=== PATIENT | male | born 1960 | race Caucasian/White ===

== ENCOUNTER 2023-12-03 10:02 | Outpatient (OUT) | payer OTHER, SELFPAY ==
[2023-12-03 11:04] LABS: Basophils Absolute Auto 0.1 10^3/uL (0.0-0.1); Basophils Percent Auto 0.6 % (0.2-2.0); Eosinophils Absolute Auto 0.3 10^3/uL (0.0-0.7); Eosinophils Percent Auto 2.8 % (0.9-7.0); Hematocrit 40.2 % (42.0-54.0); Hemoglobin 13.3 g/dL (14.0-18.0); Immature Granulocytes Abs Auto 0.01 10^3/uL (0.00-0.03); Immature Granulocytes Pct Auto 0.1 % (0.0-0.5); Lymphocytes Absolute Auto 1.6 10^3/uL (1.2-3.8); Lymphocytes Percent Auto 17.2 % (20.5-60.0); Mean Corpuscular HGB Conc 33.1 g/dL (29.9-35.2); Mean Corpuscular Hemoglobin 29.9 pg (25.9-34.0); Mean Corpuscular Volume 90.3 fL (80.0-94.0); Monocytes Absolute Auto 0.7 10^3/uL (0.3-0.8); Monocytes Percent Auto 7.7 % (1.7-12.0); Neutrophils Absolute Auto 6.6 10^3/uL (1.4-6.5); Neutrophils Percent Auto 71.6 % (43.0-75.0); Platelet Count 232 10^3/uL (150-450); Red Blood Count 4.45 10^6/uL (4.70-6.10); Red Cell Distribution Width 12.9 % (11.0-15.0); White Blood Count 9.2 10^3/uL (4.0-11.0)
[2023-12-03 11:44] LABS: Chol HDL Ratio 2.3; Cholesterol 105 mg/dL (<=200); HDL Cholesterol 45 mg/dL (40-60); Triglycerides 50 mg/dL (<=150)
[2023-12-03 12:46] LABS: Prostate Specific Antigen Scrn 0.99 ng/mL (<=4.00)
== END 2023-12-03 10:03 | disposition home or self-care (01) ==
PROVIDERS: PCP Internal Medicine; Visit Provider Internal Medicine
DX: Z00.00 Encounter for general adult medical examination without abnormal findings (principal)
CPT/HCPCS: 36415; 80061; 85025; G0103

== ENCOUNTER 2023-12-23 11:31 | Outpatient (OUT) | payer OTHER, SELFPAY ==
--- NOTE | 2023-12-23 11:37 | XR_ITS ---
[address] [address] Patient Name: CATY DOTY MRN: [id number] date: 1960 Sex: M Assigned Patient Location: LAB Current Patient Location: LAB Accession/Order Number: [id number] Exam Date: 12/23/2023 11:38 Report Date: 12/23/2023 15:18 At the request of: MYRTLE MARTINEZ Procedure: XR shoulder LT min 2V PROCEDURE: XR shoulder LT min 2V COMPARISON: None. HISTORY: Left Shoulder Pain M25.512 FINDINGS: BONES:No acute fracture or dislocation. Mild glenohumeral and acromioclavicular joint osteoarthropathy SOFT TISSUES:Negative. No visible soft tissue swelling. EFFUSION:None visible. OTHER: Negative. XR/XR shoulder LT min 2V IMPRESSION: Mild osteoarthritis Electronically authenticated by: CATY TORRES Date: 12/23/2023 15:18
--- OUTSIDE RECORDS SUMMARY | 2023-12-23 11:54 | XMS_ITS | CCD ---
Author Organization [facility] Care Team Providers Care Insurance Operations Rep Name Role Phone Tae Martinez DO Primary Care Provider JUAN, DR IRAHETA Primary Care Unavailable JUAN, DR IRAHETA Admitting Unavailable JUAN, DR IRAHETA Attending Unavailable JUAN, DR IRAHETA Consulting Unavailable JUAN, DR IRAHETA Admitting Unavailable JUAN, DR IRAHETA Attending Unavailable JUAN, DR IRAHETA Consulting Unavailable JUAN, DR IRAHETA Primary Care Unavailable Tae Martinez DO Primary Care Provider Tae Martinez DO Primary Care Provider Tae Martinez Unavailable LAYLA ROGER Referring Unavailable TAE MARTINEZ Primary Care Unavailable Tae Martinez DO Primary Care Provider JESSE LONGO Attending Unavaila TAE Durbin Primary Care Unavailable KYUNGAPCARLOS Petersen Referring Unavailable TAE MARTINEZ Primary Care Unavailable CARLOS GARCIA Attending Unavailable TAE MARTINEZ Primary Care Unavailable JESSE LONGO Attending Unavaila TAE Durbin Primary Care Unavailable TAE MARTINEZ Primary Care Unavailable TAE MARTINEZ Primary Care Unavailable LAYLA ROGER Referring Unavailable TAE MARTINEZ Primary Care Unavailable LAYLA ROGER Attending Unavailable TAE MARTINEZ Primary Care Unavailable LAYLA ROGER Attending Unavailable JESSE LONGO Admitting Unavaila JESSE Blair Attending Unavaila TAE Durbin Primary Care Unavailable ARCHANA HARKINS Admitting Unavailable ARCHANA HARKINS Attending Unavailable TAE MARTINEZ Primary Care Unavailable Allergies Allergy Classification Reported Allergen(s) Allergy Type Date of Onset Reaction(s) Facility (13 sources) Penicillins; Translations: [PENICILLINS] Drug Allergy 03-20-20 19 Rash [facility] (20 sources) Sulfonamides (Antibiotic); Translations: [SULFA (SULFONAMIDE ANTIBIOTICS)] Drug Allergy 03-20-20 19 Swelling [facility] (20 sources) Penicillins Drug Allergy 03-20-20 19 Rash [facility] (1 source) Penicillins Drug allergy (disorder) [facility] (1 source) Sulfonamides (Antibiotic) Drug allergy (disorder) [facility] (1 source) Sulf-10 Drug allergy Unknown Room n House Other (1 source) patient allergy list reviewed by nurse or physicia Propensity to adverse reactions 02-16-20 14 Comment:Done Room n House Other (2 sources) penicillAMINE Drug Allergy Unknown Room n House Other Medications Current Medications Medication Drug Class(es) Dates Sig (Normalized) Sig (Original) apixaban 5 mg oral tablet (20 sources) Factor Xa Inhibitor Start: 01-19-2021 End: 05-17-2023 take 1 tablet by mouth twice daily apixaban (ELIQUIS) 5 mg tab(s) Take 1 tablet by mouth two times a day. 180 tablet 3 05/17/2023 Active Comment on above: Take 5 mg by mouth t wice daily. Take 1 tablet by hansel th twice daily. Take 1 tablet by hansel th two times a day. benazepril hydrochloride 20 mg oral tablet (20 sources) Angiotensin Converting Enzyme Inhibitor Start: 02-10-2019 take 1 tablet by mouth once daily benazepril (LOTENSIN) 20 mg tablet Take 20 mg by mouth once daily. 0 02/10/2019 Active Comment on above: Take 20 mg by mouth once daily. cholecalciferol 0.05 mg oral capsule (20 sources) Vitamin D Start: 10-14-2019 take 1 capsule by mouth once daily Cholecalciferol, Vitamin D3, 50 mcg (2,000 unit) cap Take 2,000 Units by mouth once daily. 0 10/14/2019 Active Comment on above: Take 2,000 Units by mouth once daily. escitalopram 10 mg oral tablet (3 sources) Serotonin Reuptake Inhibitor take 1 tablet by mouth every twenty-four hours Escitalopram Oxalate 10 MG 1 tablet Orally Once a day Active ezetimibe 10 mg oral tablet (10 sources) Dietary Cholesterol Absorption Inhibitor Start: 05-21-2023 take 1 tablet by mouth once daily ezetimibe (ZETIA) 10 mg tablet Take 1 tablet by mouth once daily. 90 tablet 3 05/21/2023 Active Comment on above: Take 1 tablet by hansel once daily. flecainide acetate 100 mg oral tablet (4 sources) Antiarrhythmic Start: 11-08-2023 take 1 tablet by mouth twice daily flecainide (TAMBOCOR) 100 mg tablet Take 1 tablet by mouth two times a day. 60 tablet 2 11/08/2023 Active glucosamine/chondr prieto A sod (OSTEO BI-FLEX ORAL) (20 sources) take 2 tablets by mouth once glucosamine/chond r prieto A sod (OSTEO BI-FLEX ORAL) Take 2 tablets by mouth one time only. 0 Active glucosamine/zuri dr prieto A sod (OSTEO BI-FLEX ORAL) Take by mouth twice daily. 0 Active Comment on above: Take by mouth twice daily. Take 2 tablets by mo [facility] one time only. iv contrast (will be provided with radiology test) (2 sources) Start: End: inject 1 dose intravenously once iv contrast (will be provided with radiology test) CTA Coronary. No IV access, insert saline lock prior to the sedation, infusion, injection for imaging exam. Discontinue saline lock post exam. If Pt. has a central line or IVAD, may access for administration according to line specific nursing protocol. Once exam is complete flush line and de-access according to line specific nursing protocol in the CT contrast administration guidelines link. 1 Each 0 11/09/2021 11/10/2021 Active Comment on above: CTA Coronary. No IV access, insert saline lock prior to the sedation, infusion, injection for imaging exam. Discontinue saline lock post exam. If Pt. has a central line or IVAD, may access for administration according to line specific nursing protocol. Once exam is complete flush line and de-access according to line specific nursing protocol in the CT contrast administration guidelines link. MEN'S MULTI-VITAMIN ORAL (20 sources) MEN'S MULTI-LEVI MIN ORAL Take by mouth once daily. 0 Active Comment on above: Take by mouth once d aily. 24 hr metoprolol succinate 25 mg extended release oral tablet (20 sources) beta-Adrenergic Leia Start: End: take 1 tablet by mouth once daily at bedtime metoprolol succinate ER (TOPROL XL) 25 mg 24 hr tablet Take 1 tablet by mouth daily at bedtime. 90 tablet 3 12/20/2023 12/19/2024 Active Start: 11-27-2023 End: 12-20-2023 take 0.5 tablet by mouth once daily at bedtime metoprolol succinate ER (TOPROL XL) 50 mg 24 hr tablet Indications: Persistent atrial fibrillation (HCC) Take 1/2 tablet by mouth daily at bedtime. 30 tablet 1 11/27/2023 12/20/2023 Discontinued Start: 10-11-2023 take 1 tablet by hansel th once daily at bedtime metoprolol succinate ER (TOPROL XL) 50 mg 24 hr tablet Indications: Persistent atrial fibrillation (HCC) Take 1 tablet by mouth daily at bedtime. 30 tablet 1 10/11/2023 Active Start: 11-27-2021 End: 12-20-2021 metoprolol tartrate, short a cting, (LOPRESSOR) 50 mg tablet Take one 50 mg tablet the evening prior to the CTA examination, take another 50 mg tablet the morning of the CTA examination. 2 tablet 0 11/27/2021 12/20/2021 Discontinued Start: 11-09-2021 End: 11-09-2021 metoprolol tartrate, short a cting, (LOPRESSOR) 50 mg tablet Take one 50 mg tablet the evening prior to the CTA examination, take another 50 mg tablet the morning of the CTA examination. 2 tablet 0 11/09/2021 11/09/2021 Discontinued (Course of therapy completed) Comment on above: Take one 50 mg table t the evening prior to the CTA examination, take another 50 mg tablet the morning of the CTA examination. Take 50mg (1 tablet) at night at 9PM prior to coronary CTA if HR > 60 bpm, and in AM 1 tablet (if HR > 60 bpm). Take 50mg (1 tablet) at night at 9PM prior to coronary CTA if HR is more than 60 bpm, and 1 tablet in the morning if HR is more than 60 bpm). Take 1 tablet by hansel th daily at bedtime. nitroglycerin 0.4 mg sublingual tablet (20 sources) Nitrate Vasodilator Start: 11-10-19 End: 05-11-20 take 1 tablet under the tongue once nitroglycerin sublingual (NITROQUICK) 0.3 mg SL tablet Dissolve 1 tablet under the tongue one time only for 1 dose. To be administered in Radiology for CTA exam 1 tablet 0 11/27/2021 05/11/2022 Discontinued Start: 03-03-2021 End: 05-17-2023 nitroglycerin sublingual (NI TROQUICK) 0.4 mg SL tablet Dissolve 1 tablet under the tongue every 5 minutes as needed for chest pain. If no pain relief call 911. 25 tablet 3 05/17/2023 Active Comment on above: Dissolve 1 tablet un faustino the tongue one time only for 1 dose. To be administered in Radiology for CTA exam Dissolve 1 tablet un faustino the tongue every 5 minutes as needed for chest pain. If no pain relief call 911. perflutren lipid microspheres 1.3 mL in NaCl (PF) 0.9% 10 mL injection (DEFINITY) (7 sources) Start: 11-10-19 22 End: 02-09-20 23 perflutren lipid microspheres 1.3 mL in NaCl (PF) 0.9% 10 mL injection (DEFINITY) rosuvastatin calcium 40 mg oral tablet (20 sources) HMG-CoA Reductase Inhibitor Start: 05-13-20 End: 04-25-20 23 rosuvastatin (CRESTOR) 40 mg tablet take 1 tablet at bedtime 90 tablet 3 04/25/2023 Active Comment on above: Take 1 tablet by hansel th daily at bedtime. TAKE 1 TABLET AT BED TIME s-adenosylmethionine 400 mg oral tablet (20 sources) take 1 tablet by mouth once daily S-Adenosylmethionin e 400 mg tab Take 400 mg by mouth once daily. 0 Active Comment on above: Take 400 mg by mouth once daily. 125 ml sodium chloride 9 mg/ml prefilled syringe (20 sources) Start: 03-03-20 21 End: 02-09-20 23 sodium chloride 0.9 % (flush) 10 mL (BD POSIFLUSH) Comment on above: Inject 2-10 mL intra venously as directed. For Echo procedure sucralfate 1000 mg oral tablet (3 sources) Aluminum Complex Start: 07-18-19 End: 08-17-19 take 1 tablet by mouth four times daily sucralfate (CARAFATE) 1 gram tablet Take 1 tablet by mouth four times daily. 120 tablet 0 07/18/2022 08/17/2022 Active Comment on above: Take 1 tablet by hansel th four times daily. ubidecarenone 200 mg oral capsule (20 sources) take 10 capsules by mouth once daily Coenzyme Q10 200 mg cap Take 200 mg by mouth once daily. 0 Active Comment on above: Take 200 mg by mouth once daily. Zinc (20 sources) Start: 10-14-19 20 take 1 tablet by mouth once daily Zinc 50 mg tab Take 1 tablet by mouth once daily. 0 10/14/2019 Active Comment on above: Take 1 tablet by hansel th once daily. Completed/Discontinued Medications Medication Drug Class(es) Dates Sig (Normalized) Sig (Original) amiodarone hydrochloride 200 mg oral tablet (5 sources) Antiarrhythmic Start: 11-01-2022 End: 01-17-2023 take 1 tablet by mouth once daily amiodarone (PACERONE) 200 mg tablet Take 1 tablet by mouth once daily. 30 tablet 3 11/01/2022 01/17/2023 Discontinued (Course of therapy completed) Comment on above: Take 1 tablet by hansel once daily. aspirin 81 mg delayed release oral tablet (16 sources) Platelet Aggregation Inhibitor, Nonsteroidal Anti-inflammatory Drug Start: 03-03-2021 take 1 tablet by mouth once daily aspirin, enteric coated (ADULT LOW DOSE ASPIRIN) 81 mg EC tablet Take 1 tablet by mouth once daily. 90 tablet 0 03/03/2021 Active Comment on above: Take 1 tablet by hansel once daily. 10 ml lidocaine hydrochloride 10 mg/ml injection (2 sources) Antiarrhythmic, Amide Local Anesthetic Start: 03-06-2022 End: 03-06-2022 lidocaine (PF) 10 mg/mL (1 %) 4 mL injection (XYLOCAINE) Start: 03-06-2022 End: 03-06-2022 lidocaine (PF) 10 mg/mL (1 % ) 4 mL injection (XYLOCAINE) 1 ml methylPREDNISolone acetate 40 mg/ml injection (2 sources) Corticosteroid Start: 03-06-2022 End: 03-06-2022 methylPREDNISolone acetate 40 mg injection (DEPO-Medrol) Start: 03-06-2022 End: 03-06-2022 methylPREDNISolone acetate 4 0 mg injection (DEPO-Medrol) pantoprazole 40 mg delayed release oral tablet (6 sources) Proton Pump Inhibitor Start: 07-18-2022 End: 08-17-2022 take 1 tablet by mouth twice daily pantoprazole DR (PROTONIX) 40 mg tablet Take 1 tablet by mouth twice daily. 60 tablet 0 07/18/2022 Active Comment on above: Take 1 tablet by hansel th twice daily. sotalol hydrochloride 80 mg oral tablet (20 sources) Antiarrhythmic Start: 08-03-2022 End: 11-01-2022 take 1 tablet by mouth once daily sotalol (BETAPACE) 80 mg tablet Take 1 tablet by mouth once daily. 90 tablet 2 08/03/2022 11/01/2022 Discontinued (Course of therapy completed) Start: 11-09-2021 End: 07-04-2022 take 1 tablet by mouth once daily sotalol (BETAPACE) 80 mg tablet Take 1 tablet by mouth once daily. 30 tablet 4 06/04/2022 Active Start: 09-09-2021 End: 11-09-2021 take 1 tablet by mouth twice daily sotalol (BETAPACE) 80 mg tablet Take 1 tablet by mouth twice daily. 60 tablet 3 09/09/2021 11/09/2021 Discontinued Comment on above: Take 1 tablet by hansel th twice daily. Take 1 tablet by hansel th once daily. TAKE 1 TABLET BY HANSEL TH EVERY DAY Problems Active Problems Problem Classification Problem Date Documented Da te Episodic/Chronic Administrative/social admission (1 source) Repeated prescription; Translations: [Encounter for issue of repeat prescription] Episodic Anxiety disorders (4 sources) Generalized anxiety disorder; Translations: [Generalized anxiety disorder] Chronic Cardiac dysrhythmias (20 sources) Persistent atrial fibrillation; Translations: [Other persistent atrial fibrillation] Resolved: 04-21-2021 Chronic Coronary atherosclerosis and other heart disease (5 sources) Coronary atherosclerosis; Translations: [Atherosclerotic heart disease of [place] coronary artery without angina pectoris] Onset: 05-20-2023 Chronic Deficiency and other anemia (4 sources) Anemia, unspecified; Translations: [ANEMIA UNSPECIFIED] Onset: 03-16-2022 Episodic Deficiency and other anemia (1 source) Anemia; Translations: [Anemia, unspecified] Episodic Disorders of lipid metabolism (20 sources) Hyperlipidemia; Translations: [Other hyperlipidemia] Onset: 02-15-2014 Chronic Essential hypertension (20 sources) Essential hypertension; Translations: [Essential (primary) hypertension] Onset: 02-15-2014 Chronic Hyperplasia of prostate (5 sources) Benign prostatic hypertrophy without outflow obstruction; Translations: [Hypertrophy (benign) of prostate without urinary obstruction and other lower urinary tract symptoms [LUTS]] Onset: 02-15-2014 Chronic Immunizations and screening for infectious disease (2 sources) Anti-nuclear factor positive; Translations: [Other specified abnormal immunological findings in serum] Episodic Mycoses (2 sources) Onychomycosis due to dermatophyte ; Translations: [Tinea unguium] Episodic Osteoarthritis (5 sources) Primary gonarthrosis, bilateral; Translations: [Bilateral primary osteoarthritis of knee] Onset: 04-27-2015 Chronic Other aftercare (1 source) Long-term current use of drug therapy; Translations: [Other terminologist (current) drug therapy] Episodic Other aftercare (1 source) 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; 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] 11-08-2023 Episodic Other nutritional; endocrine; and metabolic disorders (1 source) Body mass index 30+ - obesity; Translations: [Body mass index 31.0-31.9, adult] Onset: 02-15-2014 Chronic Other nutritional; endocrine; and metabolic disorders (1 source) Obese class I; Translations: [Body mass index 32.0-32.9, adult] Onset: 02-15-2014 Chronic Other nutritional; endocrine; and metabolic disorders (1 source) Obesity; Translations: [Obesity, unspecified] Onset: 02-15-2014 Chronic Other nutritional; endocrine; and metabolic disorders (1 source) Simple obesity ; Translations: [Other obesity due to excess calories] Onset: 02-15-2014 Chronic Other screening for suspected conditions (not mental disorders or infectious disease) (20 sources) Suspected heart disease; Translations: [Encounter for observation for other suspected diseases and conditions ruled out] Onset: 12-05-2021 Resolved: 04-21-2021 Episodic Pulmonary heart disease (2 sources) Pulmonary hypertension; Translations: [Pulmonary hypertension, unspecified] Chronic Residual codes; unclassified (4 sources) Obstructive sleep apnea syndrome; Translations: [Obstructive sleep apnea (adult) (pediatric)] Chronic Residual codes; unclassified (1 source) Obstructive sleep apnea (adult) (pediatric) Chronic Residual codes; unclassified (5 sources) Sleep apnea; Translations: [Sleep apnea, unspecified] Onset: 10-15-2023 10-15-2023 Chronic Residual codes; unclassified (1 source) H/O: atrial fibrillation; Translations: [Other specified postprocedural states] 11-08-2023 Episodic Thyroid disorders (5 sources) Hypothyroidism; Translations: [Other specified hypothyroidism] Onset: 04-14-2018 Chronic Unclassified (1 source) Aneurysm of the ascending aorta, without rupture; Translations: [Aneurysm of the ascending aorta, without rupture] Unclassified (4 sources) Other persistent atrial fibrillation; Translations: [Persistent atrial fibrillation (HCC)] Onset: 07-18-2022 Past or Other Problems Problem Classification Problem Date Documented Da te Episodic/Chronic Joint disorders and dislocations; trauma-related (2 sources) Current tear of medial cartilage AND/OR meniscus of knee; Translations: [Other tear of medial meniscus, current injury, right knee, initial encounter] Onset: 02-25-2019 Episodic Open wounds of extremities (1 source) Laceration with foreign body, left lower leg, subsequent encounter; Translations: [Laceration with foreign body, left lower leg, subsequent encounter] Onset: 04-14-2018 Episodic Other endocrine disorders (1 source) Disorder of endocrine system; Translations: [Unspecified endocrine disorder] Onset: 02-15-2018 Episodic Other non-traumatic joint disorders (20 sources) Pain in left knee; Translations: [Pain in joint, lower leg] Onset: 07-17-2021 07-17-2021 Episodic Other nutritional; endocrine; and metabolic disorders (1 source) Overweight; Translations: [Overweight] Resolved: 12-14-2021 Episodic Other nutritional; endocrine; and metabolic disorders (1 source) Body mass index 25-29 - overweight; Translations: [Body mass index 28.0-28.9, adult] Onset: 02-25-2019 Episodic Other skin disorders (1 source) Actinic keratosis; Translations: [Actinic keratosis] Onset: 09-12-2016 Episodic Sprains and strains (2 sources) Sprain of left rotator cuff capsule; Translations: [Sprain of left rotator cuff capsule, initial encounter] Onset: 06-24-2018 Episodic Results Test Name Value Interpretation Reference Range Facility ANES POSTPROC EVALon 024 ANES POSTPROC EVAL HNO ID: [id number] Author: ANTOINETTE COSBY MD Service: Critical Care Author Type: Anesthesiologist Type: Anesthesia Postprocedure Evaluation Filed: 11/27/2023 10:50 Note Text: POST ANESTHESIA EVALUATION NOTE : 1960 Procedure Summary Date: 11/27/23 Room / Location: CATH07 / [facility] CATH Anesthesia Start: 934 Anesthesia Stop: 941 Procedure: CARDIOVERSION EXTERNAL ELECTIVE Diagnosis: Atrial fibrillation, unspecified type (HCC) (Atrial fibrillation, unspecified type (HCC) [I48.91]) Surgeons: Archana Harkins MD Responsible Provider: Antoinette Cosby MD Anesthesia Type: general ASA Status: 3 Anesthesia Type: general Airway Type: supplemental O2 Last Vitals Vitals Value Taken Time BP 106/73 11/27/23 1045 Temp 36.2 ?C (97.2 ?F) 11/27/23 1015 HR SpO2 50 11/27/23 1048 Resp 23 11/27/23 1048 SpO2 96 % 11/27/23 1048 Vitals shown include unfiled device data. Post Anesthesia Patient Status Patient Evaluation: PACU. PACU/ICU Patient Condition: stable. Anticipated Disposition: phase 2 then home. Neurological Status: aware and responsive. Pulmonary Status: breathing comfortably on room air Airway Control: returned to baseline unsupported. Cardiovascular Status: stable. Pain Management: clinically adequate Postoperative Hydration: acceptable. Intraoperative Events: no significant anesthesia events Recommendation: continue current plan of care. Anesthesia Observations No Documentation SIGNATURE: Antoinette Cosby MD PATIENT NAME: Caty Kohli DATE: November 27, 2023 TIME: 10:49 AM CSN: [id number] [facility] ANES PRE-OPon 11-27-2023 ANES PRE-OP HNO ID: [id number] Author: ANTOINETTE COSBY MD Service: Critical Care Author Type: Anesthesiologist Type: Anesthesia Preprocedure Evaluation Filed: 11/27/2023 08:37 Note Text: ANESTHESIOLOGY DAY OF SURGERY NOTE : 1960 Procedure Information Date/Time: 11/27/23929 Procedure: CARDIOVERSION EXTERNAL ELECTIVE Location: CATH07 / CATH Surgeons: Archana Harkins MD Estimated body mass index is 27.8 kg/m? as calculated from the following: Height as of this encounter: 188 cm (6' 2 ). Weight as of this encounter: 98.2 kg (216 lb 8 oz). Most recent hematocrit and potassium results: Hematocrit 44.2 11/25/2023 Potassium 4.7 11/25/2023 Relevant Problems ANESTHESIA (+) Sleep apnea CARDIO (+) Atrial fibrillation (HCC) (+) Essential hypertension PULMONARY (+) Sleep apnea I - PHYSICAL EVALUATION AIRWAY Patient intubated: No. Tracheostomy tube not present Mallampati: III. TM distance: >3 FB. Neck ROM: full ROM without neurological symptoms. Mouth opening: adequate. Short neck: no. Thick neck: no DENTAL Dental findings: teeth intact. Additional exam findings: yes. CARDIOVASCULAR Normal cardiovascular observations. Rhythm: irregular Rate: normal PULMONARY Normal pulmonary observations. Breath sounds clear to auscultation. II - ANESTHESIA PLAN ASA Score: 3 Anesthetic Plan: general Airway type: supplemental O2 NPO Status: adequate Beta Leia Monitoring Plan Monitoring plan: standard ASA. Post Procedure Analgesic Plan Postoperative analgesic plan: parenteral or oral opioids. Informed Consent Anesthetic risks, benefits, alternatives, personnel and consent discussed: yes. Patient / Responsible Democrat agrees to proceed: yes Patient / Surrogate agrees to blood products: blood products not planned Significant changes in the patient condition since the History and Physical, not otherwise documented in primary service progress note: no. Potential Anesthesia issues that may suggest increased risk of complications or contraindication to planned procedure: none. Vitals Value Taken Time BP 113/87 11/27/23 0820 Pulse 108 11/27/23 0820 Resp 18 11/27/23 0820 Temp 36.1 ?C (96.9 ?F) 11/27/23 0820 SpO2 95 % 11/27/23 0820 No current facility-administered medications on file as of 11/27/2023. Outpatient Medications as of 11/27/2023 Medication Sig flecainide (TAMBOCOR) 100 mg tablet Take 1 tablet by mouth two times a day. metoprolol succinate ER (TOPROL XL) 50 mg 24 hr tablet Take 1 tablet by mouth daily at bedtime. ezetimibe (ZETIA) 10 mg tablet Take 1 tablet by mouth once daily. apixaban (ELIQUIS) 5 mg tab(s) Take 1 tablet by mouth two times a day. nitroglycerin sublingual (NITROQUICK) 0.4 mg SL tablet Dissolve 1 tablet under the tongue every 5 minutes as needed for chest pain. If no pain relief call 911. rosuvastatin (CRESTOR) 40 mg tablet take 1 tablet at bedtime Cholecalciferol, Vitamin D3, 50 mcg (2,000 unit) cap Take 2,000 Units by mouth once daily. Zinc 50 mg tab Take 1 tablet by mouth once daily. benazepril (LOTENSIN) 20 mg tablet Take 20 mg by mouth once daily. MEN'S MULTI-VITAMIN ORAL Take by mouth once daily. Coenzyme Q10 200 mg cap Take 200 mg by mouth once daily. glucosamine/chondr prieto A sod (OSTEO BI-FLEX ORAL) Take 2 tablets by mouth one time only. S-Adenosylmethionine 400 mg tab Take 400 mg by mouth once daily. I have interviewed and examined the patient. I have reviewed the medical record and/or the pre-anesthesia evaluation, pertinent labs, and test results. This contains updated information obtained within 48 hours of Surgery/Procedure. SIGNATURE: Antoinette Cosby MD PATIENT NAME: Caty Kohli DATE: November 27, 2023 TIME: 8:36 AM CSN: [id number] [facility] BRIEF OP NOTon 11-27-2023 BRIEF OP NOT HNO ID: [id number] Author: ARCHANA HARKINS MD Service: Electrophysiology Author Type: Physician Type: Brief Op Note Filed: 11/27/2023 09:52 Note Text: Uneventful cardioversion of AF to sinus bradycardia under MAC. [facility] ECG COMPLETEon 11-27-2023 ECG COMPLETE Ventricular Rate : 4 4 BPM Atrial Rate : 44 BPM P-R Interval : 203 ms QRS Duration : 110 ms Q-T Interval : 486 ms QTC Calculation(Bazett) : 416 ms Calculated P [place] : 12 degrees Calculated R [place] : -47 degrees Calculated T [place] : -10 degrees Sinus bradycardia Abnormal R-wave progression, late transition Inferior infarct, old Abnormal ECG Confirmed by ARCHANA HARKINS M.D. ([id number]) on 12/01/2023 9:51:31 PM NAME : CATY KOHLI PID : [id number] : 1960 Gender : Male Race : ORD : [id number] Procedure Date : Nov 27 2023 09:40:31 Edit Date : Dec 01 2023 21:51:33 Diagnosis: Sinus bradycardia Abnormal R-wave progression, late transition Inferior infarct, old Abnormal ECG Confirmed by ARCHANA HARKINS M.D. ([id number]) on 12/01/2023 9:51:31 PM Test Reason : Arrhythmia Location : 400 : FVEKG 24 Overread By : ARCHANA HARKINS M.D. Edited By : ARCHANA HARKINS M.D. Referred By : , Acquired by : 400, [facility] ECG COMPLETE Ventricular Rate : 8 4 BPM Atrial Rate : 0 BPM P-R Interval : 191 ms QRS Duration : 113 ms Q-T Interval : 412 ms QTC Calculation(Bazett) : 488 ms Calculated R [place] : -54 degrees Calculated T [place] : 11 degrees Atrial fibrillation Incomplete left bundle branch block Inferior infarct, old Baseline wander in lead(s) V1 Abnormal ECG Confirmed by ARCHANA HARKINS M.D. ([id number]) on 12/01/2023 9:47:55 PM NAME : CATY KOHLI PID : [id number] : 1960 Gender : Male Race : ORD : [id number] Procedure Date : Nov 27 2023 08:25:30 Edit Date : Dec 01 2023 21:47:56 Diagnosis: Atrial fibrillation Incomplete left bundle branch block Inferior infarct, old Baseline wander in lead(s) V1 Abnormal ECG Confirmed by ARCHANA HARKINS M.D. ([id number]) on 12/01/2023 9:47:55 PM Test Reason : Arrhythmia Location : [facility] Overread By : ARCHANA HARKINS M.D. Edited By : ARCHANA HARKINS M.D. Referred By : , Acquired by : 400, [facility] NURSING PROGon 11-27-2023 NURSING PROG HNO ID: [id number] Author: TWLIA PIERRE RN Service: Nursing Author Type: Registered Nurse Type: Nursing Progress Note Filed: 11/27/2023 11:06 Note Text: Nursing Progress Note Topic of Note: post procedure PATIENT NAME: Caty Kohli Patient Location: C D [facility]/ C [facility] Room: C D [facility] ( INVASIVE CARDIOLOGY) Pt in ICRR s/p DCCV. Shocked x1 @275J. Converted from a fib into SB. Neuro intact. Patient tolerating diet. 1044 D/C instructions reviewed with pt AND , verbalized understanding. All questions answered. 1055 Pt ambulated with standby staff assistance, steady gait. 1105 Patient d/c home via w/c in stable condition. All belongings returned. driving. This note was completed by: Twila Pierre Normal [facility] Basic metabolic 2000 panelon 11-25-2023 Anion gap [Moles/Vol] 8 mmol/L Low 9-18 [facility] Comment on above: Order Comment: Speci men Type: BLOOD SPECIMENOrdering Facility: [facility] Address: [address] [place] [address] Performed By: #### 2 4320-2, ####[facility] LABCLIA [id number] [place] [address] Calcium [Mass/Vol] 10.0 mg/dL Normal 8.5-10.2 [facility] Comment on above: Order Comment: Speci men Type: BLOOD SPECIMENOrdering Facility: [facility] Address: [address] [place] [address] Performed By: #### 2 4320-08, ####[facility] LABIA [id number] [place] [address] Chloride [Moles/Vol] 106 mmol/L High 97-105 [facility] Comment on above: Order Comment: Speci men Type: BLOOD SPECIMENOrdering Facility: [facility] Address: [address] [place] [address] Performed By: #### 2 2, ####[facility] LABCLIA [id number] [place] [address] CO2 [Moles/Vol] 27 mmol/L Normal 22-30 [facility] Comment on above: Order Comment: Speci men Type: BLOOD SPECIMENOrdering Facility: [facility] Address: [address] [place] [address] Performed By: #### 2 4322, ####[facility] LABCLIA [id number] [place] [address] Creatinine [Mass/Vol] 0.82 mg/dL Normal 0.73-1.22 [facility] Comment on above: Order Comment: [place] Type: BLOOD SPECIMENOrdering Facility: [facility] Address: [address] [place] [address] Performed By: #### 2 4321-2, ####[facility] LABCLIA [id number] [place] [address] Creatinine and Glomerular filtration rate.predicted panel (S/P/Bld) 97 mL/min/1.73m??? Normal >=60 [facility] Comment on above: Order Comment: [place] Type: BLOOD SPECIMENOrdering Facility: [facility] Address: [address] [place], [place] [address] Result Comment: June mated Glomerular Filtration Rate (eGFR) is calculated using the 2020 CKD-EPI creatinine equation. This equation utilizes serum creatinine, sex, and age as parameters. The creatinine assay has traceable calibration to isotope dilution-mass spectrometry. Refer to KDIGO guidelines for clinical interpretation. In patients with unstable renal function, e.g. those with acute kidney injury, the eGFR may not accurately reflect actual GFR. Performed By: #### 2 4321-2, ####[facility] LABCLIA [id number] [place] [address] Glucose [Mass/Vol] 101 mg/dL High 74-99 [facility] Comment on above: Order Comment: [place] Type: BLOOD SPECIMENOrdering Facility: [facility] Address: [address] [place] [address] Result Comment: The [place] Diabetes Association (ADA) provides guidance for cutoff values for fasting glucose and random glucose. The ADA defines fasting as no caloric intake for at least 8 hours. Fasting plasma glucose results between 100 to 125 mg/dL indicate increased risk for diabetes (prediabetes). Fasting plasma glucose results greater than or equal to 126 mg/dL meet the criteria for diagnosis of diabetes. In the absence of unequivocal hyperglycemia, results should be confirmed by repeat testing. In a patient with classic symptoms of hyperglycemia or hyperglycemic crisis, random plasma glucose results greater than or equal to 200 mg/dL meet the criteria for diagnosis of diabetes. Reference: Standards of Medical Care in Diabetes 2016, [place] Diabetes Association. Diabetes Care. 2016.39(Suppl 1). Performed By: #### 2 4321-2, ####[facility] LABCLIA [id number] [place] [address] Potassium [Moles/Vol] 4.7 mmol/L Normal 3.7-5.1 [facility] Comment on above: Order Comment: Speci men Type: BLOOD SPECIMENOrdering Facility: [facility] Address: [address] [place], [place] [address] Performed By: #### 2 432-2, ####[facility] LABIA [id number] [place] [address] Sodium [Moles/Vol] 141 mmol/L Normal 136-144 [facility] Comment on above: Order Comment: Speci men Type: BLOOD SPECIMENOrdering Facility: [facility] Address: [address] [place] [address] Performed By: #### 2 432-2, ####[facility] LABIA [id number] [place] [address] Urea nitrogen [Mass/Vol] 16 mg/dL Normal 9-24 [facility] Comment on above: Order Comment: Speci men Type: BLOOD SPECIMENOrdering Facility: [facility] Address: [address] [place] [address] Performed By: #### 2 432-2, ####[facility] LABIA [id number] [place] [address] CBC panel Auto (Bld)on 11-24 Erythrocyte distribution width (RBC) [Ratio] 13.2 % Normal 11.5-15.0 [facility] Comment on above: Order Comment: Speci men Type: BLOOD SPECIMENOrdering Facility: [facility] Address: [address] [place] [address] Performed By: #### 5 8410-2 ####[facility] LABCLIA [id number] [place] [address] Hematocrit (Bld) [Volume fraction] 44.2 % Normal 39.0-51.0 [facility] Comment on above: Order Comment: Speci men Type: BLOOD SPECIMENOrdering Facility: [facility] Address: [address] [place] [address] Performed By: #### 5 8410-2 ####[facility] LABCLIA [id number] [place] [address] Hemoglobin (Bld) [Mass/Vol] 14.7 g/dL Normal 13.0-17.0 [facility] Comment on above: Order Comment: Speci men Type: BLOOD SPECIMENOrdering Facility: [facility] Address: [address] [place] [address] Performed By: #### 5 8410-2 ####[facility] LABCLIA [id number] [place] [address] MCH (RBC) [Entitic mass] 30.1 pg Normal 26.0-34.0 [facility] Comment on above: Order Comment: Speci men Type: BLOOD SPECIMENOrdering Facility: [facility] Address: [address] [place] [address] Performed By: #### 5 8410-2 ####[facility] LABCLIA [id number] [place] [address] MCHC (RBC) [Mass/Vol] 33.3 g/dL Normal 30.5-36.0 [facility] Comment on above: Order Comment: Speci men Type: BLOOD SPECIMENOrdering Facility: [facility] Address: [address] [place] [address] Performed By: #### 5 8410-2 ####[facility] LABCLIA [id number] [place] [address] MCV (RBC) [Entitic vol] 90.4 fL Normal 80.0-100.0 [facility] Comment on above: Order Comment: Speci men Type: BLOOD SPECIMENOrdering Facility: [facility] Address: [address] [place] [address] Performed By: #### 5 8410-2 ####[facility] LABCLIA [id number] [place] [address] Nucleated RBC (Bld) [#/Vol] 10*3/uL Normal <0.01 [facility] Comment on above: Order Comment: Speci men Type: BLOOD SPECIMENOrdering Facility: [facility] Address: [address] [place] [address] Performed By: #### 5 8410-2 ####[facility] LABCLIA [id number] [place] [address] Platelet mean volume (Bld) [Entitic vol] 9.8 fL Normal 9.0-12.7 [facility] Comment on above: Order Comment: Speci men Type: BLOOD SPECIMENOrdering Facility: [facility] Address: [address] [place] [address] Performed By: #### 5 8410-2 ####[facility] LABCLIA [id number] [place] [address] Platelets (Bld) [#/Vol] 223 10*3/uL Normal 150-400 [facility] Comment on above: Order Comment: Speci men Type: BLOOD SPECIMENOrdering Facility: [facility] Address: [address] [place] [address] Performed By: #### 5 8410-2 ####[facility] LABCLIA [id number] [place] [address] RBC (Bld) [#/Vol] 4.89 10*6/uL Normal 4.20-6.00 [facility] Comment on above: Order Comment: Speci men Type: BLOOD SPECIMENOrdering Facility: [facility] Address: [address] [place] [address] Performed By: #### 5 8410-2 ####[facility] LABCLIA [id number] [place] [address] WBC (Bld) [#/Vol] 8.76 10*3/uL Normal 3.70-11.00 [facility] Comment on above: Order Comment: Speci men Type: BLOOD SPECIMENOrdering Facility: [facility] Address: [address] [place] [address] Performed By: #### 5 8410-2 ####[facility] LABCLIA [id number] [place] [address] Magnesium SerPl-ncon 11-24 Magnesium [Mass/Vol] 2.2 mg/dL Normal 1.7-2.3 [facility] Comment on above: Order Comment: Speci men Type: BLOOD SPECIMENOrdering Facility: [facility] Address: [address] [place] [address] Performed By: #### 2 4321-2, 49507-9 ####[facility] LABIA [id number] [place] [address] CNPNon 11-21-2023 CNPN Telephone (CAEPAV) CATY KOHLI ([id number]) 1960 [facility] [employer]* Date Time Provider Department 11/21/23 LAYLA ROGER During your visit today, we recorded the following information about you: Layla Roger PA-C 11/21/2023 8:13 AM Signed EKG from 11/14 shows persistent AF Please offer him a cardioversion (we discussed this at last office visit) He will need updated labs (ordered) Dr Donta hall in December needs to stay and he may be set up for redo ablation JANY Luis Ole Gutierrez 11/21/2023 9:14 AM Signed Called and left message for patient to call me back to schedule his cardioversion and to get labs done. Allergies As of Date: 11/21/2023 Noted Allergy Reaction PENICILLINS 03/20/2019 2 - Rash SULFA (SULFONAMIDE ANTIBIOTICS) 03/20/2019 7 - Swelling Date Reviewed: 11/08/2023 Reviewed by: Mary Santo LPN - Fully Assessed Reason for Visit: Patient Update [1234] Primary Visit Diagnosis:Persistent atrial fibrillation (HCC) [I48.19] Order(s):CARDIOVERSIO N, ELECTIVE, ELECTRICAL [[id number]] Order #: [id number]: 1 COMPLETE BLOOD COUNT [SQCBC] Order #: [id number] FUTURE BASIC METABOLIC PANEL [SQBMP] Order #: [id number] FUTURE MAGNESIUM [SQMG1] Order #: [id number] FUTURE Prescriptions as of 11/21/2023 - flecainide (TAMBOCOR) 100 mg tablet Take 1 tablet by mouth two times a day. - metoprolol succinate ER (TOPROL XL) 50 mg 24 hr tablet Take 1 tablet by mouth daily at bedtime. - ezetimibe (ZETIA) 10 mg tablet Take 1 tablet by mouth once daily. - apixaban (ELIQUIS) 5 mg tab(s) Take 1 tablet by mouth two times a day. - nitroglycerin sublingual (NITROQUICK) 0.4 mg SL tablet Dissolve 1 tablet under the tongue every 5 minutes as needed for chest pain. If no pain relief call 911. - rosuvastatin (CRESTOR) 40 mg tablet take 1 tablet at bedtime - Cholecalciferol, Vitamin D3, 50 mcg (2,000 unit) cap Take 2,000 Units by mouth once daily. - Zinc 50 mg tab Take 1 tablet by mouth once daily. - benazepril (LOTENSIN) 20 mg tablet Take 20 mg by mouth once daily. - MEN'S MULTI-VITAMIN ORAL Take by mouth once daily. - Coenzyme Q10 200 mg cap Take 200 mg by mouth once daily. - glucosamine/chondr prieto A sod (OSTEO BI-FLEX ORAL) Take 2 tablets by mouth one time only. - S-Adenosylmethionine 400 mg tab Take 400 mg by mouth once daily. Problem List As Of Date 11/21/2023 Noted Resolved Essential hypertension [I10] 04/08/2018 Under observation for suspected coronary artery* Atrial fibrillation (HCC) [I48.91] Other hyperlipidemia [E78.49] Elevated TSH [R79.89] Pain in left knee [M25.562] 07/17/2021 Abnormal cardiovascular stress test [R94.39] 12/19/2021 Sleep apnea [G47.30] 10/15/2023 Encounter Status:Closed by LAYLA ROGER on 11/21/23 [facility] CNOVon 11-15-2023 CNOV Office Visit (CARDAV ) CATY KOHLI ([id number]) 1960 [facility]* Date Time Provider Department 11/15/23 8:30 AM NURSE CARD [facility] JOVANY HICKMAN During your visit today, we recorded the following information about you: Katlyn Orellana RN 11/15/2023 8:43 AM Signed Pt here for EKG . Pt was started on new medication last week and here for follow up EKG. Pt with no symptoms . Provider notified of completion Referring Provider: LAYLA ROGER [[id number]] Allergies As of Date: 11/15/2023 Noted Allergy Reaction PENICILLINS 03/20/2019 2 - Rash SULFA (SULFONAMIDE ANTIBIOTICS) 03/20/2019 7 - Swelling Date Reviewed: 11/08/2023 Reviewed by: Mary Santo LPN - Fully Assessed Reason for Visit: Nurse Visit [792] Visit Diagnosis:Persistent atrial fibrillation (HCC) [I48.19] Order(s):ECG COMPLETE [ECG01] Order #: [id number] Prescriptions as of 11/15/2023 - flecainide (TAMBOCOR) 100 mg tablet Take 1 tablet by mouth two times a day. - metoprolol succinate ER (TOPROL XL) 50 mg 24 hr tablet Take 1 tablet by mouth daily at bedtime. - ezetimibe (ZETIA) 10 mg tablet Take 1 tablet by mouth once daily. - apixaban (ELIQUIS) 5 mg tab(s) Take 1 tablet by mouth two times a day. - nitroglycerin sublingual (NITROQUICK) 0.4 mg SL tablet Dissolve 1 tablet under the tongue every 5 minutes as needed for chest pain. If no pain relief call 911. - rosuvastatin (CRESTOR) 40 mg tablet take 1 tablet at bedtime - Cholecalciferol, Vitamin D3, 50 mcg (2,000 unit) cap Take 2,000 Units by mouth once daily. - Zinc 50 mg tab Take 1 tablet by mouth once daily. - benazepril (LOTENSIN) 20 mg tablet Take 20 mg by mouth once daily. - MEN'S MULTI-VITAMIN ORAL Take by mouth once daily. - Coenzyme Q10 200 mg cap Take 200 mg by mouth once daily. - glucosamine/chondr prieto A sod (OSTEO BI-FLEX ORAL) Take 2 tablets by mouth one time only. - S-Adenosylmethionine 400 mg tab Take 400 mg by mouth once daily. Problem List As Of Date 11/15/2023 Noted Resolved Essential hypertension [I10] 04/08/2018 Under observation for suspected coronary artery* Atrial fibrillation (HCC) [I48.91] Other hyperlipidemia [E78.49] Elevated TSH [R79.89] Pain in left knee [M25.562] 07/17/2021 Abnormal cardiovascular stress test [R94.39] 12/19/2021 Sleep apnea [G47.30] 10/15/2023 Encounter Status:Closed by KATLYN ORELLANA on 11/15/23 Normal [facility] [id number] 11-15-2023 ECG01 Ventricular Rate : 8 4 BPM QRS Duration : 106 ms Q-T Interval : 398 ms QTC Calculation(Bazett) : 470 ms Calculated R [place] : -62 degrees Calculated T [place] : 40 degrees ATRIAL FIBRILLATION LEFT ANTERIOR FASCICULAR BLOCK CANNOT EXCLUDE INFERIOR MYOCARDIAL INFARCTION (MASKED BY FASCICULAR BLOCK?) , AGE UNDETERMINED ABNORMAL ECG Confirmed by BRETT CHRISTIAN MD ([id number]) on 11/21/2023 8:01:38 PM NAME : CATY KOHLI PID : [id number] : 1960 Gender : Male Race : ORD : Procedure Date : Nov 15 2023 08:38:39 Edit Date : Nov 21 2023 20:05:18 Diagnosis: ATRIAL FIBRILLATION LEFT ANTERIOR FASCICULAR BLOCK CANNOT EXCLUDE INFERIOR MYOCARDIAL INFARCTION (MASKED BY FASCICULAR BLOCK?) , AGE UNDETERMINED ABNORMAL ECG Confirmed by BRETT CHRISTIAN MD ([id number]) on 11/21/2023 8:01:38 PM Test Reason : Location : 192 : AVCRD Overread By : BRETT CHRISTIAN MD Edited By : BRETT CHRISTIAN MD Referred By : LAYLA ROGER Acquired by : , Normal [facility] CNOVon 11-08-2023 CNOV Office Visit (CAEPAV ) CATY KOHLI ([id number]) 1960 [facility]* Date Time Provider Department 11/08/23 4:00 PM LAYLA ROGER CAEPAV During your visit today, we recorded the following information about you: Pulse Blood pressure Weight Height 84/minute 132/80 99.3 kg 1.88 m Layla Roger PA-C 11/08/2023 4:34 PM [facility] Hipolito Mathis Department of Cardiovascular Medicine SECTION OF CARDIAC PACING and ELECTROPHYSIOLOGY OUTPATIENT VISIT DATE November 08, 2023 OUTPATIENT VISIT TYPE ESTABLISHED PRIMARY CARE PHYSICIAN: Tae Martinez ([place]osha) [facility] [place] [address] CHIEF COMPLAINT: Cardiology follow up HISTORY OF PRESENT ILLNESS: Mr. Kohli is a 63 year old male who presents today for follow-up visit. He is a patient of Dr Longo and Dr Garcia with history of persistent atrial fibrillation s/p PVI 07/2022, hypertension, dyslipidemia, RA, BPH, DICK (-CPAP). Seen on 10/10 by myself for recurrent atrial fibrillation complaints. Was given Toprol to help with heart rate control and set up for cardioversion that was completed on 10/14. More recently on 10/31 he called the office reporting recurrent atrial fibrillation again, and is here for follow-up Certainly notices a difference between sinus rhythm and atrial fibrillation. Much more fatigued and tired. Not able to do as much is normal. He is not having any swelling problems. Heart rates are overall controlled; 84 on today's EKG atrial fibrillation He denies chest pain, shortness of breath, orthopnea, cough, edema, palpitations, PND, lightheadedness or syncope. PAST CARDIAC HISTORY: See above PAST MEDICAL HISTORY Diagnosis Date Atrial fibrillation (HCC) BPH (benign prostatic hyperplasia) Elevated TSH Essential hypertension Meningitis spinal 1964 Osteoarthritis of both knees Other hyperlipidemia Rheumatoid arthritis (HCC) Sleep apnea 10/15/2023 Under observation for suspected coronary artery disease PAST SURGICAL HISTORY Procedure Laterality Date ARTHROSCOPY KNEE DIAGNOSTIC W/WO SYNOVIAL BX SPX Right 2012 SHX CARDIAC RADIOFREQUENCY ABLATION 07/18/2022 PVI/PWI (Afib) TONSILLECTOMY HX SOCIAL HISTORY Social History Tobacco Use Smoking status: Never Smokeless tobacco: Never Vaping Use Vaping Use: Never used Substance Use Topics Alcohol use: Yes Comment: rare Drug use: Never FAMILY HISTORY Problem Relation Age of Onset Coronary Artery Disease Father 57 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 ezetimibe (ZETIA) 10 mg tablet Take 1 tablet by mouth once daily. apixaban (ELIQUIS) 5 mg tab(s) Take 1 tablet by mouth two times a day. nitroglycerin sublingual (NITROQUICK) 0.4 mg SL tablet Dissolve 1 tablet under the tongue every 5 minutes as needed for chest pain. If no pain relief call 911. rosuvastatin (CRESTOR) 40 mg tablet take 1 tablet at bedtime Cholecalciferol, Vitamin D3, 50 mcg (2,000 unit) cap Take 2,000 Units by mouth once daily. Zinc 50 mg tab Take 1 tablet by mouth once daily. benazepril (LOTENSIN) 20 mg tablet Take 20 mg by mouth once daily. MEN'S MULTI-VITAMIN ORAL Take by mouth once daily. Coenzyme Q10 200 mg cap Take 200 mg by mouth once daily. glucosamine/chondr prieto A sod (OSTEO BI-FLEX ORAL) Take 2 tablets by mouth one time only. S-Adenosylmethionine 400 mg tab Take 400 mg by mouth once daily. REVIEW OF SYSTEMS: + Findings in bold GENERAL: Negative for: Weight loss or gain, Fever or Chills, Weakness and Sleep difficulties. HEENT: Negative for: Headache, Impaired Vision, Glasses, Hearing Impairment, Ringing in Ears, Nosebleeds, Poor Dental Care, Bleeding Gums and Dentures. NECK: Negative for: Swelling, Pain, Stiffness RESPIRATORY: Negative for: Cough, Blood in Sputum, Shortness of breath, Wheezing, Apnea GASTROINTESTINAL: Negative for: Trouble swallowing, Heartburn, Change in bowel habits, Blood in stool, Dark black stools MUSCULOSKELETAL: Negtive for: Muscle or joint pain, stiffness, Joint swelling NEUROLOGIC/PSYCHIATRI C: Negative for: Weakness, Paralysis, Numbness, Tingling, Tremor, Nervousness or anxiety, Depressed mood, Memory loss SKIN: Negative for: Rash, Itching HEMATOLOGICAL/LYMPHAT IC: Negative for: Easy bruising, Easy bleeding ENDOCRINE: Negative for: Heat or Cold Intolerance, Excessive Sweating, Frequent Urination, Frequent Thirst PHYSICAL EXAMINATION: BP 132/80 (BP Site: Left Arm, BP Position: Sitting, BP Cuff Size: Large Adult) Pulse 84 Ht 188 cm (6' 2.02 ) Wt 99.3 kg (218 lb 14.7 oz) BMI 28.10 kg/m? General: Well appearing, in no acu (more content not included)... Normal [facility] [id number] 11-08-2023 ECG01 Ventricular Rate : 8 4 BPM QRS Duration : 102 ms Q-T Interval : 382 ms QTC Calculation(Bazett) : 451 ms Calculated R [place] : -71 degrees Calculated T [place] : 49 degrees ATRIAL FIBRILLATION LEFT AXIS DEVIATION INFERIOR MYOCARDIAL INFARCTION , AGE UNDETERMINED ABNORMAL ECG Confirmed by BRETT CHRISTIAN MD ([id number]), editor managing newspaper KATLYN ORELLANA ([id number]) on 11/11/2023 2:50:56 PM NAME : CATY KOHIL PID : [id number] : 1960 Gender : Male Race : ORD : Procedure Date : Nov 08 2023 16:12:40 Edit Date : Nov 11 2023 14:51:17 Diagnosis: ATRIAL FIBRILLATION LEFT AXIS DEVIATION INFERIOR MYOCARDIAL INFARCTION , AGE UNDETERMINED ABNORMAL ECG Confirmed by BRETT CHRISTIAN MD ([id number]), editor managing newspaper KATLYN ORELLANA ([id number]) on 11/11/2023 2:50:56 PM Test Reason : Location : 192 : AVCRD Overread By : BRETT CHRISTIAN MD Edited By : KATLYN ORELLANA Referred By : , Acquired by : , Normal [facility] CNPNon 11-01-2023 CNPN Telephone (CAEPAV) CATY KOHLI ([id number]) 1960 [facility]* Date Time Provider Department 11/01/23 JESSE LOGNO CAEPAV During your visit today, we recorded the following information about you: Ciera Segundo, RN 11/01/2023 9:47 AM Signed Patient calling. Cardioversion on 10/15/23. He is back in A-fib since yesterday at 4 pm. He was sitting at his desk, nothing really going on. Rate is currently 87, has been as high as 132. Bp this morning 128/88 Denies dizziness or lightheadedness. No shortness of breath. No chest discomfort. The only unusual thing is that he woke up with slight swelling in his fingers. No swelling in legs/feet/ankles. He feels like he can do his normal routine this morning. Taking eliquis and metoprolol as ordered. His cardioversion follow up appt scheduled for Tuesday 11/07 with Layla Roger. At this time he declines a sooner appt doesn't feel he needs ER, would like to see what provider recommends He asks if we want to see him sooner? Any other recommendations? Cell, detailed message please GO TO THE EMERGENCY ROOM OR CALL 911 IF: * You develop any new symptoms * Your condition worsens * You are concerned or anxious about your condition for any other reason. If you have any questions, call back. Sravani Jimenez RN 11/05/2023 10:10 AM Signed Spoke with patient. Explained Dr. Longo said no additional recommendations at this time and we would see him on Saturday. Patient agreeable. Sravani Jimenez RN Allergies As of Date: 11/01/2023 Noted Allergy Reaction PENICILLINS 03/20/2019 2 - Rash SULFA (SULFONAMIDE ANTIBIOTICS) 03/20/2019 7 - Swelling Date Reviewed: 10/15/2023 Reviewed by: Todd Ledbetter RN - Fully Assessed Reason for Visit: Patient is Back in Afib [Other] Prescriptions as of 11/18/2023 - flecainide (TAMBOCOR) 100 mg tablet Take 1 tablet by mouth two times a day. - metoprolol succinate ER (TOPROL XL) 50 mg 24 hr tablet Take 1 tablet by mouth daily at bedtime. - ezetimibe (ZETIA) 10 mg tablet Take 1 tablet by mouth once daily. - apixaban (ELIQUIS) 5 mg tab(s) Take 1 tablet by mouth two times a day. - nitroglycerin sublingual (NITROQUICK) 0.4 mg SL tablet Dissolve 1 tablet under the tongue every 5 minutes as needed for chest pain. If no pain relief call 911. - rosuvastatin (CRESTOR) 40 mg tablet take 1 tablet at bedtime - Cholecalciferol, Vitamin D3, 50 mcg (2,000 unit) cap Take 2,000 Units by mouth once daily. - Zinc 50 mg tab Take 1 tablet by mouth once daily. - benazepril (LOTENSIN) 20 mg tablet Take 20 mg by mouth once daily. - MEN'S MULTI-VITAMIN ORAL Take by mouth once daily. - Coenzyme Q10 200 mg cap Take 200 mg by mouth once daily. - glucosamine/chondr prieto A sod (OSTEO BI-FLEX ORAL) Take 2 tablets by mouth one time only. - S-Adenosylmethionine 400 mg tab Take 400 mg by mouth once daily. Problem List As Of Date 11/01/2023 Noted Resolved Essential hypertension [I10] 04/08/2018 Under observation for suspected coronary artery* Atrial fibrillation (HCC) [I48.91] Other hyperlipidemia [E78.49] Elevated TSH [R79.89] Pain in left knee [M25.562] 07/17/2021 Abnormal cardiovascular stress test [R94.39] 12/19/2021 Sleep apnea [G47.30] 10/15/2023 Encounter Status:Closed by CIERA SEGUNDO on 11/18/23 [facility] ANES POSTPROC EVALon 024 ANES POSTPROC EVAL HNO ID: [id number] Author: JEMMA DUKE APRN.CRNA Service: Anesthesiology Author Type: Nurse Emt Type: Anesthesia Postprocedure Evaluation Filed: 10/15/2023 11:03 Note Text: POST ANESTHESIA EVALUATION NOTE : 1960 Procedure Summary Date: 10/15/23 Room / Location: CATH07 / CATH Anesthesia Start: 1055 Anesthesia Stop: 1101 Procedure: CARDIOVERSION EXTERNAL ELECTIVE Diagnosis: Atrial fibrillation, persistent (HCC) (Atrial fibrillation, persistent (HCC) [I48.19]) Surgeons: Jesse Longo MD Responsible Provider: Barby Martinez MD Anesthesia Type: general ASA Status: 3 Anesthesia Type: general Airway Type: supplemental O2 Last Vitals Vitals Value Taken Time BP 133/95 10/15/23 1058 Temp 36.1 ?C (97 ?F) 10/15/23 1022 Pulse 71 10/15/23 1100 Resp 26 10/15/23 1100 SpO2 95 % 10/15/23 1100 Post Anesthesia Patient Status Patient Evaluation: bedside. Anticipated Disposition: phase 2 then home. Neurological Status: aware and responsive. Pulmonary Status: breathing comfortably on supplemental oxygen Airway Control: returned to baseline unsupported. Cardiovascular Status: stable. Pain Management: clinically adequate Postoperative Hydration: acceptable. Intraoperative Events: no significant anesthesia events Post Operative Nausea/Vomiting Status: no significant post operative nausea or vomiting Recommendation: continue current plan of care. Anesthesia Observations No Documentation SIGNATURE: Jemma Duke APRN.TOWER CRANE OPERATOR PATIENT NAME: Caty Kohli DATE: October 15, 2023 TIME: 11:03 AM CSN: [id number] [facility] ANES PRE-OPon 10-15-2023 ANES PRE-OP HNO ID: [id number] Author: BARBY MARTINEZ MD Service: Anesthesiology Author Type: Anesthesiologist Type: Anesthesia Preprocedure Evaluation Filed: 10/15/2023 10:30 Note Text: ANESTHESIOLOGY DAY OF SURGERY NOTE : 1960 Procedure Information Date/Time: 10/15/23 1130 Procedure: CARDIOVERSION EXTERNAL ELECTIVE Location: [facility] CATH07 / [facility] CATH Surgeons: Jesse Longo MD Estimated body mass index is 28.35 kg/m? as calculated from the following: Height as of 10/11/23: 188 cm (6' 2.02 ). Weight as of 10/11/23: 100.2 kg (220 lb 14.4 oz). Most recent hematocrit and potassium results: Hematocrit 44.1 10/11/2023 Potassium 5.1 10/11/2023 history of persistent atrial fibrillation s/p PVI 07/2022, hypertension, dyslipidemia, RA, BPH, DICK (no CPAP) Relevant Problems CARDIO (+) Atrial fibrillation (HCC) (+) Essential hypertension I - PHYSICAL EVALUATION AIRWAY Patient intubated: No. Tracheostomy tube not present Mallampati: III. TM distance: >3 FB. Neck ROM: full ROM without neurological symptoms. Mouth opening: adequate. Short neck: no. Thick neck: no DENTAL Dental findings: teeth intact. Additional exam findings: no II - ANESTHESIA PLAN ASA Score: 3 Anesthetic Plan: general Airway type: supplemental O2 The patient is not a current smoker. NPO Status: adequate Beta Leia Monitoring Plan Monitoring plan: standard ASA. Post Procedure Analgesic Plan Informed Consent Anesthetic risks, benefits, alternatives, personnel and consent discussed: yes. Patient / Responsible Democrat agrees to proceed: yes Patient / Surrogate agrees to blood products: Yes No vitals data found for the desired time range. No current facility-administered medications on file as of . Outpatient Medications as of Medication Sig - metoprolol succinate ER (TOPROL XL) 50 mg 24 hr tablet Take 1 tablet by mouth daily at bedtime. - ezetimibe (ZETIA) 10 mg tablet Take 1 tablet by mouth once daily. - apixaban (ELIQUIS) 5 mg tab(s) Take 1 tablet by mouth two times a day. - nitroglycerin sublingual (NITROQUICK) 0.4 mg SL tablet Dissolve 1 tablet under the tongue every 5 minutes as needed for chest pain. If no pain relief call 911. - rosuvastatin (CRESTOR) 40 mg tablet take 1 tablet at bedtime - Cholecalciferol, Vitamin D3, 50 mcg (2,000 unit) cap Take 2,000 Units by mouth once daily. - Zinc 50 mg tab Take 1 tablet by mouth once daily. - benazepril (LOTENSIN) 20 mg tablet Take 20 mg by mouth once daily. - MEN'S MULTI-VITAMIN ORAL Take by mouth once daily. - Coenzyme Q10 200 mg cap Take 200 mg by mouth once daily. - glucosamine/chondr prieto A sod (OSTEO BI-FLEX ORAL) Take 2 tablets by mouth one time only. - S-Adenosylmethionine 400 mg tab Take 400 mg by mouth once daily. I have interviewed and examined the patient. I have reviewed the medical record and/or the pre-anesthesia evaluation, pertinent labs, and test results. This contains updated information obtained within 48 hours of Surgery/Procedure. SIGNATURE: Barby Martinez MD PATIENT NAME: Caty Kohli DATE: October 15, 2023 TIME: 9:22 AM CSN: [id number] Normal [facility] ECG COMPLETEon 10-15-2023 ECG COMPLETE Ventricular Rate : 9 0 BPM Atrial Rate : 100 BPM P-R Interval : 145 ms QRS Duration : 96 ms Q-T Interval : 376 ms QTC Calculation(Bazett) : 460 ms Calculated R [place] : -46 degrees Calculated T [place] : 13 degrees Atrial fibrillation Left anterior fascicular block Abnormal R-wave progression, late transition Baseline wander in lead(s) V1 Abnormal ECG Confirmed by LYNDA TELLEZ MD ([id number]) on 10/28/2023 11:43:15 PM NAME : CATY KOHLI PID : [id number] : 1960 Gender : Male Race : ORD : [id number] Procedure Date : Oct 15 2023 09:49:49 Edit Date : Oct 28 2023 23:43:17 Diagnosis: Atrial fibrillation Left anterior fascicular block Abnormal R-wave progression, late transition Baseline wander in lead(s) V1 Abnormal ECG Confirmed by LYNDA TELLEZ MD ([id number]) on 10/28/2023 11:43:15 PM Test Reason : Pre-OP Location : 400 : FVEKG 19 Overread By : LYNDA TELLEZ MD Edited By : LYNDA TELLEZ MD Referred By : , Acquired by : , Normal [facility] EKGon 10-15-2023 Electrocardiogram Ventricular Rate : 6 1 BPM Atrial Rate : 61 BPM P-R Interval : 163 ms QRS Duration : 102 ms Q-T Interval : 434 ms QTC Calculation(Bazett) : 438 ms Calculated P [place] : -1 degrees Calculated R [place] : -45 degrees Calculated T [place] : 7 degrees Sinus rhythm Abnormal R-wave progression, late transition Inferior infarct, old Abnormal ECG Confirmed by LYNDA TELLEZ MD ([id number]) on 10/28/2023 11:46:31 PM NAME : CATY KOHLI PID : [id number] : 1960 Gender : Male Race : ORD : Procedure Date : Oct 15 2023 11:01:54 Edit Date : Oct 28 2023 23:46:35 Diagnosis: Sinus rhythm Abnormal R-wave progression, late transition Inferior infarct, old Abnormal ECG Confirmed by LYNDA TELLEZ MD ([id number]) on 10/28/2023 11:46:31 PM Test Reason : Location : 400 : [facility] 19 Overread By : LYNDA TELLEZ MD Edited By : LYNDA TELLEZ MD Referred By : , Acquired by : Clemencia CHU [facility] HISTORY PHYSICALon HISTORY PHYSICAL HNO ID: [id number] Author: NAIF ROY APRN.TECHNICAL SALES SUPPORT SPECIALIST, DNP Service: Cardiovascular Disease Author Type: Nurse Practitioner Type: H&P Filed: 10/15/2023 10:18 Note Text: UPDATED PROCEDURAL SEDATION HISTORY AND PHYSICAL EXAMINATION SERVICE DATE: 10/15/2023 SERVICE TIME: 10:10 AM PROCEDUREALIST: Surgeon(s) and Role: * Jesse Longo MD - Primary PHYSICAL EXAM MUST BE COMPLETED ON ADMISSION The History and Physical (completed in the past 30 days) has been reviewed and the patient has been examined. The contents accurately reflect the patient's condition with the following additions or revisions since the HANDP was completed. This HANDP can be found in the Electronic Medical Record. Examination indicates that the patient presents for: CARDIOVERSION EXTERNAL ELECTIVE ASA Class: ASA Class:: Patient with mild systemic disease No data found. AIRWAY: Airway Visualization of Uvula: Yes Mouth opening greater than 2 fingerbreadths: Yes Neck Full Range of Motion: Yes LUNGS: Lungs clear to auscultation, Good diaphragmatic excursion CARDIAC: irregular CAROTIDS: Without bruits LE PULSES: Right Leg- Palpable. Left Leg- Palpable History of TIA: No History of MO: No Diabetes: No History of Bleeding Issues: No SEDATION GOAL: Moderate DATA: Diagnostic tests reviewed for today's visit: Most recent EKG Most recent labs POC INR: CBC: Recent Labs 10/11/23 1457 WBC 10.29 RBC 4.93 HB 14.6 HCT 44.1 PLT 262 MCV 89.5 MCH 29.6 MPV 10.6 Coags: No results for input(s): PT , INR , APTT in the last 720 hours. BMP: Recent Labs 10/11/23 1457 NA 138 K 5.1 CHLOR 103 CO2 26 BUN 18 CREAT 0.71* GLUC 87 Provisional Diagnosis/Treatment Plan: CARDIOVERSION EXTERNAL ELECTIVE Assessment: Mr. Caty Kohli is a 63 year old male with h/o HTN, dyslipidemia, RA, BPH, DICK on CPAP, h/o paroxysmal atrial fibrillation with PVI 07/2022, now with persistent afib. Plan: Ordered Pre-op LABS and EKG reviewed and results evaluated. The medical history was reviewed and updated. Proceed with procedure - EKG today: atrial fibrillation, HR 90 bpm - labs 10/11/23: creatinine 0.17, K 5.1, mag 2.2, CBC normal I spent a total of 20 minutes on the date of the service which included preparing to see the patient, [id number] patient care, completing clinical documentation, obtaining and/or reviewing separately obtained history, performing a medically appropriate examination, counseling and educating the patient/family/caregi artemio, and ordering medications, tests, or procedures. SIGNATURE: Naif Roy APRN.TECHNICAL SALES SUPPORT SPECIALIST, DNP PATIENT NAME: Caty Kohli DATE: October 15, 2023 TIME: 10:10 AM PAGER: Normal [facility] NURSING PROGon 10-15-2023 NURSING PROG HNO ID: [id number] Author: TODD LEDBETTER RN Service: ? Author Type: Registered Nurse Type: Nursing Progress Note Filed: 10/15/2023 12:32 Note Text: 1102 Patient S/P cardioversion. Shocked x 2. Once at 200J then 360J. Converted to SR. Arousalable upon calling. Following commands. VSS. ECG complete. 1110 to bedside. PO started. 1130 Tolerating po well. 1155 Silvadene applied to front and back pad sites. DC instructions reviewed. Patient denies need to void. 1205 IV dc'd. Patient dressing without difficulty. Denies feeling dizzy or lightheaded. [address] [facility] via in stable condition. [facility] OPERATIVE NOon 10-15-2023 OPERATIVE NO HNO ID: [id number] Author: JESSE LONGO MD Service: Cardiovascular Medicine Author Type: Physician Type: Operative Report Filed: 10/15/2023 11:59 Note Text: PROCEDURE NOTE: CARDIOVERSION The risks, benefits, alternatives, and personnel discussed with patient or office machines sales representative who consents to the procedure. UNIVERSAL PROTOCOL / SAFETY CHECKLIST: Procedure to be performed: DC cardioversion. Sign in Communication: Completed. Time Out: Team Confirms the Correct Patient, Correct Procedure, Correct Site and Site Marking, Correct Position (if applicable). Time: 10:50am. Affirmation of Time Out: YES. Sign Out Discussion: Completed. Pre-operative diagnosis: persistent afib Post-operative diagnosis: successful Cardioversion for afib Procedure type: DC cardioversion Staff: Jesse Longo MD Brief History: 63M with persistent afib and prior ablation . Noted with recurrent afib and now presents for DC cardioversion. The patient was placed on a monitor and supplemental oxygen. Adjunct airway equipment, suction and other necessary items were prepared. The patient was sedated with Brevital. Following sedation patient was cardioverted at 360 with conversion to normal sinus rhythm. A post conversion EKG was completed. The patient tolerated the procedure well. Assessment: successful DC cardioversion for afib Plan/Recommendations: continue current meds Medication changes: none Appointment: as scheduled Jesse Longo MD October 15, 2023 11:57 AM [facility] CNPMable 10-14-2023 TIFFANIEN Telephone (VICK) CATY KOHLI ([id number]) 1960 M Anatoly Ut* Date Time Provider Department 10/14/23 LAYLA ROGER During your visit today, we recorded the following information about you: Shelley Ireland 10/14/2023 12:53 PM Signed ----- Message ----- From: Layla Roger PA-C Sent: 10/11/2023 3:12 PM EDT CVN next week --> either location but if at then request Dr Longo. See me post CVN 2'valente weeks afterwards Layla Roger PA-C [facility] [place] 10/14/2023 1:26 PM Signed Called and spoke to patient and scheduled his cardioversion with Dr Longo for tomorrow. 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 Follow up scheduled. Allergies As of Date: 10/14/2023 Noted Allergy Reaction PENICILLINS 03/20/2019 2 - Rash SULFA (SULFONAMIDE ANTIBIOTICS) 03/20/2019 7 - Swelling Date Reviewed: 10/11/2023 Reviewed by: Mary Santo LPN - Fully Assessed Reason for Visit: Procedure [88] Cmt: Cardioversion Prescriptions as of 10/14/2023 - metoprolol succinate ER (TOPROL XL) 50 mg 24 hr tablet Take 1 tablet by mouth daily at bedtime. - ezetimibe (ZETIA) 10 mg tablet Take 1 tablet by mouth once daily. - apixaban (ELIQUIS) 5 mg tab(s) Take 1 tablet by mouth two times a day. - nitroglycerin sublingual (NITROQUICK) 0.4 mg SL tablet Dissolve 1 tablet under the tongue every 5 minutes as needed for chest pain. If no pain relief call 911. - rosuvastatin (CRESTOR) 40 mg tablet take 1 tablet at bedtime - Cholecalciferol, Vitamin D3, 50 mcg (2,000 unit) cap Take 2,000 Units by mouth once daily. - Zinc 50 mg tab Take 1 tablet by mouth once daily. - benazepril (LOTENSIN) 20 mg tablet Take 20 mg by mouth once daily. - MEN'S MULTI-VITAMIN ORAL Take by mouth once daily. - Coenzyme Q10 200 mg cap Take 200 mg by mouth once daily. - glucosamine/chondr prieto A sod (OSTEO BI-FLEX ORAL) Take 2 tablets by mouth one time only. - S-Adenosylmethionine 400 mg tab Take 400 mg by mouth once daily. Problem List As Of Date 10/14/2023 Noted Resolved Essential hypertension [I10] 04/08/2018 Under observation for suspected coronary artery* Atrial fibrillation (HCC) [I48.91] Other hyperlipidemia [E78.49] Elevated TSH [R79.89] Pain in left knee [M25.562] 07/17/2021 Abnormal cardiovascular stress test [R94.39] 12/19/2021 Encounter Status:Closed by OLE BOCANEGRA on 10/14/23 Normal [facility] Basic metabolic 2000 panelon 10-11-2023 Anion gap [Moles/Vol] 9 mmol/L Normal 9-18 [facility] Comment on above: Order Comment: Speci men Type: BLOOD SPECIMEN Ordering Facility: [facility] Address: [address] [place] [address] Performed By: #### 1 9123-9, 46150-6 #### [facility] [place] [id number] [address] [place] [address] [place] Calcium [Mass/Vol] 9.2 mg/dL Normal 8.5-10.2 [facility] Comment on above: Order Comment: Maryi men Type: BLOOD SPECIMEN Ordering Facility: [facility] Address: [address] [place] [address] Performed By: #### 1 9123-9, 76647-8 #### [facility] CLIA [id number] [place] [address] [place] Chloride [Moles/Vol] 103 mmol/L Normal 97-105 [facility] Comment on above: Order Comment: Speci men Type: BLOOD SPECIMEN Ordering Facility: [facility] Address: [address] [place] [address] Performed By: #### 1 9123-9, 45234-4 #### [facility] CLIA [id number] [place] [address] [place] CO2 [Moles/Vol] 26 mmol/L Normal 22-30 [facility] Comment on above: Order Comment: Speci men Type: BLOOD SPECIMEN Ordering Facility: [facility] Address: [address] [place] [address] Performed By: #### 1 9123-9, 53706-5 #### [facility] CLIA [id number] [facility] [place] [address] [place] Creatinine [Mass/Vol] 0.71 mg/dL Low 0.73-1.22 [facility] Comment on above: Order Comment: [place] Type: BLOOD SPECIMEN Ordering Facility: [facility] Address: [address] [place] [address] Performed By: #### 1 9123-9, 17772-9 #### [facility] CLIA [id number] [address] [place] [address] [place] Creatinine and Glomerular filtration rate.predicted panel (S/P/Bld) 102 mL/min/1.73m??? Normal >=60 [facility] Comment on above: Order Comment: [facility] Type: BLOOD SPECIMEN Ordering Facility: [facility] Address: [address] [place] [address] Result Comment: June mated Glomerular Filtration Rate (eGFR) is calculated using the 2020 CKD-EPI creatinine equation. This equation utilizes serum creatinine, sex, and age as parameters. The creatinine assay has traceable calibration to isotope dilution-mass spectrometry. Refer to KDIGO guidelines for clinical interpretation. In patients with unstable renal function, e.g. those with acute kidney injury, the eGFR may not accurately reflect actual GFR. Performed By: #### 1 9123-9, 40357-6 #### [facility] CLIA [id number] [address] [place] [address] [place] Glucose [Mass/Vol] 87 mg/dL Normal 74-99 [facility] Comment on above: Order Comment: [facility] Type: BLOOD SPECIMEN Ordering Facility: [facility] Address: [address] [place] [address] Result Comment: The [place] Diabetes Association (ADA) provides guidance for cutoff values for fasting glucose and random glucose. The ADA defines fasting as no caloric intake for at least 8 hours. Fasting plasma glucose results between 100 to 125 mg/dL indicate increased risk for diabetes (prediabetes). Fasting plasma glucose results greater than or equal to 126 mg/dL meet the criteria for diagnosis of diabetes. In the absence of unequivocal hyperglycemia, results should be confirmed by repeat testing. In a patient with classic symptoms of hyperglycemia or hyperglycemic crisis, random plasma glucose results greater than or equal to 200 mg/dL meet the criteria for diagnosis of diabetes. Reference: Standards of Medical Care in Diabetes 2016, [place] Diabetes Association. Diabetes Care. 2016.39(Suppl 1). Performed By: #### 1 9123-9, 43107-7 #### [facility] CLIA [id number] [address] [place] [address] [place] Potassium [Moles/Vol] 5.1 mmol/L Normal 3.7-5.1 [facility] Comment on above: Order Comment: [place] Type: BLOOD SPECIMEN Ordering Facility: [facility] Address: [address] [place] [address] Performed By: #### 1 9123, 22166-6 #### [facility] CLIA [id number] [address] [place] [address] [place] Sodium [Moles/Vol] 138 mmol/L Normal 136-144 [facility] Comment on above: Order Comment: [place] Type: BLOOD SPECIMEN Ordering Facility: [facility] Address: [address] [place] [address] Performed By: #### 1 9123, 74437-6 #### [facility] CLIA [id number] [address] [place] [address] [place] Urea nitrogen [Mass/Vol] 18 mg/dL Normal 9-24 [facility] Comment on above: Order Comment: [place] Type: BLOOD SPECIMEN Ordering Facility: [facility] Address: [address] [place] [address] Performed By: #### 1 91239, 99856-9 #### [facility] CLIA [id number] [address] [place] [address] [place] CBC panel Auto (Bld)on 10-10 Erythrocyte distribution width (RBC) [Ratio] 12.9 % Normal 11.5-15.0 [facility] Comment on above: Order Comment: Speci men Type: BLOOD SPECIMEN Ordering Facility: [facility] Address: [address] [place] [address] Performed By: #### 5 8410-2 #### [facility] CLIA [id number] [address] [place] [address] [facility] Hematocrit (Bld) [Volume fraction] 44.1 % Normal 39.0-51.0 [facility] Comment on above: Order Comment: Speci men Type: BLOOD SPECIMEN Ordering Facility: [facility] Address: [address] [place] [address] Performed By: #### 5 8410-2 #### [facility] IA [id number] [address] [place] [address] [place] Hemoglobin (Bld) [Mass/Vol] 14.6 g/dL Normal 13.0-17.0 [facility] Comment on above: Order Comment: Speci men Type: BLOOD SPECIMEN Ordering Facility: [facility] Address: [address] [place] [address] Performed By: #### 5 8410-2 #### [facility] IA [id number] [address] [place] [address] [place] MCH (RBC) [Entitic mass] 29.6 pg Normal 26.0-34.0 [facility] Comment on above: Order Comment: Speci men Type: BLOOD SPECIMEN Ordering Facility: [facility] Address: [address] [place] [address] Performed By: #### 5 8410-2 #### [facility] IA [id number] [address] [place] [address] [place] MCHC (RBC) [Mass/Vol] 33.1 g/dL Normal 30.5-36.0 [facility] Comment on above: Order Comment: Speci men Type: BLOOD SPECIMEN Ordering Facility: [facility] Address: [address] [place] [address] Performed By: #### 5 8410-2 #### [facility] CLIA [id number] [facility] [place] [address] [place] MCV (RBC) [Entitic vol] 89.5 fL Normal 80.0-100.0 [facility] Comment on above: Order Comment: Speci men Type: BLOOD SPECIMEN Ordering Facility: [facility] Address: [address] [place] [address] Performed By: #### 5 8410-2 #### [facility] IA [id number] [address] [place] [address] [place] Nucleated RBC (Bld) [#/Vol] 10*3/uL Normal <0.01 [facility] Comment on above: Order Comment: Speci men Type: BLOOD SPECIMEN Ordering Facility: [facility] Address: [address] [place] [address] Performed By: #### 5 8410-2 #### [facility] [place] [id number] [place] [address] [place] Platelet mean volume (Bld) [Entitic vol] 10.6 fL Normal 9.0-12.7 [facility] l Comment on above: Order Comment: Speci men Type: BLOOD SPECIMEN Ordering Facility: [facility] Address: [address] [place] [address] Performed By: #### 5 8410-2 #### [facility] [place] [id number] [address] [facility] [place] [address] [place] Platelets (Bld) [#/Vol] 262 10*3/uL Normal 150-400 [facility] Comment on above: Order Comment: Speci men Type: BLOOD SPECIMEN Ordering Facility: [facility] Address: [address] [place] [address] Performed By: #### 5 8410-2 #### [facility] IA [id number] [address] [facility] [place] [address] [place] RBC (Bld) [#/Vol] 4.93 10*6/uL Normal 4.20-6.00 [facility] Comment on above: Order Comment: [place] Type: BLOOD SPECIMEN Ordering Facility: [facility] Address: [address] [place] [address] Performed By: #### 5 8410-2 #### [facility] CLIA [id number] [address] [place] [address] [place] WBC (Bld) [#/Vol] 10.29 10*3/uL Normal 3.70-11.00 [facility] Comment on above: Order Comment: Luh vivian Type: BLOOD SPECIMEN Ordering Facility: [facility] Address: [address] [place] [address] Performed By: #### 5 8410-2 #### [facility] CLIA [id number] [place] [address] [facility] CNOVon 10-11-2023 CNOV Office Visit (CAEPAV ) CATY KOHLI ([id number]) 1960 [place]* Date Time Provider Department 10/11/23 2:30 PM LAYLA ROGER CAEPDES During your visit today, we recorded the following information about you: Pulse Blood pressure Weight Height 109/minute 116/70 100.2 kg 1.88 m Layla Roger PA-C 10/11/2023 3:12 PM [facility] Mathis Department of Cardiovascular Medicine SECTION OF CARDIAC PACING and ELECTROPHYSIOLOGY OUTPATIENT VISIT DATE October 11, 2023 OUTPATIENT VISIT TYPE ESTABLISHED PRIMARY CARE PHYSICIAN: Tae Martinez (Tosha) [address] [place] [address] CHIEF COMPLAINT: Cardiology follow up HISTORY OF PRESENT ILLNESS: Mr. Kohli is a 63 year old male who presents today for follow-up visit. He is a patient of Dr Longo and Dr Garcia with history of persistent atrial fibrillation s/p PVI 07/2022, hypertension, dyslipidemia, RA, BPH, DICK (-CPAP). Was seen in July and was doing well. More recently he messaged the office regarding recurrence of atrial fibrillation. He is here for follow-up Here with his , reports AF started Saturday. HR's ranging 100-130 BPM Noticing increased fatigue Reports no missed doses of Eliquis. He is not managed on beta-leia; review shows he was previously on sotalol but that did not maintain sinus rhythm and he had some bradycardia with that over as well He denies chest pain, shortness of breath, orthopnea, cough, edema, palpitations, PND, lightheadedness or syncope. PAST CARDIAC HISTORY: See above PAST MEDICAL HISTORY Diagnosis Date Atrial fibrillation (HCC) BPH (benign prostatic hyperplasia) Elevated TSH Essential hypertension Meningitis spinal 1964 Osteoarthritis of both knees Other hyperlipidemia Rheumatoid arthritis (HCC) Under observation for suspected coronary artery disease PAST SURGICAL HISTORY Procedure Laterality Date ARTHROSCOPY KNEE DIAGNOSTIC W/WO SYNOVIAL BX SPX Right 2012 SHX CARDIAC RADIOFREQUENCY ABLATION 07/18/2022 PVI/PWI (Afib) TONSILLECTOMY HX SOCIAL HISTORY Social History Tobacco Use Smoking status: Never Smokeless tobacco: Never Vaping Use Vaping Use: Never used Substance Use Topics Alcohol use: Yes Comment: rare Drug use: Never FAMILY HISTORY Problem Relation Age of Onset Coronary Artery Disease Father 57 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 apixaban (ELIQUIS) 5 mg tab(s) Take 1 tablet by mouth two times a day. nitroglycerin sublingual (NITROQUICK) 0.4 mg SL tablet Dissolve 1 tablet under the tongue every 5 minutes as needed for chest pain. If no pain relief call 911. rosuvastatin (CRESTOR) 40 mg tablet take 1 tablet at bedtime Cholecalciferol, Vitamin D3, 50 mcg (2,000 unit) cap Take 2,000 Units by mouth once daily. Zinc 50 mg tab Take 1 tablet by mouth once daily. benazepril (LOTENSIN) 20 mg tablet Take 20 mg by mouth once daily. MEN'S MULTI-VITAMIN ORAL Take by mouth once daily. Coenzyme Q10 200 mg cap Take 200 mg by mouth once daily. glucosamine/chondr prieto A sod (OSTEO BI-FLEX ORAL) Take 2 tablets by mouth one time only. S-Adenosylmethionine 400 mg tab Take 400 mg by mouth once daily. REVIEW OF SYSTEMS: + Findings in bold GENERAL: Negative for: Weight loss or gain, Fever or Chills, Weakness and Sleep difficulties. HEENT: Negative for: Headache, Impaired Vision, Glasses, Hearing Impairment, Ringing in Ears, Nosebleeds, Poor Dental Care, Bleeding Gums and Dentures. NECK: Negative for: Swelling, Pain, Stiffness RESPIRATORY: Negative for: Cough, Blood in Sputum, Shortness of breath, Wheezing, Apnea GASTROINTESTINAL: Negative for: Trouble swallowing, Heartburn, Change in bowel habits, Blood in stool, Dark black stools MUSCULOSKELETAL: Negtive for: Muscle or joint pain, stiffness, Joint swelling NEUROLOGIC/PSYCHIATRI C: Negative for: Weakness, Paralysis, Numbness, Tingling, Tremor, Nervousness or anxiety, Depressed mood, Memory loss SKIN: Negative for: Rash, Itching HEMATOLOGICAL/LYMPHAT IC: Negative for: Easy bruising, Easy bleeding ENDOCRINE: Negative for: Heat or Cold Intolerance, Excessive Sweating, Frequent Urination, Frequent Thirst PHYSICAL EXAMINATION: BP 116/70 (BP Site: Left Arm, BP Position: Sitting, BP Cuff Size: Regular Adult) Pulse 109 Ht 188 cm (6' 2.02 ) Wt 100.2 kg (220 lb 14.4 oz) BMI 28.35 kg/m? General: Well appearing, in no acute distress, speaking in complete sentences. Neck: No jugular venous distention, no carotid bruits, carotids have a normal upstroke, no palpable thyromegaly. Lungs: Clear to auscultation bilaterally, no wheezi (more content not included)... Normal [facility] [id number] 10-11-2023 ECG01 Ventricular Rate : 109 BPM QRS Duration : 104 ms Q-T Interval : 344 ms QTC Calculation(Bazett) : 463 ms Calculated R [place] : -72 degrees Calculated T [place] : 52 degrees ATRIAL FIBRILLATION WITH RAPID VENTRICULAR RESPONSE LEFT ANTERIOR FASCICULAR BLOCK CANNOT EXCLUDE INFERIOR MYOCARDIAL INFARCTION (MASKED BY FASCICULAR BLOCK?) , AGE UNDETERMINED ABNORMAL ECG Confirmed by LELO VENCES MD ([id number]) on 10/14/2023 12:43:26 PM NAME : CATY KOHLI PID : [id number] : 1960 Gender : Male Race : ORD : Procedure Date : Oct 11 2023 14:17:35 Edit Date : Oct 14 2023 12:43:27 Diagnosis: ATRIAL FIBRILLATION WITH RAPID VENTRICULAR RESPONSE LEFT ANTERIOR FASCICULAR BLOCK CANNOT EXCLUDE INFERIOR MYOCARDIAL INFARCTION (MASKED BY FASCICULAR BLOCK?) , AGE UNDETERMINED ABNORMAL ECG Confirmed by LELO VENCES MD ([id number]) on 10/14/2023 12:43:26 PM Test Reason : Location : 192 : AVCRD Overread By : LELO VENCES MD Edited By : LELO VENCES MD Referred By : , Acquired by : , Normal [facility] Magnesium SerPl-mCncon 10-10 Magnesium [Mass/Vol] 2.2 mg/dL Normal 1.7-2.3 [facility] Comment on above: Order Comment: Speci men Type: BLOOD SPECIMEN Ordering Facility: [facility] Address: [address] [place] [address] Performed By: #### 1 9123-9, 81295-5 #### [facility] CLIA [id number] [place], [place] [id number] [place] [address] [facility] CNPMable 10-07-2023 CNPN Telephone (CAEPAV) CATY KOHLI ([id number]) 1960 [place]* Date Time Provider Department 10/07/23 JESSE LONGO CAEPAV During your visit today, we recorded the following information about you: Laura Leon, RN 10/07/2023 2:03 PM Signed Pt calling Dr Longo and stated that last evening pt started feeling that he is in Afib. Pt stated that he has his apple watch and it is telling him that he is in Afib with HR of 105 during this call (1:58pm). Pt denied CP, SOB, light headedness/ dizziness and blurry vision. Pt stated that he is just calling to give Dr Longo an update. Pt stated that he has been taking his medication. Last dose was this morning: apixaban (ELIQUIS) 5 mg tab(s) 180 tablet 3 05/17/2023 -- Sig: Take 1 tablet by mouth two times a day. Pt advised to please call 911/seek emergent treatment.for any emergent symptoms - such as chest pain, shortness of breath, distress, severe abdominal pain, severe lightheadedness/dizzi ness, other concerning symptoms.Pt verbalized understanding. Please call pt for further questions/ recommendations. Last OV: 08/08/23 Next OV: 02/13/24 Please do not send messages back to this triage nurse. Please route to your assigned pool for best patient care. Sravani Jimenez, RN 10/07/2023 2:24 PM Signed Spoke with patient. States he has been in Afib since last evening around 9pm. No symptoms at all, rate average 100. Has not checked his BP since. States he hasn't been in Afib for approx. 1 year. Aware of symptoms to go to emergency room. Will notify Dr. Longo of current epidose and condition. Follow up not scheduled until February with Dr. Longo. Johnna Victoria APRN.TIFFANIE 10/07/2023 3:11 PM Signed I reviewed the message since patient heart rate is 100 or less Recommendation: Schedule him for EP ROSE MARIE visit or rose marie visit, if none available then ECG to confirm the arrhythmia if out of rhythm then we can schedule for a cardioversion, if he has been compliant with apixaban in the past three weeks with no missed doses, if missed two or more doses in a row then needs a TANVI. thank you Johnna Victoria APRN.TECHNICAL SALES SUPPORT SPECIALIST Neftali Medinaa 10/10/2023 11:25 AM Signed Scheduled with Layla tomorrow in [place], pt aware. Allergies As of Date: 10/07/2023 Noted Allergy Reaction PENICILLINS 03/20/2019 2 - Rash SULFA (SULFONAMIDE ANTIBIOTICS) 03/20/2019 7 - Swelling Date Reviewed: 08/08/2023 Reviewed by: Soumya Hernandez MA - Fully Assessed Reason for Visit: A-fib [167] Primary Visit Diagnosis:Persistent atrial fibrillation (HCC) [I48.19] [I48.19] Prescriptions as of 10/10/2023 - ezetimibe (ZETIA) 10 mg tablet Take 1 tablet by mouth once daily. - apixaban (ELIQUIS) 5 mg tab(s) Take 1 tablet by mouth two times a day. - nitroglycerin sublingual (NITROQUICK) 0.4 mg SL tablet Dissolve 1 tablet under the tongue every 5 minutes as needed for chest pain. If no pain relief call 911. - rosuvastatin (CRESTOR) 40 mg tablet take 1 tablet at bedtime - Cholecalciferol, Vitamin D3, 50 mcg (2,000 unit) cap Take 2,000 Units by mouth once daily. - Zinc 50 mg tab Take 1 tablet by mouth once daily. - benazepril (LOTENSIN) 20 mg tablet Take 20 mg by mouth once daily. - MEN'S MULTI-VITAMIN ORAL Take by mouth once daily. - Coenzyme Q10 200 mg cap Take 200 mg by mouth once daily. - glucosamine/chondr prieto A sod (OSTEO BI-FLEX ORAL) Take 2 tablets by mouth one time only. - S-Adenosylmethionine 400 mg tab Take 400 mg by mouth once daily. Problem List As Of Date 10/07/2023 Noted Resolved Essential hypertension [I10] 04/08/2018 Under observation for suspected coronary artery* Atrial fibrillation (HCC) [I48.91] Other hyperlipidemia [E78.49] Elevated TSH [R79.89] Pain in left knee [M25.562] 07/17/2021 Abnormal cardiovascular stress test [R94.39] 12/19/2021 Encounter Status:Closed by LAURA LEON on 10/07/23 Normal [facility] CNOVon 08-08-2023 CNOV Office Visit (CAEPLN ) CATY KOHLI ([id number]) 1960 [place] Co* Date Time Provider Department 08/08/23 10:00 AM JESSE LONGO During your visit today, we recorded the following information about you: Pulse Blood pressure Weight 57/minute 122/70 99.5 kg Jsese Longo MD 08/08/2023 10:10 AM Signed [facility] SECTION OF REGIONAL CARDIOLOGY OUTPATIENT VISIT DATE August 08, 2023 OUTPATIENT VISIT TYPE ESTABLISHED PRIMARY CARE PHYSICIAN: Tae Martinez (Tosha) [address] [place] [address] CHIEF COMPLAINT: afib HISTORY OF PRESENT ILLNESS: Mr. Kohli is a 62 year old male patient of Dr Garcia with history of persistent atrial fibrillation (s/p PVI 07/2022, recurrence of AF in October, sotalol DC'ed AND amiodarone initiated, s/p DCCV, .Other past medical history includes hypertension, hyperlipidemia, RA, BPH, DICK (no CPAP). Was last seen in November 2022 in and had remained in sinus rhythm. IMPRESSION: Persistent afib: S/p PVI and DCCV during late blanking period. Remained in sinus rhythm. Off amiodarone. He is interested in discussing watchman procedure for alternative stroke prevention. He would like to discuss this in 6 months. F/u in 6 months. CAD: Stable. No new angina. PLAN AND RECOMMENDATIONS: Persistent afib: S/p PVI and DCCV during late blanking period. Remained in sinus rhythm. Off amiodarone. He is interested in discussing watchman procedure for alternative stroke prevention. He would like to discuss this in 6 months. F/u in 6 months. CAD: Stable. No new angina. PHYSICAL EXAMINATION: There were no vitals taken for this visit. HEENT: normocephalic, EOMI Heart: regular rhythm Lungs: clear to auscultation Abdomen: bowel sounds present Extremities: no edema Musculoskeletal: chest wall nontender Neurological: alert and oriented Psychiatric: appropriate and cooperative Skin: no rash, cellulitis or lesions appreciated CARDIOVASCULAR MEDICINE TESTING: I have personally reviewed ECG Last EKG Result Conclusion ECG COMPLETE Collected: 01/17/2023 8:35 AM (Final result) Impression: SINUS BRADYCARDIA LEFT AXIS DEVIATION ABNORMAL ECG Confirmed by NUSRAT LANDEROS, AJ W ([id number]) on 01/27/2023 1:04:28 PM PAST CARDIAC HISTORY: See below PAST MEDICAL HISTORY Diagnosis Date Atrial fibrillation (HCC) BPH (benign prostatic hyperplasia) Elevated TSH Essential hypertension Meningitis spinal 1964 Osteoarthritis of both knees Other hyperlipidemia Rheumatoid arthritis (HCC) Under observation for suspected coronary artery disease PAST SURGICAL HISTORY Procedure Laterality Date ARTHROSCOPY KNEE DIAGNOSTIC W/WO SYNOVIAL BX SPX Right 2013 SHX CARDIAC RADIOFREQUENCY ABLATION 07/18/2022 PVI/PWI (Afib) TONSILLECTOMY HX Social History Tobacco Use Smoking status: Never Smokeless tobacco: Never Vaping Use Vaping Use: Never used Substance Use Topics Alcohol use: Yes Comment: rare Drug use: Never FAMILY HISTORY Problem Relation Age of Onset Coronary Artery Disease Father 57 smoker; 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 Emphysema Paternal Grandfather ALLERGIES Allergen Reactions Penicillins Rash Sulfa (Sulfonamide * Swelling CURRENT MEDICATIONS: ezetimibe (ZETIA) 10 mg tablet Take 1 tablet by mouth once daily. apixaban (ELIQUIS) 5 mg tab(s) Take 1 tablet by mouth two times a day. nitroglycerin sublingual (NITROQUICK) 0.4 mg SL tablet Dissolve 1 tablet under the tongue every 5 minutes as needed for chest pain. If no pain relief call 911. rosuvastatin (CRESTOR) 40 mg tablet take 1 tablet at bedtime Cholecalciferol, Vitamin D3, 50 mcg (2,000 unit) cap Take 2,000 Units by mouth once daily. Zinc 50 mg tab Take 1 tablet by mouth once daily. benazepril (LOTENSIN) 20 mg tablet Take 20 mg by mouth once daily. MEN'S MULTI-VITAMIN ORAL Take by mouth once daily. Coenzyme Q10 200 mg cap Take 200 mg by mouth once daily. glucosamine/chondr prieto A sod (OSTEO BI-FLEX ORAL) Take 2 tablets by mouth one time only. S-Adenosylmethionine 400 mg tab Take 400 mg by mouth once daily. Allergies As of Date: 08/08/2023 Noted Allergy Reaction PENICILLINS 03/20/2019 2 - Rash SULFA (SULFONAMIDE ANTIBIOTICS) 03/20/2019 7 - Swelling Date Reviewed: 08/08/2023 Reviewed by: Soumya Hernandez MA - Fully Assessed Reason for Visit: Atrial Fibrillation [513] Primary Visit Diagnosis:Persistent atrial fibrillation (HCC) [I48.19] Order(s):ECG COMPLETE [ECG01] Order #: [id number] ECG COMPLETE [ECG01] Order #: [id number]. #:[id number]--QIEEm kg Prescriptions as of 08/08/2023 - ezetimibe (ZETIA) 10 mg tablet Take 1 tablet by mouth once daily. - apixaban (ELIQUIS) 5 mg tab(s) Take 1 tablet by mouth two times a day. - nitroglycerin sublingual (NITROQUICK) 0.4 mg SL tablet Dis (more content not included)... Normal [facility] ECG COMPLETEon 08-08-2023 ECG COMPLETE Ventricular Rate : 5 7 BPM Atrial Rate : 57 BPM P-R Interval : 176 ms QRS Duration : 108 ms Q-T Interval : 422 ms QTC Calculation(Bazett) : 410 ms Calculated P [place] : 62 degrees Calculated R [place] : -34 degrees Calculated T [place] : 26 degrees SINUS BRADYCARDIA LEFT AXIS DEVIATION ABNORMAL ECG Confirmed by MARJ ARIAS MD ([id number]) on 08/08/2023 1:08:59 PM NAME : CATY KOHLI PID : [id number] : 1960 Gender : Male Race : ORD : [id number] Procedure Date : Aug 08 2023 09:57:57 Edit Date : Aug 08 2023 13:08:59 Diagnosis: SINUS BRADYCARDIA LEFT AXIS DEVIATION ABNORMAL ECG Confirmed by MARJ ARIAS MD ([id number]) on 08/08/2023 1:08:59 PM Test Reason : I48.19 Persistent atrial fibrillation (HCC) Location : 145 : LOCARD Overread By : MARJ ARIAS MD Edited By : MARJ ARIAS MD Referred By : Donta Acquired by : wero, Clemencia [facility] Lipid 1996 panelon 3 Cholesterol [Mass/Vol] 126 mg/dL Normal <200 Cl [facility] Comment on above: Order Comment: Speci men Type: BLOOD SPECIMENOrdering Facility: [facility] Address: [address] [place] [address] Result Comment: <200 mg/dL, Desirable 200-239 mg/dL, Borderline high >239 mg/dL, High Performed By: #### 2 4331-1 ####[facility] [id number] [address] LABCLIA [id number] [place] [address] Cholesterol in HDL [Mass/Vol] 43 mg/dL Normal >39 [facility] Comment on above: Order Comment: Speci men Type: BLOOD SPECIMENOrdering Facility: [facility] Address: [address] [place] [address] Result Comment: 40-5 9 mg/dL, Acceptable >59 mg/dL, High: Negative risk factor for coronary heart disease <40 mg/dL, Low: Positive risk factor for coronary heart disease Performed By: #### 2 4331-1 ####[facility] [id number] [address] LABCLIA [id number] [place] [address] Cholesterol in LDL [Mass/Vol] 72 mg/dL Normal <100 [facility] Comment on above: Order Comment: Speci men Type: BLOOD SPECIMENOrdering Facility: [facility] Address: [address] [place] [address] Result Comment: <100 mg/dL, Optimal 100-129 mg/dL, Near optimal/above optimal 130-159 mg/dL, Borderline high 160-189 mg/dL, High >189 mg/dL, Very high Secondary prevention optimal LDL Cholesterol levels are recommended to be < 70 mg/dL Performed By: #### 2 4331-1 ####[facility] [id number] [address] LABCLIA [id number] [place] [address] Cholesterol in LDL/Cholesterol in HDL [Mass ratio] 1.67 {ratio} Normal <2.54 [facility] Comment on above: Order Comment: Speci men Type: BLOOD SPECIMENOrdering Facility: [facility] Address: [address] [place] [address] Result Comment: Justyn green: 1. National Cholesterol Education Program ATP III Guideline At-A-Glance Quick Desk Reference: National Heart, Lung, and Blood [facility]. National Institutes of Health. 2001: NIH Publication No. 01-3305. 2. An International Atherosclerosis Society position paper: global recommendations for the management of dyslipidemia: executive summary, Atherosclerosis. 2014: 232(2):410-413. Performed By: #### 2 4331-1 ####[facility] [id number] [address] [address] [facility]CLIA [id number] [place] [address] Cholesterol in VLDL [Mass/Vol] 11 mg/dL Normal <30 [facility] Comment on above: Order Comment: Speci men Type: BLOOD SPECIMENOrdering Facility: [facility] Address: [address] [place] [address] Performed By: #### 2 4331-1 ####[facility] [id number] [place] [id number] [facility]CLIA [id number] [place] [address] Cholesterol non HDL [Mass/Vol] 83 mg/dL Normal <130 [facility] Comment on above: Order Comment: Speci men Type: BLOOD SPECIMENOrdering Facility: [facility] Address: [address] [place] [address] Result Comment: <130 mg/dL, Optimal 130-159 mg/dL, Near optimal/above optimal 160-189 mg/dL, Borderline high 190-219 mg/dL, High >219 mg/dL, Very high Secondary prevention optimal non HDL Cholesterol levels are recommended to be <100 mg/dL Performed By: #### 2 4331-1 ####[facility] [id number] [address] [address] [facility]CLIA [id number] [place] [id number] Cholesterol.total/Chol esterol in HDL [Mass ratio] 2.93 {ratio} Normal <5.10 [facility] Comment on above: Order Comment: Speci men Type: BLOOD SPECIMENOrdering Facility: [facility] Address: [address] [place] [address] Performed By: #### 2 4331-1 ####[facility] [id number] [address] LABCLIA [id number] [place] [id number] FASTING TIME 12 hrs Normal [facility] Comment on above: Order Comment: Speci men Type: BLOOD SPECIMENOrdering Facility: [facility] Address: [address] [place] [address] Performed By: #### 2 4331-1 ####[facility] [id number] [address] LABCLIA [id number] [place] [id number] Triglyceride [Mass/Vol] 55 mg/dL Normal <150 [facility] Comment on above: Order Comment: Speci men Type: BLOOD SPECIMENOrdering Facility: [facility] Address: [address] [place] [address] Result Comment: <150 mg/dL, Normal 150-199 mg/dL, Borderline high 200-499 mg/dL, High >499 mg/dL, Very high Performed By: #### 2 4331-1 ####[facility] [id number] [address] LABCLIA [id number] [place] [address] OLVINon 05-17-2023 CNOV Office Visit (CARDAV ) CATY KOHLI ([id number]) 1960 Frances[place] Date Time Provider Department 05/17/23 9:00 AM CARLOS GARCIA During your visit today, we recorded the following information about you: Pulse Blood pressure Weight 57/minute 124/78 97.5 kg Carlos Garcia MD 05/17/2023 9:17 AM Addendum [facility] Mathis Department of Cardiovascular Medicine SECTION OF CARDIOLOGY OUTPATIENT VISIT DATE May 17 2023 OUTPATIENT VISIT TYPE ESTABLISHED CHIEF COMPLAINT: Cardiovascular follow-up HISTORY OF PRESENT ILLNESS: Mr. Kohli is a pleasant 62 year old male here for cardiovascular follow-up. In interim, No CP/sob/major bleeding/leg swelling. The following portions of the patient's history were reviewed and updated as appropriate, allergies, current medications, past medical, social, surgical, and family history and problem list. I have personally interviewed, confirmed and edited the above information if obtained by others. CURRENT MEDICATIONS: rosuvastatin (CRESTOR) 40 mg tablet take 1 tablet at bedtime Cholecalciferol, Vitamin D3, 50 mcg (2,000 unit) cap Take 2,000 Units by mouth once daily. Zinc 50 mg tab Take 1 tablet by mouth once daily. benazepril (LOTENSIN) 20 mg tablet Take 20 mg by mouth once daily. MEN'S MULTI-VITAMIN ORAL Take by mouth once daily. Coenzyme Q10 200 mg cap Take 200 mg by mouth once daily. glucosamine/chondr prieto A sod (OSTEO BI-FLEX ORAL) Take 2 tablets by mouth one time only. S-Adenosylmethionine 400 mg tab Take 400 mg by mouth once daily. apixaban (ELIQUIS) 5 mg tab(s) Take 1 tablet by mouth two times a day. nitroglycerin sublingual (NITROQUICK) 0.4 mg SL tablet Dissolve 1 tablet under the tongue every 5 minutes as needed for chest pain. If no pain relief call 911. Physical Exam BP 124/78 (BP Site: Left Arm, BP Position: Sitting, BP Cuff Size: Large Adult) Pulse (!) 57 Wt 97.5 kg (215 lb) SpO2 95% BMI 27.60 kg/m? Gen: alert, no acute distress, with HEENT: normocephalic, atraumatic, no rinorrhea, no congestion, normal hearing, EOMI, no eye discharge Heart: no murmurs, S1/S2+, regular rate and rhythm Lungs: no wheezing, rales, symmetric expansion, nonlabored Abdomen: soft, nontender, nondistended Musculoskeletal: no edema, nontender Neurological: no focal deficits, alert, oriented Psychatric: cooperative, appropriate Pertinent Diagnostics/Labs/Data reviewed (ECG and echo listed personally reviewed) and include: 12/19/21 Coronary angiogram: LVEDP 22, LM normal; LAD/Cx/RCA ectatic; mid-distal LAD 30-40% 11/28/21 CCTA: short LM no disesease, mLAD 70-90%, mCx 50-70%, dRCA <25%; ascending aorta 3.8cm 12/13/21 TTE: LVEF69%, normal RVSF/size, normal LA/RA size, 1+ TR, 1+ IA, mid ascending 3.9cm 01/19/2021 TTE: LVEF 55-60%, RVSP 35-45mmHg, severe biatrial enlargement, mod TR, RV moderately dilated, mild-mod MR, mild LVH, Pharmacologic MPI 01/19/2021: partial reversibility in inferior wall, fixed defect in apex, LVEF 49%, 05/18/22: LDL 75, TG 77, HDL 40, TCC 130 05/12/2021: LDL 107, HDL 44, TC 164, TG 65 12/2020: HDL 40, TG 42, LDL 86 Hgb 14.6 ECG 08/22/2021: Afib, left axis deviation ECG 05/10/2021: sinus bradycardia, left axis deviation, inferior and septal infarct pattern ECG 03/03/21 Afib, HR 92bpm, left axis deviation 03/17/2021: TANVI: LVEF 60% Assessment AND Plan Coronary Artery Disease Coronary angiogram performed after abnormal CCTA and NM Pharm stress MPI (asymptomatic prior) Chronic Atrial Fibrillation TANVI/DCCV 03/17/2021 (200J to 60bpm) then recurrence Sotalol and repeat DCCV 08/22/2021 PVI/PWI ablation 07/18/2022 DCCV for Afib 11/05/22 Other: HTN, HLD, sleep apnea (not on PAP therapy), OA, RA, BPH, hx of abnl TSH Impression: Initial visit on 03/03/2021: AF discussion, OAC discussion, CAD discussion. 10/2021: Extremely active otherwise. CCTA then subsequent coronary angiogram. 05/11/22: Doing well. Risk factor modification 05/18/23: Doing well. Repeat lipids Plan: Rosuvastatin 40, apixaban 5mg bid, benazepril 20mg every day Repeat Lipids Monitor Sx RTC 2 years, can repeat echocardiogram after that Thank you, CONTACT INFORMATION: Carlos Garcia M.D. Cardiovascular Medicine Staff [facility] Code [id number] [facility] [place] [address] Allergies As of Date: 05/17/2023 Noted Allergy Reaction PENICILLINS 03/20/2019 2 - Rash SULFA (SULFONAMIDE ANTIBIOTICS) 03/20/2019 7 - Swelling Date Reviewed: 05/17/2023 Reviewed by: Sravani Rouse RN - Fully Assessed Reason for Visit: Established Patient [175] Primary Visit Diagnosis:Coronary artery disease involving [place] heart without angina pectoris, unspecified vessel or lesion type [I25.10] Order(s):apixaban (ELIQUIS) 5 mg t (more content not included)... Normal [facility] CNOVon 01-17-2023 CNOV Office Visit (CAEPLN ) CATY KOHLI ([id number]) 1960 Frances[facility] Ledbetter Co* Date Time Provider Department 01/17/23 8:30 AM JESSE LONGO CAEPLN During your visit today, we recorded the following information about you: Pulse Blood pressure Weight 50/minute 126/82 97.1 kg Jesse Longo MD 01/17/2023 8:50 AM Signed [facility] SE[facility] OF REGIONAL CARDIOLOGY OUTPATIENT VISIT DATE January 17, 2023 OUTPATIENT VISIT TYPE ESTABLISHED PRIMARY CARE PHYSICIAN: Tae Martinez (Meek) [address] [place] [address] CHIEF COMPLAINT: Post PVI HISTORY OF PRESENT ILLNESS: Mr. Kohli is a 62 year old male patient of Dr Garcia with persistent afib , HTN and underwent PVI + PWI in 07/2022. Was on adjunct amiodarone following some early afib in the blanking period that required DCCV. Now remained in sinus rhythm and doing well. IMPRESSION: Persistent AF: S/pPVI + PWI. In SR. Will d/c amiodarone today. F/u in 6 months. PLAN AND RECOMMENDATIONS: Persistent AF: S/pPVI + PWI. In SR. Will d/c amiodarone today. F/u in 6 months. PHYSICAL EXAMINATION: BP 126/82 Pulse (!) 50 Wt 97.1 kg (214 lb) BMI 27.48 kg/m? HEENT: normocephalic, EOMI Heart: regular rhythm Lungs: clear to auscultation Abdomen: bowel sounds present Extremities: no edema Musculoskeletal: chest wall nontender Neurological: alert and oriented Psychiatric: appropriate and cooperative Skin: no rash, cellulitis or lesions appreciated CARDIOVASCULAR MEDICINE TESTING: I have personally reviewed ECG Last EKG Result Conclusion ECG COMPLETE Collected: 01/17/2023 8:35 AM (Preliminary result) Impression: SINUS BRADYCARDIA LEFT AXIS DEVIATION ABNORMAL ECG PAST CARDIAC HISTORY: See below PAST MEDICAL HISTORY Diagnosis Date Atrial fibrillation (HCC) BPH (benign prostatic hyperplasia) Elevated TSH Essential hypertension Meningitis spinal 1964 Osteoarthritis of both knees Other hyperlipidemia Rheumatoid arthritis (HCC) Under observation for suspected coronary artery disease PAST SURGICAL HISTORY Procedure Laterality Date ARTHROSCOPY KNEE DIAGNOSTIC W/WO SYNOVIAL BX SPX Right 2013 [facility] CARDIAC RADIOFREQUENCY ABLATION 07/18/2022 PVI/PWI (Afib) TONSILLECTOMY HX Social History Tobacco Use Smoking status: Never Smokeless tobacco: Never Vaping Use Vaping Use: Never used Substance Use Topics Alcohol use: Yes Comment: rare Drug use: Never FAMILY HISTORY Problem Relation Age of Onset Coronary Artery Disease Father 57 smoker; 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 Emphysema Paternal Grandfather ALLERGIES Allergen Reactions Penicillins Rash Sulfa (Sulfonamide * Swelling CURRENT MEDICATIONS: rosuvastatin (CRESTOR) 40 mg tabletTAKE 1 TABLET AT BEDTIMEDisp: 90 tabletRfl: 3 apixaban (ELIQUIS) 5 mg tab(s)Take 1 tablet by mouth twice daily.Disp: 60 tabletRfl: 5 Cholecalciferol, Vitamin D3, 50 mcg (2,000 unit) capTake 2,000 Units by mouth once daily.Disp: Rfl: Zinc 50 mg tabTake 1 tablet by mouth once daily.Disp: Rfl: nitroglycerin sublingual (NITROQUICK) 0.4 mg SL tabletDissolve 1 tablet under the tongue every 5 minutes as needed for chest pain. If no pain relief call 911.Disp: 25 tabletRfl: 3 benazepril (LOTENSIN) 20 mg tabletTake 20 mg by mouth once daily.Disp: Rfl: MEN'S MULTI-VITAMIN ORALTake by mouth once daily.Disp: Rfl: Coenzyme Q10 200 mg capTake 200 mg by mouth once daily.Disp: Rfl: glucosamine/chondr prieto A sod (OSTEO BI-FLEX ORAL)Take 2 tablets by mouth one time only.Disp: Rfl: S-Adenosylmethionine 400 mg tabTake 400 mg by mouth once daily.Disp: Rfl: Allergies As of Date: 01/17/2023 Noted Allergy Reaction PENICILLINS 03/20/2019 2 - Rash SULFA (SULFONAMIDE ANTIBIOTICS) 03/20/2019 7 - Swelling Date Reviewed: 01/17/2023 Reviewed by: Soumya Hernandez MA - Fully Assessed Reason for Visit: Follow Up [171] Primary Visit Diagnosis:Persistent atrial fibrillation (HCC) [I48.19] Order(s):ECG COMPLETE [ECG01] Order #: [id number] FUTURE ECG COMPLETE [ECG01] Order #: [id number]. #:[id number] kg Prescriptions as of 01/17/2023 - rosuvastatin (CRESTOR) 40 mg tablet TAKE 1 TABLET AT BEDTIME - apixaban (ELIQUIS) 5 mg tab(s) Take 1 tablet by mouth twice daily. - Cholecalciferol, Vitamin D3, 50 mcg (2,000 unit) cap Take 2,000 Units by mouth once daily. - Zinc 50 mg tab Take 1 tablet by mouth once daily. - nitroglycerin sublingual (NITROQUICK) 0.4 mg SL tablet Dissolve 1 tablet under the tongue every 5 minutes as needed for chest pain. If no pain relief call 911. - benazepril (LOTENSIN) 20 mg tablet Take 20 mg by mouth once daily. - MEN'S MULTI-VITAMIN ORAL Take by mouth once daily. - Coenzyme Q10 200 mg cap Take 200 mg by mouth once daily. - glucosamine/chondr prieto A sod (OSTEO BI-FLEX ORAL) (more content not included)... Normal [facility] ECG COMPLETEon 01-17-2023 ECG COMPLETE Ventricular Rate : 5 1 BPM Atrial Rate : 51 BPM P-R Interval : 176 ms QRS Duration : 110 ms Q-T Interval : 488 ms QTC Calculation(Bazett) : 449 ms Calculated P [place] : 35 degrees Calculated R [place] : -35 degrees Calculated T [place] : 23 degrees SINUS BRADYCARDIA LEFT AXIS DEVIATION ABNORMAL ECG Confirmed by AJ BROOKS MD ([id number]) on 01/27/2023 1:04:28 PM NAME : CATY KOHLI PID : [id number] : 1960 Gender : Male Race : ORD : [id number] Procedure Date : Jan 17 2023 08:35:40 Edit Date : Jan 27 2023 13:07:14 Diagnosis: SINUS BRADYCARDIA LEFT AXIS DEVIATION ABNORMAL ECG Confirmed by AJ BROOKS MD ([id number]) on 01/27/2023 1:04:28 PM Test Reason : Location : 145 : [facility] Overread By : AJ BROOKS MD Edited By : AJ BROOKS MD Referred By : JESSE LONGO Acquired by : Clemencia conteh [facility] ECG COMPLETEon 11-14-2022 Atrial Rate 65 BPM [facility] Calculated P [place] 5 degrees [facility] Calculated R [place] -54 degrees [facility] Calculated T [place] 4 degrees [facility] P-R Interval 166 ms [facility] QRS Duration 100 ms [facility] QT Interval 432 ms [facility] QTC Calculation (Bazett) 449 ms [facility] Ventricular Rate 65 BPM [facility] METHYLMALONIC ACID (MMA)on 0 03-22-2022 Methylmalonic Acid, Serum 138 nmol/L Normal 0-378 [facility] Comment on above: Performed By: #### M JINNY2 #### [facility] [address] [address] [address] Sunil Claudio CBC AUTO DIFFon 03-16-2022 BASO # 0.1 103/ul Normal 0.0-0.1 [facility] Comment on above: Performed By: #### C BC #### [facility] [address] [address] [address] Sunil Claudio Basophils/100 WBC (Bld) 0.7 % Normal 0.2-2.0 [facility] Comment on above: Performed By: #### C BC #### [facility] [address] [address] [address] Sunil Claudio EO # 0.4 103/ul Normal 0.0-0.7 [facility] Comment on above: Performed By: #### C BC #### [facility] [address] [place] [address] Dr. Sunil Claudio Eosinophils/100 WBC (Bld) 4.3 % Normal 0.9-7.0 [facility] Comment on above: Performed By: #### C BC #### [facility] [address] [address] [address] Sunil Claudio Erythrocyte distribution width (RBC) [Ratio] 13.2 % Normal 11.0-15.0 [facility] Comment on above: Performed By: #### C BC #### [facility] [address] [place] [address] Dr. Sunil Claudio Hematocrit (Bld) [Volume fraction] 40.8 % Critically low 42.0-54.0 [facility] Comment on above: Performed By: #### C BC #### [facility] [address] [address] [address] Sunil Claudio Hemoglobin (Bld) [Mass/Vol] 13.4 g/dL Critically low 14.0-18.0 [facility] Comment on above: Performed By: #### C BC #### [facility] [address] [address] [address] Sunil Claudio IG # 0.03 10e3/ul Normal 0.00-0.03 [facility] Comment on above: Performed By: #### C BC #### [facility] [address] [place] [address] Dr. Sunil Claudio IG % 0.3 % Normal 0.0-0.5 [facility] Comment on above: Performed By: #### C BC #### [facility] [address] [place] [address] Dr. Sunil Claudio LYMPH # 1.7 103/ul Normal 1.2-3.8 [facility] Comment on above: Performed By: #### C BC #### [facility] [address] [place] [address] Dr. Sunil Claudio Lymphocytes/100 WBC (Bld) 17.8 % Critically low 20.5-60.0 [facility] Comment on above: Performed By: #### C BC #### [facility] [address] [place] [address] Dr. Sunil Claudio MANUAL DIFF REQ NO Normal [facility] Comment on above: Performed By: #### C BC #### [facility] [address] [place] [address] Dr. Sunil Claudio MCH (RBC) [Entitic mass] 29.6 pg Normal 25.9-34.0 [facility] Comment on above: Performed By: #### C BC #### [facility] [address] [place] [address] Dr. Sunil Claudio MCHC (RBC) [Mass/Vol] 32.8 g/dL Normal 29.9-35.2 [facility] Comment on above: Performed By: #### C BC #### [facility] [address] [place] [address] Dr. Sunil Claudio MCV (RBC) [Entitic vol] 90.3 fL Normal 80.0-94.0 [facility] Comment on above: Performed By: #### C BC #### [facility] [address] [place] [address] Dr. Sunil Claudio MONO # 0.8 103/ul Normal 0.3-0.8 [facility] Comment on above: Performed By: #### C BC #### [facility] [address] [address] [address] Sunil Claudio Monocytes/100 WBC (Bld) 8.6 % Normal 1.7-12.0 [facility] Comment on above: Performed By: #### C BC #### [facility] [address] [address] [address] Sunil Claudio NEUT # 6.7 103/ul Critically high 1.4-6.5 [facility] Comment on above: Performed By: #### C BC #### [facility] [address] [place] [address] Dr. Sunil Claudio Neutrophils/100 WBC (Bld) 68.3 % Normal 43.0-75.0 [facility] Comment on above: Performed By: #### C BC #### [facility] [address] [place] [address] Dr. Sunil Claudio Platelet mean volume (Bld) [Entitic vol] 10.1 fL Normal 9.5-13.5 [facility] Comment on above: Performed By: #### C BC #### [facility] [address] [place] [address] Dr. Sunil Claudio PLT 240 103/ul Normal 150-450 [facility] Comment on above: Performed By: #### C BC #### [facility] [address] [place] [address] Dr. Sunil Claudio RBC 4.52 106/ul Critically low 4.70-6.10 [facility] Comment on above: Performed By: #### C BC #### [facility] [address] [place] [address] Dr. Sunil Claudio WBC 9.8 103/ul Normal 4.0-11.0 [facility] Comment on above: Performed By: #### C BC #### [facility] [address] [place] [address] Dr. Sunil Claudio FERRITINon 03-16-2022 Ferritin [Mass/Vol] 103.0 ng/mL Normal 26.0-388.0 [facility] Comment on above: Performed By: #### F ETIBC, B12FOL, FERR #### [facility] [address] [place] [address] Dr. Sunil Claudio IRON AND TIBCon 03-16-2022 % SATURATION 27.3 % Normal [facility] Comment on above: Performed By: #### F ETIBC, B12FOL, FERR #### [facility] [address] [place] [address] Dr. Sunil Claudio Iron [Mass/Vol] 89.0 ug/dL Normal 65.0-175.0 [facility] Comment on above: Performed By: #### F ETIBC, B12FOL, FERR #### [facility] [address] [place] [address] Dr. Sunil Claudio TIBC DIRECT 326.0 ug/dL Normal 250.0-450.0 [facility] Comment on above: Performed By: #### F ETIBC, B12FOL, FERR #### [facility] [address] [place] [address] Dr. Sunil Claudio VIT B12 AND FOLATEon 022 Cobalamin (Vitamin B12) [Mass/Vol] 592.0 pg/mL Normal 193.0-986.0 [facility] Comment on above: Performed By: #### F ETIBC, B12FOL, FERR #### [facility] [address] [place] [address] Dr. Sunil Claudio FOLATE 20.40 ng/mL Normal 8.60-58.90 [facility] Comment on above: Performed By: #### F ETIBC, B12FOL, FERR #### [facility] [address] [place] [address] Dr. Sunil Claudio US KNEE-INJECTION LT (POC) O RI USE ONLYon 03-06-2022 [facility] US KNEE-INJECTION RT (POC) O RI USE ONLYon 03-06-2022 [facility] ECHOon 12-13-2021 [facility] CBC AUTO DIFFon 11-29-2021 BASO # 0.1 103/ul Normal 0.0-0.1 [facility] Comment on above: Performed By: #### C BC #### [facility] [address] [place] [address] Dr. Sunil Claudio Basophils/100 WBC (Bld) 0.7 % Normal 0.2-2.0 [facility] Comment on above: Performed By: #### C BC #### [facility] [address] [place] [address] Dr. Sunil Claudio EO # 0.4 103/ul Normal 0.0-0.7 [facility] Comment on above: Performed By: #### C BC #### [facility] [address] [place] [address] Dr. Sunil Claudio Eosinophils/100 WBC (Bld) 4.4 % Normal 0.9-7.0 [facility] Comment on above: Performed By: #### C BC #### [facility] [address] [place] [address] Dr. Sunil Claudio Erythrocyte distribution width (RBC) [Ratio] 12.9 % Normal 11.0-15.0 [facility] Comment on above: Performed By: #### C BC #### [facility] [address] [place] [address] Dr. Sunil Claudio Hematocrit (Bld) [Volume fraction] 41.6 % Critically low 42.0-54.0 [facility] Comment on above: Performed By: #### C BC #### [facility] [address] [place] [address] Dr. Sunil Claudio Hemoglobin (Bld) [Mass/Vol] 13.7 g/dL Critically low 14.0-18.0 [facility] Comment on above: Performed By: #### C BC #### [facility] [address] [place] [address] Dr. Sunil Claudio IG # 0.03 10e3/ul Normal 0.00-0.03 [facility] Comment on above: Performed By: #### C BC #### [facility] [address] [place] [address] Dr. Sunil Claudio IG % 0.4 % Normal 0.0-0.5 [facility] Comment on above: Performed By: #### C BC #### [facility] [address] [place] [address] Dr. Sunil Claudio LYMPH # 2.2 103/ul Normal 1.2-3.8 [facility] Comment on above: Performed By: #### C BC #### [facility] [address] [place] [address] Dr. Sunil Claudio Lymphocytes/100 WBC (Bld) 25.7 % Normal 20.5-60.0 [facility] Comment on above: Performed By: #### C BC #### [facility] [address] [place] [address] Dr. Sunil lCaudio MANUAL DIFF REQ NO Normal [facility] Comment on above: Performed By: #### C BC #### [facility] [address] [place] [address] Dr. Sunil Claudio MCH (RBC) [Entitic mass] 29.7 pg Normal 25.9-34.0 [facility] Comment on above: Performed By: #### C BC #### [facility] [address] [place] [address] Dr. Sunil Claudio MCHC (RBC) [Mass/Vol] 32.9 g/dL Normal 29.9-35.2 [facility] Comment on above: Performed By: #### C BC #### [facility] [address] [place] [address] Dr. Sunil Claudio MCV (RBC) [Entitic vol] 90.2 fL Normal 80.0-94.0 [facility] Comment on above: Performed By: #### C BC #### [facility] [address] [place] [address] Dr. Sunil Claudio MONO # 0.8 103/ul Normal 0.3-0.8 [facility] Comment on above: Performed By: #### C BC #### [facility] [address] [place] [address] Dr. Sunil Claudio Monocytes/100 WBC (Bld) 9.1 % Normal 1.7-12.0 [facility] Comment on above: Performed By: #### C BC #### [facility] [address] [place] [address] Dr. Sunil Claudio NEUT # 5.0 103/ul Normal 1.4-6.5 [facility] Comment on above: Performed By: #### C BC #### [facility] [address] [address] [address] Sunil Claudio Neutrophils/100 WBC (Bld) 59.7 % Normal 43.0-75.0 [facility] Comment on above: Performed By: #### C BC #### [facility] [address] [address] [address] Sunil Claudio Platelet mean volume (Bld) [Entitic vol] 9.9 fL Normal 9.5-13.5 [facility] Comment on above: Performed By: #### C BC #### [facility] [address] [place] [address] Dr. Sunil Claudio PLT 258 103/ul Normal 150-450 [facility] Comment on above: Performed By: #### C BC #### [facility] [address] [address] [address] Sunil Claudio RBC 4.61 106/ul Critically low 4.70-6.10 [facility] Comment on above: Performed By: #### C BC #### [facility] [address] [place] [address] Dr. Sunil Claudio WBC 8.4 103/ul Normal 4.0-11.0 [facility] Comment on above: Performed By: #### C BC #### [facility] [address] [place] [address] Dr. Sunil Claudio CREATININE, BLOOD (POC)on Creatinine [Mass/Vol] 0.70 mg/dL 0.7 - 1.4 mg/dL [facility] GFR/1.73 sq M.predicted among non-blacks MDRD (S/P/Bld) [Vol rate/Area] mL/min/{1.73_m2} [facility] CTA CORONARY W IVCONon 11-28 [facility] CBC Without Differentialon 0 12-24-2020 Erythrocyte distribution width (RBC) [Ratio] 13.1 % Normal 12.0-14.8 [facility] Comment on above: Performed By: #### O UTREACH CMP, OUTREACH VITD, PSA OUTREACH, OUTREACH LIPID, CBCNOOUTREACH #### [address] Hematocrit (Bld) [Volume fraction] 42.3 % Normal 38.8-50.0 [facility] Comment on above: Performed By: #### O UTREACH CMP, OUTREACH VITD, PSA OUTREACH, OUTREACH LIPID, CBCNOOUTREACH #### [address] Hemoglobin (Bld) [Mass/Vol] 14.6 g/dL Normal 13.0-17.0 [facility] Comment on above: Performed By: #### O UTREACH CMP, OUTREACH VITD, PSA OUTREACH, OUTREACH LIPID, CBCNOOUTREACH #### [address] MCH (RBC) [Entitic mass] 31.2 pg Normal 27.5-35.2 [facility] Comment on above: Performed By: #### O UTREACH CMP, OUTREACH VITD, PSA OUTREACH, OUTREACH LIPID, CBCNOOUTREACH #### [address] MCV (RBC) [Entitic vol] 90.4 fL Normal 83.5-101 [facility] Comment on above: Performed By: #### O UTREACH CMP, OUTREACH VITD, PSA OUTREACH, OUTREACH LIPID, CBCNOOUTREACH #### [address] Mean Corpuscular HGB Conc 34.6 g/dL Normal 32.5-35.6 [facility] Comment on above: Performed By: #### O UTREACH CMP, OUTREACH VITD, PSA OUTREACH, OUTREACH LIPID, CBCNOOUTREACH #### [address] Platelet mean volume (Bld) [Entitic vol] 9.9 fL Normal 6.6-10.1 [facility] Comment on above: Result Comment: PERF ORMED BY: [place] [address] PATHOLOGIST [employer] REPRESENTATIVE BEAU STAHL M.D. Performed By: #### O UTREACH CMP, OUTREACH VITD, PSA OUTREACH, OUTREACH LIPID, CBCNOOUTREACH #### [facility] [address] Platelets (Bld) [#/Vol] 239 10*3/uL Normal 150-450 [facility] Comment on above: Performed By: #### O UTREACH CMP, OUTREACH VITD, PSA OUTREACH, OUTREACH LIPID, CBCNOOUTREACH #### [facility] [address] RBC (Bld) [#/Vol] 4.67 10*6/uL Normal 3.90-5.60 [facility] Comment on above: Performed By: #### O UTREACH CMP, OUTREACH VITD, PSA OUTREACH, OUTREACH LIPID, CBCNOOUTREACH #### [facility] [address] [place] [address] WBC (Bld) [#/Vol] 8.6 10*3/uL Normal 4.1-10.5 [facility] Comment on above: Performed By: #### O UTREACH CMP, OUTREACH VITD, PSA OUTREACH, OUTREACH LIPID, CBCNOOUTREACH #### [facility] [address] [place] [address] CMP Outreachon 12-24-2020 Albumin [Mass/Vol] 3.6 g/dL Normal 3.2-5.5 [facility] Comment on above: Performed By: #### O UTREACH CMP, OUTREACH VITD, PSA OUTREACH, OUTREACH LIPID, CBCNOOUTREACH #### [facility] [address] ALP [Catalytic activity/Vol] 65 U/L Normal 32-92 [facility] Comment on above: Performed By: #### O UTREACH CMP, OUTREACH VITD, PSA OUTREACH, OUTREACH LIPID, CBCNOOUTREACH #### [address] ALT [Catalytic activity/Vol] 21 U/L Normal 10-60 [facility] Comment on above: Performed By: #### O UTREACH CMP, OUTREACH VITD, PSA OUTREACH, OUTREACH LIPID, CBCNOOUTREACH #### [facility] [address] [place] [address] [place] AST [Catalytic activity/Vol] 23 U/L Normal 10-42 [facility] Comment on above: Performed By: #### O UTREACH CMP, OUTREACH VITD, PSA OUTREACH, OUTREACH LIPID, CBCNOOUTREACH #### [facility] [address] [place] [address] Bilirubin [Mass/Vol] 0.7 mg/dL Normal 0.3-1.2 [facility] Comment on above: Performed By: #### O UTREACH CMP, OUTREACH VITD, PSA OUTREACH, OUTREACH LIPID, CBCNOOUTREACH #### [facility] [address] [place] [address] [place] Calcium [Mass/Vol] 8.7 mg/dL Normal 8.2-10.2 [facility] Comment on above: Performed By: #### O UTREACH CMP, OUTREACH VITD, PSA OUTREACH, OUTREACH LIPID, CBCNOOUTREACH #### [facility] [address] [place] [address] [place] Chloride [Moles/Vol] 106 mmol/L Normal 95-114 [facility] Comment on above: Performed By: #### O UTREACH CMP, OUTREACH VITD, PSA OUTREACH, OUTREACH LIPID, CBCNOOUTREACH #### [facility] [address] [place] [address] [place] CO2 [Moles/Vol] 21.4 mmol/L Low 22.0-30.0 [facility] Comment on above: Performed By: #### O UTREACH CMP, OUTREACH VITD, PSA OUTREACH, OUTREACH LIPID, CBCNOOUTREACH #### [facility] [address] [place] [address] [place] Creatinine [Mass/Vol] 0.64 mg/dL Normal 0.64-1.27 [facility] Comment on above: Performed By: #### O UTREACH CMP, OUTREACH VITD, PSA OUTREACH, OUTREACH LIPID, CBCNOOUTREACH #### [facility] [address] [place] [address] [place] Estimated GFR ( Mansi > 60 Normal [facility] Comment on above: Result Comment: GFR estimated reference range: According to KDOQI guidelines, <60 ml/min/1.73m2 is sufficient to diagnose a patient with chronic kidney disease. Performed By: #### O UTREACH CMP, OUTREACH VITD, PSA OUTREACH, OUTREACH LIPID, CBCNOOUTREACH #### [facility] [address] [place] [address] [place] Estimated GFR (Non- Am > 60 Normal [facility] Comment on above: Performed By: #### O UTREACH CMP, OUTREACH VITD, PSA OUTREACH, OUTREACH LIPID, CBCNOOUTREACH #### [facility] [address] [place] [address] [place] Glucose [Mass/Vol] 90 mg/dL Normal 70-100 [facility] Comment on above: Result Comment: [facility] Glucose Reference Range is dependent on time and content of last meal. Glucose of more than 200 mg/dL in a nonstressed, ambulatory subject supports the diagnosis of Diabetes Mellitus. ADA recommended reference range Performed By: #### O UTREACH CMP, OUTREACH VITD, PSA OUTREACH, OUTREACH LIPID, CBCNOOUTREACH #### [facility] [address] [place] [address] [place] Potassium [Moles/Vol] 4.4 mmol/L Normal 3.5-5.1 [facility] Comment on above: Performed By: #### O UTREACH CMP, OUTREACH VITD, PSA OUTREACH, OUTREACH LIPID, CBCNOOUTREACH #### [facility] [address] [place] [address] [place] Protein [Mass/Vol] 6.8 g/dL Normal 6.1-7.9 [facility] Comment on above: Performed By: #### O UTREACH CMP, OUTREACH VITD, PSA OUTREACH, OUTREACH LIPID, CBCNOOUTREACH #### [facility] [address] [place], [place] [id number] [place] Sodium [Moles/Vol] 137 mmol/L Normal 136-146 [facility] Comment on above: Performed By: #### O UTREACH CMP, OUTREACH VITD, PSA OUTREACH, OUTREACH LIPID, CBCNOOUTREACH #### [facility] [address] [place] [address] [place] Urea nitrogen [Mass/Vol] 14 mg/dL Normal 9-23 [facility] Comment on above: Performed By: #### O UTREACH CMP, OUTREACH VITD, PSA OUTREACH, OUTREACH LIPID, CBCNOOUTREACH #### [facility] [address] [place] [id number] [place] Lipid Profile Outreachon Cholesterol [Mass/Vol] 134 mg/dL Low 140-200 [facility] Comment on above: Result Comment: Chol less than 200 mg/dl low risk Chol 201-239 mg/dl borderline risk Chol 240 mg/dl and greater high risk Performed By: #### O UTREACH CMP, OUTREACH VITD, PSA OUTREACH, OUTREACH LIPID, CBCNOOUTREACH #### [facility] [address] [place] [address] [place] Cholesterol in HDL [Mass/Vol] 40 mg/dL Normal 29-71 [facility] Comment on above: Result Comment: HDL CHOL ATP-III CLASSIFICATION Cardiovascular Risk HDL > or equal to 60 mg/dL LOW HDL < 40 mg/dL HIGH Performed By: #### O UTREACH CMP, OUTREACH VITD, PSA OUTREACH, OUTREACH LIPID, CBCNOOUTREACH #### [facility] [address] [place] [id number] [facility] Cholesterol.total/Chol esterol in HDL [Mass ratio] 3.4 {ratio} Normal <5.0 [facility] Comment on above: Performed By: #### O UTREACH CMP, OUTREACH VITD, PSA OUTREACH, OUTREACH LIPID, CBCNOOUTREACH #### [facility] [address] [place] [id number] [place] LDL Cholesterol,Calculated 86 mg/dL Normal 0-100 [facility] Comment on above: Result Comment: LDL ATP III CLASSIFICATION LDL less than 100 mg/dL Optimal LDL 100-129 mg/dL Near or above optimal LDL 130-159 mg/dL Borderline high LDL 160-189 mg/dL High LDL greater than 189 mg/dL Very high Performed By: #### O UTREACH CMP, OUTREACH VITD, PSA OUTREACH, OUTREACH LIPID, CBCNOOUTREACH #### [facility] [address] Triglyceride w/Reflex 42 mg/dL Normal 35-149 [facility] Comment on above: Result Comment: TRIG ATP III CLASSIFICATION TRIG less than 150 mg/dL Normal TRIG 150-199 mg/dL Borderline high TRIG 200-500 mg/dL High TRIG greater than 500 mg/dL Very high Standard traceable to the Center for Disease Conrtrol and Prevention (CDC) test method. Performed By: #### O UTREACH CMP, OUTREACH VITD, PSA OUTREACH, OUTREACH LIPID, CBCNOOUTREACH #### [facility] [address] VLDL CHOLESTEROL 8 mg/dL Normal [facility] Comment on above: Performed By: #### O UTREACH CMP, OUTREACH VITD, PSA OUTREACH, OUTREACH LIPID, CBCNOOUTREACH #### [address] PSA Total Community Outreach on 12-24-2020 PSA Total Community Outreach 0.580 ng/mL Normal 0.000-4.000 [facility] Comment on above: Result Comment: PERF ORMED BY: [address] [place] [address] PATHOLOGIST OCEAN IMPORT REPRESENTATIVE BEAU STAHL M.D. Performed By: #### O UTREACH CMP, OUTREACH VITD, PSA OUTREACH, OUTREACH LIPID, CBCNOOUTREACH #### [address] Vitamin D 25 Hydroxy Totalon 12-24-2020 Vitamin D 25 Hydroxy Total 37.8 ng/mL Normal 30-100 [facility] Comment on above: Result Comment: LEVI MIN D STATUS 25(OH)VITAMIN D RANGE (ng/mL) Deficient <20 Insufficient 20 to <30 Sufficient 30 to 100 Reference: Gerardo CRUZ,Dontrell GREY, Itzel OBRIEN, et al. Evaluation,treatment, and prevention of vitamin D deficiency; an Endocrine Society clinical practice guideline. JCEM. 2010; 96(7):1911-30. PERFORMED BY: [address] [place] [address] PATHOLOGIST OCEAN IMPORT REPRESENTATIVE BEAU STAHL M.D. Performed By: #### O UTRMIKA CMP, OUTREACH VITD, PSA OUTREACH, OUTREACH LIPID, CBCNOOUTREACH #### [facility] [address] [place] [id number] [facility] Coding Summary.on 01-21-2020 Coding Summary. CODING DATE: 01/21/2020 FINAL [facility] STATUS: Home (Routine DC) PAYOR: [facility] [place] ADMIT DX: REASON FOR VISIT DX: Z11.59 Encounter for screening for other viral diseases FINAL DX: PRINCIPAL: Z01.84 Encounter for antibody response examination SECONDARY: Z11.59 Encounter for screening for other viral diseases PYMT PROC APC STAT DESCRIPTION DOCTOR NAME DATE NOTE: The code number assigned matches the documented diagnosis and / or procedure in the patient's chart. However, the narrative phrase printed from the coding software may appear abbreviated, or result in slightly different terminology. Coded By: Rasheeda Machado Date Saved: 01/21/2020 03:18 am Normal [facility] Physician Orderon 01-08-2020 Physician Order [id number]. 00CD:127 Normal [facility] Large Joint Arthro/Inj: bila teral knee joints [facility] Vital Signs Date Time Vital Sign Value Performing Clinician Facility 11-08-2023 16:10-0400 Body height 188 cm Layla CALIXPriviaMeek Work Phone: [facility] 11-08-2023 16:10-0400 Body mass index (BMI) [Ratio] 28.1 kg/m2 Layla Roger PA-C Work Phone: [facility] 11-08-2023 16:10-0400 Body weight 99.3 kg Layla Roger PA-C Work Phone: [facility] 11-08-2023 16:10-0400 Diastolic blood pressure 80 mm[Hg] Layla Roger PA-C Work Phone: [facility] 11-08-2023 16:10-0400 Heart rate 84 /min Layla Roger PA-C Work Phone: [facility] 11-08-2023 16:10-0400 Systolic blood pressure 132 mm[Hg] Layla Roger PA-C Work Phone: [facility] 06-05-2023 09:30-0500 Body height 187.96 cm Tae Ball Other [facility] Other 06-05-2023 09:30-0500 Body mass index (BMI) [Ratio] 27.45 kg/m2 Tae Ball Other [facility] Other 06-05-2023 09:30-0500 Body weight 96.98 kg Tae Ball Other [facility] Other 06-05-2023 09:30-0500 Diastolic blood pressure 82 mm[Hg] Tae Ball Other [facility] Other 06-05-2023 09:30-0500 Systolic blood pressure 151 mm[Hg] Tae Ball Other [facility] Other 05-17-2023 09:01-0400 Body weight 97.52 kg Carlos Garcia MD Work Phone: [facility] 05-17-2023 09:01-0400 Diastolic blood pressure 78 mm[Hg] Carlos Garcia MD Work Phone: [facility] 05-17-2023 09:01-0400 Heart rate 57 /min Carlos Garcia MD Work Phone: [facility] 05-17-2023 09:01-0400 SaO2% (BldA) [Mass fraction] 95 % Carlos Garcia MD Work Phone: [facility] 05-17-2023 09:01-0400 Systolic blood pressure 124 mm[Hg] Carlos Garcia MD Work Phone: [facility] 01-17-2023 08:36-0400 Body weight 97.07 kg Jesse Longo MD Work Phone: [facility] 01-17-2023 08:36-0400 Diastolic blood pressure 82 mm[Hg] Jesse Longo MD Work Phone: [facility] 01-17-2023 08:36-0400 Heart rate 50 /min Jesse Longo MD Work Phone: [facility] 01-17-2023 08:36-0400 Systolic blood pressure 126 mm[Hg] Jesse oLngo MD Work Phone: [facility] 11-14-2022 11:20-0400 Body weight 99.34 kg Kareen Franc MANAGER PRESENTATION.TECHNICAL SALES SUPPORT SPECIALIST Work Phone: [facility] 11-14-2022 11:20-0400 Diastolic blood pressure 80 mm[Hg] Kareen Franc MANAGER PRESENTATION.TECHNICAL SALES SUPPORT SPECIALIST Work Phone: [facility] 11-14-2022 11:20-0400 Heart rate 64 /min Kareen Franc MANAGER PRESENTATION.TECHNICAL SALES SUPPORT SPECIALIST Work Phone: [facility] 11-14-2022 11:20-0400 SaO2% (BldA) [Mass fraction] 96 % Kareen Franc MANAGER PRESENTATION.TECHNICAL SALES SUPPORT SPECIALIST Work Phone: [facility] 11-14-2022 11:20-0400 Systolic blood pressure 119 mm[Hg] Kareen Franc MANAGER PRESENTATION.TECHNICAL SALES SUPPORT SPECIALIST Work Phone: [facility] 11-01-2022 09:03-0400 Body weight 99.79 kg Jesse Longo MD Work Phone: [facility] 11-01-2022 09:03-0400 Diastolic blood pressure 78 mm[Hg] Jesse Longo MD Work Phone: [facility] 11-01-2022 09:03-0400 Heart rate 85 /min Jesse Longo MD Work Phone: [facility] 11-01-2022 09:03-0400 Systolic blood pressure 132 mm[Hg] Jesse Longo MD Work Phone: [facility] 05-11-2022 09:02-0400 Body weight 105.96 kg Carlos Garcia MD Work Phone: [facility] 05-11-2022 09:02-0400 Diastolic blood pressure 82 mm[Hg] Carlos Garcia MD Work Phone: [facility] 05-11-2022 09:02-0400 Heart rate 56 /min Carlos Garcia MD Work Phone: [facility] 05-11-2022 09:02-0400 SaO2% (BldA) [Mass fraction] 98 % Carlos Garcia MD Work Phone: [facility] 05-11-2022 09:02-0400 Systolic blood pressure 125 mm[Hg] Carlos Garcia MD Work Phone: [facility] 05-10-2022 08:56-0400 Body weight 105.23 kg Jesse Longo MD Work Phone: [facility] 05-10-2022 08:56-0400 Diastolic blood pressure 78 mm[Hg] Jesse Longo MD Work Phone: [facility] 05-10-2022 08:56-0400 Heart rate 56 /min Jesse Longo MD Work Phone: [facility] 05-10-2022 08:56-0400 Systolic blood pressure 141 mm[Hg] Jesse Longo MD Work Phone: [facility] 03-06-2022 09:52-0400 Body height 185.4 cm Ahmed Elghawy DO Work Phone: [facility] 03-06-2022 09:52-0400 Body temperature 97.3 [degF] Ahmed Elghawy DO Work Phone: [facility] 03-06-2022 09:52-0400 Body weight 104.01 kg Ahmed Elghawy DO Work Phone: [facility] 03-06-2022 09:52-0400 Diastolic blood pressure 77 mm[Hg] Javier Pop DO Work Phone: [facility] 03-06-2022 09:52-0400 Heart rate 54 /min Javier Godinezy DO Work Phone: [facility] 03-06-2022 09:52-0400 Systolic blood pressure 141 mm[Hg] Javier Godinezy DO Work Phone: [facility] 11-28-2021 09:56-0400 Diastolic blood pressure 72 mm[Hg] [facility] 11-28-2021 09:56-0400 Heart rate 48 /min [facility] 11-28-2021 09:56-0400 SaO2% (BldA) [Mass fraction] 95 % [facility] 11-28-2021 09:56-0400 Systolic blood pressure 125 mm[Hg] [facility] 11-28-2021 08:34-0400 Body temperature 97.3 [degF] [facility] 11-09-2021 09:45-0400 Body weight 101.61 kg Jesse Longo MD Work Phone: [facility] 11-09-2021 09:45-0400 Diastolic blood pressure 71 mm[Hg] Jesse Longo MD Work Phone: [facility] 11-09-2021 09:45-0400 Heart rate 46 /min Jesse Longo MD Work Phone: [facility] 11-09-2021 09:45-0400 Systolic blood pressure 134 mm[Hg] Jesse Longo MD Work Phone: [facility] 11-09-2021 08:05-0400 Body height 188 cm Carlos Garcia MD Work Phone: [facility] 11-09-2021 08:05-0400 Body weight 101.88 kg Carlos Garcia MD Work Phone: [facility] 11-09-2021 08:05-0400 Diastolic blood pressure 86 mm[Hg] Carlos Garcia MD Work Phone: [facility] 11-09-2021 08:05-0400 Heart rate 54 /min Carlos Garcia MD Work Phone: [facility] 11-09-2021 08:05-0400 Systolic blood pressure 112 mm[Hg] Carlos Garcia MD Work Phone: [facility] Encounters Encounter Date Encounter Type Care Provider Facility Start: 12-20-2023 Get Medical Advice Layla correa PA-C Work Phone: Cardiology Comment on above: METOPROLOL Refill an d dosage Start: 11-27-2023 End: 11-27-2023 ambulatory ARCHANA HARKINS Facility:[facility] Start: 11-25-2023 End: 11-25-2023 ambulatory TAE MARTINEZ Facility:[facility] Start: 11-21-2023 Telephone encounter Layla mcdowell PA-C Work Phone: Cardiology Comment on above: Patient Update Start: 11-15-2023 End: 11-15-2023 ambulatory TAE MARTINEZ Facility:[facility] Start: 11-15-2023 End: 11-15-2023 Patient encounter procedure Nurse Card [facility] Rej Work Phone: Cardiology Comment on above: Persistent atrial fi brillation (HCC) Start: 11-08-2023 End: 11-08-2023 ambulatory TAE MARTINEZ Facility:[facility] Start: 11-08-2023 End: 11-08-2023 Patient encounter procedure Layla Roger PA-C Work Phone: Cardiology Comment on above: Persistent atrial fi brillation (HCC) (Primary Dx); S/P ablation of atrial fibrillation; On continuous oral anticoagulation Start: 11-01-2023 Telephone encounter Jesse Longo MD Work Phone: Cardiology Comment on above: Patient is Back in A fib Start: 10-15-2023 End: 10-15-2023 ambulatory JESSE LONGO Facility:[facility] Start: 10-14-2023 Telephone encounter Layla mcdowell PA-C Work Phone: Cardiology Comment on above: Procedure (Cardiover kyle) Start: 10-11-2023 End: 10-12-2023 ambulatory LAYLA ROGER Facility[facility] Start: 10-07-2023 Telephone encounter Jesse Longo MD Work Phone: Cardiology Comment on above: A-fib Start: 08-08-2023 End: 08-08-2023 ambulatory JESSE LONGO Facility:[facility] Start: 07-24-2023 End: 07-24-2023 ambulatory Tae Martinez Other [employer] [facility] [employer] Other Start: 07-24-2023 Telephone encounter Tae Martinez [facility] Start: 06-05-2023 End: 06-05-2023 ambulatory Tae Martinez Other [facility] Other Start: 06-05-2023 Office outpatient vi sit 25 minutes Tae Martinez [facility] Start: 05-21-2023 ambulatory Carlos ansari MD Work Phone: Cardiology Comment on above: LDL Start: 05-21-2023 E-mail encounter fro m caregiver Carlos Garcia MD Work Phone: KEVIN HARKINS [facility] Start: 05-20-2023 Telephone encounter Tae Martinez [facility] Start: 05-20-2023 End: 05-20-2023 ambulatory CARLOS GARCIA [facility] [employer] Other Start: 05-17-2023 End: 05-17-2023 ambulatory CARLOS GARCIA Facility:[facility] Start: 05-17-2023 End: 05-17-2023 Patient encounter procedure Carlos Garcia MD Work Phone: Cardiology Comment on above: Coronary artery dise ase involving [place] heart without angina pectoris, unspecified vessel or lesion type (Primary Dx) Start: 04-25-2023 Refill Carlos ansari MD Work Phone: Cardiology Comment on above: Refill Request Start: 01-17-2023 End: 01-17-2023 ambulatory JESSE LONGO Facility:[facility] Start: 01-17-2023 End: 01-17-2023 Patient encounter procedure Jesse Longo MD Work Phone: Cardiology Comment on above: Persistent atrial fi brillation (HCC) (Primary Dx) Start: 11-24-2022 Refill Jesse Longo MD Work Phone: Cardiology Comment on above: Refill Request Start: 11-14-2022 End: 11-14-2022 Patient encounter procedure Kareen Bruner APRN.TECHNICAL SALES SUPPORT SPECIALIST Work Phone: Cardiology Comment on above: Persistent atrial fi brillation (HCC) (Primary Dx); Atrial fibrillation status post cardioversion (HCC) Start: 11-01-2022 End: 11-01-2022 Patient encounter procedure Jesse Longo MD Work Phone: Cardiology Comment on above: Persistent atrial fi brillation (HCC) (Primary Dx) Paroxysmal atrial fi brillation (HCC) (Primary Dx) Start: 10-22-2022 Telephone encounter Jesse Longo MD Work Phone: Cardiology Comment on above: Atrial Fibrillation Start: 09-12-2022 Telephone encounter Carlos joseph MD Work Phone: Cardiology Comment on above: Patient Update Start: 08-10-2022 Refill Jesse Longo MD Work Phone: Cardiology Comment on above: Refill Request Start: 08-09-2022 Refill Jesse Longo MD Work Phone: Cardiology Comment on above: Refill Request Start: 07-21-2022 ambulatory Carmen Johnson RN NURSE JAVA GROOVY DEVELOPER Comment on above: Post Op Bleeding (Br uising/) Start: 06-04-2022 Orders Only Jesse Longo MD Work Phone: Cardiology Comment on above: Persistent atrial fi brillation (HCC) (Primary Dx) Start: 05-31-2022 Refill Carlos ansari MD Work Phone: Cardiology Comment on above: Refill Request Start: 05-11-2022 End: 05-11-2022 Patient encounter procedure Carlos Garcia MD Work Phone: Cardiology Comment on above: Coronary artery dise ase involving [place] coronary artery of [place] heart, unspecified whether angina present (Primary Dx) Start: 05-10-2022 End: 05-10-2022 Patient encounter procedure Jesse Longo MD Work Phone: Cardiology Comment on above: Persistent atrial fi brillation (HCC) (Primary Dx) Start: 03-21-2022 Refill Carlos ansari MD Work Phone: Cardiology Comment on above: Refill Request Start: 03-16-2022 End: 03-17-[address] TAE MARTINEZ Facility:[facility] Start: 03-06-2022 End: 03-06-2022 Patient encounter procedure Jose Guadalupetiny Kimble Kiesha QUEZADA Work Phone: [facility] Comment on above: Primary osteoarthrit is of both knees (Primary Dx); Positive KISHA (antinuclear antibody) Start: 12-19-2021 Refill Jesse Longo MD Work Phone: Cardiology Comment on above: Refill Request Start: 12-13-2021 End: 12-13-2021 Patient encounter procedure Stress Echo [facility] Rej Work Phone: Cardiology Comment on above: Under observation fo r suspected coronary artery disease; Essential hypertension; Persistent atrial fibrillation (HCC); Pulmonary hypertension, unspecified (HCC) Start: 12-05-2021 Encounter for genera l adult medical examination without abnormal findings DR TAE MARTINEZ [facility] Start: 11-29-2021 End: 11-30-[address] TAE MARTINEZ Facility:[facility] Start: 11-29-2021 End: 11-30-2021 Encounter for general adult medical examination without abnormal findings DR TAE MARTINEZ Facility:[facility] Start: 11-28-2021 Telephone encounter Carlos joseph MD Work Phone: Cardiology Comment on above: Results; Orders Start: 11-28-2021 End: 11-28-2021 Subsequent hospital visit by physician [facility] Comment on above: Under observation fo r suspected coronary artery disease [Z03.89] Start: 11-27-2021 ambulatory Carlos ansari MD Work Phone: Cardiology Comment on above: Medications Start: 11-27-2021 Telephone encounter Carlos joseph MD Work Phone: Cardiology Comment on above: Orders Start: 11-23-2021 Adult health examination Ricardo Martinez Other [facility] Other Start: 11-09-2021 End: 11-09-2021 Patient encounter procedure Carlos Garcia MD Work Phone: Cardiology Comment on above: Under observation fo r suspected coronary artery disease (Primary Dx); Other hyperlipidemia; Essential hypertension; Persistent atrial fibrillation (HCC); Pulmonary hypertension, unspecified (HCC); Abnormal nuclear stress test Persistent atrial fi brillation (HCC) (Primary Dx) Procedures Date Procedure Procedure Detail Performing Clinician Start: 11-08-2023 Ecg routine ecg w/le ast 12 lds i&r only [facility] Provider Start: 05-20-2023 Lipid 1996 panel - S too or Plasma Carlos Garcia MD Work Phone: Start: 01-17-2023 Ecg routine ecg w/le ast 12 lds i&r only [facility] Provider Start: 11-14-2022 Ecg routine ecg w/le ast 12 lds i&r only [facility] Provider Start: 11-01-2022 Ecg routine ecg w/le ast 12 lds i&r only [facility] Provider Start: 05-18-2022 Lipid 1996 panel - S too or Plasma Carlos Garcia MD Work Phone: Start: 03-06-2022 End: 03-06-2022 Arthrocentesis aspir&/inj major jt/bursa w/us Ahmed A Elghawy DO Work Phone: Start: 03-06-2022 Arthrocentesis aspir &/inj major jt/bursa w/us Ahmed A Elghawy DO Work Phone: Start: 12-13-2021 Echo tthrc r-t 2d w/wom-mode compl spec&colr d Carlos Garcia MD Work Phone: Start: 11-29-[address] LANIE GARDNER JUAN Comment on above: Performed By: #### [facility] #### [facility] [facility] [address] [place] [address] Dr. Sunil Claudio Start: 11-28-2021 Cta hrt cornry art/b ypass grfts contrst 3d post Carlos Garcia MD Work Phone: Start: 11-28-2021 Creatinine [Mass/vol ume] in Serum or Plasma [facility] Provider Start: 09-03-2021 Adult depression scr eening assessment Carlos Garcia MD Work Phone: Start: 09-12-2016 Screening for malign ant neoplasm of colon Tae Martinez Other Start: 04-27-2015 General examination of patient Tae Martinez Other Start: 02-15-2014 Screening for malign ant neoplasm of prostate Tae Martinez Other Depression screening Alexey Martinez Other Plan of Treatment Date Care Activity Detail Author Start: 05-20-2028 Lipid 1996 panel - S too or Plasma Lipid Screening [facility] Start: 05-20-2028 Lipid panel Lipid Screening [facility] Start: 04-04-2028 Urine microalbumin profile DTa P,Tdap,Td Vaccine (2 - Tdap) [facility] Start: 05-18-2027 Lipid 1996 panel - S too or Plasma Lipid Screening [facility] Start: 05-18-2027 LIPID SCREEN LIPID SCREEN [facility] Start: 11-29-2026 PROSTATE CANCER SCRE ENING DISCUSSION PROSTATE CANCER SCREENING DISCUSSION [facility] Start: 11-29-2026 Prostate specific an tigen measurement Prostate Cancer Screening Discussion [facility] Start: 11-28-2026 LIPID SCREEN LIPID SCREEN [facility] Start: 11-24-2026 Diabetes Screening Diabetes Screenin g [facility] Start: 10-10-2026 Diabetes Screening Diabetes Screenin g [facility] Start: 05-12-2026 LIPID SCREEN LIPID SCREEN [facility] Start: 11-05-2025 DIABETES SCREEN DIABETES SCREEN [facility] Start: 11-05-2025 Diabetes Screening Diabetes Screenin g [facility] Start: 07-13-2025 DIABETES SCREEN DIABETES SCREEN [facility] Start: 12-18-2024 DIABETES SCREEN DIABETES SCREEN [facility] Start: 11-28-2024 DIABETES SCREEN DIABETES SCREEN [facility] Start: 10-10-2024 BP Controlled (<130/80) BP Controlle d (<130/80) [facility] Start: 08-08-2024 BP Controlled (<130/80) BP Controlle d (<130/80) [facility] Start: 07-11-2024 DIABETES SCREEN DIABETES SCREEN [facility] Start: 05-20-2024 Hepatitis B surface antibody level LDL Cholesterol [facility] Start: 05-17-2024 BP Controlled (<130/80) BP Controlle d (<130/80) [facility] Start: 01-09-2024 End: 01-09-2024 Patient encounter procedure 01/09/2024 11:00 AM EDT Office Visit Cardiology [address] [place], [place] [id number] [place] [address] [place] [address] 6 month follow up Cardiology Comment on above: 6 month follow up Start: 11-28-2023 End: 02-27-2024 Basic metabolic 2000 panel - Serum or Plasma BASIC METABOLIC PANEL Lab Routine Persistent atrial fibrillation (HCC) Expected: 11/28/2023 (Approximate), Expires: 02/27/2024 [facility] Comment on above: Expected: 11/28/2023 (Approximate), Expires: 02/27/2024 Start: 11-28-2023 End: 02-27-2024 CBC panel - Blood by Automated count COMPLETE BLOOD COUNT Lab Routine Persistent atrial fibrillation (HCC) Expected: 11/28/2023 (Approximate), Expires: 02/27/2024 [facility] Comment on above: Expected: 11/28/2023 (Approximate), Expires: 02/27/2024 Start: 11-28-2023 End: 02-27-2024 Magnesium [Mass/volume] in Serum or Plasma MAGNESIUM Lab Routine Persistent atrial fibrillation (HCC) Expected: 11/28/2023 (Approximate), Expires: 02/27/2024 [facility] Comment on above: Expected: 11/28/2023 (Approximate), Expires: 02/27/2024 Start: 11-28-2023 End: 11-28-2023 ambulatory 11/28/2023 8:30 AM EDT Results Only [facility] [address] [place] [address] [facility] Start: 11-15-2023 End: 11-15-2023 Patient encounter procedure 11/15/2023 8:30 AM EDT Office Visit Cardiology [address] [place] [address] ekg Cardiology Comment on above: ekg Start: 10-04-2023 Advance Directive Discussion Advance Directive Discussion [facility] Start: 10-04-2023 Pneumococcal Vaccine : 65+ (1 of 1 - PCV) Pneumococcal Vaccine: 65+ (1 of 1 - PCV) [facility] Start: 08-03-2023 BP CONTROLLED (<130/80) BP CONTROLLE D (<130/80) [facility] Start: 07-15-2023 Behavioral Health Screening Behavioral Health Screening [facility] Start: 07-15-2023 Depression Assessment Depression Ass essment [facility] Start: 05-18-2023 Hepatitis B surface antibody level LDL CHOLESTEROL [facility] Start: 05-17-2023 End: 08-16-2023 Lipid 1996 panel - Serum or Plasma LIPID PANEL BASIC Lab Routine Coronary artery disease involving [place] heart without angina pectoris, unspecified vessel or lesion type Expected: 05/17/2023, Expires: 08/16/2023 [facility] Work Phone: Comment on above: Expected: 05/17/2023 , Expires: 08/16/2023 Start: 03-15-2023 Covid-19 Vaccine () Covid-19 Vaccine () [facility] Start: 03-15-2023 Influenza vaccination [facility] Start: 11-28-2022 Hepatitis B surface antibody level LDL CHOLESTEROL [facility] Start: 11-01-2022 End: 01-01-2023 Basic metabolic 2000 panel - Serum or Plasma BASIC METABOLIC PNL Lab Routine Paroxysmal atrial fibrillation (HCC) Expected: 11/01/2022, Expires: 01/01/2023 [facility] Work Phone: Comment on above: Expected: 11/01/2022 , Expires: 01/01/2023 Start: 11-01-2022 End: 01-01-2023 CBC W Auto Differential panel - Blood CBC + DIFF Lab Routine Paroxysmal atrial fibrillation (HCC) Expected: 11/01/2022, Expires: 01/01/2023 [facility] Work Phone: Comment on above: Expected: 11/01/2022 , Expires: 01/01/2023 Start: 09-03-2022 Adult depression scr eening assessment DEPRESSION SCREENING [facility] Start: 07-15-2022 DEPRESSION ASSESSMENT DEPRESSION ASS ESSMENT [facility] Start: 05-12-2022 Hepatitis B surface antibody level LDL CHOLESTEROL [facility] Start: 05-11-2022 End: 07-11-2022 Lipid 1996 panel - Serum or Plasma LIPID PANEL BASIC Lab Routine Coronary artery disease involving [place] coronary artery of [place] heart, unspecified whether angina present Expected: 05/11/2022, Expires: 07/11/2022 [facility] Work Phone: Comment on above: Expected: 05/11/2022 , Expires: 07/11/2022 Start: 03-15-2022 Influenza vaccination [facility] Start: 11-28-2021 End: 01-28-2022 Basic metabolic 2000 panel - Serum or Plasma BASIC METABOLIC PNL Lab Routine Coronary artery disease involving [place] coronary artery of [place] heart, unspecified whether angina present Expected: 11/28/2021, Expires: 01/28/2022 [facility] Work Phone: Comment on above: Expected: 11/28/2021 , Expires: 01/28/2022 Start: 11-28-2021 End: 01-28-2022 CBC panel - Blood by Automated count CBC Lab Routine Coronary artery disease involving [place] coronary artery of [place] heart, unspecified whether angina present Expected: 11/28/2021, Expires: 01/28/2022 [facility] Work Phone: Comment on above: Expected: 11/28/2021 , Expires: 01/28/2022 Start: 11-09-2021 End: 01-09-2022 Basic metabolic 2000 panel - Serum or Plasma BASIC METABOLIC PNL Lab Routine Under observation for suspected coronary artery disease Expected: 11/09/2021, Expires: 01/09/2022 [facility] Work Phone: Comment on above: Expected: 11/09/2021 , Expires: 01/09/2022 Start: 11-09-2021 End: 01-09-2022 LIPID PANEL BASIC LIPID PANEL BASIC Lab Routine Under observation for suspected coronary artery disease Expected: 11/09/2021, Expires: 01/09/2022 [facility] Work Phone: Comment on above: Expected: 11/09/2021 , Expires: 01/09/2022 Start: 07-15-2021 DEPRESSION ASSESSMENT DEPRESSION ASS ESSMENT [facility] Start: 07-14-2021 COVID-19 VACCINE (4 - Booster for Moderna series) COVID-19 VACCINE (4 - Booster for Moderna series) [facility] Start: 2018 RSV Vaccine (1 - 1-d ose 60+ series) RSV Vaccine (1 - 1-dose 60+ series) [facility] Start: 2013 PROSTATE CANCER SCRE ENING DISCUSSION PROSTATE CANCER SCREENING DISCUSSION [facility] Start: 2008 SHINGRIX VACCINE (1 of 2) HANSON GRIX VACCINE (1 of 2) [facility] Start: 10-04-2003 COLOGUARD (FIT-DNA) COLOGUARD (FIT-D NA) [facility] Start: 10-04-2003 Colonoscopy COLONOSCOPY [facility] Start: 10-04-2003 COLORECTAL CANCER SCREENING COLORECTAL CANCER SCREENING [facility] Start: 10-04-[address] COLONOGRAPHY [facility] Start: 10-04-2003 FECAL OCCULT BLOOD FECAL OCCULT BLOO D [facility] Start: 10-04-2003 Screening for malign ant neoplasm of colon [facility] Start: 10-04-2003 SIGMOIDOSCOPY SIGMOIDOSCOPY [facility] Start: 1977 Urine microalbumin profile [facility] Start: 1976 ANNUAL PCP TEAM MICROBIOLOGY LAB MANAGER HARMAN DISEASE VISIT ANNUAL PCP TEAM CHRONIC DISEASE VISIT [facility] Start: 1976 BP CONTROLLED (<130/80) BP CONTROLLE D (<130/80) [facility] Start: 1976 HEPATITIS C SCREENING HEPATITIS C [facility] Start: 1976 Hepatitis C screening Hepatitis C [facility] Start: 1976 HIV SCREENING HIV SCREENING [facility] Start: 1976 HIV screening HIV Screening [facility] Start: 10-04-1963 COVID-19 VACCINE (#1) COVID-19 VACCI NE (#1) [facility] Start: 10-04-1963 COVID-19 VACCINE (1) COVID-19 VACCIN E (1) [facility] Start: 04-05-1959 COVID-19 VACCINE (#1) COVID-19 VACCI NE (#1) [facility] Cardioversion electi ve arrhythmia internal spx CARDIOVERSION, ELECTIVE, ELECTRICAL Cardiology Routine Persistent atrial fibrillation (HCC) Ordered: 11/21/2023 [facility] Work Phone: Comment on above: Ordered: 11/21/2023 End: 12-09-2022 Cta hrt cornry art/bypass grfts contrst 3d post CTA CORONARY W IVCON Radiology Routine Under observation for suspected coronary artery disease Abnormal nuclear stress test 1 Occurrences starting 11/09/2021 until 12/09/2022 [facility] Work Phone: Comment on above: 1 Occurrences starti ng 11/09/2021 until 12/09/2022 End: 11-09-2022 ECG COMPLETE ECG COMPLETE ECG Routine Persistent atrial fibrillation (HCC) 1 Occurrences starting 11/09/2021 until 11/09/2022 [facility] Work Phone: Comment on above: 1 Occurrences starti ng 11/09/2021 until 11/09/2022 End: 05-10-2023 ECG COMPLETE ECG COMPLETE ECG Routine Persistent atrial fibrillation (HCC) 1 Occurrences starting 05/10/2022 until 05/10/2023 [facility] Work Phone: Comment on above: 1 Occurrences starti ng 05/10/2022 until 05/10/2023 End: 11-02-2023 ECG COMPLETE ECG COMPLETE ECG Routine Persistent atrial fibrillation (HCC) 1 Occurrences starting 11/01/2022 until 11/02/2023 [facility] Work Phone: Comment on above: 1 Occurrences starti ng 11/01/2022 until 11/02/2023 ECG COMPLETE ECG COMPLETE ECG 11/01/2022 9:02 AM EDT [facility] End: 01-18-2024 ECG COMPLETE ECG COMPLETE ECG Routine Persistent atrial fibrillation (HCC) 1 Occurrences starting 01/17/2023 until 01/18/2024 [facility] Work Phone: Comment on above: 1 Occurrences starti ng 01/17/2023 until 01/18/2024 ECG COMPLETE ECG COMPLETE ECG 01/17/2023 8:35 AM EDT [facility] ECG COMPLETE [facility] Work Phone: Comment on above: Ordered: 11/08/2023 End: 11-07-2024 ECG COMPLETE ECG COMPLETE ECG Routine Persistent atrial fibrillation (HCC) 1 Occurrences starting 11/08/2023 until 11/07/2024 [facility] Comment on above: 1 Occurrences starti ng 11/08/2023 until 11/07/2024 End: 11-09-2022 Echocardiography ECHO Cardiology Routine Under observation for suspected coronary artery disease Essential hypertension Persistent atrial fibrillation (HCC) Pulmonary hypertension, unspecified (HCC) 1 Occurrences starting 11/09/2021 until 11/09/2022 [facility] Work Phone: Comment on above: 1 Occurrences starti ng 11/09/2021 until 11/09/2022 [facility] Immunizations Immunization Date Immunization Notes Care Provider Shana andrade 11-01-2022 COVID-19 Pfizer (bivalent) Tae Martinez Other [facility] Other 05-02-2022 influenza, injectabl e, quadrivalent, contains preservative Carlos Garcia MD Work Phone: [facility] 05-02-2022 Seasonal, quadrivalent, recombinant, injectable influenza vaccine, preservative free Tae Martinez Other [facility] Other 05-02-2022 influenza virus vaccine, unspecified formulation Carlos Garcia MD Work Phone: [facility] 07-12-2021 zoster vaccine recombinant Tae Martinez Other [facility] Other 05-19-2021 COVID-19 original vaccine, booster dose, monovalent (MODERNA) Carlos Garcia MD Work Phone: [facility] 05-15-2021 zoster vaccine recombinant Tae Martinez Other [facility] Other 04-21-2021 influenza virus vaccine, split virus (incl. purified surface antigen) Tae Martinez Other [facility] Other 10-15-2020 COVID-19 original vaccine, full dose, monovalent (MODERNA) Carlos Garcia MD Work Phone: [facility] 09-17-2020 COVID-19 original vaccine, full dose, monovalent (MODERNA) Carlos Garcia MD Work Phone: [facility] 06-19-2018 influenza virus vaccine, split virus (incl. purified surface antigen) Tae Martinez Other [facility] Other 06-19-2018 Influenza, injectabl e, Madin Maryan Canine Kidney, preservative free, quadrivalent Carlos Garcia MD Work Phone: [facility] 04-04-2018 diphtheria, tetanus toxoids and acellular pertussis vaccine, unspecified formulation Tae Martinez Other [facility] Other 06-25-2017 influenza, injectabl e, quadrivalent, preservative free Carlos Garcia MD Work Phone: [facility] 06-25-2017 tetanus and diphther ia toxoids, adsorbed, preservative free, for adult use (5 Lf of tetanus toxoid and 2 Lf of diphtheria toxoid) Tae Martinez Other [facility] Other 06-22-2016 influenza virus vaccine, split virus (incl. purified surface antigen) Tae Martinez Other [facility] Other 03-20-2015 influenza virus vaccine, split virus (incl. purified surface antigen) Tae Juan Other [facility] Other Payers Date Payer Category Payer Unknown MMO MMO [employer] [id number] 2015-Present [phone] [address] [address] [place] [address] O [id number] 2015 Unknown [id number] 1959 Unknown [id number] 1958 Unknown [id number] 1958 Unknown [id number] Social History Date Type Detail Facility Start: 03-03-2021 End: 03-06-2022 Tobacco smoking status NHIS Never smoked tobacco [facility] Start: 03-03-2021 End: 03-06-2022 Tobacco use and exposure Smokeless tobacco non-user [facility] Start: 11-09-2021 End: 11-08-2023 Alcohol intake Current drinker of alcohol (finding) [facility] Start: 03-03-2021 History SDOH Alcohol Frequency 1 [facility] Start: 03-03-2021 History SDOH Alcohol Comment rare [facility] Start: 1960 Sex Assigned At Male [facility] Start: 10-30-2021 End: 05-10-2022 Exposure to SARS-CoV-2 (event) Not sure [facility] Start: 11-14-2022 End: 01-17-2023 History of Social function [facility] Start: 11-14-2022 End: 01-17-2023 Tobacco use panel [facility] Adult Depression Screening Assessment 0 [facility] Start: 07-14-2021 Gender identity Identifies as male gender (finding) [facility] Start: 07-14-2021 Sexual orientation Heterosexual (fin valerio) [facility] Start: 11-27-2023 Alcohol intake Ex-drinker (finding) [facility] Goals Date Patient Goal Desired Activity /State Personal health goal Clinical Notes 11-09-2021 to 12-20-2023 Telephone Encounter - Mary Santo LPN - 12/20/2023 2:48 PM EDTTelephone Encounter - Mary Santo LPN - 12/20/2023 2:48 PM Katlyn Stein RN - 11/15/2023 8:34 AM EDTPatient Instructions Note Date & Type Note Facility 12-20-2023 Telephone encounter Note Pt wants metoprolol 25mg tablets instead of cutting the 50mg tablets in half. Received request for refill of the following medications: Requested Prescriptions Pending Prescriptions Disp Refills metoprolol succinate ER (TOPROL XL) 25 mg 24 hr tablet 90 tablet 3 Sig: Take 1 tablet by mouth daily at bedtime. Patient requested a 90 day refill. Pharmacy verified and updated accordingly. Patient was last seen in cardiology office: 11/08/23. Upcoming appointment scheduled: 01/09/24. Labs: Hemoglobin (g/dL) Date Value 11/25/2023 14.7 08/14/2021 14.1 Hematocrit (%) Date Value 11/25/2023 44.2 08/14/2021 41.9 WBC (k/uL) Date Value 11/25/2023 8.76 08/14/2021 9.89 Platelet Count (k/uL) Date Value 11/25/2023 223 08/14/2021 258 Creatinine Date Value Ref Range Status 11/25/2023 0.82 0.73 - 1.22 mg/dL Final 10/11/2023 0.71 (L) 0.73 - 1.22 mg/dL Final [facility] 12-20-2023 Miscellaneous Notes Pt wants metoprolol 25mg tablets instead of cutting the 50mg tablets in half. Received request for refill of the following medications: Requested Prescriptions Pending Prescriptions Disp Refills metoprolol succinate ER (TOPROL XL) 25 mg 24 hr tablet 90 tablet 3 Sig: Take 1 tablet by mouth daily at bedtime. Patient requested a 90 day refill. Pharmacy verified and updated accordingly. Patient was last seen in cardiology office: 11/08/23. Upcoming appointment scheduled: 01/09/24. Labs: Hemoglobin (g/dL) Date Value 11/25/2023 14.7 08/14/2021 14.1 Hematocrit (%) Date Value 11/25/2023 44.2 08/14/2021 41.9 WBC (k/uL) Date Value 11/25/2023 8.76 08/14/2021 9.89 Platelet Count (k/uL) Date Value 11/25/2023 223 08/14/2021 258 Creatinine Date Value Ref Range Status 11/25/2023 0.82 0.73 - 1.22 mg/dL Final 10/11/2023 0.71 (L) 0.73 - 1.22 mg/dL Final documented in this encounter [facility] 11-21-2023 Telephone encounter Note Called and left message for patient to call me back to schedule his cardioversion and to get labs done. [facility] 11-21-2023 Miscellaneous Notes Called and left message for patient to call me back to schedule his cardioversion and to get labs done. EKG from 11/14 shows persistent AF Please offer him a cardioversion (we discussed this at last office visit) He will need updated labs (ordered) Dr Longo appt in December needs to stay and he may be set up for redo ablation Layla Roger PA-C documented in this encounter [facility] 11-21-2023 Telephone encounter Note EKG from 11/14 shows persistent AF Please offer him a cardioversion (we discussed this at last office visit) He will need updated labs (ordered) Dr Longo appt in December needs to stay and he may be set up for redo ablation Layla Roger PA-C [facility] 11-15-2023 Note HNO ID: [id number] Author: KATLYN ORELLANA RN Service: ? Author Type: Registered Nurse Type: Progress Notes Filed: 11/15/2023 08:43 Note Text: Pt here for EKG . Pt was started on new medication last week and here for follow up EKG. Pt with no symptoms . Provider notified of completion [facility] 11-15-2023 History of Presen t illness Narrative Pt here for EKG . Pt was started on new medication last week and here for follow up EKG. Pt with no symptoms . Provider notified of completion documented in this encounter [facility] 11-08-2023 Note HNO ID: [id number] Author: LAYLA ROGER PA-C Service: ? Author Type: Physician Television Announcer Type: Progress Notes Filed: 11/08/2023 16:34 Note Text: [facility] Department of Cardiovascular Medicine SECTION OF CARDIAC PACING and ELECTROPHYSIOLOGY OUTPATIENT VISIT DATE November 08, 2023 OUTPATIENT VISIT TYPE ESTABLISHED PRIMARY CARE PHYSICIAN: Tae Martinez ([facility]) [address] [id number] CHIEF COMPLAINT: Cardiology follow up HISTORY OF PRESENT ILLNESS: Mr. Kohli is a 63 year old male who presents today for follow-up visit. He is a patient of Dr Longo and Dr Garcia with history of persistent atrial fibrillation s/p PVI 07/2022, hypertension, dyslipidemia, RA, BPH, DICK (-CPAP). Seen on 10/10 by myself for recurrent atrial fibrillation complaints. Was given Toprol to help with heart rate control and set up for cardioversion that was completed on 10/14. More recently on 10/31 he called the office reporting recurrent atrial fibrillation again, and is here for follow-up Certainly notices a difference between sinus rhythm and atrial fibrillation. Much more fatigued and tired. Not able to do as much is normal. He is not having any swelling problems. Heart rates are overall controlled; 84 on today's EKG atrial fibrillation He denies chest pain, shortness of breath, orthopnea, cough, edema, palpitations, PND, lightheadedness or syncope. PAST CARDIAC HISTORY: See above PAST MEDICAL HISTORY Diagnosis Date Atrial fibrillation (HCC) BPH (benign prostatic hyperplasia) Elevated TSH Essential hypertension Meningitis spinal 1964 Osteoarthritis of both knees Other hyperlipidemia Rheumatoid arthritis (HCC) Sleep apnea 10/15/2023 Under observation for suspected coronary artery disease PAST SURGICAL HISTORY Procedure Laterality Date ARTHROSCOPY KNEE DIAGNOSTIC W/WO SYNOVIAL BX SPX Right 2013 SHX CARDIAC RADIOFREQUENCY ABLATION 07/18/2022 PVI/PWI (Afib) TONSILLECTOMY HX SOCIAL HISTORY Social History Tobacco Use Smoking status: Never Smokeless tobacco: Never Vaping Use Vaping Use: Never used Substance Use Topics Alcohol use: Yes Comment: rare Drug use: Never FAMILY HISTORY Problem Relation Age of Onset Coronary Artery Disease Father 57 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 ezetimibe (ZETIA) 10 mg tablet Take 1 tablet by mouth once daily. apixaban (ELIQUIS) 5 mg tab(s) Take 1 tablet by mouth two times a day. nitroglycerin sublingual (NITROQUICK) 0.4 mg SL tablet Dissolve 1 tablet under the tongue every 5 minutes as needed for chest pain. If no pain relief call 911. rosuvastatin (CRESTOR) 40 mg tablet take 1 tablet at bedtime Cholecalciferol, Vitamin D3, 50 mcg (2,000 unit) cap Take 2,000 Units by mouth once daily. Zinc 50 mg tab Take 1 tablet by mouth once daily. benazepril (LOTENSIN) 20 mg tablet Take 20 mg by mouth once daily. MEN'S MULTI-VITAMIN ORAL Take by mouth once daily. Coenzyme Q10 200 mg cap Take 200 mg by mouth once daily. glucosamine/chondr prieto A sod (OSTEO BI-FLEX ORAL) Take 2 tablets by mouth one time only. S-Adenosylmethionine 400 mg tab Take 400 mg by mouth once daily. REVIEW OF SYSTEMS: + Findings in bold GENERAL: Negative for: Weight loss or gain, Fever or Chills, Weakness and Sleep difficulties. HEENT: Negative for: Headache, Impaired Vision, Glasses, Hearing Impairment, Ringing in Ears, Nosebleeds, Poor Dental Care, Bleeding Gums and Dentures. NECK: Negative for: Swelling, Pain, Stiffness RESPIRATORY: Negative for: Cough, Blood in Sputum, Shortness of breath, Wheezing, Apnea GASTROINTESTINAL: Negative for: Trouble swallowing, Heartburn, Change in bowel habits, Blood in stool, Dark black stools MUSCULOSKELETAL: Negtive for: Muscle or joint pain, stiffness, Joint swelling NEUROLOGIC/PSYCHIATRIC: Negative for: Weakness, Paralysis, Numbness, Tingling, Tremor, Nervousness or anxiety, Depressed mood, Memory loss SKIN: Negative for: Rash, Itching HEMATOLOGICAL/LYMPHATIC: Negative for: Easy bruising, Easy bleeding ENDOCRINE: Negative for: Heat or Cold Intolerance, Excessive Sweating, Frequent Urination, Frequent Thirst PHYSICAL EXAMINATION: BP 132/80 (BP Site: Left Arm, BP Position: Sitting, BP Cuff Size: Large Adult) Pulse 84 Ht 188 cm (6' 2.02 ) Wt 99.3 kg (218 lb 14.7 oz) BMI 28.10 kg/m? General: Well appearing, in no acute distress, speaking in complete sentences. Neck: No jugular venous distention, no carotid bruits, carotids have a normal upstroke, no palpable thyromegaly. Lungs: Clear to auscultation bilaterally, no wheezing or rhonchi. Heart: Irregular rhythm, PMI no (more content not included)... [facility] 11-08-2023 Instructions Layla Roger PA-C - 11/08/2023 4:24 PM EDT - Try flecainide 100 mg Twice daily - For now keep Toprol at 50 mg but if you convert to regular rhythm then reduce that to 25 mg - Continue blood thinner - EKG in 1 week with nursing -- if still in AFib then we do another cardioversion. If in regular rhythm then will see Dr Arias - Move up appt with Dr Longo over the summer at either location Layla Roger PA-C documented in this encounter [facility] 11-08-2023 History of Presen t illness Narrative Images from the original note were not included. [facility] Department of Cardiovascular Medicine SECTION OF CARDIAC PACING and ELECTROPHYSIOLOGY OUTPATIENT VISIT DATE November 08, 2023 OUTPATIENT VISIT TYPE ESTABLISHED PRIMARY CARE PHYSICIAN: Tae Martinez ([place]) [address] [place] [address] CHIEF COMPLAINT: Cardiology follow up HISTORY OF PRESENT ILLNESS: Mr. Kohli is a 63 year old male who presents today for follow-up visit. He is a patient of Dr Longo and Dr Garcia with history of persistent atrial fibrillation s/p PVI 07/2022, hypertension, dyslipidemia, RA, BPH, DICK (-CPAP). Seen on 10/10 by myself for recurrent atrial fibrillation complaints. Was given Toprol to help with heart rate control and set up for cardioversion that was completed on 10/14. More recently on 10/31 he called the office reporting recurrent atrial fibrillation again, and is here for follow-up Certainly notices a difference between sinus rhythm and atrial fibrillation. Much more fatigued and tired. Not able to do as much is normal. He is not having any swelling problems. Heart rates are overall controlled; 84 on today's EKG atrial fibrillation He denies chest pain, shortness of breath, orthopnea, cough, edema, palpitations, PND, lightheadedness or syncope. PAST CARDIAC HISTORY: See above PAST MEDICAL HISTORY Diagnosis Date Atrial fibrillation (HCC) BPH (benign prostatic hyperplasia) Elevated TSH Essential hypertension Meningitis spinal 1964 Osteoarthritis of both knees Other hyperlipidemia Rheumatoid arthritis (HCC) Sleep apnea 10/15/2023 Under observation for suspected coronary artery disease PAST SURGICAL HISTORY Procedure Laterality Date ARTHROSCOPY KNEE DIAGNOSTIC W/WO SYNOVIAL BX SPX Right 2013 SHX CARDIAC RADIOFREQUENCY ABLATION 07/18/2022 PVI/PWI (Afib) TONSILLECTOMY HX SOCIAL HISTORY Social History Tobacco Use Smoking status: Never Smokeless tobacco: Never Vaping Use Vaping Use: Never used Substance Use Topics Alcohol use: Yes Comment: rare Drug use: Never FAMILY HISTORY Problem Relation Age of Onset Coronary Artery Disease Father 57 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 ezetimibe (ZETIA) 10 mg tablet Take 1 tablet by mouth once daily. apixaban (ELIQUIS) 5 mg tab(s) Take 1 tablet by mouth two times a day. nitroglycerin sublingual (NITROQUICK) 0.4 mg SL tablet Dissolve 1 tablet under the tongue every 5 minutes as needed for chest pain. If no pain relief call 911. rosuvastatin (CRESTOR) 40 mg tablet take 1 tablet at bedtime Cholecalciferol, Vitamin D3, 50 mcg (2,000 unit) cap Take 2,000 Units by mouth once daily. Zinc 50 mg tab Take 1 tablet by mouth once daily. benazepril (LOTENSIN) 20 mg tablet Take 20 mg by mouth once daily. MEN'S MULTI-VITAMIN ORAL Take by mouth once daily. Coenzyme Q10 200 mg cap Take 200 mg by mouth once daily. glucosamine/chondr prieto A sod (OSTEO BI-FLEX ORAL) Take 2 tablets by mouth one time only. S-Adenosylmethionine 400 mg tab Take 400 mg by mouth once daily. REVIEW OF SYSTEMS: + Findings in bold GENERAL: Negative for: Weight loss or gain, Fever or Chills, Weakness and Sleep difficulties. HEENT: Negative for: Headache, Impaired Vision, Glasses, Hearing Impairment, Ringing in Ears, Nosebleeds, Poor Dental Care, Bleeding Gums and Dentures. NECK: Negative for: Swelling, Pain, Stiffness RESPIRATORY: Negative for: Cough, Blood in Sputum, Shortness of breath, Wheezing, Apnea GASTROINTESTINAL: Negative for: Trouble swallowing, Heartburn, Change in bowel habits, Blood in stool, Dark black stools MUSCULOSKELETAL: Negtive for: Muscle or joint pain, stiffness, Joint swelling NEUROLOGIC/PSYCHIATRIC: Negative for: Weakness, Paralysis, Numbness, Tingling, Tremor, Nervousness or anxiety, Depressed mood, Memory loss SKIN: Negative for: Rash, Itching HEMATOLOGICAL/LYMPHATIC: Negative for: Easy bruising, Easy bleeding ENDOCRINE: Negative for: Heat or Cold Intolerance, Excessive Sweating, Frequent Urination, Frequent Thirst PHYSICAL EXAMINATION: BP 132/80 (BP Site: Left Arm, BP Position: Sitting, BP Cuff Size: Large Adult) Pulse 84 Ht 188 cm (6' 2.02 ) Wt 99.3 kg (218 lb 14.7 oz) BMI 28.10 kg/m General: Well appearing, in no acute distress, speaking in complete sentences. Neck: No jugular venous distention, no carotid bruits, carotids have a normal upstroke, no palpable thyromegaly. Lungs: Clear to auscultation bilaterally, no wheezing or rhonchi. Heart: Irregular rhythm, PMI not displaced, S1, S2 normal, no S3, no S4, no heaves, no rub and no murmur. Abdomen: Soft, nontender, bowel sounds normal, no palpable organomegaly, no bruits. Extremities: No peripheral edema . Grade 2/4 distal pulses bilaterally. Neuro: Oriented to person, place and time, alert, cooperative, gait coordinated. CARDIOVASCULAR MEDICINE TESTING: Electrocardiogram: November 08, 2023 Atrial fibrillation, rate of 84 BPM Cardioversion: 10/15/2023 The patient was placed on a monitor and supplemental oxygen. Adjunct airway equipment, suction and other necessary items were prepared. The patient was sedated with Brevital. Following sedation patient was cardioverted at 360 with conversion to normal sinus rhythm. A post conversion EKG was completed. The patient tolerated the procedure well. Echo: 12/2021 - The left ventricle is normal in size. Left ventricular systolic function is normal. EF = 69 5% (2D biplane) Definity contrast used for endocardial border detection. - The right ventricle is normal in size. Right ventricular systolic function is normal. - The visualized aorta is borderline dilated with a maximal dimension of 3.9 cm. - Exam was compared with the prior echocardiographic exam performed on 03/17/21 ([facility]). Visualized aorta is borderline dilated. Latest Ref Rng 05/20/2023 10/11/2023 WBC 3.70 - 11.00 k/uL 10.29 RBC 4.20 - 6.00 m/uL 4.93 Hemoglobin 13.0 - 17.0 g/dL 14.6 Hematocrit 39.0 - 51.0 % 44.1 MCV 80.0 - 100.0 fL 89.5 MCH 26.0 - 34.0 pg 29.6 MCHC 30.5 - 36.0 g/dL 33.1 RDW-CV 11.5 - 15.0 % 12.9 Platelet Count 150 - 400 k/uL 262 MPV 9.0 - 12.7 fL 10.6 Absolute nRBC <0.01 k/uL <0.01 Glucose 74 - 99 mg/dL 87 BUN 9 - 24 mg/dL 18 Creatinine 0.73 - 1.22 mg/dL 0.71 (L) Sodium 136 - 144 mmol/L 138 Potassium 3.7 - 5.1 mmol/L 5.1 Chloride 97 - 105 mmol/L 103 CO2 22 - 30 mmol/L 26 Anion Gap 9 - 18 mmol/L 9 Calcium 8.5 - 10.2 mg/dL 9.2 eGFR >=60 mL/min/1.73m 102 Cholesterol, Total <200 mg/dL 126 Triglyceride <150 mg/dL 55 HDL Cholesterol >39 mg/dL 43 Non HDL Cholesterol <130 mg/dL 83 Fasting Time hrs 12 VLDL Cholesterol <30 mg/dL 11 TC:HDL Ratio <5.10 2.93 LDL Cholesterol <100 mg/dL 72 LDL:HDL Ratio <2.54 1.67 Magnesium 1.7 - 2.3 mg/dL 2.2 I have personally reviewed the Electrocardiogram. IMPRESSION: Mr. Kohli is a 63 year old male with persistent atrial fibrillation s/p PVI 07/2022, hypertension, dyslipidemia, RA, BPH, DICK (-CPAP). Seen on 10/10 by myself for recurrent atrial fibrillation complaints. Was given Toprol to help with heart rate control and set up for cardioversion that was completed on 10/14. More recently on 10/31 he called the office reporting recurrent atrial fibrillation again. He is symptomatic with this. We discussed rhythm control options. He had a cath in 2021 showing a 30% lesion to the RCA (cath was done after an abnormal coronary CTA). Will do a trial of flecainide to try to achieve rhythm control in the short-term with a goal of potential redo ablation in the near future PLAN AND RECOMMENDATIONS: - Start flecainide 100 mg twice daily -Continue Toprol 50 mg daily for now. If he converts to sinus rhythm he is instructed to go down to 25 mg daily -Continue oral anticoagulation -EKG in 1 week with nurses to assess QRS duration (102 ms). If still in A-fib then we will do a repeat cardioversion. If in sinus rhythm we will continue medication until next appointment -Will try to move up appointment with Dr. Longo to discuss rhythm control I personally interviewed, confirmed and edited the above information as obtained by others. CONTACT INFORMATION: Layla Roger PA-C I spent 35 minutes in the visit, with more than 50% of the total [id number] time of the visit in counseling / coordination of care. documented in this encounter [facility] 11-05-2023 Telephone encounter Note Spoke with patient. Explained Dr. Longo said no additional recommendations at this time and we would see him on Saturday. Patient agreeable. Sravani Jimenez RN [facility] 11-05-2023 Miscellaneous Notes Spoke with patient. Explained Dr. Longo said no additional recommendations at this time and we would see him on Saturday. Patient agreeable. Sravani Jimenez RN Patient calling. Cardioversion on 10/15/23. He is back in A-fib since yesterday at 4 pm. He was sitting at his desk, nothing really going on. Rate is currently 87, has been as high as 132. Bp this morning 128/88 Denies dizziness or lightheadedness. No shortness of breath. No chest discomfort. The only unusual thing is that he woke up with slight swelling in his fingers. No swelling in legs/feet/ankles. He feels like he can do his normal routine this morning. Taking eliquis and metoprolol as ordered. His cardioversion follow up appt scheduled for Tuesday 11/07 with Layla Roger. At this time he declines a sooner appt doesn't feel he needs ER, would like to see what provider recommends He asks if we want to see him sooner? Any other recommendations? Cell, detailed message please GO TO THE EMERGENCY ROOM OR CALL 911 IF: * You develop any new symptoms * Your condition worsens * You are concerned or anxious about your condition for any other reason. If you have any questions, call back. documented in this encounter [facility] 11-01-2023 Telephone encounter Note Patient calling. Cardioversion on 10/15/23. He is back in A-fib since yesterday at 4 pm. He was sitting at his desk, nothing really going on. Rate is currently 87, has been as high as 132. Bp this morning 128/88 Denies dizziness or lightheadedness. No shortness of breath. No chest discomfort. The only unusual thing is that he woke up with slight swelling in his fingers. No swelling in legs/feet/ankles. He feels like he can do his normal routine this morning. Taking eliquis and metoprolol as ordered. His cardioversion follow up appt scheduled for Tuesday 11/07 with Layla Roger. At this time he declines a sooner appt doesn't feel he needs ER, would like to see what provider recommends He asks if we want to see him sooner? Any other recommendations? Cell, detailed message please GO TO THE EMERGENCY ROOM OR CALL 911 IF: * You develop any new symptoms * Your condition worsens * You are concerned or anxious about your condition for any other reason. If you have any questions, call back. [facility] 10-14-2023 Miscellaneous Notes Called and spoke to patient and scheduled his cardioversion with Dr Longo for tomorrow. 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 Follow up scheduled. ----- Message ----- From: Layla Roger PA-C Sent: 10/11/2023 3:12 PM EDT CVN next week --> either location but if at then request Dr Longo. See me post CVN 2'valente weeks afterwards Layla Roger PA-C documented in this encounter [facility] 10-11-2023 Note HNO ID: [id number] Author: LAYLA ROGER PA-C Service: ? Author Type: Physician Television Announcer Type: Progress Notes Filed: 10/11/2023 15:12 Note Text: [facility] Department of Cardiovascular Medicine SECTION OF CARDIAC PACING and ELECTROPHYSIOLOGY OUTPATIENT VISIT DATE October 11, 2023 OUTPATIENT VISIT TYPE ESTABLISHED PRIMARY CARE PHYSICIAN: Tae Martinez ([place]) [address] [place] [address] CHIEF COMPLAINT: Cardiology follow up HISTORY OF PRESENT ILLNESS: Mr. Kohli is a 63 year old male who presents today for follow-up visit. He is a patient of Dr Longo and Dr Garcia with history of persistent atrial fibrillation s/p PVI 07/2022, hypertension, dyslipidemia, RA, BPH, DICK (-CPAP). Was seen in July and was doing well. More recently he messaged the office regarding recurrence of atrial fibrillation. He is here for follow-up Here with his , reports AF started Saturday. HR's ranging 100-130 BPM Noticing increased fatigue Reports no missed doses of Eliquis. He is not managed on beta-leia; review shows he was previously on sotalol but that did not maintain sinus rhythm and he had some bradycardia with that over as well He denies chest pain, shortness of breath, orthopnea, cough, edema, palpitations, PND, lightheadedness or syncope. PAST CARDIAC HISTORY: See above PAST MEDICAL HISTORY Diagnosis Date Atrial fibrillation (HCC) BPH (benign prostatic hyperplasia) Elevated TSH Essential hypertension Meningitis spinal 1964 Osteoarthritis of both knees Other hyperlipidemia Rheumatoid arthritis (HCC) Under observation for suspected coronary artery disease PAST SURGICAL HISTORY Procedure Laterality Date ARTHROSCOPY KNEE DIAGNOSTIC W/WO SYNOVIAL BX SPX Right 2012 SHX CARDIAC RADIOFREQUENCY ABLATION 07/18/2022 PVI/PWI (Afib) TONSILLECTOMY HX SOCIAL HISTORY Social History Tobacco Use Smoking status: Never Smokeless tobacco: Never Vaping Use Vaping Use: Never used Substance Use Topics Alcohol use: Yes Comment: rare Drug use: Never FAMILY HISTORY Problem Relation Age of Onset Coronary Artery Disease Father 57 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 apixaban (ELIQUIS) 5 mg tab(s) Take 1 tablet by mouth two times a day. nitroglycerin sublingual (NITROQUICK) 0.4 mg SL tablet Dissolve 1 tablet under the tongue every 5 minutes as needed for chest pain. If no pain relief call 911. rosuvastatin (CRESTOR) 40 mg tablet take 1 tablet at bedtime Cholecalciferol, Vitamin D3, 50 mcg (2,000 unit) cap Take 2,000 Units by mouth once daily. Zinc 50 mg tab Take 1 tablet by mouth once daily. benazepril (LOTENSIN) 20 mg tablet Take 20 mg by mouth once daily. MEN'S MULTI-VITAMIN ORAL Take by mouth once daily. Coenzyme Q10 200 mg cap Take 200 mg by mouth once daily. glucosamine/chondr prieto A sod (OSTEO BI-FLEX ORAL) Take 2 tablets by mouth one time only. S-Adenosylmethionine 400 mg tab Take 400 mg by mouth once daily. REVIEW OF SYSTEMS: + Findings in bold GENERAL: Negative for: Weight loss or gain, Fever or Chills, Weakness and Sleep difficulties. HEENT: Negative for: Headache, Impaired Vision, Glasses, Hearing Impairment, Ringing in Ears, Nosebleeds, Poor Dental Care, Bleeding Gums and Dentures. NECK: Negative for: Swelling, Pain, Stiffness RESPIRATORY: Negative for: Cough, Blood in Sputum, Shortness of breath, Wheezing, Apnea GASTROINTESTINAL: Negative for: Trouble swallowing, Heartburn, Change in bowel habits, Blood in stool, Dark black stools MUSCULOSKELETAL: Negtive for: Muscle or joint pain, stiffness, Joint swelling NEUROLOGIC/PSYCHIATRIC: Negative for: Weakness, Paralysis, Numbness, Tingling, Tremor, Nervousness or anxiety, Depressed mood, Memory loss SKIN: Negative for: Rash, Itching HEMATOLOGICAL/LYMPHATIC: Negative for: Easy bruising, Easy bleeding ENDOCRINE: Negative for: Heat or Cold Intolerance, Excessive Sweating, Frequent Urination, Frequent Thirst PHYSICAL EXAMINATION: BP 116/70 (BP Site: Left Arm, BP Position: Sitting, BP Cuff Size: Regular Adult) Pulse 109 Ht 188 cm (6' 2.02 ) Wt 100.2 kg (220 lb 14.4 oz) BMI 28.35 kg/m? General: Well appearing, in no acute distress, speaking in complete sentences. Neck: No jugular venous distention, no carotid bruits, carotids have a normal upstroke, no palpable thyromegaly. Lungs: Clear to auscultation bilaterally, no wheezing or rhonchi. Heart: Irregular rhythm, tachycardia, PMI not displaced, S1, S2 normal, no S3, no S4, no heaves, no rub and no murmur. Abdomen: Soft, nontender, bowel sounds normal, no palpable organomegaly, no bruits. Extremities: No peripheral edema . Gr (more content not included)... [facility] 10-07-2023 Miscellaneous Notes I reviewed the message since patient heart rate is 100 or less Recommendation: Schedule him for EP ROSE MARIE visit or rose marie visit, if none available then ECG to confirm the arrhythmia if out of rhythm then we can schedule for a cardioversion, if he has been compliant with apixaban in the past three weeks with no missed doses, if missed two or more doses in a row then needs a TANVI. thank you Johnna Victoria APRN.TECHNICAL SALES SUPPORT SPECIALIST Spoke with patient. States he has been in Afib since last evening around 9pm. No symptoms at all, rate average 100. Has not checked his BP since. States he hasn't been in Afib for approx. 1 year. Aware of symptoms to go to emergency room. Will notify Dr. Longo of current epidose and condition. Follow up not scheduled until February with Dr. Longo. Pt calling Dr Longo and stated that last evening pt started feeling that he is in Afib. Pt stated that he has his apple watch and it is telling him that he is in Afib with HR of 105 during this call (1:58pm). Pt denied CP, SOB, light headedness/ dizziness and blurry vision. Pt stated that he is just calling to give Dr Longo an update. Pt stated that he has been taking his medication. Last dose was this morning: apixaban (ELIQUIS) 5 mg tab(s) 180 tablet 3 05/17/2023 -- Sig: Take 1 tablet by mouth two times a day. Pt advised to please call 911/seek emergent treatment.for any emergent symptoms - such as chest pain, shortness of breath, distress, severe abdominal pain, severe lightheadedness/dizziness, other concerning symptoms.Pt verbalized understanding. Please call pt for further questions/ recommendations. Last OV: 08/08/23 Next OV: 02/13/24 Please do not send messages back to this triage nurse. Please route to your assigned pool for best patient care. documented in this encounter [facility] 08-08-2023 Note HNO ID: [id number] Author: JESSE LONGO MD Service: ? Author Type: Physician Type: Progress Notes Filed: 08/08/2023 10:10 Note Text: [facility] SECTION OF REGIONAL CARDIOLOGY OUTPATIENT VISIT DATE August 08, 2023 OUTPATIENT VISIT TYPE ESTABLISHED PRIMARY CARE PHYSICIAN: Tae Martinez ([facility]) [address] [place] [address] CHIEF COMPLAINT: afib HISTORY OF PRESENT ILLNESS: Mr. Kohli is a 62 year old male patient of Dr Garcia with history of persistent atrial fibrillation (s/p PVI 07/2022, recurrence of AF in October, sotalol DC'ed AND amiodarone initiated, s/p DCCV, .Other past medical history includes hypertension, hyperlipidemia, RA, BPH, DICK (no CPAP). Was last seen in November 2022 in and had remained in sinus rhythm. IMPRESSION: Persistent afib: S/p PVI and DCCV during late blanking period. Remained in sinus rhythm. Off amiodarone. He is interested in discussing watchman procedure for alternative stroke prevention. He would like to discuss this in 6 months. F/u in 6 months. CAD: Stable. No new angina. PLAN AND RECOMMENDATIONS: Persistent afib: S/p PVI and DCCV during late blanking period. Remained in sinus rhythm. Off amiodarone. He is interested in discussing watchman procedure for alternative stroke prevention. He would like to discuss this in 6 months. F/u in 6 months. CAD: Stable. No new angina. PHYSICAL EXAMINATION: There were no vitals taken for this visit. HEENT: normocephalic, EOMI Heart: regular rhythm Lungs: clear to auscultation Abdomen: bowel sounds present Extremities: no edema Musculoskeletal: chest wall nontender Neurological: alert and oriented Psychiatric: appropriate and cooperative Skin: no rash, cellulitis or lesions appreciated CARDIOVASCULAR MEDICINE TESTING: I have personally reviewed ECG Last EKG Result Conclusion ECG COMPLETE Collected: 01/17/2023 8:35 AM (Final result) Impression: SINUS BRADYCARDIA LEFT AXIS DEVIATION ABNORMAL ECG Confirmed by NUSRAT LANDEROS, AJ W ([id number]) on 01/27/2023 1:04:28 PM PAST CARDIAC HISTORY: See below PAST MEDICAL HISTORY Diagnosis Date Atrial fibrillation (HCC) BPH (benign prostatic hyperplasia) Elevated TSH Essential hypertension Meningitis spinal 1964 Osteoarthritis of both knees Other hyperlipidemia Rheumatoid arthritis (HCC) Under observation for suspected coronary artery disease PAST SURGICAL HISTORY Procedure Laterality Date ARTHROSCOPY KNEE DIAGNOSTIC W/WO SYNOVIAL BX SPX Right 2013 SHX CARDIAC RADIOFREQUENCY ABLATION 07/18/2022 PVI/PWI (Afib) TONSILLECTOMY HX Social History Tobacco Use Smoking status: Never Smokeless tobacco: Never Vaping Use Vaping Use: Never used Substance Use Topics Alcohol use: Yes Comment: rare Drug use: Never FAMILY HISTORY Problem Relation Age of Onset Coronary Artery Disease Father 57 smoker; 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 Emphysema Paternal Grandfather ALLERGIES Allergen Reactions Penicillins Rash Sulfa (Sulfonamide * Swelling CURRENT MEDICATIONS: ezetimibe (ZETIA) 10 mg tablet Take 1 tablet by mouth once daily. apixaban (ELIQUIS) 5 mg tab(s) Take 1 tablet by mouth two times a day. nitroglycerin sublingual (NITROQUICK) 0.4 mg SL tablet Dissolve 1 tablet under the tongue every 5 minutes as needed for chest pain. If no pain relief call 911. rosuvastatin (CRESTOR) 40 mg tablet take 1 tablet at bedtime Cholecalciferol, Vitamin D3, 50 mcg (2,000 unit) cap Take 2,000 Units by mouth once daily. Zinc 50 mg tab Take 1 tablet by mouth once daily. benazepril (LOTENSIN) 20 mg tablet Take 20 mg by mouth once daily. MEN'S MULTI-VITAMIN ORAL Take by mouth once daily. Coenzyme Q10 200 mg cap Take 200 mg by mouth once daily. glucosamine/chondr prieto A sod (OSTEO BI-FLEX ORAL) Take 2 tablets by mouth one time only. S-Adenosylmethionine 400 mg tab Take 400 mg by mouth once daily. [facility] 07-24-2023 Evaluation note Encounter Date Diagnosis Assessment Notes Jul, Primary hypertension (ICD-10 - I10) Room n House Other 11-22-2023 Evaluation note* Encounter Date Diagnosis Assessment Notes Treatment Notes Treatment Clinical Notes May, Primary hypertension (ICD-10 - I10) This patient is instructed to consume a healthy, low-fat, low-salt diet. They are also encouraged to continue exercise to achieve/maintain a normal BMI. Patient is instructed on home BP measurements: - rest for 5 minutes w/o talking- positioned w/ feet on floor and arm supported- average best 2/3 readings w/ goal < 135/85 May, Paroxysmal atrial fibrillation (ICD-10 - I48.0) This patient is in NSR or rate controlled. This patient is anticoagulated to prevent thromboembolic events. They are maintaining regular scheduled appts with their full stack php developer. No bleeding complications May, DICK (obstructive sleep apnea) (ICD-10 - G47.33) This patient is aware of the benefits associated with DICK: With continued use, the patient reduces the risk for MO, CVA, HTN, cardiac dysrhythmias and sudden cardiac deaths.The patient is also aware of the association between DICK and morning headaches, daytime somnolence, fatigue and obesity Noncompliant Aware that maintenance of NSR is very dependent on treatment of DICK May, Elevated cholesterol (ICD-10 - E78.00) Instructed on diet and exercise with continued statin therapy.Discussed the beneficial effects of lowering cholesterol in reducing the risk for cerebrovascular and cardiovascular disease. May, FRANKLIN (generalized anxiety disorder) (ICD-10 - F41.1) Stable COntinue healthy diet and exercise May, Subclinical hypothyroidism (ICD-10 - E03.8) Monitor yearly NO treatment unless TSH > 8 or symptomatic Room n House Other 11-03-2023 NoteHNO ID: [id number] Author: Carlos Garcia MD Service: ? Author Type: Physician Type: Progress Notes Filed: 05/17/2023 9:17 AM Note Text: [facility] Department of Cardiovascular Medicine SECTION OF CARDIOLOGY OUTPATIENT VISIT DATE May 17 2023 OUTPATIENT VISIT TYPE ESTABLISHED CHIEF COMPLAINT: Cardiovascular follow-up HISTORY OF PRESENT ILLNESS: Mr. Kohli is a pleasant 62 year old male here for cardiovascular follow-up. In interim, No CP/sob/major bleeding/leg swelling. The following portions of the patient's history were reviewed and updated as appropriate, allergies, current medications, past medical, social, surgical, and family history and problem list. I have personally interviewed, confirmed and edited the above information if obtained by others. CURRENT MEDICATIONS: rosuvastatin (CRESTOR) 40 mg tablet take 1 tablet at bedtime Cholecalciferol, Vitamin D3, 50 mcg (2,000 unit) cap Take 2,000 Units by mouth once daily. Zinc 50 mg tab Take 1 tablet by mouth once daily. benazepril (LOTENSIN) 20 mg tablet Take 20 mg by mouth once daily. MEN'S MULTI-VITAMIN ORAL Take by mouth once daily. Coenzyme Q10 200 mg cap Take 200 mg by mouth once daily. glucosamine/chondr prieto A sod (OSTEO BI-FLEX ORAL) Take 2 tablets by mouth one time only. S-Adenosylmethionine 400 mg tab Take 400 mg by mouth once daily. apixaban (ELIQUIS) 5 mg tab(s) Take 1 tablet by mouth two times a day. nitroglycerin sublingual (NITROQUICK) 0.4 mg SL tablet Dissolve 1 tablet under the tongue every 5 minutes as needed for chest pain. If no pain relief call 911. Physical Exam BP 124/78 (BP Site: Left Arm, BP Position: Sitting, BP Cuff Size: Large Adult) Pulse (!) 57 Wt 97.5 kg (215 lb) SpO2 95% BMI 27.60 kg/m? Gen: alert, no acute distress, with HEENT: normocephalic, atraumatic, no rinorrhea, no congestion, normal hearing, EOMI, no eye discharge Heart: no murmurs, S1/S2+, regular rate and rhythm Lungs: no wheezing, rales, symmetric expansion, nonlabored Abdomen: soft, nontender, nondistended Musculoskeletal: no edema, nontender Neurological: no focal deficits, alert, oriented Psychatric: cooperative, appropriate Pertinent Diagnostics/Labs/Data reviewed (ECG and echo listed personally reviewed) and include: 12/19/21 Coronary angiogram: LVEDP 22, LM normal; LAD/Cx/RCA ectatic; mid-distal LAD 30-40% 11/28/21 CCTA: short LM no disesease, mLAD 70-90%, mCx 50-70%, dRCA <25%; ascending aorta 3.8cm 12/13/21 TTE: LVEF69%, normal RVSF/size, normal LA/RA size, 1+ TR, 1+ IA, mid ascending 3.9cm 01/19/2021 TTE: LVEF 55-60%, RVSP 35-45mmHg, severe biatrial enlargement, mod TR, RV moderately dilated, mild-mod MR, mild LVH, Pharmacologic MPI 01/19/2021: partial reversibility in inferior wall, fixed defect in apex, LVEF 49%, 05/18/22: LDL 75, TG 77, HDL 40, TCC 130 05/12/2021: LDL 107, HDL 44, TC 164, TG 65 12/2020: HDL 40, TG 42, LDL 86 Hgb 14.6 ECG 08/22/2021: Afib, left axis deviation ECG 05/10/2021: sinus bradycardia, left axis deviation, inferior and septal infarct pattern ECG 03/03/21 Afib, HR 92bpm, left axis deviation 03/17/2021: TANVI: LVEF 60% Assessment AND Plan Coronary Artery Disease Coronary angiogram performed after abnormal CCTA and NM Pharm stress MPI (asymptomatic prior) Chronic Atrial Fibrillation TANVI/DCCV 03/17/2021 (200J to 60bpm) then recurrence Sotalol and repeat DCCV 08/22/2021 PVI/PWI ablation 07/18/2022 DCCV for Afib 11/05/22 Other: HTN, HLD, sleep apnea (not on PAP therapy), OA, RA, BPH, hx of abnl TSH Impression: Initial visit on 03/03/2021: AF discussion, OAC discussion, CAD discussion. 10/2021: Extremely active otherwise. CCTA then subsequent coronary angiogram. 05/11/22: Doing well. Risk factor modification 05/18/23: Doing well. Repeat lipids Plan: Rosuvastatin 40, apixaban 5mg bid, benazepril 20mg every day Repeat Lipids Monitor Sx RTC 2 years, can repeat echocardiogram after that Thank you, CONTACT INFORMATION: Carlos Garcia M.D. Cardiovascular Medicine Staff [facility] Mail Code [id number] [facility] [place] [address] [facility] History of Present illness Narrative* Carlos Garcia MD - 05/17/2023 9:00 AM EDT Images from the original note were not included. [facility] Department of Cardiovascular Medicine SECTION OF CARDIOLOGY OUTPATIENT VISIT DATE May 17 2023 OUTPATIENT VISIT TYPE ESTABLISHED CHIEF COMPLAINT: Cardiovascular follow-up HISTORY OF PRESENT ILLNESS: Mr. Kohli is a pleasant 62 year old male here for cardiovascular follow-up. In interim, No CP/sob/major bleeding/leg swelling. The following portions of the patient's history were reviewed and updated as appropriate, allergies, current medications, past medical, social, surgical, and family history and problem list. I have personally interviewed, confirmed and edited the above information if obtained by others. CURRENT MEDICATIONS: rosuvastatin (CRESTOR) 40 mg tablet take 1 tablet at bedtime Cholecalciferol, Vitamin D3, 50 mcg (2,000 unit) cap Take 2,000 Units by mouth once daily. Zinc 50 mg tab Take 1 tablet by mouth once daily. benazepril (LOTENSIN) 20 mg tablet Take 20 mg by mouth once daily. MEN'S MULTI-VITAMIN ORAL Take by mouth once daily. Coenzyme Q10 200 mg cap Take 200 mg by mouth once daily. glucosamine/chondr prieto A sod (OSTEO BI-FLEX ORAL) Take 2 tablets by mouth one time only. S-Adenosylmethionine 400 mg tab Take 400 mg by mouth once daily. apixaban (ELIQUIS) 5 mg tab(s) Take 1 tablet by mouth two times a day. nitroglycerin sublingual (NITROQUICK) 0.4 mg SL tablet Dissolve 1 tablet under the tongue every 5 minutes as needed for chest pain. If no pain relief call 911. Physical Exam BP 124/78 (BP Site: Left Arm, BP Position: Sitting, BP Cuff Size: Large Adult) Pulse (!) 57 Wt 97.5 kg (215 lb) SpO2 95% BMI 27.60 kg/m Gen: alert, no acute distress, with HEENT: normocephalic, atraumatic, no rinorrhea, no congestion, normal hearing, EOMI, no eye discharge Heart: no murmurs, S1/S2+, regular rate and rhythm Lungs: no wheezing, rales, symmetric expansion, nonlabored Abdomen: soft, nontender, nondistended Musculoskeletal: no edema, nontender Neurological: no focal deficits, alert, oriented Psychatric: cooperative, appropriate Pertinent Diagnostics/Labs/Data reviewed (ECG and echo listed personally reviewed) and include: 12/19/21 Coronary angiogram: LVEDP 22, LM normal; LAD/Cx/RCA ectatic; mid-distal LAD 30-40% 11/28/21 CCTA: short LM no disesease, mLAD 70-90%, mCx 50-70%, dRCA <25%; ascending aorta 3.8cm 12/13/21 TTE: LVEF69%, normal RVSF/size, normal LA/RA size, 1+ TR, 1+ IA, mid ascending 3.9cm 01/19/2021 TTE: LVEF 55-60%, RVSP 35-45mmHg, severe biatrial enlargement, mod TR, RV moderately dilated, mild-mod MR, mild LVH, Pharmacologic MPI 01/19/2021: partial reversibility in inferior wall, fixed defect in apex, LVEF 49%, 05/18/22: LDL 75, TG 77, HDL 40, TCC 130 05/12/2021: LDL 107, HDL 44, TC 164, TG 65 12/2020: HDL 40, TG 42, LDL 86 Hgb 14.6 ECG 08/22/2021: Afib, left axis deviation ECG 05/10/2021: sinus bradycardia, left axis deviation, inferior and septal infarct pattern ECG 03/03/21 Afib, HR 92bpm, left axis deviation 03/17/2021: TANVI: LVEF 60% Assessment & Plan Coronary Artery Disease Coronary angiogram performed after abnormal CCTA and NM Pharm stress MPI (asymptomatic prior) Chronic Atrial Fibrillation TANVI/DCCV 03/17/2021 (200J to 60bpm) then recurrence Sotalol and repeat DCCV 08/22/2021 PVI/PWI ablation 07/18/2022 DCCV for Afib 11/05/22 Other: HTN, HLD, sleep apnea (not on PAP therapy), OA, RA, BPH, hx of abnl TSH Impression: Initial visit on 03/03/2021: AF discussion, OAC discussion, CAD discussion. 10/2021: Extremely activeotherwise. CCTA then subsequent coronary angiogram. 05/11/22: Doing well. Risk factor modification 05/18/23: Doing well. Repeat lipids Plan: Rosuvastatin 40, apixaban 5mg bid, benazepril 20mg every day Repeat Lipids Monitor Sx RTC 2 years, can repeat echocardiogram after that Thank you, CONTACT INFORMATION: Carlos Garcia M.D. Cardiovascular Medicine Staff [facility] Mail Code [id number] [facility] [place] [address] documented in this encounterOhiohealth [facility]10-12-2023 Miscellaneous Notes* Telephone Encounter - Gisell Anglin MA - 04/25/2023 10:49 AM EDT Received request for refill of the following medications: Requested Prescriptions Pending Prescriptions Disp Refills rosuvastatin (CRESTOR) 40 mg tablet [Pharmacy Med Name: ROSUVASTATIN TAB 40MG] 90 tablet 3 Sig: take 1 tablet at bedtime Patient requested a 90 day refill. Pharmacy verified and updated accordingly. Patient was last seen in cardiology office: 01/17/2023 Dr. Longo. Upcoming appointment scheduled: 05/17/2023. Labs: Hemoglobin (g/dL) Date Value 11/05/2022 13.4 08/14/2021 14.1 Hematocrit (%) Date Value 11/05/2022 40.4 08/14/2021 41.9 WBC (k/uL) Date Value 11/05/2022 6.26 08/14/2021 9.89 Platelet Count (k/uL) Date Value 11/05/2022 233 08/14/2021 258 Creatinine Date Value Ref Range Status 11/05/2022 0.61 (L) 0.73 - 1.22 mg/dL Final 07/13/2022 0.73 0.73 - 1.22 mg/dL Final documented in this encounterOhiohealth [facility]07-06-2023 NoteHNO ID: [id number] Author: Jesse Longo MD Service: ? Author Type: Physician Type: Progress Notes Filed: 01/17/2023 8:50 AM Note Text: [facility] SECTION OF REGIONAL CARDIOLOGY OUTPATIENT VISIT DATE January 17, 2023 OUTPATIENT VISIT TYPE ESTABLISHED PRIMARY CARE PHYSICIAN: Tae Martinez ([place]) [address] [place] [address] CHIEF COMPLAINT: Post PVI HISTORY OF PRESENT ILLNESS: Mr. Kohli is a 62 year old male patient of Dr Garcia with persistent afib , HTN and underwent PVI + PWI in 07/2022. Was on adjunct amiodarone following some early afib in the blanking period that required DCCV. Now remained in sinus rhythm and doing well. IMPRESSION: Persistent AF: S/pPVI + PWI. In SR. Will d/c amiodarone today. F/u in 6 months. PLAN AND RECOMMENDATIONS: Persistent AF: S/pPVI + PWI. In SR. Will d/c amiodarone today. F/u in 6 months. PHYSICAL EXAMINATION: BP 126/82 Pulse (!) 50 Wt 97.1 kg (214 lb) BMI 27.48 kg/m? HEENT: normocephalic, EOMI Heart: regular rhythm Lungs: clear to auscultation Abdomen: bowel sounds present Extremities: no edema Musculoskeletal: chest wall nontender Neurological: alert and oriented Psychiatric: appropriate and cooperative Skin: no rash, cellulitis or lesions appreciated CARDIOVASCULAR MEDICINE TESTING: I have personally reviewed ECG Last EKG Result Conclusion ECG COMPLETE Collected: 01/17/2023 8:35 AM (Preliminary result) Impression: SINUS BRADYCARDIA LEFT AXIS DEVIATION ABNORMAL ECG PAST CARDIAC HISTORY: See below PAST MEDICAL HISTORY Diagnosis Date Atrial fibrillation (HCC) BPH (benign prostatic hyperplasia) Elevated TSH Essential hypertension Meningitis spinal 1964 Osteoarthritis of both knees Other hyperlipidemia Rheumatoid arthritis (HCC) Under observation for suspected coronary artery disease PAST SURGICAL HISTORY Procedure Laterality Date ARTHROSCOPY KNEE DIAGNOSTIC W/WO SYNOVIAL BX SPX Right 2013 [facility] CARDIAC RADIOFREQUENCY ABLATION 07/18/2022 PVI/PWI (Afib) TONSILLECTOMY HX Social History Tobacco Use Smoking status: Never Smokeless tobacco: Never Vaping Use Vaping Use: Never used Substance Use Topics Alcohol use: Yes Comment: rare Drug use: Never FAMILY HISTORY Problem Relation Age of Onset Coronary Artery Disease Father 57 smoker; 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 Emphysema Paternal Grandfather ALLERGIES Allergen Reactions Penicillins Rash Sulfa (Sulfonamide * Swelling CURRENT MEDICATIONS: rosuvastatin (CRESTOR) 40 mg tabletTAKE 1 TABLET AT BEDTIMEDisp: 90 tabletRfl: 3 apixaban (ELIQUIS) 5 mg tab(s)Take 1 tablet by mouth twice daily.Disp: 60 tabletRfl: 5 Cholecalciferol, Vitamin D3, 50 mcg (2,000 unit) capTake 2,000 Units by mouth once daily.Disp: Rfl: Zinc 50 mg tabTake 1 tablet by mouth once daily.Disp: Rfl: nitroglycerin sublingual (NITROQUICK) 0.4 mg SL tabletDissolve 1 tablet under the tongue every 5 minutes as needed for chest pain. If no pain relief call 911.Disp: 25 tabletRfl: 3 benazepril (LOTENSIN) 20 mg tabletTake 20 mg by mouth once daily.Disp: Rfl: MEN'S MULTI-VITAMIN ORALTake by mouth once daily.Disp: Rfl: Coenzyme Q10 200 mg capTake 200 mg by mouth once daily.Disp: Rfl: glucosamine/chondr prieto A sod (OSTEO BI-FLEX ORAL)Take 2 tablets by mouth one time only.Disp: Rfl: S-Adenosylmethionine 400 mg tabTake 400 mg by mouth once daily.Disp: Rfl:[facility] History of Present illness Narrative* Jesse Longo MD - 01/17/2023 8:45 AM EDT Images from the original note were not included. [facility] SECTION OF REGIONAL CARDIOLOGY OUTPATIENT VISIT DATE January 17, 2023 OUTPATIENT VISIT TYPE ESTABLISHED PRIMARY CARE PHYSICIAN: Tae Martinez (Tosha) [address] [place], [place] [id number] CHIEF COMPLAINT: Post PVI HISTORY OF PRESENT ILLNESS: Mr. Kohli is a 62 year old male patient of Dr Garcia with persistent afib , HTN and underwent PVI + PWI in 07/2022. Was on adjunct amiodarone following some early afib in the blanking period that required DCCV. Now remained in sinus rhythm and doing well. IMPRESSION: Persistent AF: S/pPVI + PWI. In SR. Will d/c amiodarone today. F/u in 6 months. PLAN AND RECOMMENDATIONS: Persistent AF: S/pPVI + PWI. In SR. Will d/c amiodarone today. F/u in 6 months. PHYSICAL EXAMINATION: BP 126/82 Pulse (!) 50 Wt 97.1 kg (214 lb) BMI 27.48 kg/m HEENT: normocephalic, EOMI Heart: regular rhythm Lungs: clear to auscultation Abdomen: bowel sounds present Extremities: no edema Musculoskeletal: chest wall nontender Neurological: alert and oriented Psychiatric: appropriate and cooperative Skin: no rash, cellulitis or lesions appreciated CARDIOVASCULAR MEDICINE TESTING: I have personally reviewed ECG Last EKG Result Conclusion ECG COMPLETE Collected: 01/17/2023 8:35 AM (Preliminary result) Impression: SINUS BRADYCARDIA LEFT AXIS DEVIATION ABNORMAL ECG PAST CARDIAC HISTORY: See below PAST MEDICAL HISTORY Diagnosis Date Atrial fibrillation (HCC) BPH (benign prostatic hyperplasia) Elevated TSH Essential hypertension Meningitis spinal 1964 Osteoarthritis of both knees Other hyperlipidemia Rheumatoid arthritis (HCC) Under observation for suspected coronary artery disease PAST SURGICAL HISTORY Procedure Laterality Date ARTHROSCOPY KNEE DIAGNOSTIC W/WO SYNOVIAL BX SPX Right 2013 [facility] CARDIAC RADIOFREQUENCY ABLATION 07/18/2022 PVI/PWI (Afib) TONSILLECTOMY HX Social History Tobacco Use Smoking status: Never Smokeless tobacco: Never Vaping Use Vaping Use: Never used Substance Use Topics Alcohol use: Yes Comment: rare Drug use: Never FAMILY HISTORY Problem Relation Age of Onset Coronary Artery Disease Father 57 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; 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 If no pain relief call 911.^Disp: 25 tablet^Rfl: 3 benazepril (LOTENSIN) 20 mg tablet^Take 20 mg by mouth once daily.^Disp: ^Rfl: MEN'S MULTI-VITAMIN ORAL^Take by mouth once daily.^Disp: ^Rfl: Coenzyme Q10 200 mg cap^Take 200 mg by mouth once daily.^Disp: ^Rfl: glucosamine/chondr prieto A sod (OSTEO BI-FLEX ORAL)^Take 2 tablets by mouth one time only.^Disp: ^Rfl: S-Adenosylmethionine 400 mg tab^Take 400 mg by mouth once daily.^Disp: ^Rfl: documented in this encounterOhiohealth [facility]05-16-2023 Miscellaneous Notes* Telephone Encounter - Liseth Christensen APRN.CNP - 11/27/2022 7:49 AM EDT This was filled 3 months ago for 3 months. Patient just needs to call pharmacy for refill. Liseth Christensen APRN.TIFFANIE * Telephone Encounter - Radha Arceo MA - 11/26/2022 8:26 AM EDT Usha 11/01/22 Nov 01/17/23 documented in this encounterOhiohealth [facility]05-03-2023 History of Present illness Narrative* Kareen Bruner APRN.CNP - 11/14/2022 11:35 AM EDT Images from the original note were not included. [facility] Department of Cardiovascular Medicine SECTION OF CARDIAC PACING and ELECTROPHYSIOLOGY OUTPATIENT VISIT DATE November 14, 2022 OUTPATIENT VISIT TYPE ESTABLISHED PRIMARY CARE PHYSICIAN: Tae Martinez (T[place]) [address] [place] [address] REFERRING PHYSICIAN: No referring provider defined for this encounter. CHIEF COMPLAINT: follow up s/p [facility] HISTORY OF PRESENT ILLNESS: Mr. Kohli is a 62 year old male who presents today for a cardiovascular medicine follow up s/p cardioversion on 11/05/[address] Brooks. He is an established patient of Dr. Garcia and Dr. Longo for history of persistent atrial fibrillation (s/p PVI 07/2022, recurrence of AF in October, sotalol DC'ed & amiodarone initiated, s/p DCCV, [id number] 1: hypertension), preserved LV systolic function (Echo 12/13/21: 69%). Other past medical history includes hypertension, hyperlipidemia, RA, BPH,DICK (no CPAP). Doing well today, in NSR w/o any recurrence of AF. 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 He denies chest pain, shortness of breath, orthopnea, cough, edema, palpitations, PND, lightheadedness or syncope. PAST CARDIAC HISTORY: See Below PAST MEDICAL HISTORY Diagnosis Date Atrial fibrillation (HCC) BPH (benign prostatic hyperplasia) Elevated TSH Essential hypertension Meningitis spinal 1964 Osteoarthritis of both knees Other hyperlipidemia Rheumatoid arthritis (HCC) Under observation for suspected coronary artery disease PAST SURGICAL HISTORY Procedure Laterality Date ARTHROSCOPY KNEE DIAGNOSTIC W/WO SYNOVIAL BX SPX Right 2012 [facility]X CARDIAC RADIOFREQUENCY ABLATION 07/18/2022 PVI/PWI (Afib) TONSILLECTOMY HX SOCIAL HISTORY Social History Tobacco Use Smoking status: Never Smokeless tobacco: Never Vaping Use Vaping Use: Never used Substance Use Topics Alcohol use: Yes Comment: rare Drug use: Never FAMILY HISTORY Problem Relation Age of Onset Coronary Artery Disease Father 57 smoker; 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 Emphysema Paternal Grandfather ALLERGIES: ALLERGIES Allergen Reactions Penicillins Rash Sulfa (Sulfonamide * Swelling MEDICATIONS: amiodarone (PACERONE) 200 mg tablet^Take 1 tablet by mouth once daily.^Disp: 30 tablet^Rfl: 3 rosuvastatin (CRESTOR) 40 mg tablet^TAKE 1 TABLET AT BEDTIME^Disp: 90 tablet^Rfl: 3 apixaban (ELIQUIS) 5 mg tab(s)^Take 1 tablet by mouth twice daily.^Disp: 60 tablet^Rfl: 5 Cholecalciferol, Vitamin D3, 50 mcg (2,000 unit) cap^Take 2,000 Units by mouth once daily.^Disp: ^Rfl: Zinc 50 mg tab^Take 1 tablet by mouth once daily.^Disp: ^Rfl: nitroglycerin sublingual (NITROQUICK) 0.4 mg SL tablet^Dissolve 1 tablet under the tongue every 5 minutes as needed for chest pain. If no pain relief call 911.^Disp: 25 tablet^Rfl: 3 benazepril (LOTENSIN) 20 mg tablet^Take 20 mg by mouth once daily.^Disp: ^Rfl: MEN'S MULTI-VITAMIN ORAL^Take by mouth once daily.^Disp: ^Rfl: Coenzyme Q10 200 mg cap^Take 200 mg by mouth once daily.^Disp: ^Rfl: glucosamine/chondr prieto A sod (OSTEO BI-FLEX ORAL)^Take 2 tablets by mouth one time only.^Disp: ^Rfl: S-Adenosylmethionine 400 mg tab^Take 400 mg by mouth once daily.^Disp: ^Rfl: REVIEW OF SYSTEMS: GENERAL: Negative for: Weight loss or gain, Fever or Chills, Weakness and Sleep difficulties. HEENT: Negative for: Headache, Impaired Vision, Glasses, Hearing Impairment, Ringing in Ears, Nosebleeds, Poor dental care, Bleeding Gums, Dentures NECK: Negative for: Swelling, Pain, Stiffness RESPIRATORY: Negative for: Cough, Blood in Sputum, Shortness of breath, Wheezing, Apnea GASTROINTESTINAL: Negative for: Trouble swallowing, Heartburn, Change in bowel habits, Blood in stool, Dark black stools MUSCULOSKELETAL: Negative for: Muscle or joint pain, Stiffness , Joint swelling NEUROLOGIC/PSYCHIATRIC: Negative for: Weakness, Paralysis, Numbness, Tingling, Tremor, Nervousness,Depressed mood, Memory loss SKIN: Negative for: Rashes, Itching HEMATOLOGICAL/LYMPHATIC: Negative for: Easy bruising , Easy bleeding ENDOCRINE: Negative for: Heat or cold intolerance, Excessive sweating, Frequent urination, Frequentthirst PHYSICAL EXAMINATION: BP 119/80 Pulse 64 Wt 99.3 kg (219 lb) SpO2 96% BMI 28.12 kg/m General: Well appearing, in no acute distress. Skin: No clubbing, no cyanosis. Eyes: Extra ocular movements intact Oropharynx: Teeth in good repair. Neck: No jugular venous distention, no carotid bruits, carotids have a normal upstroke, no palpablethyromegaly. Lungs: Clear to auscultation bilaterally, no wheezing or rhonchi. Heart: Regular rhythm, PMI not displaced, S1, S2 normal, no S3, no S4, no heaves, no rub and no murmur. Abdomen: Soft, nontender, bowel sounds normal, no palpable organomegaly, no bruits. Extremities: No peripheral edema . Grade 2/4 distal pulses bilaterally. Neuro: Oriented to person, place and time, alert, cooperative, gait coordinated. CARDIOVASCULAR MEDICINE TESTING: Labs: Component Latest Ref Rng & Units 11/05/2022 Glucose 74 - 99 mg/dL 96 BUN 9 - 24 mg/dL 16 Creatinine 0.73 - 1.22 mg/dL 0.61 (L) Sodium 136 - 144 mmol/L 137 Potassium 3.7 - 5.1 mmol/L 4.1 Chloride 97 - 105 mmol/L 105 CO2 22 - 30 mmol/L 23 Anion Gap 9 - 18 mmol/L 9 Calcium 8.5 - 10.2 mg/dL 9.1 eGFR >=60 mL/min/1.73m 107 Component Latest Ref Rng & Units 11/05/2022 WBC 3.70 - 11.00 k/uL 6.26 RBC 4.20 - 6.00 m/uL 4.58 Hemoglobin 13.0 - 17.0 g/dL 13.4 Hematocrit 39.0 - 51.0 % 40.4 MCV 80.0 - 100.0 fL 88.2 MCH 26.0 - 34.0 pg 29.3 MCHC 30.5 - 36.0 g/dL 33.2 RDW-CV 11.5 - 15.0 % 13.4 Platelet Count 150 - 400 k/uL 233 MPV 9.0 - 12.7 fL 10.3 Absolute nRBC <0.01 k/uL <0.01 Component Latest Ref Rng & Units 03/03/2021 TSH 0.270 - 4.200 uU/mL 3.720 EC11/14/22 Echocardiogram: 12/21/22 CONCLUSIONS: - Technically difficult exam due to body habitus. - Exam indication: Sustained atrial fibrillation - The left ventricle is normal in size. Left ventricular systolic function is normal. EF = 69 5% (2D biplane) Definity contrast used for endocardial border detection. - The right ventricle is normal in size. Right ventricular systolic function is normal. - The visualized aorta is borderline dilated with a maximal dimension of 3.9 cm. - Exam was compared with the prior echocardiographic exam performed on 03/17/21 ([facility]). Visualized aorta is borderline dilated. Cardiac Cath: 6/7/22 THE CORONARY ARTERIES: 1. THE LEFT MAIN: This is a large caliber, medium length vessel demonstrating minimal luminal irregularity. 2. THE LEFT ANTERIOR DESCENDING: This is a large caliber vessel advancing to the apex, demonstrating mid to distal luminal ectasia/irregularity with areas of as much as 30-40% narrowing. 3. THE CIRCUMFLEX: This is a large caliber vessel with evidence of mild midvessel luminal ectasia. 4. THE RIGHT CORONARY ARTERY: This is a large caliber, dominant vessel demonstrating mild luminal ectasia. SUMMARY: Mild left main, left anterior descending, circumflex and right coronary artery disease. IMPRESSION: Mr. Kohli is a 62 year old male who presents today for a cardiovascular medicine follow up s/p cardioversion on 11/05/[address] Brooks. He is an established patient of Dr. Garcia and Dr. Longo for history of persistent atrial fibrillation (s/p PVI 07/2022, recurrence of AF in October, sotalol DC'ed & amiodarone initiated, s/p DCCV, [id number] 1: hypertension), preserved LV systolic function (Echo 12/13/21: 69%). Other past medical history includes hypertension, hyperlipidemia, RA, BPH,DICK (no CPAP). ECG reviewed, demonstrates NSR, normotensive. Well appearing & without evidence of decompensated heart failure on exam. Discussed the following with the patient: - atrial fibrillation diagnosis, management, and triggers. - annual survillence of LFTS, PFTs, and eye exam's while on amiodarone. PLAN AND RECOMMENDATIONS: - no medication changes made today. - rhythm control: amiodarone 200 mg daily. - rate control: none - anticoagulation: apixaban 5 mg BID. - Follow up with Dr. Longo 01/17/23 to discuss continuation of amiodarone vs other AAD. CONTACT INFORMATION: Kareen Bruner APRN, TECHNICAL SALES SUPPORT SPECIALIST, November 14, 2022 [facility] Second Floor [address] [address] [place] [address] documented in this encounterOhiohealth Dublin Methodist Hospital04-25-2023 Miscellaneous Notes* Telephone Encounter - Sidra Iyer RN - 11/06/2022 10:12 AM EDT See 11/[address] Brooks titled 'schedule surgery' * Telephone Encounter - Sidra Iyer RN - 10/22/2022 10:41 AM EDT Patient calling because of 2 issues: Over the weekend, he went back into a-fib (as confirmed by his Apple watch and his own awareness ofsymptoms) Has a conflict with f/u appointment for 11/01 (will be out of town) and would really like to have that rescheduled, maybe earlier especially considering the a-fib? Please call back to (OK to leave message on voicemail) documented in this encounterOhiohealth Dublin [facility] Hospital04-20-2023 History of Present illness Narrative* Ole Marroquin Pss - 11/01/2022 12:52 PM EDT Pre OP labs documented in this encounterOhiohealth Dublin [facility] Hospital04-20-2023 History of Present illness Narrative* Jesse Longo MD - 11/01/2022 8:57 AM EDT Images from the original note were not included. [facility]IONAL CARDIOLOGY OUTPATIENT VISIT DATE November 01, 2022 OUTPATIENT VISIT TYPE ESTABLISHED PRIMARY CARE PHYSICIAN: Tae Martinez ([place]) [address] [place] [address] CHIEF COMPLAINT: Persistent afib , post ablation follow up HISTORY OF PRESENT ILLNESS: Mr. Kohli is a 62 year old male Mr. Kohli is a 61 year old male patient with early persistent afib refractory to DCCV x2 since 2021 and has associated lifestyle limiting symptoms. His LVEF is normal. Bradycardia limited escalation of his sotalol and he only takes it 80mg once daily. He underwent PVI + PWI in 07/2022. Since ablation , he is doing well but reported that he noted an episode of AF on his apple watch last week. Denied any palpitation chest pain or increased dyspnea/. IMPRESSION: Persistent afib: S/p PVI and posterior wall isolation. Back in AF last week.. High risk medication use: On sotalol once daily due to bradycardia. Will d/c sotalol today. Sotalol once daily dose is sub-optimal dosing. Trial of amiodarone 200mg once daily for 3 months. He will start amiodarone 2-3 days after stoppingsotalol today. Will schedule for DC cardioversion next week. PLAN AND RECOMMENDATIONS: Persistent afib: S/p PVI and posterior wall isolation. Back in AF last week.. High risk medication use: On sotalol once daily due to bradycardia. Will d/c sotalol today. Sotalol once daily dose is sub-optimal dosing. Trial of amiodarone 200mg once daily for 3 months. Will schedule for DC cardioversion . PHYSICAL EXAMINATION: There were no vitals taken for this visit. HEENT: normocephalic, EOMI Heart: regular rhythm Lungs: clear to auscultation Abdomen: bowel sounds present Extremities: no edema Musculoskeletal: chest wall nontender Neurological: alert and oriented Psychiatric: appropriate and cooperative Skin: no rash, cellulitis or lesions appreciated CARDIOVASCULAR MEDICINE TESTING: I have personally reviewed ECG Last ECHO Result Conclusion ECHO Collected: 12/13/2021 10:45 AM (Final result) Impression: CONCLUSIONS: - Technically difficult exam due to body habitus. - Exam indication: Sustained atrial fibrillation - The left ventricle is normal in size. Left ventricular systolic function is normal. EF = 69 5% (2D biplane) Definity contrast used for endocardial border detection. - The right ventricle is normal in size. Right ventricular systolic function is normal. - The visualized aorta is borderline dilated with a maximal dimension of 3.9 cm. - Exam was compared with the prior echocardiographic exam performed on 03/17/21 ([facility]). Visualized aorta is borderline dilated. * * * Final * * * Last EKG Result Conclusion ECG COMPLETE Collected: 08/03/2022 9:31 AM (Final result) Impression: SINUS BRADYCARDIA LEFT AXIS DEVIATION LOW VOLTAGE QRS, CONSIDER PULMONARY DISEASE, PERICARDIAL EFFUSION, OR NORMAL VARIANT CANNOT EXCLUDE ANTERIOR MYOCARDIAL INFARCTION , AGE UNDETERMINED ABNORMAL ECG Confirmed by LUCIANO QUISPE M.D. ([id number]) on 08/05/2022 1:35:[address] Result Conclusion CTA CORONARY W IVCON Exam End: 11/28/2021 9:50 AM (Final result) Impression: IMPRESSION: 1. Short left main with no significant atherosclerotic change or stenotic disease. 2. Calcified plaque in mid LAD, at the level of origin of D1, causing up to 70-90% stenosis. Calcified plaque in mid LCx causing 50-70% stenosis. Tiny calcific plaque in the distal RCA causing less than 25% stenosis. 3. Mildly dilated ascending aorta at 3.8 cm Calcified coronary plaques are associated with significant calcium blooming artifact. Calcium blooming artifact limits luminal stenosis assessment and may overestimate severity of stenosis. However, significant stenosis in these segments cannot be excluded. If precise assessment of luminal stenosis is clinically indicated, cardiac catheterization is recommended. Mend Worker: PSCB Transcribe Date/Time: Nov 28 2021 10:09A Dictated by : SALINAS GRAY MD This examination was interpreted and the report reviewed and electronically signed by: NEHA CRAMER MD on Nov 28 2021 2:13PM EST PAST CARDIAC HISTORY: See below PAST MEDICAL HISTORY Diagnosis Date Atrial fibrillation (HCC) BPH (benign prostatic hyperplasia) Elevated TSH Essential hypertension Meningitis spinal 1964 Osteoarthritis of both knees Other hyperlipidemia Rheumatoid arthritis (HCC) Under observation for suspected coronary artery disease PAST SURGICAL HISTORY Procedure Laterality Date ARTHROSCOPY KNEE DIAGNOSTIC W/WO SYNOVIAL BX SPX Right 2013 [facility] CARDIAC RADIOFREQUENCY ABLATION 07/18/2022 PVI/PWI (Afib) TONSILLECTOMY HX Social History Tobacco Use Smoking status: Never Smokeless tobacco: Never Vaping Use Vaping Use: Never used Substance Use Topics Alcohol use: Yes Comment: rare Drug use: Never FAMILY HISTORY Problem Relation Age of Onset Coronary Artery Disease Father 57 smoker; 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 Emphysema Paternal Grandfather ALLERGIES Allergen Reactions Penicillins Rash Sulfa (Sulfonamide * Swelling CURRENT MEDICATIONS: sotalol (BETAPACE) 80 mg tablet^Take 1 tablet by mouth once daily.^Disp: 90 tablet^Rfl: [address] (PROTONIX) 40 mg tablet^Take 1 tablet by mouth twice daily.^Disp: 60 tablet^Rfl: 0 rosuvastatin (CRESTOR) 40 mg tablet^TAKE 1 TABLET AT BEDTIME^Disp: 90 tablet^Rfl: 3 apixaban (ELIQUIS) 5 mg tab(s)^Take 1 tablet by mouth twice daily.^Disp: 60 tablet^Rfl: 5 Cholecalciferol, Vitamin D3, 50 mcg (2,000 unit) cap^Take 2,000 Units by mouth once daily.^Disp: ^Rfl: Zinc 50 mg tab^Take 1 tablet by mouth once daily.^Disp: ^Rfl: nitroglycerin sublingual (NITROQUICK) 0.4 mg SL tablet^Dissolve 1 tablet under the tongue every 5 minutes as needed for chest pain. If no pain relief call 911.^Disp: 25 tablet^Rfl: 3 benazepril (LOTENSIN) 20 mg tablet^Take 20 mg by mouth once daily.^Disp: ^Rfl: MEN'S MULTI-VITAMIN ORAL^Take by mouth once daily.^Disp: ^Rfl: Coenzyme Q10 200 mg cap^Take 200 mg by mouth once daily.^Disp: ^Rfl: glucosamine/chondr prieto A sod (OSTEO BI-FLEX ORAL)^Take by mouth twice daily.^Disp: ^Rfl: S-Adenosylmethionine 400 mg tab^Take 400 mg by mouth once daily.^Disp: ^Rfl: documented in this encounterOhiohealth Dublin [facility] Hospital03-01-2023 Miscellaneous Notes* Telephone Encounter - Sravani Rouse RN - 09/12/2022 9:29 AM EST Received fax from Dr. Yury Brown DDS requesting hold on patients Eliquis for 2 days. Anticoagulation Interruption recommendations: Prescribed anticoagulant: Apixaban (Eliquis) Procedure being performed: Removal of along rooted lower molar Date procedure will be performed: Not provided Recent cardioversion or PVI? Yes: PVI ablation on 07/18/2022 DCCV on 08/22/2021 Hypertension (1) Vascular disease (prior [place], PAD, or aortic plaque) (1) Total Score: 2 Please provide recommendations for appropriate anticoagulation interruption. Patient may hold Eliquis for 2 days prior to his procedure per Dr. Kenny Garcia Faxing to Dr. Brown fax # [phone] with confirmation. documented in this encounterOhiohealth Dublin [facility] Hospital01-07-2023 Miscellaneous Notes* Telephone Encounter - Carmen Johnson RN - 07/21/2022 7:06 AM EST Reason for call: Bruising at post op site Outcome: Patient was conferenced to Dr. Longo's Answering service to speak to cardiology compensation consulting manager. Reason for Disposition [1] Scant bleeding (e.g., few drops) from incision AND [2] blood vessel surgery (e.g., carotid endarterectomy, femoral bypass graft, kidney dialysis fistula Nurse discretion: worsening post op bruising and patient is on Eliquis. Surgical incision symptoms and questions Answer Assessment - Initial Assessment Questions 1. SYMPTOM: bruising at left groin catheterization site, bruise has been getting a little bigger since discharge, but is significantly larger today, size of his hand and flat 2. ONSET: 0400 3. SURGERY: cardiac ablation 07/18/22 4. DATE of SURGERY: see above 5. INCISION SITE: see above 6. REDNESS: none 7. PAIN: none 8. BLEEDING: not external 9. DRAINAGE: no 10. FEVER: no 11. OTHER SYMPTOMS: no; blood pressure during call was 139/97 Protocols used: Post-Op Symptoms and [id number], Post-Op Incision Symptoms and [id number] documented in this encounterOhiohealth Dublin [facility] Hospital11-22-2022 Miscellaneous Notes* Telephone Encounter - Liseth Christensen APRN.CNP - 06/05/2022 4:53 PM EST Was refilled by Dr. Longo yesterday. Liseth Christensen APRN.CNP * Telephone Encounter - Gisell Anglin MA - 06/01/2022 11:27 AM EST Received request for refill of the following medications: Requested Prescriptions Pending Prescriptions Disp Refills sotalol (BETAPACE) 80 mg tablet [Pharmacy Med Name: SOTALOL 80 MG TABLET] 90 tablet 3 Sig: TAKE 1 TABLET BY MOUTH EVERY DAY Patient requested a 90 day refill. Pharmacy verified and updated accordingly. Patient was last seen in cardiology office: 05/11/2022 Dr. Garcia. Upcoming appointment scheduled: 11/01/2022. Labs: Hemoglobin (g/dL) Date Value 12/18/2021 13.0 08/14/2021 14.1 Hematocrit (%) Date Value 12/18/2021 39.9 08/14/2021 41.9 WBC (k/uL) Date Value 12/18/2021 7.55 08/14/2021 9.89 Platelet Count (k/uL) Date Value 12/18/2021 249 08/14/2021 258 Creatinine Date Value Ref Range Status 12/18/2021 0.64 (L) 0.73 - 1.22 mg/dL Final Creatinine (POCT) Date Value Ref Range Status 11/28/2021 0.70 0.7 - 1.4 mg/dL Final documented in this encounterOhiohealth Dublin [facility] Hospital10-28-2022 History of Present illness Narrative* Carlos Garcia MD - 05/11/2022 9:00 AM EDT Images from the original note were not included. [facility] Department of Cardiovascular Medicine SECTION OF REGIONAL CARDIOLOGY OUTPATIENT VISIT DATE May 11, 2022 OUTPATIENT VISIT TYPE ESTABLISHED PRIMARY CARE PHYSICIAN: Tae Martinez ([place]) [address] [place] [address] CHIEF COMPLAINT: Cardiovascular follow-up HISTORY OF PRESENT ILLNESS: Mr. Kohli is a pleasant 61 year old male here for cardiovascular follow-up. He has history of abnormal nuclear stress test medically treating (asymptomatic prior) as well as atrial fibrillation, HLD, HTN, other (RA, BPH, elevated TSH history, OA, sleep apnea seeing sleep medicine not on PAP therapy) initially evaluated 03/03/2021. He had TANVI/DCCV 03/17/2021 (200J to 60bpm) then recurrence, following with Dr. Longo, on sotalol and had repeat DCCV 08/22/2021. In interim, Denies chest pain, dyspnea, lower extremity edema, lightheaded, dizzy, syncope, hematochezia, melena, hematuria, or other issues. Minor bleeding only with cutting. The following portions of the patient's history were reviewed and updated as appropriate, allergies, current medications, past medical, social, surgical, and family history and problem list. I have personally interviewed, confirmed and edited the above information if obtained by others. CURRENT MEDICATIONS: rosuvastatin (CRESTOR) 40 mg tablet^TAKE 1 TABLET AT BEDTIME^Disp: 90 tablet^Rfl: 3 sotalol (BETAPACE) 80 mg tablet^TAKE 1 TABLET BY MOUTH EVERY DAY^Disp: 30 tablet^Rfl: 5 apixaban (ELIQUIS) 5 mg tab(s)^Take 1 tablet by mouth twice daily.^Disp: 60 tablet^Rfl: 5 Cholecalciferol, Vitamin D3, 50 mcg (2,000 unit) cap^Take 2,000 Units by mouth once daily.^Disp: ^Rfl: Zinc 50 mg tab^Take 1 tablet by mouth once daily.^Disp: ^Rfl: aspirin, enteric coated (ADULT LOW DOSE ASPIRIN) 81 mg EC tablet^Take 1 tablet by mouth once daily.^Disp: 90 tablet^Rfl: 0 nitroglycerin sublingual (NITROQUICK) 0.4 mg SL tablet^Dissolve 1 tablet under the tongue every 5 minutes as needed for chest pain. If no pain relief call 911.^Disp: 25 tablet^Rfl: 3 benazepril (LOTENSIN) 20 mg tablet^Take 20 mg by mouth once daily.^Disp: ^Rfl: MEN'S MULTI-VITAMIN ORAL^Take by mouth once daily.^Disp: ^Rfl: Coenzyme Q10 200 mg cap^Take 200 mg by mouth once daily.^Disp: ^Rfl: glucosamine/chondr prieto A sod (OSTEO BI-FLEX ORAL)^Take by mouth twice daily.^Disp: ^Rfl: S-Adenosylmethionine 400 mg tab^Take 400 mg by mouth once daily.^Disp: ^Rfl: Physical Exam BP 125/82 Pulse (!) 56 Wt 106 kg (233 lb 9.6 oz) SpO2 98% BMI 30.82 kg/m Gen: alert, no acute distress HEENT: normocephalic, atraumatic, no rinorrhea, no congestion, normal hearing, EOMI, no eye discharge Heart: no murmurs, S1/S2+, regular rate and rhythm Lungs: no wheezing, rales, symmetric expansion, nonlabored Abdomen: soft, nontender, nondistended Musculoskeletal: no edema, nontender Neurological: no focal deficits, alert, oriented Psychatric: cooperative, appropriate Pertinent Diagnostics/Labs/Data reviewed (ECG and echo listed personally reviewed) and include: 12/19/21 Coronary angiogram: LVEDP 22, LM normal; LAD/Cx/RCA ectatic; mid-distal LAD 30-40% 11/28/21 CCTA: short LM no disesease, mLAD 70-90%, mCx 50-70%, dRCA <25%; ascending aorta 3.8cm 12/13/21: LVEF69%, normal RVSF/size, normal LA/RA size, 1+ TR, 1+ IA, mid ascending 3.9cm Echocardiogram 01/19/2021: LVEF 55-60%, RVSP 35-45mmHg, severe biatrial enlargement, mod TR, RV moderately dilated, mild-mod MR, mild LVH, Pharmacologic MPI 01/19/2021: partial reversibility in inferior wall, fixed defect in apex, LVEF 49%, 05/12/2021: LDL 107, HDL 44, TC 164, TG 65 12/2020: HDL 40, TG 42, LDL 86 Hgb 14.6 ECG 08/22/2021: Afib, left axis deviation ECG 05/10/2021: sinus bradycardia, left axis deviation, inferior and septal infarct pattern ECG 03/03/21 Afib, HR 92bpm, left axis deviation 03/17/2021: TANVI: LVEF 60% Assessment & Plan Coronary Artery Disease Coronary angiogram performed after abnormal CCTA and NM Pharm stress MPI 2. Persistent Atrial Fibrillation s/p TANVI/DCCV 03/17/2021 3. HTN, HLD, sleep apnea Other: RA, hx of abnl TSH Impression: Initial visit on 03/03/2021: AF discussion, OAC discussion, CAD discussion. 10/2021: Extremely activeotherwise. CCTA then subsequent coronary angiogram. 05/11/22: Doing well. Risk factor modification Plan: -sotalol 80mg bid -Rosuvastatin 40mg every day -Apixaban 5mg bid -Benazepril 20mg every day -CoQ 10 -stop aspirin for now to prevent bleeding risk -ok to get covid booster -lipids RTC 1 year Thank you, CONTACT INFORMATION: Carlos Garcia M.D. Cardiovascular Medicine Staff Kevin [facility] Mail Code [id number] [place] [address] documented in this encounterOhiohealth Dublin [facility] Hospital10-27-2022 History of Present illness Narrative* Jesse Longo MD - 05/10/2022 8:57 AM EDT Images from the original note were not included. [facility] SE[facility] OF [facility]IONAL CARDIOLOGY OUTPATIENT VISIT DATE May 10, 2022 OUTPATIENT VISIT TYPE ESTABLISHED PRIMARY CARE PHYSICIAN: Tae Martinez ([facility]) [address] [place] [id number] CHIEF COMPLAINT: afib HISTORY OF PRESENT ILLNESS: Mr. Kohli is a 61 year old male patient of Dr Garcia following today for early persistent afib, first diagnosed in 02/2021 and s/p DCCV x 1 in 08/2021. He underwent successful DCCV into sinus rhythm ad maintained on 80mg once daily ( instead of BID ) of sotalol Due to bradycardia. He presents for routine follow up today. Since last encounter, he denied any palpitation or new onset of AF. IMPRESSION: Early persistent AF: Remained in sinus rhythm post DCCV 08/2021. Continue current AAD. Follow up in 6 months. He understands we would consider afib ablation should he develop recurrence prior to next follow up. PLAN AND RECOMMENDATIONS: Early persistent AF: Remained in sinus rhythm post DCCV 08/2021. Continue current AAD. Follow up in 6 months. He understands we would consider afib ablation should he develop recurrence prior to next follow up. PHYSICAL EXAMINATION: Wt 105.2 kg (232 lb) BMI 30.61 kg/m HEENT: normocephalic, EOMI Heart: regular rhythm Lungs: clear to auscultation Abdomen: bowel sounds present Extremities: no edema Musculoskeletal: chest wall nontender Neurological: alert and oriented Psychiatric: appropriate and cooperative Skin: no rash, cellulitis or lesions appreciated CARDIOVASCULAR MEDICINE TESTING: I have personally reviewed ECG Last ECHO Result Conclusion ECHO Collected: 12/13/2021 10:45 AM (Final result) Impression: CONCLUSIONS: - Technically difficult exam due to body habitus. - Exam indication: Sustained atrial fibrillation - The left ventricle is normal in size. Left ventricular systolic function is normal. EF = 69 5% (2D biplane) Definity contrast used for endocardial border detection. - The right ventricle is normal in size. Right ventricular systolic function is normal. - The visualized aorta is borderline dilated with a maximal dimension of 3.9 cm. - Exam was compared with the prior CC echocardiographic exam performed on 03/17/21 ([facility]). Visualized aorta is borderline dilated. * * * Final * * * Last EKG Result Conclusion ECG COMPLETE Collected: 12/19/2021 8:56 AM (Final result) Impression: Sinus bradycardia Nonspecific intraventricular conduction delay Borderline T abnormalities, inferior leads Abnormal ECG Confirmed by [facility] ([id number]) on 12/23/2021 2:44:[address] Result Conclusion CTA CORONARY W IVCON Exam End: 11/28/2021 9:50 AM (Final result) Impression: IMPRESSION: 1. Short left main with no significant atherosclerotic change or stenotic disease. 2. Calcified plaque in mid LAD, at the level of origin of D1, causing up to 70-90% stenosis. Calcified plaque in mid LCx causing 50-70% stenosis. Tiny calcific plaque in the distal RCA causing less than 25% stenosis. 3. Mildly dilated ascending aorta at 3.8 cm Calcified coronary plaques are associated with significant calcium blooming artifact. Calcium blooming artifact limits luminal stenosis assessment and may overestimate severity of stenosis. However, significant stenosis in these segments cannot be excluded. If precise assessment of luminal stenosis is clinically indicated, cardiac catheterization is recommended. Mend Worker: PSCB Transcribe Date/Time: Nov 28 2021 10:09A Dictated by : SALINAS GRAY MD This examination was interpreted and the report reviewed and electronically signed by: NEHA CRAMER MD on Nov 28 2021 2:13PM EST PAST CARDIAC HISTORY: See below PAST MEDICAL HISTORY Diagnosis Date Atrial fibrillation (HCC) BPH (benign prostatic hyperplasia) Elevated TSH Essential hypertension Meningitis spinal 1964 Osteoarthritis of both knees Other hyperlipidemia Rheumatoid arthritis (HCC) Under observation for suspected coronary artery disease PAST SURGICAL HISTORY Procedure Laterality Date ARTHROSCOPY KNEE DIAGNOSTIC W/WO SYNOVIAL BX SPX Right 2013 TONSILLECTOMY HX Social History Tobacco Use Smoking status: Never Smokeless tobacco: Never Vaping Use Vaping Use: Never used Substance Use Topics Alcohol use: Yes Comment: rare Drug use: Never FAMILY HISTORY Problem Relation Age of Onset Coronary Artery Disease Father 57 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 To be administered in Radiology for CTA exam^Disp: 1 tablet^Rfl: 0 nitroglycerin sublingual (NITROQUICK) 0.3 mg SL tablet^Dissolve 1 tablet under the tongue one time only for 1 dose. To be administered in Radiology for CTA exam^Disp: 1 tablet^Rfl: 0 apixaban (ELIQUIS) 5 mg tab(s)^Take 1 tablet by mouth twice daily.^Disp: 60 tablet^Rfl: 5 Cholecalciferol, Vitamin D3, 50 mcg (2,000 unit) cap^Take 2,000 Units by mouth once daily.^Disp: ^Rfl: Zinc 50 mg tab^Take 1 tablet by mouth once daily.^Disp: ^Rfl: aspirin, enteric coated (ADULT LOW DOSE ASPIRIN) 81 mg EC tablet^Take 1 tablet by mouth once daily.^Disp: 90 tablet^Rfl: 0 nitroglycerin sublingual (NITROQUICK) 0.4 mg SL tablet^Dissolve 1 tablet under the tongue every 5 minutes as needed for chest pain. If no pain relief call 911.^Disp: 25 tablet^Rfl: 3 (Patient not taking: Reported on 03/06/2022) benazepril (LOTENSIN) 20 mg tablet^Take 20 mg by mouth once daily.^Disp: ^Rfl: MEN'S MULTI-VITAMIN ORAL^Take by mouth once daily.^Disp: ^Rfl: Coenzyme Q10 200 mg cap^Take 200 mg by mouth once daily.^Disp: ^Rfl: glucosamine/chondr prieto A sod (OSTEO BI-FLEX ORAL)^Take by mouth twice daily.^Disp: ^Rfl: S-Adenosylmethionine 400 mg tab^Take 400 mg by mouth once daily.^Disp: ^Rfl: documented in this encounterOhiohealth Dublin [facility] Hospital09-12-2022 Miscellaneous Notes* Telephone Encounter - Johnna Victoria APRN.CNP - 03/26/2022 5:13 PM EDT I reviewed last opv continue with medication regimen LFTs normal The following approved medication requests have been transmitted electronically. Requested Prescriptions Signed Prescriptions Disp Refills rosuvastatin (CRESTOR) 40 mg tablet 90 tablet 3 Sig: TAKE 1 TABLET AT BEDTIME Authorizing Provider: CARLOS GARCIA Ordering User: JOHNNA VICTORIA APRN.CNP * Telephone Encounter - Nabila Mata RN - 03/22/2022 5:13 PM EDT Last visit 11/09/2021 Follow up 05/11/2022 Lipid panel done 11/28/2021 Patient's request for medication is as follows: Requested Prescriptions Pending Prescriptions Disp Refills rosuvastatin (CRESTOR) 40 mg tablet [Pharmacy Med Name: ROSUVASTATIN TAB 40MG] 90 tablet 3 Sig: TAKE 1 TABLET AT BEDTIME Prescription(s) as above. Please process accordingly. Nabila Mata RN documented in this encounterOhio[facility]08-23-2022 Instructions* Patient Instructions* Javier Pop DO - 03/06/2022 10:11 AM EDT Continue Voltaren gel up to 3x/day for areas of pain Continue PT for knee arthritis Get prior auth for gel injections Follow up for viscosupplemenation injections for bilateral knees documented in this encounterOhio[facility]08-23-2022 History of Present illness Narrative* Javier Pop DO - 03/06/2022 9:58 AM EDTAssociated Order(s): Large Joint Arthro/Inj: bilateral knee joints Post-Procedure Diagnose(s): Primary osteoarthritis of both knees Images from the original note were not included. Rheumatology Outpatient Clinic Date of Service: 03/06/2022 Patient: Caty Kohli Medical Record: [id number] Primary Care Physician: Tae Martinez DO Last Rheumatology visit: 08/21/2021 (with Javier Pop) History of Present Illness Caty Kohli is a 61 year old male who presents on 03/06/2022 for an in-person visit for evaluationof Osteoarthritis. Caty is both RF - 9 (07/11/2021) and CCP - 13.5 (07/11/2021) negative. His most recent KISHA was positive (07/11/2021). HISTORY OF PRESENT ILLNESS Caty Kohli is a 61 year old male, accompanied by his , referred by his PCP Dr. Martinez, for diffuse joint pain, mostly in the knees and shoulders. The patient has a known history of severe knee arthritis that was previously seen by Ortho here in 2019. The patient was placed on naproxen during that time and has been taking it chronically several times a week for pain relief. In December 2020, patient developed atrial fibrillation and was placed on Eliquis for anticoagulation. Since that time, per the recommendation of his full stack php developer, the patient has cut back on naproxen use and has noticed considerable pain as result. Patient has difficulty ambulating or getting up out of a seated position. Also occasionally has pain in his hands and wrists with morning stiffness lasting several hours, though none today. Also complains of shoulder pain when reaching overhead, has a pinching sensation . He was told by his primary care physician that he may have rheumatoid thrice based on the symmetry of his symptoms though no blood work was taken. Patient does not have any additional joint pain, no rash, no dry eyes, no dry mouth, no Raynaud's, no oral or genital ulcers, no inflammatory eye disease, no inflammatory bowel disease, no urinary symptoms. INTERVAL HISTORY 08/21/2021 - Here today for bilateral knee corticosteroid injections. No change since last visit. Hadknee injections more than 7 or 8 years ago, unsure how long it helped for, just knows that it did help. Has been doing therapy, no change in symptoms. 03/06/22 - Follow up -last injections only lasted several weeks. Has tried Tylenol with minimal relief. Occasionally takes Aleve with some relief though it is very temporary. Has also tried weight loss without any relief. Discussed that we could try another corticosteroid injection today but that the neck step would be to get prior authorization for viscosupplementation. Patient agreeable to both. Rheum/Ortho Arthrocentesis Injections (last 5) Some values may be hidden. Unless noted otherwise, only the newest values recorded on each date aredisplayed. Injection History 08/21/21 Medication - Right 40 mg methylPREDNISolone acetate 40 mg/mL Medication - Left 40 mg methylPREDNISolone acetate 40 mg/mL Location knee Knee Site bilateral knee joints Patient-Entered Data PAIN EVALUATION No data found in the last 1 encounters. PROMIS Assessments PROMIS Assessments 07/08/2021 08/15/2021 02/27/2022 Physical Health Percentile - 66 % 53 % Mental Health Percentile - 63 % 89 % Pain Score - 4 3 Pain Interference Percentile 4 % - 10 % Fatigue Percentile 54 % 58 % 86 % Physical Function Percentile 12 % 42 % 24 % RAPID 3 [place] Activities of Daily Living 02/27/2022 9:54 AM 07/08/2021 10:41 PM Dress self? Without ANY difficulty Get in and out of bed? Without ANY difficulty Walk outdoors? With SOME difficulty Wash and dry body? Without ANY difficulty Get in and out of car? With SOME difficulty RAPID 3 Disease Activity Weighed Score Levels: 0 - 1: Near Remission 1.3 - 2.0: Low Severity 2.3 - 4.0: Moderate Severity 4.3 - 10.0: High Severity RAPID-3 Weighed Score 07/08/2021 02/27/2022 RAPID 3 Weighed Score 6.22 (High Severity (HS)) Incomplete Review of Systems Review of Systems CONSTITUTION: Negative for: Fever and Recent weight change HEENT: Negative for: Nosebleeds, Mouth sores, Trouble swallowing and Dry mouth RESPIRATORY: Negative for: Cough, Shortness of breath and Pain with breathing GASTROINTESTINAL: Negative for: Melena, Diarrhea, Heartburn and Abdominal pain MUSCULOSKELETAL: Positive for: Arthralgias, Joint swelling and Morning Joint Stiffness Negative for: Myalgias and Muscle weakness NEUROLOGICAL: Negative for: Headaches, Numbness and Memory loss SKIN: Negative for: Rash, Skin changes, Hair loss and Nail changes EYES: Negative for: Eye pain, Eye redness, Eye dryness and visual disturbance CARDIOVASCULAR: Negative for: Chest pain and Leg swelling GENITOURINARY: Negative for: Dysuria and Hematuria HEMATOLOGIC/LYMPHATIC: Negative for: Swollen glandsAll other reviewed and negative other than HPI. Past Medical History PAST MEDICAL HISTORY Diagnosis Date Atrial fibrillation (HCC) BPH (benign prostatic hyperplasia) Elevated TSH Essential hypertension Meningitis spinal 1966 Osteoarthritis of both knees Other hyperlipidemia Rheumatoid arthritis (HCC) Under observation for suspected coronary artery disease Past Surgical History PAST SURGICAL HISTORY Procedure Laterality Date ARTHROSCOPY KNEE DIAGNOSTIC W/WO SYNOVIAL BX SPX Right 2013 TONSILLECTOMY HX Family History FAMILY HISTORY Problem Relation Age of Onset Coronary Artery Disease Father 57 smoker; 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 Emphysema Paternal Grandfather Social History Social History Tobacco Use Smoking status: Never Smokeless tobacco: Never Vaping Use Vaping Use: Never used Substance Use Topics Alcohol use: Yes Comment: rare Drug use: Never Current Medications Current Outpatient Medications on File Prior to Visit Medication Sig sotalol (BETAPACE) 80 mg tablet TAKE 1 TABLET BY MOUTH EVERY DAY apixaban (ELIQUIS) 5 mg tab(s) Take 1 tablet by mouth twice daily. rosuvastatin (CRESTOR) 40 mg tablet Take 1 tablet by mouth daily at bedtime. Cholecalciferol, Vitamin D3, 50 mcg (2,000 unit) cap Take 2,000 Units by mouth once daily. Zinc 50 mg tab Take 1 tablet by mouth once daily. aspirin, enteric coated (ADULT LOW DOSE ASPIRIN) 81 mg EC tablet Take 1 tablet by mouth once daily. benazepril (LOTENSIN) 20 mg tablet Take 20 mg by mouth once daily. MEN'S MULTI-VITAMIN ORAL Take by mouth once daily. Coenzyme Q10 200 mg cap Take 200 mg by mouth once daily. glucosamine/chondr prieto A sod (OSTEO BI-FLEX ORAL) Take by mouth twice daily. S-Adenosylmethionine 400 mg tab Take 400 mg by mouth once daily. nitroglycerin sublingual (NITROQUICK) 0.3 mg SL tablet Dissolve 1 tablet under the tongue one time only for 1 dose. To be administered in Radiology for CTA exam nitroglycerin sublingual (NITROQUICK) 0.3 mg SL tablet Dissolve 1 tablet under the tongue one time only for 1 dose. To be administered in Radiology for CTA exam nitroglycerin sublingual (NITROQUICK) 0.4 mg SL tablet Dissolve 1 tablet under the tongue every 5 minutes as needed for chest pain. If no pain relief call 911. (Patient not taking: Reported on 03/06/2022) Current Facility-Administered Medications on File Prior to Visit Medication sodium chloride 0.9 % (flush) 10 mL (BD POSIFLUSH) Labs CBC Latest Ref Rng & Units 03/03/2021 07/11/2021 08/14/2021 12/18/2021 WBC 3.70 - 11.00 k/uL 9.11 7.75 9.89 7.55 HEMOGLOBIN 13.0 - 17.0 g/dL 14.0 13.9 14.1 13.0 HEMATOCRIT 39.0 - 51.0 % 42.7 42.7 41.9 39.9 PLATELETS 150 - 400 k/uL 270 265 258 249 ABS NEUT (ANC) 1.45 - 7.50 k/uL - 4.89 6.71 - ABS LYMPH 1.00 - 4.00 k/uL - 1.60 2.02 - CMP Latest Ref Rng & Units 07/11/2021 08/14/2021 11/28/2021 12/18/2021 SODIUM 136 - 144 mmol/L 138 135(L) 141 138 POTASSIUM 3.7 - 5.1 mmol/L 4.3 4.6 5.0 4.0 CHLORIDE 97 - 105 mmol/L 103 102 104 104 CO2 22 - 30 mmol/L 26 23 24 26 GLUCOSE 74 - 99 mg/dL 92 97 94 145(H) BUN 9 - 24 mg/dL 11 14 16 23 CREATININE 0.73 - 1.22 mg/dL 0.62(L) 0.70(L) 0.72(L) 0.64(L) CREATININE (POCT) 0.7 - 1.4 mg/dL - - 0.70 - CALCIUM, TOTAL 8.5 - 10.2 mg/dL 9.3 9.5 9.3 9.2 AST 14 - 40 U/L 27 - - - ALT 10 - 54 U/L 26 - - - ALKALINE PHOSPHATASE 38 - 113 U/L 78 - - - ESR, WSR Latest Ref Rng & Units 07/11/2021 WSR 0 - 15 mm/hr 37(H) CRP Latest Ref Rng & Units 07/11/2021 CRP <0.9 mg/dL 0.7 RF and CCP Latest Ref Rng & Units 07/11/2021 RHEUMATOID FACTOR <16 IU/mL <10 CCP ANTIBODY, IGG <20 Units <15 Antibodies Latest Ref Rng & Units 07/11/2021 KISHA Negative Positive(A) KISHA TITER Negative >1:1,280(A) KISHA PATTERN - Atypical speckled DNA ANTIBODY W/CONFIRMATION <30 IU/mL <12 ACTING SECTION CHIEF ANTIBODY <1.0 AI 0.3 SSA ANTIBODY <1.0 AI <0.2 SSB ANTIBODY <1.0 AI <0.2 STORM 1 ANTIBODY <1.0 AI <0.2 RIBOSOMAL ACTING SECTION CHIEF <1.0 AI <0.2 SM ANTIBODY <1.0 AI <0.2 SCLERODERMA AB, IGG <1.0 AI <0.2 CENTROMERE AB <1.0 AI <0.2 CHROMATIN ANTIBODY <1.0 AI <0.2 Imaging Last XR Hand/Finger - Impression Only XR HAND/WRIST SURVEY ARTHRITIS 1V PA BILATERAL Exam End: 07/11/2021 11:53 AM (Final result) Impression: IMPRESSION: No radiographic evidence for inflammatory arthritis. Mild osteoarthritis of the hands as described. ... Last MRI Hand - Impression Only No resulted procedures found. Last XR Chest - Impression Only No resulted procedures found. Last XR Cervical Spine - Impression Only No resulted procedures found. Last XR Knee - Impression Only XR KNEE GENERAL 4V AP BOTH/PA BOTH/LAT/MERC BILATERAL Exam End: 07/11/2021 11:53 AM (Final result) Impression: IMPRESSION: Advanced osteoarthritis. Mend Worker: ADRY Transcribe Date/Time: Jul 11 2021 12:05P ... Health Maintenance Current Immunizations Reviewed on 03/06/2022 Name Date Flucelvax Quadrivalent, preservative free 06/19/2018 INFLUENZA 06/25/2017 Physical Exam GENERAL APPEARANCE: Well groomed. Alert and oriented x 3. In no distress. VITAL SIGNS: BP 141/77 Pulse 54 Temp (Src) 97.3 (Temporal) Ht 6' 1 (1.85m) Wt 229 lb 4.8 oz (104.0kg) BMI 30.26 kg/(m^2). SKIN: No rash, thickening, nodules, discoloration. EYES: PERRL, EOMI. No inflammation seen. HENT: External examination and palpation of the ears and nose normal. Lips, teeth, and gums normal.Oropharynx and tongue normal. No lesions or exudate. RESPIRATORY: Normal respiratory effort. Clear to auscultation and percussion. CARDIOVASCULAR: Heart RRR without gallop, murmur, or rub. No bruits across chest or neck. MUSCULOSKELETAL EXAMINATION: Soft tissue tender points: None Motor exam: Normal 5+/5+ muscle strength. Normal bulk and tone. Cervical spine: No visible abnormalities. Full ROM. No tenderness to palpation. Thoracic spine: No visible abnormalities. No tenderness to palpation. Lumbar spine: No visible abnormalities. Full ROM. No tenderness to palpation. Upper extremities: Normal inspection of joints. Shoulder, elbows, wrists, and hand joints without synovitis, swelling, tenderness, deformity, or lack of ROM. Lower extremities: Normal inspection of joints. Hips, ankles, and feet without synovitis, swelling,tenderness, deformity, or lack of ROM. The knees are without obvious signs of acute bony deformity, swelling, erythema, ecchymosis or joint effusion. There is evidence of bony hypertrophy bilaterally. The patella is without tenderness. Apprehension is negative with medial and lateral glide. Patella crepitus is positive. Patella grind isnegative. The medial joint line is tender but without bony crepitus or step-off. The lateral joint line is tender but without bony crepitus or step-off. Flexion is limited to 90 degrees & extension is full and symmetrical. Varus & valgus stress test at 0 and 30 of flexion, Tali's, Azam's are all negative. Gait is antalgic. Large Joint Arthro/Inj: bilateral knee joints Informed Consent Consent Obtained: Verbal [place] Protocol A moment to CARE was completed. SIGN IN Personnel directly involved with the procedure wore the appropriate PPE. Special Equipment: N/A Patient/Surrogate Stated/Verified: Patient name, Date of , Relevant allergies and Intended procedure TIME OUT Intended patient and procedure match the source document(s). Consent documented and matches the intended procedure. Relevant labs, photos, and/or imaging studies have been reviewed. Correct side/site marked and visible. Medications required for procedure verified. 03/06/2022 10:37 AM The procedure site was prepped in the usual sterile fashion. Site: bilateral knee joints Details:Musculoskeletal ultrasound was utilized to successfully localize placement of the injectionneedle at the appropriate site. Ultrasound images demonstrating local vasculature and demonstratinginjection of solution were saved. Medications (Right): 40 mg methylPREDNISolone acetate 40 mg/mL Medications (Left): 40 mg methylPREDNISolone acetate 40 mg/mL Anesthetics (Right): 4 mL lidocaine (PF) 10 mg/mL (1 %) Anesthetics (Left): 4 mL lidocaine (PF) 10 mg/mL (1 %) Outcome: Tolerated well, no immediate complications Post-injection instructions were reviewed with the patient and the patient voiced understanding of these instructions. SIGN OUT Post-procedure follow-up management communicated and Plan of Care Visit completed when applicable Impression Diagnoses: (M17.0) Primary osteoarthritis of both knees (primary encounter diagnosis) (R76.8) Positive KISHA (antinuclear antibody) Caty Kohli is a 61 year old male, accompanied by his , referred by his PCP Dr. Martinez, for diffuse joint pain, mostly in the knees and shoulders. He has clear evidence of severe osteoarthritis in his knees from 2019 that has not improved unless using naproxen on a near regular basis. The issuewith this is his recent diagnosis of atrial fibrillation, now on anticoagulation with Eliquis. I advised him to discontinue this medication and instead use Voltaren gel as I feel this would be a safer alternative for him. He has evidence of rotator cuff tendinopathy and shoulder impingement which Ibelieve will improve with a course of physical therapy. Discussed at length the possibility of a knee replacement in the future, he has had knee injections in the past but cannot remember how long hebenefited from them. Bilateral knee intra-articular corticosteroid injections, tolerated well, postprocedure instructions given. Last visit, his injections to both knees with corticosteroids only lasted several weeks. Repeat injections today but at this point, I would consider him a candidate for viscosupplementation. He has not improved with other conservative measures including NSAIDs, steroidinjections, physical therapy and weight loss. Underwent bilateral knee corticosteroid injections today, tolerated well, post procedure instructions discussed. We will get prior authorization for visco supplementation. Follow-up when approved. Plan Orders this visit: Office Visit on 03/06/22 Large Joint Arthro/Inj US KNEE-INJECTION RT (POC) XIAO USE ONLY US KNEE-INJECTION LT (POC) XIAO USE ONLY Recommendations: Continue Voltaren gel up to 3x/day for areas of pain Tylenol 1000 mg up to 3 times a day as needed for pain Continue PT for knee arthritis Get prior auth for gel injections Follow up for viscosupplemenation injections for bilateral knees Return if symptoms worsen or fail to improve, for Gel Injections. I spent a total of 30 minutes on the date of the service which included preparing to see the patient, [id number] patient care, completing clinical documentation, obtaining and/or reviewing separately obtained history, performing a medically appropriate examination, counseling and educating the pat ient/family/caregiver, ordering medications, tests, or procedures, and communicating results to thepatient/family/caregiver. Medical Decision Making: Problems: Moderate: 1+ chronic illnesses with change Data: Unique source(s) for external note(s) reviewed: 1 Unique test result(s) reviewed: 3+ Unique test(s) ordered: 2 Risk: Moderate: Moderate risk from testing/treatment Medical Decision Making Level: 4 - Moderate Javier Pop DO Rheumatology Date: March 06, 2022 Time: 9:58 AM documented in this encounterOhio[facility]06-07-2022 Miscellaneous Notes* Telephone Encounter - Erendira Osborne MA - 12/19/2021 1:09 PM EDT Last office visit 11/09/21 Future appt scheduled 05/10/22 documented in this encounterOhio[facility]05-17-2022 Miscellaneous Notes* Telephone Encounter - Carlos Garcia MD - 11/28/2021 8:51 PM EDT CCTA with significant mLAD disease and moderate Cx disease unclear of physiologic hemodynamic significance. Outside Nuclear with mildly reduced EF, partially reversible inferior wall and fixed apical defect;although outside echocardiogram mentions 55-60% Young age, EF abnormality, and symptoms, would be worthwhile for cine coronary angiogram possible intervention and will try to repeat echocardiogram prior documented in this encounterOhio[facility]05-17-2022 History of Present illness Narrative* RADHA Lester - 11/28/2021 8:30 AM EDT Radiology Service Progress Note PATIENT NAME: Caty Kohli DATE OF SERVICE: November 28, 2021 TIME: 9:38 AM PATIENT IDENTITY VERIFICATION COMPLETED USING TWO (2) IDENTIFIERS: Name and Date of confirmedby patient verbally and Name and Date of confirmed by identification band. FALL SCREENING: Has the patient had 2 falls in the last year or 1 fall with injury or currently using an Ambulatory Assistive Device (Walker, Cane, Wheelchair, Crutches, etc.)? No PATIENT GENDER DATA: Male PATIENT RELEVANT IMPLANT DATA REVIEWED: Not Applicable RADIOLOGY DEPARTMENT: CT; Exam(s) Completed: Cardiac PERIPHERAL IV DATA: Site assessment: Clean,Dry and Intact, Site disposition Discontinued SIGNED BY: RADHA Lester November 28, 2021 9:38 AM documented in this encounterOhiohealth [facility]05-17-2022 Nurse Note* Jaron Tomas RN - 11/28/2021 8:30 AM EDT Radiology Service Progress Note DATE OF SERVICE: November 28, 2021 TIME: 8:34 AM PATIENT WEIGHT: 224 LBS PATIENT IDENTITY VERIFICATION COMPLETED USING TWO (2) STANDARD IDENTIFIERS: Name and Date of confirmed by patient verbally. FALL SCREENING: Has the patient had 2 falls in the last year or 1 fall with injury or currently using an Ambulatory Assistive Device (Walker, Cane, Wheelchair, Crutches, etc.)? No PATIENT GENDER DATA: Male ALLERGIES: Reviewed and unchanged CONTRAST ALLERGY: No EXAM: CT -CONTRAST INDUCED NEPHROPATHY RISK FACTORS: Patient age > 60 years CREATININE: Creatinine Date Value Ref Range Status 08/14/2021 0.70 (L) 0.73 - 1.22 mg/dL Final 07/11/2021 0.62 (L) 0.73 - 1.22 mg/dL Final 03/03/2021 0.74 0.73 - 1.22 mg/dL Final eGFR-All Other Races Date Value Ref Range Status 08/14/2021 >60 . Final Comment: eGFR (Estimated GFR) Units of measure: mL/min/1.73 meters squared eGFR is derived from the reexpressed MDRD Study equation using the following parameters: serum creatinine, age, gender and race. The creatinine assay has been calibrated to be traceable to IDMS. An eGFR <60 mL/min/1.73m2 for >3 months is consistent with chronic kidney disease. Refer to KDOQI guidelines for clinical interpretation. In patients with unstable renal function, e.g. those with acute kidney injury, the eGFR may not accurately reflect actual GFR. Note: On 09/09/2021, the eGFR calculation will be updated to the NKF-ASN Task Force recommended 2020 CKD-EPI creatinine equation which does not include a race variable. For more information or to access a 2020 CKD-EPI calculator, visit the National Kidney [employer] website at kidney.org/professionals/kdoqi/gfr_calculator. eGFR- Date Value Ref Range Status 08/14/2021 >60 Final P.O.C.T. RESULTS: N/A November 28, 2021 TREATMENT: N/A IV SITE: Ambulatory: A peripheral IV was started in the Right antecubital site with a Diffusics 20ga. IV SITE APPEARANCE: Clean,Dry and Intact SIGNATURE: Jaron Tomas RN PATIENT NAME: Caty Kohli DATE: November 28, 2021 TIME: 8:34 AM documented in this encounterOhio[facility]05-16-2022 Miscellaneous Notes* Telephone Encounter - Sravani Rouse RN - 11/27/2021 2:45 PM EDT Called patient. Dr. Garcia reordering Nitroglycerin SL to take with him to CTA exam tommorow, Metoprolol tartrate 50 mg X 2 tablets to take one this evening and one the morning of CTA exam. Instructed to hold the Metoprolol if his heart rate is below 60. Patient verbalized understanding and stated his heart rate has been in the 50's. documented in this encounterOhiohealth [facility]05-16-2022 Miscellaneous Notes* Telephone Encounter - Camron Morris - 11/27/2021 11:25 AM EDT Pharmacy states they dont have these medications for the patient. Patient has imaging scheduled fortomorrow. Needs urgently Patient has been identified by name and date of : Yes Pending Prescriptions Disp Refills NITROGLYCERIN 0.3 MG SUBLINGUAL TABLET 1 tablet 0 Sig: Dissolve 1 tablet under the tongue one time only for 1 dose. To be administered in Radiology for CTA exam EVA: No METOPROLOL TARTRATE 50 MG TABLET 2 tablet 0 Sig: Take one 50 mg tablet the evening prior to the CTA examination, take another 50 mg tablet the morning of the CTA examination. EVA: No RX INSTRUCTIONS: Patient aware RX will be sent to pharmacy. No need to notify patient. Camron Morris * Telephone Encounter - Odin Coreas - 11/27/2021 10:00 AM EDT Patient went to the pharmacy this morning to greens picker medication. Pharmacy states they never received anything. Orders were sent on 11/09. Please have them resent to the pharmacy. Patient can be reached at [phone] documented in this encounterOhiohealth [facility]04-28-2022 Miscellaneous Notes* Addendum Note - Carlos Garcia MD - 11/09/2021 11:19 AM EDT Addended by: CARLOS GARCIA on: 11/09/2021 11:19 AM Modules accepted: Orders documented in this encounterOhiohealth Dublin [facility]04-28-2022 History of Present illness Narrative* Jesse Longo MD - 11/09/2021 9:48 AM EDT Images from the original note were not included. [facility] [place] [facility] OF [facility]IONAL CARDIOLOGY OUTPATIENT VISIT DATE November 09, 2021 OUTPATIENT VISIT TYPE ESTABLISHED PRIMARY CARE PHYSICIAN: Tae Martinez ([facility]) [address] [place] [address] CHIEF COMPLAINT: AFib HISTORY OF PRESENT ILLNESS: Mr. Kohli is a 60 year old male with history persistent atrial fibrillation. He also has past history of HTN, elevated TSH, bilateral OA of knees, Rheumatoid Arthritis, HLD, and BPH. He is on eliquis for stroke prevention and metoprolol for rate control. He underwent TANVI-DCCV in 03/2021 and his AF was first noted in 02/2021. However, he wnet back in AF and more aware of it, despite increase in dose of beta leia.His LVEFis normal on recent echo. Metoprolol was switched to sotall and he underwent DCCV in 08/22/2021 backinto sinus rhythm. He presents for routine folow up today. Since his last DCCV , he is doing well and tolerating sotalol. No new palpitation or chest pain. IMPRESSION: Early Persistent afib: S/p DCCV into sinus rhythm. Still in sinus And maintained on sotalol 80mg BID. Hoever, his ECG today showed sinus bradycardia. I will consider changing his sotalol to 80mg once daily. Continue OAC. Folow up in 6 months, or sooner if any new afib episodes. Will consider/recommend afib ablation Should that happen. PLAN AND RECOMMENDATIONS: Early Persistent afib: S/p DCCV into sinus rhythm. Still in sinus And maintained on sotalol 80mg BID. Hoever, his ECG today showed sinus bradycardia. I will consider changing his sotalol to 80mg once daily. Continue OAC. Folow up in 6 months, or sooner if any new afib episodes. Will consider/recommend afib ablation Should that happen. PHYSICAL EXAMINATION: Wt 101.6 kg (224 lb) BMI 28.76 kg/m HEENT: normocephalic, EOMI Heart: regular rhythm Lungs: clear to auscultation Abdomen: bowel sounds present Extremities: no edema Musculoskeletal: chest wall nontender Neurological: alert and oriented Psychiatric: appropriate and cooperative Skin: no rash, cellulitis or lesions appreciated CARDIOVASCULAR MEDICINE TESTING: I have personally reviewed ECG - sinus bradycardia PAST CARDIAC HISTORY: See below PAST MEDICAL HISTORY Diagnosis Date Atrial fibrillation (HCC) BPH (benign prostatic hyperplasia) Elevated TSH Essential hypertension Meningitis spinal 1964 Osteoarthritis of both knees Other hyperlipidemia Rheumatoid arthritis (HCC) Under observation for suspected coronary artery disease PAST SURGICAL HISTORY Procedure Laterality Date ARTHROSCOPY KNEE DIAGNOSTIC W/WO SYNOVIAL BX SPX Right 2013 TONSILLECTOMY HX Social History Tobacco Use Smoking status: Never Smoker Smokeless tobacco: Never Used Vaping Use Vaping Use: Never used Substance Use Topics Alcohol use: Yes Comment: rare Drug use: Never FAMILY HISTORY Problem Relation Age of Onset Coronary Artery Disease Father 57 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 No IV access, insert saline lock prior to the sedation, infusion, injection for imaging exam. Discontinue saline lock post exam. If Pt. has a central line or IVAD, may access for administration according to line specific nursing protocol. Once exam is complete flush line and de-access according to line specific nursing protocol in the CT contrast administration guidelines link. metoprolol tartrate, short acting, (LOPRESSOR) 50 mg tablet Take one 50 mg tablet the evening priorto the CTA examination, take another 50 mg tablet the morning of the CTA examination. nitroglycerin sublingual (NITROQUICK) 0.3 mg SL tablet Dissolve 1 tablet under the tongue one time only for 1 dose. To be administered in Radiology for CTA exam sotalol (BETAPACE) 80 mg tablet Take 1 tablet by mouth twice daily. rosuvastatin (CRESTOR) 40 mg tablet Take 1 tablet by mouth daily at bedtime. Cholecalciferol, Vitamin D3, (VITAMIN D-3) 50 mcg (2,000 unit) cap Take 2,000 Units by mouth once daily. apixaban (ELIQUIS) 5 mg tab(s) Take 5 mg by mouth twice daily. Zinc 50 mg tab Take 1 tablet by mouth once daily. sodium chloride 0.9 %, flush, (BD POSIFLUSH) syringe Inject 2-10 mL intravenously as directed. For Echo procedure aspirin, enteric coated (ADULT LOW DOSE ASPIRIN) 81 mg EC tablet Take 1 tablet by mouth once daily. nitroglycerin sublingual (NITROQUICK) 0.4 mg SL tablet Dissolve 1 tablet under the tongue every 5 minutes as needed for chest pain. If no pain relief call 911. benazepril (LOTENSIN) 20 mg tablet Take 20 mg by mouth once daily. MEN'S MULTI-VITAMIN ORAL Take by mouth once daily. Coenzyme Q10 (CO Q-10) 200 mg cap Take 200 mg by mouth once daily. glucosamine/chondr prieto A sod (OSTEO BI-FLEX ORAL) Take by mouth twice daily. S-Adenosylmethionine (CARLO-E) 400 mg tab Take 400 mg by mouth once daily. [facility] History of Present illness Narrative* Carlos Garcia MD - 11/09/2021 8:00 AM EDT Images from the original note were not included. [facility] Department of Cardiovascular Medicine SECTION OF REGIONAL CARDIOLOGY OUTPATIENT VISIT DATE November 09, 2021 OUTPATIENT VISIT TYPE ESTABLISHED PRIMARY CARE PHYSICIAN: Tae Martinez ([place]) [address] [place] [address] CHIEF COMPLAINT: Cardiovascular follow-up HISTORY OF PRESENT ILLNESS: Mr. Kohli is a pleasant 61 year old male here for cardiovascular follow-up. He has history of abnormal nuclear stress test medically treating (asymptomatic prior) as well as atrial fibrillation, HLD, HTN, other (RA, BPH, elevated TSH history, OA, sleep apnea seeing sleep medicine not on PAP therapy) initially evaluated 03/03/2021. He had TANVI/DCCV 03/17/2021 (200J to 60bpm) then recurrence, following with Dr. Longo, on sotalol and had repeat DCCV 08/22/2021. In interim, Stays active working but not necessarily exercising. denies major symptoms of chest pain, dyspnea, lower extremity edema, lightheaded, dizzy, syncope, hematochezia, melena, hematuria, or other issues. The following portions of the patient's history were reviewed and updated as appropriate, allergies, current medications, past medical, social, surgical, and family history and problem list. I have personally interviewed, confirmed and edited the above information if obtained by others. CURRENT MEDICATIONS: sotalol (BETAPACE) 80 mg tablet Take 1 tablet by mouth twice daily. rosuvastatin (CRESTOR) 40 mg tablet Take 1 tablet by mouth daily at bedtime. Cholecalciferol, Vitamin D3, (VITAMIN D-3) 50 mcg (2,000 unit) cap Take 2,000 Units by mouth once daily. apixaban (ELIQUIS) 5 mg tab(s) Take 5 mg by mouth twice daily. Zinc 50 mg tab Take 1 tablet by mouth once daily. aspirin, enteric coated (ADULT LOW DOSE ASPIRIN) 81 mg EC tablet Take 1 tablet by mouth once daily. benazepril (LOTENSIN) 20 mg tablet Take 20 mg by mouth once daily. MEN'S MULTI-VITAMIN ORAL Take by mouth once daily. Coenzyme Q10 (CO Q-10) 200 mg cap Take 200 mg by mouth once daily. glucosamine/chondr prieto A sod (OSTEO BI-FLEX ORAL) Take by mouth twice daily. S-Adenosylmethionine (CARLO-E) 400 mg tab Take 400 mg by mouth once daily. iv contrast (will be provided with radiology test) CTA Coronary. No IV access, insert saline lock prior to the sedation, infusion, injection for imaging exam. Discontinue saline lock post exam. If Pt. has a central line or IVAD, may access for administration according to line specific nursing protocol. Once exam is complete flush line and de-access according to line specific nursing protocol in the CT contrast administration guidelines link. metoprolol tartrate, short acting, (LOPRESSOR) 50 mg tablet Take one 50 mg tablet the evening priorto the CTA examination, take another 50 mg tablet the morning of the CTA examination. nitroglycerin sublingual (NITROQUICK) 0.3 mg SL tablet Dissolve 1 tablet under the tongue one time only for 1 dose. To be administered in Radiology for CTA exam sodium chloride 0.9 %, flush, (BD POSIFLUSH) syringe Inject 2-10 mL intravenously as directed. For Echo procedure nitroglycerin sublingual (NITROQUICK) 0.4 mg SL tablet Dissolve 1 tablet under the tongue every 5 minutes as needed for chest pain. If no pain relief call 911. Physical Exam BP 112/86 Pulse (!) 54 Ht 188 cm (6' 2 ) Wt 101.9 kg (224 lb 9.6 oz) BMI 28.84 kg/m Gen: alert, no acute distress HEENT: normocephalic, atraumatic, no rinorrhea, no congestion, normal hearing, EOMI, no eye discharge Heart: no murmurs, S1/S2+, regular rate and rhythm Lungs: no wheezing, rales, symmetric expansion, nonlabored Abdomen: soft, nontender, nondistended Musculoskeletal: no edema, nontender Neurological: no focal deficits, alert, oriented Psychatric: cooperative, appropriate Pertinent Diagnostics/Labs/Data reviewed (ECG and echo listed personally reviewed) and include: Pharmacologic MPI 01/19/2021: partial reversibility in inferior wall, fixed defect in apex, LVEF 49%, Echocardiogram 01/19/2021: LVEF 55-60%, RVSP 35-45mmHg, severe biatrial enlargement, mod TR, RV moderately dilated, mild-mod MR, mild LVH, 05/12/2021: LDL 107, HDL 44, TC 164, TG 65 12/2020: HDL 40, TG 42, LDL 86 Hgb 14.6 ECG 08/22/2021: Afib, left axis deviation ECG 05/10/2021: sinus bradycardia, left axis deviation, inferior and septal infarct pattern ECG 03/03/21 Afib, HR 92bpm, left axis deviation 03/17/2021: TANVI: LVEF 60% Assessment & Plan 1. Abnormal Pharmacologic Stress - under observation for suspected Coronary Artery Disease -fixed defect apex, partial reversibility inferior wall 2. Persistent Atrial Fibrillation s/p TANVI/DCCV 03/17/2021 today in sinus bradycardia 3. HTN, HLD, sleep apnea Other: RA, hx of abnl TSH Impression: Initial visit on 03/03/2021 discussed risk factors/adverse effects of atrial fibrillation as well asanticoagulation counseling as well as discussed pathophysiology of ischemic heart disease/plaque formation. He was asymptomatic at initial visit except due to RA. Again asymptomatic CV strick[place]. I did discuss his presumed CAD diagnosis and likely true given his ECG also prior has inferior/septal infarct pattern. Goal for guideline directed therapy for ischemic heart disease (see data: pharm stress and ECG). Today, I am unclear if symptoms occurs if he is exertionally active but states active. He is at younger age, getting an anatomical assessment would benefit given also the apex fixed defect and nuclear LVEF 49% at this time in addition to prior abnormal echocardiogram results that will need repeating. We discussed this for a while. Plan: -sotalol 80mg bid -Rosuvastatin 40mg every day -Apixaban 5mg bid -aspirin 81mg every day -Benazepril 20mg every day -CoQ 10 -nitroglycerin prn -Coronary CTA ordered -repeat labs and lipids goal LDL < 70 -Repeat echocardiogram at next visit in 6 months with me Thank you, CONTACT INFORMATION: Carlos Garcia M.D. Cardiovascular Medicine Staff Kevin HaleyHaroon [facility] Mail Code [id number] [address] [facility] [place] [address] [facility]* Diagnosis Under observation for suspected coronary artery disease- Primary Observation for suspected cardiovascular disease Other hyperlipidemia Essential hypertension Unspecified essential hypertension Persistent atrial fibrillation (HCC) Atrial fibrillation Pulmonary hypertension, unspecified (HCC) Abnormal nuclear stress test Other nonspecific abnormal cardiovascular system function study [facility]* Diagnosis Persistent atrial fibrillation (HCC)- Primary Atrial fibrillation [facility]* Diagnosis Coronary artery disease involving [place] coronary artery of [place] heart, unspecified whether angina present- Primary documented in this encounter [facility] note* Diagnosis Under observation for suspected coronary artery disease Observation for suspected cardiovascular disease Abnormal nuclear stress test Other nonspecific abnormal cardiovascular system function study documented in this encounter [facility] note* Diagnosis Under observation for suspected coronary artery disease Observation for suspected cardiovascular disease Essential hypertension Unspecified essential hypertension Persistent atrial fibrillation (HCC) Atrial fibrillation Pulmonary hypertension, unspecified (HCC) Abnormal cardiovascular stress test Other nonspecific abnormal cardiovascular system function study documented in this encounter [facility] note* Diagnosis Primary osteoarthritis of both knees- Primary Primary localized osteoarthrosis, lower leg Positive KISHA (antinuclear antibody) Other and unspecified nonspecific immunological findings documented in this encounter [facility] note* Diagnosis Medication refill [Z76.0 (ICD-10-CM)]- Primary Issue of repeat prescriptions documented in this encounter [facility] note* Diagnosis Persistent atrial fibrillation (HCC)- Primary Atrial fibrillation documented in this encounter [facility] note* Diagnosis Coronary artery disease involving [place] coronary artery of [place] heart, unspecified whether angina present- Primary documented in this encounter [facility] note* Diagnosis Persistent atrial fibrillation (HCC)- Primary Atrial fibrillation documented in this encounter [facility] note* Diagnosis Persistent atrial fibrillation (HCC)- Primary Atrial fibrillation Atrial fibrillation, persistent (HCC) Atrial fibrillation documented in this encounter [facility] note* Diagnosis Paroxysmal atrial fibrillation (HCC)- Primary Atrial fibrillation Atrial fibrillation, persistent (HCC) Atrial fibrillation documented in this encounter [facility] note* Diagnosis Persistent atrial fibrillation (HCC)- Primary Atrial fibrillation Atrial fibrillation status post cardioversion (HCC) Atrial fibrillation documented in this encounter [facility] note* Diagnosis Persistent atrial fibrillation (HCC)- Primary Atrial fibrillation documented in this encounter [facility] note* Diagnosis Coronary artery disease involving [place] heart without angina pectoris, unspecified vessel or lesion type- Primary documented in this encounter [facility] noteNo [facility] Other Evaluation note* Diagnosis Persistent atrial fibrillation (HCC) [I48.19]- Primary Atrial fibrillation documented in this encounter [facility] note* Diagnosis Persistent atrial fibrillation (HCC)- Primary Atrial fibrillation S/P ablation of atrial fibrillation Other postprocedural status On continuous oral anticoagulation Long-term (current) use of anticoagulants [facility]* Diagnosis Persistent atrial fibrillation (HCC) Atrial fibrillation [facility]* Diagnosis Persistent atrial fibrillation (HCC)- Primary Atrial fibrillation documented in this encounter [facility] general Narrative - Reported* Type Description Date Medical History Primary hypertension Medical History Persistent atrial fibrillation Medical History Benign prostatic hyp erplasia with lower urinary tract symptoms Medical History Obstructive sleep apnea Medical History Subclinical hypothyroidism Medical History Elevated cholesterol Surgical History COLONOSCOPY 2017 Hospitalization History SEE SURGICAL HX Room n House Other Reason for referral (narrative)* Outpatient Procedure (Routine) - Authorized Specialty Diagnoses / Procedures Referred By Kit acharya [facility] Diagnoses Under observation for suspected coronary artery disease Essential hypertension Persistent atrial fibrillation (HCC) Pulmonary hypertension, unspecified (HCC) Procedures ECHO ECHO TTHRC R-T 2D W/WOM-MODE COMPL SPEC&[place] [address] [place] [address] [facility] [address] [place] [address] Referral ID Status Reason Start Date Expiration Date Visits Requested Visits Authorized [id number] Authorized Auto-Generat ed Referral 11/09/2021 11/09/2022 1 1 * MRI/CT (Routine) - Open Specialty Diagnoses / Procedures Referred By Kit acharya Referred To Contact CT IMAGING Diagnoses Under observation for suspected coronary artery disease Abnormal nuclear stress test Procedures CTA CORONARY W IVCON CTA HRT CORNRY ART/BYPASS GRFTS CONTRST 3[place] [address] [place] [address] Ct Imaging Referral ID Status Reason Start Date Expiration Date V isits Requested Visits Authorized [id number] Open Auto-Generate d Referral 11/09/2021 12/09/2022 1 1 [facility] for referral (narrative)* Outpatient Procedure (Routine) - Authorized Specialty Diagnoses / Procedures Referred By Kit acharya Referred To [facility] Diagnoses Persistent atrial fibrillation (HCC) Procedures ECG COMPLETE ECG ROUTINE ECG W/LEAST 12 LDS W/I&R Jesse Longo MD [address] [place] [address] [facility] [address] [place] [address] Referral ID Status Reason Start Date Expiration Date Visits Requested Visits Authorized [id number] Authorized Auto-Generat ed Referral 11/09/2021 11/09/2022 1 1 [facility] for referral (narrative)* Outpatient Procedure (Routine) - Pending Review Specialty Diagnoses / Procedures Referred By Contac t Referred To [facility] Diagnoses Persistent atrial fibrillation (HCC) Procedures ECG COMPLETE ECG ROUTINE ECG W/LEAST 12 LDS W/I&R Jesse Longo MD [address] [place] [address] [facility] [address] [place] [id number] Referral ID Status Reason Start Date Expiration Date Visits Requested Visits Authorized [id number] Pending Review Auto-Generat ed Referral 05/10/2023 1 1 [facility] for referral (narrative)* Outpatient Procedure (Routine) - Authorized Specialty Diagnoses / Procedures Referred By Contac t Referred To [facility] Diagnoses Persistent atrial fibrillation (HCC) Procedures ECG COMPLETE ECG ROUTINE ECG W/LEAST 12 LDS W/I&R Jesse Longo MD [address] [place] [address] [facility] [address] [place] [id number] Referral ID Status Reason Start Date Expiration Date Visits Requested Visits Authorized [id number] Authorized Auto-Generat ed Referral 11/01/2022 11/01/2023 1 1 [facility] for referral (narrative)* Outpatient Procedure (Routine) - Authorized Specialty Diagnoses / Procedures Referred By Contac t Referred To Contact [facility] Diagnoses Persistent atrial fibrillation (HCC) Procedures ECG COMPLETE ECG ROUTINE ECG W/LEAST 12 LDS W/I&R Jesse Longo MD [address] [place] [address] [facility] [address] [address] Referral ID Status Reason Start Date Expiration Date Visits Requested Visits Authorized [id number] Authorized Auto-Generat ed Referral 01/17/2023 01/17/2024 1 1 [facility] for referral (narrative)* Outpatient Procedure (Routine) - Authorized Specialty Diagnoses / Procedures Referred By Contac t Referred To Contact [facility] Diagnoses Persistent atrial fibrillation (HCC) Procedures ECG COMPLETE ECG ROUTINE ECG W/LEAST 12 LDS W/I&R Layla Roger PA-C [address] [place] [address] [facility] [address] [address] Referral ID Status Reason Start Date Expiration Date Visits Requested Visits Authorized [id number] Authorized Auto-Generat ed Referral 11/08/2023 11/07/2024 1 1 * Outpatient Procedure (Routine) - Pending Review Specialty Diagnoses / Procedures Referred By Contac t Referred To Contact [facility] Diagnoses Persistent atrial fibrillation (HCC) Procedures ECG COMPLETE ECG ROUTINE ECG W/LEAST 12 LDS W/I&R Layla Roger PA-C [address] [place] [address] [facility] [address] [place] [address] Referral ID Status Reason Start Date Expiration Date Visits Requested Visits Authorized [id number] Pending Review Auto-Generat ed Referral 11/08/2023 11/07/2024 1 1 [facility] N[facility]* Outpatient Procedure (Routine) - Closed Specialty Diagnoses / Procedures Referred By Kit t [facility] Diagnoses Under observation for suspected coronary artery disease Essential hypertension Persistent atrial fibrillation (HCC) Pulmonary hypertension, unspecified (HCC) Procedures ECHO ECHO TTHRC R-T 2D W/WOM-MODE COMPL SPEC&[place] [address] [place] [address] [facility] [address] [place] [address] Referral ID Status Reason Start Date Expiration Date V isits Requested Visits Authorized [id number] Closed Auto-Generate d Referral 11/09/2021 11/09/2022 1 1 [facility] Summary Purpose Family History No Family History Records FoundNo Family History Records FoundNo Family History Records FoundNo Family History Records FoundNo Family History Records FoundNo Family History Records Found Advance Directives Documents on File Type Date Recorded Patient Records And Tape Recordings Engineer Expl anation Advance Directive(s) 08/15/2021 12:02 PM Advance Directive(s) 03/17/2021 12:00 PM Advance Directive(s) 03/08/2021 2:26 PM Documents on File Type Date Recorded Patient Records And Tape Recordings Engineer Expl anation Advance Directive(s) 08/15/2021 12:02 PM Advance Directive(s) 03/17/2021 12:00 PM Advance Directive(s) 03/08/2021 2:26 PM Documents on File Type Date Recorded Patient Records And Tape Recordings Engineer Expl anation Advance Directive(s) 12/05/2021 10:50 AM Advance Directive(s) 08/15/2021 12:02 PM Advance Directive(s) 03/17/2021 12:00 PM Advance Directive(s) 03/08/2021 2:26 PM Documents on File Type Date Recorded Patient Records And Tape Recordings Engineer Expl anation Advance Directive(s) 12/05/2021 10:50 AM Advance Directive(s) 08/15/2021 12:02 PM Advance Directive(s) 03/17/2021 12:00 PM Advance Directive(s) 03/08/2021 2:26 PM Reason for Referral Specialty Diagnoses / Procedures Referred By Contac t Referred To Contact CT IMAGING Diagnoses Under observation for suspected coronary artery disease Abnormal nuclear stress test Procedures CTA CORONARY W IVCON CTA HRT CORNRY ART/BYPASS GRFTS CONTRST 3[place] [address] [place] [address] Ct Imaging Referral ID Status Reason Start Date Expiration Date V isits Requested Visits Authorized [id number] Closed Auto-Generate d Referral 11/28/2021 12/29/2021 1 1 Medications Administered Section Inactive Administered Medications - up to 3 most recent administrations Medication Order MAR Action Action Date Dose Rate Site perflutren lipid microspheres 1.3 mL in NaCl (PF) 0.9% 10 mL injection (DEFINITY) INTRAVENOUS, DIRECTED NEEDED, 1 dose, Starting on Katia 11/09/21 at 0821, Until 12/13/21 at 1130, Per Protocol - for use during ECHO procedure only, If no IV access, insert saline lock prior to administering contrast. Discontinue saline lock post exam. If patient has central line or IVAD, may access for administration according to line specific nursing protocol. Once exam is complete, flush line and de-access per line specific nursing protocol.Dilute 1.3 ml of Definity with 8.7 ml of preservative-free saline. Given 12/13/2021 11:30 AM EDT 1 mL Hand, Right Inactive Administered Medications - up to 3 most recent administrations Medication Order MAR Action Action Date Dose Rate Site lidocaine (PF) 10 mg/mL (1 %) 4 mL injection (XYLOCAINE) 4 mL, Injection - FOR ORTHO USE ONLY, ONE TIME INJECTION, 1 dose, Starting on Sat03/06/22 at 1037, Until Sat03/06/22 at 1037 Given 03/06/2022 10:37 AM EDT 4 mL Knee, Left lidocaine (PF) 10 mg/mL (1 %) 4 mL injection (XYLOCAINE) 4 mL, Injection - FOR ORTHO USE ONLY, ONE TIME INJECTION, 1 dose, Starting on Sat03/06/22 at 1037, Until Sat03/06/22 at 1037 Given 03/06/2022 10:37 AM EDT 4 mL Knee, Right methylPREDNISolone acetate 40 mg injection (DEPO-Medrol) 40 mg, Injection - FOR ORTHO USE ONLY, ONE TIME INJECTION, 1 dose, Starting on Sat03/06/22 at 1037, Until Sat03/06/22 at 1037 Given 03/06/2022 10:37 AM EDT 40 mg Knee, Left methylPREDNISolone acetate 40 mg injection (DEPO-Medrol) 40 mg, Injection - FOR ORTHO USE ONLY, ONE TIME INJECTION, 1 dose, Starting on Sat03/06/22 at 1037, Until Sat03/06/22 at 1037 Given 03/06/2022 10:37 AM EDT 40 mg Knee, Right Additional Source Comments (unrecognized sect ion and content) No Status Records FoundNo Status Records FoundNo Status Records FoundNo Status Records FoundNo Status Records FoundNo Status Records Found INFORMATION SOURCE (unrecogn ized section and content) DATE CREATED AUTHOR 02/02/2020 [facility] DATE CREATED AUTHOR AUTHOR'S ORGANIZ ATION 08/04/2021 [facility] DATE CREATED AUTHOR AUTHOR'S ORGANIZ ATION 03/23/2022 [facility] DATE CREATED AUTHOR AUTHOR'S ORGANIZ ATION 10/12/2023 [facility] DATE CREATED AUTHOR AUTHOR'S ORGANIZ ATION 11/26/2023 [facility] DATE CREATED AUTHOR AUTHOR'S ORGANIZ ATION 12/03/2023 [facility] l Source Comments (unrecognize d section and content) In the event this informatio n is protected by the Federal Confidentiality of Alcohol and Drug Abuse Patient Records regulations: The Federal rules restrict any use of the information to criminally investigate or prosecute any alcohol or drug abuse patient.[facility] the event this information is protected by the Federal Confidentiality of Alcohol and Drug Abuse Patient Records regulations: The Federal rules restrict any use of the information to criminally investigate or prosecute any alcohol or drug abuse patient.[facility] HospitalIn the event this information is protected by the Federal Confidentiality of Alcohol and Drug Abuse Patient Records regulations: The Federal rules restrict any use of the information to criminally investigate or prosecute any alcohol or drug abuse patient.[facility] HospitalIn the event this information is protected by the Federal Confidentiality of Alcohol and Drug Abuse Patient Records regulations: The Federal rules restrict any use of the information to criminally investigate or prosecute any alcohol or drug abuse patient.[facility] HospitalIn the event this information is protected by the Federal Confidentiality of Alcohol and Drug Abuse Patient Records regulations: The Federal rules restrict any use of the information to criminally investigate or prosecute any alcohol or drug abuse patient.[facility] HospitalIn the event this information is protected by the Federal Confidentiality of Alcohol and Drug Abuse Patient Records regulations: The Federal rules restrict any use of the information to criminally investigate or prosecute any alcohol or drug abuse patient.[facility] HospitalIn the event this information is protected by the Federal Confidentiality of Alcohol and Drug Abuse Patient Records regulations: The Federal rules restrict any use of the information to criminally investigate or prosecute any alcohol or drug abuse patient.[facility] HospitalIn the event this information is protected by the Federal Confidentiality of Alcohol and Drug Abuse Patient Records regulations: The Federal rules restrict any use of the information to criminally investigate or prosecute any alcohol or drug abuse patient.[facility] HospitalIn the event this information is protected by the Federal Confidentiality of Alcohol and Drug Abuse Patient Records regulations: The Federal rules restrict any use of the information to criminally investigate or prosecute any alcohol or drug abuse patient.[facility] HospitalIn the event this information is protected by the Federal Confidentiality of Alcohol and Drug Abuse Patient Records regulations: The Federal rules restrict any use of the information to criminally investigate or prosecute any alcohol or drug abuse patient.[facility] HospitalIn the event this information is protected by the Federal Confidentiality of Alcohol and Drug Abuse Patient Records regulations: The Federal rules restrict any use of the information to criminally investigate or prosecute any alcohol or drug abuse patient.[facility] HospitalIn the event this information is protected by the Federal Confidentiality of Alcohol and Drug Abuse Patient Records regulations: The Federal rules restrict any use of the information to criminally investigate or prosecute any alcohol or drug abuse patient.[facility] HospitalIn the event this information is protected by the Federal Confidentiality of Alcohol and Drug Abuse Patient Records regulations: The Federal rules restrict any use of the information to criminally investigate or prosecute any alcohol or drug abuse patient.[facility] HospitalIn the event this information is protected by the Federal Confidentiality of Alcohol and Drug Abuse Patient Records regulations: The Federal rules restrict any use of the information to criminally investigate or prosecute any alcohol or drug abuse patient.[facility] HospitalIn the event this information is protected by the Federal Confidentiality of Alcohol and Drug Abuse Patient Records regulations: The Federal rules restrict any use of the information to criminally investigate or prosecute any alcohol or drug abuse patient.[facility] HospitalIn the event this information is protected by the Federal Confidentiality of Alcohol and Drug Abuse Patient Records regulations: The Federal rules restrict any use of the information to criminally investigate or prosecute any alcohol or drug abuse patient.[facility] HospitalIn the event this information is protected by the Federal Confidentiality of Alcohol and Drug Abuse Patient Records regulations: The Federal rules restrict any use of the information to criminally investigate or prosecute any alcohol or drug abuse patient.[facility] HospitalIn the event this information is protected by the Federal Confidentiality of Alcohol and Drug Abuse Patient Records regulations: The Federal rules restrict any use of the information to criminally investigate or prosecute any alcohol or drug abuse patient.[facility] HospitalIn the event this information is protected by the Federal Confidentiality of Alcohol and Drug Abuse Patient Records regulations: The Federal rules restrict any use of the information to criminally investigate or prosecute any alcohol or drug abuse patient.[facility] HospitalIn the event this information is protected by the Federal Confidentiality of Alcohol and Drug Abuse Patient Records regulations: The Federal rules restrict any use of the information to criminally investigate or prosecute any alcohol or drug abuse patient.[facility] HospitalIn the event this information is protected by the Federal Confidentiality of Alcohol and Drug Abuse Patient Records regulations: The Federal rules restrict any use of the information to criminally investigate or prosecute any alcohol or drug abuse patient.[facility] HospitalIn the event this information is protected by the Federal Confidentiality of Alcohol and Drug Abuse Patient Records regulations: The Federal rules restrict any use of the information to criminally investigate or prosecute any alcohol or drug abuse patient.[facility] HospitalIn the event this information is protected by the Federal Confidentiality of Alcohol and Drug Abuse Patient Records regulations: The Federal rules restrict any use of the information to criminally investigate or prosecute any alcohol or drug abuse patient.[facility] HospitalIn the event this information is protected by the Federal Confidentiality of Alcohol and Drug Abuse Patient Records regulations: The Federal rules restrict any use of the information to criminally investigate or prosecute any alcohol or drug abuse patient.[facility] HospitalIn the event this information is protected by the Federal Confidentiality of Alcohol and Drug Abuse Patient Records regulations: The Federal rules restrict any use of the information to criminally investigate or prosecute any alcohol or drug abuse patient.[facility] HospitalIn the event this information is protected by the Federal Confidentiality of Alcohol and Drug Abuse Patient Records regulations: The Federal rules restrict any use of the information to criminally investigate or prosecute any alcohol or drug abuse patient.[facility] HospitalIn the event this information is protected by the Federal Confidentiality of Alcohol and Drug Abuse Patient Records regulations: The Federal rules restrict any use of the information to criminally investigate or prosecute any alcohol or drug abuse patient.[facility] HospitalIn the event this information is protected by the Federal Confidentiality of Alcohol and Drug Abuse Patient Records regulations: The Federal rules restrict any use of the information to criminally investigate or prosecute any alcohol or drug abuse patient.[facility] HospitalIn the event this information is protected by the Federal Confidentiality of Alcohol and Drug Abuse Patient Records regulations: The Federal rules restrict any use of the information to criminally investigate or prosecute any alcohol or drug abuse patient.[facility] HospitalIn the event this information is protected by the Federal Confidentiality of Alcohol and Drug Abuse Patient Records regulations: The Federal rules restrict any use of the information to criminally investigate or prosecute any alcohol or drug abuse patient.[facility] HospitalIn the event this information is protected by the Federal Confidentiality of Alcohol and Drug Abuse Patient Records regulations: The Federal rules restrict any use of the information to criminally investigate or prosecute any alcohol or drug abuse patient.[facility] HospitalIn the event this information is protected by the Federal Confidentiality of Alcohol and Drug Abuse Patient Records regulations: The Federal rules restrict any use of the information to criminally investigate or prosecute any alcohol or drug abuse patient.[facility] HospitalIn the event this information is protected by the Federal Confidentiality of Alcohol and Drug Abuse Patient Records regulations: The Federal rules restrict any use of the information to criminally investigate or prosecute any alcohol or drug abuse patient.[facility] HospitalIn the event this information is protected by the Federal Confidentiality of Alcohol and Drug Abuse Patient Records regulations: The Federal rules restrict any use of the information to criminally investigate or prosecute any alcohol or drug abuse patient.[facility] HospitalIn the event this information is protected by the Federal Confidentiality of Alcohol and Drug Abuse Patient Records regulations: The Federal rules restrict any use of the information to criminally investigate or prosecute any alcohol or drug abuse patient.[facility] Reason for Visit (unrecogniz ed section and content) Reason Comments Follow Up Reason Comments Follow Up Reason Comments Orders Reason Comments Results Orders Specialty Diagnoses / Procedures Referred By Contac t Referred To Contact CT IMAGING Diagnoses Under observation for suspected coronary artery disease Abnormal nuclear stress test Procedures CTA CORONARY W IVCON CTA HRT CORNRY ART/BYPASS GRFTS [place] [address] [address] [place] [address] Ct Imaging Referral ID Status Reason Start Date Expiration Date V isits Requested Visits Authorized [id number] Closed Auto-Generate d Referral 11/28/2021 12/29/2021 1 1 Reason Comments Refill Request Reason Comments Osteoarthritis Reason Comments Atrial Fibrillation Reason Comments Follow Up Reason Comments Post Op Bleeding Bruising Reason Comments Patient Update Reason Comments Atrial Fibrillation Reason Comments Follow Up Follow up s/p dcc Reason Comments Established Patient Reason Comments A-fib Reason Comments Procedure Cardioversion Reason Comments Nurse Visit Specialty Diagnoses / Procedures Referred By Contac t [facility]erred To [facility] Diagnoses Persistent atrial fibrillation (HCC) Procedures ECG COMPLETE ECG ROUTINE ECG W/LEAST 12 LDS W/I&R Layla Roger PA-C [address] [place] [address] [facility] [address] [place] [address] Referral ID Status Reason Start Date Expiration Date V isits Requested Visits Authorized [id number] Closed Auto-Generate d Referral 11/08/2023 11/07/2024 1 1 Reason Comments Patient is Back in Afib Care Teams (unrecognized sec tion and content) Insurance Operations Rep Relationship Specialty Start Date End Date Tae Martinez, DO [address] [place] [address] PCP - General Internal Medicine 03/08/21 Insurance Operations Rep Relationship Specialty Start Date End Date Tae Martinez, DO [address] [place] [address] PCP - General Internal Medicine 03/08/21 Insurance Operations Rep Relationship Specialty Start Date End Date Tae Martinez, DO [address] [place] [address] PCP - General Internal Medicine 03/08/21 Insurance Operations Rep Relationship Specialty Start Date End Date Tae Martinez, DO [address] [place] [address] PCP - General Internal Medicine 03/08/21 Insurance Operations Rep Relationship Specialty Start Date End Date Tae Martinez, DO [address] [place] [address] PCP - General Internal Medicine 03/08/21 Insurance Operations Rep Relationship Specialty Start Date End Date Tae Martinez, DO [address] [place] [address] PCP - General Internal Medicine 03/08/21 Insurance Operations Rep Relationship Specialty Start Date End Date Tae Martinez, DO [address] [place] [address] PCP - General Internal Medicine 03/08/21 Insurance Operations Rep Relationship Specialty Start Date End Date Tae Martinez, DO [address] [place] [address] PCP - General Internal Medicine 03/08/21 Insurance Operations Rep Relationship Specialty Start Date End Date Tae Martinez, DO [address] [place] [address] PCP - General Internal Medicine 03/08/21 Insurance Operations Rep Relationship Specialty Start Date End Date Tae Martinez, DO [address] [place] [address] PCP - General Internal Medicine 03/08/21 Insurance Operations Rep Relationship Specialty Start Date End Date Tae Martinez, DO [address] [place] [address] PCP - General Internal Medicine 03/08/21 Insurance Operations Rep Relationship Specialty Start Date End Date Tae Martinez, DO [address] [place] [address] PCP - General Internal Medicine 03/08/21 Insurance Operations Rep Relationship Specialty Start Date End Date Tae Martinez, DO [address] [place] [address] PCP - General Internal Medicine 03/08/21 Insurance Operations Rep Relationship Specialty Start Date End Date Tae Martinez, DO [address] [place] [address] PCP - General Internal Medicine 03/08/21 Insurance Operations Rep Relationship Specialty Start Date End Date Tae Martinez, DO [address] [facility] [place] [address] PCP - General Internal Medicine 03/08/21 Insurance Operations Rep Relationship Specialty Start Date End Date Tae Martinez, DO [address] [facility] [place] [address] PCP - General Internal Medicine 03/08/21 Insurance Operations Rep Relationship Specialty Start Date End Date Tae Martinez DO [address] [facility] [place] [address] PCP - General Internal Medicine 03/08/21 Insurance Operations Rep Relationship Specialty Start Date End Date Tae Martinez DO [address] [facility] [place] [address] PCP - General Internal Medicine 03/08/21 Insurance Operations Rep Relationship Specialty Start Date End Date Tae Martinez DO [address] [facility] [place] [address] PCP - General Internal Medicine 03/08/21 Insurance Operations Rep Relationship Specialty Start Date End Date Tae Martinez DO [address] [facility] [place] [address] PCP - General Internal Medicine 03/08/21 Insurance Operations Rep Relationship Specialty Start Date End Date Tae Martinez DO [address] [facility] [place] [address] PCP - General Internal Medicine 03/08/21 Insurance Operations Rep Relationship Specialty Start Date End Date Tae Martinez DO [address] [place] [address] PCP - General Internal Medicine 03/08/21 Insurance Operations Rep Relationship Specialty Start Date End Date JuanTaeDO [address] [place] [address] PCP - General Internal Medicine 03/08/21 FOR RECORDS PERTAINING TO PATIENTS WHO ARE OR HAVE BEEN ENROLLED IN A CHEMICAL DEPENDENCY/SUBSTANCEABUSE PROGRAM, SOME INFORMATION MAY BE OMITTED. This clinical summary was aggregated from multiple sources. Caution should be exercised in using it in the provision of clinical care. This summary normalizes information from multiple sources, and as a consequence, information in this document may materially change the coding, format and clinical context of patient data. In addition, data may be omitted in some cases. CLINICAL DECISIONS SHOULD BE BASED ON THE PRIMARY CLINICAL RECORDS. [facility]. provides no warranty or guarantee of the accuracy or completeness of information in this document.
== END 2023-12-23 11:32 | disposition home or self-care (01) ==
LOC: LAB 11:32
PROVIDERS: PCP Internal Medicine; Visit Provider Internal Medicine
DX: M25.512 Pain in left shoulder (principal)
CPT/HCPCS: 73030

== ENCOUNTER 2024-02-29 09:09 | Outpatient (OUT) | payer OTHER, SELFPAY ==
--- OUTSIDE RECORDS SUMMARY | 2024-02-29 09:13 | XMS_ITS | CCD ---
Author Organization [facility] Care Team Providers Care Milk Of Lime Slaker Name Role Phone Tae Martinez DO Primary Care Provider JUAN, DR IRAHETA Primary Care Unavailable BALL, DR IRAHETA Admitting Unavailable BALL, DR IRAHETA Attending Unavailable BALL, DR IRAHETA Consulting Unavailable BALL, DR IRAHETA Admitting Unavailable BALL, DR IRAHETA Attending Unavailable JUAN, DR IRAHETA Consulting Unavailable JUAN, DR IRAHETA Primary Care Unavailable Tae Martinez DO Primary Care Provider Tae Martinez DO Primary Care Provider Tae Martinez Unavailable LAYLA ROGER Referring Unavailable TAE MARTINEZ Primary Care Unavailable Tae Martinez DO Primary Care Provider JESSE LONGO Admitting Unavaila JESSE Blair Attending Unavaila ble TAE MARTINEZ Primary Care Unavailable ARCHANA HARKINS Admitting Unavailable ARCHANA HARKINS Attending Unavailable TAE MARTINEZ Primary Care Unavailable TAE MARTINEZ Primary Care Unavailable JESSE LONGO Attending Unavaila CARLOS Díaz Referring Unavailable TAE MARTINEZ Primary Care Unavailable CARLOS GARCIA Attending Unavailable TAE MARTINEZ Primary Care Unavailable JESSE LONGO Attending Unavaila ble TAE MARTINEZ Primary Care Unavailable JESSE LONGO Attending Unavaila ble TAE MARTINEZ Primary Care Unavailable TAE MARTINEZ Primary Care Unavailable TAE MARTINEZ Primary Care Unavailable LAYLA ROGER Referring Unavailable TAE MARTINEZ Primary Care Unavailable LAYLA ROGER Attending Unavailable TAE MARTINEZ Primary Care Unavailable LAYLA ROGER Attending Unavailable Allergies Allergy Classification Reported Allergen(s) Allergy Type Date of Onset Reaction(s) Facility (13 sources) Penicillins; Translations: [PENICILLINS] Drug Allergy 03-20-20 19 [facility] (20 sources) Sulfonamides (Antibiotic); Translations: [SULFA (SULFONAMIDE ANTIBIOTICS)] Drug Allergy 03-20-20 19 [facility] (20 sources) Penicillins Drug Allergy 03-20-20 [facility] (1 source) Penicillins Drug allergy (disorder) [facility] (1 source) Sulfonamides (Antibiotic) Drug allergy (disorder) [facility] (1 source) Sulf-10 Drug allergy Unknown [employer] Other (1 source) patient allergy list reviewed by nurse or physicia Propensity to adverse reactions 02-16-20 14 Comment:Done [employer] Other (2 sources) penicillAMINE Drug Allergy Unknown [employer] Other Medications Current Medications Medication Drug Class(es) [...] day Active ezetimibe 10 mg oral tablet (12 sources) Dietary Cholesterol Absorption Inhibitor Start: 05-21-2023 take 1 tablet by mouth once daily ezetimibe (ZETIA) 10 mg tablet Take 1 tablet by mouth once daily. 90 tablet 3 05/21/2023 Active Comment on above: [facility] flecainide acetate 100 mg oral tablet (7 sources) Antiarrhythmic Start: 11-08-2023 End: 02-03-2024 take 1 tablet by mouth twice daily flecainide (TAMBOCOR) 100 mg tablet take 1 tablet by mouth two times a day. 180 tablet 3 02/03/2024 Active glucosamine/chondr prieto A sod (OSTEO BI-FLEX ORAL) (20 sources) take 2 tablets by mouth once glucosamine/chond r prieto A sod (OSTEO BI-FLEX ORAL) Take 2 tablets by mouth one time only. 0 Active glucosamine/zuri dr prieto A sod (OSTEO BI-FLEX ORAL) Take by mouth twice daily. 0 Active Comment on above: Take by mouth twice daily. Take 2 tablets by mo [facility] one time only. iv contrast (will be [...] oral tablet (20 sources) beta-Adrenergic Leia Start: 024 End: 025 take 0.5 tablet by mouth once daily at bedtime metoprolol succinate ER (TOPROL XL) 25 mg 24 hr tablet Take 0.5 tablets by mouth daily at bedtime. 45 tablet 3 01/09/2024 Active Start: 11-27-2023 End: 12-20-2023 take 0.5 [...] mL injection (DEFINITY) (7 sources) Start: 11-10-19 End: 02-09-20 23 perflutren lipid microspheres 1.3 mL in NaCl (PF) 0.9% 10 mL injection (DEFINITY) rosuvastatin calcium 40 mg oral tablet (20 sources) HMG-CoA Reductase Inhibitor Start: 05-13-20 End: 04-25-20 rosuvastatin (CRESTOR) 40 mg tablet take 1 [...] mg/ml prefilled syringe (20 sources) Start: 03-03-20 End: 02-09-20 sodium chloride 0.9 % (flush) 10 mL [...] on above: Take 1 tablet by hansel four times daily. ubidecarenone 200 mg oral [...] Take 1 tablet by hansel once daily. Completed/Discontinued Medications Medication Drug Class(es) [...] Coronary atherosclerosis; Translations: [Atherosclerotic heart disease of [place] coronary artery without angina pectoris] Onset: 05-20-2023 [...] current use of drug therapy; Translations: [Other penitentiary (current) drug therapy] Episodic Other aftercare (1 source) 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; Translations: [manager terminal (current) use of anticoagulants] 11-08-2023 Episodic Other [...] apnea (adult) (pediatric) Chronic Residual codes; unclassified (7 sources) Sleep apnea; Translations: [Sleep apnea, unspecified] [...] Test Name Value Interpretation Reference Range Facility [facility] 01-09-2024 CNOV Office Visit (CAEPLN ) CATY KOHLI ([id number]) 1960 [place]* Date Time Provider Department 01/09/24 11:00 AM JESSE LONGO CAEPLN During your visit today, we recorded the following information about you: Pulse Blood pressure Weight 52/minute 134/78 98.4 kg Jesse Longo MD 01/09/2024 11:13 AM Signed [facility] [place] SECTION OF REGIONAL CARDIOLOGY OUTPATIENT VISIT DATE January 09, 2024 OUTPATIENT VISIT TYPE ESTABLISHED PRIMARY CARE PHYSICIAN: Tae Martinez ([facility]) [facility] [place] [address] CHIEF COMPLAINT: Persistent Afib. HISTORY OF PRESENT ILLNESS: Mr. Kohli is a 63 year old male with persistent AF s/p ablation but has recurrence recurring repeat DCCV x 2. IMPRESSION: Persistent AF: S/p PVI + PWI but with early recurrence requiring DCCV x2. Feels better in sin us rhythm. On flecainide. ECG today showed sinus bradycardia. We discussed the management options. Continue medical therapy as is for now. Reduce dose of metoprolol to 12.5 mg daily. Follow up in 6 months. If any further recurrence before then, we consider for re-do ablation. Stroke prevention: On Eliquis. Had a fall twice with significant bleeding. CHADsVasc is 2. Willing to consider watchman should it be indicated if any other future falls or bleeding. PLAN AND RECOMMENDATIONS: Persistent AF: S/p PVI + PWI but with early recurrence requiring DCCV x2. Feels better in sin us rhythm. On flecainide. ECG today showed sinus bradycardia. We discussed the management options. Continue medical therapy as is for now. Reduce dose of metoprolol to 12.5 mg daily. Follow up in 6 months. If any further recurrence before then, we consider for re-do ablation. Stroke prevention: On Eliquis. Had a fall twice with significant bleeding. CHADsVasc is 2. Willing to consider watchman should it be indicated if any other future falls or bleeding. PHYSICAL EXAMINATION: There were no vitals taken for this visit. HEENT: normocephalic, EOMI Heart: regular rhythm Lungs: clear to auscultation Abdomen: bowel sounds present Extremities: no edema Musculoskeletal: chest wall nontender Neurological: alert and oriented Psychiatric: appropriate and cooperative Skin: no rash, cellulitis or lesions appreciated CARDIOVASCULAR MEDICINE TESTING: I have personally reviewed ECG Last EKG Result Conclusion ECG COMPLETE Collected: 11/27/2023 9:40 AM (Edited Result - FINAL) Impression: Sinus bradycardia Abnormal R-wave progression, late transition Inferior infarct, old Abnormal ECG Confirmed by ARCHANA HARKINS M.D. ([id number]) on 12/01/2023 9:51:31 PM PAST CARDIAC HISTORY: See below PAST [...] Never used Substance Use Topics Alcohol use: Not Currently Comment: rare Drug use: Never FAMILY HISTORY Problem Relation Age of Onset Coronary Artery Disease Father 57 smoker; shortage worker Emphysema Paternal Grandfather ALLERGIES Allergen Reactions Penicillins Rash Sulfa (Sulfonamide * Swelling CURRENT MEDICATIONS: metoprolol succinate ER (TOPROL XL) 25 mg 24 hr tablet Take 1 tablet by mouth daily at bedtime. flecainide (TAMBOCOR) 100 mg tablet Take 1 tablet by mouth two times a day. ezetimibe (ZETIA) 10 mg tablet Take 1 [...] mouth once daily. Allergies As of Date: 01/09/2024 Noted Allergy Reaction PENICILLINS 03/20/2019 2 - Rash SULFA (SULFONAMIDE ANTIBIOTICS) (more content not included)... Normal [facility] ECG COMPLETEon 01-09-2024 ECG COMPLETE Ventricular Rate : 5 2 BPM Atrial Rate : 52 BPM P-R Interval : 198 ms QRS Duration : 116 ms Q-T Interval : 462 ms QTC Calculation(Bazett) : 429 ms Calculated P [place] : 51 degrees Calculated R [place] : -50 degrees Calculated T [place] : 28 degrees SINUS BRADYCARDIA LEFT AXIS DEVIATION NONSPECIFIC INTRAVENTRICULAR CONDUCTION DELAY Confirmed by LINDA URIBNA MD ([id number]) on 01/15/2024 10:35:57 AM NAME : CATY KOHLI PID : [id number] : 1960 Gender : Male Race : ORD : [id number] Procedure Date : Jan 09 2024 11:02:15 Edit Date : Jan 15 2024 10:36:01 Diagnosis: SINUS BRADYCARDIA LEFT AXIS DEVIATION NONSPECIFIC INTRAVENTRICULAR CONDUCTION DELAY Confirmed by LINDA URBINA MD ([id number]) on 01/15/2024 10:35:57 AM Test Reason : I48.19 Persistent atrial fibrillation (HCC) Location : 145 : LOCARD Overread By : LINDA URBINA MD Edited By : LINDA URBINA MD Referred By : Donta Acquired by : Clemencia conteh [facility] ANES POSTPROC EVALon 024 ANES POSTPROC EVAL HNO ID: [id number] Author: ANTOINETTE COSBY MD Service: Critical Care [...] November 27, 2023 TIME: 10:49 AM CSN: [id number] [facility] ANES PRE-OPon 11-27-2023 ANES PRE-OP HNO ID: [id number] Author: ANTOINETTE COSBY MD Service: Critical Care [...] and consent discussed: yes. Patient / Responsible Constitution Party agrees to proceed: yes Patient / Surrogate [...] November 27, 2023 TIME: 8:36 AM CSN: [id number] Normal [facility] BRIEF OP NOTon 11-27-2023 BRIEF OP NOT HNO ID: [id number] Author: ARCHANA HARIKNS MD Service: Electrophysiology Author Type: Physician Type: Brief Op Note Filed: 11/27/2023 09:52 Note Text: Uneventful cardioversion of AF to sinus bradycardia under MAC. Normal [facility] ECG COMPLETEon 11-27-2023 ECG COMPLETE Ventricular Rate : 4 4 BPM Atrial Rate : 44 BPM P-R Interval : 203 ms QRS Duration : 110 ms Q-T Interval : 486 ms QTC Calculation(Bazett) : 416 ms Calculated P [place] : 12 degrees Calculated R [place] : -47 degrees Calculated T [place] : -10 degrees Sinus bradycardia Abnormal R-wave progression, late transition Inferior infarct, old Abnormal ECG Confirmed by ARCHANA HARKINS M.D. ([id number]) on 12/01/2023 9:51:31 PM NAME : CATY KOHLI PID : [id number] : 1960 Gender : Male Race : ORD : [id number] Procedure Date : Nov 27 2023 09:40:31 [...] Referred By : , Acquired by : [facility], [facility] ECG COMPLETE Ventricular Rate : 8 4 BPM Atrial Rate : 0 BPM P-R Interval : 191 ms QRS Duration : 113 ms Q-T Interval : 412 ms QTC Calculation(Bazett) : 488 ms Calculated R [place] : -54 degrees Calculated T [place] : 11 degrees Atrial fibrillation Incomplete left bundle branch block Inferior infarct, old Baseline wander in lead(s) V1 Abnormal ECG Confirmed by ARCHANA HARKINS M.D. ([id number]) on 12/01/2023 9:47:55 PM NAME : CATY KOHLI PID : [id number] : 1960 Gender : Male Race : ORD : [id number] Procedure Date : Nov 27 2023 08:25:30 [...] Referred By : , Acquired by : [facility], [facility] NURSING PROGon 11-27-2023 NURSING PROG HNO ID: [id number] Author: TWILA PIERRE RN Service: Nursing Author Type: Registered Nurse Type: Nursing Progress Note Filed: 11/27/2023 11:06 Note Text: Nursing Progress Note Topic of Note: post procedure PATIENT NAME: Caty Kohli Patient Location: TECHNICAL HEALTHCARE CONSULTANT POOL/ TECHNICAL HEALTHCARE CONSULTANT POOL Room: TECHNICAL HEALTHCARE CONSULTANT POOL ( INVASIVE CARDIOLOGY) Pt in ICRR [...] note was completed by: Twila Pierre Normal [facility] Basic metabolic 2000 panelon 11-25-2023 Anion gap [Moles/Vol] 8 mmol/L Low 9-18 [facility] Comment on above: Order Comment: Speci men Type: BLOOD SPECIMENOrdering Facility: [facility] Address: [address] [place] [address] Performed By: #### 2 4321-2, ####[facility] LABCLIA [id number] [place] [address] Calcium [Mass/Vol] 10.0 mg/dL Normal 8.5-10.2 [facility] Comment on above: Order Comment: Speci men Type: BLOOD SPECIMENOrdering Facility: [facility] Address: [address] [place] [address] Performed By: #### 2 4321-2, ####[facility] LABIA [id number] [place] [address] Chloride [Moles/Vol] 106 mmol/L High 97-105 [facility] Comment on above: Order Comment: Speci men Type: BLOOD SPECIMENOrdering Facility: [facility] Address: [address] [place] [address] Performed By: #### 2 4321-2, ####[facility] LABCLIA [id number] [place] [address] CO2 [Moles/Vol] 27 mmol/L Normal 22-30 [facility] Comment on above: Order Comment: Speci men Type: BLOOD SPECIMENOrdering Facility: [facility] Address: [address] [place] [address] Performed By: #### 2 432-2, ####[facility] LABCLIA [id number] [place] [address] Creatinine [Mass/Vol] 0.82 mg/dL Normal 0.73-1.22 [facility] Comment on above: Order Comment: Speci men Type: BLOOD SPECIMENOrdering Facility: [facility] Address: [address] [place] [address] Performed By: #### 2 4321-2, ####[facility] LABCLIA [id number] [place] [address] Creatinine and Glomerular filtration rate.predicted panel (S/P/Bld) 97 mL/min/1.73m??? Normal >=60 [facility] Comment on above: Order Comment: Luh vivian Type: BLOOD SPECIMENOrdering Facility: [facility] Address: [address] [place] [address] Result Comment: June mated Glomerular Filtration Rate [...] actual GFR. Performed By: #### 2 4321-2, ####[facility] LABCLIA [id number] [place] [address] Glucose [Mass/Vol] 101 mg/dL High 74-99 [facility] Comment on above: Order Comment: [place] Type: BLOOD SPECIMENOrdering Facility: [facility] Address: [address] [place] [address] Result Comment: The [place] [employer] (ADA) provides guidance for cutoff [...] Standards of Medical Care in Diabetes 2016, [place] [employer]. Diabetes Care. 2016.39(Suppl 1). Performed By: #### 2 4321-2, ####[facility] LABCLIA [id number] [place] [address] Potassium [Moles/Vol] 4.7 mmol/L Normal 3.7-5.1 [facility] Comment on above: Order Comment: Speci men Type: BLOOD SPECIMENOrdering Facility: [facility] Address: [address] [place] [address] Performed By: #### 2 432-2, ####[facility] LABCLIA [id number] [place] [address] Sodium [Moles/Vol] 141 mmol/L Normal 136-144 [facility] Comment on above: Order Comment: Speci men Type: BLOOD SPECIMENOrdering Facility: [facility] Address: [address] [place] [address] Performed By: #### 2 432-2, ####[facility] LABCLIA [id number] [place] [address] Urea nitrogen [Mass/Vol] 16 mg/dL Normal 9-24 [facility] Comment on above: Order Comment: Speci men Type: BLOOD SPECIMENOrdering Facility: [facility] Address: [address] [place] [address] Performed By: #### 2 432-2, ####[facility] LABCLIA [id number] [place] [address] CBC panel Auto (Bld)on 11-24 Erythrocyte distribution width (RBC) [Ratio] 13.2 % Normal 11.5-15.0 [facility] Comment on above: Order Comment: Speci men Type: BLOOD SPECIMENOrdering Facility: [facility] Address: [address] [place] [address] Performed By: #### 5 8410-2 ####[facility] LABCLIA [id number] [place] [address] Hematocrit (Bld) [Volume fraction] 44.2 % Normal 39.0-51.0 [facility] Comment on above: Order Comment: Speci men Type: BLOOD SPECIMENOrdering Facility: [facility] Address: [address] [place] [address] Performed By: #### 5 8410-2 ####[facility] LABCLIA [id number] [place] [address] Hemoglobin (Bld) [Mass/Vol] 14.7 g/dL Normal 13.0-17.0 [facility] Comment on above: Order Comment: Speci men Type: BLOOD SPECIMENOrdering Facility: [facility] Address: [address] [place] [address] Performed By: #### 5 8410-2 ####[facility] LABCLIA [id number] [place] [address] MCH (RBC) [Entitic mass] 30.1 pg Normal 26.0-34.0 [facility] Comment on above: Order Comment: Speci men Type: BLOOD SPECIMENOrdering Facility: [facility] Address: [address] [place] [address] Performed By: #### 5 8410-2 ####[facility] LABCLIA [id number] [place] [address] MCHC (RBC) [Mass/Vol] 33.3 g/dL Normal 30.5-36.0 [facility] Comment on above: Order Comment: Speci men Type: BLOOD SPECIMENOrdering Facility: [facility] Address: [address] [place] [address] Performed By: #### 5 8410-2 ####[facility] LABCLIA [id number] [place] [address] MCV (RBC) [Entitic vol] 90.4 fL Normal 80.0-100.0 [facility] Comment on above: Order Comment: Speci men Type: BLOOD SPECIMENOrdering Facility: [facility] Address: [address] [place] [address] Performed By: #### 5 8410-2 ####[facility] LABCLIA [id number] [place] [address] Nucleated RBC (Bld) [#/Vol] 10*3/uL Normal <0.01 [facility] Comment on above: Order Comment: Speci men Type: BLOOD SPECIMENOrdering Facility: [facility] Address: [address] [place] [address] Performed By: #### 5 8410-2 ####[facility] LABCLIA [id number] [place] [address] Platelet mean volume (Bld) [Entitic vol] 9.8 fL Normal 9.0-12.7 [facility] Comment on above: Order Comment: Speci men Type: BLOOD SPECIMENOrdering Facility: [facility] Address: [address] [place] [address] Performed By: #### 5 8410-2 ####[facility] LABCLIA [id number] [place] [address] Platelets (Bld) [#/Vol] 223 10*3/uL Normal 150-400 [facility] Comment on above: Order Comment: Speci men Type: BLOOD SPECIMENOrdering Facility: [facility] Address: [address] [place] [address] Performed By: #### 5 8410-2 ####[facility] LABCLIA [id number] [place] [address] RBC (Bld) [#/Vol] 4.89 10*6/uL Normal 4.20-6.00 [facility] Comment on above: Order Comment: Speci men Type: BLOOD SPECIMENOrdering Facility: [facility] Address: [address] [place] [address] Performed By: #### 5 8410-2 ####[facility] LABCLIA [id number] [place] [address] WBC (Bld) [#/Vol] 8.76 10*3/uL Normal 3.70-11.00 [facility] Comment on above: Order Comment: Speci men Type: BLOOD SPECIMENOrdering Facility: [facility] Address: [address] [place], [place] [address] Performed By: #### 5 8410-2 ####[facility] LABCLIA [id number] [place] [address] Magnesium SerPl-mCncon 11-24 Magnesium [Mass/Vol] 2.2 mg/dL Normal 1.7-2.3 [facility] Comment on above: Order Comment: Speci men Type: BLOOD SPECIMENOrdering Facility: [facility] Address: [address] [place], [place] [address] Performed By: #### 2 4321-2, 22691-1 ####[facility] LABCLIA [id number] [place] [address] [facility] CATY KOHLI ([id number]) 1960 [place]* Date Time Provider Department 11/21/23 LAYLA ROGER CAEPDES During your visit today, [...] [facility] 9[facility]14 AM Signed Called and left [...] fibrillation (HCC) [I48.19] Order(s):CARDIOVERSIO N, ELECTIVE, ELECTRICAL [15624FSV] Order #: [id number]: 1 COMPLETE BLOOD COUNT [SQCBC] Order #: [id number] FUTURE BASIC METABOLIC PANEL [SQBMP] Order #: [id number] FUTURE MAGNESIUM [SQMG1] Order #: [id number] FUTURE Prescriptions as of 11/21/2023 - flecainide [...] Encounter Status:Closed by LAYLA ROGER on 11/21/[address] [facility] CNOVon 11-15-2023 CNOV Office Visit (CARDAV ) CATY KOHLI ([id number]) 1960 [facility]* Date Time Provider Department 11/15/23 8:30 AM NURSE CARD [facility] REJ CARDDES During your visit today, we recorded the following information about you: Katlyn Orellana RN 11/15/2023 8:43 AM Signed Pt here for EKG . Pt was started on new medication last week and here for follow up EKG. Pt with no symptoms . Provider notified of completion Referring Provider: LAYLA ROGER [[id number]] Allergies As of Date: 11/15/2023 Noted Allergy Reaction PENICILLINS 03/20/2019 2 - Rash SULFA (SULFONAMIDE ANTIBIOTICS) 03/20/2019 7 - Swelling Date Reviewed: 11/08/2023 Reviewed by: Mary Santo LPN - Fully Assessed Reason for Visit: Nurse Visit [792] Visit Diagnosis:Persistent atrial fibrillation (HCC) [I48.19] Order(s):ECG COMPLETE [ECG01] Order #: [id number] Prescriptions as of 11/15/2023 - flecainide (TAMBOCOR) [...] Status:Closed by KATLYN ORELLANA on 11/15/[address] [facility] [id number] 11-15-2023 ECG01 Ventricular Rate : 8 4 BPM QRS Duration : 106 ms Q-T Interval : 398 ms QTC Calculation(Bazett) : 470 ms Calculated R [place] : -62 degrees Calculated T [place] : 40 degrees ATRIAL FIBRILLATION LEFT ANTERIOR FASCICULAR BLOCK CANNOT EXCLUDE INFERIOR MYOCARDIAL INFARCTION (MASKED BY FASCICULAR BLOCK?) , AGE UNDETERMINED ABNORMAL ECG Confirmed by BRETT CHRISTIAN MD ([id number]) on 11/21/2023 8:01:38 PM NAME : CATY KOHLI PID : [id number] : 1960 Gender : Male Race : ORD : Procedure Date : Nov 15 2023 08:38:39 Edit Date : Nov 21 2023 20:05:18 Diagnosis: ATRIAL FIBRILLATION LEFT ANTERIOR FASCICULAR BLOCK CANNOT EXCLUDE INFERIOR MYOCARDIAL INFARCTION (MASKED BY FASCICULAR BLOCK?) , AGE UNDETERMINED ABNORMAL ECG Confirmed by BRETT CHRISTIAN MD ([id number]) on 11/21/2023 8:01:38 PM Test Reason : Location : 192 : AVCRD Overread By : BRETT CHRISTIAN MD Edited By : BRETT CHRISTIAN MD Referred By : LAYLA ROGER Acquired by : , Clemencia [facility] CNOVon 11-08-2023 CNOV Office Visit (CAEPAV ) CATY KOHLI ([id number]) 1960 [place]* Date Time Provider Department 11/08/23 4:00 PM LAYLA ROGER CAEPAV During your visit today, we recorded the following information about you: Pulse Blood pressure Weight Height 84/minute 132/80 99.3 kg 1.88 m Layla Roger PA-C 11/08/2023 4:34 PM Signed [facility] [place] Hipolito Mathis Department of Cardiovascular Medicine SECTION OF CARDIAC PACING and ELECTROPHYSIOLOGY OUTPATIENT VISIT DATE November 08, 2023 OUTPATIENT VISIT TYPE ESTABLISHED PRIMARY CARE PHYSICIAN: Tae Martinez ([place]) [address] [place] [address] CHIEF COMPLAINT: Cardiology follow up HISTORY OF [...] Onset Coronary Artery Disease Father 57 smoker; shortage worker Emphysema Paternal Grandfather ALLERGIES: ALLERGIES Allergen Reactions [...] no acu (more content not included)... Normal [facility] [id number] 11-08-2023 ECG01 Ventricular Rate : 8 4 BPM QRS Duration : 102 ms Q-T Interval : 382 ms QTC Calculation(Bazett) : 451 ms Calculated R [place] : -71 degrees Calculated T [place] : 49 degrees ATRIAL FIBRILLATION LEFT AXIS DEVIATION INFERIOR MYOCARDIAL INFARCTION , AGE UNDETERMINED ABNORMAL ECG Confirmed by BRETT CHRISTIAN MD ([id number]), supervising film or videotape editor KATLYN ORELLANA ([id number]) on 11/11/2023 2:50:56 PM NAME : CATY KOHLI PID : [id number] : 1960 Gender : Male Race : ORD : Procedure Date : Nov 08 2023 16:12:40 Edit Date : Nov 11 2023 14:51:17 Diagnosis: ATRIAL FIBRILLATION LEFT AXIS DEVIATION INFERIOR MYOCARDIAL INFARCTION , AGE UNDETERMINED ABNORMAL ECG Confirmed by BRETT CHRISTIAN MD ([id number]), supervising film or videotape editor KATLYN ORELLANA ([id number]) on 11/11/2023 2:50:56 PM Test Reason : Location : 192 : AVCRD Overread By : [facility] Edited By : KATLYN ORELLANA Referred By : , Acquired by : , Clemencia [facility] CNPMable 11-01-2023 CNPN Telephone (CAEPAV) CATY KOHLI ([id number]) 1960 [facility]* Date Time Provider Department 11/01/23 JESSE LONGO CAEPAV During your visit today, we recorded the following information about you: Ciera Parisi RN 11/01/2023 9:47 AM Signed Patient calling. [...] Sleep apnea [G47.30] 10/15/2023 Encounter Status:Closed by SANYA CIERA Nneka on 11/18/23 [facility] ANES POSTPROC EVALon 024 ANES POSTPROC EVAL HNO ID: [id number] Author: JEMMA DUKE APRN.CRNA Service: Anesthesiology Author Type: Nurse Burn Table Operator Type: Anesthesia Postprocedure Evaluation Filed: 10/15/2023 11:03 [...] Anesthesia Observations No Documentation SIGNATURE: Jemma Duke APRN.FRUIT PEELER PATIENT NAME: Caty Kohli DATE: October 15, 2023 TIME: 11:03 AM CSN: [id number] [facility] ANES PRE-OPon 10-15-2023 ANES PRE-OP HNO ID: [id number] Author: BARBY MARTINEZ MD Service: Anesthesiology Author [...] and consent discussed: yes. Patient / Responsible Constitution Party agrees to proceed: yes Patient / Surrogate [...] October 15, 2023 TIME: 9:22 AM CSN: [id number] [facility] ECG COMPLETEon 10-15-2023 ECG COMPLETE Ventricular Rate : 9 0 BPM Atrial Rate : 100 BPM P-R Interval : 145 ms QRS Duration : 96 ms Q-T Interval : 376 ms QTC Calculation(Bazett) : 460 ms Calculated R [place] : -46 degrees Calculated T [place] : 13 degrees Atrial fibrillation Left anterior fascicular block Abnormal R-wave progression, late transition Baseline wander in lead(s) V1 Abnormal ECG Confirmed by LYNDA TELLEZ MD ([id number]) on 10/28/2023 11:43:15 PM NAME : CATY KOHLI PID : [id number] : 1960 Gender : Male Race : ORD : [id number] Procedure Date : Oct 15 2023 09:49:49 Edit Date : Oct 28 2023 23:43:17 Diagnosis: Atrial fibrillation Left anterior fascicular block Abnormal R-wave progression, late transition Baseline wander in lead(s) V1 Abnormal ECG Confirmed by LYNDA TELLEZ MD ([id number]) on 10/28/2023 11:43:15 PM Test Reason : Pre-OP Location : 400 : EK 19 Overread By : LYNDA TELLEZ MD Edited By : LYNDA TELLEZ MD Referred By : , Acquired by : Clemencia SANDRA [facility] EKGon 10-15-2023 Electrocardiogram Ventricular Rate : 6 1 BPM Atrial Rate : 61 BPM P-R Interval : 163 ms QRS Duration : 102 ms Q-T Interval : 434 ms QTC Calculation(Bazett) : 438 ms Calculated P [place] : -1 degrees Calculated R [place] : -45 degrees Calculated T [place] : 7 degrees Sinus rhythm Abnormal R-wave progression, late transition Inferior infarct, old Abnormal ECG Confirmed by LYNDA TELLEZ MD ([id number]) on 10/28/2023 11:46:31 PM NAME : CATY KOHLI PID : [id number] : 1960 Gender : Male Race : ORD : Procedure Date : Oct 15 2023 11:01:54 Edit Date : Oct 28 2023 23:46:35 Diagnosis: Sinus rhythm Abnormal R-wave progression, late transition Inferior infarct, old Abnormal ECG Confirmed by LYNDA TELLEZ MD ([id number]) on 10/28/2023 11:46:31 PM Test Reason : Location : 400 : FVEKG 19 Overread By : LYNDA TELLEZ MD Edited By : LYNDA TELLEZ MD Referred By : , Acquired by : Clemencia CHU [facility] HISTORY PHYSICALon HISTORY PHYSICAL HNO ID: [id number] Author: NAIF ROY APRN.[employer]', DNP Service: Cardiovascular Disease Author Type: Nurse [...] Palpable History of TIA: No History of AL: No Diabetes: No History of Bleeding Issues: [...] which included preparing to see the patient, uged-cm-gqux patient care, completing clinical documentation, obtaining and/or reviewing separately obtained history, performing a medically appropriate examination, counseling and educating the patient/family/caregi artemio, and ordering medications, tests, or procedures. SIGNATURE: Naif Roy APRN.TIFFANIE, JIMY PATIENT NAME: Caty Kohli DATE: October 15, 2023 TIME: 10:10 AM PAGER: [facility] NURSING PROGon 10-15-2023 NURSING PROG HNO ID: [id number] Author: TODD LEDBETTER RN Service: ? Author [...] or lightheaded. [address] [facility] via in stable condition. Normal [facility] OPERATIVE NOon 10-15-2023 OPERATIVE NO HNO ID: [id number] Author: JESSE LONGO MD Service: Cardiovascular Medicine Author Type: Physician Type: Operative Report Filed: 10/15/2023 11:59 Note Text: PROCEDURE NOTE: CARDIOVERSION The risks, benefits, alternatives, and personnel discussed with patient or risk control representative who consents to the procedure. UNIVERSAL [...] for afib Procedure type: DC cardioversion Staff: eJsse Longo MD Brief History: 63M with persistent [...] Longo MD October 15, 2023 11:57 AM [facility] 10-14-2023 [facility] Telephone (VICK) CATY KOHLI ([id number]) 1960 [place]* Date Time Provider Department 10/14/23 LAYLA ROGER During your visit today, we recorded the following information about you: Shelley Ireland 10/14/2023 12:53 PM Signed ----- Message ----- From: Layla Roger PA-C Sent: 10/11/2023 3:12 PM EDT CVN next week --> either location but if at [facility] then request Dr Longo. See me post CVN 2'valente weeks afterwards Layla Roger PA-C Dallasert Pss, Ole 10/14/2023 1:26 PM Signed Called and spoke to patient and scheduled his cardioversion with Dr Longo for tomorrow. 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 Basic metabolic 2000 panelon 10-11-2023 Anion gap [Moles/Vol] 9 mmol/L Normal 9-18 [facility] Comment on above: Order Comment: Speci men Type: BLOOD SPECIMEN Ordering Facility: [facility] Address: [address] [place] [address] Performed By: #### 1 9123-9, 07209-3 #### [facility] CLIA [id number] [address] [place] [address] [place] Calcium [Mass/Vol] 9.2 mg/dL Normal 8.5-10.2 [facility] Comment on above: Order Comment: Speci men Type: BLOOD SPECIMEN Ordering Facility: [facility] Address: [address] [place] [address] Performed By: #### 1 9123-9, 00557-7 #### [facility] CLIA [id number] [address] [place] [address] [place] Chloride [Moles/Vol] 103 mmol/L Normal 97-105 [facility] Comment on above: Order Comment: Speci men Type: BLOOD SPECIMEN Ordering Facility: [facility] Address: [address] [place] [address] Performed By: #### 1 9123-9, 23299-6 #### [facility] CLIA [id number] [address] [place] [address] [place] CO2 [Moles/Vol] 26 mmol/L Normal 22-30 [facility] Comment on above: Order Comment: Speci men Type: BLOOD SPECIMEN Ordering Facility: [facility] Address: [address] [place] [address] [place] [address] Performed By: #### 1 9123-9, 75852-1 #### [facility] CLIA [id number] [address] [place] [address] [place] Creatinine [Mass/Vol] 0.71 mg/dL Low 0.73-1.22 [facility] Comment on above: Order Comment: [place] Type: BLOOD SPECIMEN Ordering Facility: [facility] Address: [address] [place] [address] Performed By: #### 1 9123-9, 82434-1 #### [facility] CLIA [id number] [address] [place] [address] [place] Creatinine and Glomerular filtration rate.predicted panel (S/P/Bld) 102 mL/min/1.73m??? Normal >=60 [facility] Comment on above: Order Comment: [place] Type: BLOOD SPECIMEN Ordering Facility: [facility] Address: [address] [place] [address] Result Comment: June mated Glomerular Filtration Rate [...] actual GFR. Performed By: #### 1 9123-9, 56034-1 #### [facility] CLIA [id number] [address] [place] [address] [place] Glucose [Mass/Vol] 87 mg/dL Normal 74-99 [facility] Comment on above: Order Comment: [place] Type: BLOOD SPECIMEN Ordering Facility: [facility] Address: [address] [place] [address] Result Comment: The [place] [employer] Association (ADA) provides guidance for cutoff [...] Standards of Medical Care in Diabetes 2016, [place] [employer]. Diabetes Care. 2016.39(Suppl 1). Performed By: #### 1 9123-9, 91374-5 #### [facility] CLIA [id number] [address] [place] [address] [place] Potassium [Moles/Vol] 5.1 mmol/L Normal 3.7-5.1 [facility] Comment on above: Order Comment: [place] Type: BLOOD SPECIMEN Ordering Facility: [facility] Address: [address] [place] [address] Performed By: #### 1 91239, 66125-2 #### [facility] [place] [id number] [address] [place] [address] [place] Sodium [Moles/Vol] 138 mmol/L Normal 136-[address] [facility] Comment on above: Order Comment: [place] Type: BLOOD SPECIMEN Ordering Facility: [facility] Address: [address] [place] [address] Performed By: #### 1 91239, 62845-0 #### [facility] CLIA [id number] [address] [place] [address] [place] Urea nitrogen [Mass/Vol] 18 mg/dL Normal 9-24 [facility] Comment on above: Order Comment: [place] Type: BLOOD SPECIMEN Ordering Facility: [facility] Address: [address] [place] [address] Performed By: #### 1 9123-9, 27476-5 #### [facility] CLIA [id number] [address] [place] [address] [place] CBC panel Auto (Bld)on 10-10 Erythrocyte distribution width (RBC) [Ratio] 12.9 % Normal 11.5-15.0 [facility] Comment on above: Order Comment: Speci men Type: BLOOD SPECIMEN Ordering Facility: [facility] Address: [address] [place] [address] Performed By: #### 5 8410-2 #### [facility] CLIA [id number] [address] [place], [place] [id number] [place] [address] OF [facility] Hematocrit (Bld) [Volume fraction] 44.1 % Normal 39.0-51.0 [facility] Comment on above: Order Comment: Speci men Type: BLOOD SPECIMEN Ordering Facility: [facility] Address: [address] [place] [address] Performed By: #### 5 8410-2 #### [facility] [place] [id number] [address] [place] [id number] [place] [address] [place] Hemoglobin (Bld) [Mass/Vol] 14.6 g/dL Normal 13.0-17.0 [facility] Comment on above: Order Comment: Speci men Type: BLOOD SPECIMEN Ordering Facility: [facility] Address: [address] [place] [address] Performed By: #### 5 8410-2 #### [facility] [place] [id number] [address] [place] [address] [place] MCH (RBC) [Entitic mass] 29.6 pg Normal 26.0-34.0 [facility] Comment on above: Order Comment: Speci men Type: BLOOD SPECIMEN Ordering Facility: [facility] Address: [address] [place] [address] Performed By: #### 5 8410-2 #### [facility] CLIA [id number] [address] [place] [address] [place] MCHC (RBC) [Mass/Vol] 33.1 g/dL Normal 30.5-36.0 [facility] Comment on above: Order Comment: Speci men Type: BLOOD SPECIMEN Ordering Facility: [facility] Address: [address] [place] [address] Performed By: #### 5 8410-2 #### [facility] CLIA [id number] [address] [place] [address] [place] MCV (RBC) [Entitic vol] 89.5 fL Normal 80.0-100.0 [facility] Comment on above: Order Comment: Speci men Type: BLOOD SPECIMEN Ordering Facility: [facility] Address: [address] [place] [address] Performed By: #### 5 8410-2 #### [facility] CLIA [id number] [address] [place] [address] [place] Nucleated RBC (Bld) [#/Vol] 10*3/uL Normal <0.01 [facility] Comment on above: Order Comment: Speci men Type: BLOOD SPECIMEN Ordering Facility: [facility] Address: [address] [place] [address] Performed By: #### 5 8410-2 #### [facility] CLIA [id number] [place] [address] [place] Platelet mean volume (Bld) [Entitic vol] 10.6 fL Normal 9.0-12.7 [facility] Comment on above: Order Comment: Speci men Type: BLOOD SPECIMEN Ordering Facility: [facility] Address: [address] [place] [address] Performed By: #### 5 8410-2 #### [facility] CLIA [id number] [address] [place] [address] [place] [facility] [place] Platelets (Bld) [#/Vol] 262 10*3/uL Normal 150-400 [facility] Comment on above: Order Comment: Speci men Type: BLOOD SPECIMEN Ordering Facility: [facility] Address: [address] [place] [address] Performed By: #### 5 8410-2 #### [facility] CLIA [id number] [address] [place] [address] [place] RBC (Bld) [#/Vol] 4.93 10*6/uL Normal 4.20-6.00 [facility] Comment on above: Order Comment: Speci men Type: BLOOD SPECIMEN Ordering Facility: [facility] Address: [address] [place] [address], [place] [address] Performed By: #### 5 8410-2 #### [facility] CLIA [id number] [address] [place] [address] [place] WBC (Bld) [#/Vol] 10.29 10*3/uL Normal 3.70-11.00 [facility] Comment on above: Order Comment: Speci men Type: BLOOD SPECIMEN Ordering Facility: [facility] Address: [address] [place] [address] Performed By: #### 5 8410-2 #### [facility] CLIA [id number] [address] [facility] [place] [address] [facility] CNOVon 10-11-2023 CNOV Office Visit (CAEPAV ) CATY KOHLI ([id number]) 1960 [place]* Date Time Provider Department 10/11/23 2:30 PM LAYLA ROGER During your visit today, we recorded the following information about you: Pulse Blood pressure Weight Height 109/minute 116/70 100.2 kg 1.88 m Layla Roger PA-C 10/11/2023 3:12 PM Formerly [facility], 1928–1983 [facility] [place] Hipolito Mathis Department of Cardiovascular Medicine SECTION OF CARDIAC PACING and ELECTROPHYSIOLOGY OUTPATIENT VISIT DATE October 11, 2023 OUTPATIENT VISIT TYPE ESTABLISHED PRIMARY CARE PHYSICIAN: Tae Martinez ([place]) [address] [place] [address] CHIEF COMPLAINT: Cardiology follow up HISTORY OF [...] Onset Coronary Artery Disease Father 57 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 Normal [facility] [id number] 10-11-2023 ECG01 Ventricular Rate : 109 BPM QRS Duration : 104 ms Q-T Interval : 344 ms QTC Calculation(Bazett) : 463 ms Calculated R [place] : -72 degrees Calculated T [place] : 52 degrees ATRIAL FIBRILLATION WITH RAPID VENTRICULAR RESPONSE LEFT ANTERIOR FASCICULAR BLOCK CANNOT EXCLUDE INFERIOR MYOCARDIAL INFARCTION (MASKED BY FASCICULAR BLOCK?) , AGE UNDETERMINED ABNORMAL ECG Confirmed by LELO VENCES MD ([id number]) on 10/14/2023 12:43:26 PM NAME : CATY KOHLI PID : [id number] : 1960 Gender : Male Race : [...] : , Acquired by : , Normal [facility] Magnesium SerPl-mCncon 10-10 Magnesium [Mass/Vol] 2.2 mg/dL Normal 1.7-2.3 [facility] Comment on above: Order Comment: Speci men Type: BLOOD SPECIMEN Ordering Facility: [facility] Address: [address] [place] [address] Performed By: #### 1 9123-9, 99127-0 #### [facility] CLIA [id number] [address] [address] [address] OF [facility] CNPNon 10-07-2023 CNPN Telephone (CAEPAV) CATY KOHLI ([id number]) 1960 [place] [employer] [employer]* Date Time Provider Department 10/07/23 JESSE [...] needs a TANVI. thank you Johnna Victoria APRN.[employer]' Madelyn Medina 10/10/2023 11:25 AM Signed Scheduled with Layla [...] Status:Closed by LAURA LEON on 10/07/[address] [facility] CNOVon 08-08-2023 CNOV Office Visit (CAEPLN ) CATY KOHLI ([id number]) 1960 [place]* Date Time Provider Department 08/08/23 10:00 AM JESSE LONGO During your visit today, we recorded the following information about you: Pulse Blood pressure Weight 57/minute 122/70 99.5 kg Jesse Longo MD 08/08/2023 10:10 AM Signed [facility] [place] SECTION OF REGIONAL CARDIOLOGY OUTPATIENT VISIT DATE August 08, 2023 OUTPATIENT VISIT TYPE ESTABLISHED PRIMARY CARE PHYSICIAN: Tae Martinez ([facility]) [address] [place] [address] CHIEF COMPLAINT: afib HISTORY OF PRESENT ILLNESS: [...] Onset Coronary Artery Disease Father 57 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 #:[id number]--GSDGw kg Prescriptions as of 08/08/2023 - ezetimibe (ZETIA) 10 mg tablet Take 1 tablet by mouth once daily. - apixaban (ELIQUIS) 5 mg tab(s) Take 1 tablet by mouth two times a day. - nitroglycerin sublingual (NITROQUICK) 0.4 mg SL tablet Dis (more content not included)... Normal [facility] ECG COMPLETEon 08-08-2023 ECG COMPLETE Ventricular Rate : 5 7 BPM Atrial Rate : 57 BPM P-R Interval : 176 ms QRS Duration : 108 ms Q-T Interval : 422 ms QTC Calculation(Bazett) : 410 ms Calculated P [place] : 62 degrees Calculated R [place] : -34 degrees Calculated T [place] : 26 degrees SINUS BRADYCARDIA LEFT AXIS DEVIATION ABNORMAL ECG Confirmed by MARJ ARIAS MD ([id number]) on 08/08/2023 1:08:59 PM NAME : CATY KOHLI PID : [id number] : 1960 Gender : Male Race : ORD : [id number] Procedure Date : Aug 08 2023 09:57:57 [...] Referred By : Donta Acquired by : Clemencia conteh [facility] Lipid 1996 panelon 3 Cholesterol [Mass/Vol] 126 mg/dL Normal <200 Cl [facility] Comment on above: Order Comment: Speci men Type: BLOOD SPECIMENOrdering Facility: [facility] Address: [address] [place] [address] Result Comment: <200 mg/dL, Desirable 200-239 mg/dL, Borderline high >239 mg/dL, High Performed By: #### 2 4331-1 ####[facility] [id number] [address] LABCLIA [id number] [place] [address] Cholesterol in HDL [Mass/Vol] 43 mg/dL Normal >39 [facility] Comment on above: Order Comment: Speci men Type: BLOOD SPECIMENOrdering Facility: [facility] Address: [address] [place] [address] Result Comment: 40-5 9 mg/dL, Acceptable >59 mg/dL, High: Negative risk factor for coronary heart disease <40 mg/dL, Low: Positive risk factor for coronary heart disease Performed By: #### 2 4331-1 ####[facility] [id number] [address] LAB[facility]IA [id number] [place] [address] Cholesterol in LDL [Mass/Vol] 72 mg/dL Normal <100 [facility] Comment on above: Order Comment: Speci men Type: BLOOD SPECIMENOrdering Facility: [facility] Address: [address] [place] [address] Result Comment: <100 mg/dL, Optimal 100-129 mg/dL, Near optimal/above optimal 130-159 mg/dL, Borderline high 160-189 mg/dL, High >189 mg/dL, Very high Secondary prevention optimal LDL Cholesterol levels are recommended to be < 70 mg/dL Performed By: #### 2 4331-1 ####[facility] [id number] [address] LABCLIA [id number] [place] [address] Cholesterol in LDL/Cholesterol in HDL [Mass ratio] 1.67 {ratio} Normal <2.54 [facility] Comment on above: Order Comment: Speci men Type: BLOOD SPECIMENOrdering Facility: [facility] Address: [address] [place] [address] Result Comment: Refhaley mckeece: 1. National Cholesterol Education Program ATP III Guideline At-A-Glance Quick Desk Reference: National Heart, Lung, and Blood [place]. National Institutes of Health. 2001: NIH Publication No. 01-3305. 2. An International Atherosclerosis Society position paper: global recommendations for the management of dyslipidemia: executive summary, Atherosclerosis. 2014: 232(2):410-413. Performed By: #### 2 4331-1 ####[facility] [id number] [address] LABCLIA [id number] [place] [address] Cholesterol in VLDL [Mass/Vol] 11 mg/dL Normal <30 [facility] Comment on above: Order Comment: Speci men Type: BLOOD SPECIMENOrdering Facility: [facility] Address: [address] [place] [address] Performed By: #### 2 4331-1 ####[facility] [id number] [address] LABCLIA [id number] [place] [address] Cholesterol non HDL [Mass/Vol] 83 mg/dL Normal <130 [facility] Comment on above: Order Comment: Speci men Type: BLOOD SPECIMENOrdering Facility: [facility] Address: [address] [place] [address] Result Comment: <130 mg/dL, Optimal 130-159 mg/dL, Near optimal/above optimal 160-189 mg/dL, Borderline high 190-219 mg/dL, High >219 mg/dL, Very high Secondary prevention optimal non HDL Cholesterol levels are recommended to be <100 mg/dL Performed By: #### 2 4331-1 ####[facility] [id number] [address] LABCLIA [id number] [place] [address] Cholesterol.total/Chol esterol in HDL [Mass ratio] 2.93 {ratio} Normal <5.10 [facility] Comment on above: Order Comment: Speci men Type: BLOOD SPECIMENOrdering Facility: [facility] Address: [address] [place] [address] Performed By: #### 2 4331-1 ####[facility] [id number] [address] LABCLIA [id number] [place] [id number] FASTING TIME [address] [facility] Comment on above: Order Comment: Speci men Type: BLOOD SPECIMENOrdering Facility: [facility] Address: [address] [place] [address] Performed By: #### 2 4331-1 ####[facility] [id number] [address] LABCLIA [id number] [place] [id number] Triglyceride [Mass/Vol] 55 mg/dL Normal <150 [facility] Comment on above: Order Comment: Speci men Type: BLOOD SPECIMENOrdering Facility: [facility] Address: [address] [place] [address] Result Comment: <150 mg/dL, Normal 150-199 mg/dL, Borderline high 200-499 mg/dL, High >499 mg/dL, Very high Performed By: #### 2 4331-1 ####[facility] [id number] [address] LABCLIA [id number] [place] [address] Caro 05-17-2023 KARLAOV Office Visit (VICK ) CATY KOHLI ([id number]) 1960 [place] [employer]* Date Time Provider Department 05/17/23 9:00 AM CARLOS GARCIA During your visit today, we recorded the following information about you: Pulse Blood pressure Weight 57/minute 124/78 97.5 kg Carlos Garcia MD 05/17/2023 9:17 AM Addendum [facility] [place] Hipolito Mathis Department of Cardiovascular Medicine SECTION [...] RVSF/size, normal LA/RA size, 1+ TR, 1+ LA, mid ascending 3.9cm 01/19/2021 TTE: LVEF 55-60%, [...] INFORMATION: Carlos Garcia M.D. Cardiovascular Medicine Staff [facility] Mail Code [id number] [facility] [place] [address] Allergies As of Date: 05/17/2023 Noted Allergy Reaction PENICILLINS 03/20/2019 2 - Rash SULFA (SULFONAMIDE ANTIBIOTICS) 03/20/2019 7 - Swelling Date Reviewed: 05/17/2023 Reviewed by: Sravani Rouse RN - Fully Assessed Reason for Visit: Established Patient [175] Primary Visit Diagnosis:Coronary artery disease involving otoe-[place] heart without angina pectoris, unspecified vessel or lesion type [I25.10] Order(s):apixaban (ELIQUIS) 5 mg t (more content not included)... Normal [facility] CNOVon 01-17-2023 CNOV Office Visit (CAEPLN ) CAYT KOHLI ([id number]) 1960 Francesco Ledbetter Co* Date Time Provider Department 01/17/23 8:30 AM JESSE LONGO CAEPLN During your visit today, we recorded the following information about you: Pulse Blood pressure Weight 50/minute 126/82 97.1 kg Jesse Longo MD 01/17/2023 8:50 AM Signed [facility] [place] SECTION OF REGIONAL CARDIOLOGY OUTPATIENT VISIT DATE January 17, 2023 OUTPATIENT VISIT TYPE ESTABLISHED PRIMARY CARE PHYSICIAN: Tae Martinez (Meek) [address] [place] [address] CHIEF COMPLAINT: Post PVI HISTORY OF PRESENT [...] Onset Coronary Artery Disease Father 57 smoker; shortage worker Emphysema Paternal Grandfather ALLERGIES Allergen Reactions Penicillins [...] (HCC) [I48.19] Order(s):ECG COMPLETE [ECG01] Order #: [id number] FUTURE ECG COMPLETE [ECG01] Order #: [id number]. #:[id number] kg Prescriptions as of 01/17/2023 - rosuvastatin [...] BI-FLEX ORAL) (more content not included)... Normal [facility] ECG COMPLETEon 01-17-2023 ECG COMPLETE Ventricular Rate : 5 1 BPM Atrial Rate : 51 BPM P-R Interval : 176 ms QRS Duration : 110 ms Q-T Interval : 488 ms QTC Calculation(Bazett) : 449 ms Calculated P [place] : 35 degrees Calculated R [place] : -35 degrees Calculated T [place] : 23 degrees SINUS BRADYCARDIA LEFT AXIS DEVIATION ABNORMAL ECG Confirmed by AJ BROOKS MD ([id number]) on 01/27/2023 1:04:28 PM NAME : CATY KOHLI PID : [id number] : 1960 Gender : Male Race : ORD : [id number] Procedure Date : Jan 17 2023 08:35:40 Edit Date : Jan 27 2023 13:07:14 Diagnosis: SINUS BRADYCARDIA LEFT AXIS DEVIATION ABNORMAL ECG Confirmed by AJ BROOKS MD ([id number]) on 01/27/2023 1:04:28 PM Test Reason : [facility] : [facility] Overread By : AJ BROOKS MD Edited By : AJ BROOKS MD Referred By : JESSE LONGO Acquired by : wero, Clemencia [facility] ECG COMPLETEon 11-14-2022 Atrial Rate 65 BPM [facility] Calculated P [place] 5 degrees [facility] Calculated R [place] -54 degrees [facility] Calculated T [place] 4 degrees [facility] P-R Interval 166 ms [facility] QRS Duration 100 ms [facility] QT Interval 432 ms [facility] QTC Calculation (Bazett) 449 ms [facility] Ventricular Rate 65 BPM [facility] METHYLMALONIC ACID (MMA)on 0 03-22-2022 Methylmalonic Acid, Serum 138 nmol/L Normal 0-378 [facility] Comment on above: Performed By: #### M MA2 #### [facility] [address] [place] [address] Dr. Sunil Claudio CBC AUTO DIFFon 03-16-2022 BASO # 0.1 103/ul Normal 0.0-0.1 [facility] Comment on above: Performed By: #### C BC #### [facility] [address] [place] [address] Dr. Sunil Claudio Basophils/100 WBC (Bld) 0.7 % Normal 0.2-2.0 [facility] Comment on above: Performed By: #### C BC #### [facility] [address] [place] [address] Dr. Sunil Claudio EO # 0.4 103/ul Normal 0.0-0.7 [facility] Comment on above: Performed By: #### C BC #### [facility] [address] [place] [address] Dr. Sunil Claudio Eosinophils/100 WBC (Bld) 4.3 % Normal 0.9-7.0 [facility] Comment on above: Performed By: #### C BC #### [facility] [address] [place] [address] Dr. Sunil Claudio Erythrocyte distribution width (RBC) [Ratio] 13.2 % Normal 11.0-15.0 [facility] Comment on above: Performed By: #### C BC #### [facility] [address] [place] [address] Dr. Sunil Claudio Hematocrit (Bld) [Volume fraction] 40.8 % Critically low 42.0-54.0 [facility] Comment on above: Performed By: #### C BC #### [facility] [address] [place] [address] Dr. Sunil Claudio Hemoglobin (Bld) [Mass/Vol] 13.4 g/dL Critically low 14.0-18.0 [facility] Comment on above: Performed By: #### C BC #### [facility] [address] [place] [address] Dr. Sunil Claudio IG # 0.03 10e3/ul Normal 0.00-0.03 [facility] Comment on above: Performed By: #### C BC #### [facility] [address] [place] [address] Dr. Sunil Claudio IG % 0.3 % Normal 0.0-0.5 [facility] Comment on above: Performed By: #### C BC #### [facility] [address] [place] [address] Dr. Sunil Claudio LYMPH # 1.7 103/ul Normal 1.2-3.8 [facility] Comment on above: Performed By: #### C BC #### [facility] [address] [place] [address] Dr. Sunil Claudio Lymphocytes/100 WBC (Bld) 17.8 % Critically low 20.5-60.0 [facility] Comment on above: Performed By: #### C BC #### [facility] [address] [place] [address] Dr. Sunil Claudio MANUAL DIFF REQ NO Normal [facility] Comment on above: Performed By: #### C BC #### [facility] [address] [place] [address] Dr. Sunil Claudio MCH (RBC) [Entitic mass] 29.6 pg Normal 25.9-34.0 [facility] Comment on above: Performed By: #### C BC #### [facility] [address] [place] [address] Dr. Sunil Claudio MCHC (RBC) [Mass/Vol] 32.8 g/dL Normal 29.9-35.2 [facility] Comment on above: Performed By: #### C BC #### [facility] [address] [place] [address] Dr. Sunil Claudio MCV (RBC) [Entitic vol] 90.3 fL Normal 80.0-94.0 [facility] Comment on above: Performed By: #### C BC #### [facility] [address] [place] [address] Dr. Sunil Claudio MONO # 0.8 103/ul Normal 0.3-0.8 [facility] Comment on above: Performed By: #### C BC #### [facility] [address] [place] [address] Dr. Sunil Claudio Monocytes/100 WBC (Bld) 8.6 % Normal 1.7-12.0 [facility] Comment on above: Performed By: #### C BC #### [facility] [address] [place] [address] Dr. Sunil Claudio NEUT # 6.7 103/ul Critically high 1.4-6.5 [facility] Comment on above: Performed By: #### C BC #### [facility] [address] [place] [address] Dr. Sunil Claudio Neutrophils/100 WBC (Bld) 68.3 % Normal 43.0-75.0 [facility] Comment on above: Performed By: #### C BC #### [facility] [address] [place] [address] Dr. Sunil Claudio Platelet mean volume (Bld) [Entitic vol] 10.1 fL Normal 9.5-13.5 [facility] Comment on above: Performed By: #### C BC #### [facility] [address] [place] [address] Dr. Sunil Claudio PLT 240 103/ul Normal 150-450 [facility] Comment on above: Performed By: #### C BC #### [facility] [address] [place] [address] Dr. Sunil Claudio RBC 4.52 106/ul Critically low 4.70-6.10 [facility] Comment on above: Performed By: #### C BC #### [facility] [address] [place] [address] Dr. Sunil Claudio WBC 9.8 103/ul Normal 4.0-11.0 [facility] Comment on above: Performed By: #### C BC #### [facility] [address] [place] [address] Dr. Sunil Claudio FERRITINon 03-16-2022 Ferritin [Mass/Vol] 103.0 ng/mL Normal 26.0-388.0 [facility] Comment on above: Performed By: #### F ETIBC, B12FOL, FERR #### [facility] [address] [place] [address] Dr. Sunil Claudio IRON AND TIBCon 03-16-2022 % SATURATION 27.3 % Normal [facility] Comment on above: Performed By: #### F ETIBC, B12FOL, FERR #### [facility] [address] [place] [address] Dr. Sunil Claudio Iron [Mass/Vol] 89.0 ug/dL Normal 65.0-175.0 [facility] Comment on above: Performed By: #### F ETIBC, B12FOL, FERR #### [facility] [address] [place] [address] Dr. Sunil Claudio TIBC DIRECT 326.0 ug/dL Normal 250.0-450.0 [facility] Comment on above: Performed By: #### F ETIBC, B12FOL, FERR #### [facility] [address] [place] [address] Dr. Sunil Claudio VIT B12 AND FOLATEon 022 Cobalamin (Vitamin B12) [Mass/Vol] 592.0 pg/mL Normal 193.0-986.0 [facility] Comment on above: Performed By: #### F ETIBC, B12FOL, FERR #### [facility] [address] [place] [address] Dr. Sunil Claudio FOLATE 20.40 ng/mL Normal 8.60-58.90 [facility] Comment on above: Performed By: #### F ETIBC, B12FOL, FERR #### [facility] [address] [place] [address] Dr. Sunil Claudio US KNEE-INJECTION LT (POC) O RI USE ONLYon 03-06-2022 [facility] US KNEE-INJECTION RT (POC) O RI USE ONLYon 03-06-2022 [facility] ECHOon 12-13-2021 [facility] CBC AUTO DIFFon 11-29-2021 BASO # 0.1 103/ul Normal 0.0-0.1 [facility] Comment on above: Performed By: #### C BC #### [facility] [address] [place] [address] Dr. Sunil Claudio Basophils/100 WBC (Bld) 0.7 % Normal 0.2-2.0 [facility] Comment on above: Performed By: #### C BC #### [facility] [address] [place] [address] Dr. Sunil Claudio EO # 0.4 103/ul Normal 0.0-0.7 [facility] Comment on above: Performed By: #### C BC #### [facility] [address] [place] [address] Dr. Sunil Claudio Eosinophils/100 WBC (Bld) 4.4 % Normal 0.9-7.0 [facility] Comment on above: Performed By: #### C BC #### [facility] [address] [place] [address] Dr. Sunil Claudio Erythrocyte distribution width (RBC) [Ratio] 12.9 % Normal 11.0-15.0 [facility] Comment on above: Performed By: #### C BC #### [facility] [address] [place] [address] Dr. Sunil Claudio Hematocrit (Bld) [Volume fraction] 41.6 % Critically low 42.0-54.0 [facility] Comment on above: Performed By: #### C BC #### [facility] [address] [place] [address] Dr. Sunil Claudio Hemoglobin (Bld) [Mass/Vol] 13.7 g/dL Critically low 14.0-18.0 [facility] Comment on above: Performed By: #### C BC #### [facility] [address] [place] [address] Dr. Sunil Claudio IG # 0.03 10e3/ul Normal 0.00-0.03 [facility] Comment on above: Performed By: #### C BC #### [facility] [address] [place] [address] Dr. Sunil Claudio IG % 0.4 % Normal 0.0-0.5 [facility] Comment on above: Performed By: #### C BC #### [facility] [address] [place] [address] Dr. Sunil Claudio LYMPH # 2.2 103/ul Normal 1.2-3.8 [facility] Comment on above: Performed By: #### C BC #### [facility] [address] [place] [address] Dr. Sunil Claudio Lymphocytes/100 WBC (Bld) 25.7 % Normal 20.5-60.0 [facility] Comment on above: Performed By: #### C BC #### [facility] [address] [place] [address] Dr. Sunil Claudio MANUAL DIFF REQ NO Normal [facility] Comment on above: Performed By: #### C BC #### [facility] [address] [place] [address] Dr. Sunil Claudio MCH (RBC) [Entitic mass] 29.7 pg Normal 25.9-34.0 [facility] Comment on above: Performed By: #### C BC #### [facility] [address] [place] [address] Dr. Sunil Claudio MCHC (RBC) [Mass/Vol] 32.9 g/dL Normal 29.9-35.2 [facility] Comment on above: Performed By: #### C BC #### [facility] [address] [place] [address] Dr. Sunil Claudio MCV (RBC) [Entitic vol] 90.2 fL Normal 80.0-94.0 [facility] Comment on above: Performed By: #### C BC #### [facility] [address] [place] [address] Dr. Sunil Claudio MONO # 0.8 103/ul Normal 0.3-0.8 [facility] Comment on above: Performed By: #### C BC #### [facility] [address] [place] [address] Dr. Sunil Claudio Monocytes/100 WBC (Bld) 9.1 % Normal 1.7-12.0 [facility] Comment on above: Performed By: #### C BC #### [facility] [address] [place] [address] Dr. Sunil Claudio NEUT # 5.0 103/ul Normal 1.4-6.5 [facility] Comment on above: Performed By: #### C BC #### [facility] [address] [address] [address] Sunil Claudio Neutrophils/100 WBC (Bld) 59.7 % Normal 43.0-75.0 [facility] Comment on above: Performed By: #### C BC #### [facility] [address] [address] [address] Sunil Claudio Platelet mean volume (Bld) [Entitic vol] 9.9 fL Normal 9.5-13.5 [facility] Comment on above: Performed By: #### C BC #### [facility] [address] [address] [address] Sunil Claudio PLT 258 103/ul Normal 150-450 [facility] Comment on above: Performed By: #### C BC #### [facility] [address] [address] [address] Sunil Claudio RBC 4.61 106/ul Critically low 4.70-6.10 [facility] Comment on above: Performed By: #### C BC #### [facility] [address] [address] [address] Sunil Claudio WBC 8.4 103/ul Normal 4.0-11.0 [facility] Comment on above: Performed By: #### C BC #### [facility] [address] [address] [address] Sunil Claudio CREATININE, BLOOD (POC)on Creatinine [Mass/Vol] 0.70 mg/dL 0.7 - 1.4 mg/dL [facility] GFR/1.73 sq M.predicted among non-blacks MDRD (S/P/Bld) [Vol rate/Area] mL/min/{1.73_m2} [facility] CTA CORONARY W IVCONon 11-28 [facility] CBC Without Differentialon 0 12-24-2020 Erythrocyte distribution width (RBC) [Ratio] 13.1 % Normal 12.0-14.8 [facility] Comment on above: Performed By: #### O UTRDOROTHY CMP, OUTREACH VITD, PSA OUTREACH, OUTREACH LIPID, CBCNOOUTREACH #### [address] Hematocrit (Bld) [Volume fraction] 42.3 % Normal 38.8-50.0 [facility] Comment on above: Performed By: #### O UTREACH CMP, OUTREACH VITD, PSA OUTREACH, OUTREACH LIPID, CBCNOOUTREACH #### [address] Hemoglobin (Bld) [Mass/Vol] 14.6 g/dL Normal 13.0-17.0 [facility] Comment on above: Performed By: #### O UTREACH CMP, OUTREACH VITD, PSA OUTREACH, OUTREACH LIPID, CBCNOOUTREACH #### [address] MCH (RBC) [Entitic mass] 31.2 pg Normal 27.5-35.2 [facility] Comment on above: Performed By: #### O UTREACH CMP, OUTREACH VITD, PSA OUTREACH, OUTREACH LIPID, CBCNOOUTREACH #### [address] MCV (RBC) [Entitic vol] 90.4 fL Normal 83.5-101 [facility] Comment on above: Performed By: #### O UTREACH CMP, OUTREACH VITD, PSA OUTREACH, OUTREACH LIPID, CBCNOOUTREACH #### [address] Mean Corpuscular HGB Conc 34.6 g/dL Normal 32.5-35.6 [facility] Comment on above: Performed By: #### O UTREACH CMP, OUTREACH VITD, PSA OUTREACH, OUTREACH LIPID, CBCNOOUTREACH #### [address] Platelet mean volume (Bld) [Entitic vol] 9.9 fL Normal 6.6-10.1 [facility] Comment on above: Result Comment: PERF ORMED BY: [place] [address] PATHOLOGIST CALL OUT OPERATOR BEAU STAHL M.D. Performed By: #### O UTREACH CMP, OUTREACH VITD, PSA OUTREACH, OUTREACH LIPID, CBCNOOUTREACH #### [facility] [address] [place] [address] Platelets (Bld) [#/Vol] 239 10*3/uL Normal 150-450 [facility] Comment on above: Performed By: #### O UTREACH CMP, OUTREACH VITD, PSA OUTREACH, OUTREACH LIPID, CBCNOOUTREACH #### [facility] [address] [place] [address] RBC (Bld) [#/Vol] 4.67 10*6/uL Normal 3.90-5.60 [facility] Comment on above: Performed By: #### O UTREACH CMP, OUTREACH VITD, PSA OUTREACH, OUTREACH LIPID, CBCNOOUTREACH #### [address] WBC (Bld) [#/Vol] 8.6 10*3/uL Normal 4.1-10.5 [facility] Comment on above: Performed By: #### O UTREACH CMP, OUTREACH VITD, PSA OUTREACH, OUTREACH LIPID, CBCNOOUTREACH #### [facility] [address] [place] [address] CMP Outreachon 12-24-2020 Albumin [Mass/Vol] 3.6 g/dL Normal 3.2-5.5 [facility] Comment on above: Performed By: #### O UTREACH CMP, OUTREACH VITD, PSA OUTREACH, OUTREACH LIPID, CBCNOOUTREACH #### [facility] [address] [place] [address] ALP [Catalytic activity/Vol] 65 U/L Normal 32-92 [facility] Comment on above: Performed By: #### O UTREACH CMP, OUTREACH VITD, PSA OUTREACH, OUTREACH LIPID, CBCNOOUTREACH #### [facility] [address] [place] [address] ALT [Catalytic activity/Vol] 21 U/L Normal 10-60 [facility] Comment on above: Performed By: #### O UTREACH CMP, OUTREACH VITD, PSA OUTREACH, OUTREACH LIPID, CBCNOOUTREACH #### [facility] [address] [id number] [place] AST [Catalytic activity/Vol] 23 U/L Normal 10-42 [facility] Comment on above: Performed By: #### O UTREACH CMP, OUTREACH VITD, PSA OUTREACH, OUTREACH LIPID, CBCNOOUTREACH #### [facility] [address] [id number] [place] Bilirubin [Mass/Vol] 0.7 mg/dL Normal 0.3-1.2 [facility] Comment on above: Performed By: #### O UTREACH CMP, OUTREACH VITD, PSA OUTREACH, OUTREACH LIPID, CBCNOOUTREACH #### [facility] [address] Calcium [Mass/Vol] 8.7 mg/dL Normal 8.2-10.2 [facility] Comment on above: Performed By: #### O UTREACH CMP, OUTREACH VITD, PSA OUTREACH, OUTREACH LIPID, CBCNOOUTREACH #### [facility] [address] [place] [address] [place] Chloride [Moles/Vol] 106 mmol/L Normal 95-114 [facility] Comment on above: Performed By: #### O UTREACH CMP, OUTREACH VITD, PSA OUTREACH, OUTREACH LIPID, CBCNOOUTREACH #### [facility] [address] [id number] [place] CO2 [Moles/Vol] 21.4 mmol/L Low 22.0-30.0 [facility] Comment on above: Performed By: #### O UTREACH CMP, OUTREACH VITD, PSA OUTREACH, OUTREACH LIPID, CBCNOOUTREACH #### [facility] [address] [phone] [place] Creatinine [Mass/Vol] 0.64 mg/dL Normal 0.64-1.27 [facility] Comment on above: Performed By: #### O UTREACH CMP, OUTREACH VITD, PSA OUTREACH, OUTREACH LIPID, CBCNOOUTREACH #### [facility] [address] [place] [address] [place] Estimated GFR ( Mansi > 60 Normal [facility] Comment on above: Result Comment: GFR estimated reference range: According to KDOQI guidelines, <60 ml/min/1.73m2 is sufficient to diagnose a patient with chronic kidney disease. Performed By: #### O UTREACH CMP, OUTREACH VITD, PSA OUTREACH, OUTREACH LIPID, CBCNOOUTREACH #### [facility] [address] [phone] [place] Estimated GFR (Non- Am > 60 Normal [facility] Comment on above: Performed By: #### O UTREACH CMP, OUTREACH VITD, PSA OUTREACH, OUTREACH LIPID, CBCNOOUTREACH #### [facility] [address] [id number] [place] Glucose [Mass/Vol] 90 mg/dL Normal 70-100 [facility] Comment on above: Result Comment: [place] Glucose Reference Range is dependent on time and content of last meal. Glucose of more than 200 mg/dL in a nonstressed, ambulatory subject supports the diagnosis of Diabetes Mellitus. ADA recommended reference range Performed By: #### O UTREACH CMP, OUTREACH VITD, PSA OUTREACH, OUTREACH LIPID, CBCNOOUTREACH #### [facility] [address] [phone] [place] Potassium [Moles/Vol] 4.4 mmol/L Normal 3.5-5.1 [facility] Comment on above: Performed By: #### O UTREACH CMP, OUTREACH VITD, PSA OUTREACH, OUTREACH LIPID, CBCNOOUTREACH #### [facility] [address] [phone] [place] Protein [Mass/Vol] 6.8 g/dL Normal 6.1-7.9 [facility] Comment on above: Performed By: #### O UTREACH CMP, OUTREACH VITD, PSA OUTREACH, OUTREACH LIPID, CBCNOOUTREACH #### [facility] [address] [phone] [place] Sodium [Moles/Vol] 137 mmol/L Normal 136-146 [facility] Comment on above: Performed By: #### O UTREACH CMP, OUTREACH VITD, PSA OUTREACH, OUTREACH LIPID, CBCNOOUTREACH #### [facility] [address] [phone] [place] Urea nitrogen [Mass/Vol] 14 mg/dL Normal 9-23 [facility] Comment on above: Performed By: #### O UTREACH CMP, OUTREACH VITD, PSA OUTREACH, OUTREACH LIPID, CBCNOOUTREACH #### [facility] [address] [place] [address] [place] Lipid Profile Outreachon Cholesterol [Mass/Vol] 134 mg/dL Low 140-200 [facility] Comment on above: Result Comment: Chol less than 200 mg/dl low risk Chol 201-239 mg/dl borderline risk Chol 240 mg/dl and greater high risk Performed By: #### O UTREACH CMP, OUTREACH VITD, PSA OUTREACH, OUTREACH LIPID, CBCNOOUTREACH #### [facility] [address] [phone] [place] Cholesterol in HDL [Mass/Vol] 40 mg/dL Normal 29-71 [facility] Comment on above: Result Comment: HDL CHOL ATP-III CLASSIFICATION Cardiovascular Risk HDL > or equal to 60 mg/dL LOW HDL < 40 mg/dL HIGH Performed By: #### O UTREACH CMP, OUTREACH VITD, PSA OUTREACH, OUTREACH LIPID, CBCNOOUTREACH #### [facility] [address] Cholesterol.total/Chol esterol in HDL [Mass ratio] 3.4 {ratio} Normal <5.0 [facility] Comment on above: Performed By: #### O UTREACH CMP, OUTREACH VITD, PSA OUTREACH, OUTREACH LIPID, CBCNOOUTREACH #### [facility] [address] [place] [id number] [place] LDL Cholesterol,Calculated 86 mg/dL Normal 0-100 [facility] Comment on above: Result Comment: LDL ATP III CLASSIFICATION LDL less than 100 mg/dL Optimal LDL 100-129 mg/dL Near or above optimal LDL 130-159 mg/dL Borderline high LDL 160-189 mg/dL High LDL greater than 189 mg/dL Very high Performed By: #### O UTREACH CMP, OUTREACH VITD, PSA OUTREACH, OUTREACH LIPID, CBCNOOUTREACH #### [facility] [address] [place] [address] Triglyceride w/Reflex 42 mg/dL Normal 35-149 [facility] Comment on above: Result Comment: TRIG ATP III CLASSIFICATION TRIG less than 150 mg/dL Normal TRIG 150-199 mg/dL Borderline high TRIG 200-500 mg/dL High TRIG greater than 500 mg/dL Very high Standard traceable to the Center for Disease Conrtrol and Prevention (CDC) test method. Performed By: #### O UTREACH CMP, OUTREACH VITD, PSA OUTREACH, OUTREACH LIPID, CBCNOOUTREACH #### [facility] [address] [place] [address] VLDL CHOLESTEROL 8 mg/dL Normal [facility] Comment on above: Performed By: #### O UTREACH CMP, OUTREACH VITD, PSA OUTREACH, OUTREACH LIPID, CBCNOOUTREACH #### [address] PSA Total Community Outreach on 12-24-2020 PSA Total Community Outreach 0.580 ng/mL Normal 0.000-4.000 [facility] Comment on above: Result Comment: PERF ORMED BY: [place] [address] PATHOLOGIST CALL OUT OPERATOR BEAU STAHL M.D. Performed By: #### O UTREACH CMP, OUTREACH VITD, PSA OUTREACH, OUTREACH LIPID, CBCNOOUTREACH #### [facility] [address] [place], [place] [id number] [facility] Vitamin D 25 Hydroxy Totalon 12-24-2020 Vitamin D 25 Hydroxy Total 37.8 ng/mL Normal 30-100 [facility] Comment on above: Result Comment: LEVI MIN D STATUS 25(OH)VITAMIN D RANGE (ng/mL) Deficient <20 Insufficient 20 to <30 Sufficient 30 to 100 Reference: Gerardo MF,Dontrell NC, Itzel OBRIEN, et al. Evaluation,treatment, and prevention of vitamin D deficiency; an Endocrine Society clinical practice guideline. JCEM. 2010; 96(7):1911-30. PERFORMED BY: [place] [id number] PATHOLOGIST CALL OUT OPERATOR BEAU STAHL M.D. Performed By: #### O [facility] CMP, OUTREACH VITD, PSA OUTREACH, OUTREACH LIPID, CBCNOOUTREACH #### [facility] [address] Coding Summary.on 01-21-2020 Coding Summary. CODING DATE: 01/21/2020 FINAL [facility] STATUS: Home (Routine DC) PAYOR: [facility] [place] ADMIT DX: REASON FOR VISIT DX: Z11.59 [...] [place]ado Date Saved: 01/21/2020 03:18 am Normal [facility] Physician Orderon 01-08-2020 Physician Order [id number]. 00CD:127 Normal [facility] Large Joint Arthro/Inj: bila teral knee joints [facility] Vital Signs Date Time Vital Sign Value Performing Clinician Facility 01-09-2024 11:00-0400 Body mass index (BMI) [Ratio] 27.85 kg/m2 Jesse Longo MD Work Phone: [facility] 01-09-2024 11:00-0400 Body weight 98.4 kg Jesse Longo MD Work Phone: [facility] 01-09-2024 11:00-0400 Diastolic blood pressure 78 mm[Hg] Jesse Longo MD Work Phone: [facility] 01-09-2024 11:00-0400 Heart rate 52 /min Jesse Longo MD Work Phone: [facility] 01-09-2024 11:00-0400 Systolic blood pressure 134 mm[Hg] Jesse Longo MD Work Phone: [facility] 11-08-2023 16:10-0400 Body height 188 cm Layla Roger PA-C Work Phone: [facility] 11-08-2023 16:10-0400 Body mass index (BMI) [Ratio] 28.1 kg/m2 Layla Roger PA-C Work Phone: [facility] 11-08-2023 16:10-0400 Body weight 99.3 kg Layla Roger PA-C Work Phone: [facility] 11-08-2023 16:10-0400 Diastolic blood pressure 80 mm[Hg] Layla Roger PA-C Work Phone: [facility] 11-08-2023 16:10-0400 Heart rate 84 /min Layla Roger PA-C Work Phone: [facility] 11-08-2023 16:10-0400 Systolic blood pressure 132 mm[Hg] Layla Roger PA-C Work Phone: [facility] 06-05-2023 09:30-0500 Body height 187.96 cm Tae Ball Other [employer] Other 06-05-2023 09:30-0500 Body mass index (BMI) [Ratio] 27.45 kg/m2 Tae Ball Other [employer] Other 06-05-2023 09:30-0500 Body weight 96.98 kg Tae Ball Other [employer] Other 06-05-2023 09:30-0500 Diastolic blood pressure 82 mm[Hg] Tae Ball Other [employer] Other 06-05-2023 09:30-0500 Systolic blood pressure 151 mm[Hg] Tae Ball Other [employer] Other 05-17-2023 09:01-0400 Body weight 97.52 kg Carlos Garcia MD Work Phone: [facility] 05-17-2023 09:01-0400 Diastolic blood pressure 78 mm[Hg] Carlos Garcia MD Work Phone: [facility] 05-17-2023 09:01-0400 Heart rate 57 /min Carlos Garcia MD Work Phone: [facility] 05-17-2023 09:01-0400 SaO2% (BldA) [Mass fraction] 95 % Carlos Garcia MD Work Phone: [facility] 05-17-2023 09:01-0400 Systolic blood pressure 124 mm[Hg] Carlos Garcia MD Work Phone: [facility] 01-17-2023 08:36-0400 Body weight 97.07 kg Jesse Longo MD Work Phone: [facility] 01-17-2023 08:36-0400 Diastolic blood pressure 82 mm[Hg] Jesse Longo MD Work Phone: [facility] 01-17-2023 08:36-0400 Heart rate 50 /min Jesse Longo MD Work Phone: [facility] 01-17-2023 08:36-0400 Systolic blood pressure 126 mm[Hg] Jesse Longo MD Work Phone: [facility] 11-14-2022 11:20-0400 Body weight 99.34 kg Kareen Franc [employer]ICE PS[employer]CHIATRIC NURSE[employer] Work Phone: [facility] 11-14-2022 11:20-0400 Diastolic blood pressure 80 mm[Hg] Kareen Franc [employer] PRACTICE PSYCHIATRIC NURSE.[employer] Work Phone: [facility] 11-14-2022 11:20-0400 Heart rate 64 /min Kareen Franc [employer] PRACTICE PSYCHIATRIC NURSE.[employer] Work Phone: [facility] 11-14-2022 11:20-0400 SaO2% (BldA) [Mass fraction] 96 % Kareen Franc [employer] PRACTICE PSYCHIATRIC NURSE.[employer] Work Phone: [facility] 11-14-2022 11:20-0400 Systolic blood pressure 119 mm[Hg] Kareen Billmarilin GALLEGOS Work Phone: [facility] 11-01-2022 09:03-0400 Body weight 99.79 kg Jesse Longo MD Work Phone: [facility] 11-01-2022 09:03-0400 Diastolic blood pressure 78 mm[Hg] Jesse Longo MD Work Phone: [facility] 11-01-2022 09:03-0400 Heart rate 85 /min Jesse Longo MD Work Phone: [facility] 11-01-2022 09:03-0400 Systolic blood pressure 132 mm[Hg] Jesse Longo MD Work Phone: [facility] 05-11-2022 09:02-0400 Body weight 105.96 kg Carlos Garcia MD Work Phone: [facility] 05-11-2022 09:02-0400 Diastolic blood pressure 82 mm[Hg] Carlos Garcia MD Work Phone: [facility] 05-11-2022 09:02-0400 Heart rate 56 /min Carlos Garcia MD Work Phone: [facility] 05-11-2022 09:02-0400 SaO2% (BldA) [Mass fraction] 98 % Carlos Garcia MD Work Phone: [facility] 05-11-2022 09:02-0400 Systolic blood pressure 125 mm[Hg] Carlos Garcia MD Work Phone: [facility] 05-10-2022 08:56-0400 Body weight 105.23 kg Jesse Longo MD Work Phone: [facility] 05-10-2022 08:56-0400 Diastolic blood pressure 78 mm[Hg] Jesse Longo MD Work Phone: [facility] 05-10-2022 08:56-0400 Heart rate 56 /min Jesse Longo MD Work Phone: [facility] 05-10-2022 08:56-0400 Systolic blood pressure 141 mm[Hg] Jesse Longo MD Work Phone: [facility] 03-06-2022 09:52-0400 Body height 185.4 cm Ahtiny Elghawy DO Work Phone: [facility] 03-06-2022 09:52-0400 Body temperature 97.3 [degF] Ahmed Elghawy DO Work Phone: [facility] 03-06-2022 09:52-0400 Body weight 104.01 kg Ahmed Elghawy DO Work Phone: [facility] 03-06-2022 09:52-0400 Diastolic blood pressure 77 mm[Hg] Ahmed Elghawy DO Work Phone: [facility] 03-06-2022 09:52-0400 Heart rate 54 /min Ahtiny Elmoodyawy DO Work Phone: [facility] 03-06-2022 09:52-0400 Systolic blood pressure 141 mm[Hg] Ahmed Elghawy DO Work Phone: [facility] 11-28-2021 09:56-0400 Diastolic blood pressure 72 mm[Hg] [facility] 11-28-2021 09:56-0400 Heart rate 48 /min [facility] 11-28-2021 09:56-0400 SaO2% (BldA) [Mass fraction] 95 % [facility] 11-28-2021 09:56-0400 Systolic blood pressure 125 mm[Hg] [facility] 11-28-2021 08:34-0400 Body temperature 97.3 [degF] [facility] 11-09-2021 09:45-0400 Body weight 101.61 kg Jesse Longo MD Work Phone: [facility] 11-09-2021 09:45-0400 Diastolic blood pressure 71 mm[Hg] Jesse Longo MD Work Phone: [facility] 11-09-2021 09:45-0400 Heart rate 46 /min Jesse Longo MD Work Phone: [facility] 11-09-2021 09:45-0400 Systolic blood pressure 134 mm[Hg] Jesse Longo MD Work Phone: [facility] 11-09-2021 08:05-0400 Body height 188 cm Carlos Garcia MD Work Phone: [facility] 11-09-2021 08:05-0400 Body weight 101.88 kg Carlos Garcia MD Work Phone: [facility] 11-09-2021 08:05-0400 Diastolic blood pressure 86 mm[Hg] Carlos Garcia MD Work Phone: [facility] 11-09-2021 08:05-0400 Heart rate 54 /min Carlos Garcia MD Work Phone: [facility] 11-09-2021 08:05-0400 Systolic blood pressure 112 mm[Hg] Carlos Garcia MD Work Phone: [facility] Encounters Encounter Date Encounter Type Care Provider Facility Start: 02-03-2024 Refill Layla Roger PA-C Work Phone: Cardiology Comment on above: Refill Request Start: 01-09-2024 End: 01-09-2024 ambulatory JESSE LONGO Facility:[facility] Start: 01-09-2024 End: 01-09-2024 Patient encounter procedure Jesse Longo MD Work Phone: Cardiology Comment on above: Persistent atrial fi brillation (HCC) (Primary Dx) Start: 12-20-2023 Get Medical Advice Layla correa PA-C Work Phone: Cardiology Comment on above: METOPROLOL Refill an d dosage Start: 11-27-2023 End: 11-27-2023 ambulatory ARCHANA HARKINS Facility:[facility] Start: 11-25-2023 End: 11-25-2023 ambulatory TAE MARTINEZ Facility:[facility] Start: 11-21-2023 Telephone encounter Layla mcdowell PA-C Work Phone: Cardiology Comment on above: Patient Update Start: 11-15-2023 End: 11-15-2023 ambulatory TAE MARTINEZ Facility:[facility] Start: 11-15-2023 End: 11-15-2023 Patient encounter procedure Nurse Card [facility] Rej Work Phone: Cardiology Comment on above: Persistent atrial fi brillation (HCC) Start: 11-08-2023 End: 11-08-2023 ambulatory TAE MARTINEZ Facility:[facility] Start: 11-08-2023 End: 11-08-2023 Patient encounter procedure Layla Roger PA-C Work Phone: Cardiology Comment on above: Persistent atrial fi brillation (HCC) (Primary Dx); S/P ablation of atrial fibrillation; On continuous oral anticoagulation Start: 11-01-2023 Telephone encounter Jesse Longo MD Work Phone: Cardiology Comment on above: Patient is Back in A fib Start: 10-15-2023 End: 10-15-2023 ambulatory JESSE LONGO Facility:[facility] Start: 10-14-2023 Telephone encounter Layla mcdowell PA-C Work Phone: Cardiology Comment on above: Procedure (Cardiover kyle) Start: 10-11-2023 End: 10-12-2023 ambulatory LAYLA ROGER Facility:[facility] Start: 10-11-2023 End: 10-11-2023 ambulatory TAE MARTINEZ Facility:[facility] Start: 10-07-2023 Telephone encounter Jesse Longo MD Work Phone: Cardiology Comment on above: A-fib Start: 08-08-2023 End: 08-08-2023 ambulatory TAE MARTINEZ Facility:[facility] Start: 07-24-2023 End: 07-24-2023 ambulatory Tae Martinez Other [employer] Other Start: 07-24-2023 Telephone encounter Tae Martinez [facility] Start: 06-05-2023 End: 06-05-2023 ambulatory Tae Martinez Other [employer] Other Start: 06-05-2023 Office outpatient vi sit 25 minutes Tae Martinez [facility] Start: 05-21-2023 ambulatory Carlos ansari MD Work Phone: Cardiology Comment on above: LDL Start: 05-21-2023 E-mail encounter fro m caregiver Carlos Garcia MD Work Phone: [facility] Start: 05-20-2023 Telephone encounter Tae Martinez [facility] Start: 05-20-2023 End: 05-20-2023 ambulatory CARLOS GARCIA [employer] Other Start: 05-17-2023 End: 05-17-2023 ambulatory CARLOS GARCIA Facility:[facility] Start: 05-17-2023 End: 05-17-2023 Patient encounter procedure Carlos Garcia MD Work Phone: Cardiology Comment on above: Coronary artery dise ase involving otoe-[place]ouria heart without angina pectoris, unspecified vessel or lesion type (Primary Dx) Start: 04-25-2023 Refill Carlos ansari MD Work Phone: Cardiology Comment on above: Refill Request Start: 01-17-2023 End: 01-17-2023 ambulatory JESSE LONGO Facility:[facility] Start: 01-17-2023 End: 01-17-2023 Patient encounter procedure Jesse Longo MD Work Phone: Cardiology Comment on above: Persistent atrial fi brillation (HCC) (Primary Dx) Start: 11-24-2022 Refill Jesse Longo MD Work Phone: Cardiology Comment on above: Refill Request Start: 11-14-2022 End: 11-14-2022 Patient encounter procedure Kareen Bruner APRN.CNP Work Phone: Cardiology Comment on above: Persistent [...] Start: 07-21-2022 ambulatory Carmen Johnson RN NURSE [employer] Comment on above: Post Op Bleeding (Br uising/) Start: 06-04-2022 Orders Only Jesse Longo MD Work Phone: Cardiology Comment on above: Persistent atrial fi brillation (HCC) (Primary Dx) Start: 05-31-2022 Refill Carlos ansari MD Work Phone: Cardiology Comment on above: Refill Request Start: 05-11-2022 End: 05-11-2022 Patient encounter procedure Carlos Garcia MD Work Phone: Cardiology Comment on above: Coronary artery dise ase involving otoe-[place] coronary artery of otoe-[place]ouria heart, unspecified whether angina present (Primary Dx) Start: 05-10-2022 End: 05-10-2022 Patient encounter procedure Jesse Longo MD Work Phone: Cardiology Comment on above: Persistent atrial fi brillation (HCC) (Primary Dx) Start: 03-21-2022 Refill Carlos ansari MD Work Phone: Cardiology Comment on above: Refill Request Start: 03-16-2022 End: 03-17-[address] TAE MARTINEZ Facility:[facility] Start: 03-06-2022 End: 03-06-2022 Patient encounter procedure Javier Pop DO Work Phone: [facility] Comment on above: Primary osteoarthrit is of both knees (Primary Dx); Positive KISHA (antinuclear antibody) Start: 12-19-2021 Refill Jesse Longo MD Work Phone: Cardiology Comment on above: Refill Request Start: 12-13-2021 End: 12-13-2021 Patient encounter procedure Stress Echo [facility] Rej Work Phone: Cardiology Comment on above: Under observation fo r suspected coronary artery disease; Essential hypertension; Persistent atrial fibrillation (HCC); Pulmonary hypertension, unspecified (HCC) Start: 12-05-2021 Encounter for genera l adult medical examination without abnormal findings DR TAE MARTINEZ [facility] Start: 11-29-2021 End: 11-30-[address] TAE MARTINEZ Facility:[facility] Start: 11-29-2021 End: 11-30-2021 Encounter for general adult medical examination without abnormal findings DR TAE MARTINEZ Facility:[facility] Start: 11-28-2021 Telephone encounter Carlos joseph MD Work Phone: Cardiology Comment on above: Results; Orders Start: 11-28-2021 End: 11-28-2021 Subsequent hospital visit by physician [facility] Radiology Comment on above: Under observation fo r suspected coronary artery disease [Z03.89] Start: 11-27-2021 ambulatory Carlos ansari MD Work Phone: Cardiology Comment on above: Medications Start: 11-27-2021 Telephone encounter Carlos joseph MD Work Phone: Cardiology Comment on above: Orders Start: 11-23-2021 Adult health examination Ricardo Martinez Other [employer] Other Start: 11-09-2021 End: 11-09-2021 Patient encounter procedure Carlos Garcia MD Work Phone: Cardiology Comment on above: Under observation fo r suspected coronary artery disease (Primary Dx); Other hyperlipidemia; Essential hypertension; Persistent atrial fibrillation (HCC); Pulmonary hypertension, unspecified (HCC); Abnormal nuclear stress test Persistent atrial fi brillation (HCC) (Primary Dx) Procedures Date Procedure Procedure Detail Performing Clinician Start: 01-09-2024 Ecg routine ecg w/le ast 12 lds i&r only [facility] Provider Start: 11-08-2023 Ecg routine ecg w/le ast [...] Phone: Start: 11-29-[address] LANIE MARTINEZ Comment on above: Performed By: #### P [facility] #### [facility] [address] [place] [address] Dr. Sunil Claudio Start: 11-28-2021 Cta hrt [...] - S too or Plasma Lipid Screening [facility] Start: 05-20-2028 Lipid panel Lipid Screening [facility] Start: 04-04-2028 Urine microalbumin profile DTa P,Tdap,Td Vaccine (2 - Tdap) [facility] Start: 05-18-2027 Lipid 1996 panel - S too or Plasma Lipid Screening [facility] Start: 05-18-2027 LIPID SCREEN LIPID SCREEN [facility] Start: 11-29-2026 PROSTATE CANCER SCRE ENING DISCUSSION PROSTATE CANCER SCREENING DISCUSSION [facility] Start: 11-29-2026 Prostate specific an tigen measurement Prostate Cancer Screening Discussion [facility] Start: 11-28-2026 LIPID SCREEN LIPID SCREEN [facility] Start: 11-24-2026 Diabetes Screening [facility] Start: 10-10-2026 Diabetes Screening [facility] Start: 05-12-2026 LIPID SCREEN LIPID SCREEN [facility] Start: 11-05-2025 DIABETES SCREEN DIABETES SCREEN [facility] Start: 11-05-2025 Diabetes Screening Diabetes Screenin g [facility] Start: 07-13-2025 DIABETES SCREEN DIABETES SCREEN [facility] Start: 12-18-2024 DIABETES SCREEN DIABETES SCREEN [facility] Start: 11-28-2024 DIABETES SCREEN DIABETES SCREEN [facility] Start: 10-10-2024 BP Controlled (<130/80) BP Controlle d (<130/80) [facility] Start: 08-08-2024 BP Controlled (<130/80) BP Controlle d (<130/80) [facility] Start: 07-23-2024 End: 07-23-2024 Patient encounter procedure 07/23/2024 8:30 AM EST Office Visit Cardiology [address] [place] [address] [place] [address] [place] [address] follow up 6 months Cardiology Comment on above: follow up 6 months Start: 07-11-2024 DIABETES SCREEN DIABETES SCREEN [facility] Start: 05-20-2024 Hepatitis B surface antibody level LDL Cholesterol [facility] Start: 05-17-2024 BP Controlled (<130/80) BP Controlle d (<130/80) [facility] Start: 03-15-2024 Influenza vaccination Influenza Vacc ine (#1) [facility] Start: 01-09-2024 End: 01-09-2024 Patient encounter procedure 01/09/2024 11:00 AM EDT Office Visit Cardiology [address] [place] [id number] [place] [address] [place] [address] 6 month follow up Cardiology Comment on above: 6 month follow up Start: 11-28-2023 End: 02-27-2024 Basic metabolic 2000 panel - Serum or Plasma BASIC METABOLIC PANEL Lab Routine Persistent atrial fibrillation (HCC) Expected: 11/28/2023 (Approximate), Expires: 02/27/2024 [facility] Comment on above: Expected: 11/28/2023 (Approximate), Expires: 02/27/2024 Start: 11-28-2023 End: 02-27-2024 CBC panel - Blood by Automated count COMPLETE BLOOD COUNT Lab Routine Persistent atrial fibrillation (HCC) Expected: 11/28/2023 (Approximate), Expires: 02/27/2024 [facility] Comment on above: Expected: 11/28/2023 (Approximate), Expires: 02/27/2024 Start: 11-28-2023 End: 02-27-2024 Magnesium [Mass/volume] in Serum or Plasma MAGNESIUM Lab Routine Persistent atrial fibrillation (HCC) Expected: 11/28/2023 (Approximate), Expires: 02/27/2024 [facility] Comment on above: Expected: 11/28/2023 (Approximate), Expires: 02/27/2024 Start: 11-28-2023 End: 11-28-2023 ambulatory 11/28/2023 8:30 AM EDT Results Only [facility] [address] [place] [address] [place] [address] [facility] Start: 11-15-2023 End: 11-15-2023 Patient encounter procedure 11/15/2023 8:30 AM EDT Office Visit [facility] [address] [facility] [place] [address] ekg Cardiology Comment on above: ekg Start: 10-04-2023 Advance Directive Discussion Advance Directive Discussion [facility] Start: 10-04-2023 Pneumococcal Vaccine : 65+ (1 of 1 - PCV) Pneumococcal Vaccine: 65+ (1 of 1 - PCV) [facility] Start: 08-03-2023 BP CONTROLLED (<130/80) BP CONTROLLE D (<130/80) [facility] Start: 07-15-2023 Behavioral Health Screening Behavioral Health Screening [facility] Start: 07-15-2023 Depression Assessment Depression Ass essment [facility] Start: 05-18-2023 Hepatitis B surface antibody level LDL CHOLESTEROL [facility] Start: 05-17-2023 End: 08-16-2023 Lipid 1996 panel - Serum or Plasma LIPID PANEL BASIC Lab Routine Coronary artery disease involving otoe-[place]ouria heart without angina pectoris, unspecified vessel or lesion type Expected: 05/17/2023, Expires: 08/16/2023 [facility] Work Phone: Comment on above: Expected: 05/17/2023 , Expires: 08/16/2023 Start: 03-15-2023 Covid-19 Vaccine () Covid-19 Vaccine () [facility] Start: 03-15-2023 Influenza vaccination C [facility] Start: 11-28-2022 Hepatitis B surface antibody level LDL CHOLESTEROL [facility] Start: 11-01-2022 End: 01-01-2023 Basic metabolic 2000 panel - Serum or Plasma BASIC METABOLIC PNL Lab Routine Paroxysmal atrial fibrillation (HCC) Expected: 11/01/2022, Expires: 01/01/2023 [facility] Work Phone: Comment on above: Expected: 11/01/2022 , Expires: 01/01/2023 Start: 11-01-2022 End: 01-01-2023 CBC W Auto Differential panel - Blood CBC + DIFF Lab Routine Paroxysmal atrial fibrillation (HCC) Expected: 11/01/2022, Expires: 01/01/2023 [facility] Work Phone: Comment on above: Expected: 11/01/2022 , Expires: 01/01/2023 Start: 09-03-2022 Adult depression scr eening assessment DEPRESSION SCREENING [facility] Start: 07-15-2022 DEPRESSION ASSESSMENT DEPRESSION ASS ESSMENT [facility] Start: 05-12-2022 Hepatitis B surface antibody level LDL CHOLESTEROL [facility] Start: 05-11-2022 End: 07-11-2022 Lipid 1996 panel - Serum or Plasma LIPID PANEL BASIC Lab Routine Coronary artery disease involving otoe-[place]ouria coronary artery of o[place] heart, unspecified whether angina present Expected: 05/11/2022, Expires: 07/11/2022 [facility] Work Phone: Comment on above: Expected: 05/11/2022 , Expires: 07/11/2022 Start: 03-15-2022 Influenza vaccination [facility] Start: 11-28-2021 End: 01-28-2022 Basic metabolic 2000 panel - Serum or Plasma BASIC METABOLIC PNL Lab Routine Coronary artery disease involving o[place]e-[place]ouria coronary artery of [place] heart, unspecified whether angina present Expected: 11/28/2021, Expires: 01/28/2022 [facility] Work Phone: Comment on above: Expected: 11/28/2021 , Expires: 01/28/2022 Start: 11-28-2021 End: 01-28-2022 CBC panel - Blood by Automated count CBC Lab Routine Coronary artery disease involving otoe-[place]ouria coronary artery of [place] heart, unspecified whether angina present Expected: 11/28/2021, Expires: 01/28/2022 [facility] Work Phone: Comment on above: Expected: 11/28/2021 , Expires: 01/28/2022 Start: 11-09-2021 End: 01-09-2022 Basic metabolic 2000 panel - Serum or Plasma BASIC METABOLIC PNL Lab Routine Under observation for suspected coronary artery disease Expected: 11/09/2021, Expires: 01/09/2022 [facility] Work Phone: Comment on above: Expected: 11/09/2021 , Expires: 01/09/2022 Start: 11-09-2021 End: 01-09-2022 LIPID PANEL BASIC LIPID PANEL BASIC Lab Routine Under observation for suspected coronary artery disease Expected: 11/09/2021, Expires: 01/09/2022 [facility] Work Phone: Comment on above: Expected: 11/09/2021 , Expires: 01/09/2022 Start: 07-15-2021 DEPRESSION ASSESSMENT DEPRESSION ASS ESSMENT [facility] Start: 07-14-2021 COVID-19 VACCINE (4 - Booster for Moderna series) COVID-19 VACCINE (4 - Booster for Moderna series) [facility] Start: 2018 RSV Vaccine (1 - 1-d ose 60+ series) RSV Vaccine (1 - 1-dose 60+ series) [facility] Start: 2013 PROSTATE CANCER SCRE ENING DISCUSSION PROSTATE CANCER SCREENING DISCUSSION [facility] Start: 2008 SHINGRIX VACCINE (1 of 2) HANSON GRIX VACCINE (1 of 2) [facility] Start: 10-04-2003 COLOGUARD (FIT-DNA) COLOGUARD (FIT-D NA) [facility] Start: 10-04-2003 Colonoscopy COLONOSCOPY [facility] Start: 10-04-2003 COLORECTAL CANCER SCREENING COLORECTAL CANCER SCREENING [facility] Start: 10-04-[address] [facility] Start: 10-04-2003 FECAL OCCULT BLOOD FECAL OCCULT BLOO D [facility] Start: 10-04-2003 Screening for malign ant neoplasm of colon [facility] Start: 10-04-2003 SIGMOIDOSCOPY SIGMOIDOSCOPY [facility] Start: 1977 Urine microalbumin profile [facility] Start: 1976 ANNUAL PCP TEAM COGNOS BI ADMINISTRATOR HARMAN DISEASE VISIT ANNUAL PCP TEAM CHRONIC DISEASE VISIT [facility] Start: 1976 BP CONTROLLED (<130/80) BP CONTROLLE D (<130/80) [facility] Start: 1976 HEPATITIS C SCREENING HEPATITIS C [facility] Start: 1976 Hepatitis C screening Hepatitis C [facility] Start: 1976 HIV SCREENING HIV SCREENING [facility] Start: 1976 HIV screening HIV Screening [facility] Start: 10-04-1963 COVID-19 VACCINE (#1) COVID-19 VACCI NE (#1) [facility] Start: 10-04-1963 COVID-19 VACCINE (1) COVID-19 VACCIN E (1) [facility] Start: 04-05-1959 COVID-19 VACCINE (#1) COVID-19 VACCI NE (#1) [facility] Cardioversion electi ve arrhythmia internal spx CARDIOVERSION, ELECTIVE, ELECTRICAL Cardiology Routine Persistent atrial fibrillation (HCC) Ordered: 11/21/2023 [facility] Work Phone: Comment on above: Ordered: 11/21/2023 End: 12-09-2022 Cta hrt cornry art/bypass grfts contrst 3d post CTA CORONARY W IVCON Radiology Routine Under observation for suspected coronary artery disease Abnormal nuclear stress test 1 Occurrences starting 11/09/2021 until 12/09/2022 [facility] Work Phone: Comment on above: 1 Occurrences starti ng 11/09/2021 until 12/09/2022 End: 11-09-2022 ECG COMPLETE ECG COMPLETE ECG Routine Persistent atrial fibrillation (HCC) 1 Occurrences starting 11/09/2021 until 11/09/2022 [facility] Work Phone: Comment on above: 1 Occurrences starti ng 11/09/2021 until 11/09/2022 End: 05-10-2023 ECG COMPLETE ECG COMPLETE ECG Routine Persistent atrial fibrillation (HCC) 1 Occurrences starting 05/10/2022 until 05/10/2023 [facility] Work Phone: Comment on above: 1 Occurrences starti ng 05/10/2022 until 05/10/2023 End: 11-02-2023 ECG COMPLETE ECG COMPLETE ECG Routine Persistent atrial fibrillation (HCC) 1 Occurrences starting 11/01/2022 until 11/02/2023 [facility] Work Phone: Comment on above: 1 Occurrences starti ng 11/01/2022 until 11/02/2023 ECG COMPLETE ECG COMPLETE ECG 11/01/2022 9:02 AM EDT [facility] End: 01-18-2024 ECG COMPLETE ECG COMPLETE ECG Routine Persistent atrial fibrillation (HCC) 1 Occurrences starting 01/17/2023 until 01/18/2024 [facility] Work Phone: Comment on above: 1 Occurrences starti ng 01/17/2023 until 01/18/2024 ECG COMPLETE ECG COMPLETE ECG 01/17/2023 8:35 AM EDT [facility] ECG COMPLETE [facility] Work Phone: Comment on above: Ordered: 11/08/2023 End: 11-07-2024 ECG COMPLETE ECG COMPLETE ECG Routine Persistent atrial fibrillation (HCC) 1 Occurrences starting 11/08/2023 until 11/07/2024 [facility] Comment on above: 1 Occurrences starti ng 11/08/2023 until 11/07/2024 ECG COMPLETE [facility] Work Phone: Comment on above: Ordered: 01/09/2024 End: 11-09-2022 Echocardiography ECHO Cardiology Routine Under observation for suspected coronary artery disease Essential hypertension Persistent atrial fibrillation (HCC) Pulmonary hypertension, unspecified (HCC) 1 Occurrences starting 11/09/2021 until 11/09/2022 [facility] Work Phone: Comment on above: 1 Occurrences starti ng 11/09/2021 until 11/09/2022 [facility] Immunizations Immunization Date Immunization Notes Care Provider Fa cili 04-30-2023 influenza virus vaccine, unspecified formulation Layla Roger PA-C Work Phone: [facility] 05-15-2022 COVID-19 Pfizer (bivalent) Tae Martinez Other [employer] Other 05-02-2022 influenza, injectabl e, quadrivalent, contains preservative Carlos Garcia MD Work Phone: [facility] 05-02-2022 Seasonal, quadrivalent, recombinant, injectable influenza vaccine, preservative free Tae Martinez Other [employer] Other 05-02-2022 influenza virus vaccine, unspecified formulation Carlos Garcia MD Work Phone: [facility] 07-12-2021 zoster vaccine recombinant Tae Martinez Other [employer] Other 05-19-2021 COVID-19 original vaccine, booster dose, monovalent (MODERNA) Carlos Garcia MD Work Phone: [facility] 05-15-2021 zoster vaccine recombinant Tae Martinez Other [employer] Other 04-21-2021 influenza virus vaccine, split virus (incl. purified surface antigen) Tae Martinez Other [employer] Other 10-15-2020 COVID-19 original vaccine, full dose, monovalent (MODERNA) Carlos Garcia MD Work Phone: [facility] 09-17-2020 COVID-19 original vaccine, full dose, monovalent (MODERNA) Carlos Garcia MD Work Phone: [facility] 06-19-2018 influenza virus vaccine, split virus (incl. purified surface antigen) Tae Martinez Other [employer] Other 06-19-2018 Influenza, injectabl e, [place] Canine Kidney, preservative free, quadrivalent Carlos Garcia MD Work Phone: [facility] 04-04-2018 diphtheria, tetanus toxoids and acellular pertussis vaccine, unspecified formulation Tae Martinez Other [facility] Other 06-25-2017 influenza, injectabl e, quadrivalent, preservative free Carlos Garcia MD Work Phone: [facility] 06-25-2017 tetanus and diphther ia toxoids, adsorbed, preservative free, for adult use (5 Lf of tetanus toxoid and 2 Lf of diphtheria toxoid) Tae Juan Other [employer] Other 06-22-2016 influenza virus vaccine, split virus (incl. purified surface antigen) Tae Juan Other [employer] [facility] Other 03-20-2015 influenza virus vaccine, split virus (incl. purified surface antigen) Tae Martinez Other [employer] Other Payers Date Payer Category Payer Unknown MMO MMO DANIA [id number] 2015-Present [phone] [address] [address] [place] [address] O [id number] 2015 Unknown [id number] 1959 Unknown [id number] 1958 Unknown [id number] 1958 Unknown [id number] Social History Date Type Detail Facility Start: 03-03-2021 End: 03-06-2022 Tobacco smoking status NHIS Never smoked tobacco [facility] Start: 03-03-2021 End: 03-06-2022 Tobacco use and exposure Smokeless tobacco non-user [facility] Start: 11-09-2021 End: 11-08-2023 Alcohol intake Current drinker of alcohol (finding) [facility] Start: 03-03-2021 History SDOH Alcohol Frequency 1 [facility] Start: 03-03-2021 History SDOH Alcohol Comment rare [facility] Start: 1960 Sex Assigned At Male C [facility] Start: 10-30-2021 End: 05-10-2022 Exposure to SARS-CoV-2 (event) Not sure [facility] Start: 11-14-2022 End: 01-17-2023 History of Social function [facility] Start: 11-14-2022 End: 01-17-2023 Tobacco use panel [facility] Adult Depression Screening Assessment 0 [facility] Start: 07-14-2021 Gender identity Identifies as male gender (finding) [facility] Start: 07-14-2021 Sexual orientation Heterosexual (fin ding) [facility] Start: 11-27-2023 End: 01-09-2024 Alcohol intake Ex-drinker (finding) [facility] Goals Date Patient Goal Desired Activity /State Personal health goal Clinical Notes 11-09-2021 to 02-03-2024 Telephone Encounter - Radha Christensen APRN.CNP - 02/03/2024 2:11 PM EDTTelephone Encounter - Radha Christensen APRN.CNP - 02/03/2024 2:11 PM Jesse Ruiz MD - 01/09/2024 10:58 AM EDT Note Date & Type Note Facility 02-03-2024 Telephone encounter Note The following approved medication requests have been transmitted electronically. Requested Prescriptions Signed Prescriptions Disp Refills flecainide (TAMBOCOR) 100 mg tablet 180 tablet 3 Sig: take 1 tablet by mouth two times a day. Authorizing Provider: JESSE LONGO Ordering User: RADHA CHRISTENSEN APRN.CNP [facility] Work Phone: 02-03-2024 Miscellaneous Notes The following approved medication requests have been transmitted electronically. Requested Prescriptions Signed Prescriptions Disp Refills flecainide (TAMBOCOR) 100 mg tablet 180 tablet 3 Sig: take 1 tablet by mouth two times a day. Authorizing Provider: JESSE LONGO Ordering User: RADHA CHRISTENSEN APRN.[employer] Received request for refill of the following medications: Requested Prescriptions Pending Prescriptions Disp Refills flecainide (TAMBOCOR) 100 mg tablet [Pharmacy Med Name: FLECAINIDE ACETATE 100MG TABLET] 60 tablet 2 Sig: take 1 tablet by mouth two times a day. Patient requested a 90 day refill. Pharmacy verified and updated accordingly. Patient was last seen in cardiology office: 01-09-2024. Upcoming appointment scheduled: 07-23-2024. Labs: Hemoglobin (g/dL) Date Value 11/25/2023 14.7 08/14/2021 14.1 Hematocrit (%) Date Value 11/25/2023 44.2 08/14/2021 41.9 WBC (k/uL) Date Value 11/25/2023 8.76 08/14/2021 9.89 Platelet Count (k/uL) Date Value 11/25/2023 223 08/14/2021 258 Creatinine Date Value Ref Range Status 11/25/2023 0.82 0.73 - 1.22 mg/dL Final 10/11/2023 0.71 (L) 0.73 - 1.22 mg/dL Final documented in this encounter [facility] 02-03-2024 Telephone encounter Note Received request for refill of the following medications: Requested Prescriptions Pending Prescriptions Disp Refills flecainide (TAMBOCOR) 100 mg tablet [Pharmacy Med Name: FLECAINIDE ACETATE 100MG TABLET] 60 tablet 2 Sig: take 1 tablet by mouth two times a day. Patient requested a 90 day refill. Pharmacy verified and updated accordingly. Patient was last seen in cardiology office: 01-09-2024. Upcoming appointment scheduled: 07-23-2024. Labs: Hemoglobin (g/dL) Date Value 11/25/2023 14.7 08/14/2021 14.1 Hematocrit (%) Date Value 11/25/2023 44.2 08/14/2021 41.9 WBC (k/uL) Date Value 11/25/2023 8.76 08/14/2021 9.89 Platelet Count (k/uL) Date Value 11/25/2023 223 08/14/2021 258 Creatinine Date Value Ref Range Status 11/25/2023 0.82 0.73 - 1.22 mg/dL Final 10/11/2023 0.71 (L) 0.73 - 1.22 mg/dL Final [facility] 01-09-2024 Note HNO ID: [id number] Author: JESSE LONGO MD Service: ? Author Type: Physician Type: Progress Notes Filed: 01/09/2024 11:13 Note Text: [facility] [place] SECTION OF REGIONAL CARDIOLOGY OUTPATIENT VISIT DATE January 09, 2024 OUTPATIENT VISIT TYPE ESTABLISHED PRIMARY CARE PHYSICIAN: Tae Martinez ([facility]) [address] [place] [address] CHIEF COMPLAINT: Persistent Afib. HISTORY OF PRESENT ILLNESS: Mr. Kohli is a 63 year old male with persistent AF s/p ablation but has recurrence recurring repeat DCCV x 2. IMPRESSION: Persistent AF: S/p PVI + PWI but with early recurrence requiring DCCV x2. Feels better in sin us rhythm. On flecainide. ECG today showed sinus bradycardia. We discussed the management options. Continue medical therapy as is for now. Reduce dose of metoprolol to 12.5 mg daily. Follow up in 6 months. If any further recurrence before then, we consider for re-do ablation. Stroke prevention: On Eliquis. Had a fall twice with significant bleeding. CHADsVasc is 2. Willing to consider watchman should it be indicated if any other future falls or bleeding. PLAN AND RECOMMENDATIONS: Persistent AF: S/p PVI + PWI but with early recurrence requiring DCCV x2. Feels better in sin us rhythm. On flecainide. ECG today showed sinus bradycardia. We discussed the management options. Continue medical therapy as is for now. Reduce dose of metoprolol to 12.5 mg daily. Follow up in 6 months. If any further recurrence before then, we consider for re-do ablation. Stroke prevention: On Eliquis. Had a fall twice with significant bleeding. CHADsVasc is 2. Willing to consider watchman should it be indicated if any other future falls or bleeding. PHYSICAL EXAMINATION: There were no vitals taken for this visit. HEENT: normocephalic, EOMI Heart: regular rhythm Lungs: clear to auscultation Abdomen: bowel sounds present Extremities: no edema Musculoskeletal: chest wall nontender Neurological: alert and oriented Psychiatric: appropriate and cooperative Skin: no rash, cellulitis or lesions appreciated CARDIOVASCULAR MEDICINE TESTING: I have personally reviewed ECG Last EKG Result Conclusion ECG COMPLETE Collected: 11/27/2023 9:40 AM (Edited Result - FINAL) Impression: Sinus bradycardia Abnormal R-wave progression, late transition Inferior infarct, old Abnormal ECG Confirmed by ARCHANA HARKINS M.D. ([id number]) on 12/01/2023 9:51:31 PM PAST CARDIAC HISTORY: See below PAST [...] Never used Substance Use Topics Alcohol use: Not Currently Comment: rare Drug use: Never FAMILY HISTORY Problem Relation Age of Onset Coronary Artery Disease Father 57 smoker; shortage worker Emphysema Paternal Grandfather ALLERGIES Allergen Reactions Penicillins Rash Sulfa (Sulfonamide * Swelling CURRENT MEDICATIONS: metoprolol succinate ER (TOPROL XL) 25 mg 24 hr tablet Take 1 tablet by mouth daily at bedtime. flecainide (TAMBOCOR) 100 mg tablet Take 1 tablet by mouth two times a day. ezetimibe (ZETIA) 10 mg tablet Take 1 [...] Take 400 mg by mouth once daily. [facility] 01-09-2024 History of Presen t illness Narrative Images from the original note were not included. [facility] [place] SECTION OF REGIONAL CARDIOLOGY OUTPATIENT VISIT DATE January 09, 2024 OUTPATIENT VISIT TYPE ESTABLISHED PRIMARY CARE PHYSICIAN: Tae Martinez ([facility]) [facility] [place] [address] CHIEF COMPLAINT: Persistent Afib. HISTORY OF PRESENT ILLNESS: Mr. Kohli is a 63 year old male with persistent AF s/p ablation but has recurrence recurring repeat DCCV x 2. IMPRESSION: Persistent AF: S/p PVI + PWI but with early recurrence requiring DCCV x2. Feels better in sin us rhythm. On flecainide. ECG today showed sinus bradycardia. We discussed the management options. Continue medical therapy as is for now. Reduce dose of metoprolol to 12.5 mg daily. Follow up in 6 months. If any further recurrence before then, we consider for re-do ablation. Stroke prevention: On Eliquis. Had a fall twice with significant bleeding. CHADsVasc is 2. Willing to consider watchman should it be indicated if any other future falls or bleeding. PLAN AND RECOMMENDATIONS: Persistent AF: S/p PVI + PWI but with early recurrence requiring DCCV x2. Feels better in sin us rhythm. On flecainide. ECG today showed sinus bradycardia. We discussed the management options. Continue medical therapy as is for now. Reduce dose of metoprolol to 12.5 mg daily. Follow up in 6 months. If any further recurrence before then, we consider for re-do ablation. Stroke prevention: On Eliquis. Had a fall twice with significant bleeding. CHADsVasc is 2. Willing to consider watchman should it be indicated if any other future falls or bleeding. PHYSICAL EXAMINATION: There were no vitals taken for this visit. HEENT: normocephalic, EOMI Heart: regular rhythm Lungs: clear to auscultation Abdomen: bowel sounds present Extremities: no edema Musculoskeletal: chest wall nontender Neurological: alert and oriented Psychiatric: appropriate and cooperative Skin: no rash, cellulitis or lesions appreciated CARDIOVASCULAR MEDICINE TESTING: I have personally reviewed ECG Last EKG Result Conclusion ECG COMPLETE Collected: 11/27/2023 9:40 AM (Edited Result - FINAL) Impression: Sinus bradycardia Abnormal R-wave progression, late transition Inferior infarct, old Abnormal ECG Confirmed by ARCHANA HARKINS M.D. ([id number]) on 12/01/2023 9:51:31 PM PAST CARDIAC HISTORY: See below PAST [...] Never used Substance Use Topics Alcohol use: Not Currently Comment: rare Drug use: Never FAMILY HISTORY Problem Relation Age of Onset Coronary Artery Disease Father 57 smoker; shortage worker Emphysema Paternal Grandfather ALLERGIES Allergen Reactions Penicillins Rash Sulfa (Sulfonamide * Swelling CURRENT MEDICATIONS: metoprolol succinate ER (TOPROL XL) 25 mg 24 hr tablet Take 1 tablet by mouth daily at bedtime. flecainide (TAMBOCOR) 100 mg tablet Take 1 tablet by mouth two times a day. ezetimibe (ZETIA) 10 mg tablet Take 1 [...] by mouth once daily. documented in this encounter [facility] 12-20-2023 Telephone encounter Note Pt wants metoprolol [...] 0.71 (L) 0.73 - 1.22 mg/dL Final [facility] 12-20-2023 Miscellaneous Notes Pt wants metoprolol 25mg [...] 1.22 mg/dL Final documented in this encounter [facility] 11-21-2023 Telephone encounter Note Called and left message for patient to call me back to schedule his cardioversion and to get labs done. [facility] 11-21-2023 Miscellaneous Notes Called and left message [...] Layla Roger PA-C documented in this encounter [facility] 11-21-2023 Telephone encounter Note EKG from 11/14 shows persistent AF Please offer him a cardioversion (we discussed this at last office visit) He will need updated labs (ordered) Dr Donta hall in December needs to stay and he may be set up for redo ablation Layla Roger PA-C [facility] 11-15-2023 Note HNO ID: [id number] Author: KATLYN ORELLANA RN Service: ? Author Type: Registered Nurse Type: Progress Notes Filed: 11/15/2023 08:43 Note Text: Pt here for EKG . Pt was started on new medication last week and here for follow up EKG. Pt with no symptoms . Provider notified of completion [facility] 11-15-2023 History of Presen t illness Narrative Pt here for EKG . Pt was started on new medication last week and here for follow up EKG. Pt with no symptoms . Provider notified of completion documented in this encounter [facility] 11-08-2023 Instructions Layla Roger PA-C - 11/08/2023 [...] in regular rhythm then will see Dr O - Move up appt with Dr Longo over the summer at either location Layla Roger PA-C documented in this encounter [facility] 11-08-2023 History of Presen t illness Narrative Images from the original note were not included. [facility] [place] Hipolito Mathis Department of Cardiovascular Medicine SECTION OF CARDIAC PACING and ELECTROPHYSIOLOGY OUTPATIENT VISIT DATE November 08, 2023 OUTPATIENT VISIT TYPE ESTABLISHED PRIMARY CARE PHYSICIAN: Tae Martinez ([facility]) [address] [id number] CHIEF COMPLAINT: Cardiology follow up HISTORY OF [...] Onset Coronary Artery Disease Father 57 smoker; shortage worker Emphysema Paternal Grandfather ALLERGIES: ALLERGIES Allergen Reactions [...] the prior echocardiographic exam performed on 03/17/21 ([facility]). Visualized aorta is borderline dilated. Latest Ref [...] with more than 50% of the total [id number] time of the visit in counseling / coordination of care. documented in this encounter [facility] 11-08-2023 Note HNO ID: [id number] Author: LAYLA ROGER PA-C Service: ? Author Type: Physician Senior Windows Systems Engineer Type: Progress Notes Filed: 11/08/2023 16:34 Note Text: [facility] [place] Hipolito Mathis Department of Cardiovascular Medicine SECTION OF CARDIAC PACING and ELECTROPHYSIOLOGY OUTPATIENT VISIT DATE November 08, 2023 OUTPATIENT VISIT TYPE ESTABLISHED PRIMARY CARE PHYSICIAN: Tae Martinez (Meek) [address] [place] [address] CHIEF COMPLAINT: Cardiology follow up HISTORY OF [...] Onset Coronary Artery Disease Father 57 smoker; shortage worker Emphysema Paternal Grandfather ALLERGIES: ALLERGIES Allergen Reactions [...] rhythm, PMI no (more content not included)... [facility] 11-05-2023 Telephone encounter Note Spoke with patient. Explained Dr. Longo said no additional recommendations at this time and we would see him on Saturday. Patient agreeable. Sravani Jimenez RN [facility] 11-05-2023 Miscellaneous Notes Spoke with patient. Explained [...] questions, call back. documented in this encounter [facility] 11-01-2023 Telephone encounter Note Patient calling. Cardioversion [...] If you have any questions, call back. [facility] 10-14-2023 Miscellaneous Notes Called and spoke to patient and scheduled his cardioversion with Dr Longo for tomorrow. Patient notified to have a trash truck driver and to be npo after midnight the night prior, He will take his morning medications with a sip of water. Follow up scheduled. ----- Message ----- From: Layla Roger PA-C Sent: 10/11/2023 3:12 PM EDT CVN next week --> either location but if at then request Dr Longo. See me post CVN 2'valente weeks afterwards Layla Roger PA-C documented in this encounter [facility] 10-11-2023 Note HNO ID: [id number] Author: LAYLA ROGER PA-C Service: ? Author Type: Physician Senior Windows Systems Engineer Type: Progress Notes Filed: 10/11/2023 15:12 Note Text: [facility] [place] [facility] Department of Cardiovascular Medicine SECTION OF CARDIAC PACING and ELECTROPHYSIOLOGY OUTPATIENT VISIT DATE October 11, 2023 OUTPATIENT VISIT TYPE ESTABLISHED PRIMARY CARE PHYSICIAN: Tae Martinez ([place]) [address] [place] [address] CHIEF COMPLAINT: Cardiology follow up HISTORY OF [...] Onset Coronary Artery Disease Father 57 smoker; shortage worker Emphysema Paternal Grandfather ALLERGIES: ALLERGIES Allergen Reactions [...] edema . Gr (more content not included)... [facility] 10-07-2023 Miscellaneous Notes I reviewed the [...] needs a TANVI. thank you Johnna Victoria APRN.TIFFANIE Spoke with patient. States he has been [...] best patient care. documented in this encounter [facility] 08-08-2023 Note HNO ID: [id number] Author: JESSE LONGO MD Service: ? Author Type: Physician Type: Progress Notes Filed: 08/08/2023 10:10 Note Text: [facility] [place] SECTION OF REGIONAL CARDIOLOGY OUTPATIENT VISIT DATE August 08, 2023 OUTPATIENT VISIT TYPE ESTABLISHED PRIMARY CARE PHYSICIAN: Tae Martinez ([place]) [address] [id number] CHIEF COMPLAINT: afib HISTORY OF PRESENT ILLNESS: [...] Onset Coronary Artery Disease Father 57 smoker; shortage worker Emphysema Paternal Grandfather ALLERGIES Allergen Reactions Penicillins [...] Take 400 mg by mouth once daily. [facility] 07-24-2023 Evaluation note Encounter Date Diagnosis Assessment Notes Jul, Primary hypertension (ICD-10 - I10) [employer] Other 11-22-2023 Evaluation note* Encounter Date Diagnosis [...] are maintaining regular scheduled appts with their photographer lithographic. No bleeding complications May, DICK (obstructive sleep apnea) (ICD-10 - G47.33) This patient is aware of the benefits associated with DICK: With continued use, the patient reduces the risk for AL, CVA, HTN, cardiac dysrhythmias and sudden cardiac [...] treatment unless TSH > 8 or symptomatic [employer] Other 11-03-2023 History of Present illness Narrative* Carlos Garcia MD - 05/17/2023 9:00 AM EDT Images from the original note were not included. [facility] [place] [facility] Department of Cardiovascular Medicine SECTION [...] RVSF/size, normal LA/RA size, 1+ TR, 1+ LA, mid ascending 3.9cm 01/19/2021 TTE: LVEF 55-60%, [...] Carlos Garcia M.D. Cardiovascular Medicine Staff [facility] Mail Code [id number] [address] [place] [address] documented in this encounterK[facility]11-[facility]-2023 NoteHNO ID: [id number] Author: Carlos Garcia MD Service: ? Author Type: Physician Type: Progress Notes Filed: 05/17/2023 9:17 AM Note Text: [facility] [place] [facility] Department of Cardiovascular Medicine SECTION [...] RVSF/size, normal LA/RA size, 1+ TR, 1+ LA, mid ascending 3.9cm 01/19/2021 TTE: LVEF 55-60%, [...] Garcia M.D. Cardiovascular Medicine Staff [facility] Mail Code [id number] [address] [facility] [place] [address] [facility] Miscellaneous Notes* Telephone Encounter - Gisell [...] - 1.22 mg/dL Final documented in this encounterKettering [facility]07-06-2023 NoteHNO ID: [id number] Author: Jesse Longo MD Service: ? Author Type: Physician Type: Progress Notes Filed: 01/17/2023 8:50 AM Note Text: [facility] [place] SECTION OF REGIONAL CARDIOLOGY OUTPATIENT VISIT DATE January 17, 2023 OUTPATIENT VISIT TYPE ESTABLISHED PRIMARY CARE PHYSICIAN: Tae Martinez ([place]) [address] [place] [address] CHIEF COMPLAINT: Post PVI HISTORY OF PRESENT [...] Onset Coronary Artery Disease Father 57 smoker; shortage worker Emphysema Paternal Grandfather ALLERGIES Allergen Reactions Penicillins [...] tabTake 400 mg by mouth once daily.Disp: Rfl:[facility]07-06-2023 History of Present illness Narrative* Jesse Longo MD - 01/17/2023 8:45 AM EDT Images from the original note were not included. [facility] [place] SECTION OF REGIONAL CARDIOLOGY OUTPATIENT VISIT DATE January 17, 2023 OUTPATIENT VISIT TYPE ESTABLISHED PRIMARY CARE PHYSICIAN: Tae Martinez (Meek) [address] [place] [address] CHIEF COMPLAINT: Post PVI HISTORY OF PRESENT [...] Onset Coronary Artery Disease Father 57 smoker; shortage worker Emphysema Paternal Grandfather ALLERGIES Allergen Reactions Penicillins [...] mouth once daily.^Disp: ^Rfl: documented in this encounterKettering [facility]05-16-2023 Miscellaneous Notes* Telephone Encounter - Radha Christensen APRN.CNP - 11/27/2022 7:49 AM EDT This was filled 3 months ago for 3 months. Patient just needs to call pharmacy for refill. Radha Christensen APRN.TIFFANIE * Telephone Encounter - Radha Arceo MA - 11/26/2022 8:26 AM EDT Usha 11/01/22 Nov 01/17/23 documented in this encounterKettering [facility]05-03-2023 History of Present illness Narrative* Kareen Bruner APRN.CNP - 11/14/2022 11:35 AM EDT Images from the original note were not included. [facility] [place] [facility] Department of Cardiovascular Medicine SECTION OF CARDIAC PACING and ELECTROPHYSIOLOGY OUTPATIENT VISIT DATE November 14, 2022 OUTPATIENT VISIT TYPE ESTABLISHED PRIMARY CARE PHYSICIAN: Tae Martinez ([place]) [address] [place] [address] REFERRING PHYSICIAN: No referring provider defined for this encounter. CHIEF COMPLAINT: follow up s/p dcc HISTORY OF PRESENT ILLNESS: Mr. Kohli is a 62 year old male who presents today for a cardiovascular medicine follow up s/p cardioversion on 11/05/[address] Brooks. He is an established patient of Dr. Garcia and Dr. Longo for history of persistent atrial fibrillation (s/p PVI 07/2022, recurrence of AF in October, sotalol DC'ed & amiodarone initiated, s/p DCCV, [id number] 1: hypertension), preserved LV systolic function (Echo 12/13/21: 69%). Other past medical history includes hypertension, hyperlipidemia, RA, BPH,DICK (no CPAP). Doing well today, in NSR w/o any recurrence of AF. 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 He denies chest pain, shortness of breath, [...] Onset Coronary Artery Disease Father 57 smoker; shortage worker Emphysema Paternal Grandfather ALLERGIES: ALLERGIES Allergen Reactions [...] the prior echocardiographic exam performed on 03/17/21 ([facility]). Visualized aorta is borderline dilated. Cardiac Cath: 12/19/21 THE CORONARY ARTERIES: 1. THE LEFT MAIN: [...] sotalol DC'ed & amiodarone initiated, s/p DCCV, [id number] 1: hypertension), preserved LV systolic function (Echo [...] other AAD. CONTACT INFORMATION: Kareen Bruner APRN, [employer]', November 14, 2022 [facility] Cardiology Second Floor [address] [address] [place] [address] documented in this encounterKettering Health [facility] Center04-25-2023 Miscellaneous Notes* Telephone Encounter - Sidra Iyer [...] leave message on voicemail) documented in this encounterKettering Health [facility] Center04-20-2023 History of Present illness Narrative* Ole Marroquin Pss - 11/01/2022 12:52 PM EDT Pre OP labs documented in this encounterKettering Health Behavior[facility] Center04-20-2023 History of Present illness Narrative* Jesse Longo MD - 11/01/2022 8:57 AM EDT Images from the original note were not included. [facility] [place] SECTION OF REGIONAL CARDIOLOGY OUTPATIENT VISIT DATE November 01, 2022 OUTPATIENT VISIT TYPE ESTABLISHED PRIMARY CARE PHYSICIAN: Tae Martinez ([place]) [address] [place] [address] CHIEF COMPLAINT: Persistent afib , post ablation follow up HISTORY OF PRESENT ILLNESS: Mr. Kohli is a 62 year old male Mr. Kohli is a 61 year old male patient with early persistent afib refractory to DCCV x2 since 2020 and has associated lifestyle limiting symptoms. His [...] the prior echocardiographic exam performed on 03/17/21 ([facility]). Visualized aorta is borderline dilated. * * [...] is clinically indicated, cardiac catheterization is recommended. Paperback Machine Operator: ADRY Transcribe Date/Time: Nov 28 2021 10:09A Dictated [...] Onset Coronary Artery Disease Father 57 smoker; shortage worker Emphysema Paternal Grandfather ALLERGIES Allergen Reactions Penicillins [...] mouth once daily.^Disp: ^Rfl: documented in this encounterKettering Health [facility] Center03-01-2023 Miscellaneous Notes* Telephone Encounter - Sravani Rouse [...] on 08/22/2021 Hypertension (1) Vascular disease (prior AL, PAD, or aortic plaque) (1) Total Score: 2 Please provide recommendations for appropriate anticoagulation interruption. Patient may hold Eliquis for 2 days prior to his procedure per Dr. Kenny Garcia Faxing to Dr. Brown fax # [phone] with confirmation. documented in this encounterKettering Health [facility] Center01-07-2023 Miscellaneous Notes* Telephone Encounter - Carmen Johnson RN - 07/21/2022 7:06 AM EST Reason for call: Bruising at post op site Outcome: Patient was conferenced to Dr. Longo's Answering service to speak to cardiology grounds restoration specialist. Reason for Disposition [1] Scant bleeding (e.g., [...] of his hand and flat 2. ONSET: 399 3. SURGERY: cardiac ablation 07/18/22 4. DATE of SURGERY: see above 5. INCISION SITE: see above 6. REDNESS: none 7. PAIN: none 8. BLEEDING: not external 9. DRAINAGE: no 10. FEVER: no 11. OTHER SYMPTOMS: no; blood pressure during call was 139/97 Protocols used: Post-Op Symptoms and [id number], Post-Op Incision Symptoms and [id number] documented in this encounterKettering Health [facility] Center11-22-2022 Miscellaneous Notes* Telephone Encounter - Radha Christensen APRN.CNP - 06/05/2022 4:53 PM EST Was refilled by Dr. Longo yesterday. Radha Christensen APRN.CNP * Telephone Encounter - Gisell [...] - 1.4 mg/dL Final documented in this encounterKettering Health [facility] Center10-28-2022 History of Present illness Narrative* Carlos Garcia MD - 05/11/2022 9:00 AM EDT Images from the original note were not included. [facility] [place] [facility] Department of Cardiovascular Medicine SECTION OF REGIONAL CARDIOLOGY OUTPATIENT VISIT DATE May 11, 2022 OUTPATIENT VISIT TYPE ESTABLISHED PRIMARY CARE PHYSICIAN: Tae aMrtinez ([place]) [address] [place] [address] CHIEF COMPLAINT: Cardiovascular follow-up HISTORY OF PRESENT [...] RVSF/size, normal LA/RA size, 1+ TR, 1+ LA, mid ascending 3.9cm Echocardiogram 01/19/2021: LVEF 55-60%, [...] Carlos Garcia M.D. Cardiovascular Medicine Staff [facility] Mail Code [id number] [address] [place] [place] [address] documented in this encounterKettering [facility] Center10-27-2022 History of Present illness Narrative* Jesse Longo MD - 05/10/2022 8:57 AM EDT Images from the original note were not included. [facility] [place] SECTION OF REGIONAL CARDIOLOGY OUTPATIENT VISIT DATE May 10, 2022 OUTPATIENT VISIT TYPE ESTABLISHED PRIMARY CARE PHYSICIAN: Tae Martinez ([facility]) [address] [place] [id number] CHIEF COMPLAINT: afib HISTORY OF PRESENT ILLNESS: Mr. Kohil is a 61 year old male patient [...] the prior echocardiographic exam performed on 03/17/21 ([facility]). Visualized aorta is borderline dilated. * * * Final * * * Last EKG Result Conclusion ECG COMPLETE Collected: 12/19/2021 8:56 AM (Final result) Impression: Sinus bradycardia Nonspecific intraventricular conduction delay Borderline T abnormalities, inferior leads Abnormal ECG Confirmed by LIZ LANDEROS, [facility] ([id number]) on 12/23/2021 2:44:31 PM Last [...] is clinically indicated, cardiac catheterization is recommended. Paperback Machine Operator: ADRY Transcribe Date/Time: Nov 28 2021 10:09A Dictated [...] Onset Coronary Artery Disease Father 57 smoker; shortage worker Emphysema Paternal Grandfather ALLERGIES Allergen Reactions Penicillins [...] mouth once daily.^Disp: ^Rfl: documented in this encounterKettering [facility] Center09-12-2022 Miscellaneous Notes* Telephone Encounter - Johnna Victoria [...] accordingly. Nabila Mata RN documented in this encounterKettering Health Behavioral Medical Center08-23-2022 Instructions* Patient Instructions* Ahtiny Pop DO - 03/06/2022 10:11 AM EDT Continue Voltaren gel up to 3x/day for areas of pain Continue PT for knee arthritis Get prior auth for gel injections Follow up for viscosupplemenation injections for bilateral knees documented in this encounterKettering Health [facility] Center08-23-2022 History of Present illness Narrative* Javier Pop DO - 03/06/2022 9:58 AM EDTAssociated Order(s): Large Joint Arthro/Inj: bilateral knee joints Post-Procedure Diagnose(s): Primary osteoarthritis of both knees Images from the original note were not included. [facility] Date of Service: 03/06/2022 Patient: Caty Kohli Medical Record: [id number] Primary Care Physician: Tae Martinez DO Last [...] that time, per the recommendation of his photographer lithographic, the patient has cut back on naproxen [...] Onset Coronary Artery Disease Father 57 smoker; shortage worker Emphysema Paternal Grandfather Social History Social History [...] speckled DNA ANTIBODY W/CONFIRMATION <30 IU/mL <12 GINNING OPERATOR ANTIBODY <1.0 AI 0.3 SSA ANTIBODY <1.0 AI <0.2 SSB ANTIBODY <1.0 AI <0.2 STORM 1 ANTIBODY <1.0 AI <0.2 RIBOSOMAL GINNING OPERATOR <1.0 AI <0.2 SM ANTIBODY <1.0 AI [...] AM (Final result) Impression: IMPRESSION: Advanced osteoarthritis. Paperback Machine Operator: ADRY Transcribe Date/Time: Jul 11 2021 12:05P [...] knee joints Informed Consent Consent Obtained: Verbal [place] Protocol A moment to CARE was completed. [...] which included preparing to see the patient, [id number] patient care, completing clinical documentation, obtaining and/or [...] 2022 Time: 9:58 AM documented in this encounterKettering [facility] Center06-07-2022 Miscellaneous Notes* Telephone Encounter - Erendira Osborne MA - 12/19/2021 1:09 PM EDT Last office visit 11/09/21 Future appt scheduled 05/10/22 documented in this encounterKettering [facility] Center05-17-2022 Miscellaneous Notes* Telephone Encounter - Carlos Garcia [...] to repeat echocardiogram prior documented in this encounterKettering Health [facility] Center05-17-2022 History of Present illness Narrative* RADHA Lester [...] 28, 2021 9:38 AM documented in this encounterKettering Health Behavior[facility] Center05-17-2022 Nurse Note* Jaron Tomas RN - 11/28/2021 [...] 2021 TIME: 8:34 AM documented in this encounterKettering Health [facility] Center05-16-2022 Miscellaneous Notes* Telephone Encounter - Sravani Rouse [...] been in the 50's. documented in this encounterKettering Health Behavioral [facility] Center05-16-2022 Miscellaneous Notes* Telephone Encounter - Camron Morris [...] went to the pharmacy this morning to picker/puller medication. Pharmacy states they never received anything. Orders were sent on 11/09. Please have them resent to the pharmacy. Patient can be reached at [phone] documented in this encounterKettering Health [facility] Center04-28-2022 Miscellaneous Notes* Addendum Note - Carlos Garcia MD - 11/09/2021 11:19 AM EDT Addended by: CARLOS GARCIA on: 11/09/2021 11:19 AM Modules accepted: Orders documented in this encounterKettering Health Behavioral [facility] Center04-28-2022 History of Present illness Narrative* Jesse Longo MD - 11/09/2021 9:48 AM EDT Images from the original note were not included. [facility] [place] SECTION OF REGIONAL CARDIOLOGY OUTPATIENT VISIT DATE November 09, 2021 OUTPATIENT VISIT TYPE ESTABLISHED PRIMARY CARE PHYSICIAN: Tae Martinez ([facility]) [address] [place] [address] CHIEF COMPLAINT: AFib HISTORY OF PRESENT ILLNESS: [...] Onset Coronary Artery Disease Father 57 smoker; shortage worker Emphysema Paternal Grandfather ALLERGIES Allergen Reactions Penicillins [...] by mouth once daily. documented in this encounterKettering Health [facility] Center04-28-2022 History of Present illness Narrative* Carlos Garcia MD - 11/09/2021 8:00 AM EDT Images from the original note were not included. [facility] [place] [facility] Department of Cardiovascular Medicine SECTION OF REGIONAL CARDIOLOGY OUTPATIENT VISIT DATE November 09, 2021 OUTPATIENT VISIT TYPE ESTABLISHED PRIMARY CARE PHYSICIAN: Tae Martinez ([place]) [address] [place] [address] CHIEF COMPLAINT: Cardiovascular follow-up HISTORY OF PRESENT [...] INFORMATION: Carlos Garcia M.D. Cardiovascular Medicine Staff [facility] Mail Code AVW2-1 [address] [facility] [place] [address] documented in this encounterOhio [facility]* Diagnosis Under observation for suspected coronary artery disease- Primary Observation for suspected cardiovascular disease Other hyperlipidemia Essential hypertension Unspecified essential hypertension Persistent atrial fibrillation (HCC) Atrial fibrillation Pulmonary hypertension, unspecified (HCC) Abnormal nuclear stress test Other nonspecific abnormal cardiovascular system function study documented in this encounter [facility]* Diagnosis Persistent atrial fibrillation (HCC)- Primary Atrial fibrillation documented in this encounter [facility]* Diagnosis Coronary artery disease involving otoe-[place]ouria coronary artery of otoe-[place]ou[place] heart, unspecified whether angina present- Primary documented in this encounter [facility]* Diagnosis Under observation for suspected coronary artery disease Observation for suspected cardiovascular disease Abnormal nuclear stress test Other nonspecific abnormal cardiovascular system function study documented in this encounter [facility] note* Diagnosis Under observation for suspected coronary artery disease Observation for suspected cardiovascular disease Essential hypertension Unspecified essential hypertension Persistent atrial fibrillation (HCC) Atrial fibrillation Pulmonary hypertension, unspecified (HCC) Abnormal cardiovascular stress test Other nonspecific abnormal cardiovascular system function study documented in this encounter [facility] note* Diagnosis Primary osteoarthritis of both knees- Primary Primary localized osteoarthrosis, lower leg Positive KISHA (antinuclear antibody) Other and unspecified nonspecific immunological findings documented in this encounter [facility] note* Diagnosis Medication refill [Z76.0 (ICD-10-CM)]- Primary Issue of repeat prescriptions documented in this encounter [facility] note* Diagnosis Persistent atrial fibrillation (HCC)- Primary Atrial fibrillation documented in this encounter [facility] note* Diagnosis Coronary artery disease involving otoe-[place]ou[place] coronary artery of otoe-[place]ou[place] heart, unspecified whether angina present- Primary documented in this encounter [facility] note* Diagnosis Persistent atrial fibrillation (HCC)- Primary Atrial fibrillation documented in this encounter [facility] note* Diagnosis Persistent atrial fibrillation (HCC)- Primary Atrial fibrillation Atrial fibrillation, persistent (HCC) Atrial fibrillation documented in this encounter [facility] note* Diagnosis Paroxysmal atrial fibrillation (HCC)- Primary Atrial fibrillation Atrial fibrillation, persistent (HCC) Atrial fibrillation documented in this encounter [facility] note* Diagnosis Persistent atrial fibrillation (HCC)- Primary Atrial fibrillation Atrial fibrillation status post cardioversion (HCC) Atrial fibrillation documented in this encounter [facility] note* Diagnosis Persistent atrial fibrillation (HCC)- Primary Atrial fibrillation documented in this encounter [facility] note* Diagnosis Coronary artery disease involving otoe-missouria heart without angina pectoris, unspecified vessel or lesion type- Primary documented in this encounter [facility] noteNo [facility] [employer] Other Evaluation note* Diagnosis Persistent atrial fibrillation (HCC) [I48.19]- Primary Atrial fibrillation documented in this encounter [facility] note* Diagnosis Persistent atrial fibrillation (HCC)- Primary Atrial fibrillation S/P ablation of atrial fibrillation Other postprocedural status On continuous oral anticoagulation Long-term (current) use of anticoagulants documented in this encounter [facility] note* Diagnosis Persistent atrial fibrillation (HCC) Atrial fibrillation documented in this encounter [facility] note* Diagnosis Persistent atrial fibrillation (HCC)- Primary Atrial fibrillation [facility] Diagnosis Persistent atrial fibrillation (HCC)- Primary Atrial fibrillation documented in this encounter [facility] general Narrative - Reported* Type Description Date Medical History Primary hypertension Medical History Persistent atrial fibrillation Medical History Benign prostatic hyp erplasia with lower urinary tract symptoms Medical History Obstructive sleep apnea Medical History Subclinical hypothyroidism Medical History Elevated cholesterol Surgical History COLONOSCOPY 2017 Hospitalization History SEE SURGICAL HX [employer] Other Reason for referral (narrative)* Outpatient Procedure (Routine) - Authorized Specialty Diagnoses / Procedures [facility] [place] Diagnoses Under observation for suspected coronary artery disease Essential hypertension Persistent atrial fibrillation (HCC) Pulmonary hypertension, unspecified (HCC) Procedures ECHO ECHO TTHRC R-T 2D W/WOM-MODE COMPL SPEC&[place] [address] [place] [address] [facility] [place] [address] [place] [id number] Referral ID Status Reason Start Date Expiration Date Visits Requested Visits Authorized [id number] Authorized Auto-Generat ed Referral 11/09/2021 11/09/2022 1 1 * MRI/CT (Routine) - Open Specialty Diagnoses / Procedures [facility] To Contact CT IM[facility]ING Diagnoses Under observation for suspected coronary artery disease Abnormal nuclear stress test Procedures CTA CORONARY W IVCON CTA HRT CORNRY ART/BYPASS GRFTS CONTRST 3[place] [address] [place] [address] Ct Imaging Referral ID Status Reason Start Date Expiration Date V isits Requested Visits Authorized [id number] Open Auto-Generate d Referral 11/09/2021 12/09/2022 1 1 [facility] for referral (narrative)* Outpatient Procedure (Routine) - Authorized Specialty Diagnoses / Procedures [facility]erred To Contact [facility] [place] Diagnoses Persistent atrial fibrillation (HCC) Procedures ECG COMPLETE ECG ROUTINE ECG W/LEAST 12 LDS W/I&R Jesse Longo MD [address] [place] [address] [facility] [address] [address] Referral ID Status Reason Start Date Expiration Date Visits Requested Visits Authorized [id number] Authorized Auto-Generat ed Referral 11/09/2021 11/09/2022 1 1 T [facility] for referral (narrative)* Outpatient Procedure (Routine) - Pending Review Specialty Diagnoses / Procedures Referred By Contac t Referred To Contact [facility] [place] Diagnoses Persistent atrial fibrillation (HCC) Procedures ECG COMPLETE ECG ROUTINE ECG W/LEAST 12 ELISABETH W/I&R Jesse Longo MD [address] [place] [address] [facility] [address] [address] Referral ID Status Reason Start Date Expiration Date Visits Requested Visits Authorized [id number] Pending Review Auto-Generat ed Referral 05/10/2023 1 1 [facility] for referral (narrative)* Outpatient Procedure (Routine) - Authorized Specialty Diagnoses / Procedures Referred By Contac t Referred To Contact [facility] Diagnoses Persistent atrial fibrillation (HCC) Procedures ECG COMPLETE ECG ROUTINE ECG W/LEAST 12 ELISABETH W/I&R Jesse Longo MD [address] [place] [address] [facility] [address] [place] [id number] Referral ID Status Reason Start Date Expiration Date Visits Requested Visits Authorized [id number] Authorized Auto-Generat ed Referral 11/01/2022 11/01/2023 1 1 T [facility] for referral (narrative)* Outpatient Procedure (Routine) - Authorized Specialty Diagnoses / Procedures Referred By Contac t Referred To Contact [facility] [place] Diagnoses Persistent atrial fibrillation (HCC) Procedures ECG COMPLETE ECG ROUTINE ECG W/LEAST 12 LDS W/I&R Jesse Longo MD [address] [place] [address] [facility] [place] [address] [place] [address] Referral ID Status Reason Start Date Expiration Date Visits Requested Visits Authorized [id number] Authorized Auto-Generat ed Referral 01/17/2023 01/17/2024 1 1 [facility] for referral (narrative)* Outpatient Procedure (Routine) - Authorized Specialty Diagnoses / Procedures Referred By Contac t Referred To Contact [facility] Diagnoses Persistent atrial fibrillation (HCC) Procedures ECG COMPLETE ECG ROUTINE ECG W/LEAST 12 LDS W/I&R Layla Roger PA-C [address] [place] [address] [facility] [address] [place] [address] Referral ID Status Reason Start Date Expiration Date Visits Requested Visits Authorized [id number] Authorized Auto-Generat ed Referral 11/08/2023 11/07/2024 1 1 * Outpatient Procedure (Routine) - Pending Review Specialty Diagnoses / Procedures Referred By Contac t Referred To Contact [facility] Diagnoses Persistent atrial fibrillation (HCC) Procedures ECG COMPLETE ECG ROUTINE ECG W/LEAST 12 LDS W/I&R Layla Roger PA-C [address] [place] [address] [facility] [place] [address] [place] [id number] Referral ID Status Reason Start Date Expiration Date Visits Requested Visits Authorized [id number] Pending Review Auto-Generat ed Referral 11/08/2023 11/07/2024 1 1 [facility] for referral (narrative)* Outpatient Procedure (Routine) - Pending Review Specialty Diagnoses / Procedures Referred By Contac t Referred To Contact [facility] [place] Diagnoses Persistent atrial fibrillation (HCC) Procedures ECG COMPLETE ECG ROUTINE ECG W/LEAST 12 LDS W/[place] [address] [place] [address] [address] Referral ID Status Reason Start Date Expiration Date Visits Requested Visits Authorized [id number] Pending Review Auto-Generat ed Referral 01/09/2024 01/08/2025 1 1 [facility] for visit Narrative* Outpatient Procedure (Routine) - Closed Specialty Diagnoses / Procedures Referred By Contrashad acharya Referred To Contact [facility] Diagnoses Under observation for suspected coronary artery disease Essential hypertension Persistent atrial fibrillation (HCC) Pulmonary hypertension, unspecified (HCC) Procedures ECHO ECHO TTHRC R-T 2D W/WOM-MODE COMPL SPEC&[place] [address] [place] [address] [address] Referral ID Status Reason Start Date Expiration Date V isits Requested Visits Authorized [id number] Closed Auto-Generate d Referral 11/09/2021 11/09/2022 1 1 [facility] Summary Purpose Family History No Family History Records FoundNo Family History Records FoundNo Family History Records FoundNo Family History Records FoundNo Family History Records FoundNo Family History Records Found Advance Directives Documents on File Type Date Recorded Patient Stull Hewer Expl anation Advance Directive(s) 08/15/2021 12:02 PM Advance Directive(s) 03/17/2021 12:00 PM Advance Directive(s) 03/08/2021 2:26 PM Documents on File Type Date Recorded Patient Stull Hewer Expl anation Advance Directive(s) 08/15/2021 12:02 PM Advance Directive(s) 03/17/2021 12:00 PM Advance Directive(s) 03/08/2021 2:26 PM Documents on File Type Date Recorded Patient Stull Hewer Expl anation Advance Directive(s) 12/05/2021 10:50 AM Advance Directive(s) 08/15/2021 12:02 PM Advance Directive(s) 03/17/2021 12:00 PM Advance Directive(s) 03/08/2021 2:26 PM Documents on File Type Date Recorded Patient Stull Hewer Expl anation Advance Directive(s) 12/05/2021 10:50 AM Advance Directive(s) 08/15/2021 12:02 PM Advance Directive(s) 03/17/2021 12:00 PM Advance Directive(s) 03/08/2021 2:26 PM Reason for Referral Specialty Diagnoses / Procedures Referred By Kit t Referred To Contact CT IMAGING Diagnoses Under observation for suspected coronary artery disease Abnormal nuclear stress test Procedures CTA CORONARY W IVCON CTA HRT CORNRY ART/BYPASS GRFTS CONTRST 3[place] [address] [place] [address] Ct Imaging Referral ID Status Reason Start Date Expiration Date V isits Requested Visits Authorized [id number] Closed Auto-Generate d Referral 11/28/2021 12/29/2021 1 [...] section and content) DATE CREATED AUTHOR 02/02/2020 [facility] DATE CREATED AUTHOR AUTHOR'S ORGANIZ ATION 08/04/2021 [facility] DATE CREATED AUTHOR AUTHOR'S ORGANIZ ATION 03/23/2022 [facility] DATE CREATED AUTHOR AUTHOR'S ORGANIZ ATION 10/12/2023 [facility] DATE CREATED AUTHOR AUTHOR'S ORGANIZ ATION 12/03/2023 [facility] DATE CREATED AUTHOR AUTHOR'S ORGANIZ ATION 01/16/2024 [facility] Source Comments (unrecognize d section and content) In the event this informatio n is protected by the Federal Confidentiality of Alcohol and Drug Abuse Patient Records regulations: The Federal rules restrict any use of the information to criminally investigate or prosecute any alcohol or drug abuse patient.[facility] the event this information is protected by the Federal Confidentiality of Alcohol and Drug Abuse Patient Records regulations: The Federal rules restrict any use of the information to criminally investigate or prosecute any alcohol or drug abuse patient.[facility] CenterIn the event this information is protected by the Federal Confidentiality of Alcohol and Drug Abuse Patient Records regulations: The Federal rules restrict any use of the information to criminally investigate or prosecute any alcohol or drug abuse patient.[facility] CenterIn the event this information is protected by the Federal Confidentiality of Alcohol and Drug Abuse Patient Records regulations: The Federal rules restrict any use of the information to criminally investigate or prosecute any alcohol or drug abuse patient.[facility] CenterIn the event this information is protected by the Federal Confidentiality of Alcohol and Drug Abuse Patient Records regulations: The Federal rules restrict any use of the information to criminally investigate or prosecute any alcohol or drug abuse patient.[facility] CenterIn the event this information is protected by the Federal Confidentiality of Alcohol and Drug Abuse Patient Records regulations: The Federal rules restrict any use of the information to criminally investigate or prosecute any alcohol or drug abuse patient.[facility] CenterIn the event this information is protected by the Federal Confidentiality of Alcohol and Drug Abuse Patient Records regulations: The Federal rules restrict any use of the information to criminally investigate or prosecute any alcohol or drug abuse patient.[facility] CenterIn the event this information is protected by the Federal Confidentiality of Alcohol and Drug Abuse Patient Records regulations: The Federal rules restrict any use of the information to criminally investigate or prosecute any alcohol or drug abuse patient.[facility] CenterIn the event this information is protected by the Federal Confidentiality of Alcohol and Drug Abuse Patient Records regulations: The Federal rules restrict any use of the information to criminally investigate or prosecute any alcohol or drug abuse patient.[facility] CenterIn the event this information is protected by the Federal Confidentiality of Alcohol and Drug Abuse Patient Records regulations: The Federal rules restrict any use of the information to criminally investigate or prosecute any alcohol or drug abuse patient.[facility] CenterIn the event this information is protected by the Federal Confidentiality of Alcohol and Drug Abuse Patient Records regulations: The Federal rules restrict any use of the information to criminally investigate or prosecute any alcohol or drug abuse patient.[facility] CenterIn the event this information is protected by the Federal Confidentiality of Alcohol and Drug Abuse Patient Records regulations: The Federal rules restrict any use of the information to criminally investigate or prosecute any alcohol or drug abuse patient.[facility] CenterIn the event this information is protected by the Federal Confidentiality of Alcohol and Drug Abuse Patient Records regulations: The Federal rules restrict any use of the information to criminally investigate or prosecute any alcohol or drug abuse patient.[facility] CenterIn the event this information is protected by the Federal Confidentiality of Alcohol and Drug Abuse Patient Records regulations: The Federal rules restrict any use of the information to criminally investigate or prosecute any alcohol or drug abuse patient.[facility] CenterIn the event this information is protected by the Federal Confidentiality of Alcohol and Drug Abuse Patient Records regulations: The Federal rules restrict any use of the information to criminally investigate or prosecute any alcohol or drug abuse patient.[facility] CenterIn the event this information is protected by the Federal Confidentiality of Alcohol and Drug Abuse Patient Records regulations: The Federal rules restrict any use of the information to criminally investigate or prosecute any alcohol or drug abuse patient.[facility] CenterIn the event this information is protected by the Federal Confidentiality of Alcohol and Drug Abuse Patient Records regulations: The Federal rules restrict any use of the information to criminally investigate or prosecute any alcohol or drug abuse patient.[facility] CenterIn the event this information is protected by the Federal Confidentiality of Alcohol and Drug Abuse Patient Records regulations: The Federal rules restrict any use of the information to criminally investigate or prosecute any alcohol or drug abuse patient.[facility] CenterIn the event this information is protected by the Federal Confidentiality of Alcohol and Drug Abuse Patient Records regulations: The Federal rules restrict any use of the information to criminally investigate or prosecute any alcohol or drug abuse patient.[facility] CenterIn the event this information is protected by the Federal Confidentiality of Alcohol and Drug Abuse Patient Records regulations: The Federal rules restrict any use of the information to criminally investigate or prosecute any alcohol or drug abuse patient.[facility] CenterIn the event this information is protected by the Federal Confidentiality of Alcohol and Drug Abuse Patient Records regulations: The Federal rules restrict any use of the information to criminally investigate or prosecute any alcohol or drug abuse patient.[facility] CenterIn the event this information is protected by the Federal Confidentiality of Alcohol and Drug Abuse Patient Records regulations: The Federal rules restrict any use of the information to criminally investigate or prosecute any alcohol or drug abuse patient.[facility] CenterIn the event this information is protected by the Federal Confidentiality of Alcohol and Drug Abuse Patient Records regulations: The Federal rules restrict any use of the information to criminally investigate or prosecute any alcohol or drug abuse patient.[facility] CenterIn the event this information is protected by the Federal Confidentiality of Alcohol and Drug Abuse Patient Records regulations: The Federal rules restrict any use of the information to criminally investigate or prosecute any alcohol or drug abuse patient.[facility] the event this information is protected by the Federal Confidentiality of Alcohol and Drug Abuse Patient Records regulations: The Federal rules restrict any use of the information to criminally investigate or prosecute any alcohol or drug abuse patient.[facility] CenterIn the event this information is protected by the Federal Confidentiality of Alcohol and Drug Abuse Patient Records regulations: The Federal rules restrict any use of the information to criminally investigate or prosecute any alcohol or drug abuse patient.[facility] CenterIn the event this information is protected by the Federal Confidentiality of Alcohol and Drug Abuse Patient Records regulations: The Federal rules restrict any use of the information to criminally investigate or prosecute any alcohol or drug abuse patient.[facility] CenterIn the event this information is protected by the Federal Confidentiality of Alcohol and Drug Abuse Patient Records regulations: The Federal rules restrict any use of the information to criminally investigate or prosecute any alcohol or drug abuse patient.[facility] CenterIn the event this information is protected by the Federal Confidentiality of Alcohol and Drug Abuse Patient Records regulations: The Federal rules restrict any use of the information to criminally investigate or prosecute any alcohol or drug abuse patient.[facility] CenterIn the event this information is protected by the Federal Confidentiality of Alcohol and Drug Abuse Patient Records regulations: The Federal rules restrict any use of the information to criminally investigate or prosecute any alcohol or drug abuse patient.[facility] CenterIn the event this information is protected by the Federal Confidentiality of Alcohol and Drug Abuse Patient Records regulations: The Federal rules restrict any use of the information to criminally investigate or prosecute any alcohol or drug abuse patient.[facility] CenterIn the event this information is protected by the Federal Confidentiality of Alcohol and Drug Abuse Patient Records regulations: The Federal rules restrict any use of the information to criminally investigate or prosecute any alcohol or drug abuse patient.[facility] CenterIn the event this information is protected by the Federal Confidentiality of Alcohol and Drug Abuse Patient Records regulations: The Federal rules restrict any use of the information to criminally investigate or prosecute any alcohol or drug abuse patient.[facility] CenterIn the event this information is protected by the Federal Confidentiality of Alcohol and Drug Abuse Patient Records regulations: The Federal rules restrict any use of the information to criminally investigate or prosecute any alcohol or drug abuse patient.[facility] CenterIn the event this information is protected by the Federal Confidentiality of Alcohol and Drug Abuse Patient Records regulations: The Federal rules restrict any use of the information to criminally investigate or prosecute any alcohol or drug abuse patient.[facility] CenterIn the event this information is protected by the Federal Confidentiality of Alcohol and Drug Abuse Patient Records regulations: The Federal rules restrict any use of the information to criminally investigate or prosecute any alcohol or drug abuse patient.[facility] CenterIn the event this information is protected by the Federal Confidentiality of Alcohol and Drug Abuse Patient Records regulations: The Federal rules restrict any use of the information to criminally investigate or prosecute any alcohol or drug abuse patient.[facility] Reason for Visit (unrecogniz ed section and content) Reason Comments Follow Up Reason Comments Follow Up Reason Comments Orders Reason Comments Results Orders Specialty Diagnoses / Procedures Referred By Kit acharya Referred To Contact CT IMAGING Diagnoses Under observation for suspected coronary artery disease Abnormal nuclear stress test Procedures CTA CORONARY W IVCON CTA HRT CORNRY ART/BYPASS GRFTS CONTR[place] 3[place] [address] [place] [address] Ct Imaging Referral ID Status Reason Start Date Expiration Date V isits Requested Visits Authorized [id number] Closed Auto-Generate d Referral 11/28/2021 12/29/2021 1 [...] Visit Specialty Diagnoses / Procedures Referred By Kit acharya Ref[facility] Diagnoses Persistent atrial fibrillation (HCC) Procedures ECG COMPLETE ECG ROUTINE ECG W/LEAST 12 LDS W/I&R Layla Roger PA-C [address] [place] [address] [facility] [place] [address] [place] [address] Referral ID Status Reason Start Date Expiration Date V isits Requested Visits Authorized [id number] Closed Auto-Generate d Referral 11/08/2023 11/07/2024 1 1 Reason Comments Patient is Back in Af[facility] Care Teams (unrecognized sec tion and content) [employer] Slaker Relationship Specialty Start Date End Date Juan Tae De Leon, DO [address] [place] [address] PCP - General Internal Medicine 03/08/21 [employer]ime Slaker Relationship Specialty Start Date End Date Tae Martinez, DO [address] [place] [address] PCP - General Internal Medicine 03/08/21 [employer]ime Slaker Relationship Specialty Start Date End Date Tae Martinez Haley, DO [address] [place] [address] PCP - General Internal Medicine 03/08/21 Milk Of Lime Slaker Relationship Specialty Start Date End Date Juan Tae De Leon, DO [address] [place] [address] PCP - General Internal Medicine 03/08/21 Milk Of Lime Slaker Relationship Specialty Start Date End Date Tae Martinez, DO [address] [place] [address] PCP - General Internal Medicine 03/08/21 Milk Of Lime Slaker Relationship Specialty Start Date End Date Tae Martinez, DO [address] [place] [address] PCP - General Internal Medicine 03/08/21 Milk Of Lime Slaker Relationship Specialty Start Date End Date Tae Martinez, DO [address] [facility] [place] [address] PCP - General Internal Medicine 03/08/21 Milk Of Lime Slaker Relationship Specialty Start Date End Date Tae Martinez, DO [address] [facility] [place] [address] PCP - General Internal Medicine 03/08/21 Milk Of Lime Slaker Relationship Specialty Start Date End Date Tae Martinez, DO [address] [facility] [place] [address] PCP - General Internal Medicine 03/08/21 Milk Of Lime Slaker Relationship Specialty Start Date End Date Tae Martinez, DO [address] [facility] [place] [address] PCP - General Internal Medicine 03/08/21 Milk Of Lime Slaker Relationship Specialty Start Date End Date Tae Martinez, DO [address] [facility] [place] [address] PCP - General Internal Medicine 03/08/21 Milk Of Lime Slaker Relationship Specialty Start Date End Date Tae Martinez, DO [address] [facility] [place] [address] PCP - General Internal Medicine 03/08/21 Milk Of Lime Slaker Relationship Specialty Start Date End Date Tae Martinez, DO [address] [facility] [place] [address] PCP - General Internal Medicine 03/08/21 Milk Of Lime Slaker Relationship Specialty Start Date End Date Tae Martinez, DO [address] [facility] [place] [address] PCP - General Internal Medicine 03/08/21 Milk Of Lime Slaker Relationship Specialty Start Date End Date Tae Martinez Haley, DO [address] [facility] [place] [address] PCP - General Internal Medicine 03/08/21 Milk Of Lime Slaker Relationship Specialty Start Date End Date Tae Martinez DO [address] [facility] [place] [address] PCP - General Internal Medicine 03/08/21 Milk Of Lime Slaker Relationship Specialty Start Date End Date Tae Martinez DO [address] [facility] [place] [address] PCP - General Internal Medicine 03/08/21 Milk Of Lime Slaker Relationship Specialty Start Date End Date Tae Martinez DO [address] [facility] [place] [address] PCP - General Internal Medicine 03/08/21 Milk Of Lime Slaker Relationship Specialty Start Date End Date Tae Martinez DO [address] [facility] [place] [address] PCP - General Internal Medicine 03/08/21 Milk Of Lime Slaker Relationship Specialty Start Date End Date Tae Martinez DO [address] [facility] [place] [address] PCP - General Internal Medicine 03/08/21 Milk Of Lime Slaker Relationship Specialty Start Date End Date Tae Martinez DO [address] [facility] [place] [address] PCP - General Internal Medicine 03/08/21 Milk Of Lime Slaker Relationship Specialty Start Date End Date Tae Martinez DO [address] [facility] [place] [address] PCP - General Internal Medicine 03/08/21 Milk Of Lime Slaker Relationship Specialty Start Date End Date Tae Martinez DO [address] [facility] [place] [address] PCP - General Internal Medicine 03/08/21 Milk Of Lime Slaker Relationship Specialty Start Date End Date Tae Martinez [address] [place] [id number] PCP - General Internal Medicine 03/08/21 Milk Of Lime Slaker Relationship Specialty Start Date End Date Tae MartinezDO [facility] [place] [address] PCP - General Internal Medicine 03/08/21 FOR [...] BE BASED ON THE PRIMARY CLINICAL RECORDS. [facility]. provides no warranty or guarantee of the accuracy or completeness of information in this document.
[2024-02-29 09:36] LABS: Basophils Absolute Auto 0.1 10^3/uL (0.0-0.1); Basophils Percent Auto 0.7 % (0.2-2.0); Eosinophils Absolute Auto 0.3 10^3/uL (0.0-0.7); Eosinophils Percent Auto 4.3 % (0.9-7.0); Hematocrit 43.7 % (42.0-54.0); Hemoglobin 14.5 g/dL (14.0-18.0); Immature Granulocytes Abs Auto 0.01 10^3/uL (0.00-0.03); Immature Granulocytes Pct Auto 0.1 % (0.0-0.5); Lymphocytes Absolute Auto 2.2 10^3/uL (1.2-3.8); Lymphocytes Percent Auto 30.7 % (20.5-60.0); Mean Corpuscular HGB Conc 33.2 g/dL (29.9-35.2); Mean Corpuscular Hemoglobin 30.1 pg (25.9-34.0); Mean Corpuscular Volume 90.7 fL (80.0-94.0); Mean Platelet Volume 10.2 fL (9.5-13.5); Monocytes Absolute Auto 0.5 10^3/uL (0.3-0.8); Monocytes Percent Auto 7.7 % (1.7-12.0); Neutrophils Percent Auto 56.5 % (43.0-75.0); Platelet Count 236 10^3/uL (150-450); Red Blood Count 4.82 10^6/uL (4.70-6.10); Red Cell Distribution Width 12.9 % (11.0-15.0)
[2024-02-29 10:16] LABS: Percent Iron Saturation 23.9 %
== END 2024-02-29 09:10 | disposition home or self-care (01) ==
LOC: LAB 09:11
PROVIDERS: PCP Internal Medicine; Visit Provider Internal Medicine
DX: D64.9 Anemia, unspecified (principal)
CPT/HCPCS: 36415; 82607; 82728; 82746; 83540; 83550; 85025

== ENCOUNTER 2024-12-03 09:34 | Outpatient (OUT) | payer OTHER, SELFPAY ==
--- OUTSIDE RECORDS SUMMARY | 2024-12-03 09:40 | XMS_ITS | Encounter Summary ---
Author Organization [facility] Address [address] [place] [address] Care Team Providers Care Chair Spring Assembler Name Role Phone Tae Talamantes Primary Care Provider [phone] Source Comments In the event this information is protected by the Federal Confidentiality of Alcohol and Drug AbusePatient Records regulations: The Federal rules restrict any use of the information to criminally investigate or prosecute any alcohol or drug abuse patient.[facility] Encounter Details Date Type Department Care Team (Late st Contact Info) Description 11/29/2021 Patient Msg Cardiology [address] [place] [address] Provider, Ccf Cardiology procedure scheduling Social History Tobacco Use Types Packs/Day Years Used Date Smoking Tobacco: Never Smokeless Tobacco: Never Alcohol Use Standard Drinks/Week Comments Yes 0 (1 standard drink = 0.6 oz pur e alcohol) rare PHQ-2 Answer Date Recorded PHQ-2 score 0 09/03/2021 Area Deprivation Index Answer Date Scott rded National Score (1-100), lower number is lower ri sk Not on file 06/21/2020 State Score (1-10), lower number is lower risk N ot on file 06/21/2020 Data from: https://www.neighborhoodatlas.medicine.[facility]/. Last address used for calculation Not on file 06/21/2020 Sex and Gender Information Value Date Recorded Sex Assigned at Male 07/14/2021 9:09 PM EST Legal Sex Male 3:16 PM EDT Gender Identity Male 07/14/2021 9:09 PM EST Sexual Orientation Straight 07/14/2021 9: 09 PM EST COVID-19 Exposure Response Date Recorded In the last 10 days, have yo u been in contact with someone who was confirmed or suspected to have Coronavirus/COVID-19? No / Unsure 11/28/2021 7:58 AM EDT documented as of this encounter Plan of Treatment Upcoming Encounters Date Type Department Care Team (Late st Contact Info) Description 04/05/2025 9:30 AM EDT Office Visit Cardiology [address] [place] [address] [place] [address] [place], [place] [id number] Follow Up Per Pt documented as of this encounter Visit Diagnoses Not on filedocumented in this encounter Care Teams Chair Spring Assembler Relationship Specialty Start Date End Date Tae Talamantes DO [address] [place] [address] PCP - General Internal Medicine 03/08/21 documented as of this encounter
--- OUTSIDE RECORDS SUMMARY | 2024-12-03 09:40 | XMS_ITS | Encounter Summary ---
Author Organization [facility] Address [address] [place] [address] Care Team Providers Care Career Services Manager Name Role Phone Tae Talamantes DO Primary Care Provider [phone] Source Comments In the event this information is protected by the Federal Confidentiality of Alcohol and Drug AbusePatient Records regulations: The Federal rules restrict any use of the information to criminally investigate or prosecute any alcohol or drug abuse patient.[facility] Encounter Details Date Type Department Care Team (Late st Contact Info) Description 08/01/2021 Get Medical Advice Cardiology [address] [place] [address] [place] [address] [place] [address] EKG Social History Tobacco Use Types Packs/Day Years Used Date Smoking Tobacco: Never Smokeless Tobacco: Never Alcohol Use Standard Drinks/Week Comments Yes 0 (1 standard drink = 0.6 oz pur e alcohol) rare PHQ-2 Answer Date Recorded PHQ-2 score 1 07/08/2021 Area Deprivation Index Answer Date Scott rded National Score (1-100), lower number is lower ri sk Not on file 06/21/2020 State Score (1-10), lower number is lower risk N ot on file 06/21/2020 Data from: https://www.neighborhoodatlas.medicine.[facility].edu/. Last address used for calculation Not on file 06/21/2020 Sex and Gender Information Value Date Recorded Sex Assigned at Male 07/14/2021 9:09 PM EST Legal Sex Male 3:16 PM EDT Gender Identity Male 07/14/2021 9:09 PM EST Sexual Orientation Straight 07/14/2021 9: 09 PM EST COVID-19 Exposure Response Date Recorded In the last month, have you been in contact with someone who was confirmed or suspected to have Coronavirus / COVID-19? No / Unsure 07/28/2021 2:45 PM EST documented as of this encounter Plan of Treatment Upcoming Encounters Date Type Department Care Team (Late st Contact Info) Description 04/05/2025 9:30 AM EDT Office Visit Cardiology [address] [place] [address] [place] [address] [place] [address] Follow Up Per Pt documented as of this encounter Visit Diagnoses Not on filedocumented in this encounter Additional Health Concerns Infection Onset Date Last Indicated Resolved Time COVID-19 Rule-Out 08/15/2021 08/14/2021 09/04/2021 8:51 PM EST documented as of this encounter Care Teams Career Services Manager Relationship Specialty Start Date End Date Tae Talamantes DO [address] [place] [address] PCP - General Internal Medicine 03/08/21 documented as of this encounter
--- OUTSIDE RECORDS SUMMARY | 2024-12-03 09:40 | XMS_ITS | Encounter Summary ---
Author Organization [facility] Address [address] [place] [address] Care Team Providers Care Information Developer Name Role Phone Tae Talamantes DO Primary Care Provider [phone] Source Comments In the event this information is protected by the Federal Confidentiality of Alcohol and Drug AbusePatient Records regulations: The Federal rules restrict any use of the information to criminally investigate or prosecute any alcohol or drug abuse patient.[facility] Encounter Details Date Type Department Care Team (Latest Contact Info) Description 12/01/2021 Patient Msg Cardiology [address] [place] [address] Provider, Eleazar 12/19/2021 Heart catheterization instructions Social History Tobacco Use Types Packs/Day Years [...] N ot on file 06/21/2020 Data from: https://www.neighborhoodatlas.[facility]/. Last address used for calculation Not [...] 04/05/2025 9:30 AM EDT Office Visit Cardiology [address] [place] [address] [place] [address] [place], [place] [phone] Follow Up Per Pt documented as of this encounter Visit Diagnoses Not on filedocumented in this encounter Care Teams Information Developer Relationship Specialty Start Date End Date Tae Talamantes DO [address] [place] [address] PCP - General Internal Medicine 03/08/21 documented as of this encounter
--- OUTSIDE RECORDS SUMMARY | 2024-12-03 09:40 | XMS_ITS | Clinical Summary ---
Author Organization [facility] Address [address] [place] [address] Care Team Providers Care Community Chest Officer Name Role Phone Unavailable Primary Care Provider Unavailabl e Social History Tobacco Use Types Packs/Day Years Used Date Smoking Tobacco: Never Assessed [place] Safety & Environment Answer Date Rec orded Fear of Current or Ex-Partner Not on file Emotionally Abused Not on file 09/05/2023 Physically Abused Not on file 09/05/2023 Sexually Abused Not on file 09/05/2023 Physically or Sexually Abused Not on file Sex and Gender Information Value Date Recorded Sex Assigned at Not on file Gender Identity Not on file Sexual Orientation Not on file Plan of Treatment Not on file
--- OUTSIDE RECORDS SUMMARY | 2024-12-03 09:40 | XMS_ITS | Referral Summary ---
Author Organization [facility] Address [address] [place] [address] Care Team Providers Care Photo Finish Photographer Name Role Phone Unavailable Primary Care Provider [...]
--- OUTSIDE RECORDS SUMMARY | 2024-12-03 09:40 | XMS_ITS | Encounter Summary ---
Author Organization [facility] Address [address] [place] [address] Care Team Providers Care Earth Science Technical Officer Name Role Phone Tae Talamantes DO Primary Care Provider [phone] Source Comments In the event this information is protected by the Federal Confidentiality of Alcohol and Drug AbusePatient Records regulations: The Federal rules restrict any use of the information to criminally investigate or prosecute any alcohol or drug abuse patient.[facility] Encounter Details Date Type Department Care Team (Late st Contact Info) Description 10/15/2024 Patient Msg Cardiology [address] [place] [address] Provider, Ccf Appointment Scheduling Social History Tobacco Use Types Packs/Day Years Used Date Smoking Tobacco: Never Smokeless Tobacco: Never Alcohol Use Standard Drinks/Week Comments Not Currently 0 (1 standard drink = 0.6 oz pur e alcohol) rare PHQ-2 Answer Date Recorded PHQ-2 score 0 09/03/2021 Area Deprivation Index Answer Date Scott rded National Score (1-100), lower number is lower ri sk 61 11/14/2022 State Score (1-10), lower number is lower risk 4 11/14/2022 Data from: https://www.neighborhoodatlas.medicine.[facility].edu/. Last address used for calculation [address] 11/14/2022 Sex and Gender Information Value Date Recorded Sex Assigned at Male 07/14/2021 9:09 PM EST Legal Sex Male 3:16 PM EDT Gender Identity Male 07/14/2021 9:09 PM EST Sexual Orientation Straight 07/14/2021 9: 09 PM EST documented as of this encounter Plan of Treatment Upcoming Encounters Date Type Department Care Team (Late st Contact Info) Description 04/05/2025 9:30 AM EDT Office Visit Cardiology [address] [place] [address] [place] [address] [place], [place] [id number] Follow Up Per Pt documented as of this encounter Goals Goal Patient Goal Type Associated Problems Recent Progress Patient-Stated? Author Blood Pressure < 130/80 Blood Pressure 112/69( 025 8:25 AM EDT) No Layla Roger PA-C documented as of this encounter Visit Diagnoses Not on filedocumented in this encounter Care Teams Earth Science Technical Officer Relationship Specialty Start Date End Date Tae Talamantes DO [address] [place] [address] PCP - General Internal Medicine 03/08/21 documented as of this encounter
--- OUTSIDE RECORDS SUMMARY | 2024-12-03 09:40 | XMS_ITS | Encounter Summary ---
Author Organization [facility] Address [address] [place] [address] Care Team Providers Care Consumer Relations Specialist Name Role Phone Tae Talamantes DO Primary Care Provider [phone] Source Comments In the event this information is protected by the Federal Confidentiality of Alcohol and Drug AbusePatient Records regulations: The Federal rules restrict any use of the information to criminally investigate or prosecute any alcohol or drug abuse patient.[facility] Reason for Visit * Reason Comments Refill Request Encounter Details Date Type Department Care Team (Late st Contact Info) Description 11/27/2024 Refill Cardiology [address] [facility] [place] [address] [place] [address] [place], [place] [phone] Refill Request Social History Tobacco Use Types Packs/Day Years [...] is lower risk 4 11/14/2022 Data from: https://www.neighborhoodatlas.medicine.[facility]/. Last address used for calculation [address] 11/14/2022 Sex and Gender Information Value Date Recorded Sex Assigned at Male 07/14/2021 9:09 PM EST Legal Sex Male 3:16 PM EDT Gender Identity Male 07/14/2021 9:09 PM EST Sexual Orientation Straight 07/14/2021 9: 09 PM EST documented as of this encounter Miscellaneous Notes * Telephone Encounter - Shane Evangelista APRN.CNP - 11/27/2024 8:38 AM EDT The following approved medication requests have been transmitted electronically. Requested Prescriptions Signed Prescriptions Disp Refills metoprolol succinate ER (TOPROL XL) 25 mg 24 hr tablet 45 tablet 1 Sig: Take 1/2 tablet by mouth daily at bedtime. Authorizing Provider: JESSE HEMPHILL Ordering User: SHANE EVANGELISTA APRN.TRANSPORT ENGINEER * Telephone Encounter - Scotty Vallejo RN - 11/27/2024 6:50 AM EDT Received request for refill of the following medications: Requested Prescriptions Pending Prescriptions Disp Refills metoprolol succinate ER (TOPROL XL) 25 mg 24 hr tablet [Pharmacy Med Name: Metoprolol Succinate 25mg Extended-Release Tablet] 45 tablet 2 Sig: Take 1/2 tablet by mouth daily at bedtime. Patient requested a 90 day refill. Pharmacy verified and updated accordingly. Patient was last seen in cardiology office: 10/15/24. Upcoming appointment scheduled: 04/05/25. Labs: Hemoglobin (g/dL) Date Value 11/25/2023 14.7 08/14/2021 14.1 Hematocrit (%) Date Value 11/25/2023 44.2 08/14/2021 41.9 WBC (k/uL) Date Value 11/25/2023 8.76 08/14/2021 9.89 Platelet Count (k/uL) Date Value 11/25/2023 223 08/14/2021 258 Creatinine Date Value Ref Range Status 11/25/2023 0.82 0.73 - 1.22 mg/dL Final 10/11/2023 0.71 (L) 0.73 - 1.22 mg/dL Final documented in this encounter Plan of Treatment Upcoming Encounters Date Type Department Care Team (Late st Contact Info) Description 04/05/2025 9:30 AM EDT Office Visit Cardiology [address] [place] [address] [place] [address] [place] [address] Follow Up Per Pt documented as of this encounter Goals Goal Patient Goal Type Associated Problems Recent Progress Patient-Stated? Author Blood Pressure < 130/80 Blood Pressure 112/69( 025 8:25 AM EDT) No Layla Roger PA-C documented as of this encounter Visit Diagnoses Not on filedocumented in this encounter Care Teams Consumer Relations Specialist Relationship Specialty Start Date End Date Tae Talamantes DO [address] [place] [address] PCP - General Internal Medicine 03/08/21 documented as of this encounter
--- OUTSIDE RECORDS SUMMARY | 2024-12-03 09:40 | XMS_ITS | Encounter Summary ---
Author Organization [facility] Address [address] [place] [address] Care Team Providers Care Supervisor Phosphatic Fertilizer Name Role Phone Tae Talamantes DO Primary Care Provider [phone] Source Comments In the event this information is protected by the Federal Confidentiality of Alcohol and Drug AbusePatient Records regulations: The Federal rules restrict any use of the information to criminally investigate or prosecute any alcohol or drug abuse patient.[facility] Encounter Details Date Type Department Care Team (Late st Contact Info) Description 10/04/2023 [place] [address] Provider, f Medicare Coverage of Physical Exams Social History Tobacco Use Types Packs/Day Years [...] is lower risk 4 11/14/2022 Data from: https://www.neighborhoodatlas.medicine.[facility].edu/. Last address used for calculation [place] 11/14/2022 Sex and Gender Information Value Date [...] 04/05/2025 9:30 AM EDT Office Visit Cardiology [address] [place] [address] [place] [address] [place], [place] [address] Follow Up Per Pt documented as of this encounter Visit Diagnoses Not on filedocumented in this encounter Care Teams Supervisor Phosphatic Fertilizer Relationship Specialty Start Date End Date Tae Talamantes DO [address] [place] [address] PCP - General Internal Medicine 03/08/21 documented as of this encounter
--- OUTSIDE RECORDS SUMMARY | 2024-12-03 09:40 | XMS_ITS | Encounter Summary ---
Author Organization [facility] Address [address] [place] [address] Care Team Providers Care Hotel Maintenance Engineer Name Role Phone Tae Talamantes Primary Care Provider [phone] Source Comments In the event this information is protected by the Federal Confidentiality of Alcohol and Drug AbusePatient Records regulations: The Federal rules restrict any use of the information to criminally investigate or prosecute any alcohol or drug abuse patient.[facility] Encounter Details Date Type Department Care Team (Late st Contact Info) Description 11/22/2023 Patient Msg Cardiology [address] [facility] [place] [place] [address] Provider, Ccf CARDIOVERSION Social History Tobacco Use Types Packs/Day Years [...] is lower risk 4 11/14/2022 Data from: https://www.neighborhoodatlas.medicine.[facility].edu/. Last address used for calculation [address] 11/14/2022 Sex and Gender Information Value Date [...] 04/05/2025 9:30 AM EDT Office Visit Cardiology [address] [place] [address] [place] [address] [place], [place] [address] Follow Up Per Pt documented as of this encounter Goals Goal Patient Goal Type Associated Problems Recent Progress Patient-Stated? Author Blood Pressure < 130/80 Blood Pressure 112/69( 025 8:25 AM EDT) No Layla Roger PA-C documented as of this encounter Visit Diagnoses Not on filedocumented in this encounter Care Teams Hotel Maintenance Engineer Relationship Specialty Start Date End Date Tae Talamantes DO [address] [place] [address] PCP - General Internal Medicine 03/08/21 documented as of this encounter
--- OUTSIDE RECORDS SUMMARY | 2024-12-03 09:40 | XMS_ITS | Encounter Summary ---
Author Organization [facility] Address [facility] [place] [address] Care Team Providers Care Horticultural Specialty Grower Inside Name Role Phone Tae Talamantes DO Primary Care Provider [phone] Source Comments In the event this information is protected by the Federal Confidentiality of Alcohol and Drug AbusePatient Records regulations: The Federal rules restrict any use of the information to criminally investigate or prosecute any alcohol or drug abuse patient.[facility] Encounter Details Date Type Department Care Team (Late st Contact Info) Description 05/04/2022 Get Medical Advice [facility] [address] [id number] Javier Pop DO [address] [place] [address] Gel injection on knee Social History Tobacco Use Types Packs/Day Years Used Date Smoking Tobacco: Never Smokeless Tobacco: Never Alcohol Use Standard Drinks/Week Comments Yes 0 (1 standard drink = 0.6 oz pur e alcohol) rare PHQ-2 Answer Date Recorded PHQ-2 score 0 09/03/2021 Area Deprivation Index Answer Date Scott rded National Score (1-100), lower number is lower ri 65 03/06/2022 State Score (1-10), lower number is lower risk N ot on file 03/06/2022 Data from: https://www.neighborhoodatlas.medicine.[facility].edu/. Last address used for calculation [address] 03/06/2022 Sex and Gender Information Value Date Recorded Sex Assigned at Male 07/14/2021 9:09 PM EST Legal Sex Male 3:16 PM EDT Gender Identity Male 07/14/2021 9:09 PM EST Sexual Orientation Straight 07/14/2021 9: 09 PM EST documented as of this encounter Plan of Treatment Upcoming Encounters Date Type Department Care Team (Late st Contact Info) Description 04/05/2025 9:30 AM EDT Office Visit Cardiology [address] [place] [address] [place] [address] [place] [address] Follow Up Per Pt documented as of this encounter Visit Diagnoses Not on filedocumented in this encounter Care Teams Horticultural Specialty Grower Inside Relationship Specialty Start Date End Date Tae Talamantes DO [address] [place] [address] PCP - General Internal Medicine 03/08/21 documented as of this encounter
--- OUTSIDE RECORDS SUMMARY | 2024-12-03 09:40 | XMS_ITS | Encounter Summary ---
Author Organization [facility] Address [address] [place] [address] Care Team Providers Care Administration Internship Name Role Phone Tae Talamantes DO Primary Care Provider [phone] Source Comments In the event this information is protected by the Federal Confidentiality of Alcohol and Drug AbusePatient Records regulations: The Federal rules restrict any use of the information to criminally investigate or prosecute any alcohol or drug abuse patient.[facility] Encounter Details Date Type Department Care Team (Late st Contact Info) Description 05/28/2022 Get Medical Advice Cardiology [address] [place] [address] [place] [address] [place], [place] [phone] Atrial Fibrillation return Social History Tobacco Use Types Packs/Day Years [...] N ot on file 03/06/2022 Data from: https://www.neighborhoodatlas.medicine.[facility].edu/. Last address used for calculation [address] [...] suspected to have Coronavirus/COVID-19? No / Unsure 05/10/2022 8:57 AM EDT documented as of this encounter Plan of Treatment Upcoming Encounters Date Type Department Care Team (Late st Contact Info) Description 04/05/2025 9:30 AM EDT Office Visit Cardiology [address] [place] [address] [place] [address] [place] [address] Follow Up Per Pt documented as of this encounter Visit Diagnoses Not on filedocumented in this encounter Care Teams Administration Internship Relationship Specialty Start Date End Date Tae Talamantes DO [address] [place] [address] PCP - General Internal Medicine 03/08/21 documented as of this encounter
--- OUTSIDE RECORDS SUMMARY | 2024-12-03 09:40 | XMS_ITS | Encounter Summary ---
Author Organization [facility] Address [address] [place] [address] Care Team Providers Care Entertainment Usher Name Role Phone Tae Talamantes Primary Care Provider [phone] Source Comments In the event this information is protected by the Federal Confidentiality of Alcohol and Drug AbusePatient Records regulations: The Federal rules restrict any use of the information to criminally investigate or prosecute any alcohol or drug abuse patient.[facility] Encounter Details Date Type Department Care Team (Late st Contact Info) Description 08/14/2021 Patient Msg Cardiology [address] [place] [address] Provider, Ccf PROCEDURE Social History Tobacco Use Types Packs/Day Years [...] N ot on file 06/21/2020 Data from: https://www.neighborhoodatlas.medicine.[facility].edu/. Last address used for calculation Not [...] have Coronavirus / COVID-19? No / Unsure 08/15/2021 12:03 PM EST documented as of this encounter Plan of Treatment Upcoming Encounters Date Type Department Care Team (Late st Contact Info) Description 04/05/2025 9:30 AM EDT Office Visit Cardiology [address] [place] [address] [place] [address] [place], [place] [id number] Follow Up Per Pt documented as of this encounter Visit Diagnoses Not on filedocumented in this encounter Additional Health Concerns Infection Onset Date Last Indicated Resolved Time COVID-19 Rule-Out 08/15/2021 08/14/2021 09/04/2021 8:51 PM EST documented as of this encounter Care Teams Entertainment Usher Relationship Specialty Start Date End Date Tae Talamantes DO [address] [place] [address] PCP - General Internal Medicine 03/08/21 documented as of this encounter
--- OUTSIDE RECORDS SUMMARY | 2024-12-03 09:40 | XMS_ITS | Encounter Summary ---
Author Organization [facility] Address [address] [place] [address] Care Team Providers Care Windsmith Name Role Phone Tae Talamantes Primary Care Provider [phone] Source Comments In the event this information is protected by the Federal Confidentiality of Alcohol and Drug AbusePatient Records regulations: The Federal rules restrict any use of the information to criminally investigate or prosecute any alcohol or drug abuse patient.[facility] Encounter Details Date Type Department Care Team (Late st Contact Info) Description 07/27/2021 Patient [facility] ED [facility] [place] [place] [address] Provider, Cc re: Neurological Sleep Medicine Appointment Social History Tobacco Use Types Packs/Day Years [...] N ot on file 06/21/2020 Data from: https://www.neighborhoodatlas.medicine.[facility].edu/. Last address used for calculation Not [...] 04/05/2025 9:30 AM EDT Office Visit Cardiology [address] [place] [address] [place] [address] [place], [place] [id number] Follow Up Per Pt documented as of this encounter Visit Diagnoses Not on filedocumented in this encounter Additional Health Concerns Infection Onset Date Last Indicated Resolved Time COVID-19 Rule-Out 08/15/2021 08/14/2021 09/04/2021 8:51 PM EST documented as of this encounter Care Teams Windsmith Relationship Specialty Start Date End Date Tae Talamantes DO [address] [place] [address] PCP - General Internal Medicine 03/08/21 documented as of this encounter
--- OUTSIDE RECORDS SUMMARY | 2024-12-03 09:40 | XMS_ITS | Clinical Summary ---
Author Organization [facility] Address [address] [place] [address] Care Team Providers Care Real Estate Utilization Officer Name Role Phone Tae Talamantes DO Primary Care Provider [phone] Allergies Active Allergy Reactions Criticality Noted Date Comments Penicillins Rash 03/20/2019 Sulfa (Sulfonamide Antibiotics) Swelling 12/2018 Medications benazepril (LOTENSIN) 20 mg tablet Take 20 mg by mouth once daily. 9 Active MEN'S MULTI-VITAMIN ORAL Take by mouth once daily. Active Coenzyme Q10 200 mg cap Take 200 mg by mouth once daily. Active glucosamine/ch ondr prieto A sod (OSTEO BI-FLEX ORAL) Take 2 tablets by mouth one time only. Active S-Adenosylmeth ionine 400 mg tab Take 400 mg by mouth once daily. Active Cholecalcifero l, Vitamin D3, 50 mcg (2,000 unit) cap Take 2,000 Units by mouth once daily. 0 Active Zinc 50 mg tab Take 1 tablet by mouth once daily. 0 Active nitroglycerin sublingual (NITROQUICK) 0.4 mg SL tablet Dissolve 1 tablet under the tongue every 5 minutes as needed for chest pain. If no pain relief call 911. 25 tablet 3 3 Active rosuvastatin (CRESTOR) 40 mg tablet Take 1 tablet by mouth daily at bedtime. 90 tablet 3 4 Active ezetimibe (ZETIA) 10 mg tabletIndicati ons:Medication refill Take 1 tablet by mouth daily. 90 tablet 5 Active ELIQUIS 5 mg tab(s)Indicati ons:Medication refill Take 1 tablet by mouth twice daily. 180 tablet 5 Active flecainide (TAMBOCOR) 100 mg tablet Take 1 tablet by mouth two times a day. 180 tablet 3 5 Active metoprolol succinate ER (TOPROL XL) 25 mg 24 hr tablet Take 1/2 tablet by mouth daily at bedtime. 45 tablet 1 5 Active metoprolol succinate ER (TOPROL XL) 25 mg 24 hr tablet Take 0.5 tablets by mouth daily at bedtime. 45 tablet 3 4 025 Discontinued Active Problems Problem Noted Date Diagnosed Date Sleep apnea 10/15/2023 Abnormal cardiovascular stress test 12/19/2021 Pain in left knee 07/17/2021 Essential hypertension 04/08/2018 Under observation for suspected coronary artery disease Atrial fibrillation, persistent Other hyperlipidemia Elevated TSH Encounters Date Type Department Care Team Description 11/27/2024 Refill Cardiology [address] [place] [address] Joseluis Longo MD Refill Request 10/15/2024 8:30 AM EDT Office Visit Cardiology [address] [place] [address] Joseluis Longo MD Atrial fibrillation, persistent (HCC) (Primary Dx) 10/15/2024 Patient Msg Cardiology [address] [place] [address] Provider, Ccf Appointment Scheduling 10/08/2024 Travel 09/28/2024 Refill Cardiology [address] [place] [address] Carlos Garcia MD Refill Request from Last 3 Months Immunizations Immunization Administration Dates Next Due COVID-19 original vaccine, b ooster dose, monovalent (MODERNA) 05/19/2021 COVID-19 original vaccine, f ull dose, monovalent (MODERNA) 10/15/2020,09/17/2020 influenza (IIV4) vaccine, ag e 6 mo - 64 yr, quadrivalent (AFLURIA, FLULAVAL, FLUZONE) 05/02/2022 influenza (IIV4) vaccine, ag e 6 mo - 64 yr, quadrivalent, PF (AFLURIA, FLUARIX, FLULAVAL, FLUZONE) 06/25/2017 influenza (ccIIV4) vaccine, age 6+ mo, quadrivalent, PF (FLUCELVAX) 06/19/2018 Family History Medical History Relation Comments Coronary Artery Disease Father smoker; 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 Emphysema Paternal Grandfather Relation Status Comments Father Paternal Grandfather Social History Tobacco Use Types Packs/Day Years Used Date Smoking Tobacco: Never Smokeless Tobacco: Never Tobacco Cessation:Counseling Given: Not Answered Alcohol Use Standard Drinks/Week Comments Not Currently 0 (1 standard drink = 0.6 oz pur e alcohol) rare PHQ-2 Answer Date Recorded PHQ-2 score 0 09/03/2021 Area Deprivation Index Answer Date Scott rded National Score (1-100), lower number is lower ri sk 61 11/14/2022 State Score (1-10), lower number is lower risk 4 11/14/2022 Data from: https://www.neighborhoodatlas.medicine.[facility]/. Last address used for calculation [address] 11/14/2022 Sex and Gender Information Value Date Recorded Sex Assigned at Male 07/14/2021 9:09 PM EST Legal Sex Male 3:16 PM EDT Gender Identity Male 07/14/2021 9:09 PM EST Sexual Orientation Straight 07/14/2021 9: 09 PM EST Last Filed Vital Signs Vital Sign Reading Time Taken Comments Blood Pressure 112/69 10/15/2024 8:25 AM EDT Pulse 53 10/15/2024 8:25 AM EDT Temperature 36.2 C (97.2 F) 11/27/2023 10:15 AM EDT Respiratory Rate 22 11/27/2023 11:0 0 AM EDT Oxygen Saturation 96% 11/27/2023 11: 00 AM EDT Inhaled Oxygen Concentration - - Weight 104.6 kg (230 lb 9.6 oz) 10/15/2024 8:25 AM EDT Height 188 cm (6' 2 ) 11/27/2023 8:20 AM EDT Body Mass Index 29.61 11/27/2023 8:20 AM EDT Plan of Treatment Upcoming Encounters Date Type Department Care Team (Late st Contact Info) Description 04/05/2025 9:30 AM EDT Office Visit Cardiology [address] [place] [id number] [place] [address] [place] [address] Follow Up Per Pt Health Maintenance Due Date Last Done Comments Annual PCP Team Chronic Dise ase Visit 1976 Anxiety Screening 1976 Depression Screening 1976 Hepatitis C Screening 1976 CT Colonography 10/04/2003 Cologuard (FIT-DNA) 10/04/2003 Colonoscopy 10/04/2003 Colorectal Cancer Screening 10/04/2003 Fecal Occult Blood 10/04/2003 Sigmoidoscopy 10/04/2003 Pneumococcal Vaccine: 50+ (1 of 1 - PCV) 2008 Covid-19 Vaccine (2023-2 5 season) 2024 05/15/2022, 05/19/2021, 10/15/2020, Additional history exists LDL Cholesterol 05/20/2024 05/20/2023, 110 10/2021, 11/28/2021, Additional history exists Advance Directive Discussion 07/15/2024 BP Controlled (<130/80) 10/15/2025 10/15/2024 Diabetes Screening 11/24/2026 11/25/2023, 0 10/11/2023, 11/05/2022, Additional history exists Prostate Cancer Screening Discussion 11/29/2026 11/29/2021 DTaP,Tdap,Td Vaccine (2 - Tdap) 04/04/2028 8, 06/25/2017 Lipid Screening 05/20/2028 05/20/2023, 110 10/2021, 11/28/2021, Additional history exists RSV Vaccine (1 - 1-dose 75+ series) 2033 Shingrix Vaccine Completed 07/12/2021, 05/15/2021 Influenza Vaccine Completed 05/13/2024, , 05/02/2022, Additional history exists Goals Goal Patient Goal Type Associated Problems Recent Progress Patient-Stated? Author Blood Pressure < 130/80 Blood Pressure 112/69(04/03/2 025 8:25 AM EDT) No Layla Roger PA-C Procedures Procedure Name Priority Date/Time Associated Diagnosis Comments ECG COMPLETE 10/15/2024 8:25 AM EDT ECG COMPLETE Routine 10/15/2024 8:25 AM EDT Atrial fibrillation, persistent (HCC) BASIC METABOLIC PANEL Routine 11/25/2023 8:17 AM EDT Persistent atrial fibrillation (HCC) LIPID PANEL, FASTING Routine 05/20/2023 8:24 AM EST Coronary artery disease involving ekuk heart without angina pectoris, unspecified vessel or lesion type from Last 3 Months or Most Recently Relevant to Health Maintenance Results * ECG COMPLETE (10/15/2024 8:25 AM EDT) Pathologist [facility] Ventricular Rate 54 BPM [facility] Atrial Rate 54 BPM [facility] P-R Interval 200 ms [facility] QRS Duration 116 ms [facility] QT Interval 454 ms [facility] QTC Calculation (Bazett) 430 ms [facility] Calculated P Palmer 61 degrees [facility] Calculated R Palmer -53 degrees [facility] Calculated T Palmer 23 degrees [facility] 10/15/2024 8:25 AM EDT Impressions [facility] - 10/15/2024 1:05 PM EDT SINUS BRADYCARDIA LEFT ANTERIOR FASCICULAR BLOCK CANNOT EXCLUDE INFERIOR MYOCARDIAL INFARCTION (MASKED BY FASCICULAR BLOCK?) , AGE UNDETERMINED CANNOT EXCLUDE ANTERIOR MYOCARDIAL INFARCTION , AGE UNDETERMINED ABNORMAL ECG Confirmed by MD DEXTER, [facility] ([id number]) on 10/15/2024 1:05:20 PM Narrative [facility] - 10/15/2024 1:05 PM EDT NAME : CATY DOTY PID : [id number] : [id number] Gender : Male Race : ORD : [id number] Procedure Date : Oct 15 2024 08:25:23 Edit Date : Oct 15 2024 13:05:26 Diagnosis: SINUS BRADYCARDIA LEFT ANTERIOR FASCICULAR BLOCK CANNOT EXCLUDE INFERIOR MYOCARDIAL INFARCTION (MASKED BY FASCICULAR BLOCK?) , AGE UNDETERMINED CANNOT EXCLUDE ANTERIOR MYOCARDIAL INFARCTION , AGE UNDETERMINED ABNORMAL ECG Confirmed by MD GARCIA ANISH ([id number]) on 10/15/2024 1:05:20 PM Test Reason : I48.19 Atrial fibrillation, persistent (HCC) Location : 145 : [facility] Overread By : MD GARCIA ANISH Edited By : MD GARCIA ANISH Referred By : Donta, Acquired by : wero, Joseluis Longo MD EKG Final Result [facility] [address] [place], [place] [id number] * (ABNORMAL) BASIC METABOLIC PANEL (11/25/2023 8:17 AM EDT) [facility] Glucose 101(H) 74 - 99 mg/dL 11/25/2023 8:56 AM EDT [facility] Comment: The [place] Diabetes Association (ADA) provides guidance for cutoff [...] Standards of Medical Care in Diabetes 2016, [place] Diabetes Association. Diabetes Care. 2016.39(Suppl 1). BUN 16 9 - 24 mg/dL 11/25/2023 8:56 AM EDT [facility] Creatinine 0.82 0.73 - 1.22 mg/dL 11/25/2023 8:56 AM EDT [facility] Sodium 141 136 - 144 mmol/L 11/25/2023 8:56 AM EDT [facility] Potassium 4.7 3.7 - 5.1 mmol/L 11/25/2023 8:56 AM EDT [facility] Chloride 106(H) 97 - 105 mmol/L 11/25/2023 8:56 AM EDT [facility] CO2 27 22 - 30 mmol/L 11/25/2023 8:56 AM EDT [facility] Anion Gap 8(L) 9 - 18 mmol/L 11/25/2023 8:56 AM EDT [facility] Calcium, Total 10.0 8.5 - 10.2 mg/dL 11/25/2023 8:56 AM EDT [facility] Estimated Glomerular Filtration Rate 97 >=60 mL/min/1. 73m 11/25/2023 8:56 AM EDT [facility] Comment:Estimated Glomerular Filtration Rate (eGFR) is calculated using the 2020 CKD-EPI creatinine equation. This equation utilizes serum creatinine, sex, and age as parameters. The creatinine assay has traceable calibration to isotope dilution- mass spectrometry. Refer to KDIGO guidelines for clinical interpretation. In patients with unstable renal function, e.g. those with acute kidney injury, the eGFR may not accurately reflect actual GFR. Blood BLOOD SPECIMEN / Unknown Venipuncture / Unknown 11/25/2023 8:17 AM EDT 11/25/2023 8:17 AM EDT Layla Roger PA-C LABORATORY Final Result [facility] [address] [place] [address] * LIPID PANEL BASIC (05/20/2023 8:24 AM EST) [facility] Cholesterol, Total 126 <200 mg/dL 05/20/2023 10:36 PM EST [facility] Comment: <200 mg/dL, Desirable 200-239 mg/dL, Borderline high >239 mg/dL, High Triglyceride 55 <150 mg/dL 05/20/2023 10:36 PM EST [facility] Comment: <150 mg/dL, Normal 150-199 mg/dL, Borderline high 200-499 mg/dL, High >499 mg/dL, Very high HDL Cholesterol 43 >39 mg/dL 11/06/202 3 10:36 PM EST [facility] Comment: 40-59 mg/dL, Acceptable >59 mg/dL, High: Negative risk factor for coronary heart disease <40 mg/dL, Low: Positive risk factor for coronary heart disease Non HDL Cholesterol 83 <130 mg/dL 05/20/2023 10:36 PM EST [facility] Comment: <130 mg/dL, Optimal 130-159 mg/dL, Near optimal/above optimal 160-189 mg/dL, Borderline high 190-219 mg/dL, High >219 mg/dL, Very high Secondary prevention optimal non HDL Cholesterol levels are recommended to be <100 mg/dL Fasting Time 12 hrs 05/20/2023 10:36 PM EST [facility] VLDL Cholesterol 11 <30 mg/dL 05/20/20 10:36 PM EST [facility] TC:HDL Ratio 2.93 <5.10 05/20/2023 10:36 PM EST [facility] LDL Cholesterol, Calculated 72 <100 mg/dL 05/20/2023 10:36 PM EST [facility] Comment: <100 mg/dL, Optimal 100-129 mg/dL, Near optimal/above optimal 130-159 mg/dL, Borderline high 160-189 mg/dL, High >189 mg/dL, Very high Secondary prevention optimal LDL Cholesterol levels are recommended to be < 70 mg/dL LDL:HDL Ratio 1.67 <2.54 05/20/2023 10:36 PM EST [facility] Comment: Reference: 1. National Cholesterol Education Program ATP III Guideline At-A-Glance Quick Desk Reference: National Heart, Lung, and Blood [place]. National Institutes of Health. 2001: NIH Publication No. 01-3305. 2. An International Atherosclerosis Society position paper: global recommendations for the management of dyslipidemia: executive summary, Atherosclerosis. 2014: 232(2):410-413. Blood BLOOD SPECIMEN / Unknown Venipuncture / Unknown 05/20/2023 8:24 AM EST 05/20/2023 8:24 AM EST us Carlos Garcia MD LABORATORY Final Resul t [facility] [address] [facility] [address] [place] [address], [facility] [address] [place] [address] from Last 3 Months or Most Recently Relevant to Health Maintenance Insurance O DANIA Care Teams Real Estate Utilization Officer Relationship Specialty Start Date End Date Tae Talamantes DO [address] [facility] [place] [address] PCP - General Internal Medicine 03/08/21
--- OUTSIDE RECORDS SUMMARY | 2024-12-03 09:40 | XMS_ITS | Encounter Summary ---
Author Organization [facility] Address [address] [place] [address] Care Team Providers Care Wrapping Machine Helper Name Role Phone Tae Talamantes Primary Care Provider [phone] Source Comments In the event this information is protected by the Federal Confidentiality of Alcohol and Drug AbusePatient Records regulations: The Federal rules restrict any use of the information to criminally investigate or prosecute any alcohol or drug abuse patient.[facility] Encounter Details Date Type Department Care Team (Late st Contact Info) Description 06/05/2022 Patient Msg Cardiology [address] [place] [address] Provider, Ccf PVI Ablation Social History Tobacco Use Types Packs/Day Years Used Date Smoking Tobacco: Never Smokeless Tobacco: Never Alcohol Use Standard Drinks/Week Comments Yes 0 (1 standard drink = 0.6 oz pur e alcohol) rare PHQ-2 Answer Date Recorded PHQ-2 score 0 09/03/2021 Area Deprivation Index Answer Date Scott rded National Score (1-100), lower number is lower ri sk 65 03/06/2022 State Score (1-10), lower number is lower risk N ot on file 03/06/2022 Data from: https://www.neighborhoodatlas.medicine.[facility].edu/. Last address used for calculation [address] 03/06/2022 Sex and Gender Information Value Date [...] 04/05/2025 9:30 AM EDT Office Visit Cardiology [address] [place] [address] [place] [address] [place], [place] [id number] Follow Up Per Pt documented as of this encounter Visit Diagnoses Not on filedocumented in this encounter Care Teams Wrapping Machine Helper Relationship Specialty Start Date End Date Tae Talamantes DO [address] [place] [address] PCP - General Internal Medicine 03/08/21 documented as of this encounter
[2024-12-03 09:52] LABS: Basophils Absolute Auto 0.1 10^3/uL (0.0-0.1); Basophils Percent Auto 0.9 % (0.2-2.0); Eosinophils Absolute Auto 0.3 10^3/uL (0.0-0.7); Eosinophils Percent Auto 3.6 % (0.9-7.0); Hematocrit 42.1 % (42.0-54.0); Immature Granulocytes Abs Auto 0.01 10^3/uL (0.00-0.03); Immature Granulocytes Pct Auto 0.1 % (0.0-0.5); Lymphocytes Absolute Auto 1.6 10^3/uL (1.2-3.8); Lymphocytes Percent Auto 20.8 % (20.5-60.0); Mean Corpuscular HGB Conc 33.3 g/dL (29.9-35.2); Mean Corpuscular Hemoglobin 30.4 pg (25.9-34.0); Mean Corpuscular Volume 91.5 fL (80.0-94.0); Monocytes Absolute Auto 0.5 10^3/uL (0.3-0.8); Monocytes Percent Auto 6.7 % (1.7-12.0); Neutrophils Absolute Auto 5.3 10^3/uL (1.4-6.5); Neutrophils Percent Auto 67.9 % (43.0-75.0); Platelet Count 249 10^3/uL (150-450); Red Cell Distribution Width 12.8 % (11.0-15.0); White Blood Count 7.8 10^3/uL (4.0-11.0)
[2024-12-03 10:20] LABS: Alanine Aminotransferase 36 U/L (16-63); Albumin Level 3.7 g/dL (3.4-5.0); Alkaline Phosphatase 58 U/L (46-116); Anion Gap 13.9; Aspartate Amino Transferase 27 U/L (15-37); BUN Creatinine Ratio 17.1; Bilirubin Total 0.4 mg/dL (0.2-1.0); Calcium 9.1 mg/dL (8.5-10.1); Carbon Dioxide 27.5 mmol/L (21.0-32.0); Chloride 106 mmol/L (98-107); Chol HDL Ratio 2.1; Cholesterol 106 mg/dL (<=200); Estimated GFR (African America >60 (>=60 mL/min/1.73m^2); Estimated GFR (Non-African Ame >60 (>=60 mL/min/1.73m^2); Globulin 3.6 g/dL; Glucose 98 mg/dL (74-106); HDL Cholesterol 50 mg/dL (40-60); LDL Cholesterol Calculated 43.4 mg/dL; Potassium 4.4 mmol/L (3.5-5.1); Sodium 143 mmol/L (136-145); Total Protein 7.3 g/dL (6.4-8.2); Triglycerides 63 mg/dL (<=150); VLDL CHOLESTEROL 12.6 mg/dL
[2024-12-03 11:55] LABS: Prostate Specific Antigen Scrn 1.03 ng/mL (<=4.00)
== END 2024-12-03 09:35 | disposition home or self-care (01) ==
LOC: LAB 09:37
PROVIDERS: PCP Internal Medicine; Visit Provider Internal Medicine
DX: Z00.00 Encounter for general adult medical examination without abnormal findings (principal); I10 Essential (primary) hypertension; I48.0 Paroxysmal atrial fibrillation; Z79.899 Other long term (current) drug therapy; Z12.5 Encounter for screening for malignant neoplasm of prostate; E78.00 Pure hypercholesterolemia, unspecified
CPT/HCPCS: 36415; 80053; 80061; 85025; G0103

== ENCOUNTER 2025-04-28 08:23 | Outpatient (OUT) | payer OTHER, SELFPAY ==
--- OUTSIDE RECORDS SUMMARY | 2025-04-28 08:26 | XMS_ITS | Encounter Summary ---
Author Organization [facility] Address [address] [place] [address] Care Team Providers Care Shake Sawyer Name Role Phone Tae Talamantes DO Primary Care Provider [phone] Source Comments In the event this information is protected by the Federal Confidentiality of Alcohol and Drug AbusePatient Records regulations: The Federal rules restrict any use of the information to criminally investigate or prosecute any alcohol or drug abuse patient.[facility] Encounter Details Date Type Department Care Team (Late st Contact Info) Description 10/04/2023 [place] [address] Provider, f Medicare Coverage of Physical Exams [...] is lower risk 4 11/14/2022 Data from: https://www.neighborhoodatlas.medicine.[facility].edu/. Last address used for calculation [place] [...] Care Team (Late st Contact Info) Description 06/04/2025 8:40 AM EST Office Visit Cardiology [address] [place] [address] [place] [address] [place] [address] 3m s/p dcc 09/08/2025 8:00 AM EST Office Visit Endocrinology [address] [place] [address] Antoinette Horn MD [address] [place] [address] Follow up 12/03/2025 8:00 AM EDT Office Visit Cardiology [address] [place] [address] [place] [address] [place] [address] 9 month follow up documented as of this encounter Visit Diagnoses Not on filedocumented in this encounter Care Teams Shake Sawyer Relationship Specialty Start Date End Date Tae Talamantes DO [address] [place] [address] PCP - General Internal Medicine 03/08/21 documented as of this encounter
--- OUTSIDE RECORDS SUMMARY | 2025-04-28 08:27 | XMS_ITS | Clinical Summary ---
Author Organization [facility] Address [address] [place] [address] Care Team Providers Care Motor Carrier Inspector Name Role Phone Tae Talamantes DO Primary Care Provider [phone] Allergies Active Allergy Reactions Criticality Noted Date [...] mouth daily at bedtime. 90 tablet 3 5 Active ELIQUIS 5 mg tab(s)Indicati ons:Medication refill Take 1 tablet by mouth twice daily. 180 tablet 3 5 Active ezetimibe (ZETIA) 10 mg tabletIndicati ons:Medication refill Take 1 tablet by mouth daily. 90 tablet 3 5 Active metoprolol succinate ER (TOPROL XL) 25 mg 24 hr tablet Take 1 tablet by mouth once daily. 90 tablet 2 5 Active levothyroxine (LEVOXYL) 25 mcg tablet Take 1 tablet by mouth once daily. 90 tablet 5 Active levothyroxine (SYNTHROID) 50 mcg tablet Take 1 tablet by mouth once daily. 90 tablet 5 025 Discontinued Active Problems Problem Noted Date Diagnosed Date Sleep apnea 10/15/2023 Abnormal cardiovascular stress test 12/19/2021 Pain in left knee 07/17/2021 Essential hypertension 04/08/2018 Under observation for suspected coronary artery disease Atrial fibrillation Other hyperlipidemia Elevated TSH Encounters Date Type Department Care Team Description 04/02/2025 2:00 PM EDT [facility] Endocrinology [address] [place] [address] Antoinette Horn MD Primary hypothyroidism (Primary Dx); High serum thyroid stimulating hormone (TSH) 03/31/2025 Travel 03/26/2025 Get Medical Advice Cardiology [address] [place] [address] Carlos Garcia MD AFib has returned 03/08/2025 Get Medical Advice Cardiology [address] [place] [address] Carlos Garcia MD Renewal of a previous prescription for flexcainide 03/04/2025 11:30 AM EDT Office Visit Cardiology [address] [place] [address] Carlos Garcia MD Coronary artery disease involving koyuk heart, unspecified vessel or lesion type, unspecified whether angina present (Primary Dx); Chronic atrial fibrillation (HCC); High serum thyroid stimulating hormone (TSH); Osteoarthritis, unspecified osteoarthritis type, unspecified site 02/25/2025 Travel 02/04/2025 Results Follow-Up Cardiology [address] [place] [address] Vikas Gaines APRN.REEL AND REWINDER OPERATOR from Last 3 Months Immunizations Immunization Administration [...] Relation Comments Coronary Artery Disease Father smoker; forestry worker Emphysema Paternal Grandfather Relation Status Comments Father [...] is lower risk 4 11/14/2022 Data from: https://www.neighborhoodatlas.medicine.[facility].edu/. Last address used for calculation [address] 11/14/2022 Sex and Gender Information Value Date Recorded Sex Assigned at Male 07/14/2021 9:09 PM EST Legal Sex Male 3:16 PM EDT Gender Identity Male 07/14/2021 9:09 PM EST Sexual Orientation Straight 07/14/2021 9: 09 PM EST Last Filed Vital Signs Vital Sign Reading Time Taken Comments Blood Pressure 124/66 03/04/2025 11:22 AM EDT Pulse 48 03/04/2025 11:22 AM EDT Temperature 36.1 C (97 F) 01/14/2025 8:44 AM EDT Respiratory Rate 16 01/14/2025 9:10 AM EDT Oxygen Saturation 96% 03/04/2025 11: 22 AM EDT Inhaled Oxygen Concentration - - Weight 103.2 kg (227 lb 8.2 oz) 025 11:22 AM EDT Height 188 cm (6' 2 ) 03/04/2025 11:22 AM EDT Body Mass Index 29.21 03/04/2025 11:22 AM EDT Plan of Treatment Upcoming Encounters Date Type Department Care Team (Late st Contact Info) Description 06/04/2025 8:40 AM EST Office Visit Cardiology [address] [place] [address] [place] [address] [place] [address] 3m s/p dcc 09/08/2025 8:00 AM EST Office Visit Endocrinology [id number] [place] [address] Antoinette Horn MD [address] [place] [address] Follow up 12/03/2025 8:00 AM EDT Office Visit Cardiology [id number] [place] [address] [place] [address] [place] [address] 9 month follow up Health Maintenance Due Date Last Done Comments Annual PCP Team Chronic Dise ase Visit 1976 Anxiety Screening 1976 Depression Screening 1976 Hepatitis C Screening 1976 CT Colonography 10/04/2003 Cologuard (FIT-DNA) 10/04/2003 Colonoscopy 10/04/2003 Colorectal Cancer Screening 10/04/2003 Fecal Occult Blood 10/04/2003 Sigmoidoscopy 10/04/2003 Pneumococcal Vaccine: 50+ (1 of 1 - PCV) 2008 LDL Cholesterol 05/20/2024 05/20/2023, 11/0 10/2021, 11/28/2021, Additional history exists Advance Directive Discussion 07/15/2024 Covid-19 Vaccine (2 6 season) 2025 05/15/2022, 05/19/2021, 10/15/2020, Additional history exists Influenza Vaccine (#1) 2025 4, 04/30/2023, 05/02/2022, Additional history exists Prostate Cancer Screening Discussion 11/29/2026 11/29/2021 Diabetes Screening 01/06/2028 01/05/2025, 0 11/25/2023, 10/11/2023, Additional history exists DTaP,Tdap,Td Vaccine (2 - Tdap) 04/04/2028 8, 06/25/2017 Lipid Screening 05/20/2028 05/20/2023, 10/2021, 11/28/2021, Additional history exists RSV Vaccine (1 - 1-dose 75+ series) 2033 Shingrix Vaccine Completed 07/12/2021, 05/15/2021 Goals Goal Patient Goal Type Associated Problems Recent Progress Patient-Stated? Author Blood Pressure < 130/80 Blood Pressure 124/66( 025 11:22 AM EDT) No Layla Roger PA-C Procedures Procedure Name Priority Date/Time Associated Diagnosis Comments LIPOPROTEIN (A) Routine 03/05/2025 8:40 AM EDT Coronary artery disease involving koyuk heart, unspecified vessel or lesion type, unspecified whether angina present Chronic atrial fibrillation (HCC) High serum thyroid stimulating hormone (TSH) TSH BLD Routine 03/05/2025 8:40 AM EDT Coronary artery disease involving koy[place] heart, unspecified vessel or lesion type, unspecified whether angina present Chronic atrial fibrillation (HCC) High serum thyroid stimulating hormone (TSH) LVEF TRANSTHORACIC ECHO Routine 02/02/2025 3:39 PM EDT ECHO Routine 02/02/2025 3:39 PM EDT Atrial fibrillation, persistent (HCC) History of cardiac radiofrequency ablation COMPREHENSIVE METABOLIC PANEL Routine 01/05/2025 9:22 AM EDT Atrial fibrillation, persistent (HCC) [I48.19] LIPID PANEL, FASTING Routine 05/20/2023 8:24 AM EST Coronary artery disease involving koy[place] heart without angina pectoris, unspecified vessel or lesion type from Last 3 Months or Most Recently Relevant to Health Maintenance Results * (ABNORMAL) THYROID STIMULATING HORMONE (03/05/2025 8:40 AM EDT) TSH 9.820(H) 0.270 - 4.200 mIU/L 03/05/2025 5:15 PM EDT [facility] Blood BLOOD SPECIMEN / Unknown Venipuncture / Unknown 03/05/2025 8:40 AM EDT 03/05/2025 8:41 AM EDT us Carlos Garcia MD LABORATORY Final Resul t Performing Organization Address City/[facility]/ZIP Co de Phone Number [facility] [address] [place] [address], [place] * LIPOPROTEIN (A) (03/05/2025 8:40 AM EDT) Lipoprotein (a) 20 <30 mg/dL 6:35 PM EDT [facility] Blood BLOOD SPECIMEN / Unknown Venipuncture / Unknown 03/05/2025 8:40 AM EDT 03/05/2025 8:41 AM EDT Carlos Garcia MD LABORATORY Final Resul t Performing Organization Address City/[facility]/ZIP Co de Phone Number [facility] [address] [place] [id number], [place] * ECHO (02/02/2025 3:39 PM EDT) 02/02/2025 3:39 PM EDT [facility] - 02/03/2025 9:13 AM EDT CONCLUSIONS: - Exam indication: Nonsustained atrial fibrillation - The left ventricle is normal in size. There is mild concentric left ventricular hypertrophy. Left ventricular systolic function is normal. EF = 68 5% (2D biplane) Definity contrast used for endocardial border detection. - The right ventricle is normal in size. Right ventricular systolic function is normal. - The visualized aorta is borderline dilated with a maximal dimension of 3.8 cm. - Exam was compared with the prior echocardiographic exam performed on 12/13/2021, same findings * * * Final * * * [facility] - 02/03/2025 9:13 AM EDT Echocardiography Report: Transthoracic Echo [facility] Date of service: 02/02/2025 3:39:35 PM MARKER Ordering physician: VIKAS GAINES Exam indication: Nonsustained atrial fibrillation Technologist: Dori TONG Interpreting physician: Rosie Campo MD PATIENT: Name: MR. CATY DOTY : 1960 Age: 64 years Gender: M History of arrhythmia and hypertension. Previous cardiovascular interventions: cardioversion (01/14/2025) Primary rhythm: sinus. Height: 188.00 cm BSA: 2.31 m Weight: 102.25 kg BMI: 28.9 kg/m Heart rate 53 bpm Blood pressure 134/69 mmHg Color Doppler was utilized to interrogate the cardiac valves assessed and spectral Doppler was utilized to determine the flow velocities and pressure gradients reported in this exam. MEASUREMENTS: Value Indexed Normal Max aortic dimension 3.8 cm Ao < 3.8 Left atrial volume 76 ml (Abreu's) 33 ml/m Joel <= 34 LV ID (diastole) 4.8 cm (2D) 2.06 cm/m LV ID (systole) 2.8 cm (2D) 1.22 cm/m IVS, leaflet tips 1.2 cm (2D) Posterior wall thickness 1.4 cm (2D) Left ventricular mass 250 g (2D) 108 g/m LV stroke volume 117 ml (2D biplane) LVOT stroke volume 107 ml 47 ml/m LV end diastolic volume 172 ml (2D biplane) 74.6 ml/m 34<=EDVi<75 LV end systolic volume 55 ml (2D biplane) 23.9 ml/m Ejection Fraction 68 % (2D biplane) EF > 52 FINDINGS: LEFT VENTRICLE The left ventricle is normal in size. There is mild concentric left ventricular hypertrophy. Left ventricular systolic function is normal. Grade I left ventricular diastolic dysfunction. Mitral annular lateral E/e': 6.5. Mitral annular septal E/e': 9.8. Definity contrast used for endocardial border detection. Wall Motion: All scored segments are normal. RIGHT VENTRICLE The right ventricle is normal in size. Right ventricular systolic function is normal. RV systolic tissue Doppler velocity is 13.3 cm/s. Tricuspid annular displacement is 3.1 cm. Estimated right ventricular systolic pressure is 39 mmHg consistent with mild pulmonary hypertension. Estimated right atrial pressure is 3 mmHg based on IVC assessment. LEFT ATRIUM The left atrial cavity is normal in size. Pulmonary Veins: The pulmonary venous pattern showed blunted systolic flow. RIGHT ATRIUM The right atrial cavity is normal in size. Inferior Vena Cava: The inferior vena cava appears normal measuring 2.0 cm. The vessel decreases greater than 50 percent with inspiration. MITRAL VALVE There is mild mitral annular calcification observed posterior. There is mild (1+) mitral valve regurgitation. There is mild thickening. The pressure half time is 45 msec. The peak mitral E/A ratio is 1.25. The average mitral E/e' ratio is 8.1. The mitral flow deceleration time is 156 msec. TRICUSPID VALVE There is mild (1+) tricuspid valve regurgitation. There is no thickening. The hepatic venous pattern showed normal systolic flow. AORTIC VALVE There is trace (trace - 1+) aortic valve regurgitation. Tricuspid aortic valve. There is mild thickening. The peak gradient is 6 mmHg (peak velocity = 123.0 cm/s). The mean gradient is 3 mmHg. The LVOT mean velocity is 66.4 cm/s. The LVOT diameter is 2.4 cm. The aortic VTI is 27.2 cm. The mean velocity in the aortic valve is 80.4 cm/s. The dimensionless valve index is 0.87. AV area is 3.93 cm (1.70 cm /m ) by continuity, VTI. The LVOT stroke volume index is 47 ml/m . PULMONIC VALVE There is mild (1+) pulmonic valve regurgitation. There is no thickening. AORTA The visualized aorta is borderline dilated. Measurements - Aortic valve annulus 2.2 cm. Sinus: 3.5 cm. Sinotubular junction 3.0 cm. Mid ascending aorta 3.8 cm. Mid arch 3.1 cm. Distal descending diaphragmatic level 2.2 cm. INTERATRIAL SEPTUM There is no evidence of intracardiac shunting as detected by Doppler. INTERVENTRICULAR SEPTUM There is no flow through the interventricular septum as detected by Doppler. PERICARDIUM There is no pericardial effusion. us Vikas Gaines SCIENTIFIC MANAGER.REEL AND REWINDER OPERATOR ECHO Final Res ult Performing Organization Address [facility]/ZIP Co de Phone Number [place] [phone] * LVEF TRANSTHORACIC ECHO (02/02/2025 3:39 PM EDT) [facility] LV Ejection Fraction 68 % [facility] Comment: (2D biplane) EF > 52 An LV Ejection Fraction of > 50% is normal 02/02/2025 3:39 PM EDT us Vikas Gaines SCIENTIFIC MANAGER.REEL AND REWINDER OPERATOR LVEF RESULTS Final Res ult Performing Organization Address [facility] [place] [address] * (ABNORMAL) COMPREHENSIVE METABOLIC PANEL (01/05/2025 9:22 AM EDT) [facility] Protein, Total 7.1 6.3 - 8.0 g/dL 01/05/2025 10:10 AM EDT [facility] Albumin 4.3 3.9 - 4.9 g/dL 01/05/2025 10:10 AM EDT [facility] Calcium, Total 9.3 8.5 - 10.2 mg/dL 01/05/2025 10:10 AM EDT [facility] Bilirubin, Total 0.4 0.2 - 1.3 mg/dL 01/05/2025 10:10 AM EDT [facility] Alkaline Phosphatase 58 38 - 113 U/L 01/05/2025 10:10 AM EDT [facility] AST 28 14 - 40 U/L 01/05/2025 10:10 AM [facility] ALT 28 10 - 54 U/L 01/05/2025 10:10 AM [facility] Glucose 93 74 - 99 mg/dL 01/05/2025 10:10 AM [facility] Comment: The [place] Diabetes Association (ADA) provides guidance for cutoff [...] Standards of Medical Care in Diabetes 2016, [place] Diabetes Association. Diabetes Care. 2016.39(Suppl 1). BUN 14 9 - 24 mg/dL 01/05/2025 10:10 AM [facility] Creatinine 0.69(L) 0.73 - 1.22 mg/dL 01/05/2025 10:10 AM [facility] Sodium 138 136 - 144 mmol/L 01/05/2025 10:10 AM [facility] Potassium 4.4 3.7 - 5.1 mmol/L 01/05/2025 10:10 AM [facility] Chloride 104 98 - 107 mmol/L 01/05/2025 10:10 AM [facility] CO2 25 22 - 30 mmol/L 01/05/2025 10:10 AM [facility] Anion Gap 9 8 - 15 mmol/L 01/05/2025 10:10 AM [facility] Estimated Glomerular Filtration Rate 102 >=60 mL/min/1. 73m 01/05/2025 10:10 AM [facility] Comment:Estimated Glomerular Filtration Rate (eGFR) is [...] BLOOD SPECIMEN / Unknown Venipuncture / Unknown 01/05/2025 9:22 AM EDT 01/05/2025 9:22 AM EDT us Vikas Gaines SCIENTIFIC MANAGER.REEL AND REWINDER OPERATOR LABORATORY Final Res ult [facility] [address] [place] [address] * LIPID PANEL BASIC (05/20/2023 8:24 AM EST) Cholesterol, Total 126 <200 mg/dL 05/20/2023 10:36 PM [facility] Comment: <200 mg/dL, Desirable 200-239 mg/dL, Borderline high >239 mg/dL, High Triglyceride 55 <150 mg/dL 05/20/2023 10:36 PM [facility] Comment: <150 mg/dL, Normal 150-199 mg/dL, Borderline high 200-499 mg/dL, High >499 mg/dL, Very high HDL Cholesterol 43 >39 mg/dL 10:36 PM [facility] Comment: 40-59 mg/dL, Acceptable >59 mg/dL, High: Negative risk factor for coronary heart disease <40 mg/dL, Low: Positive risk factor for coronary heart disease Non HDL Cholesterol 83 <130 mg/dL 05/20/2023 10:36 PM [facility] Comment: <130 mg/dL, Optimal 130-159 mg/dL, Near optimal/above optimal 160-189 mg/dL, Borderline high 190-219 mg/dL, High >219 mg/dL, Very high Secondary prevention optimal non HDL Cholesterol levels are recommended to be <100 mg/dL Fasting Time 12 hrs 05/20/2023 10:36 PM EST [facility] VLDL Cholesterol 11 <30 mg/dL 05/20/20 10:36 PM EST [facility] TC:HDL Ratio 2.93 <5.10 05/20/2023 10:36 PM EST [facility] LDL Cholesterol, Calculated 72 <100 mg/dL 05/20/2023 10:36 PM [facility] Comment: <100 mg/dL, Optimal 100-129 mg/dL, Near optimal/above optimal 130-159 mg/dL, Borderline high 160-189 mg/dL, High >189 mg/dL, Very high Secondary prevention optimal LDL Cholesterol levels are recommended to be < 70 mg/dL LDL:HDL Ratio 1.67 <2.54 05/20/2023 10:36 PM EST [facility] Comment: Reference: 1. National Cholesterol Education Program ATP III Guideline At-A-Glance Quick Desk Reference: National Heart, Lung, and Blood [place]. National Institutes of Health. 2001: NIH Publication No. 01-3305. 2. An International Atherosclerosis Society position paper: global recommendations for the management of dyslipidemia: executive summary, Atherosclerosis. 2014: 232(2):410-413. Blood BLOOD SPECIMEN / Unknown Venipuncture / Unknown 05/20/2023 8:24 AM EST 05/20/2023 8:24 AM EST us Carlos Garcia MD LABORATORY Final Resul t [facility] [address] [address], [facility] [address] [place] [address] from Last 3 Months or Most Recently Relevant to Health [place] [address] O DANIA Care Teams Motor Carrier Inspector Relationship Specialty Start Date End Date Tae Talamantes DO [address] [place] [address] PCP - General Internal Medicine 03/08/21
--- OUTSIDE RECORDS SUMMARY | 2025-04-28 08:27 | XMS_ITS | Encounter Summary ---
Author Organization [facility] Address [facility] [place] [address] Care Team Providers Care Shorthand Reporter Name Role Phone Tae Talamantes DO Primary Care Provider [phone] Source Comments In the event this information is protected by the Federal Confidentiality of Alcohol and Drug AbusePatient Records regulations: The Federal rules restrict any use of the information to criminally investigate or prosecute any alcohol or drug abuse patient.[facility] Encounter Details Date Type Department Care Team (Late st Contact Info) Description 05/04/2022 Get Medical Advice [facility] [address] [place] [phone] Javier Pop DO [address] [place] [address] Gel injection on knee Social History Tobacco [...] N ot on file 03/06/2022 Data from: https://www.neighborhoodatlas.medicine.[facility].edu/. Last address used for calculation [address] [...] 06/04/2025 8:40 AM EST Office Visit Cardiology [id number] [place] [address] [place] [address] [place] [address] 3m s/p dcc 09/08/2025 8:00 AM EST Office Visit Endocrinology [address] [place] [address] Antoinette Horn MD [address] [place] [address] Follow up 12/03/2025 8:00 AM EDT Office Visit Cardiology [address] [place] [address] [place] [address] [place] [address] 9 month follow up documented as of this encounter Visit Diagnoses Not on filedocumented in this encounter Care Teams Shorthand Reporter Relationship Specialty Start Date End Date Tae Talamantes DO [address] [place] [address] PCP - General Internal Medicine 03/08/21 documented as of this encounter
--- OUTSIDE RECORDS SUMMARY | 2025-04-28 08:27 | XMS_ITS | Encounter Summary ---
Author Organization [facility] Address [address] [place] [address] Care Team Providers Care Barista Name Role Phone Tae Talamantes Primary Care Provider [phone] Source Comments In the event this information is protected by the Federal Confidentiality of Alcohol and Drug AbusePatient Records regulations: The Federal rules restrict any use of the information to criminally investigate or prosecute any alcohol or drug abuse patient.[facility] Encounter Details Date Type Department Care Team (Late st Contact Info) Description 06/05/2022 Patient Msg Cardiology [address] [place] [address] Provider, [facility]cf PVI Ablation Social [...] N ot on file 03/06/2022 Data from: https://www.neighborhoodatlas.medicine.[facility].edu/. Last address used for calculation [address] [...] 06/04/2025 8:40 AM EST Office Visit Cardiology [address] [place] [address] [place] [address] [place] [address] 3m s/p dcc 09/08/2025 8:00 AM EST Office Visit Endocrinology [address] [place] [address] Antoinette Horn MD [address] [place] [address] Follow up 12/03/2025 8:00 AM EDT Office Visit Cardiology [address] [place] [address] [place] [address] [place] [address] 9 month follow up documented as of this encounter Visit Diagnoses Not on filedocumented in this encounter Care Teams Barista Relationship Specialty Start Date End Date Tae Talamantes DO [address] [place] [address] PCP - General Internal Medicine 03/08/21 documented as of this encounter
--- OUTSIDE RECORDS SUMMARY | 2025-04-28 08:27 | XMS_ITS | Encounter Summary ---
Author Organization [facility] Address [address] [place] [address] Care Team Providers Care Search Consultant Name Role Phone Tae Talamantes DO Primary Care Provider [phone] Source Comments In the event this information is protected by the Federal Confidentiality of Alcohol and Drug AbusePatient Records regulations: The Federal rules restrict any use of the information to criminally investigate or prosecute any alcohol or drug abuse patient.[facility] Encounter Details Date Type Department Care Team (Late st Contact Info) Description 05/28/2022 Get Medical Advice Cardiology [address] [place] [phone] [place] [address] [place], [place] [phone] Atrial Fibrillation return Social History Tobacco Use [...] N ot on file 03/06/2022 Data from: https://www.neighborhoodatlas.medicine.[facility].edu/. Last address used for calculation [address] 03/06/2022 Sex and Gender Information Value Date [...] 06/04/2025 8:40 AM EST Office Visit Cardiology [address] [place] [address] [place] [address] [place] [address] 3m s/p dcc 09/08/2025 8:00 AM EST Office Visit Endocrinology [address] [place] [address] Antoinette Horn MD [address] [place] [address] Follow up 12/03/2025 8:00 AM EDT Office Visit Cardiology [address] [place] [address] [place] [address] [place] [address] 9 month follow up documented as of this encounter Visit Diagnoses Not on filedocumented in this encounter Care Teams Search Consultant Relationship Specialty Start Date End Date Tae Talamantes DO [address] [place] [address] PCP - General Internal Medicine 03/08/21 documented as of this encounter
--- OUTSIDE RECORDS SUMMARY | 2025-04-28 08:27 | XMS_ITS | Encounter Summary ---
Author Organization [facility] Address [address] [place] [address] Care Team Providers Care Eclectic Doctor Name Role Phone Tae Talamantes Primary Care Provider [phone] Source Comments In the event this information is protected by the Federal Confidentiality of Alcohol and Drug AbusePatient Records regulations: The Federal rules restrict any use of the information to criminally investigate or prosecute any alcohol or drug abuse patient.[facility] Encounter Details Date Type Department Care Team (Late st Contact Info) Description 11/29/2021 Patient Msg Cardiology [address] [place] [address] Provider, Ccf Cardiology procedure scheduling [...] N ot on file 06/21/2020 Data from: https://www.neighborhoodatlas.medicine.[facility]/. Last address used for calculation Not [...] 06/04/2025 8:40 AM EST Office Visit Cardiology [id number] [place] [address] [place] [address] [place] [address] 3m s/p dcc 09/08/2025 8:00 AM EST Office Visit Endocrinology [address] [place] [address] Antoinette Horn MD [address] [place], [place] [phone] Follow up 12/03/2025 8:00 AM EDT Office Visit Cardiology [address] [place] [phone] [place] [address] [place] [address] 9 month follow up documented as of this encounter Visit Diagnoses Not on filedocumented in this encounter Care Teams Eclectic Doctor Relationship Specialty Start Date End Date Tae Talamantes DO [address] [place] [address] PCP - General Internal Medicine 03/08/21 documented as of this encounter
--- OUTSIDE RECORDS SUMMARY | 2025-04-28 08:27 | XMS_ITS | Encounter Summary ---
Author Organization [facility] Address [address] [place] [address] Care Team Providers Care Church Business Administrator Name Role Phone Tae Talamantes Primary Care Provider [phone] Source Comments In the event this information is protected by the Federal Confidentiality of Alcohol and Drug AbusePatient Records regulations: The Federal rules restrict any use of the information to criminally investigate or prosecute any alcohol or drug abuse patient.[facility] Encounter Details Date Type Department Care Team (Late st Contact Info) Description 08/14/2021 Patient Msg Cardiology [address] [place] [address] Provider, Ccf PROCEDURE Social History [...] N ot on file 06/21/2020 Data from: https://www.neighborhoodatlas.medicine.[place].edu/. Last address used for calculation Not on [...] 06/04/2025 8:40 AM EST Office Visit Cardiology [address] [place] [phone] [place] [id number] [place] [address] 3m s/p [facility] 09/08/2025 8:00 AM EST Office Visit Endocrinology [id number] [place] [address] Antoinette Horn MD [address] [place], [place] [phone] Follow up 12/03/2025 8:00 AM EDT Office Visit Cardiology [address] [place] [phone] [place] [address] [place] [address] 9 month follow up documented as of this encounter Visit Diagnoses Not on filedocumented in this encounter Additional Health Concerns Infection Onset Date Last Indicated Resolved Time COVID-19 Rule-Out 08/15/2021 08/14/2021 09/04/2021 8:51 PM EST documented as of this encounter Care Teams Church Business Administrator Relationship Specialty Start Date End Date Tae Talamantes DO [address] [place] [address] PCP - General Internal Medicine 03/08/21 documented as of this encounter
--- OUTSIDE RECORDS SUMMARY | 2025-04-28 08:27 | XMS_ITS | Encounter Summary ---
Author Organization [facility] Address [address] [place] [address] Care Team Providers Care Front Services Agent Name Role Phone Tae Talamantes DO Primary Care Provider [phone] Source Comments In the event this information is protected by the Federal Confidentiality of Alcohol and Drug AbusePatient Records regulations: The Federal rules restrict any use of the information to criminally investigate or prosecute any alcohol or drug abuse patient.[facility] Encounter Details Date Type Department Care Team (Late st Contact Info) Description 10/15/2024 Patient Msg Cardiology [address] [place] [address] Provider, Ccf Appointment Scheduling Social History Tobacco [...] is lower risk 4 11/14/2022 Data from: https://www.neighborhoodatlas.medicine.[place].edu/. Last address used for calculation [address] 11/14/2022 Sex and Gender Information Value Date [...] 06/04/2025 8:40 AM EST Office Visit Cardiology [address] [place] [address] [place] [address] [place] [address] 3m s/p dcc 09/08/2025 8:00 AM EST Office Visit Endocrinology [address] [place] [address] Antoinette Horn MD [address] [place] [address] Follow up 12/03/2025 8:00 AM EDT Office Visit Cardiology [address] [place] [address] [place] [address] [place] [address] 9 month follow up documented as of this encounter Goals Goal Patient Goal Type Associated Problems Recent Progress Patient-Stated? Author Blood Pressure < 130/80 Blood Pressure 124/66( 025 11:22 AM EDT) No Layla Roger PA-C documented as of this encounter Visit Diagnoses Not on filedocumented in this encounter Care Teams Front Services Agent Relationship Specialty Start Date End Date Tae Talamantes DO [address] [place] [address] PCP - General Internal Medicine 03/08/21 documented as of this encounter
--- OUTSIDE RECORDS SUMMARY | 2025-04-28 08:27 | XMS_ITS | Encounter Summary ---
Author Organization [facility] Address [address] [place] [address] Care Team Providers Care Outpatient Admitting Clerk Name Role Phone Tae Talamantes DO Primary Care Provider [phone] Source Comments In the event this information is protected by the Federal Confidentiality of Alcohol and Drug AbusePatient Records regulations: The Federal rules restrict any use of the information to criminally investigate or prosecute any alcohol or drug abuse patient.[facility] Encounter Details Date Type Department Care Team (Late st Contact Info) Description 08/01/2021 Get Medical Advice Cardiology [address] [place] [phone] [place] [address] [place] [address] EKG Social History Tobacco Use Types Packs/Day [...] N ot on file 06/21/2020 Data from: https://www.neighborhoodatlas.medicine.[facility].edu/. Last address used for calculation Not on [...] 06/04/2025 8:40 AM EST Office Visit Cardiology [id number] [place] [phone] [place] [address] [place] [address] 3m s/p dcc 09/08/2025 8:00 AM EST Office Visit Endocrinology [address] [place] [address] Antoinette Horn MD [address] [place] [address] Follow up 12/03/2025 8:00 AM EDT Office Visit Cardiology [address] [place] [address] [place] [address] [place] [address] 9 month follow up documented as of this encounter Visit Diagnoses Not on filedocumented in this encounter Additional Health Concerns Infection Onset Date Last Indicated Resolved Time COVID-19 Rule-Out 08/15/2021 08/14/2021 09/04/2021 8:51 PM EST documented as of this encounter Care Teams Outpatient Admitting Clerk Relationship Specialty Start Date End Date Tae Talamantes DO [address] [place] [address] PCP - General Internal Medicine 03/08/21 documented as of this encounter
--- OUTSIDE RECORDS SUMMARY | 2025-04-28 08:27 | XMS_ITS | Encounter Summary ---
Author Organization [facility] Address [address] [place] [address] Care Team Providers Care Business Process Modeler Name Role Phone Tae Talamantes Primary Care Provider [phone] Source Comments In the event this information is protected by the Federal Confidentiality of Alcohol and Drug AbusePatient Records regulations: The Federal rules restrict any use of the information to criminally investigate or prosecute any alcohol or drug abuse patient.[facility] Encounter Details Date Type Department Care Team (Late st Contact Info) Description 07/27/2021 Patient [facility] [place] [address] Provider, Cc re: Neurological Sleep Medicine Appointment [...] N ot on file 06/21/2020 Data from: https://www.neighborhoodatlas.medicine.[facility]/. Last address used for calculation Not on [...] 06/04/2025 8:40 AM EST Office Visit Cardiology [address] [place] [phone] [place] [address] [place] [address] 3m s/p dcc 09/08/2025 8:00 AM EST Office Visit Endocrinology [phone] [place] [address] Antoinette Horn MD [address] [place] [address] Follow up 12/03/2025 8:00 AM EDT Office Visit Cardiology [address] [place] [phone] [place] [address] [place] [address] 9 month follow up documented as of this encounter Visit Diagnoses Not on filedocumented in this encounter Additional Health Concerns Infection Onset Date Last Indicated Resolved Time COVID-19 Rule-Out 08/15/2021 08/14/2021 09/04/2021 8:51 PM EST documented as of this encounter Care Teams Business Process Modeler Relationship Specialty Start Date End Date Tae Talamantes DO [address] [place] [address] PCP - General Internal Medicine 03/08/21 documented as of this encounter
--- OUTSIDE RECORDS SUMMARY | 2025-04-28 08:28 | XMS_ITS | Encounter Summary ---
Author Organization [facility] Address [address] [place] [address] Care Team Providers Care Communications Department Chair Name Role Phone Tae Talamantes Primary Care Provider [phone] Source Comments In the event this information is protected by the Federal Confidentiality of Alcohol and Drug AbusePatient Records regulations: The Federal rules restrict any use of the information to criminally investigate or prosecute any alcohol or drug abuse patient.[facility] Encounter Details Date Type Department Care Team (Late st Contact Info) Description 01/05/2025 Patient Msg Cardiology [address] [place] [address] Provider, Ccf CARDIOVERSION Social History [...] is lower risk 4 11/14/2022 Data from: https://www.neighborhoodatlas.medicine.[facility].edu/. Last address used for calculation [address] [...] 06/04/2025 8:40 AM EST Office Visit Cardiology [address] [place] [address] [place] [address] [place] [address] 3m s/p dcc 09/08/2025 8:00 AM EST Office Visit Endocrinology [address] [place] [address] Antoinette Horn MD [address] [place] [address] Follow up 12/03/2025 8:00 AM EDT Office Visit Cardiology [address] [place] [address] [place] [address] [place] [address] 9 month follow up documented as of this encounter Goals Goal Patient Goal Type Associated Problems Recent Progress Patient-Stated? Author Blood Pressure < 130/80 Blood Pressure 124/66( 025 11:22 AM EDT) No Layla Roger PA-C documented as of this encounter Visit Diagnoses Not on filedocumented in this encounter Care Teams Communications Department Chair Relationship Specialty Start Date End Date Tae Talamantes DO [address] [place] [address] PCP - General Internal Medicine 03/08/21 documented as of this encounter
--- OUTSIDE RECORDS SUMMARY | 2025-04-28 08:28 | XMS_ITS | Encounter Summary ---
Author Organization [facility] Address [address] [place] [address] Care Team Providers Care Spiral Machine Operator Name Role Phone Tae Talamantes DO Primary Care Provider [phone] Source Comments In the event this information is protected by the Federal Confidentiality of Alcohol and Drug AbusePatient Records regulations: The Federal rules restrict any use of the information to criminally investigate or prosecute any alcohol or drug abuse patient.[facility] Encounter Details Date Type Department Care Team (Late st Contact Info) Description 01/04/2025 Patient Msg Cardiology [address] [place] [address] [place] [address] [place], [place] [phone] Appointment Request Social History Tobacco Use Types Packs/Day [...] Data from: https://www.neighborhoodatlas.medicine.[facility].edu/. Last address used for calculation [address] 11/14/2022 Sex and Gender Information Value [...] 06/04/2025 8:40 AM EST Office Visit Cardiology [address] [place] [address] [place] [address] [place] [address] 3m s/p dcc 09/08/2025 8:00 AM EST Office Visit Endocrinology [address] [place] [address] Antoinette Horn MD [address] [place], [place] [phone] Follow up 12/03/2025 8:00 AM EDT Office Visit Cardiology [address] [place] [address] [place] [address] [place] [address] 9 month follow up documented as of this encounter Goals Goal Patient Goal Type Associated Problems Recent Progress Patient-Stated? Author Blood Pressure < 130/80 Blood Pressure 124/66( 025 11:22 AM EDT) No Layla Roger PA-C documented as of this encounter Visit Diagnoses Not on filedocumented in this encounter Care Teams Spiral Machine Operator Relationship Specialty Start Date End Date Tae Talamantes DO [address] [place] [address] PCP - General Internal Medicine 03/08/21 documented as of this encounter
--- OUTSIDE RECORDS SUMMARY | 2025-04-28 08:28 | XMS_ITS | CCD ---
Author Organization [facility] Care Team Providers Care Research Computing Specialist Name Role Phone Tae Martinez DO Primary Care Provider JUAN, DR IRAHETA Primary Care Unavailable BALL, DR IRAHETA Admitting Unavailable BALL, DR IRAHETA Attending Unavailable BALL, DR IRAHETA Consulting Unavailable BALL, DR IRAHETA Admitting Unavailable BALL, DR IRAHETA Attending Unavailable BALL, DR IRAHETA Consulting Unavailable BALL, DR IRAHETA Primary Care Unavailable Tae Martinez DO Primary Care Provider Tae Martinez DO Primary Care Provider Tae Martinez Tae Martinez DO Primary Care Provider JESSE LONGO Admitting Unavaila ble JESSE LONGO Attending Unavaila ble TAE MARTINEZ Primary Care Unavailable ARCHANA HARKINS Admitting Unavailable ARCHANA HARKINS Attending Unavailable TAE MARTINEZ Primary Care Unavailable HAZARIKA SUROVI Admitting Unavailable HAZJOSE MANUEL HUGHESOVI Attending Unavailable TAE MARTINEZ Primary Care Unavailable TAE MARTINEZ Primary Care Unavailable VICTOIRA, JOHNNA Attending Unavailable TAE MARTINEZ Primary Care Unavailable VICTORIA, JOHNNA Referring Unavailable TAE MARTINEZ Primary Care Unavailable JESSE LONGO Attending Unavaila ble ANTOINETTE HORN Attending Unavailable KYUNGAPCARLOS Petersen K Referring Unavailable TAE MARTINEZ Primary Care Unavailable TAE MARTINEZ Primary Care Unavailable DEXTER CARLOS K Attending Unavailable TAE MARTINEZ Primary Care Unavailable TAE MARTINEZ Primary Care Unavailable VICTORIA, JOHNNA Referring Unavailable Allergies Allergy Classification Reported Allergen(s) Allergy Type Date of Onset Reaction(s) Facility (14 sources) Penicillins; Translations: [PENICILLINS] Drug Allergy 03-20-20 Rash [facility] (20 sources) Sulfonamides (Antibiotic); Translations: [SULFA (SULFONAMIDE ANTIBIOTICS)] Drug Allergy 09-06-20 19 Swelling [facility] (20 sources) Penicillins Drug Allergy 03-20-20 19 Rash [facility] (1 source) Penicillins Drug allergy (disorder) [facility] (1 source) Sulfonamides (Antibiotic) Drug allergy (disorder) [facility] (1 source) Sulf-10 Drug allergy Unknown [facility] Other (1 source) patient allergy list reviewed by nurse or physicia Propensity to adverse reactions 02-16-20 Comment:Done [facility] Other (4 sources) penicillAMINE Drug Allergy 12-23-19 24 Unknown, Unknown Reaction [facility] (12 sources) Penicillins Drug Allergy 03-20-20 19 [facility] Medications Current Medications Medication Drug Class(es) Dates Sig (Normalized) Sig (Original) acetaminophen 325 mg / HYDROcodone bitartrate 5 mg oral tablet (2 sources) Opioid Agonist Start: 12-16-2023 take 1 tablet by mouth twice daily as needed for pain Hydrocodone-Acet aminophen 5-325 mg tablet Active 1 TAB PO Twice daily as needed for pain 14 7 December 16, 2023 may cause sedation apixaban 5 mg oral tablet (20 sources) Factor Xa Inhibitor Start: 01-19-2021 End: 12-29-2024 take 1 tablet by mouth twice daily ELIQUIS 5 mg tab(s) Indications: Medication refill Take 1 tablet by mouth twice daily. 180 tablet 3 12/29/2024 Active Comment on above: Take 5 mg by mouth t wice daily. Take 1 tablet by hansel th twice daily. Take 1 tablet by hansel th two times a day. benazepril hydrochloride 20 mg oral tablet (20 sources) Angiotensin Converting Enzyme Inhibitor Start: 06-30-2024 take 1 tablet by mouth once daily Benazepril 20 mg tablet Active 0 .ROUTE .COMPLEX 90 June 30, 2024 9:34am Take 1 tablet by mouth once daily. Start: 02-10-2019 End: 06-30-2024 take 1 tablet by mouth once daily benazepril (LOTENSIN) 20 mg tablet Take 20 mg by mouth once daily. 02/10/2019 Active Comment on above: Take 20 mg by mouth once daily. cholecalciferol 0.05 mg oral capsule (20 sources) Vitamin D Start: 12-04-19 25 take 1 capsule by mouth once daily Cholecalciferol (Vitamin D3) 50 mcg (2,000 unit) capsule Active 50 MCG PO Daily December 03, 2024 12:00am Start: 10-14-2019 take 1 capsule by [facility] once daily Cholecalciferol, Vitamin D3, 50 mcg (2,000 unit) cap Take 2,000 Units by mouth once daily. 10/14/2019 Active Comment on above: Take 2,000 Units by mouth once daily. ezetimibe 10 mg oral tablet (20 sources) Dietary Cholesterol Absorption Inhibitor Start: 3 End: 5 take 1 tablet by mouth once daily ezetimibe (ZETIA) 10 mg tablet Indications: Medication refill Take 1 tablet by mouth daily. 90 tablet 3 12/29/2024 Active Comment on above: Take 1 tablet by [facility] once daily. glucosamine hydrochloride 1500 mg oral tablet (1 source) Start: 5 take 1 tablet by mouth once daily Glucosamine Hcl 1,500 mg tablet Active 1500 MG PO Daily December 03, 2024 12:00am administer with a meal glucosamine/chondr prieto A sod (OSTEO BI-FLEX ORAL) (20 sources) take 2 tablets by mouth once glucosamine/chondr prieto A sod (OSTEO BI-FLEX ORAL) Take 2 tablets by mouth one time only. Active take 2 tablets by mouth once glu cosamine/chondr prieto A sod (OSTEO BI-FLEX ORAL) Take 2 tablets by mouth one time only. 0 Active glucosamine/zuri dr prieto A sod (OSTEO BI-FLEX ORAL) Take by mouth twice daily. 0 Active Comment on above: Take by mouth twice daily. Take 2 tablets by [facility] one time only. iv contrast (will be [...] above: CTA Coronary. No IV access, insert salin e lock prior to the sedation, infusion, injection [...] MIN ORAL Take by mouth once daily. Active MEN'S MULTI-LEVI MIN ORAL Take by mouth once daily. 0 Active Comment on above: Take by mouth once d aily. 24 hr metoprolol succinate 25 mg extended release oral tablet (20 sources) beta-Adrenergic Leia Start: 11-27-2024 End: 01-19-2025 take 1 tablet by mouth once daily metoprolol succinate ER (TOPROL XL) 25 mg 24 hr tablet Take 1 tablet by mouth once daily. 90 tablet 2 01/19/2025 Active Start: 12-03-2023 End: 12-19-2024 take 1 tablet by mouth once daily Metoprolol Succinate 25 mg tablet extended release 24 hr Discontinued 25 MG PO Daily December 03, 2023 12:00am December 03, 2024 8:39am Start: 11-27-2023 End: 12-20-2023 take 0.5 tablet [...] sources) HMG-CoA Reductase Inhibitor Start: 05-13-20 End: 12-29-19 take 1 tablet by mouth once daily at bedtime rosuvastatin (CRESTOR) 40 mg tablet Take 1 tablet by mouth daily at bedtime. 90 tablet 3 12/28/2024 Active Comment on above: Take 1 tablet by hansel th daily at bedtime. TAKE 1 TABLET AT BED TIME s-adenosylmethionine 400 mg oral tablet (20 sources) Start: 12-04-19 take 1 tablet by mouth once daily S-Adenosylmethionin e 400 mg tablet Active 400 MG PO Daily December 03, 2024 12:00am administer on an empty stomach Comment on above: Take 400 mg by [...] 200 mg by mouth once daily. Active Comment on above: Take 200 mg by mouth once daily. Zinc (20 sources) Start: 10-14-19 take 1 tablet by mouth once daily Zinc 50 mg tab Take 1 tablet by mouth once daily. 10/14/2019 Active Start: 10-14-2019 take 1 tablet by hansel th once daily Zinc 50 mg tab Take 1 tablet by mouth once daily. 0 10/14/2019 Active Comment on above: Take 1 tablet by hansel th once daily. zinc acetate 25 mg oral capsule (1 source) Start: 12-03-2024 take 1 capsule by mouth once daily Zinc Acetate 25 mg (zinc) capsule Active 25 MG PO Daily December 03, 2024 12:00am Completed/Discontinued Medications Medication Drug Class(es) Dates Sig (Normalized) Sig (Original) amiodarone hydrochloride 200 mg oral tablet (5 sources) Antiarrhythmic Start: 11-01-2022 End: 01-17-2023 take 1 tablet by mouth once daily amiodarone (PACERONE) 200 mg tablet Take 1 tablet by mouth once daily. 30 tablet 3 11/01/2022 01/17/2023 Discontinued (Course of therapy completed) Comment on above: Take 1 tablet by hansel th once daily. aspirin 81 mg delayed release oral tablet (16 sources) Platelet Aggregation Inhibitor, Nonsteroidal Anti-inflammatory Drug Start: 03-03-2021 take 1 tablet by mouth once daily aspirin, enteric coated (ADULT LOW DOSE ASPIRIN) 81 mg EC tablet Take 1 tablet by mouth once daily. 90 tablet 0 03/03/2021 Active Comment on above: Take 1 tablet by hansel th once daily. escitalopram 10 mg oral tablet (5 sources) Serotonin Reuptake Inhibitor Start: 12-02-2023 End: 12-03-2024 take 1 tablet by mouth once daily Escitalopram Oxalate 10 mg tablet Discontinued 10 MG PO Daily December 02, 2023 12:00am December 03, 2024 8:38am take 1 tablet by hansel th every twenty-four hours Escitalopram Oxalate 10 MG 1 tablet Oral ly Once a day Active flecainide acetate 100 mg oral tablet (20 sources) Antiarrhythmic Start: 02-11-2025 End: 03-03-2025 take 1 tablet by mouth twice daily flecainide (TAMBOCOR) 100 mg tablet Take 1 tablet by mouth two times a day. Patient should start on February 11, 2025. 180 tablet 2 02/11/2025 03/03/2025 Discontinued Start: 02-11-2025 take 1 tablet by hansel th twice daily flecainide (TAMBOCOR) 100 mg tablet Take 1 tablet by mouth two times a day. Patient should start on February 11, 2025. 180 tablet 2 02/11/2025 Active Start: 12-29-2024 End: 03-20-2025 take 1 tablet by mouth every twelve hours flecainide (TAMBOCOR) 100 mg tablet Take 1 tablet by mouth every 12 hours. 180 tablet 12/29/2024 01/19/2025 Discontinued Start: 12-03-2023 End: 12-03-2024 take 1 tablet by mouth every twelve hours Flecainide 100 mg tablet Discontinued 100 MG PO Every 12 hours December 03, 2023 12:00am December 03, 2024 8:39am Start: 11-08-2023 End: 12-29-2024 take 1 tablet by mouth twice daily flecainide (TAMBOCOR) 100 mg tablet Take 1 tablet by mouth two times a day. 180 tablet 3 10/15/2024 12/29/2024 Discontinued (Discontinued by another Health Care Provider) 10 ml lidocaine hydrochloride 10 mg/ml injection [...] on above: Take 1 tablet by hansel twice daily. predniSONE 20 mg oral tablet (2 sources) Start: 12-16-2023 End: 12-03-2024 Prednisone 20 mg tablet Discontinued 20 MG PO As Directed December 16, 2023 12:00am December 03, 2024 8:39am 1 tab tid w/ food x 3 days, then bid w/ food x 3 days, then qd w/ food x 3 days sotalol hydrochloride 80 mg oral tablet (20 [...] Date Documented Da te Episodic/Chronic Administrative/social admission (4 sources) Repeated prescription; Translations: [Encounter for issue of repeat prescription] Episodic Anxiety disorders (4 sources) Generalized anxiety disorder; Translations: [Generalized anxiety disorder] Chronic Cardiac dysrhythmias (20 sources) Persistent atrial fibrillation; Translations: [Other persistent atrial fibrillation] Onset: 01-14-2025 Resolved: 04-21-2021 Chronic Coronary atherosclerosis and other heart disease (6 sources) Coronary atherosclerosis; Translations: [Atherosclerotic heart disease of [place] coronary artery without angina pectoris] Onset: 03-05-2025 Chronic Deficiency and other anemia (4 sources) Anemia, unspecified; Translations: [ANEMIA UNSPECIFIED] Onset: 03-16-2022 Episodic Deficiency and other anemia (3 sources) Anemia; Translations: [Anemia, unspecified] 12-03-2023 Episodic Disorders of lipid metabolism (20 sources) Hyperlipidemia; Translations: [Other hyperlipidemia] Onset: 02-15-2014 Chronic Essential hypertension (20 sources) Essential hypertension; Translations: [Essential (primary) hypertension] Onset: 02-15-2014 Chronic Hyperplasia of prostate (8 sources) Benign prostatic hypertrophy without outflow obstruction; Translations: [Hypertrophy (benign) of prostate without urinary obstruction and other lower urinary tract symptoms [LUTS]] Onset: 02-15-2014 12-01-2023 Chronic Immunizations and screening for infectious disease (2 sources) Anti-nuclear factor positive; Translations: [Other specified abnormal immunological findings in serum] Episodic Joint disorders and dislocations; trauma-related (2 sources) Derangement of left knee; Translations: [Unspecified internal derangement of left knee] 12-16-2023 Chronic Mycoses (2 sources) Onychomycosis due to dermatophyte ; Translations: [Tinea unguium] Episodic Osteoarthritis (10 sources) Primary gonarthrosis, bilateral; Translations: [Bilateral primary osteoarthritis of knee] Onset: 04-27-2015 Chronic Other aftercare (1 source) Long-term current use of drug therapy; Translations: [Other half-way (current) drug therapy] Episodic Other aftercare (1 source) 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; Translations: [correction (current) use of anticoagulants] 11-08-2023 Episodic Other non-traumatic joint disorders (2 sources) Effusion of joint of left knee; Translations: [Effusion, left knee] 12-16-2023 Episodic Other non-traumatic joint disorders (2 sources) Pain in left shoulder; Translations: [Left shoulder pain] 12-23-2023 Episodic Other nutritional; endocrine; and metabolic disorders [...] [Pulmonary hypertension, unspecified] Chronic Residual codes; unclassified (6 sources) Obstructive sleep apnea syndrome; Translations: [Obstructive sleep apnea (adult) (pediatric)] 12-01-2023 Chronic Residual codes; unclassified (3 sources) Obstructive sleep apnea (adult) (pediatric); Translations: [Obstructive sleep apnea (adult)(pediatric)] Chronic Residual codes; unclassified (20 sources) Sleep apnea; Translations: [Sleep apnea, unspecified] Onset: 10-15-2023 10-15-2023 Chronic Residual codes; unclassified (1 source) H/O: atrial fibrillation; Translations: [Other specified postprocedural states] 11-08-2023 Episodic Residual codes; unclassified (2 sources) History of radiofrequency ablation operation for arrhythmia; Translations: [Other specified postprocedural states] 01-19-2025 Episodic Residual codes; unclassified (1 source) Other specified postprocedural states; Translations: [History of cardiac radiofrequency ablation] Onset: 01-19-2025 Episodic Superficial injury; contusion (2 sources) Abrasion, shoulder area; Translations: [Abrasion of unspecified shoulder, initial encounter] 12-23-2023 Episodic Thyroid disorders (6 sources) Hypothyroidism; Translations: [Other specified hypothyroidism] Onset: 04-14-2018 Chronic Unclassified (1 source) Aneurysm of the ascending aorta, without rupture; Translations: [Aneurysm of the ascending aorta, without rupture] Unclassified (3 sources) Other persistent atrial fibrillation; Translations: [Persistent atrial fibrillation (HCC)] Onset: 10-15-2023 Unclassified (1 source) High serum thyroid stimulating hormone (TSH) 03-04-2025 Unclassified (1 source) Chronic atrial fibrillation, unspecified; Translations: [Chronic atrial fibrillation (HCC)] Onset: 01-14-2025 Past or Other Problems Problem Classification Problem [...] cuff capsule, initial encounter] Onset: 06-24-2018 Episodic Unclassified (1 source) Patient encounter status 01-19-2025 Results Test Name Value Interpretation Reference Range Facility LPa SerPl-mCncon 03-05-2025 Lipoprotein a [Mass/Vol] 20 mg/dL Normal <30 [facility] Comment on above: Order Comment: [place] Type: BLOOD SPECIMEN Ordering Facility: [facility] Address: [address] [place] [address] Performed By: #### 3 051-0, 3024-7, 3016-3 #### [facility] CLIA [id number] [address] [place] [address] [place] TSH SerPl-aCncon 03-05-2025 TSH Qn 9.820 m[IU]/L High 0.270-4.200 [facility] Comment on above: Order Comment: [place] Type: BLOOD SPECIMEN Ordering Facility: [facility] Address: [address] [place] [address] Performed By: #### 3 016-3 #### [facility] CLIA [id number] [address] [place] [address] [place] CNOVon 03-04-2025 CNOV Office Visit ([facility] ) CATY KOHLI ([id number]) 1960 M Date Time Provider Department 03/04/25 11:30 AM CARLOS GARCIA During your visit today, we recorded the following information about you: Pulse Blood pressure Weight Height 48/minute 124/66 103.2 kg 1.88 m Carlos Garcia MD 03/04/2025 11:37 AM Addendum [facility] Department of Cardiovascular Medicine SECTION OF CARDIOLOGY OUTPATIENT VISIT DATE 03/04/2025 OUTPATIENT VISIT TYPE ESTABLISHED CHIEF COMPLAINT: Cardiovascular follow-up HISTORY OF PRESENT ILLNESS: Mr. Kohli is a pleasant 64 year old male here for cardiovascular follow-up. In interim, No CP/sob/major bleeding/leg swelling. Knee issues. The following portions of the patient's history were reviewed and updated as appropriate, allergies, current medications, past medical, social, surgical, and family history and problem list. I have personally interviewed, confirmed and edited the above information if obtained by others. CURRENT MEDICATIONS: metoprolol succinate ER (TOPROL XL) 25 mg 24 hr tablet Take 1 tablet by mouth once daily. ELIQUIS 5 mg tab(s) Take 1 tablet by mouth twice daily. ezetimibe (ZETIA) 10 mg tablet Take 1 tablet by mouth daily. rosuvastatin (CRESTOR) 40 mg tablet Take 1 tablet by mouth daily at bedtime. nitroglycerin sublingual (NITROQUICK) 0.4 mg SL tablet Dissolve 1 tablet under the tongue every 5 minutes as needed for chest pain. If no pain relief call 911. Cholecalciferol, Vitamin D3, 50 mcg (2,000 unit) [...] Take 400 mg by mouth once daily. Physical Exam BP 124/66 (BP Site: Right Arm, BP Position: Sitting, BP Cuff Size: Regular Adult) Pulse (!) 48 Ht 188 cm (6' 2 ) Wt 103.2 kg (227 lb 8.2 oz) SpO2 96% BMI 29.21 kg/m? Gen: alert, no acute distress, with HEENT: normocephalic, atraumatic, no rinorrhea, no congestion, normal hearing, EOMI, no eye discharge Heart: no murmurs, S1/S2+, regular rhythm, bradycardia Lungs: no wheezing, rales, symmetric expansion, nonlabored Abdomen: soft, nontender, nondistended Musculoskeletal: no edema, nontender Neurological: no focal deficits, alert, oriented Psychatric: cooperative, appropriate Pertinent Diagnostics/Labs/Data reviewed (ECG and echo listed personally reviewed) and include: 02/02/2025 TTE: 1+ TR, trace-1+ AR, 1+ ME, LVEF 68%, mild LVH, normal RVSF/size, normal LA/RA size, RVSP 39/RAP 3 12/13/21 TTE: LVEF69%, normal RVSF/size, normal LA/RA size, 1+ TR, 1+ ME, mid ascending 3.9cm 01/19/2021 TTE: LVEF 55-60%, RVSP 35-45mmHg, severe biatrial enlargement, mod TR, RV moderately dilated, mild-mod MR, mild LVH, Pharmacologic MPI 01/19/2021: partial reversibility in inferior wall, fixed defect in apex, LVEF 49%, 12/19/21 inasive Coronary angiogram: LVEDP 22, LM normal; LAD/Cx/RCA ectatic; mid-distal LAD 30-40% 11/28/21 CCTA: short LM no disesease, mLAD 70-90%, mCx 50-70%, dRCA <25%; ascending aorta 3.8cm 05/20/2023: LDL 72 05/18/22: LDL 75, TG 77, HDL 40, TC 130 05/12/2021: LDL 107, HDL 44, TC [...] 08/22/2021 PVI/PWI ablation 07/18/2022 DCCV for Afib 11/05/22, 10/15/2023, 11/27/2023, 01/14/2025 Other: HTN, HLD, sleep apnea (not on PAP therapy), OA, ??RA (not entirely clear), BPH, hx of abnl TSH Impression: Initial visit on 03/03/2021: AF discussion, OAC discussion, CAD discussion. 10/2021: Extremely active otherwise. CCTA then subsequent coronary angiogram. 05/11/22: Doing well. Risk factor modification. 05/18/23: Doing well. Repeat lipids. 03/04/2025: Some AF in interim. Plan: Apixaban 5mg bid Metoprolol-XL 25mg every day Rosuvastatin 40mg every day, CoQ 10 Ezetimibe 10mg every day Likely has Hypothyroid, probably should start therapy - Endocrinology referral RTC ~ 9 months Thank you, CONTACT INFORMATION: Carlos Garcia M.D. Cardiovascular Medicine Staff [facility] Mail Code [id number] [facility]. Jessica, (more content not included)... Normal [facility] ECHOon 02-02-2025 Echocardiography Echocardiography Report: Transthoracic Echo [facility] Date of service: 02/02/2025 3:39:35 PM FRAMER Ordering physician: JOHNNA VICTORIA Exam indication: Nonsustained atrial fibrillation Technologist: Dori TONG Interpreting physician: Marj Campo MD PATIENT: Name: MR. CATY KOHLI : 1960 Age: 64 years Gender: M [...] Doppler. PERICARDIUM There is no pericardial effusion. CONCLUSIONS: - Exam indication: Nonsustained atrial fibrillation [...] * * * Final * * * [employer] [facility] : [id number] ISUID Normal [facility] CNOVon 01-19-2025 CNOV Office Visit ([facility] ) CATY KOHLI ([id number]) 1960 M Date Time Provider Department 01/19/25 8:00 AM JOHNNA VICTORIA [facility] During your visit today, we recorded the following information about you: Pulse Blood pressure Weight Height 51/minute 128/76 102.3 kg 1.88 m Johnna Victoria APRN.[employer] 01/19/2025 9:30 AM Signed [facility] Department of Cardiovascular Medicine SECTION OF CARDIAC PACING and ELECTROPHYSIOLOGY OUTPATIENT VISIT DATE January 19, 2025 OUTPATIENT VISIT TYPE ESTABLISHED Recording using ambient [employer] software for draft documentation of the visit was discussed with the patient/authorized merchandising representative; all questions welcomed and answered. Patient/authorized merchandising representative agreed to proceed PRIMARY CARE PHYSICIAN: Tae Martinez (Tosha) [address] [place] [address] CHIEF COMPLAINT: follow up s/p direct cardioversion HISTORY OF PRESENT ILLNESS: Mr. Kohli is a 64 year old male who presents today for previously evaluated by Dr. Longo, Dr. Garcia for persistent drug refractory atrial fibrillation (h/o multiple direct cardioversion, 07-18-2022: s/p PVI, PWI, flecainide previously discontinued, reoccurrence of the arrhythmia December 2024, restarted flecainide, s/p DCC, [id number]: 2%), preserved LV systolic heart function (echo: 2021), Other PMH of hypertension, hyperlipidemia, BPH, osteoarthritis, h/o meningitis, RA, DICK, half-way anticoagulation. He extremely high functioning with ADL, no complaints, reports feeling well following his recent cardioversion. He notes that his heart rate occasionally dips into the 45 bpm range but increases appropriately with activity, reaching the 70s depending on exertion level He denies chest pain, shortness of breath, orthopnea, cough, edema, palpitations, PND, lightheadedness or syncope. 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 Osteoarthritis of both knees Other hyperlipidemia Rheumatoid arthritis (HCC) Sleep apnea 10/15/2023 Under observation for suspected coronary artery disease PAST SURGICAL HISTORY Procedure Laterality Date ARTHROSCOPY KNEE DIAGNOSTIC W/WO SYNOVIAL BX SPX Right 2013 [facility]X CARDIAC RADIOFREQUENCY ABLATION 07/18/2022 PVI/PWI (Afib) TONSILLECTOMY HX SOCIAL HISTORY Social History Tobacco Use Smoking status: Never Smokeless tobacco: Never Vaping Use Vaping status: Never Used Substance Use Topics Alcohol use: Not Currently Comment: rare Drug use: Never FAMILY HISTORY Problem Relation Age of Onset Coronary Artery Disease Father 57 smoker; mosaic worker Emphysema Paternal Grandfather ALLERGIES: ALLERGIES Allergen Reactions Penicillins Rash Sulfa (Sulfonamide * Swelling MEDICATIONS: ELIQUIS 5 mg tab(s) Take 1 tablet by mouth twice daily. ezetimibe (ZETIA) 10 mg tablet Take 1 tablet by mouth daily. flecainide (TAMBOCOR) 100 mg tablet Take 1 tablet by mouth every 12 hours. metoprolol succinate ER (TOPROL XL) 25 mg 24 hr tablet Take 1 tablet by mouth once daily. rosuvastatin (CRESTOR) 40 mg tablet Take 1 tablet by mouth daily at bedtime. nitroglycerin sublingual (NITROQUICK) 0.4 mg SL tablet Dissolve 1 tablet under the tongue every 5 minutes as needed for chest pain. If no pain relief call 911. Cholecalciferol, Vitamin D3, 50 mcg (2,000 unit) [...] by mouth once daily. REVIEW OF SYSTEMS: GENERAL: Negative for: Weight loss or gain, Fever or Chills, Weakness and Sleep difficulties. NECK: Negative for: Swelling, Pain, Stiffness RESPIRATORY: [...] Memory loss SKIN: Negative for: Rash, Itching HEMATOLOGICAL/LYMPHATIC : Negative for: Easy bruising, Easy bleeding ENDOCRINE: Negative for: Heat or Cold Intolerance, Excessive Sweating, Frequent Urination, Frequent Thirst PHYSICAL EXAMINATION: General: Well appearing, in no acute distr (more content not included)... Normal [facility] ECG COMPLETEon 01-19-2025 Atrial Rate 52 BPM [facility] Calculated P [place] 62 degrees [facility] Calculated R [place] -46 degrees [facility] Calculated T [place] 26 degrees [facility] P-R Interval 214 ms [facility] QRS Duration 110 ms [facility] QT Interval 486 ms [facility] QTC Calculation (Bazett) 451 ms [facility] Ventricular Rate 52 BPM [facility] SINUS BRADYCARDIA WI TH 1ST DEGREE AV BLOCK LEFT ANTERIOR FASCICULAR BLOCK CANNOT EXCLUDE INFERIOR MYOCARDIAL INFARCTION (MASKED BY FASCICULAR BLOCK?) , AGE UNDETERMINED ABNORMAL ECG Confirmed by MARJ CAMPO MD ([id number]) on 01/19/2025 10:43:00 AM [facility] NAME : CATY KOHLI PID : [id number] : 1960 Gender : Male Race : ORD : [id number] Procedure Date : Jan 19 2025 07:55:51 Edit Date : Jan 19 2025 10:43:01 Diagnosis: SINUS BRADYCARDIA WITH 1ST DEGREE AV BLOCK LEFT ANTERIOR FASCICULAR BLOCK CANNOT EXCLUDE INFERIOR MYOCARDIAL INFARCTION (MASKED BY FASCICULAR BLOCK?) , AGE UNDETERMINED ABNORMAL ECG Confirmed by MARJ CAMPO MD ([id number]) on 01/19/2025 10:43:00 AM Test Reason : Z00.00 Routine adult health maintenance Location : 225 : [facility] Overread By : MARJ CAMPO MD Edited By : MARJ CAMPO MD Referred By : Johnna Victoria Acquired by : id, HEART AND VASCULAR [facility] ECG COMPLETE Ventricular Rate : 5 2 BPM Atrial Rate : 52 BPM P-R Interval : 214 ms QRS Duration : 110 ms Q-T Interval : 486 ms QTC Calculation(Bazett) : 451 ms Calculated P [place] : 62 degrees Calculated R [place] : -46 degrees Calculated T [place] : 26 degrees SINUS BRADYCARDIA WITH 1ST DEGREE AV BLOCK LEFT ANTERIOR FASCICULAR BLOCK CANNOT EXCLUDE INFERIOR MYOCARDIAL INFARCTION (MASKED BY FASCICULAR BLOCK?) , AGE UNDETERMINED ABNORMAL ECG Confirmed by MARJ CAMPO MD ([id number]) on 01/19/2025 10:43:00 AM NAME : CATY KOHLI PID : [id number] : 1960 Gender : Male Race : ORD : [id number] Procedure Date : Jan 19 2025 07:55:51 Edit Date : Jan 19 2025 10:43:01 Diagnosis: SINUS BRADYCARDIA WITH 1ST DEGREE AV BLOCK LEFT ANTERIOR FASCICULAR BLOCK CANNOT EXCLUDE INFERIOR MYOCARDIAL INFARCTION (MASKED BY FASCICULAR BLOCK?) , AGE UNDETERMINED ABNORMAL ECG Confirmed by MARJ CAMPO MD ([id number]) on 01/19/2025 10:43:00 AM Test Reason : Z00.00 Routine adult health maintenance Location : 225 : [facility] Overread By : MARJ CAMPO MD Edited By : MAJR CAMPO MD Referred By : Johnna Victoria Acquired by : Clemencia rowley [facility] [id number] 01-14-2025 [id number] HNO ID: [id number] Author: TONE MESSINA RN Service: ? Author Type: Registered Nurse Type: [id number] Filed: 01/14/2025 08:59 Note Text: Patient Education Discharge Instructions for Cardioversion Your healthcare provider performed a procedure called cardioversion. Your healthcare provider used a controlled electric shock or a medicine to briefly stop all electrical activity in your heart. This helped restore your heart?s normal rhythm. Here are some instructions to follow while you recover. Home care Because cardioversion typically requires sedation, you won't be able to drive home. You will need a ride. Wait at least 24 hours before driving a car or operating heavy machinery after receiving sedating medicines. Don?t be alarmed if the skin on your chest is irritated or feels like it is sunburned. Your healthcare provider may prescribe a soothing lotion to relieve this discomfort. These minor symptoms will go away in a few days. Ask your healthcare provider about medicines to keep your heart rhythm steady. If you were prescribed medicine, take it as instructed by your healthcare provider. Don?t skip doses or take double doses. Cardioversion requires blood thinners for at least 4 weeks to prevent a delayed risk of stroke when treating atrial fibrillation or atrial flutter. Be sure you discuss which medicine you are taking to prevent stroke. Ask when you need to have your medicine levels checked, and whether you may be able to stop taking it in the future or whether it is recommended that you take it for life. Some of these blood-thinning medicines will have the dose adjusted, and interact with other medicines or foods. Your healthcare team will give you full instructions on what to watch out for. Report bleeding or symptoms of stroke immediately to your healthcare team and seek emergency medical attention. Learn to take your own pulse. Keep a record of your results. Ask your healthcare provider when you should seek emergency medical attention. He or she will tell you which pulse rate reading is dangerous. Keep in mind this procedure may need to be repeated if the abnormal heart rhythm returns. After the procedure, your healthcare provider will tell you if the treatment worked or if you will need further treatments or medication. Follow-up care Make a follow-up appointment, or as directed by our staff. When to call your healthcare provider Call 911 right away if you have: Chest pain Shortness of breath Loss of vision, speech, or strength or coordination in any body part Otherwise, call your healthcare provider immediately if you have: Fainting, dizzy, or lightheaded Chest pain with increased activity Irregular heartbeat or fast pulse Bleeding issues from blood-thinning medicines [facility] 025 ANES POSTPROC EVAL HNO ID: [id number] Author: PRABHJOT NOVOA MD Service: Anesthesiology Author Type: Anesthesiologist Type: Anesthesia Postprocedure Evaluation Filed: 01/14/2025 10:21 Note Text: POST ANESTHESIA EVALUATION NOTE : 1960 Procedure Summary Date: 01/14/25 Room / Location: AV ECHO / AV CATH Anesthesia Start: 828 Anesthesia Stop: 845 Procedure: CARDIOVERSION EXTERNAL ELECTIVE Diagnosis: Atrial fibrillation, unspecified type (HCC) (Atrial fibrillation, unspecified type (HCC) [I48.91]) Surgeons: Kwan Marie MD Responsible Provider: Prabhjot Novoa MD Anesthesia Type: general ASA Status: 3 Anesthesia Type: general Airway Type: ETT Last Vitals Vitals Value Taken Time BP 100/70 01/14/25 0910 Temp 36.1 ?C (97 ?F) 01/14/25 0844 Pulse 49 01/14/25 0911 Resp 14 01/14/25 0911 SpO2 96 % 01/14/25 0911 Vitals shown include unfiled device data. Post [...] of care. Anesthesia Observations No Documentation SIGNATURE: Prabhjot Novoa MD PATIENT NAME: Caty Kohli DATE: January 14, 2025 TIME: 10:21 AM CSN: [id number] [facility] ANES PRE-OPon 01-14-2025 ANE PRE-OP HNO ID: [id number] Author: PRABHJOT NOVOA MD Service: Anesthesiology Author Type: Anesthesiologist Type: Anesthesia Preprocedure Evaluation Filed: 01/14/2025 08:01 Note Text: ANESTHESIOLOGY DAY OF SURGERY NOTE : 1960 Procedure Information Date/Time: 01/14/25829 Procedure: CARDIOVERSION EXTERNAL ELECTIVE Location: AV ECHO / AV CATH Surgeons: Kwan Marie MD Estimated body mass index is 29.61 kg/m? as calculated from the following: Height as of 11/27/23: 188 cm (6' 2 ). Weight as of 10/15/24: 104.6 kg (230 lb 9.6 oz). Most recent hematocrit and potassium results: Hematocrit 42.2 01/05/2025 Potassium 4.4 01/05/2025 Relevant Problems ANESTHESIA (+) Sleep apnea CARDIO (+) Atrial fibrillation, persistent (HCC) (+) Essential hypertension PULMONARY (+) Sleep apnea I - PHYSICAL EVALUATION AIRWAY Patient intubated: No. Tracheostomy tube not present Mallampati: II. TM distance: >3 FB. Neck ROM: full ROM without neurological symptoms. Mouth opening: adequate. Short neck: no. Thick neck: no DENTAL II - ANESTHESIA PLAN ASA Score: 3 Anesthetic Plan: general Airway type: ETT The patient is not a current smoker. NPO Status: adequate Beta Leia Monitoring Plan Monitoring plan: standard ASA. Post Procedure Analgesic Plan Postoperative analgesic plan: multimodal analgesia. Informed Consent Anesthetic risks, benefits, alternatives, personnel and consent discussed: yes. Patient / Responsible Constitution Party agrees to proceed: yes Patient / Surrogate agrees to blood products: blood products not planned Significant changes in the patient condition since the History and Physical, not otherwise documented in primary service progress note: no. Discussed the possibility of lip / dental damage: yes No vitals data found for the desired time range. No current facility-administered medications on file as of 01/14/2025. Outpatient Medications as of 01/14/2025 Medication Sig - ELIQUIS 5 mg tab(s) Take 1 tablet by mouth twice daily. - ezetimibe (ZETIA) 10 mg tablet Take 1 tablet by mouth daily. - flecainide (TAMBOCOR) 100 mg tablet Take 1 tablet by mouth every 12 hours. - metoprolol succinate ER (TOPROL XL) 25 mg 24 hr tablet Take 1 tablet by mouth once daily. - rosuvastatin (CRESTOR) 40 mg tablet Take 1 tablet by mouth daily at bedtime. - nitroglycerin sublingual (NITROQUICK) 0.4 mg SL tablet Dissolve 1 tablet under the tongue every 5 minutes as needed for chest pain. If no pain relief call 911. - Cholecalciferol, Vitamin D3, 50 mcg (2,000 [...] obtained within 48 hours of Surgery/Procedure. SIGNATURE: Prabhjot Novoa MD PATIENT NAME: Caty Kohli DATE: January 14, 2025 TIME: 8:00 AM CSN: [id number] [facility] ECG COMPLETEon 01-14-2025 ECG COMPLETE Ventricular Rate : 4 9 BPM Atrial Rate : 49 BPM P-R Interval : 185 ms QRS Duration : 111 ms Q-T Interval : 481 ms QTC Calculation(Bazett) : 435 ms Calculated P [place] : 24 degrees Calculated R [place] : -51 degrees Calculated T [place] : 7 degrees Sinus bradycardia Inferior infarct, old Abnormal ECG Confirmed by BRETT CHRISTIAN MD ([id number]) on 01/26/2025 3:08:01 PM NAME : CATY KOHLI PID : [id number] : 1960 Gender : Male Race : ORD : [id number] Procedure Date : Jan 14 2025 08:48:20 Edit Date : Jan 26 2025 15:08:05 Diagnosis: Sinus bradycardia Inferior infarct, old Abnormal ECG Confirmed by BRETT CHRISTIAN MD ([id number]) on 01/26/2025 3:08:01 PM Test Reason : Arrhythmia Location : 300 : EKG AVCL Overread By : BRETT CHRISTIAN MD Edited By : BRETT HCRISTIAN MD Referred By : , Acquired by : VAMSI NOWAK [facility] ECG COMPLETE Ventricular Rate : 8 3 BPM Atrial Rate : 89 BPM P-R Interval : 182 ms QRS Duration : 114 ms Q-T Interval : 417 ms QTC Calculation(Bazett) : 490 ms Calculated R [place] : -54 degrees Calculated T [place] : 9 degrees Atrial flutter Incomplete left bundle branch block Inferior infarct, old Abnormal ECG Confirmed by BRETT CHRISTIAN MD ([id number]) on 01/26/2025 3:07:12 PM NAME : CATY KOHLI PID : [id number] : 1960 Gender : Male Race : ORD : [id number] Procedure Date : Jan 14 2025 07:51:18 Edit Date : Jan 26 2025 15:07:20 Diagnosis: Atrial flutter Incomplete left bundle branch block Inferior infarct, old Abnormal ECG Confirmed by BRETT CHRISTIAN MD ([id number]) on 01/26/2025 3:07:12 PM Test Reason : Pre-OP Location : 300 : EKG AVCL Overread By : BRETT CHRISTIAN MD Edited By : BRETT CHRISTIAN MD Referred By : , Acquired by : KALYN WORTHINGTON [facility] HISTORY PHYSICALon HISTORY PHYSICAL HNO ID: [id number] Author: DIANNE REED PA-C Service: ? Author Type: Physician Selector Packer Type: H&P Filed: 01/14/2025 08:07 Note Text: Preoperative HISTORY AND PHYSICAL EXAM SERVICE DATE: 01/14/2025 SERVICE TIME: 8:03 AM Assessment/Plan Afib - s/p ablation 07/2022 Had cardioversions 03/2021, 08/2021, 10/2022, 10/2023 and 11/2023. Cardiology stopped Flecainide ~10/2024 and 07/16 metoprolol, continued Eliquis. Had A-fib on [employer] 12/30/23. Now on full dose metoprolol, on flecainide and Eliquis. Denies CP, Shortness of Breath, Palpitations. Here for cardioversion today HTN - benazepril HLD - Crestor DICK - mild on testing 2020, does not use CPAP Elevated TSH - TSH on labs 01/05/25 was 10.4, T3 and T4 normal. Outside PCP aware, monitoring at this time with recheck of labs in 6 weeks per patient. Airway: METS: Do yardwork, such as raking leaves, weeding,or pushing a power mower (4.50 METs) Climb a flight of stairs or walk up a hill (5.50 METs) Patient denies any chest pain or undue shortness of breath with the above physical activity. ANESTHESIA FINDINGS: Intubation History: No history of difficult intubation Significant Anesthesia Considerations: None Airway Exam: General: Normal appearance Mallampati Score is CLASS III Neck: Normal appearance and function, Distance from hyoid to mentum during neck extension is at least 3 finger breaths Mouth: Normal tongue size and Mouth opening greater than 2 finger breaths Dentition: Implants Airway History: No abnormal airway history STOP BANG Score: DICK does not use CPAP/BiPAP Subjective: CC: Surgery Today HPI: Patient is a 64 year old male presenting to pre-anesthesia consultation. Patient is having cardioversion today. Afib - s/p ablation 07/2022 Had cardioversions 03/2021, 08/2021, 10/2022, 10/2023 and 11/2023. Cardiology stopped Flecainide ~10/2024 and 07/16 metoprolol, continued Eliquis. Had A-fib on [employer] 12/30/23. Now on full dose metoprolol, on flecainide and Eliquis. Denies CP, Shortness of Breath, Palpitations. HTN and HLD on meds. 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 Current Outpatient Medications on File Prior to Encounter Medication Sig ELIQUIS 5 mg tab(s) Take 1 tablet by mouth twice daily. ezetimibe (ZETIA) 10 mg tablet Take 1 tablet by mouth daily. flecainide (TAMBOCOR) 100 mg tablet Take 1 tablet by mouth every 12 hours. metoprolol succinate ER (TOPROL XL) 25 mg 24 hr tablet Take 1 tablet by mouth once daily. rosuvastatin (CRESTOR) 40 mg tablet Take 1 tablet by mouth daily at bedtime. nitroglycerin sublingual (NITROQUICK) 0.4 mg SL tablet Dissolve 1 tablet under the tongue every 5 minutes as needed for chest pain. If no pain relief call 911. Cholecalciferol, Vitamin D3, 50 mcg (2,000 unit) [...] Take 400 mg by mouth once daily. ALLERGIES Allergen Reactions Penicillins Rash Sulfa (Sulfonamide * Swelling REVIEW OF SYSTEMS GENERAL: No weight loss, malaise or fevers NEURO: No history of headaches, syncope, paralysis, seizures or tremors RESPIRATORY: Negative for cough, hemoptysis, wheezing, COPD, dyspnea or shortness of breath CARDIOVASCULAR: See HPI GI: No nausea, vomiting, or diarrhea : No history of dysuria, frequency or incontinence ENDOCRINE: Negative for cold or heat intolerance, polyuria, polydipsia and goiter HEMATOLOGY/LYMPHOLOGY: Negative for prolonged bleeding, bruising easily or swollen nodes SKIN: Negative for rashes Objective HR 75 BP 120/86 RR 16 SpO2 97% PHYSICAL EXAM: The remainder of the physical exam is noncontributory. GENERAL: Alert and oriented, No acute distress, Healthy appearance (more content not included)... [facility] OPERATIVE NOon 01-14-2025 OPERATIVE NO HNO ID: [id number] Author: KWAN MARIE MD Service: Cardiovascular Medicine Author Type: Physician Type: Operative Report Filed: 01/14/2025 08:40 Note Text: PROCEDURE NOTE: CARDIOVERSION The risks, benefits, alternatives, and personnel discussed with patient or merchandising representative who consents to the procedure. UNIVERSAL PROTOCOL / SAFETY CHECKLIST: Procedure to be performed: DC cardioversion. Sign in Communication: Completed. Time Out: Team Confirms the Correct Patient, Correct Procedure, Correct Site and Site Marking, Correct Position (if applicable). Time: 8:35 am, 8:38 am. Affirmation of Time Out: YES. Sign Out Discussion: Completed. Pre-operative diagnosis: Persistent A-Fib Post-operative diagnosis: Sinus bradycardia Procedure type: DC cardioversion Staff: Kwan Marie MD Brief History: Persistent Atrial Fibrillation The patient was placed on a monitor and supplemental oxygen. Adjunct airway equipment, suction and other necessary items were prepared. The patient was sedated with propofol. Following sedation patient was cardioverted at 250 J x 1, followed by 300 J x 1 with conversion to sinus bradycardia. A post conversion EKG was completed. The patient tolerated the procedure well. Assessment: No immediate complications post-procedure Plan/Recommendations: Follow-up in [facility] as scheduled. Kwan Marie MD Cardiology staff pager [phone] January 14, 2025 8:39 AM Normal [facility] CNPNon 01-07-2025 CNPN Telephone (CARDAV) CATY KOHLI ([id number]) 1960 M Date Time Provider Department 01/07/25 JOHNNA VICTORAI During your visit today, we recorded the following information about you: Clay New 01/07/2025 12:00 PM Signed 01/07/25 7:11 AM Note I reviewed the T3, T4 normal level. Suspect primary hypothyroid for patient. I can start levothyroxine or he can call his primary care to start the medication (I am unable to do, since he not in the [facility] system). Then we can maintain appointment for cardioversion as scheduled. thank you Johnna Victoria APRN.[employer] Confirmed via [employer] with patient his availability for the now rescheduled cardioversion to 01/14/2025. Patient is agreeable to the date, will be performed by Dr. Kwan Marie at [facility]. Patient confirms compliance with Eliquis. Has an existing office [employer] appointment with Johnna Victoria on 01/20/2025. 01/14/2025 Procedure instructions submitted via [employer] for patient's review. Johnna's above notation was shared in [employer] with the patient, he is aware an office nurse will be contacting him to review. Clay New 01/07/2025 12:44 PM Signed Johnna Victoria APRN.CNP 01/07/25 12:30 PM Note I was able to discuss with patient lab results, and discussed with the primary care physician also his nursing staff. They plan to recheck the level in six weeks, and if abnormal then treat accordingly. I recommended to the patient to keep cardioversion for January 14, 2025. Verbal feedback completed. Johnna Victoria APRN.[employer] Allergies As of Date: 01/07/2025 Noted Allergy Reaction PENICILLINS 03/20/2019 2 - Rash SULFA (SULFONAMIDE ANTIBIOTICS) 03/20/2019 7 - Swelling Date Reviewed: 10/15/2024 Reviewed by: Soumya Hernandez MA - Fully Assessed Reason for Visit: Procedure [88] Cmt: Cardioversion Prescriptions as of 01/07/2025 - ELIQUIS 5 mg tab(s) Take 1 tablet by mouth twice daily. - ezetimibe (ZETIA) 10 mg tablet Take 1 tablet by mouth daily. - flecainide (TAMBOCOR) 100 mg tablet Take 1 tablet by mouth every 12 hours. - metoprolol succinate ER (TOPROL XL) 25 mg 24 hr tablet Take 1 tablet by mouth once daily. - rosuvastatin (CRESTOR) 40 mg tablet Take 1 tablet by mouth daily at bedtime. - nitroglycerin sublingual (NITROQUICK) 0.4 mg SL tablet Dissolve 1 tablet under the tongue every 5 minutes as needed for chest pain. If no pain relief call 911. - Cholecalciferol, Vitamin D3, 50 mcg (2,000 [...] once daily. Problem List As Of Date 01/07/2025 Noted Resolved Essential hypertension [I10] 04/08/2018 Under observation for suspected coronary artery* Atrial fibrillation, persistent (HCC) [I48.19] Other hyperlipidemia [E78.49] Elevated TSH [R79.89] Pain in left knee [M25.562] 07/17/2021 Abnormal cardiovascular stress test [R94.39] 12/19/2021 Sleep apnea [G47.30] 10/15/2023 Encounter Status:Closed by CLAY NEW on 01/07/25 Normal [facility] No Panel Informationon 01-06 Interpretation and review of laboratory results Normal [facility] T3, FREEon 01-06-2025 Free T3 [Mass/Vol] 3.4 pg/mL 2.3 - 4.1 pg/mL [facility] T4 FREE/FREE THYROXINEon Free T4 [Mass/Vol] 0.9 ng/dL 0.9 - 1.7 ng/dL [facility] CBC panel Auto (Bld)on 01-05 Erythrocyte distribution width (RBC) [Ratio] 12.7 % Normal 11.5-15.0 [facility] Comment on above: Order Comment: Speci men Type: BLOOD SPECIMEN Ordering Facility: [facility] Address: [address] [place] [address] Performed By: #### 3 051-0, 3024-7, 3015-3 #### [facility] CLIA [id number] [address] [place] [address] [place] Hematocrit (Bld) [Volume fraction] 42.2 % Normal 39.0-51.0 [facility] Comment on above: Order Comment: Speci men Type: BLOOD SPECIMEN Ordering Facility: [facility] Address: [address] [place] [address] Performed By: #### 3 051-0, 3024-7, 3 #### [facility] CLIA [id number] [address] [place] [address] [place] Hemoglobin (Bld) [Mass/Vol] 14.3 g/dL Normal 13.0-17.0 [facility] Comment on above: Order Comment: Speci men Type: BLOOD SPECIMEN Ordering Facility: [facility] Address: [address] [place] [address] Performed By: #### 3 051-0, 3024-7, 3015-3 #### [facility] CLIA [id number] [address] [place] [address] [place] MCH (RBC) [Entitic mass] 30.4 pg Normal 26.0-34.0 [facility] Comment on above: Order Comment: Speci men Type: BLOOD SPECIMEN Ordering Facility: [facility] Address: [address] [place] [address] Performed By: #### 3 051-0, 7, 3015-3 #### [facility] CLIA [id number] [address] [place] [address] [place] MCHC (RBC) [Mass/Vol] 33.9 g/dL Normal 30.5-36.0 [facility] Comment on above: Order Comment: Speci men Type: BLOOD SPECIMEN Ordering Facility: [facility] Address: [address] [place] [address] Performed By: #### 3 051-0, 7, 3015-3 #### [facility] CLIA [id number] [address] [place] [address] [place] MCV (RBC) [Entitic vol] 89.6 fL Normal 80.0-100.0 [facility] Comment on above: Order Comment: Speci men Type: BLOOD SPECIMEN Ordering Facility: [facility] Address: [address] [place] [address] Performed By: #### 3 051-0, 7, 3015-3 #### [facility] CLIA [id number] [address] [place] [address] [place] Nucleated RBC (Bld) [#/Vol] 10*3/uL Normal <0.01 [facility] Comment on above: Order Comment: Speci men Type: BLOOD SPECIMEN Ordering Facility: [facility] Address: [address] [place] [address] Performed By: #### 3 051-0, 3027, 3015-3 #### [facility] CLIA [id number] [address] [place] [address] [place] Platelet mean volume (Bld) [Entitic vol] 9.8 fL Normal 9.0-12.7 [facility] Comment on above: Order Comment: Speci men Type: BLOOD SPECIMEN Ordering Facility: [facility] Address: [address] [place] [address] Performed By: #### 3 051-0, 3024-7, 3016-3 #### [facility] CLIA [id number] [address] [place] [address] [place] Platelets (Bld) [#/Vol] 246 10*3/uL Normal 150-400 [facility] Comment on above: Order Comment: Speci men Type: BLOOD SPECIMEN Ordering Facility: [facility] Address: [address] [place] [address] Performed By: #### 3 051-0, 302-7, 6-3 #### [facility] CLIA [id number] [address] [place] [address] [place] RBC (Bld) [#/Vol] 4.71 10*6/uL Normal 4.20-6.00 [facility] Comment on above: Order Comment: Speci men Type: BLOOD SPECIMEN Ordering Facility: [facility] Address: [address] [place] [address] Performed By: #### 3 051-0, 302-7, 3016-3 #### [facility] CLIA [id number] [address] [place] [address] [place] WBC (Bld) [#/Vol] 8.80 10*3/uL Normal 3.70-11.00 [facility] Comment on above: Order Comment: Speci men Type: BLOOD SPECIMEN Ordering Facility: [facility] Address: [address] [place] [address] Performed By: #### 3 051-0, 3024-7, 3016-3 #### [facility] CLIA [id number] [address] [facility] [place] [address] [place] Comprehensive metabolic 2000 panelon 01-05-2025 Albumin [Mass/Vol] 4.3 g/dL Normal 3.9-4.9 [facility] Comment on above: Order Comment: Speci men Type: BLOOD SPECIMEN Ordering Facility: [facility] Address: [address] [place] [address] Performed By: #### 2 4323-8, #### [facility] CLIA [id number] [address] [place] [address] 19883 ALP [Catalytic activity/Vol] 58 U/L Normal 38-113 [facility] Comment on above: Order Comment: Speci men Type: BLOOD SPECIMEN Ordering Facility: [facility] Address: [address] [place] [address] Performed By: #### 2 4323-8, #### [facility] CLIA [id number] [address] [place] [address] 49299 ALT [Catalytic activity/Vol] 28 U/L Normal 10-54 [facility] Comment on above: Order Comment: Speci men Type: BLOOD SPECIMEN Ordering Facility: [facility] Address: [address] [place] [address] Performed By: #### 2 4323-8, #### [facility] CLIA [id number] [address] [place] [address]21 Anion gap [Moles/Vol] 9 mmol/L Normal 8-15 [facility] Comment on above: Order Comment: Speci men Type: BLOOD SPECIMEN Ordering Facility: [facility] Address: [address] [place] [address] Performed By: #### 2 4323-8, #### [facility] CLIA [id number] [address] [place] [address] 28528 AST [Catalytic activity/Vol] 28 U/L Normal 14-40 [facility] Comment on above: Order Comment: Speci men Type: BLOOD SPECIMEN Ordering Facility: [facility] Address: [address] [place] [address] Performed By: #### 2 4323-02, #### [facility] CLIA [id number] [address] [place] [address] Bilirubin [Mass/Vol] 0.4 mg/dL Normal 0.2-1.3 [facility] Comment on above: Order Comment: Speci men Type: BLOOD SPECIMEN Ordering Facility: [facility] Address: [address] [place] [address] Performed By: #### 2 8, #### [facility] CLIA [id number] [address] [place] [address]753 Calcium [Mass/Vol] 9.3 mg/dL Normal 8.5-10.2 [facility] Comment on above: Order Comment: Speci men Type: BLOOD SPECIMEN Ordering Facility: [facility] Address: [address] [place] [address] Performed By: #### 2 8, #### [facility] CLIA [id number] [address] [place] [address]1887 Chloride [Moles/Vol] 104 mmol/L Normal 98-107 [facility] Comment on above: Order Comment: Speci men Type: BLOOD SPECIMEN Ordering Facility: [facility] Address: [address] [place] [address] Performed By: #### 2 8, #### [facility] CLIA [id number] [address] [place] [address]457 CO2 [Moles/Vol] 25 mmol/L Normal 22-30 [facility] Comment on above: Order Comment: Speci men Type: BLOOD SPECIMEN Ordering Facility: [facility] Address: [address] [place] [address] Performed By: #### 2 4328, #### [facility] CLIA [id number] [facility] [place] [address] Creatinine [Mass/Vol] 0.69 mg/dL Low 0.73-1.22 [facility] Comment on above: Order Comment: [place] Type: BLOOD SPECIMEN Ordering Facility: [facility] Address: [address] [place] [place] [phone] Performed By: #### 2 4323-8, #### [facility] CLIA [id number] [address] [place] [address] Creatinine and Glomerular filtration rate.predicted panel (S/P/Bld) 102 mL/min/1.73m??? Normal >=60 [facility] Comment on above: Order Comment: [place] Type: BLOOD SPECIMEN Ordering Facility: [facility] Address: [address] [place] [address] Result Comment: June mated Glomerular Filtration Rate [...] reflect actual GFR. Performed By: #### 2 4323-8, #### [facility] CLIA [id number] [address] [place] [address] Glucose [Mass/Vol] 93 mg/dL Normal 74-99 [facility] Comment on above: Order Comment: [place] Type: BLOOD SPECIMEN Ordering Facility: [facility] Address: [address] [phone] Result Comment: The [place] [...] Care. 2016.39(Suppl 1). Performed By: #### 2 4323-02, #### [facility] CLIA [id number] [address] [place] [address] Potassium [Moles/Vol] 4.4 mmol/L Normal 3.7-5.1 [facility] Comment on above: Order Comment: Speci men Type: BLOOD SPECIMEN Ordering Facility: [facility] Address: [address] [place] [address] Performed By: #### 2 4323-02, #### [facility] CLIA [id number] [address] [place] [address]167 Protein [Mass/Vol] 7.1 g/dL Normal 6.3-8.0 [facility] Comment on above: Order Comment: Speci men Type: BLOOD SPECIMEN Ordering Facility: [facility] Address: [address] [place] [address] Performed By: #### 2 4323-02, #### [facility] CLIA [id number] [address] [place] [address]77 Sodium [Moles/Vol] 138 mmol/L Normal 136-144 [facility] Comment on above: Order Comment: Speci men Type: BLOOD SPECIMEN Ordering Facility: [facility] Address: [address] [place] [address] Performed By: #### 2 4323-02, #### [facility] CLIA [id number] [address] [place] [address]315 Urea nitrogen [Mass/Vol] 14 mg/dL Normal 9-24 [facility] Comment on above: Order Comment: Speci men Type: BLOOD SPECIMEN Ordering Facility: [facility] Address: [address] [place] [address] Performed By: #### 2 4323-02, #### [facility] CLIA [id number] [address] [place] [address] Magnesium SerPl-mCncon 01-05 Magnesium [Mass/Vol] 2.2 mg/dL Normal 1.7-2.3 [facility] Comment on above: Order Comment: Speci men Type: BLOOD SPECIMEN Ordering Facility: [facility] Address: [address] [place] [address] Performed By: #### 2 4323-8, #### [facility] CLIA [id number] [address] [place] [address] T3Free SerPl-mCncon 01-06-20 25 Free T3 [Mass/Vol] 3.4 pg/mL Normal 2.3-4.1 [facility] Comment on above: Order Comment: Speci men Type: BLOOD SPECIMEN Ordering Facility: [facility] Address: [address] [place] [address] Performed By: #### 3 051-0, 3024-7, 3016-3 #### [facility] CLIA [id number] [address] [place] [address] [place] T4 Free SerPl-mCncon 025 Free T4 [Mass/Vol] 0.9 ng/dL Normal 0.9-1.7 [facility] Comment on above: Order Comment: Speci men Type: BLOOD SPECIMEN Ordering Facility: [facility] Address: [address] [place] [address] Performed By: #### 3 051-0, 3024-7, 3016-3 #### [facility] CLIA [id number] [address] [place] [address] [place] TSH SerPl-aCncon 01-05-2025 TSH Qn 10.400 m[IU]/L High 0.270-4.200 [facility] Comment on above: Order Comment: Speci men Type: BLOOD SPECIMEN Ordering Facility: [facility] Address: [address] [place] [address] Performed By: #### 3 051-0, 3024-7, 3016-3 #### [facility] CLIA [id number] [address] [place] [address] [place] 12-29-2024 CNPN Telephone (CAEPAV) CATY KOHLI ([id number]) 1960 M Date Time Provider Department 12/29/24 JESSE LONGO CAEPAV During your visit today, we recorded the following information about you: Luz Marina RN 12/29/2024 4:04 PM Signed Pt calling [facility] Last appointment on 10/15/24, provider left as of 12/17/24 States has seen [employer] States last refill of metoprolol succinate ER did not go through to his pharmacy, told to him by [facility] Today back in Afib around 11:30am, has [employer] watch HR fluctuates from 68 to 136 bpm- Is driving now but did check HR, now it is 99 bpm Denies dizziness/sob/chest pain/palpitations Takes Elliauis 5 mg twice daily Metroprolol succinate ER, 12.5 mg at bedtime (dose was decreased on 01/08/25 from 25 mg's ) States Flecainide was discontinued a while ago- [facility] provider told him to stop taking it / but it is on his med list Will need an appointment with EP since Dr. Carcamo is not longer his provider/ left practice Please call him back to schedule an appointment He states he is willing to see anyone/ has seen Layla Pt can be reached at: [phone], ok to leave a message Johnna Victoria APRN.CNP 12/29/2024 6:05 PM Signed I reviewed the message I called the patient to discuss. He still has flecainide left from before. Recommendation: -increase the metoprolol 25mg XL daily -tonight take flecainide 150mg x1 -tomorrow morning restart flecainide 100mg BID -if this puts him back in rhythm let us know -I will have secretaries call him to arrange for a follow up appointment, I will FYI Dr. Garcia also if he wants to schedule cardioversion after 1-2 weeks if out of rhythm still -medication list updated, thankful for the call Johnna Victoria APRN.CNP Secretaries: please schedule follow up appointment Ciera Parisi RN 01/04/2025 10:48 AM Signed Patient calling. Please see below recommendations from Johnna Victoria on 12/29. He made the recommendation medication changes. He is still in A fib. He has an appt on 04/05, needs appt to be seen sooner as recommended in Johnna's note below. Mild shortness of breath with exertion. He is not feeling his best but able to do his normal routine, working BP 104-120's/70's-80's HR 80's-120 States medications never convert him. Please call regarding appt and possible cardioversion Johnna Victoria APRN.CNP 01/04/2025 9:15 PM Signed I reviewed the message and discussed with Dr. Garcia Schedule the patient for a cardioversion, and follow up appointment with EP ROSE MARIE or new process engineering technician after the cardioversion. Thank you EL Devi Marisol, APRN.CNP 01/04/2025 9:15 PM Signed Addended by: JOHNNA VICTORIA on: 01/04/2025 09:15 PM Modules accepted: Laurita Cantu 01/06/2025 10:06 AM Signed Patient has S/P DCC visit with Sha Victoria scheduled for 01/20/25 Schedulers have placed recall letter for patient to establish care with new EP MD in February once schedules are open for scheduling Allergies As of Date: 12/29/2024 Noted Allergy Reaction PENICILLINS 03/20/2019 2 - Rash SULFA (SULFONAMIDE ANTIBIOTICS) 03/20/2019 7 - Swelling Date Reviewed: 10/15/2024 Reviewed by: Soumya Hernandez MA - Fully Assessed Reason for Visit: A-fib [167] Primary Visit Diagnosis:Atrial fibrillation, persistent (HCC) [I48.19] [I48.19] Order(s):flecainide (TAMBOCOR) 100 mg tabletTake 1 tablet by mouth every 12 hours.Disp: 180 tabletRfl: metoprolol succinate ER (TOPROL XL) 25 mg 24 hr tabletTake 1 tablet by mouth once daily.Disp: Rfl: CARDIOVERSION, ELECTIVE, ELECTRICAL [85960FCB] Order #: [id number]: 1 MAGNESIUM [SQMG1] Order #: [id number] FUTURE COMPLETE BLOOD COUNT [SQCBC] Order #: [id number] FUTURE COMPREHENSIVE METABOLIC PANEL [SQCMP] Order #: [id number] FUTURE THYROID STIMULATING HORMONE [SQTSH] Order #: [id number] FUTURE Prescriptions as of 01/06/2025 - ELIQUIS 5 mg tab(s) Take 1 tablet by mouth twice daily. - ezetimibe (ZETIA) 10 mg tablet Take 1 tablet by mouth daily. - flecainide (TAMBOCOR) 100 mg tablet Take 1 tablet by mouth every 12 hours. - metoprolol succinate ER (TOPROL XL) 25 mg 24 hr tablet Take 1 tablet by mouth once daily. - rosuvastatin (CRESTOR) 40 mg tablet Take 1 tablet by mouth daily at bedtime. - nitroglycerin sublingual (NITROQUICK) 0.4 mg SL tablet Dissolve 1 tablet under the tongue every 5 minutes as needed for chest pain. If no pain relief call 911. - Cholecalciferol, Vitamin D3, 50 mcg (2,000 [...] glucosamine/chondr prieto A sod (OSTEO BI-FLEX ORAL) Ta (more content not included)... Normal [facility] CNOVon 10-15-2024 CNOV Office Visit (CAEPLN ) CATY KOHLI ([id number]) 1960 M Date Time Provider Department 10/15/24 8:30 AM JESSE LONGO During your visit today, we recorded the following information about you: Pulse Blood pressure Weight 53/minute 112/69 104.6 kg Jesse Longo MD 10/15/2024 8:38 AM Signed [facility] OUTPATIENT VISIT DATE October 15, 2024 OUTPATIENT VISIT TYPE ESTABLISHED PRIMARY CARE PHYSICIAN: Tae Martinez ([facility]) [address] [place] [address] CHIEF COMPLAINT: Persistent afib. HISTORY OF PRESENT ILLNESS: Mr. Kohli is a 64 year old male with pers-AF s/p PVI. No new palpitation or chest pain. Presents IMPRESSION: Persistent AF: S/p AF ablation. Feels better in sinus rhythm. On flecainide and low dose metoprolol. Will d/c flecainide today for LAFB and ME of 200ms. F/u in 1 year PLAN AND RECOMMENDATIONS: Persistent AF: S/p AF ablation. Feels better in sinus rhythm. On flecainide and low dose metoprolol. Will d/c flecainide today for LAFB and ME of 200ms. F/u in 1 year PHYSICAL EXAMINATION: Pulse (!) 54 Wt 104.6 kg (230 lb 9.6 oz) BMI 29.61 kg/m? HEENT: normocephalic, EOMI Heart: regular rhythm Lungs: clear to auscultation Abdomen: bowel sounds present Extremities: no edema Musculoskeletal: chest wall nontender Neurological: alert and oriented Psychiatric: appropriate and cooperative Skin: no rash, cellulitis or lesions appreciated CARDIOVASCULAR MEDICINE TESTING: I have personally reviewed ECG Last EKG Result Conclusion ECG COMPLETE Collected: 10/15/2024 8:25 AM (Preliminary result) Impression: SINUS BRADYCARDIA LEFT ANTERIOR FASCICULAR BLOCK CANNOT EXCLUDE INFERIOR MYOCARDIAL INFARCTION (MASKED BY FASCICULAR BLOCK?) , AGE UNDETERMINED CANNOT EXCLUDE ANTERIOR MYOCARDIAL INFARCTION , AGE UNDETERMINED ABNORMAL ECG PAST CARDIAC HISTORY: See below PAST MEDICAL HISTORY Diagnosis Date Atrial fibrillation (HCC) BPH (benign prostatic hyperplasia) Elevated TSH Essential hypertension Meningitis spinal (HCC) 1964 Osteoarthritis of both knees Other hyperlipidemia Rheumatoid arthritis (HCC) Sleep apnea 10/15/2023 Under observation for suspected coronary artery disease PAST SURGICAL HISTORY Procedure Laterality Date ARTHROSCOPY KNEE DIAGNOSTIC W/WO SYNOVIAL BX SPX Right 2013 SHX CARDIAC RADIOFREQUENCY ABLATION 07/18/2022 PVI/PWI (Afib) TONSILLECTOMY HX Social History Tobacco Use Smoking status: Never Smokeless tobacco: Never Vaping Use Vaping status: Never Used Substance Use Topics Alcohol use: Not Currently Comment: rare Drug use: Never FAMILY HISTORY Problem Relation Age of Onset Coronary Artery Disease Father 57 smoker; 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 ELIQUIS 5 mg tab(s) Take 1 tablet by mouth twice daily. rosuvastatin (CRESTOR) 40 mg tablet Take 1 tablet by mouth daily at bedtime. flecainide (TAMBOCOR) 100 mg tablet take 1 tablet by mouth two times a day. metoprolol succinate ER (TOPROL XL) 25 mg 24 hr tablet Take 0.5 tablets by mouth daily at bedtime. nitroglycerin sublingual (NITROQUICK) 0.4 mg SL tablet Dissolve 1 tablet under the tongue every 5 minutes as needed for chest pain. If no pain relief call 911. Cholecalciferol, Vitamin D3, 50 mcg (2,000 unit) [...] mouth once daily. Allergies As of Date: 10/15/2024 Noted Allergy Reaction PENICILLINS 03/20/2019 2 - Rash SULFA (SULFONAMIDE ANTIBIOTICS) 03/20/2019 7 - Swelling Date Reviewed: 10/15/2024 Reviewed by: Soumya Hernandez MA - Fully Assessed Reason for Visit: Atrial Fibrillation [513] Primary Visit Diagnosis:Atrial fibrillation, persistent (HCC) [I48.19] Order(s):ECG COMPLETE [ECG01] Order #: [id number] ECG COMPLETE [ECG01] Order #: [id number]. #:[id number]--HCEQmon flecainide (TAMBOCOR) 100 mg tabletTake 1 tablet by mouth two times a day.Disp: 180 tabletRfl: 3 Prescriptions as of 10/15/2024 - flecainide (TAMBOCOR) 100 mg tablet Take 1 tablet by mouth two times a day. - ezetimibe (ZETIA) 10 mg tablet Take 1 tablet by mouth daily. - ELIQUIS 5 mg tab(s) Take 1 tablet by mouth twice daily. - rosuvastatin (CRESTOR) 40 m (more content not included)... Normal [facility] ECG COMPLETEon 10-15-2024 ECG COMPLETE Ventricular Rate : 5 4 BPM Atrial Rate : 54 BPM P-R Interval : 200 ms QRS Duration : 116 ms Q-T Interval : 454 ms QTC Calculation(Bazett) : 430 ms Calculated P [place] : 61 degrees Calculated R [place] : -53 degrees Calculated T [place] : 23 degrees SINUS BRADYCARDIA LEFT ANTERIOR FASCICULAR BLOCK CANNOT EXCLUDE INFERIOR MYOCARDIAL INFARCTION (MASKED BY FASCICULAR BLOCK?) , AGE UNDETERMINED CANNOT EXCLUDE ANTERIOR MYOCARDIAL INFARCTION , AGE UNDETERMINED ABNORMAL ECG Confirmed by MD GARCIA ANISH ([id number]) on 10/15/2024 1:05:20 PM NAME : CATY KOHLI PID : [id number] : 1960 Gender : Male Race : ORD : [id number] Procedure Date : Oct 15 2024 08:25:23 Edit Date : Oct 15 2024 13:05:26 Diagnosis: SINUS BRADYCARDIA LEFT ANTERIOR FASCICULAR BLOCK CANNOT EXCLUDE INFERIOR MYOCARDIAL INFARCTION (MASKED BY FASCICULAR BLOCK?) , AGE UNDETERMINED CANNOT EXCLUDE ANTERIOR MYOCARDIAL INFARCTION , AGE UNDETERMINED ABNORMAL ECG Confirmed by MD GARCIA ANISH ([id number]) on 10/15/2024 1:05:20 PM Test Reason : I48.19 Atrial fibrillation, persistent (HCC) Location : 145 : LOCARD Overread By : MD GARCIA ANISH Edited By : MD GARCIA ANISH Referred By : Donta Acquired by : Clmeencia conteh [facility] ANES POSTPROC EVALon 024 ANES POSTPROC EVAL HNO ID: [id number] Author: ANTOINETTE COSBY MD Service: Critical Care Author Type: Anesthesiologist Type: Anesthesia Postprocedure Evaluation Filed: 11/27/2023 10:50 Note Text: POST ANESTHESIA EVALUATION NOTE : 1960 Procedure Summary Date: 11/27/23 Room / Location: CATH07 / CATH Anesthesia Start: 934 Anesthesia Stop: 941 [...] November 27, 2023 TIME: 10:49 AM CSN: [id number] [facility] ANES PRE-OPon 11-27-2023 ANES PRE-OP HNO ID: [id number] Author: ANTOINETTE COSBY MD Service: Critical Care Author Type: Anesthesiologist Type: Anesthesia Preprocedure Evaluation Filed: 11/27/2023 08:37 Note Text: ANESTHESIOLOGY DAY OF SURGERY NOTE : 1960 Procedure Information Date/Time: 11/27/23929 Procedure: CARDIOVERSION EXTERNAL ELECTIVE Location: [facility] CATH07 / [facility] CATH Surgeons: Archana Harkins MD Estimated body [...] November 27, 2023 TIME: 8:36 AM CSN: [id number] Normal [facility] BRIEF OP NOTon 11-27-2023 BRIEF OP NOT HNO ID: [id number] Author: ARCHANA HARKINS MD Service: Electrophysiology Author Type: Physician Type: Brief Op Note Filed: 11/27/2023 09:52 Note Text: Uneventful cardioversion of AF to sinus bradycardia under MAC. Normal [facility] ECG COMPLETEon 11-27-2023 ECG COMPLETE Ventricular Rate : 4 4 BPM Atrial Rate : 44 BPM P-R Interval : 203 ms QRS Duration : 110 ms Q-T Interval : 486 ms QTC Calculation(Bazett) : 416 ms Calculated P [place] : 12 degrees Calculated R [place] : -47 degrees Calculated T [place] : -10 degrees Sinus bradycardia Abnormal R-wave progression, late transition Inferior infarct, old Abnormal ECG Confirmed by ARCHANA HARKINS M.D. ([id number]) on 12/01/2023 9:51:31 PM NAME : CATY KOHLI PID : [id number] : 1960 Gender : Male Race : ORD : [id number] Procedure Date : Nov 27 2023 09:40:31 Edit Date : Dec 01 2023 21:51:33 Diagnosis: Sinus bradycardia Abnormal R-wave progression, late transition Inferior infarct, old Abnormal ECG Confirmed by ARCHANA HARKINS M.D. ([id number]) on 12/01/2023 9:51:31 PM Test Reason : Arrhythmia Location : 400 : EKG 24 Overread By : ARCHANA HARKINS M.D. Edited By : ARCHANA HARKINS M.D. Referred By : , Acquired by : [facility], [facility] ECG COMPLETE Ventricular Rate : 8 4 BPM Atrial Rate : 0 BPM P-R Interval : 191 ms QRS Duration : 113 ms Q-T Interval : 412 ms QTC Calculation(Bazett) : 488 ms Calculated R [place] : -54 degrees Calculated T [place] : 11 degrees Atrial fibrillation Incomplete left bundle branch block Inferior infarct, old Baseline wander in lead(s) V1 Abnormal ECG Confirmed by ARCHANA HARKINS M.D. ([id number]) on 12/01/2023 9:47:55 PM NAME : CATY KOHLI PID : [id number] : 1960 Gender : Male Race : ORD : [id number] Procedure Date : Nov 27 2023 08:25:30 [...] Referred By : , Acquired by : [facility], [facility] NURSING PROGon 11-27-2023 NURSING PROG HNO ID: [id number] Author: TWILA PIERRE RN Service: Nursing Author Type: Registered Nurse Type: Nursing Progress Note Filed: 11/27/2023 11:06 Note Text: Nursing Progress Note Topic of Note: post procedure PATIENT NAME: Caty GOODN: [id number] Patient Location: COLOR DIPPER POOL/ COLOR DIPPER POOL Room: COLOR DIPPER POOL ( INVASIVE CARDIOLOGY) Pt in ICRR [...] This note was completed by: Twila Pierre [facility] ANES POSTPROC EVALon 024 ANES POSTPROC EVAL HNO ID: [id number] Author: JEMMA DUKE APRN.CRNA Service: Anesthesiology Author Type: Nurse Radio Operator Type: Anesthesia Postprocedure Evaluation Filed: 10/15/2023 11:03 Note Text: POST ANESTHESIA EVALUATION NOTE : 1960 Procedure Summary Date: 10/15/23 Room / Location: CATH07 / CATH Anesthesia Start: 1055 Anesthesia Stop: 110 Procedure: CARDIOVERSION EXTERNAL ELECTIVE Diagnosis: Atrial fibrillation, [...] Anesthesia Observations No Documentation SIGNATURE: Jemma Duke APRN.PUBLICITY MANAGER PATIENT NAME: Caty Kohli DATE: October 15, 2023 TIME: 11:03 AM CSN: [id number] [facility] ANES PRE-OPon 10-15-2023 ANES PRE-OP HNO ID: [id number] Author: BARBY MARTINEZ MD Service: Anesthesiology Author [...] October 15, 2023 TIME: 9:22 AM CSN: [id number] Normal [facility] ECG COMPLETEon 10-15-2023 ECG COMPLETE Ventricular Rate : 9 0 BPM Atrial Rate : 100 BPM P-R Interval : 145 ms QRS Duration : 96 ms Q-T Interval : 376 ms QTC Calculation(Bazett) : 460 ms Calculated R [place] : -46 degrees Calculated T [place] : 13 degrees Atrial fibrillation Left anterior fascicular block Abnormal R-wave progression, late transition Baseline wander in lead(s) V1 Abnormal ECG Confirmed by LYNDA TELLEZ MD ([id number]) on 10/28/2023 11:43:15 PM NAME : CATY KOHLI PID : [id number] : 1960 Gender : Male Race : ORD : [id number] Procedure Date : Oct 15 2023 09:49:49 Edit Date : Oct 28 2023 23:43:17 Diagnosis: Atrial fibrillation Left anterior fascicular block Abnormal R-wave progression, late transition Baseline wander in lead(s) V1 Abnormal ECG Confirmed by LYNDA TELLEZ MD ([id number]) on 10/28/2023 11:43:15 PM Test Reason : Pre-OP Location : 400 : EK 19 Overread By : LYNDA TELLEZ MD Edited By : LYNDA TELLEZ MD Referred By : , Acquired by : Clemencia SANDRA [facility] EKGon 10-15-2023 Electrocardiogram Ventricular Rate : 6 1 BPM Atrial Rate : 61 BPM P-R Interval : 163 ms QRS Duration : 102 ms Q-T Interval : 434 ms QTC Calculation(Bazett) : 438 ms Calculated P [place] : -1 degrees Calculated R [place] : -45 degrees Calculated T [place] : 7 degrees Sinus rhythm Abnormal R-wave progression, late transition Inferior infarct, old Abnormal ECG Confirmed by LYNDA TELLEZ MD ([id number]) on 10/28/2023 11:46:31 PM NAME : CATY KOHLI PID : [id number] : 1960 Gender : Male Race : ORD : Procedure Date : Oct 15 2023 11:01:54 Edit Date : Oct 28 2023 23:46:35 Diagnosis: Sinus rhythm Abnormal R-wave progression, late transition Inferior infarct, old Abnormal ECG Confirmed by LYNDA TELLEZ MD ([id number]) on 10/28/2023 11:46:31 PM Test Reason : Location : 400 : [facility] 19 Overread By : LYNDA TELLEZ MD Edited By : LYNDA TELLEZ MD Referred By : , Acquired by : Clemencia [facility] HISTORY PHYSICALon HISTORY PHYSICAL HNO ID: [id number] Author: NAIF ROY APRN.[employer], DNP Service: Cardiovascular Disease Author Type: Nurse [...] Palpable History of TIA: No History of NE: No Diabetes: No History of Bleeding Issues: [...] which included preparing to see the patient, afmy-iq-frhl patient care, completing clinical documentation, obtaining and/or reviewing separately obtained history, performing a medically appropriate examination, counseling and educating the patient/family/caregive r, and ordering medications, tests, or procedures. SIGNATURE: Naif Roy APRN.TIFFANIE, JIMY PATIENT NAME: Caty Kohli DATE: October 15, 2023 TIME: 10:10 AM PAGER: Clemencia [facility] NURSING PROGon 10-15-2023 NURSING PROG HNO ID: [id number] Author: TODD ARNOLD RN Service: ? Author Type: Registered Nurse [...] feeling dizzy or lightheaded. 1215 Transported to [facility] via in stable condition. Normal [facility] OPERATIVE NOon 10-15-2023 OPERATIVE NO HNO ID: [id number] Author: JESSE LONGO MD Service: Cardiovascular Medicine Author Type: Physician Type: Operative Report Filed: 10/15/2023 11:59 Note Text: PROCEDURE NOTE: CARDIOVERSION The risks, benefits, alternatives, and personnel discussed with patient or merchandising representative who consents to the procedure. UNIVERSAL [...] Longo MD October 15, 2023 11:57 AM [facility] ECG COMPLETEon 11-14-2022 Atrial Rate 65 BPM [facility] Calculated P [place] 5 degrees [facility] Calculated R [place] -54 degrees [facility] Calculated T [place] 4 degrees [facility] P-R Interval 166 ms [facility] QRS Duration 100 ms [facility] QT Interval 432 ms [facility] QTC Calculation (Bazett) 449 ms [facility] Ventricular Rate 65 BPM [facility] METHYLMALONIC ACID (MMA)on 0 03-22-2022 Methylmalonic Acid, Serum 138 nmol/L Normal 0-378 [facility] Comment on above: Performed By: #### M MA2 #### [facility] [address] [place] [address] Dr. Sunil Claudio CBC AUTO DIFFon 03-16-2022 BASO # 0.1 103/ul Normal 0.0-0.1 [facility] Comment on above: Performed By: #### C BC #### [facility] [address] [place] [address] Dr. Sunil Claudio Basophils/100 WBC (Bld) 0.7 % Normal 0.2-2.0 [facility] Comment on above: Performed By: #### C BC #### [facility] [address] [place] [address] Dr. Sunil Claudio EO # 0.4 103/ul Normal 0.0-0.7 [facility] Comment on above: Performed By: #### C BC #### [facility] [address] [place] [address] Dr. Sunil Claudio Eosinophils/100 WBC (Bld) 4.3 % Normal 0.9-7.0 [facility] Comment on above: Performed By: #### C BC #### [facility] [address] [place] [address] Dr. Sunil Claudio Erythrocyte distribution width (RBC) [Ratio] 13.2 % Normal 11.0-15.0 [facility] Comment on above: Performed By: #### C BC #### [facility] [address] [place] [address] Dr. Sunil Claudio Hematocrit (Bld) [Volume fraction] 40.8 % Critically low 42.0-54.0 [facility] Comment on above: Performed By: #### C BC #### [facility] [address] [place] [address] Dr. Sunil Claudio Hemoglobin (Bld) [Mass/Vol] 13.4 g/dL Critically low 14.0-18.0 [facility] Comment on above: Performed By: #### C BC #### [facility] [address] [place] [address] Dr. Sunil Claudio IG # 0.03 10e3/ul Normal 0.00-0.03 [facility] Comment on above: Performed By: #### C BC #### [facility] [address] [place] [address] Dr. Sunil Claudio IG % 0.3 % Normal 0.0-0.5 [facility] Comment on above: Performed By: #### C BC #### [facility] [address] [place] [address] Dr. Sunil Claudio LYMPH # 1.7 103/ul Normal 1.2-3.8 [facility] Comment on above: Performed By: #### C BC #### [facility] [address] [place] [address] Dr. Sunil Claudio Lymphocytes/100 WBC (Bld) 17.8 % Critically low 20.5-60.0 [facility] Comment on above: Performed By: #### C BC #### [facility] [address] [place] [address] Dr. Sunil Claudio MANUAL DIFF REQ NO Normal [facility] Comment on above: Performed By: #### C BC #### [facility] [address] [place] [address] Dr. Sunil Claudio MCH (RBC) [Entitic mass] 29.6 pg Normal 25.9-34.0 [facility] Comment on above: Performed By: #### C BC #### [facility] [address] [place] [address] Dr. Sunil Claudio MCHC (RBC) [Mass/Vol] 32.8 g/dL Normal 29.9-35.2 [facility] Comment on above: Performed By: #### C BC #### [facility] [address] [place] [address] Dr. Sunil Claudio MCV (RBC) [Entitic vol] 90.3 fL Normal 80.0-94.0 [facility] Comment on above: Performed By: #### C BC #### [facility] [address] [place] [address] Dr. Sunil Claudio MONO # 0.8 103/ul Normal 0.3-0.8 [facility] Comment on above: Performed By: #### C BC #### [facility] [address] [place] [address] Dr. Sunil Claudio Monocytes/100 WBC (Bld) 8.6 % Normal 1.7-12.0 [facility] Comment on above: Performed By: #### C BC #### [facility] [address] [place] [address] Dr. Sunil Claudio NEUT # 6.7 103/ul Critically high 1.4-6.5 [facility] Comment on above: Performed By: #### C BC #### [facility] [address] [place] [address] Dr. Sunil Claudio Neutrophils/100 WBC (Bld) 68.3 % Normal 43.0-75.0 [facility] Comment on above: Performed By: #### C BC #### [facility] [address] [place] [address] Dr. Sunil Claudio Platelet mean volume (Bld) [Entitic vol] 10.1 fL Normal 9.5-13.5 [facility] Comment on above: Performed By: #### C BC #### [facility] [address] [place] [address] Dr. Sunil Claudio PLT 240 103/ul Normal 150-450 [facility] Comment on above: Performed By: #### C BC #### [facility] [address] [place] [address] Dr. Sunil Claudio RBC 4.52 106/ul Critically low 4.70-6.[address] [facility] Comment on above: Performed By: #### C BC #### [facility] [address] [place] [address] Dr. Sunil Claudio WBC 9.8 103/ul Normal 4.0-11.0 [facility] Comment on above: Performed By: #### C BC #### [facility] [address] [place] [address] Dr. Sunil Claudio FERRITINon 03-16-2022 Ferritin [Mass/Vol] 103.0 ng/mL Normal 26.0-388.0 [facility] Comment on above: Performed By: #### F ETIBC, B12FOL, FERR #### [facility] [address] [place] [address] Dr. Sunil Claudio IRON AND TIBCon 03-16-2022 % SATURATION 27.3 % Normal [facility] Comment on above: Performed By: #### F ETIBC, B12FOL, FERR #### [facility] [address] [place] [address] Dr. Sunil Claudio Iron [Mass/Vol] 89.0 ug/dL Normal 65.0-175.0 [facility] Comment on above: Performed By: #### F ETIBC, B12FOL, FERR #### [facility] [address] [place] [address] Dr. Sunil Claudio TIBC DIRECT 326.0 ug/dL Normal 250.0-450.0 [facility] Comment on above: Performed By: #### F ETIBC, B12FOL, FERR #### [facility] [address] [place] [address] Dr. Sunil Claudio VIT B12 AND FOLATEon 022 Cobalamin (Vitamin B12) [Mass/Vol] 592.0 pg/mL Normal 193.0-986.0 [facility] Comment on above: Performed By: #### F ETIBC, B12FOL, FERR #### [facility] [address] [place] [address] Dr. Sunil Claudio FOLATE 20.40 ng/mL Normal 8.60-58.90 [facility] Comment on above: Performed By: #### F ETIBC, B12FOL, FERR #### [facility] [address] [place] [address] Dr. Sunil Claudio US KNEE-INJECTION LT (POC) O RI USE ONLYon 03-06-2022 [facility] US KNEE-INJECTION RT (POC) O RI USE ONLYon 03-06-2022 [facility] ECHOon 12-13-2021 [facility] CBC AUTO DIFFon 11-29-2021 BASO # 0.1 103/ul Normal 0.0-0.1 [facility] Comment on above: Performed By: #### C BC #### [facility] [address] [place] [address] Dr. Sunil Claudio Basophils/100 WBC (Bld) 0.7 % Normal 0.2-2.0 [facility] Comment on above: Performed By: #### C BC #### [facility] [address] [place] [address] Dr. Sunil Claudio EO # 0.4 103/ul Normal 0.0-0.7 [facility] Comment on above: Performed By: #### C BC #### [facility] [address] [place] [address] Dr. Sunil Claudio Eosinophils/100 WBC (Bld) 4.4 % Normal 0.9-7.0 [facility] Comment on above: Performed By: #### C BC #### [facility] [address] [place] [address] Dr. Sunil Claudio Erythrocyte distribution width (RBC) [Ratio] 12.9 % Normal 11.0-15.0 [facility] Comment on above: Performed By: #### C BC #### [facility] [address] [place] [address] Dr. Sunil Claudio Hematocrit (Bld) [Volume fraction] 41.6 % Critically low 42.0-54.0 [facility] Comment on above: Performed By: #### C BC #### [facility] [address] [place] [address] Dr. Sunil Claudio Hemoglobin (Bld) [Mass/Vol] 13.7 g/dL Critically low 14.0-18.0 [facility] Comment on above: Performed By: #### C BC #### [facility] [address] [place] [address] Dr. Sunil Claudio IG # 0.03 10e3/ul Normal 0.00-0.03 [facility] Comment on above: Performed By: #### C BC #### [facility] [address] [address] [address] Sunil Claudio IG % 0.4 % Normal 0.0-0.5 [facility] Comment on above: Performed By: #### C BC #### [facility] [address] [place] [address] Dr. Sunil Claudio LYMPH # 2.2 103/ul Normal 1.2-3.8 [facility] Comment on above: Performed By: #### C BC #### [facility] [address] [place] [address] Dr. Sunil Claudio Lymphocytes/100 WBC (Bld) 25.7 % Normal 20.5-60.0 [facility] Comment on above: Performed By: #### C BC #### [facility] [address] [place] [address] Dr. Sunil Claudio MANUAL DIFF REQ NO Normal [facility] Comment on above: Performed By: #### C BC #### [facility] [address] [place] [address] Dr. Sunil Claudio MCH (RBC) [Entitic mass] 29.7 pg Normal 25.9-34.0 [facility] Comment on above: Performed By: #### C BC #### [facility] [address] [place] [address] Dr. Sunil Claudio MCHC (RBC) [Mass/Vol] 32.9 g/dL Normal 29.9-35.2 [facility] Comment on above: Performed By: #### C BC #### [facility] [address] [place] [address] Dr. Sunil Claudio MCV (RBC) [Entitic vol] 90.2 fL Normal 80.0-94.0 [facility] Comment on above: Performed By: #### C BC #### [facility] [address] [place] [address] Dr. Sunil Claudio MONO # 0.8 103/ul Normal 0.3-0.8 [facility] Comment on above: Performed By: #### C BC #### [facility] [address] [address] [address] Sunil Claudio Monocytes/100 WBC (Bld) 9.1 % Normal 1.7-12.0 [facility] Comment on above: Performed By: #### C BC #### [facility] [address] [address] [address] Sunil Claudio NEUT # 5.0 103/ul Normal 1.4-6.5 [facility] Comment on above: Performed By: #### C BC #### [facility] [address] [address] [address] Sunil Claudio Neutrophils/100 WBC (Bld) 59.7 % Normal 43.0-75.0 [facility] Comment on above: Performed By: #### C BC #### [facility] [address] [place] [address] Dr. Sunil Claudio Platelet mean volume (Bld) [Entitic vol] 9.9 fL Normal 9.5-13.5 [facility] Comment on above: Performed By: #### C BC #### [facility] [address] [address] [address] Sunil Claudio PLT 258 103/ul Normal 150-450 [facility] Comment on above: Performed By: #### C BC #### [facility] [address] [place] [address] Dr. Sunil Claudio RBC 4.61 106/ul Critically low 4.70-6.[address] [facility] Comment on above: Performed By: #### C BC #### [facility] [address] [place] [address] Dr. Sunil Claudio WBC 8.4 103/ul Normal 4.0-11.0 [facility] Comment on above: Performed By: #### C BC #### [facility] [address] [place] [address] Dr. Sunil Claudio CREATININE, BLOOD (POC)on Creatinine [Mass/Vol] 0.70 mg/dL 0.7 - 1.4 mg/dL [facility] GFR/1.73 sq M.predicted among non-blacks MDRD (S/P/Bld) [Vol rate/Area] mL/min/{1.73_m2} [facility] CTA CORONARY W IVCONon 11-28 [facility] CBC Without Differentialon 0 12-24-2020 Erythrocyte distribution width (RBC) [Ratio] 13.1 % Normal 12.0-14.8 [facility] Comment on above: Performed By: #### O UTREACH CMP, OUTREACH VITD, PSA OUTREACH, OUTREACH LIPID, CBCNOOUTREACH #### [facility] [address] Hematocrit (Bld) [Volume fraction] 42.3 % Normal 38.8-50.0 [facility] Comment on above: Performed By: #### O UTREACH CMP, OUTREACH VITD, PSA OUTREACH, OUTREACH LIPID, CBCNOOUTREACH #### [address] Hemoglobin (Bld) [Mass/Vol] 14.6 g/dL Normal 13.0-17.0 [facility] Comment on above: Performed By: #### O UTREACH CMP, OUTREACH VITD, PSA OUTREACH, OUTREACH LIPID, CBCNOOUTREACH #### [address] MCH (RBC) [Entitic mass] 31.2 pg Normal 27.5-35.2 [facility] Comment on above: Performed By: #### O UTREACH CMP, OUTREACH VITD, PSA OUTREACH, OUTREACH LIPID, CBCNOOUTREACH #### [address] MCV (RBC) [Entitic vol] 90.4 fL Normal 83.5-101 [facility] Comment on above: Performed By: #### O UTREACH CMP, OUTREACH VITD, PSA OUTREACH, OUTREACH LIPID, CBCNOOUTREACH #### [address] Mean Corpuscular HGB Conc 34.6 g/dL Normal 32.5-35.6 [facility] Comment on above: Performed By: #### O UTREACH CMP, OUTREACH VITD, PSA OUTREACH, OUTREACH LIPID, CBCNOOUTREACH #### [facility] [address] Platelet mean volume (Bld) [Entitic vol] 9.9 fL Normal 6.6-10.1 [facility] Comment on above: Result Comment: PERF ORMED BY: [place] [address] PATHOLOGIST RN DOCUMENTATION BEAU STAHL M.D. Performed By: #### O UTREACH CMP, OUTREACH VITD, PSA OUTREACH, OUTREACH LIPID, CBCNOOUTREACH #### [facility] [address] [place] [address] [place] Platelets (Bld) [#/Vol] 239 10*3/uL Normal 150-450 [facility] Comment on above: Performed By: #### O UTREACH CMP, OUTREACH VITD, PSA OUTREACH, OUTREACH LIPID, CBCNOOUTREACH #### [address] RBC (Bld) [#/Vol] 4.67 10*6/uL Normal 3.90-5.60 [facility] Comment on above: Performed By: #### O UTREACH CMP, OUTREACH VITD, PSA OUTREACH, OUTREACH LIPID, CBCNOOUTREACH #### [facility] [address] [place] [address] WBC (Bld) [#/Vol] 8.6 10*3/uL Normal 4.1-10.5 [facility] Comment on above: Performed By: #### O UTREACH CMP, OUTREACH VITD, PSA OUTREACH, OUTREACH LIPID, CBCNOOUTREACH #### [facility] [address] [place] [address] [place] CMP Outreachon 12-24-2020 Albumin [Mass/Vol] 3.6 g/dL Normal 3.2-5.5 [facility] Comment on above: Performed By: #### O UTREACH CMP, OUTREACH VITD, PSA OUTREACH, OUTREACH LIPID, CBCNOOUTREACH #### [facility] [address] [place] [address] ALP [Catalytic activity/Vol] 65 U/L Normal 32-92 [facility] Comment on above: Performed By: #### O UTREACH CMP, OUTREACH VITD, PSA OUTREACH, OUTREACH LIPID, CBCNOOUTREACH #### [facility] [address] [place] [address] [place] ALT [Catalytic activity/Vol] 21 U/L Normal 10-60 [facility] Comment on above: Performed By: #### O UTREACH CMP, OUTREACH VITD, PSA OUTREACH, OUTREACH LIPID, CBCNOOUTREACH #### [facility] [address] [place] [address] [place] AST [Catalytic activity/Vol] 23 U/L Normal 10-42 [facility] Comment on above: Performed By: #### O UTREACH CMP, OUTREACH VITD, PSA OUTREACH, OUTREACH LIPID, CBCNOOUTREACH #### [facility] [address] [place] [address] [place] Bilirubin [Mass/Vol] 0.7 mg/dL Normal 0.3-1.2 [facility] Comment on above: Performed By: #### O UTREACH CMP, OUTREACH VITD, PSA OUTREACH, OUTREACH LIPID, CBCNOOUTREACH #### [facility] [address] [place] [address] [place] Calcium [Mass/Vol] 8.7 mg/dL Normal 8.2-10.2 [facility] Comment on above: Performed By: #### O UTREACH CMP, OUTREACH VITD, PSA OUTREACH, OUTREACH LIPID, CBCNOOUTREACH #### [facility] [address] [place] [address] [place] Chloride [Moles/Vol] 106 mmol/L Normal 95-114 [facility] Comment on above: Performed By: #### O UTREACH CMP, OUTREACH VITD, PSA OUTREACH, OUTREACH LIPID, CBCNOOUTREACH #### [facility] [address] [place] [address] [place] CO2 [Moles/Vol] 21.4 mmol/L Low 22.0-30.0 [facility] Comment on above: Performed By: #### O UTREACH CMP, OUTREACH VITD, PSA OUTREACH, OUTREACH LIPID, CBCNOOUTREACH #### [facility] [address] [id number] [place] Creatinine [Mass/Vol] 0.64 mg/dL Normal 0.64-1.27 [facility] Comment on above: Performed By: #### O UTREACH CMP, OUTREACH VITD, PSA OUTREACH, OUTREACH LIPID, CBCNOOUTREACH #### [facility] [address] [phone] [place] Estimated GFR ( Mansi > 60 Normal [facility] Comment on above: Result Comment: GFR estimated reference range: According to KDOQI guidelines, <60 ml/min/1.73m2 is sufficient to diagnose a patient with chronic kidney disease. Performed By: #### O UTREACH CMP, OUTREACH VITD, PSA OUTREACH, OUTREACH LIPID, CBCNOOUTREACH #### [facility] [address] [place] [address] [place] Estimated GFR (Non- Am > 60 [facility] Comment on above: Performed By: #### O UTREACH CMP, OUTREACH VITD, PSA OUTREACH, OUTREACH LIPID, CBCNOOUTREACH #### [place] [address] [place] Glucose [Mass/Vol] 90 mg/dL Normal 70-100 [facility] Comment on above: Result Comment: [place] Glucose Reference Range is dependent on time and content of last meal. Glucose of more than 200 mg/dL in a nonstressed, ambulatory subject supports the diagnosis of Diabetes Mellitus. ADA recommended reference range Performed By: #### O UTREACH CMP, OUTREACH VITD, PSA OUTREACH, OUTREACH LIPID, CBCNOOUTREACH #### [facility] [address] [place] [phone] [place] Potassium [Moles/Vol] 4.4 mmol/L Normal 3.5-5.1 [facility] Comment on above: Performed By: #### O UTREACH CMP, OUTREACH VITD, PSA OUTREACH, OUTREACH LIPID, CBCNOOUTREACH #### [facility] [address] [place] [phone] [place] Protein [Mass/Vol] 6.8 g/dL Normal 6.1-7.9 [facility] Comment on above: Performed By: #### O UTREACH CMP, OUTREACH VITD, PSA OUTREACH, OUTREACH LIPID, CBCNOOUTREACH #### [facility] [address] Sodium [Moles/Vol] 137 mmol/L Normal 136-146 [facility] Comment on above: Performed By: #### O UTREACH CMP, OUTREACH VITD, PSA OUTREACH, OUTREACH LIPID, CBCNOOUTREACH #### [facility] [address] [id number] [facility] Urea nitrogen [Mass/Vol] 14 mg/dL Normal 9-23 [facility] Comment on above: Performed By: #### O UTREACH CMP, OUTREACH VITD, PSA OUTREACH, OUTREACH LIPID, CBCNOOUTREACH #### [facility] [address] Lipid Profile Outreachon Cholesterol [Mass/Vol] 134 mg/dL Low 140-200 [facility] Comment on above: Result Comment: Chol less than 200 mg/dl low risk Chol 201-239 mg/dl borderline risk Chol 240 mg/dl and greater high risk Performed By: #### O UTREACH CMP, OUTREACH VITD, PSA OUTREACH, OUTREACH LIPID, CBCNOOUTREACH #### [facility] [address] Cholesterol in HDL [Mass/Vol] 40 mg/dL Normal 29-71 [facility] Comment on above: Result Comment: HDL CHOL ATP-III CLASSIFICATION Cardiovascular Risk HDL > or equal to 60 mg/dL LOW HDL < 40 mg/dL HIGH Performed By: #### O UTREACH CMP, OUTREACH VITD, PSA OUTREACH, OUTREACH LIPID, CBCNOOUTREACH #### [facility] [address] [phone] [place] Cholesterol.total/Cho lesterol in HDL [Mass ratio] 3.4 {ratio} Normal <5.0 [facility] Comment on above: Performed By: #### O UTREACH CMP, OUTREACH VITD, PSA OUTREACH, OUTREACH LIPID, CBCNOOUTREACH #### [facility] [address] [phone] [place] LDL Cholesterol,Calculate d 86 mg/dL Normal 0-100 [facility] Comment on above: Result Comment: LDL ATP III CLASSIFICATION LDL less than 100 mg/dL Optimal LDL 100-129 mg/dL Near or above optimal LDL 130-159 mg/dL Borderline high LDL 160-189 mg/dL High LDL greater than 189 mg/dL Very high Performed By: #### O UTREACH CMP, OUTREACH VITD, PSA OUTREACH, OUTREACH LIPID, CBCNOOUTREACH #### [facility] [address] Triglyceride w/Reflex 42 mg/dL Normal 35-149 [facility] Comment on above: Result Comment: TRIG ATP III CLASSIFICATION TRIG less than 150 mg/dL Normal TRIG 150-199 mg/dL Borderline high TRIG 200-500 mg/dL High TRIG greater than 500 mg/dL Very high Standard traceable to the Center for Disease Conrtrol and Prevention (CDC) test method. Performed By: #### O UTREACH CMP, OUTREACH VITD, PSA OUTREACH, OUTREACH LIPID, CBCNOOUTREACH #### [address] VLDL CHOLESTEROL 8 mg/dL Normal [facility] Comment on above: Performed By: #### O UTREACH CMP, OUTREACH VITD, PSA OUTREACH, OUTREACH LIPID, CBCNOOUTREACH #### [address] PSA Total Community Outreach on 12-24-2020 PSA Total Community Outreach 0.580 ng/mL Normal 0.000-4.000 [facility] Comment on above: Result Comment: PERF ORMED BY: [place] [address] PATHOLOGIST RN DOCUMENTATION BEAU STAHL M.D. Performed By: #### O UTREACH CMP, OUTREACH VITD, PSA OUTREACH, OUTREACH LIPID, CBCNOOUTREACH #### [address] Vitamin D 25 Hydroxy Totalon 12-24-2020 Vitamin D 25 Hydroxy Total 37.8 ng/mL Normal 30-100 [facility] Comment on above: Result Comment: LEVI MIN D STATUS 25(OH)VITAMIN D RANGE (ng/mL) Deficient <20 Insufficient 20 to <30 Sufficient 30 to 100 Reference: Gerardo MF,Dontrell NC, Itzel OBRIEN, et al. Evaluation,treatment, and prevention of vitamin D deficiency; an Endocrine Society clinical practice guideline. JCEM. 2010; 96(7):1911-30. PERFORMED BY: [facility] [address] [place] [address] PATHOLOGIST RN DOCUMENTATION BEAU STAHL M.D. Performed By: #### O UTREACH CMP, OUTREACH VITD, PSA OUTREACH, OUTREACH LIPID, CBCNOOUTREACH #### [facility] [address] Coding Summary.on 01-21-2020 Coding Summary. CODING DATE: 020 [facility] STATUS: Home (Routine DC) PAYOR: Medical [place] ADMIT DX: REASON FOR VISIT DX: Z11.59 [...] Machado Date Saved: 01/21/2020 03:18 am Normal [facility] Physician Orderon 01-08-2020 Physician Order [id number] :[address] [facility] Large Joint Arthro/Inj: bila teral knee joints [facility] Vital Signs Date Time Vital Sign Value Performing Clinician Facility 03-04-2025 11: Body height 188 cm Carlos Garcia MD Work Phone: [facility] 03-04-2025 11: Body mass index (BMI) [Ratio] 29.21 kg/m2 Carlos Garcia MD Work Phone: [facility] 03-04-2025 11: Body weight 103.2 kg Carlos Garcia MD Work Phone: [facility] 03-04-2025 11:22-0400 Diastolic blood pressure 66 mm[Hg] Carlos Garcia MD Work Phone: [facility] 03-04-2025 11:22-0400 Heart rate 48 /min Carlos Garcia MD Work Phone: [facility] 03-04-2025 11:22-0400 SaO2% (BldA) [Mass fraction] 96 % Carlos Garcia MD Work Phone: [facility] 03-04-2025 11:22-0400 Systolic blood pressure 124 mm[Hg] Carlos Garcia MD Work Phone: [facility] 01-19-2025 07:53-0400 Body height 188 cm Johnna Victoria MEDICAL RECORDS ADMINISTRATOR.PROJECT INTERNSHIP Work Phone: [facility] 01-19-2025 07:53-0400 Body mass index (BMI) [Ratio] 28.94 kg/m2 Johnna Victoria MEDICAL RECORDS ADMINISTRATOR.PROJECT INTERNSHIP Work Phone: [facility] 01-19-2025 07:53-0400 Body weight 102.25 kg Johnna Victoria MEDICAL RECORDS ADMINISTRATOR.PROJECT INTERNSHIP Work Phone: [facility] 01-19-2025 07:53-0400 Diastolic blood pressure 76 mm[Hg] Johnna Victoria MEDICAL RECORDS ADMINISTRATOR.PROJECT INTERNSHIP Work Phone: [facility] 01-19-2025 07:53-0400 Heart rate 51 /min Johnna Victoria MEDICAL RECORDS ADMINISTRATOR.PRO[employer] INTERNSHIP Work Phone: [facility] 01-19-2025 07:53-0400 Systolic blood pressure 128 mm[Hg] Johnna Victoria MEDICAL RECORDS ADMINISTRATOR.PROJECT INTERNSHIP Work Phone: [facility] 12-03-2024 08:40-0400 Body height 187.96 cm [facility] 12-03-2024 08:40-0400 Body mass index (BMI) [Ratio] 26 kg/m2 [facility] 12-03-2024 08:40-0400 Body weight 92.13 kg [facility] 12-03-2024 08:40-0400 Diastolic blood pressure 83 mm[Hg] [facility] 12-03-2024 08:40-0400 Heart rate 55 /min [facility] 12-03-2024 08:40-0400 Respiratory rate 12 /min [facility] 12-03-2024 08:40-0400 Systolic blood pressure 135 mm[Hg] [facility] 10-15-2024 08:25-0400 Body mass index (BMI) [Ratio] 29.61 kg/m2 Jesse Longo MD Work Phone: [facility] 10-15-2024 08:25-0400 Body weight 104.6 kg Jesse Longo MD Work Phone: [facility] 10-15-2024 08:25-0400 Diastolic blood pressure 69 mm[Hg] Jesse Longo MD Work Phone: [facility] 10-15-2024 08:25-0400 Heart rate 53 /min Jesse Longo MD Work Phone: [facility] 10-15-2024 08:25-0400 Systolic blood pressure 112 mm[Hg] Jesse Longo MD Work Phone: [facility] 01-09-2024 11:00-0400 Body mass index (BMI) [Ratio] 27.85 kg/m2 Jesse Longo MD Work Phone: [facility] 01-09-2024 11:00-0400 Body weight 98.4 kg Jesse Longo MD Work Phone: [facility] 01-09-2024 11:00-0400 Diastolic blood pressure 78 mm[Hg] Jesse Longo MD Work Phone: [facility] 01-09-2024 11:00-0400 Heart rate 52 /min Jesse Longo MD Work Phone: [facility] 01-09-2024 11:00-0400 Systolic blood pressure 134 mm[Hg] Jesse Longo MD Work Phone: [facility] 11-08-2023 16:10-0400 Body height 188 cm Layla CALIX-C Work Phone: [facility] 11-08-2023 16:10-0400 Body mass index (BMI) [Ratio] 28.1 kg/m2 Layla Roger PA-C Work Phone: [facility] 11-08-2023 16:10-0400 Body weight 99.3 kg Layla Roger PA-C Work Phone: [facility] 11-08-2023 16:10-0400 Diastolic blood pressure 80 mm[Hg] Layla Roger PA-C Work Phone: [facility] 11-08-2023 16:10-0400 Heart rate 84 /min Layla Roger PA-C Work Phone: [facility] 11-08-2023 16:10-0400 Systolic blood pressure 132 mm[Hg] Layla Roger PA-C Work Phone: [facility] 06-05-2023 09:30-0500 Body height 187.96 cm Tae Ball Other [facility] Other 06-05-2023 09:30-0500 Body mass index (BMI) [Ratio] 27.45 kg/m2 Tae Ball Other [facility] Other 06-05-2023 09:30-0500 Body weight 96.98 kg Tae Ball Other [facility] Other 06-05-2023 09:30-0500 Diastolic blood pressure 82 mm[Hg] Tae Ball Other [facility] Other 06-05-2023 09:30-0500 Systolic blood pressure 151 mm[Hg] Tae Ball Other [facility] Other 05-17-2023 09:01-0400 Body weight 97.52 kg Carlos Garcia MD Work Phone: [facility] 05-17-2023 09:01-0400 Diastolic blood pressure 78 mm[Hg] Carlos Garcia MD Work Phone: [facility] 05-17-2023 09:01-0400 Heart rate 57 /min Carlos Garcia MD Work Phone: [facility] 05-17-2023 09:01-0400 SaO2% (BldA) [Mass fraction] 95 % Carlos Garcia MD Work Phone: [facility] 05-17-2023 09:01-0400 Systolic blood pressure 124 mm[Hg] Carlos Garcia MD Work Phone: [facility] 01-17-2023 08:36-0400 Body weight 97.07 kg Jesse Longo MD Work Phone: [facility] 01-17-2023 08:36-0400 Diastolic blood pressure 82 mm[Hg] Jesse Longo MD Work Phone: [facility] 01-17-2023 08:36-0400 Heart rate 50 /min Jesse Longo MD Work Phone: [facility] 01-17-2023 08:36-0400 Systolic blood pressure 126 mm[Hg] Jesse Longo MD Work Phone: [facility] 11-14-2022 11:20-0400 Body weight 99.34 kg Kareen Franc MEDICAL RECORDS ADMINISTRATOR.PRO[employer] INTERNSHIP Work Phone: [facility] 11-14-2022 11:20-0400 Diastolic blood pressure 80 mm[Hg] Kareen Franc MEDICAL RECORDS ADMINISTRATOR.PROJECT INTERNSHIP Work Phone: [facility] 11-14-2022 11:20-0400 Heart rate 64 /min Kareen Franc MEDICAL RECORDS ADMINISTRATOR.[employer]NSHIP Work Phone: [facility] 11-14-2022 11:20-0400 SaO2% (BldA) [Mass fraction] 96 % Kareen Franc MEDICAL RECORDS ADMINISTRATOR.[employer] INTERNSHIP Work Phone: [facility] 11-14-2022 11:20-0400 Systolic blood pressure 119 mm[Hg] Kareen Bruner MEDICAL RECORDS ADMINISTRATOR.[employer] INTERNSHIP Work Phone: [facility] 11-01-2022 09:03-0400 Body weight 99.79 kg Jesse Longo MD Work Phone: [facility] 11-01-2022 09:03-0400 Diastolic blood pressure 78 mm[Hg] Jesse Longo MD Work Phone: [facility] 11-01-2022 09:03-0400 Heart rate 85 /min Jesse Longo MD Work Phone: [facility] 11-01-2022 09:03-0400 Systolic blood pressure 132 mm[Hg] Jesse Longo MD Work Phone: [facility] 05-11-2022 09:02-0400 Body weight 105.96 kg Carlos Garcia MD Work Phone: [facility] 05-11-2022 09:02-0400 Diastolic blood pressure 82 mm[Hg] Carlos Garcia MD Work Phone: [facility] 05-11-2022 09:02-0400 Heart rate 56 /min Carlos Garcia MD Work Phone: [facility] 05-11-2022 09:02-0400 SaO2% (BldA) [Mass fraction] 98 % Carlos Garcia MD Work Phone: [facility] 05-11-2022 09:02-0400 Systolic blood pressure 125 mm[Hg] Carlos Garcia MD Work Phone: [facility] 05-10-2022 08:56-0400 Body weight 105.23 kg Jesse Longo MD Work Phone: [facility] 05-10-2022 08:56-0400 Diastolic blood pressure 78 mm[Hg] Jesse Longo MD Work Phone: [facility] 05-10-2022 08:56-0400 Heart rate 56 /min Jesse Longo MD Work Phone: [facility] 05-10-2022 08:56-0400 Systolic blood pressure 141 mm[Hg] Jesse Longo MD Work Phone: [facility] 03-06-2022 09:52-0400 Body height 185.4 cm Ahmed Elghawy DO Work Phone: [facility] 03-06-2022 09:52-0400 Body temperature 97.3 [degF] Ahmed Elghawy DO Work Phone: [facility] 03-06-2022 09:52-0400 Body weight 104.01 kg Ahmed Elghawy DO Work Phone: [facility] 03-06-2022 09:52-0400 Diastolic blood pressure 77 mm[Hg] Ahmed Elghawy DO Work Phone: [facility] 03-06-2022 09:52-0400 Heart rate 54 /min Ahmed Elghawy DO Work Phone: [facility] 03-06-2022 09:52-0400 Systolic blood pressure 141 mm[Hg] Ahmed Elghawy DO Work Phone: [facility] 11-28-2021 09:56-0400 Diastolic blood pressure 72 mm[Hg] [facility] 11-28-2021 09:56-0400 Heart rate 48 /min [facility] 11-28-2021 09:56-0400 SaO2% (BldA) [Mass fraction] 95 % [facility] 11-28-2021 09:56-0400 Systolic blood pressure 125 mm[Hg] [facility] 11-28-2021 08:34-0400 Body temperature 97.3 [degF] [facility] 11-09-2021 09:45-0400 Body weight 101.61 kg Jesse Longo MD Work Phone: [facility] 11-09-2021 09:45-0400 Diastolic blood pressure 71 mm[Hg] Jesse Longo MD Work Phone: [facility] 11-09-2021 09:45-0400 Heart rate 46 /min Jesse Longo MD Work Phone: [facility] 11-09-2021 09:45-0400 Systolic blood pressure 134 mm[Hg] Jesse Longo MD Work Phone: [facility] 11-09-2021 08:05-0400 Body height 188 cm Carlos Garcia MD Work Phone: [facility] 11-09-2021 08:05-0400 Body weight 101.88 kg Carlos Garcia MD Work Phone: [facility] 11-09-2021 08:05-0400 Diastolic blood pressure 86 mm[Hg] Carlos Garcia MD Work Phone: [facility] 11-09-2021 08:05-0400 Heart rate 54 /min Carlos Garcia MD Work Phone: [facility] 11-09-2021 08:05-0400 Systolic blood pressure 112 mm[Hg] Carlos Garcia MD Work Phone: [facility] Encounters Encounter Date Encounter Type Care Provider Facility Start: 04-02-2025 End: 04-02-2025 ambulatory ANTOINETTE HORN Facility:[facility] Start: 03-08-2025 End: 03-09-2025 ambulatory Carlos Garcia MD Work Phone: Cardiology Start: 03-08-2025 End: 03-09-2025 Patient encounter procedure Carlos Garcia MD Work Phone: Cardiology Comment on above: Renewal of a previou s prescription for flexcainide Start: 03-05-2025 End: 03-05-2025 ambulatory TAE MARTINEZ Facility:[facility] Start: 03-04-2025 End: 03-04-2025 Office outpatient visit 25 minutes Carlos Garcia MD Work Phone: Cardiology Comment on above: Coronary artery dise ase involving [place] heart, unspecified vessel or lesion type, unspecified whether angina present (Primary Dx); Chronic atrial fibrillation (HCC); High serum thyroid stimulating hormone (TSH); Osteoarthritis, unspecified osteoarthritis type, unspecified site Start: 03-04-2025 End: 03-04-2025 ambulatory CARLOS GARCIA Facility:[facility] Start: 02-02-2025 End: 02-02-2025 ambulatory TAE De Leon JUAN Facility:[facility] Start: 01-19-2025 End: 01-19-2025 Patient encounter procedure Johnna Victoria EL Work Phone: Cardiology Comment on above: Atrial fibrillation, persistent (HCC) (Primary Dx); Atrial fibrillation status post cardioversion (HCC); History of cardiac radiofrequency ablation Start: 01-19-2025 End: 01-19-2025 ambulatory TAE MARTINEZ Facility:[facility] Start: 01-14-2025 End: 01-15-2025 Refill Johnna Victoria EL Work Phone: Cardiology Comment on above: Refill Request Start: 01-07-2025 End: 01-07-2025 Telephone encounter Johnnawilliam Victoria APRN.CNP Work Phone: Cardiology Comment on above: Procedure (Cardiover kyle) Start: 01-06-2025 End: 01-07-2025 E-mail encounter from caregiver [facility] Provider Cardiology Start: 01-06-2025 End: 03-08-2025 Follow-up encounter Johnna Julien GALLEGOS Work Phone: Cardiology Comment on above: Procedure (Cardiover kyle rescheduling) Start: 01-06-2025 End: 01-07-2025 Patient encounter procedure [facility] Comment on above: Rescheduling tomorro w's cardioversion Start: 01-05-2025 End: 01-05-2025 ambulatory TAE MARTINEZ Facility:[facility] Start: 12-29-2024 End: 12-30-2024 Telephone encounter Jesse Longo MD Work Phone: Cardiology Comment on above: A-fib Start: 12-27-2024 End: 12-29-2024 Refill Carlos Garcia MD Work Phone: Cardiology Comment on above: Refill Request Start: 12-03-2024 End: 12-03-2024 ambulatory [facility] Work Phone: Start: 12-03-2024 End: 12-03-2024 Encounter for general adult medical examination without abnormal findings [facility] Start: 12-03-2024 End: 12-03-2024 Patient encounter procedure [facility] Work Phone: Start: 11-27-2024 End: 11-27-2024 Refill Jesse Longo MD Work Phone: Cardiology Comment on above: Refill Request Start: 10-15-2024 End: 10-15-2024 ambulatory [facility] Facility:[facility] Start: 10-15-2024 End: 10-15-2024 Patient encounter procedure Jesse Longo MD Work Phone: Cardiology Comment on above: Atrial fibrillation, persistent (HCC) (Primary Dx) Start: 09-28-2024 End: 09-28-2024 Refill Carlos Garcia MD Work Phone: Cardiology Comment on above: Refill Request Start: 04-22-2024 End: 04-22-2024 ambulatory Carlos Garcia MD Work Phone: Cardiology Start: 04-22-2024 End: 04-22-2024 Patient encounter procedure Carlos Garcia MD Work Phone: Cardiology Comment on above: Prescription Start: 04-06-2024 End: 04-07-2024 Refill Carlos Garcia MD Work Phone: Cardiology Comment on above: Refill Request Start: 02-03-2024 Refill Layla Roger PA-C Work Phone: Cardiology Comment on above: Refill Request Start: 01-09-2024 End: 01-09-2024 Patient encounter procedure Jesse Longo MD Work Phone: Cardiology Comment on above: Persistent atrial fi brillation (HCC) (Primary Dx) Start: 12-20-2023 Get Medical Advice Layla correa PA-C Work Phone: Cardiology Comment on above: METOPROLOL Refill an d dosage Start: 11-27-2023 End: 11-27-2023 ambulatory ARCHANA HARKINS Facility:[facility] Start: 11-21-2023 Telephone encounter Layla mcdowell PA-C Work Phone: Cardiology Comment on above: Patient Update Start: 11-15-2023 End: 11-15-2023 Patient encounter procedure Nurse Card [facility] Work Phone: Cardiology Comment on above: Persistent atrial fi brillation (HCC) Start: 11-08-2023 End: 11-08-2023 Patient encounter procedure Layla Roger PA-C Work Phone: Cardiology Comment on above: Persistent atrial fi brillation (HCC) (Primary Dx); S/P ablation of atrial fibrillation; On continuous oral anticoagulation Start: 11-01-2023 Telephone encounter Jesse Longo MD Work Phone: Cardiology Comment on above: Patient is Back in A fib Start: 10-15-2023 End: 10-15-2023 ambulatory JESSE LONGO Facility:[facility] Start: 10-14-2023 Telephone encounter Layla mcdowell PA-C Work Phone: Cardiology Comment on above: Procedure (Cardiover kyle) Start: 10-07-2023 Telephone encounter Jesse Longo MD Work Phone: Cardiology Comment on above: A-fib Start: 07-24-2023 End: 07-24-2023 ambulatory Tae Martinez Other [facility] Other Start: 07-24-2023 Telephone encounter Tae Martinez [facility] Start: 06-05-2023 End: 06-05-2023 ambulatory Tae Martinez Other [facility] Other Start: 06-05-2023 Office outpatient vi sit 25 minutes Tae Martinez [facility] Start: 05-21-2023 ambulatory Carlos ansari MD Work Phone: Cardiology Comment on above: LDL Start: 05-21-2023 E-mail encounter fro m caregiver Carlos Garcia MD Work Phone: KEVIN HARKINS [facility] Start: 05-20-2023 End: 05-20-2023 ambulatory Tae Martinez Other [facility] Other Start: 05-20-2023 Telephone encounter Tae Martinez [facility] Start: 05-17-2023 End: 05-17-2023 Patient encounter procedure Carlos Garcia MD Work Phone: Cardiology Comment on above: Coronary artery dise ase involving [place] heart without angina pectoris, unspecified vessel or lesion type (Primary Dx) Start: 04-25-2023 Refill Carlos ansari MD Work Phone: Cardiology Comment on above: Refill Request Start: 01-17-2023 End: 01-17-2023 Patient encounter procedure [...] Start: 07-21-2022 ambulatory Carmen Johnson RN NURSE PLASTICS SCIENTIST Comment on above: Post Op Bleeding (Br uising/) Start: 06-04-2022 Orders Only Jesse Longo MD Work Phone: Cardiology Comment on above: Persistent atrial fi brillation (HCC) (Primary Dx) Start: 05-31-2022 Refill Carlos ansari MD Work Phone: Cardiology Comment on above: Refill Request Start: 05-11-2022 End: 05-11-2022 Patient encounter procedure Carlos Garcia MD Work Phone: Cardiology Comment on above: Coronary artery dise ase involving [place] coronary artery of [place] heart, unspecified whether angina present (Primary Dx) [...] End: 12-13-2021 Patient encounter procedure Stress Echo [facility] Work Phone: Cardiology Comment on above: Under observation fo r suspected coronary artery disease; Essential hypertension; Persistent atrial fibrillation (HCC); Pulmonary hypertension, unspecified (HCC) Start: 12-05-2021 Encounter for genera l adult medical examination without abnormal findings DR TAE MARTINEZ [facility] Start: 11-29-2021 End: 11-30-[address] TAE MARTINEZ Facility:[facility] Start: 11-29-2021 End: 11-30-2021 Encounter for general adult medical examination without abnormal findings DR TAE MARTINEZ Facility:[facility] Start: 11-28-2021 Telephone encounter Carlos joseph MD Work Phone: Cardiology Comment on above: Results; Orders Start: 11-28-2021 End: 11-28-2021 Subsequent hospital visit by physician [facility] Radiology Comment on above: Under observation fo r suspected coronary artery disease [Z03.89] Start: 11-27-2021 ambulatory Carlos ansari MD Work Phone: Cardiology Comment on above: Medications Start: 11-27-2021 Telephone encounter Carlos joseph MD Work Phone: Cardiology Comment on above: Orders Start: 11-23-2021 Adult health examination Ricardo Martinez Other [facility] Other Start: 11-09-2021 End: 11-09-2021 Patient encounter procedure Carlos Garcia MD Work Phone: Cardiology Comment on above: Under observation fo r suspected coronary artery disease (Primary Dx); Other hyperlipidemia; Essential hypertension; Persistent atrial fibrillation (HCC); Pulmonary hypertension, unspecified (HCC); Abnormal nuclear stress test Persistent atrial fi brillation (HCC) (Primary Dx) Procedures Date Procedure Procedure Detail Performing Clinician Start: 01-19-2025 Ecg routine ecg w/le ast 12 lds i&r only Johnna Victoria APRHIGINIO Work Phone: Start: 10-15-2024 Ecg routine ecg w/le ast 12 lds i&r only [facility] Provider Start: 01-09-2024 Ecg routine ecg w/le ast [...] Work Phone: Start: 11-29-[address] DELA CRUZ IN [place] Comment on above: Performed By: #### [facility] #### [facility] [address] [place] [address] Dr. Sunil Claudio Start: 11-28-2021 Cta hrt cornry art/b ypass grfts contrst 3d post Carlos Garcia MD Work Phone: Start: 05-17-2022 Creatinine [Mass/vol ume] in Serum or Plasma [...] Treatment Date Care Activity Detail Author Start: 2033 RSV Vaccine (1 - 1-dose 75+ series) RSV Vaccine (1 - 1-dose 75+ series) [facility] Start: 05-20-2028 Lipid 1996 panel - Serum or Plasma Lipid Screening [facility] Start: 05-20-2028 Lipid panel Lipid Screening [facility] Start: 04-04-2028 Urine microalbumin profile DTaP,Tdap,Td Vaccine (2 - Tdap) [facility] Start: 01-06-2028 Diabetes Screening Diabetes Screening [facility] Start: 05-18-2027 Lipid 1996 panel - Serum or Plasma Lipid Screening [facility] Start: 05-18-2027 LIPID SCREEN LIPID SCREEN [facility] Start: 11-29-2026 PROSTATE CANCER SCREENING DISCUSSION PROSTATE CANCER SCREENING DISCUSSION [facility] Start: 11-29-2026 Prostate specific antigen measurement Prostate Cancer Screening Discussion [facility] Start: 11-28-2026 LIPID SCREEN LIPID SCREEN [facility] Start: 11-24-2026 Diabetes Screening Diabetes Screening [facility] Start: 10-10-2026 Diabetes Screening Diabetes Screening [facility] Start: 05-12-2026 LIPID SCREEN LIPID SCREEN [facility] Start: 12-03-2025 End: 12-03-2025 Patient encounter procedure 12/03/2025 8:00 AM EDT Office Visit Cardiology [id number] [place] [address] [place] [address] [place], [place] [id number] 9 month follow up Cardiology Comment on above: 9 month follow up Start: 11-05-2025 DIABETES SCREEN DIABETES SCREEN [facility] Start: 11-05-2025 Diabetes Screening Diabetes Screening [facility] Start: 10-15-2025 BP Controlled (<130/80) BP Controlled (<130/80) [facility] in Start: 07-13-2025 DIABETES SCREEN DIABETES SCREEN [facility] Start: 06-04-2025 End: 09-03-2025 Lipid 1996 panel - Serum or Plasma LIPID PANEL, FASTING Lab Routine Coronary artery disease involving [place] heart, unspecified vessel or lesion type, unspecified whether angina present Chronic atrial fibrillation (HCC) High serum thyroid stimulating hormone (TSH) Expected: 06/04/2025 (Approximate), Expires: 09/03/2025 [facility] Comment on above: Expected: 06/04/2025 (Approximate), Expi res: 09/03/2025 Start: 06-04-2025 End: 06-04-2025 Patient encounter procedure 06/04/2025 8:40 AM EST Office Visit Cardiology [id number] [place] [address] [place] [address] [place] [address] 3m s/p [facility] Cardiology Comment on above: 3m s/p [facility] Start: 04-05-2025 End: 04-05-2025 Patient encounter procedure 04/05/2025 9:30 AM EDT Office Visit Cardiology [id number] [place] [id number] [place] [address] [place] [address] Follow Up Per Pt Cardiology Comment on above: Follow Up Per Pt Start: 04-02-2025 End: 04-02-2025 Patient encounter procedure 04/02/2025 2:00 PM EDT [facility] Endocrinology [address] [place] [address] Antoinette Horn MD [address] [place] [address] High serum thyroid stimulating hormone (TSH) [R79.89] Endocrinology Comment on above: High serum thyroid stimulating hormone ( TSH) [R79.89] Start: 03-15-2025 Influenza vaccination Influenza Vaccine [facility]) [facility] Start: 03-04-2025 End: 06-03-2025 Lipoprotein a [Mass/volume] in Serum or Plasma LIPOPROTEIN (A) Lab Routine Coronary artery disease involving [place] heart, unspecified vessel or lesion type, unspecified whether angina present Chronic atrial fibrillation (HCC) High serum thyroid stimulating hormone (TSH) Expected: 03/04/2025, Expires: 06/03/2025 [facility] Comment on above: Expected: 03/04/2025, Expires: Start: 03-04-2025 End: 06-03-2025 Thyrotropin [Units/volume] in Serum or Plasma THYROID STIMULATING HORMONE Lab Routine Coronary artery disease involving [place] heart, unspecified vessel or lesion type, unspecified whether angina present Chronic atrial fibrillation (HCC) High serum thyroid stimulating hormone (TSH) Expected: 03/04/2025, Expires: 06/03/2025 [facility] Work Phone: Comment on above: Expected: 03/04/2025, Expires: Start: 03-04-2025 End: 03-04-2025 Patient encounter procedure 03/04/2025 11:30 AM EDT Office Visit Cardiology [address] [place] [address] [place] [address] [place] [address] Follow Up Per Pt Cardiology Comment on above: Follow Up Per Pt Start: 02-02-2025 End: 02-02-2025 Patient encounter procedure 02/02/2025 1:50 PM EDT Office Visit Cardiology [address] [facility] [address] [place], [place] [id number] [employer] [facility] [address] [facility] [place] [id number] echo Cardiology Comment on above: echo Start: 01-20-2025 End: 01-20-2025 Patient encounter procedure 01/20/2025 6:30 PM EDT Office Visit Cardiology [address] [place] [address] Johnna Victoria APRN.[employer] [address] [place] [address] S/P DCC Cardiology Comment on above: S/P DCC Start: 01-14-2025 End: 01-14-2025 Admission to same day surgery center 01/14/2025 8:30 AM EDT - 01/14/2025 9:00 AM EDT Surgery [facility] [address] [place] [address] Kwan Marie MD [address] [place] [address] CARDIOVERSION EXTERNAL ELECTIVE [facility] Comment on above: CARDIOVERSION EXTERNAL ELECTIVE Start: 01-14-2025 End: 01-14-2025 Cardioversion elective arrhythmia external CARDIOVERSION EXTERNAL ELECTIVE Atrial fibrillation, unspecified type (HCC) 01/14/2025 8:30 AM EDT AV CATH Start: 01-14-2025 Subsequent hospital visit by physician 01/14/2025 8:30 AM EDT Hospital Encounter [facility] [address] [place] [address] Kwan Marie MD [address] [place] [address] Atrial fibrillation, unspecified type (HCC) [I48.91] [facility] Comment on above: Atrial fibrillation, unspecified type (H CC) [I48.91] Start: 12-18-2024 DIABETES SCREEN DIABETES SCREEN [facility] Start: 11-28-2024 DIABETES SCREEN DIABETES SCREEN [facility] Start: 10-15-2024 End: 10-15-2024 Patient encounter procedure 10/15/2024 8:30 AM EDT Office Visit Cardiology [address] [place] [address] [place] [address] [place] [address] 6 month follow up r/s from 06/12/2024 Cardiology Comment on above: 6 month follow up r/s from 06/12/2024 Start: 10-10-2024 BP Controlled (<130/80) BP Controlled (<130/80) [facility] Start: 08-08-2024 BP Controlled (<130/80) BP Controlled (<130/80) [facility] Start: 07-23-2024 End: 07-23-2024 Patient encounter procedure 07/23/2024 8:30 AM EST Office Visit Cardiology [address] [place] [address] [place] [address] [place] [address] follow up 6 months Cardiology Comment on above: follow up 6 months Start: 07-15-2024 Advance Directive Discussion Advance Directive Discussion [facility] Start: 07-11-2024 DIABETES SCREEN DIABETES SCREEN [facility] Start: 05-20-2024 Hepatitis B surface antibody level LDL Cholesterol [facility] Start: 05-17-2024 BP Controlled (<130/80) BP Controlled (<130/80) [facility] Start: 03-15-2024 Covid-19 Vaccine ( season) Covid-19 Vaccine () [facility] Start: 03-15-2024 Influenza vaccination Influenza Vaccine (#[facility]) [facility] Start: 01-09-2024 End: 01-09-2024 Patient encounter procedure 01/09/2024 11:00 AM EDT Office Visit Cardiology [address] [facility] [place] [address] [place] [address] [place] [address] 6 month follow up Cardiology Comment on above: 6 month follow up Start: 11-28-2023 End: 02-27-2024 Basic metabolic 2000 panel - Serum or Plasma BASIC METABOLIC PANEL Lab Routine Persistent atrial fibrillation (HCC) Expected: 11/28/2023 (Approximate), Expires: 02/27/2024 [facility] Comment on above: Expected: 11/28/2023 (Approximate), Expi res: 02/27/2024 Start: 11-28-2023 End: 02-27-2024 CBC panel - Blood by Automated count COMPLETE BLOOD COUNT Lab Routine Persistent atrial fibrillation (HCC) Expected: 11/28/2023 (Approximate), Expires: 02/27/2024 [facility] Comment on above: Expected: 11/28/2023 (Approximate), Expi res: 02/27/2024 Start: 11-28-2023 End: 02-27-2024 Magnesium [Mass/volume] in Serum or Plasma MAGNESIUM Lab Routine Persistent atrial fibrillation (HCC) Expected: 11/28/2023 (Approximate), Expires: 02/27/2024 [facility] Comment on above: Expected: 11/28/2023 (Approximate), Expi res: 02/27/2024 Start: 11-28-2023 End: 11-28-2023 ambulatory 11/28/2023 8:30 AM EDT Results Only [facility] [address] [place] [address] [place] [address] [facility] Start: 11-15-2023 End: 11-15-2023 Patient encounter procedure 11/15/2023 8:30 AM EDT Office Visit Cardiology [address] [place] [address] ekg Cardiology Comment on above: ekg Start: 10-04-2023 Advance Directive Discussion Advance Directive Discussion [facility] Start: 10-04-2023 Pneumococcal Vaccine: 65+ (1 of 1 - PCV) Pneumococcal Vaccine: 65+ (1 of 1 - PCV) [facility] Start: 08-03-2023 BP CONTROLLED (<130/80) BP CONTROLLED (<130/80) [facility] Start: 07-15-2023 Behavioral Health Screening Behavioral Health Screening [facility] Start: 07-15-2023 Depression Assessment Depression Assessment [facility] Start: 05-18-2023 Hepatitis B surface antibody level LDL CHOLESTEROL [facility] Start: 05-17-2023 End: 08-16-2023 Lipid 1996 panel - Serum or Plasma LIPID PANEL BASIC Lab Routine Coronary artery disease involving [place] heart without angina pectoris, unspecified vessel or lesion type Expected: 05/17/2023, Expires: 08/16/2023 [facility] Work Phone: Comment on above: Expected: 05/17/2023, Expires: Start: 03-15-2023 Covid-19 Vaccine () Covid-19 Vaccine () [facility] Start: 03-15-2023 Influenza vaccination [facility] Start: 11-28-2022 Hepatitis B surface antibody level LDL CHOLESTEROL [facility] Start: 11-01-2022 End: 01-01-2023 Basic metabolic 2000 panel - Serum or Plasma BASIC METABOLIC PNL Lab Routine Paroxysmal atrial fibrillation (HCC) Expected: 11/01/2022, Expires: 01/01/2023 [facility] Work Phone: Comment on above: Expected: 11/01/2022, Expires: 3 Start: 11-01-2022 End: 01-01-2023 CBC W Auto Differential panel - Blood CBC + DIFF Lab Routine Paroxysmal atrial fibrillation (HCC) Expected: 11/01/2022, Expires: 01/01/2023 [facility] Work Phone: Comment on above: Expected: 11/01/2022, Expires: 3 Start: 09-03-2022 Adult depression screening assessment DEPRESSION SCREENING [facility] Start: 07-15-2022 DEPRESSION ASSESSMENT DEPRESSION ASSESSMENT [facility] Start: 05-12-2022 Hepatitis B surface antibody level LDL CHOLESTEROL [facility] Start: 05-11-2022 End: 07-11-2022 Lipid 1996 panel - Serum or Plasma LIPID PANEL BASIC Lab Routine Coronary artery disease involving [place] coronary artery of [place] heart, unspecified whether angina present Expected: 05/11/2022, Expires: 07/11/2022 [facility] Work Phone: Comment on above: Expected: 05/11/2022, Expires: 2 Start: 03-15-2022 Influenza vaccination [facility] Start: 11-28-2021 End: 01-28-2022 Basic metabolic 2000 panel - Serum or Plasma BASIC METABOLIC PNL Lab Routine Coronary artery disease involving [place] coronary artery of [place] heart, unspecified whether angina present Expected: 11/28/2021, Expires: 01/28/2022 [facility] Work Phone: Comment on above: Expected: 11/28/2021, Expires: 2 Start: 11-28-2021 End: 01-28-2022 CBC panel - Blood by Automated count CBC Lab Routine Coronary artery disease involving [place] coronary artery of [place] heart, unspecified whether angina present Expected: 11/28/2021, Expires: 01/28/2022 [facility] Work Phone: Comment on above: Expected: 11/28/2021, Expires: 2 Start: 11-09-2021 End: 01-09-2022 Basic metabolic 2000 panel - Serum or Plasma BASIC METABOLIC PNL Lab Routine Under observation for suspected coronary artery disease Expected: 11/09/2021, Expires: 01/09/2022 [facility] Work Phone: Comment on above: Expected: 11/09/2021, Expires: 2 Start: 11-09-2021 End: 01-09-2022 LIPID PANEL BASIC LIPID PANEL BASIC Lab Routine Under observation for suspected coronary artery disease Expected: 11/09/2021, Expires: 01/09/2022 [facility] Work Phone: Comment on above: Expected: 11/09/2021, Expires: 2 Start: 07-15-2021 DEPRESSION ASSESSMENT DEPRESSION ASSESSMENT [facility] Start: 07-14-2021 COVID-19 VACCINE (4 - Booster for Moderna series) COVID-19 VACCINE (4 - Booster for Moderna series) [facility] Start: 2018 RSV Vaccine (1 - 1-dose 60+ series) RSV Vaccine (1 - 1-dose 60+ series) [facility] Start: 2013 PROSTATE CANCER SCREENING DISCUSSION PROSTATE CANCER SCREENING DISCUSSION [facility] Start: 2008 Pneumococcal Vaccine: 50+ (1 of 1 - PCV) Pneumococcal Vaccine: 50+ (1 of 1 - PCV) [facility] Start: 2008 SHINGRIX VACCINE (1 of 2) SHINGRIX VACCINE (1 of 2) [facility] Start: 10-04-2003 COLOGUARD (FIT-DNA) COLOGUARD (FIT-DNA) [facility] Start: 10-04-2003 Colonoscopy COLONOSCOPY [facility] Start: 10-04-2003 COLORECTAL CANCER SCREENING COLORECTAL CANCER SCREENING [facility] Start: 10-04-[address] COLONOGRAPHY [facility] Start: 10-04-2003 FECAL OCCULT BLOOD FECAL OCCULT BLOOD [facility] Start: 10-04-2003 Screening for malignant neoplasm of colon [facility] Start: 10-04-2003 SIGMOIDOSCOPY SIGMOIDOSCOPY [facility] Start: 1977 Urine microalbumin profile [facility] Start: 1976 ANNUAL PCP TEAM CHRONIC DISEASE VISIT ANNUAL PCP TEAM CHRONIC DISEASE VISIT [facility] Start: 1976 Anxiety Screening Anxiety Screening [facility] Start: 1976 BP CONTROLLED (<130/80) BP CONTROLLED (<130/80) [facility] Start: 1976 Depression Screening Depression Screening [facility] Start: 1976 HEPATITIS C SCREENING HEPATITIS C SCREENING [facility] Start: 1976 Hepatitis C screening Hepatitis C Screening [facility] Start: 1976 HIV SCREENING HIV SCREENING [facility] Start: 1976 HIV screening HIV Screening [facility] Start: 10-04-1963 COVID-19 VACCINE (#1) COVID-19 VACCINE (#1) [facility] Start: 10-04-1963 COVID-19 VACCINE (1) COVID-19 VACCINE (1) [facility] Start: 04-05-1959 COVID-19 VACCINE (#1) COVID-19 VACCINE (#1) [facility] Cardioversion electi ve arrhythmia internal spx CARDIOVERSION, ELECTIVE, ELECTRICAL Cardiology Routine Persistent atrial fibrillation (HCC) Ordered: 11/21/2023 [facility] Work Phone: Comment on above: Ordered: 11/21/2023 Comprehensive metabo lic 2000 panel - Serum or Plasma [facility] End: 12-09-2022 Cta hrt cornry art/bypass grfts contrst 3d post CTA CORONARY W IVCON Radiology Routine Under observation for suspected coronary artery disease Abnormal nuclear stress test 1 Occurrences starting 11/09/2021 until 12/09/2022 [facility] Work Phone: Comment on above: 1 Occurrences starting 11/09/2021 until 12/09/2022 End: 11-09-2022 ECG COMPLETE ECG COMPLETE ECG Routine Persistent atrial fibrillation (HCC) 1 Occurrences starting 11/09/2021 until 11/09/2022 [facility] Work Phone: Comment on above: 1 Occurrences starting 11/09/2021 until 11/09/2022 End: 05-10-2023 ECG COMPLETE ECG COMPLETE ECG Routine Persistent atrial fibrillation (HCC) 1 Occurrences starting 05/10/2022 until 05/10/2023 [facility] Work Phone: Comment on above: 1 Occurrences starting 05/10/2022 until 05/10/2023 End: 11-02-2023 ECG COMPLETE ECG COMPLETE ECG Routine Persistent atrial fibrillation (HCC) 1 Occurrences starting 11/01/2022 until 11/02/2023 [facility] Work Phone: Comment on above: 1 Occurrences starting 11/01/2022 until 11/02/2023 ECG COMPLETE ECG COMPLETE ECG 11/01/2022 9:02 AM EDT [facility] End: 01-18-2024 ECG COMPLETE ECG COMPLETE ECG Routine Persistent atrial fibrillation (HCC) 1 Occurrences starting 01/17/2023 until 01/18/2024 [facility] Work Phone: Comment on above: 1 Occurrences starting 01/17/2023 until 01/18/2024 ECG COMPLETE ECG COMPLETE ECG 01/17/2023 8:35 AM T [facility] ECG COMPLETE [facility] Work Phone: Comment on above: Ordered: 11/08/2023 End: 11-07-2024 ECG COMPLETE ECG COMPLETE ECG Routine Persistent atrial fibrillation (HCC) 1 Occurrences starting 11/08/2023 until 11/07/2024 [facility] Comment on above: 1 Occurrences starting 11/08/2023 until 11/07/2024 ECG COMPLETE [facility] Work Phone: Comment on above: Ordered: 01/09/2024 ECG COMPLETE [facility] Work Phone: Comment on above: Ordered: 10/15/2024 ECG COMPLETE ECG COMPLETE ECG 01/19/2025 7:55 AM EDT [facility] End: 11-09-2022 Echocardiography ECHO Cardiology Routine Under observation for suspected coronary artery disease Essential hypertension Persistent atrial fibrillation (HCC) Pulmonary hypertension, unspecified (HCC) 1 Occurrences starting 11/09/2021 until 11/09/2022 [facility] Work Phone: Comment on above: 1 Occurrences starting 11/09/2021 until 11/09/2022 End: 01-19-2026 Echocardiography ECHO Cardiology Routine Atrial fibrillation, persistent (HCC) History of cardiac radiofrequency ablation 1 Occurrences starting 01/19/2025 until 01/19/2026 [facility] Work Phone: Comment on above: 1 Occurrences starting 01/19/2025 until 01/19/2026 [facility] Immunizations Immunization Date Immunization Notes Care Provider Shana andrade 05-13-2024 influenza virus vaccine, unspecified formulation Johnna Victoria APRN.CNP Work Phone: [facility] 04-30-2023 influenza virus vaccine, unspecified formulation Layla Roger PA-C Work Phone: [facility] 05-15-2022 COVID-19 Pfizer (bivalent) Tae Martinez Other [facility] 05-02-2022 influenza, injectabl e, quadrivalent, contains preservative Carlos Garcia MD Work Phone: [facility] 05-02-2022 Seasonal, quadrivalent, recombinant, injectable influenza vaccine, preservative free Tae Martinez Other [facility] 05-02-2022 influenza virus vaccine, unspecified formulation Carlos Garcia MD Work Phone: [facility] 07-12-2021 zoster vaccine recombinant Tae Martinez Other [facility] 05-19-2021 COVID-19 original vaccine, booster dose, monovalent (MODERNA) Carlos Garcia MD Work Phone: [facility] 05-15-2021 zoster vaccine recombinant Tae Martinez Other [facility] 04-21-2021 influenza virus vaccine, split virus (incl. purified surface antigen) Tae Martinez Other [facility] [employer] Other 04-21-2021 influenza virus vaccine, unspecified formulation [facility] 10-15-2020 COVID-19 original vaccine, full dose, monovalent (MODERNA) Carlos Garcia MD Work Phone: [facility] 09-17-2020 COVID-19 original vaccine, full dose, monovalent (MODERNA) Carlos Garcia MD Work Phone: [facility] 06-19-2018 influenza virus vaccine, split virus (incl. purified surface antigen) Tae Martinez Other [facility] [employer] Other 06-19-2018 influenza virus vaccine, unspecified formulation [facility] 06-19-2018 Influenza, injectabl e, Madin Maryan Canine Kidney, preservative free, quadrivalent Carlos Garcia MD Work Phone: [facility] 04-04-2018 diphtheria, tetanus toxoids and acellular pertussis vaccine, unspecified formulation Tae Martinez Other [facility] 06-25-2017 influenza, injectabl e, quadrivalent, preservative free Carlos Garcia MD Work Phone: [facility] 06-25-2017 tetanus and diphther ia toxoids, adsorbed, preservative free, for adult use (5 Lf of tetanus toxoid and 2 Lf of diphtheria toxoid) Tae Martinez Other [facility] 06-22-2016 influenza virus vaccine, split virus (incl. purified surface antigen) Tae Martinez Other [facility] Other 06-22-2016 influenza virus vaccine, unspecified formulation [facility] 03-20-2015 influenza virus vaccine, split virus (incl. purified surface antigen) Tae Martinez Other [facility] Other 03-20-2015 influenza virus vaccine, unspecified formulation [facility] Payers Date Payer Category Payer Private Health Insurance [id number] 2015 Unknown MMO MMO DAN[employer] [id number] 2015-Present [phone] [address] [address] [place] [address] O [id number] 2015 Unknown [id number] 1959 Unknown [id number] 1960 Unknown [id number] 1958 Unknown [id number] Unknown Regular Insurance [id number] Social History Date Type Detail Facility Start: 03-03-2021 End: 03-06-2022 Tobacco smoking status NHIS Never smoked tobacco [facility] Start: 03-03-2021 End: 03-06-2022 Tobacco use and exposure Smokeless tobacco non-user [facility] Start: 11-09-2021 End: 11-08-2023 Alcohol intake Current drinker of alcohol (finding) [facility] Start: 03-03-2021 History SDOH Alcohol Frequency 1 [facility] Start: 03-03-2021 History SDOH Alcohol Comment rare [facility] Start: 1960 Sex Assigned At Male C [facility] Start: 10-30-2021 End: 05-10-2022 Exposure to SARS-CoV-2 (event) Not sure [facility] Start: 11-14-2022 End: 01-17-2023 History of Social function [facility] Start: 11-14-2022 End: 01-17-2023 Tobacco use panel [facility] Start: 03-02-2019 Adult Depression Screening Assessment 0 [facility] Start: 07-14-2021 Gender identity Identifies as male gender (finding) [facility] Start: 07-14-2021 Sexual orientation Heterosexual (fin ding) [facility] Start: 11-27-2023 End: 01-19-2025 Alcohol intake Ex-drinker (finding) [facility] Start: 12-03-2024 End: 12-03-2024 Sex Male (finding) [facility] Goals Date Patient Goal Desired Activity /State Personal health goal Clinical Notes 11-09-2021 to 04-02-2025 Telephone Encounter - Katlyn Ramos RN - 03/08/2025 3:15 PM EDTTelephone Encounter - Katlyn Ramos RN - 03/08/2025 3:15 PM EDTTelephone Encounter - Katlyn Ramos RN - 03/08/2025 2:40 PM EDT Note Date & Type Note Facility 04-02-2025 Note HNO ID: [id number] Author: ANTOINETTE HORN MD Service: ? Author Type: Physician Type: Progress Notes Filed: 04/02/2025 14:26 Note Text: Distance Health/Virtual Visit Through [employer] I have communicated my name and active licensure. The patient's identity and physical location ([place]) were verified at the time of this visit. Either the patient or their legal merchandising representative has been informed of the risks and benefits of -- and alternatives to -- treatment through a remote evaluation and consents to proceed with the evaluation remotely. HISTORY OF PRESENT ILLNESS: Cayt Gibbonsg is presenting for hypothyroidism. Requesting provider: Carlos Garcia MD Patient has hypothyroidism diagnosed per labs December, done on routine labs and confirmed by labs March 05, 2025 He had A-fib and had cardioversion on January 14, 2025. Patient started levothyroxine 50 mcg daily per his PCP, started taking ~ 03/11/25. He is back on A-fib after the start of his medication. He has chronic A-fib. He is using a gel capsule of levothyroxine. Patient has associated CAD. He has no chest pain. Patient has no frequent defecation or constipation. Patient has mild weight gain, attributed to decreased activities and good appetite. Patient used to be on Amiodarone for a short period of time, October-January 2023. He had none since then Patient has no family history of thyroid condition. Review of Systems Constitutional: Negative for fatigue, night sweats and recent unintentional weight change. HENT: Negative for trouble swallowing, postnasal drip and thyroid pain (lower neck). Eyes: Negative for visual disturbance. Respiratory: Negative for difficulty breathing. Cardiovascular: Negative for chest pain and leg swelling. Gastrointestinal: Negative for heartburn, nausea, vomiting, abdominal pain, diarrhea and constipation. Genitourinary: Positive for frequent urination. Negative for urgency and slower stream. Musculoskeletal: Negative for myalgias, muscle weakness and bone pain. Skin: Negative for skin color change. Neurological: Negative for dizziness, headaches and numbness. Endo/Heme/Allergies: Positive for changes in body hair. Negative for polydipsia, cold intolerance when others are comfortable, heat intolerance when others are comfortable, hot flashes and flushing. Answers submitted by the patient for this visit: Endocrine Review of Systems (Submitted on 03/31/2025) Blood Clots?: No Joint pain or stiffness: Yes PAST MEDICAL HISTORY Diagnosis Date Atrial fibrillation (HCC) BPH (benign prostatic hyperplasia) CAD (coronary artery disease) Elevated TSH Essential hypertension Meningitis spinal (HCC) 1964 Osteoarthritis of both knees Other hyperlipidemia Rheumatoid arthritis (HCC) Sleep apnea 10/15/2023 Under observation for suspected coronary artery disease PAST SURGICAL HISTORY Procedure Laterality Date ARTHROSCOPY KNEE DIAGNOSTIC W/WO SYNOVIAL BX SPX Right 2013 SHX CARDIAC RADIOFREQUENCY ABLATION 07/18/2022 PVI/PWI (Afib) TONSILLECTOMY HX Current Medications 04/02/2025 CARDIOVASCULAR Medication Dosage Pharm Subclass benazepril (LOTENSIN) 20 mg tablet Take 20 mg by mouth once daily. RUSSELL Inhibitors ezetimibe (ZETIA) 10 mg tablet Take 1 tablet by mouth daily. Antihyperlipidemic - Selective Cholesterol Absorption Inhibitor metoprolol succinate ER (TOPROL XL) 25 mg 24 hr tablet Take 1 tablet by mouth once daily. Beta Blockers Cardiac Selective nitroglycerin sublingual (NITROQUICK) 0.4 mg SL tablet Dissolve 1 tablet under the tongue every 5 minutes as needed for chest pain. If no pain relief call 911. Antianginal - Coronary Vasodilators (Nitrates) rosuvastatin (CRESTOR) 40 mg tablet Take 1 tablet by mouth daily at bedtime. Antihyperlipidemic - HMG CoA Reductase Inhibitors (statins) ANTICOAGULANTS Medication Dosage Pharm Subclass ELIQUIS 5 mg tab(s) Take 1 tablet by mouth twice daily. Direct Factor Xa Inhibitors OTHER Medication Dosage Pharm Subclass Cholecalciferol, Vitamin D3, 50 mcg (2,000 unit) cap Take 2,000 Units by mouth once daily. Vitamins - D Derivatives Coenzyme Q10 200 mg cap Take 200 mg by mouth once daily. Alternative Therapy - Unclassified glucosamine/chondr prieto A sod (OSTEO BI-FLEX ORAL) Take 2 tablets by mouth one time only. Alternative Therapy - Antiarthritics levothyroxine (SYNTHROID) 50 mcg tablet Take 1 tablet by mouth once daily. Thyroid Hormones - Synthetic T4 (Thyroxine) MEN'S MULTI-VITAMIN ORAL Take by mouth once daily. Multivitamins S-Adenosylmethionine 400 mg tab Take 400 mg by mouth once daily. Alternative Therapy - Unclassified Zinc 50 mg tab Take 1 tablet by mouth once daily. 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 [facility] 03-08-2025 Telephone encounter Note Fleccanide not on medication list at Dr. Janes hall. flecainide 100 mg tablet Commonly known as: TAMBOCOR Take 1 tablet by mouth every 12 hours. * flecainide 100 mg tablet Commonly known as: TAMBOCOR Take 1 tablet by mouth two times a day. Patient should start on February 11, 2025. Johnna appt. In the medication note history it states D/alex by Dr. Longo . If he is still suppose to be on please reorder [facility] 03-08-2025 Miscellaneous Notes Fleccanide not on medication list at Dr. Marrero appt. flecainide 100 mg tablet Commonly known as: TAMBOCOR Take 1 tablet by mouth every 12 hours. * flecainide 100 mg tablet Commonly known as: TAMBOCOR Take 1 tablet by mouth two times a day. Patient should start on February 11, 2025. Johnna appt. In the medication note history it states D/alex by Dr. Longo . If he is still suppose to be on please reorder madelin Kohli is a 64 year old male with persistent drug refractory atrial fibrillation (h/o multiple direct cardioversion, 07-18-2022: s/p PVI, PWI, flecainide previously discontinued, reoccurrence of the arrhythmia December 2024, restarted flecainide, s/p DCC, [id number]: 2%). ECG sinus bradycardia, no reoccurrence of the arrhythmia Discussed with the patient the following: goal rhythm control strategy, modifiable and non modifiable risk factors ex. uncontrolled hypertension, alcohol, increase in BMI -Avoid stopping Metoprolol without also discontinuing Flecainide, as these medications work together to manage your heart rhythm -if he has symptoms due to bradycardia then consideration in the future of Tikosyn medication requires a hospital stay for initiation and regular follow-up testing, including blood work and EKGs, every three months. -the importance of lifestyle modifications documented in this encounter [facility] 03-08-2025 Telephone encounter Note madelin Kohli is a 64 year old male with persistent drug refractory atrial fibrillation (h/o multiple direct cardioversion, 07-18-2022: s/p PVI, PWI, flecainide previously discontinued, reoccurrence of the arrhythmia December 2024, restarted flecainide, s/p DCC, [id number]: 2%). ECG sinus bradycardia, no reoccurrence of the arrhythmia Discussed with the patient the following: goal rhythm control strategy, modifiable and non modifiable risk factors ex. uncontrolled hypertension, alcohol, increase in BMI -Avoid stopping Metoprolol without also discontinuing Flecainide, as these medications work together to manage your heart rhythm -if he has symptoms due to bradycardia then consideration in the future of Tikosyn medication requires a hospital stay for initiation and regular follow-up testing, including blood work and EKGs, every three months. -the importance of lifestyle modifications [facility] 03-04-2025 Miscellaneous Notes Addended by: CARLOS GARCIA on: 03/04/2025 11:38 AM Modules accepted: Orders documented in this encounter [facility] 03-04-2025 Note Addended by: CARLOS RAYO on: 03/04/2025 11:38 AM Modules accepted: Orders [facility] 03-04-2025 History of Present illness Narrative Images from the original note were not included. [facility] Department of Cardiovascular Medicine SECTION OF CARDIOLOGY OUTPATIENT VISIT DATE 03/04/2025 OUTPATIENT VISIT TYPE ESTABLISHED CHIEF COMPLAINT: Cardiovascular follow-up HISTORY OF PRESENT ILLNESS: Mr. Kohli is a pleasant 64 year old male here for cardiovascular follow-up. In interim, No CP/sob/major bleeding/leg swelling. Knee issues. The following portions of the patient's history were reviewed and updated as appropriate, allergies, current medications, past medical, social, surgical, and family history and problem list. I have personally interviewed, confirmed and edited the above information if obtained by others. CURRENT MEDICATIONS: metoprolol succinate ER (TOPROL XL) 25 mg 24 hr tablet Take 1 tablet by mouth once daily. ELIQUIS 5 mg tab(s) Take 1 tablet by mouth twice daily. ezetimibe (ZETIA) 10 mg tablet Take 1 tablet by mouth daily. rosuvastatin (CRESTOR) 40 mg tablet Take 1 tablet by mouth daily at bedtime. nitroglycerin sublingual (NITROQUICK) 0.4 mg SL tablet Dissolve 1 tablet under the tongue every 5 minutes as needed for chest pain. If no pain relief call 911. Cholecalciferol, Vitamin D3, 50 mcg (2,000 unit) [...] Take 400 mg by mouth once daily. Physical Exam BP 124/66 (BP Site: Right Arm, BP Position: Sitting, BP Cuff Size: Regular Adult) Pulse (!) 48 Ht 188 cm (6' 2 ) Wt 103.2 kg (227 lb 8.2 oz) SpO2 96% BMI 29.21 kg/m Gen: alert, no acute distress, with HEENT: normocephalic, atraumatic, no rinorrhea, no congestion, normal hearing, EOMI, no eye discharge Heart: no murmurs, S1/S2+, regular rhythm, bradycardia Lungs: no wheezing, rales, symmetric expansion, nonlabored Abdomen: soft, nontender, nondistended Musculoskeletal: no edema, nontender Neurological: no focal deficits, alert, oriented Psychatric: cooperative, appropriate Pertinent Diagnostics/Labs/Data reviewed (ECG and echo listed personally reviewed) and include: 02/02/2025 TTE: 1+ TR, trace-1+ AR, 1+ ME, LVEF 68%, mild LVH, normal RVSF/size, normal LA/RA size, RVSP 39/RAP 3 12/13/21 TTE: LVEF69%, normal RVSF/size, normal LA/RA size, 1+ TR, 1+ ME, mid ascending 3.9cm 01/19/2021 TTE: LVEF 55-60%, RVSP 35-45mmHg, severe biatrial enlargement, mod TR, RV moderately dilated, mild-mod MR, mild LVH, Pharmacologic MPI 01/19/2021: partial reversibility in inferior wall, fixed defect in apex, LVEF 49%, 12/19/21 inasive Coronary angiogram: LVEDP 22, LM normal; LAD/Cx/RCA ectatic; mid-distal LAD 30-40% 11/28/21 CCTA: short LM no disesease, mLAD 70-90%, mCx 50-70%, dRCA <25%; ascending aorta 3.8cm 05/20/2023: LDL 72 05/18/22: LDL 75, TG 77, HDL 40, TC 130 05/12/2021: LDL 107, HDL 44, TC [...] 08/22/2021 PVI/PWI ablation 07/18/2022 DCCV for Afib 11/05/22, 10/15/2023, 11/27/2023, 01/14/2025 Other: HTN, HLD, sleep apnea (not on PAP therapy), OA, ??RA (not entirely clear), BPH, hx of abnl TSH Impression: Initial visit on 03/03/2021: AF discussion, OAC discussion, CAD discussion. 10/2021: Extremely active otherwise. CCTA then subsequent coronary angiogram. 05/11/22: Doing well. Risk factor modification. 05/18/23: Doing well. Repeat lipids. 03/04/2025: Some AF in interim. Plan: Apixaban 5mg bid Metoprolol-XL 25mg every day Rosuvastatin 40mg every day, CoQ 10 Ezetimibe 10mg every day Likely has Hypothyroid, probably should start therapy - Endocrinology referral RTC ~ 9 months Thank you, CONTACT INFORMATION: Carlos Garcia M.D. Cardiovascular Medicine Staff Kevin Harkins [facility] Mail Code [id number] [facility] [place] [address] documented in this encounter [facility] 03-04-2025 Note HNO ID: [id number] Author: CARLOS GARCIA MD Service: ? Author Type: Physician Type: Progress Notes Filed: 03/04/2025 11:37 Note Text: [facility] Department of Cardiovascular Medicine SECTION OF CARDIOLOGY OUTPATIENT VISIT DATE 03/04/2025 OUTPATIENT VISIT TYPE ESTABLISHED CHIEF COMPLAINT: Cardiovascular follow-up HISTORY OF PRESENT ILLNESS: Mr. Kohli is a pleasant 64 year old male here for cardiovascular follow-up. In interim, No CP/sob/major bleeding/leg swelling. Knee issues. The following portions of the patient's history were reviewed and updated as appropriate, allergies, current medications, past medical, social, surgical, and family history and problem list. I have personally interviewed, confirmed and edited the above information if obtained by others. CURRENT MEDICATIONS: metoprolol succinate ER (TOPROL XL) 25 mg 24 hr tablet Take 1 tablet by mouth once daily. ELIQUIS 5 mg tab(s) Take 1 tablet by mouth twice daily. ezetimibe (ZETIA) 10 mg tablet Take 1 tablet by mouth daily. rosuvastatin (CRESTOR) 40 mg tablet Take 1 tablet by mouth daily at bedtime. nitroglycerin sublingual (NITROQUICK) 0.4 mg SL tablet Dissolve 1 tablet under the tongue every 5 minutes as needed for chest pain. If no pain relief call 911. Cholecalciferol, Vitamin D3, 50 mcg (2,000 unit) [...] Take 400 mg by mouth once daily. Physical Exam BP 124/66 (BP Site: Right Arm, BP Position: Sitting, BP Cuff Size: Regular Adult) Pulse (!) 48 Ht 188 cm (6' 2 ) Wt 103.2 kg (227 lb 8.2 oz) SpO2 96% BMI 29.21 kg/m? Gen: alert, no acute distress, with HEENT: normocephalic, atraumatic, no rinorrhea, no congestion, normal hearing, EOMI, no eye discharge Heart: no murmurs, S1/S2+, regular rhythm, bradycardia Lungs: no wheezing, rales, symmetric expansion, nonlabored Abdomen: soft, nontender, nondistended Musculoskeletal: no edema, nontender Neurological: no focal deficits, alert, oriented Psychatric: cooperative, appropriate Pertinent Diagnostics/Labs/Data reviewed (ECG and echo listed personally reviewed) and include: 02/02/2025 TTE: 1+ TR, trace-1+ AR, 1+ ME, LVEF 68%, mild LVH, normal RVSF/size, normal LA/RA size, RVSP 39/RAP 3 12/13/21 TTE: LVEF69%, normal RVSF/size, normal LA/RA size, 1+ TR, 1+ ME, mid ascending 3.9cm 01/19/2021 TTE: LVEF 55-60%, RVSP 35-45mmHg, severe biatrial enlargement, mod TR, RV moderately dilated, mild-mod MR, mild LVH, Pharmacologic MPI 01/19/2021: partial reversibility in inferior wall, fixed defect in apex, LVEF 49%, 12/19/21 inasive Coronary angiogram: LVEDP 22, LM normal; LAD/Cx/RCA ectatic; mid-distal LAD 30-40% 11/28/21 CCTA: short LM no disesease, mLAD 70-90%, mCx 50-70%, dRCA <25%; ascending aorta 3.8cm 05/20/2023: LDL 72 05/18/22: LDL 75, TG 77, HDL 40, TC 130 05/12/2021: LDL 107, HDL 44, TC [...] 08/22/2021 PVI/PWI ablation 07/18/2022 DCCV for Afib 11/05/22, 10/15/2023, 11/27/2023, 01/14/2025 Other: HTN, HLD, sleep apnea (not on PAP therapy), OA, ??RA (not entirely clear), BPH, hx of abnl TSH Impression: Initial visit on 03/03/2021: AF discussion, OAC discussion, CAD discussion. 10/2021: Extremely active otherwise. CCTA then subsequent coronary angiogram. 05/11/22: Doing well. Risk factor modification. 05/18/23: Doing well. Repeat lipids. 03/04/2025: Some AF in interim. Plan: Apixaban 5mg bid Metoprolol-XL 25mg every day Rosuvastatin 40mg every day, CoQ 10 Ezetimibe 10mg every day Likely has Hypothyroid, probably should start therapy - Endocrinology referral RTC ~ 9 months Thank you, CONTACT INFORMATION: Carlos Garcia M.D. Cardiovascular Medicine Staff Kevin Renee [facility] Mail Code [id number] [facility] [place] [address] [facility] 01-19-2025 Instructions Johnna Victoria APRN.[employer] - 01/19/2025 8:23 AM EDT please schedule echo upon availability Please schedule an appointment with new process engineering technician in three to six months documented in this encounter [facility] 01-19-2025 History of Present illness Narrative Images from the original note were not included. [facility] Department of Cardiovascular Medicine SECTION OF CARDIAC PACING and ELECTROPHYSIOLOGY OUTPATIENT VISIT DATE January 19, 2025 OUTPATIENT VISIT TYPE ESTABLISHED Recording using [employer] software for draft documentation of the visit was discussed with the patient/authorized merchandising representative; all questions welcomed and answered. Patient/authorized merchandising representative agreed to proceed PRIMARY CARE PHYSICIAN: Tae Martinez (Tosha) [address] [place] [address] CHIEF COMPLAINT: follow up s/p direct cardioversion HISTORY OF PRESENT ILLNESS: Mr. Kohli is a 64 year old male who presents today for previously evaluated by Dr. Longo, Dr. 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 He extremely high functioning with ADL, no complaints, reports feeling well following his recent cardioversion. He notes that his heart rate occasionally dips into the 45 bpm range but increases appropriately with activity, reaching the 70s depending on exertion level He denies chest pain, shortness of breath, orthopnea, cough, edema, palpitations, PND, lightheadedness or syncope. 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 Osteoarthritis of both knees Other hyperlipidemia Rheumatoid arthritis (HCC) Sleep apnea 10/15/2023 Under observation for suspected coronary artery disease PAST SURGICAL HISTORY Procedure Laterality Date ARTHROSCOPY KNEE DIAGNOSTIC W/WO SYNOVIAL BX SPX Right 2013 [facility] CARDIAC RADIOFREQUENCY ABLATION 07/18/2022 PVI/PWI (Afib) TONSILLECTOMY HX SOCIAL HISTORY Social History Tobacco Use Smoking status: Never Smokeless tobacco: Never Vaping Use Vaping status: Never Used Substance Use Topics Alcohol use: Not Currently Comment: rare Drug use: Never FAMILY HISTORY Problem Relation Age of Onset Coronary Artery Disease Father 57 smoker; mosaic worker Emphysema Paternal Grandfather ALLERGIES: ALLERGIES Allergen Reactions Penicillins Rash Sulfa (Sulfonamide * Swelling MEDICATIONS: ELIQUIS 5 mg tab(s) Take 1 tablet by mouth twice daily. ezetimibe (ZETIA) 10 mg tablet Take 1 tablet by mouth daily. flecainide (TAMBOCOR) 100 mg tablet Take 1 tablet by mouth every 12 hours. metoprolol succinate ER (TOPROL XL) 25 mg 24 hr tablet Take 1 tablet by mouth once daily. rosuvastatin (CRESTOR) 40 mg tablet Take 1 tablet by mouth daily at bedtime. nitroglycerin sublingual (NITROQUICK) 0.4 mg SL tablet Dissolve 1 tablet under the tongue every 5 minutes as needed for chest pain. If no pain relief call 911. Cholecalciferol, Vitamin D3, 50 mcg (2,000 unit) [...] by mouth once daily. REVIEW OF SYSTEMS: GENERAL: Negative for: Weight loss or gain, Fever or Chills, Weakness and Sleep difficulties. NECK: Negative for: Swelling, Pain, Stiffness RESPIRATORY: [...] Sweating, Frequent Urination, Frequent Thirst PHYSICAL EXAMINATION: General: Well appearing, in no acute distress, speaking in complete sentences. Neck: No jugular venous distention, no carotid bruits, carotids have a normal upstroke Lungs: Clear to auscultation bilaterally, no wheezing or rhonchi. Heart: Regular rhythm, slow rate, PMI not displaced, S1, S2 normal, no S3, no S4, no heaves, no rub and no murmur. Abdomen: Soft, nontender, bowel sounds normal, no palpable organomegaly, no bruits. Extremities: No peripheral edema . Grade 2/4 distal pulses bilaterally. Neuro: Oriented to person, place and time, alert, cooperative CARDIOVASCULAR MEDICINE TESTING: Reviewed VS, labs, previous cardiac testing EC01/19/25 EC01-14-25 LHC: 12-19-2021 THE CORONARY ARTERIES: 1. THE LEFT MAIN: [...] descending, circumflex and right coronary artery disease. ECHO: 12-13-2021 Technically difficult exam due to body habitus. [...] the prior echocardiographic exam performed on 03/17/21 ([facility]). Visualized aorta is borderline dilated. IMPRESSION: Mr. Kohli is a 64 year old male with persistent drug refractory atrial fibrillation (h/o multiple direct cardioversion, 07-18-2022: s/p PVI, PWI, flecainide previously discontinued, reoccurrence of the arrhythmia December 2024, restarted flecainide, s/p DCC, [id number]: 2%). ECG sinus bradycardia, no reoccurrence of the arrhythmia Discussed with the patient the following: goal rhythm control strategy, modifiable and non modifiable risk factors ex. uncontrolled hypertension, alcohol, increase in BMI -Avoid stopping Metoprolol without also discontinuing Flecainide, as these medications work together to manage your heart rhythm -if he has symptoms due to bradycardia then consideration in the future of Tikosyn medication requires a hospital stay for initiation and regular follow-up testing, including blood work and EKGs, every three months. -the importance of lifestyle modifications PLAN AND RECOMMENDATIONS: An echocardiogram (ultrasound of your heart) has been ordered to assess the structure and function of your heart. This will help determine if there are any changes, such as enlargement of the heart chambers, which could affect your treatment plan 2. Your thyroid function will need to be monitored regularly due to your history of amiodarone use, which can cause hypothyroidism. Please ensure your primary care physician continues to check your thyroid levels during routine visits. 3. Annual labs Follow up appointment: new process engineering technician in three to six months (prefers [facility] or [place] location), Dr. Garcia in February 2025 I spent 30-40 minutes in the visit, with more than 50% of the total [id number] time of the visit in counseling / coordination of care. CONTACT INFORMATION: Johnna Victoria APRN.CNP, 01/19/25 [facility] [id number] [place] [address] [address] [place] [address] documented in this encounter [facility] 01-19-2025 Note HNO ID: [id number] Author: JOHNNA VICTORIA APRN.CNP Service: ? Author Type: Nurse Practitioner Type: Progress Notes Filed: 01/19/2025 09:30 Note Text: [facility] Department of Cardiovascular Medicine SECTION OF CARDIAC PACING and ELECTROPHYSIOLOGY OUTPATIENT VISIT DATE January 19, 2025 OUTPATIENT VISIT TYPE ESTABLISHED Recording using ambient [employer] software for draft documentation of the visit was discussed with the patient/authorized merchandising representative; all questions welcomed and answered. Patient/authorized merchandising representative agreed to proceed PRIMARY CARE PHYSICIAN: Tae Martinez (Meek) [address] [place] [address] [place] [address] CHIEF COMPLAINT: follow up s/p direct cardioversion HISTORY OF PRESENT ILLNESS: Mr. Kohli is a 64 year old male who presents today for previously evaluated by Dr. Longo, Dr. Garcia for persistent drug refractory atrial fibrillation (h/o multiple direct cardioversion, 07-18-2022: s/p PVI, PWI, flecainide previously discontinued, reoccurrence of the arrhythmia December 2024, restarted flecainide, s/p DCC, [id number]: 2%), preserved LV systolic heart function (echo: 2021), Other PMH of hypertension, hyperlipidemia, BPH, osteoarthritis, h/o meningitis, RA, DICK, half-way anticoagulation. He extremely high functioning with ADL, no complaints, reports feeling well following his recent cardioversion. He notes that his heart rate occasionally dips into the 45 bpm range but increases appropriately with activity, reaching the 70s depending on exertion level He denies chest pain, shortness of breath, orthopnea, cough, edema, palpitations, PND, lightheadedness or syncope. 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 Osteoarthritis of both knees Other hyperlipidemia Rheumatoid arthritis (HCC) Sleep apnea 10/15/2023 Under observation for suspected coronary artery disease PAST SURGICAL HISTORY Procedure Laterality Date ARTHROSCOPY KNEE DIAGNOSTIC W/WO SYNOVIAL BX SPX Right 2013 SHX CARDIAC RADIOFREQUENCY ABLATION 07/18/2022 PVI/PWI (Afib) TONSILLECTOMY HX SOCIAL HISTORY Social History Tobacco Use Smoking status: Never Smokeless tobacco: Never Vaping Use Vaping status: Never Used Substance Use Topics Alcohol use: Not Currently Comment: rare Drug use: Never FAMILY HISTORY Problem Relation Age of Onset Coronary Artery Disease Father 57 smoker; mosaic worker Emphysema Paternal Grandfather ALLERGIES: ALLERGIES Allergen Reactions Penicillins Rash Sulfa (Sulfonamide * Swelling MEDICATIONS: ELIQUIS 5 mg tab(s) Take 1 tablet by mouth twice daily. ezetimibe (ZETIA) 10 mg tablet Take 1 tablet by mouth daily. flecainide (TAMBOCOR) 100 mg tablet Take 1 tablet by mouth every 12 hours. metoprolol succinate ER (TOPROL XL) 25 mg 24 hr tablet Take 1 tablet by mouth once daily. rosuvastatin (CRESTOR) 40 mg tablet Take 1 tablet by mouth daily at bedtime. nitroglycerin sublingual (NITROQUICK) 0.4 mg SL tablet Dissolve 1 tablet under the tongue every 5 minutes as needed for chest pain. If no pain relief call 911. Cholecalciferol, Vitamin D3, 50 mcg (2,000 unit) [...] by mouth once daily. REVIEW OF SYSTEMS: GENERAL: Negative for: Weight loss or gain, Fever or Chills, Weakness and Sleep difficulties. NECK: Negative for: Swelling, Pain, Stiffness RESPIRATORY: [...] Sweating, Frequent Urination, Frequent Thirst PHYSICAL EXAMINATION: General: Well appearing, in no acute distress, speaking in complete sentences. Neck: No jugular venous distention, no carotid bruits, carotids have a normal upstroke Lungs: Clear to auscultation bilaterally, no wheezing or rhonchi. Heart: Regular rhythm, slow rate, PMI not displaced, S1 (more content not included)... [facility] 01-14-2025 Telephone encounter Note Received request for refill of the following medications: Requested Prescriptions Pending Prescriptions Disp Refills flecainide (TAMBOCOR) 100 mg tablet 180 tablet Sig: Take 1 tablet by mouth every 12 hours. Patient requested a 90 day refill. Pharmacy verified and updated accordingly. Patient was last seen in cardiology office: 10-15-2024. Upcoming appointment scheduled: 01-20-2025. Labs: Hemoglobin (g/dL) Date Value 01/05/2025 14.3 08/14/2021 14.1 Hematocrit (%) Date Value 01/05/2025 42.2 08/14/2021 41.9 WBC (k/uL) Date Value 01/05/2025 8.80 08/14/2021 9.89 Platelet Count (k/uL) Date Value 01/05/2025 246 08/14/2021 258 Creatinine Date Value Ref Range Status 01/05/2025 0.69 (L) 0.73 - 1.22 mg/dL Final 11/25/2023 0.82 0.73 - 1.22 mg/dL Final [facility] 01-14-2025 Miscellaneous Notes Received request for refill of the following medications: Requested Prescriptions Pending Prescriptions Disp Refills flecainide (TAMBOCOR) 100 mg tablet 180 tablet Sig: Take 1 tablet by mouth every 12 hours. Patient requested a 90 day refill. Pharmacy verified and updated accordingly. Patient was last seen in cardiology office: 10-15-2024. Upcoming appointment scheduled: 01-20-2025. Labs: Hemoglobin (g/dL) Date Value 01/05/2025 14.3 08/14/2021 14.1 Hematocrit (%) Date Value 01/05/2025 42.2 08/14/2021 41.9 WBC (k/uL) Date Value 01/05/2025 8.80 08/14/2021 9.89 Platelet Count (k/uL) Date Value 01/05/2025 246 08/14/2021 258 Creatinine Date Value Ref Range Status 01/05/2025 0.69 (L) 0.73 - 1.22 mg/dL Final 11/25/2023 0.82 0.73 - 1.22 mg/dL Final documented in this encounter [facility] 01-07-2025 Telephone encounter Note already addressed in other encounter. Johnna Victoria APRN.CNP [facility] 01-07-2025 Miscellaneous Notes already addressed in other encounter. Johnna Victoria APRN.CNP documented in this encounter [facility] 01-07-2025 Telephone encounter Note Johnna Victoria APRN.CNP 01/07/25 12:30 PM Note I was able to discuss with patient lab results, and discussed with the primary care physician also his nursing staff. They plan to recheck the level in six weeks, and if abnormal then treat accordingly. I recommended to the patient to keep cardioversion for January 14, 2025. Verbal feedback completed. Johnna Victoria APRN.CNP [facility] Work Phone: 01-07-2025 Miscellaneous Notes Johnna Victoria APRN.CNP 01/07/25 12:30 PM Note I was able to discuss with patient lab results, and discussed with the primary care physician also his nursing staff. They plan to recheck the level in six weeks, and if abnormal then treat accordingly. I recommended to the patient to keep cardioversion for January 14, 2025. Verbal feedback completed. Johnna Victoria APRN.[employer] 01/07/25 7:11 AM Note I reviewed the T3, T4 normal level. Suspect primary hypothyroid for patient. I can start levothyroxine or he can call his primary care to start the medication (I am unable to do, since he not in the [facility] system). Then we can maintain appointment for cardioversion as scheduled. thank you Johnna Victoria APRN.[employer] Confirmed via [employer] with patient his availability for the now rescheduled cardioversion to 01/14/2025. Patient is agreeable to the date, will be performed by Dr. Kwan Marie at [facility]. Patient confirms compliance with Eliquis. Has an existing office [employer] appointment with Johnna Victoria on 01/20/2025. 01/14/2025 Procedure instructions submitted via [employer] for patient's review. Johnna's above notation was shared in [employer] with the patient, he is aware an office nurse will be contacting him to review. documented in this encounter [facility] 01-07-2025 Telephone encounter Note I was able to discuss with patient lab results, and discussed with the primary care physician also his nursing staff. They plan to recheck the level in six weeks, and if abnormal then treat accordingly. I recommended to the patient to keep cardioversion for January 14, 2025. Verbal feedback completed. Johnna Victoria APRN.[employer] [facility] 01-07-2025 Miscellaneous Notes I was able to discuss with patient lab results, and discussed with the primary care physician also his nursing staff. They plan to recheck the level in six weeks, and if abnormal then treat accordingly. I recommended to the patient to keep cardioversion for January 14, 2025. Verbal feedback completed. Johnna Victoria APRN.CNP I reviewed the T3, T4 normal level. Suspect primary hypothyroid for patient. I can start levothyroxine or he can call his primary care to start the medication (I am unable to do, since he not in the [facility] system). Then we can maintain appointment for cardioversion as scheduled. thank you Johnna Victoria APRN.CNP Patient's cardioversion for now has been rescheduled to 01/14/[address] Kwan Marie until lab results and recommendation is shared by Johnna Victoria CNP on how to proceed. Submitted a [employer] message to patient for review and communication. Attempted to have lab added on and they are not able to give me an answer. Spoke with the patient who is agreeable with Fatoumata plan and cancel the cardioversion for tommorow. Shared with cardiology nurseKatlyn to review recommendations after which if patient is agreeable, procedure flight crew scheduler will arrange cancellation of tomorrow's cardioversion. I am away from the office today. I reviewed the patients lab results. Please call him and give the following information: Electrolyte panel, blood count all normal thyroid level abnormal this could why he out of rhythm Recommendation: -I will add T3, T4 level to the current blood drawn. If the labs show hypothyroid then we can start levothyroxine and he will need to see his primary care in the future management. I would prefer to reschedule the cardioversion for one more week till we have our answer to the lab. I will FYI the plastic surgery nurse. Thank you Johnna Victoria APRN.[employer] documented in this encounter [facility] 01-07-2025 Telephone encounter Note 01/07/25 7:11 AM Note I reviewed the T3, T4 normal level. Suspect primary hypothyroid for patient. I can start levothyroxine or he can call his primary care to start the medication (I am unable to do, since he not in the [facility] system). Then we can maintain appointment for cardioversion as scheduled. thank you Johnna Victoria APRN.[employer] Confirmed via [employer] with patient his availability for the now rescheduled cardioversion to 01/14/2025. Patient is agreeable to the date, will be performed by Dr. Kwan Marie at [facility]. Patient confirms compliance with Eliquis. Has an existing office [employer] appointment with Johnna Victoria on 01/20/2025. 01/14/2025 Procedure instructions submitted via [employer] for patient's review. Johnna's above notation was shared in [employer] with the patient, he is aware an office nurse will be contacting him to review. [facility] 01-07-2025 Telephone encounter Note I reviewed the T3, T4 normal level. Suspect primary hypothyroid for patient. I can start levothyroxine or he can call his primary care to start the medication (I am unable to do, since he not in the [facility] system). Then we can maintain appointment for cardioversion as scheduled. thank you Johnna Victoria APRN.[employer] [facility] 01-06-2025 Telephone encounter Note Patient's cardioversion for now has been rescheduled to 01/14/[address] Kwan Marie until lab results and recommendation is shared by Johnna Victoria CNP on how to proceed. Submitted a [employer] message to patient for review and communication. T [facility] Work Phone: 01-06-2025 Telephone encounter Note Attempted to have lab added on and they are not able to give me an answer. Spoke with the patient who is agreeable with Fatoumata plan and cancel the cardioversion for tommorow. T [facility] 01-06-2025 Telephone encounter Note Shared with cardiology nurse, Katlyn to review recommendations after which if patient is agreeable, procedure flight crew scheduler will arrange cancellation of tomorrow's cardioversion. [facility] 01-06-2025 Telephone encounter Note I am away from the office today. I reviewed the patients lab results. Please call him and give the following information: Electrolyte panel, blood count all normal thyroid level abnormal this could why he out of rhythm Recommendation: -I will add T3, T4 level to the current blood drawn. If the labs show hypothyroid then we can start levothyroxine and he will need to see his primary care in the future management. I would prefer to reschedule the cardioversion for one more week till we have our answer to the lab. I will FYI the plastic surgery nurse. Thank you Johnna Victoria APRN.TIFFANIE [facility] 12-29-2024 Telephone encounter Note I reviewed the message I called the patient to discuss. He still has flecainide left from before. Recommendation: -increase the metoprolol 25mg XL daily -tonight take flecainide 150mg x1 -tomorrow morning restart flecainide 100mg BID -if this puts him back in rhythm let us know -I will have secretaries call him to arrange for a follow up appointment, I will LELIAI Dr. Garcia also if he wants to schedule cardioversion after 1-2 weeks if out of rhythm still -medication list updated, thankful for the call Johnna Victoria APRN.CNP Secretaries: please schedule follow up appointment [facility] 12-29-2024 Miscellaneous Notes I reviewed the message I called the patient to discuss. He still has flecainide left from before. Recommendation: -increase the metoprolol 25mg XL daily -tonight take flecainide 150mg x1 -tomorrow morning restart flecainide 100mg BID -if this puts him back in rhythm let us know -I will have secretaries call him to arrange for a follow up appointment, I will JORGE LUIS Garcia also if he wants to schedule cardioversion after 1-2 weeks if out of rhythm still -medication list updated, thankful for the call Johnna Victoria APRN.CNP Secretaries: please schedule follow up appointment Pt calling Hx Afib Last appointment on 10/15/24, provider left as of 12/17/24 States has seen [employer] States last refill of metoprolol succinate ER did not go through to his pharmacy, told to him by [facility] Today back in Afib around 11:30am, has [employer] watch HR fluctuates from 68 to 136 bpm- Is driving now but did check HR, now it is 99 bpm Denies dizziness/sob/chest pain/palpitations Takes Elliauis 5 mg twice daily Metroprolol succinate ER, 12.5 mg at bedtime (dose was decreased on 01/08/25 from 25 mg's ) States [facility] was [facility] a while [facility] told him to stop taking it / but it is on his med list Will need an appointment with EP since Dr. Carcamo is not longer his provider/ left practice Please call him back to schedule an appointment He states he is willing to see anyone/ has seen Layla Pt can be reached at: [phone], ok to leave a message documented in this encounter [facility] 12-29-2024 Telephone encounter Note Pt calling Hx Afib Last appointment on 10/15/24, provider left as of 12/17/24 States has seen [employer] States last refill of metoprolol succinate ER did not go through to his pharmacy, told to him by [facility] Today back in Afib around 11:30am, has [employer] watch HR fluctuates from 68 to 136 bpm- Is driving now but did check HR, now it is 99 bpm Denies dizziness/sob/chest pain/palpitations Takes Elliauis 5 mg twice daily Metroprolol succinate ER, 12.5 mg at bedtime (dose was decreased on 01/08/25 from 25 mg's ) States Flecainide was discontinued a while [facility] provider told him to stop taking it / but it is on his med list Will need an appointment with EP since Dr. Carcamo is not longer his provider/ left practice Please call him back to schedule an appointment He states he is willing to see anyone/ has seen Layla Pt can be reached at: [phone], ok to leave a message [facility] 12-28-2024 Telephone encounter Note Received request for refill of the following medications: Requested Prescriptions Pending Prescriptions Disp Refills apixaban (ELIQUIS) 5 mg tab(s) [Pharmacy Med Name: Eliquis 5mg Tablet] 180 tablet 3 Sig: Take 1 tablet by mouth twice daily. ezetimibe (ZETIA) 10 mg tablet [Pharmacy Med Name: Ezetimibe 10mg Tablet] 90 tablet 3 Sig: Take 1 tablet by mouth daily. Patient requested a 90 day refill. Pharmacy verified and updated accordingly. Patient was last seen in cardiology office: 10/15/2024 w/ Dr. Longo. Upcoming appointment scheduled: 04/05/2025 w/ Dr. Garcia. Labs: Hemoglobin (g/dL) Date Value 11/25/2023 14.7 08/14/2021 14.1 Hematocrit (%) Date Value 11/25/2023 44.2 08/14/2021 41.9 WBC (k/uL) Date Value 11/25/2023 8.76 08/14/2021 9.89 Platelet Count (k/uL) Date Value 11/25/2023 223 08/14/2021 258 Creatinine Date Value Ref Range Status 11/25/2023 0.82 0.73 - 1.22 mg/dL Final 10/11/2023 0.71 (L) 0.73 - 1.22 mg/dL Final [facility] 12-28-2024 Miscellaneous Notes Received request for refill of the following medications: Requested Prescriptions Pending Prescriptions Disp Refills apixaban (ELIQUIS) 5 mg tab(s) [Pharmacy Med Name: Eliquis 5mg Tablet] 180 tablet 3 Sig: Take 1 tablet by mouth twice daily. ezetimibe (ZETIA) 10 mg tablet [Pharmacy Med Name: Ezetimibe 10mg Tablet] 90 tablet 3 Sig: Take 1 tablet by mouth daily. Patient requested a 90 day refill. Pharmacy verified and updated accordingly. Patient was last seen in cardiology office: 10/15/2024 w/ Dr. Longo. Upcoming appointment scheduled: 04/05/2025 w/ Dr. Garcia. Labs: Hemoglobin (g/dL) Date Value 11/25/2023 14.7 08/14/2021 14.1 Hematocrit (%) Date Value 11/25/2023 44.2 08/14/2021 41.9 WBC (k/uL) Date Value 11/25/2023 8.76 08/14/2021 9.89 Platelet Count (k/uL) Date Value 11/25/2023 223 08/14/2021 258 Creatinine Date Value Ref Range Status 11/25/2023 0.82 0.73 - 1.22 mg/dL Final 10/11/2023 0.71 (L) 0.73 - 1.22 mg/dL Final documented in this encounter [facility] 12-28-2024 Telephone encounter Note Received request for refill of the following medications: Requested Prescriptions Pending Prescriptions Disp Refills rosuvastatin (CRESTOR) 40 mg tablet [Pharmacy Med Name: Rosuvastatin Calcium 40mg Tablet] 90 tablet 3 Sig: Take 1 tablet by mouth daily at bedtime. Patient requested a 90 day refill. Pharmacy verified and updated accordingly. Patient was last seen in cardiology office: 10/15/2024 w/ Dr. Longo. Upcoming appointment scheduled: 04/05/2025 w/ Dr. Garcia. Labs: Hemoglobin (g/dL) Date Value 11/25/2023 14.7 08/14/2021 14.1 Hematocrit (%) Date Value 11/25/2023 44.2 08/14/2021 41.9 WBC (k/uL) Date Value 11/25/2023 8.76 08/14/2021 9.89 Platelet Count (k/uL) Date Value 11/25/2023 223 08/14/2021 258 Creatinine Date Value Ref Range Status 11/25/2023 0.82 0.73 - 1.22 mg/dL Final 10/11/2023 0.71 (L) 0.73 - 1.22 mg/dL Final [facility] 12-28-2024 Miscellaneous Notes Received request for refill of the following medications: Requested Prescriptions Pending Prescriptions Disp Refills rosuvastatin (CRESTOR) 40 mg tablet [Pharmacy Med Name: Rosuvastatin Calcium 40mg Tablet] 90 tablet 3 Sig: Take 1 tablet by mouth daily at bedtime. Patient requested a 90 day refill. Pharmacy verified and updated accordingly. Patient was last seen in cardiology office: 10/15/2024 w/ Dr. Longo. Upcoming appointment scheduled: 04/05/2025 w/ Dr. Garcia. Labs: Hemoglobin (g/dL) Date Value 11/25/2023 14.7 08/14/2021 14.1 Hematocrit (%) Date Value 11/25/2023 44.2 08/14/2021 41.9 WBC (k/uL) Date Value 11/25/2023 8.76 08/14/2021 9.89 Platelet Count (k/uL) Date Value 11/25/2023 223 08/14/2021 258 Creatinine Date Value Ref Range Status 11/25/2023 0.82 0.73 - 1.22 mg/dL Final 10/11/2023 0.71 (L) 0.73 - 1.22 mg/dL Final documented in this encounter [facility] 11-27-2024 Telephone encounter Note The following approved medication requests have been transmitted electronically. Requested Prescriptions Signed Prescriptions Disp Refills metoprolol succinate ER (TOPROL XL) 25 mg 24 hr tablet 45 tablet 1 Sig: Take 1/2 tablet by mouth daily at bedtime. Authorizing Provider: JESSE LONGO Ordering User: SHANE PRICE APRN.CNP [facility] Work Phone: 11-27-2024 Miscellaneous Notes The following approved medication requests have been transmitted electronically. Requested Prescriptions Signed Prescriptions Disp Refills metoprolol succinate ER (TOPROL XL) 25 mg 24 hr tablet 45 tablet 1 Sig: Take 1/2 tablet by mouth daily at bedtime. Authorizing Provider: JESSE LONGO Ordering User: SHANE PRICE APRN.CNP Received request for refill of the following [...] 1.22 mg/dL Final documented in this encounter [facility] 11-27-2024 Telephone encounter Note Received request for refill [...] 0.71 (L) 0.73 - 1.22 mg/dL Final [facility] 10-15-2024 Note HNO ID: [id number] Author: JESSE LONGO MD Service: ? Author Type: Physician Type: Progress Notes Filed: 10/15/2024 08:38 Note Text: [facility] OUTPATIENT VISIT DATE October 15, 2024 OUTPATIENT VISIT TYPE ESTABLISHED PRIMARY CARE PHYSICIAN: Tae Martinez ([facility]) [address] [place] [address] CHIEF COMPLAINT: Persistent afib. HISTORY OF PRESENT ILLNESS: Mr. Kohli is a 64 year old male with pers-AF s/p PVI. No new palpitation or chest pain. Presents IMPRESSION: Persistent AF: S/p AF ablation. Feels better in sinus rhythm. On flecainide and low dose metoprolol. Will d/c flecainide today for LAFB and ME of 200ms. F/u in 1 year PLAN AND RECOMMENDATIONS: Persistent AF: S/p AF ablation. Feels better in sinus rhythm. On flecainide and low dose metoprolol. Will d/c flecainide today for LAFB and ME of 200ms. F/u in 1 year PHYSICAL EXAMINATION: Pulse (!) 54 Wt 104.6 kg (230 lb 9.6 oz) BMI 29.61 kg/m? HEENT: normocephalic, EOMI Heart: regular rhythm Lungs: clear to auscultation Abdomen: bowel sounds present Extremities: no edema Musculoskeletal: chest wall nontender Neurological: alert and oriented Psychiatric: appropriate and cooperative Skin: no rash, cellulitis or lesions appreciated CARDIOVASCULAR MEDICINE TESTING: I have personally reviewed ECG Last EKG Result Conclusion ECG COMPLETE Collected: 10/15/2024 8:25 AM (Preliminary result) Impression: SINUS BRADYCARDIA LEFT ANTERIOR FASCICULAR BLOCK CANNOT EXCLUDE INFERIOR MYOCARDIAL INFARCTION (MASKED BY FASCICULAR BLOCK?) , AGE UNDETERMINED CANNOT EXCLUDE ANTERIOR MYOCARDIAL INFARCTION , AGE UNDETERMINED ABNORMAL ECG PAST CARDIAC HISTORY: See below PAST MEDICAL HISTORY Diagnosis Date Atrial fibrillation (HCC) BPH (benign prostatic hyperplasia) Elevated TSH Essential hypertension Meningitis spinal (HCC) 1964 Osteoarthritis of both knees Other hyperlipidemia Rheumatoid arthritis (HCC) Sleep apnea 10/15/2023 Under observation for suspected coronary artery disease PAST SURGICAL HISTORY Procedure Laterality Date ARTHROSCOPY KNEE DIAGNOSTIC W/WO SYNOVIAL BX SPX Right 2013 [facility] CARDIAC RADIOFREQUENCY ABLATION 07/18/2022 PVI/PWI (Afib) TONSILLECTOMY HX Social History Tobacco Use Smoking status: Never Smokeless tobacco: Never Vaping Use Vaping status: Never Used Substance Use Topics Alcohol use: Not Currently Comment: rare Drug use: Never FAMILY HISTORY Problem Relation Age of Onset Coronary Artery Disease Father 57 smoker; 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 ELIQUIS 5 mg tab(s) Take 1 tablet by mouth twice daily. rosuvastatin (CRESTOR) 40 mg tablet Take 1 tablet by mouth daily at bedtime. flecainide (TAMBOCOR) 100 mg tablet take 1 tablet by mouth two times a day. metoprolol succinate ER (TOPROL XL) 25 mg 24 hr tablet Take 0.5 tablets by mouth daily at bedtime. nitroglycerin sublingual (NITROQUICK) 0.4 mg SL tablet Dissolve 1 tablet under the tongue every 5 minutes as needed for chest pain. If no pain relief call 911. Cholecalciferol, Vitamin D3, 50 mcg (2,000 unit) [...] Take 400 mg by mouth once daily. [facility] 10-15-2024 History of Present illness Narrative Images from the original note were not included. [facility] OUTPATIENT VISIT DATE October 15, 2024 OUTPATIENT VISIT TYPE ESTABLISHED PRIMARY CARE PHYSICIAN: Tae Martinez ([facility]) [address] [place] [place] [address] [place] [address] CHIEF COMPLAINT: Persistent afib. HISTORY OF PRESENT ILLNESS: Mr. Kohli is a 64 year old male with pers-AF s/p PVI. No new palpitation or chest pain. Presents IMPRESSION: Persistent AF: S/p AF ablation. Feels better in sinus rhythm. On flecainide and low dose metoprolol. Will d/c flecainide today for LAFB and ME of 200ms. F/u in 1 year PLAN AND RECOMMENDATIONS: Persistent AF: S/p AF ablation. Feels better in sinus rhythm. On flecainide and low dose metoprolol. Will d/c flecainide today for LAFB and ME of 200ms. F/u in 1 year PHYSICAL EXAMINATION: Pulse (!) 54 Wt 104.6 kg (230 lb 9.6 oz) BMI 29.61 kg/m HEENT: normocephalic, EOMI Heart: regular rhythm Lungs: clear to auscultation Abdomen: bowel sounds present Extremities: no edema Musculoskeletal: chest wall nontender Neurological: alert and oriented Psychiatric: appropriate and cooperative Skin: no rash, cellulitis or lesions appreciated CARDIOVASCULAR MEDICINE TESTING: I have personally reviewed ECG Last EKG Result Conclusion ECG COMPLETE Collected: 10/15/2024 8:25 AM (Preliminary result) Impression: SINUS BRADYCARDIA LEFT ANTERIOR FASCICULAR BLOCK CANNOT EXCLUDE INFERIOR MYOCARDIAL INFARCTION (MASKED BY FASCICULAR BLOCK?) , AGE UNDETERMINED CANNOT EXCLUDE ANTERIOR MYOCARDIAL INFARCTION , AGE UNDETERMINED ABNORMAL ECG PAST CARDIAC HISTORY: See below PAST MEDICAL HISTORY Diagnosis Date Atrial fibrillation (HCC) BPH (benign prostatic hyperplasia) Elevated TSH Essential hypertension Meningitis spinal (HCC) 1964 Osteoarthritis of both knees Other hyperlipidemia Rheumatoid arthritis (HCC) Sleep apnea 10/15/2023 Under observation for suspected coronary artery disease PAST SURGICAL HISTORY Procedure Laterality Date ARTHROSCOPY KNEE DIAGNOSTIC W/WO SYNOVIAL BX SPX Right 2013 [facility]X CARDIAC RADIOFREQUENCY ABLATION 07/18/2022 PVI/PWI (Afib) TONSILLECTOMY HX Social History Tobacco Use Smoking status: Never Smokeless tobacco: Never Vaping Use Vaping status: Never Used Substance Use Topics Alcohol use: Not Currently Comment: rare Drug use: Never FAMILY HISTORY Problem Relation Age of Onset Coronary Artery Disease Father 57 smoker; 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 ELIQUIS 5 mg tab(s) Take 1 tablet by mouth twice daily. rosuvastatin (CRESTOR) 40 mg tablet Take 1 tablet by mouth daily at bedtime. flecainide (TAMBOCOR) 100 mg tablet take 1 tablet by mouth two times a day. metoprolol succinate ER (TOPROL XL) 25 mg 24 hr tablet Take 0.5 tablets by mouth daily at bedtime. nitroglycerin sublingual (NITROQUICK) 0.4 mg SL tablet Dissolve 1 tablet under the tongue every 5 minutes as needed for chest pain. If no pain relief call 911. Cholecalciferol, Vitamin D3, 50 mcg (2,000 unit) [...] mouth once daily. documented in this encounter [facility] 09-28-2024 Telephone encounter Note Received request for refill of the following medications: Requested Prescriptions Pending Prescriptions Disp Refills ezetimibe (ZETIA) 10 mg tablet [Pharmacy Med Name: Ezetimibe 10mg Tablet] 90 tablet 0 Sig: Take 1 tablet by mouth daily. ELIQUIS 5 mg tab(s) [Pharmacy Med Name: Eliquis 5mg Tablet] 180 tablet 0 Sig: Take 1 tablet by mouth twice daily. Patient requested a 90 day refill. Pharmacy verified and updated accordingly. Patient was last seen in cardiology office: 01/09/2024 w/ Dr. Longo. Upcoming appointment scheduled: 10/15/2024 w/ . Labs: Hemoglobin (g/dL) Date Value 11/25/2023 14.7 08/14/2021 14.1 Hematocrit (%) Date Value 11/25/2023 44.2 08/14/2021 41.9 WBC (k/uL) Date Value 11/25/2023 8.76 08/14/2021 9.89 Platelet Count (k/uL) Date Value 11/25/2023 223 08/14/2021 258 Creatinine Date Value Ref Range Status 11/25/2023 0.82 0.73 - 1.22 mg/dL Final 10/11/2023 0.71 (L) 0.73 - 1.22 mg/dL Final [facility] 09-28-2024 Miscellaneous Notes Received request for refill of the following medications: Requested Prescriptions Pending Prescriptions Disp Refills ezetimibe (ZETIA) 10 mg tablet [Pharmacy Med Name: Ezetimibe 10mg Tablet] 90 tablet 0 Sig: Take 1 tablet by mouth daily. ELIQUIS 5 mg tab(s) [Pharmacy Med Name: Eliquis 5mg Tablet] 180 tablet 0 Sig: Take 1 tablet by mouth twice daily. Patient requested a 90 day refill. Pharmacy verified and updated accordingly. Patient was last seen in cardiology office: 01/09/2024 w/ Dr. Longo. Upcoming appointment scheduled: 10/15/2024 w/ . Labs: Hemoglobin (g/dL) Date Value 11/25/2023 14.7 08/14/2021 14.1 Hematocrit (%) Date Value 11/25/2023 44.2 08/14/2021 41.9 WBC (k/uL) Date Value 11/25/2023 8.76 08/14/2021 9.89 Platelet Count (k/uL) Date Value 11/25/2023 223 08/14/2021 258 Creatinine Date Value Ref Range Status 11/25/2023 0.82 0.73 - 1.22 mg/dL Final 10/11/2023 0.71 (L) 0.73 - 1.22 mg/dL Final documented in this encounter [facility] 04-22-2024 Telephone encounter Note Received request for refill of the following medications: Requested Prescriptions Pending Prescriptions Disp Refills rosuvastatin (CRESTOR) 40 mg tablet 90 tablet 3 Sig: Take 1 tablet by mouth daily at bedtime. Patient requested a 90 day refill. Pharmacy verified and updated accordingly. Patient was last seen in cardiology office: 01/09/24. Upcoming appointment scheduled: 07/23/24. Labs: Hemoglobin (g/dL) Date Value 11/25/2023 14.7 08/14/2021 14.1 Hematocrit (%) Date Value 11/25/2023 44.2 08/14/2021 41.9 WBC (k/uL) Date Value 11/25/2023 8.76 08/14/2021 9.89 Platelet Count (k/uL) Date Value 11/25/2023 223 08/14/2021 258 Creatinine Date Value Ref Range Status 11/25/2023 0.82 0.73 - 1.22 mg/dL Final 10/11/2023 0.71 (L) 0.73 - 1.22 mg/dL Final [facility] 04-22-2024 Miscellaneous Notes Received request for refill of the following medications: Requested Prescriptions Pending Prescriptions Disp Refills rosuvastatin (CRESTOR) 40 mg tablet 90 tablet 3 Sig: Take 1 tablet by mouth daily at bedtime. Patient requested a 90 day refill. Pharmacy verified and updated accordingly. Patient was last seen in cardiology office: 01/09/24. Upcoming appointment scheduled: 07/23/24. Labs: Hemoglobin (g/dL) Date Value 11/25/2023 14.7 08/14/2021 14.1 Hematocrit (%) Date Value 11/25/2023 44.2 08/14/2021 41.9 WBC (k/uL) Date Value 11/25/2023 8.76 08/14/2021 9.89 Platelet Count (k/uL) Date Value 11/25/2023 223 08/14/2021 258 Creatinine Date Value Ref Range Status 11/25/2023 0.82 0.73 - 1.22 mg/dL Final 10/11/2023 0.71 (L) 0.73 - 1.22 mg/dL Final documented in this encounter [facility] 04-07-2024 Telephone encounter Note Received request for refill of the following medications: Requested Prescriptions Pending Prescriptions Disp Refills ezetimibe (ZETIA) 10 mg tablet [Pharmacy Med Name: Ezetimibe 10mg Tablet] 90 tablet 1 Sig: take 1 tablet by mouth daily. ELIQUIS 5 mg tab(s) [Pharmacy Med Name: Eliquis 5mg Tablet] 180 tablet 1 Sig: take 1 tablet by mouth twice daily. Patient requested a 90 day refill. Pharmacy verified and updated accordingly. Patient was last seen in cardiology office: 01/09/2024. Upcoming appointment scheduled: 07/23/2024. Labs: Hemoglobin (g/dL) Date Value 11/25/2023 14.7 08/14/2021 14.1 Hematocrit (%) Date Value 11/25/2023 44.2 08/14/2021 41.9 WBC (k/uL) Date Value 11/25/2023 8.76 08/14/2021 9.89 Platelet Count (k/uL) Date Value 11/25/2023 223 08/14/2021 258 Creatinine Date Value Ref Range Status 11/25/2023 0.82 0.73 - 1.22 mg/dL Final 10/11/2023 0.71 (L) 0.73 - 1.22 mg/dL Final [facility] 04-07-2024 Miscellaneous Notes Received request for refill of the following medications: Requested Prescriptions Pending Prescriptions Disp Refills ezetimibe (ZETIA) 10 mg tablet [Pharmacy Med Name: Ezetimibe 10mg Tablet] 90 tablet 1 Sig: take 1 tablet by mouth daily. ELIQUIS 5 mg tab(s) [Pharmacy Med Name: Eliquis 5mg Tablet] 180 tablet 1 Sig: take 1 tablet by mouth twice daily. Patient requested a 90 day refill. Pharmacy verified and updated accordingly. Patient was last seen in cardiology office: 01/09/2024. Upcoming appointment scheduled: 07/23/2024. Labs: Hemoglobin (g/dL) Date Value 11/25/2023 14.7 08/14/2021 14.1 Hematocrit (%) Date Value 11/25/2023 44.2 08/14/2021 41.9 WBC (k/uL) Date Value 11/25/2023 8.76 08/14/2021 9.89 Platelet Count (k/uL) Date Value 11/25/2023 223 08/14/2021 258 Creatinine Date Value Ref Range Status 11/25/2023 0.82 0.73 - 1.22 mg/dL Final 10/11/2023 0.71 (L) 0.73 - 1.22 mg/dL Final documented in this encounter [facility] 02-03-2024 Telephone encounter Note The following approved medication requests have been transmitted electronically. Requested Prescriptions Signed Prescriptions Disp Refills flecainide (TAMBOCOR) 100 mg tablet 180 tablet 3 Sig: take 1 tablet by mouth two times a day. Authorizing Provider: JESSE LONGO Ordering User: RADHA CHRISTENSEN APRN.CNP [facility] Work Phone: 02-03-2024 Miscellaneous Notes The following approved medication requests have been transmitted electronically. Requested Prescriptions Signed Prescriptions Disp Refills flecainide (TAMBOCOR) 100 mg tablet 180 tablet 3 Sig: take 1 tablet by mouth two times a day. Authorizing Provider: JESSE LONGO Ordering User: RADHA CHRISTENSEN APRN.[employer] Received request for refill of the following [...] 1.22 mg/dL Final documented in this encounter [facility] 02-03-2024 Telephone encounter Note Received request for [...] 0.71 (L) 0.73 - 1.22 mg/dL Final [facility] 01-09-2024 History of Present illness Narrative Images from the original note were not included. [facility] SECTION OF REGIONAL CARDIOLOGY OUTPATIENT VISIT DATE January 09, 2024 OUTPATIENT VISIT TYPE ESTABLISHED PRIMARY CARE PHYSICIAN: Tae Martinez ([facility]) [address] [place] [address] CHIEF COMPLAINT: Persistent Afib. HISTORY OF PRESENT [...] Onset Coronary Artery Disease Father 57 smoker; mosaic worker Emphysema Paternal Grandfather ALLERGIES Allergen Reactions [...] mouth once daily. documented in this encounter [facility] 12-20-2023 Telephone encounter Note Pt wants metoprolol [...] 0.71 (L) 0.73 - 1.22 mg/dL Final [facility] 12-20-2023 Miscellaneous Notes Pt wants metoprolol [...] 1.22 mg/dL Final documented in this encounter [facility] 11-21-2023 Telephone encounter Note Called and left message for patient to call me back to schedule his cardioversion and to get labs done. [facility] 11-21-2023 Miscellaneous Notes Called and left [...] Layla Roger PA-C documented in this encounter [facility] 11-21-2023 Telephone encounter Note EKG from 11/14 shows persistent AF Please offer him a cardioversion (we discussed this at last office visit) He will need updated labs (ordered) Dr Longo appt in December needs to stay and he may be set up for redo ablation Layla Roger PA-C [facility] 11-15-2023 History of Present illness Narrative Pt here for EKG . Pt was started on new medication last week and here for follow up EKG. Pt with no symptoms . Provider notified of completion documented in this encounter [facility] 11-08-2023 Instructions Layla Roger PA-C - [...] in regular rhythm then will see Dr Juana Garcia Move up appt with Dr Longo over the summer at either location Layla Roger PA-C documented in this encounter [facility] 11-08-2023 History of Present illness Narrative Images from the original note were not included. [facility] Department of Cardiovascular Medicine SECTION OF CARDIAC PACING and ELECTROPHYSIOLOGY OUTPATIENT VISIT DATE November 08, 2023 OUTPATIENT VISIT TYPE ESTABLISHED PRIMARY CARE PHYSICIAN: Tae Martinez ([facility]) [address] [place] [address] CHIEF COMPLAINT: Cardiology follow up HISTORY OF [...] Onset Coronary Artery Disease Father 57 smoker; mosaic worker Emphysema Paternal Grandfather ALLERGIES: ALLERGIES Allergen [...] the prior echocardiographic exam performed on 03/17/21 ([facility]). Visualized aorta is borderline dilated. Latest Ref [...] with more than 50% of the total [id number] time of the visit in counseling / coordination of care. documented in this encounter [facility] 11-05-2023 Telephone encounter Note Spoke with patient. Explained Dr. Longo said no additional recommendations at this time and we would see him on Saturday. Patient agreeable. Sravani Jimenez RN [facility] 11-05-2023 Miscellaneous Notes Spoke with patient. [...] questions, call back. documented in this encounter [facility] 11-01-2023 Telephone encounter Note Patient calling. [...] If you have any questions, call back. [facility] 10-14-2023 Miscellaneous Notes Called and spoke to patient and scheduled his cardioversion with Dr Longo for tomorrow. Patient notified to have a delivery route driver and to be npo after midnight the night prior, He will take his morning medications with a sip of water. Follow up scheduled. ----- Message ----- From: Layla Roger PA-C Sent: 10/11/2023 3:12 PM EDT CVN next week --> either location but if at then request Dr Longo. See me post CVN 2'valente weeks afterwards Layla Roger PA-C documented in this encounter [facility] 10-07-2023 Miscellaneous Notes I reviewed the [...] needs a TANVI. thank you Johnna Victoria APRN.[employer] Spoke with patient. States he has been [...] best patient care. documented in this encounter [facility] 07-24-2023 Evaluation note Encounter Date Diagnosis Assessment Notes Jul, Primary hypertension (ICD-10 - I10) [facility] Other 11-22-2023 Evaluation note* Encounter Date Diagnosis [...] are maintaining regular scheduled appts with their newspaper writer. No bleeding complications May, DICK (obstructive sleep apnea) (ICD-10 - G47.33) This patient is aware of the benefits associated with DICK: With continued use, the patient reduces the risk for NE, CVA, HTN, cardiac dysrhythmias and sudden cardiac [...] risk for cerebrovascular and cardiovascular disease. May, FRANLKIN (generalized anxiety disorder) (ICD-10 - F41.1) Stable COntinue healthy diet and exercise May, Subclinical hypothyroidism (ICD-10 - E03.8) Monitor yearly NO treatment unless TSH > 8 or symptomatic [facility] Other 11-03-2023 History of Present illness Narrative* Carlos Garcia MD - 05/17/2023 9:00 AM EDT Images from the original note were not included. [facility] Department of Cardiovascular Medicine SECTION [...] RVSF/size, normal LA/RA size, 1+ TR, 1+ ME, mid ascending 3.9cm 01/19/2021 TTE: LVEF 55-60%, [...] Garcia M.D. Cardiovascular Medicine Staff [facility] Mail Code [id number] [facility] [place] [address] documented in this encounterOhio [facility] Hospital10-12-2023 Miscellaneous Notes* Telephone Encounter - Gisell [...] - 1.22 mg/dL Final documented in this encounterOhio [facility]07-06-2023 History of Present illness Narrative* Jesse Longo MD - 01/17/2023 8:45 AM EDT Images from the original note were not included. [facility] SECTION OF REGIONAL CARDIOLOGY OUTPATIENT VISIT DATE January 17, 2023 OUTPATIENT VISIT TYPE ESTABLISHED PRIMARY CARE PHYSICIAN: Tae Martinez ([facility]) [address] [place] [address] CHIEF COMPLAINT: Post PVI HISTORY OF PRESENT [...] Onset Coronary Artery Disease Father 57 smoker; mosaic worker Emphysema Paternal Grandfather ALLERGIES Allergen Reactions [...] mouth once daily.^Disp: ^Rfl: documented in this encounterOhio State [facility]ing Hospital05-16-2023 Miscellaneous Notes* Telephone Encounter - Radha Christensen APRN.CNP - 11/27/2022 7:49 AM EDT This was filled 3 months ago for 3 months. Patient just needs to call pharmacy for refill. Radha Christensen APRN.TIFFANIE * Telephone Encounter - Radha Arceo MA - 11/26/2022 8:26 AM EDT Usha 11/01/22 Nov 01/17/23 documented in this encounterOhio [facility]05-03-2023 History of Present illness Narrative* Kareen Bruner APRN.CNP - 11/14/2022 11:35 AM EDT Images from the original note were not included. [facility] Department of Cardiovascular Medicine SECTION OF CARDIAC PACING and ELECTROPHYSIOLOGY OUTPATIENT VISIT DATE November 14, 2022 OUTPATIENT VISIT TYPE ESTABLISHED PRIMARY CARE PHYSICIAN: Tae Martinez ([facility]) [address] [id number] REFERRING PHYSICIAN: No referring provider defined for [...] sotalol DC'ed & amiodarone initiated, s/p DCCV, [id number] 1: hypertension), preserved LV systolic function (Echo 12/13/21: 69%). Other past medical history includes hypertension, hyperlipidemia, RA, BPH,DICK (no CPAP). Doing well today, in NSR w/o any recurrence of AF. 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 He denies chest pain, shortness of breath, [...] Onset Coronary Artery Disease Father 57 smoker; mosaic worker Emphysema Paternal Grandfather ALLERGIES: ALLERGIES Allergen [...] the prior echocardiographic exam performed on 03/17/21 ([facility]). Visualized aorta is borderline dilated. Cardiac Cath: [...] sotalol DC'ed & amiodarone initiated, s/p DCCV, [id number] 1: hypertension), preserved LV systolic function (Echo [...] other AAD. CONTACT INFORMATION: Kareen Bruner APRN, [employer], November 14, 2022 [facility] Cardiology Second Floor [id number] [address] [facility] [address] [place] [address] documented in this encounterOhio State Harding Hospital04-25-2023 Miscellaneous Notes* Telephone Encounter - Sidra [...] leave message on voicemail) documented in this encounterOhio State [facility]ing Hospital04-20-2023 History of Present illness Narrative* Claudine Gutierrez - 11/01/2022 12:52 PM EDT Pre OP labs documented in this encounterOhio State Harding Hospital04-20-2023 History of Present illness Narrative* Jesse Longo MD - 11/01/2022 8:57 AM EDT Images from the original note were not included. [facility] SECTION OF REGIONAL CARDIOLOGY OUTPATIENT VISIT DATE November 01, 2022 OUTPATIENT VISIT TYPE ESTABLISHED PRIMARY CARE PHYSICIAN: Tae Martinez ([facility]) [address] [id number] CHIEF COMPLAINT: Persistent afib , post ablation [...] prior CC echocardiographic exam performed on 03/17/21 ([facility]). Visualized aorta is borderline dilated. * * [...] is clinically indicated, cardiac catheterization is recommended. Or Rn: ADRY Transcribe Date/Time: Nov 28 2021 10:09A [...] Onset Coronary Artery Disease Father 57 smoker; mosaic worker Emphysema Paternal Grandfather ALLERGIES Allergen Reactions [...] mouth once daily.^Disp: ^Rfl: documented in this encounterOhio State Harding Hospital03-01-2023 Miscellaneous Notes* Telephone Encounter - Sraavni Rouse RN - 09/12/2022 9:29 AM EST Received fax from Dr. Yury Brown DDS requesting hold on patients Eliquis for 2 days. Anticoagulation Interruption recommendations: Prescribed anticoagulant: Apixaban (Eliquis) Procedure being performed: Removal of along rooted lower molar Date procedure will be performed: Not provided Recent cardioversion or PVI? Yes: PVI ablation on 07/18/2022 DCCV on 08/22/2021 Hypertension (1) Vascular disease (prior NE, PAD, or aortic plaque) (1) Total Score: 2 Please provide recommendations for appropriate anticoagulation interruption. Patient may hold Eliquis for 2 days prior to his procedure per Dr. Kenny Garcia Faxing to Dr. Brown fax # [phone] with confirmation. documented in this encounterOhio State Harding Hospital01-07-2023 Miscellaneous Notes* Telephone Encounter - Carmen Johnson RN - 07/21/2022 7:06 AM EST Reason for call: Bruising at post op site Outcome: Patient was conferenced to Dr. Longo's Answering service to speak to cardiology interventional tech. Reason for Disposition [1] Scant bleeding (e.g., [...] was 139/97 Protocols used: Post-Op Symptoms and [id number], Post-Op Incision Symptoms and [id number] documented in this encounterOhio State Harding Hospital11-22-2022 Miscellaneous Notes* Telephone Encounter - Radha Christensen [...] - 1.4 mg/dL Final documented in this encounterOhio State Harding Hospital10-28-2022 History of Present illness Narrative* Carlos Garcia MD - 05/11/2022 9:00 AM EDT Images from the original note were not included. [facility] Department of Cardiovascular Medicine SECTION OF REGIONAL CARDIOLOGY OUTPATIENT VISIT DATE May 11, 2022 OUTPATIENT VISIT TYPE ESTABLISHED PRIMARY CARE PHYSICIAN: Tae Martinez ([facility]) [address] [place] [address] CHIEF COMPLAINT: Cardiovascular follow-up HISTORY OF PRESENT [...] RVSF/size, normal LA/RA size, 1+ TR, 1+ ME, mid ascending 3.9cm Echocardiogram 01/19/2021: LVEF 55-60%, [...] Garcia M.D. Cardiovascular Medicine Staff [facility] Mail Code [id number] [facility] [place] [address] documented in this encounterOhio State Harding Hospital10-27-2022 History of Present illness Narrative* Jesse Longo MD - 05/10/2022 8:57 AM EDT Images from the original note were not included. [facility] SECTION OF REGIONAL CARDIOLOGY OUTPATIENT VISIT DATE May 10, 2022 OUTPATIENT VISIT TYPE ESTABLISHED PRIMARY CARE PHYSICIAN: Tae Martinez ([facility]) [address] [place] [address] CHIEF COMPLAINT: afib HISTORY OF PRESENT ILLNESS: [...] the prior echocardiographic exam performed on 03/17/21 ([facility]). Visualized aorta is borderline dilated. * * * Final * * * Last EKG Result Conclusion ECG COMPLETE Collected: 12/19/2021 8:56 AM (Final result) Impression: Sinus bradycardia Nonspecific intraventricular conduction delay Borderline T abnormalities, inferior leads Abnormal ECG Confirmed by LIZ LANDEROS, [facility] ([id number]) on 12/23/2021 2:44:[address] [...] is clinically indicated, cardiac catheterization is recommended. Or Rn: ADRY Transcribe Date/Time: Nov 28 2021 10:09A [...] Onset Coronary Artery Disease Father 57 smoker; mosaic worker Emphysema Paternal Grandfather ALLERGIES Allergen Reactions [...] mouth once daily.^Disp: ^Rfl: documented in this encounterOhio State Harding Hospital09-12-2022 Miscellaneous Notes* Telephone Encounter - Johnna Victoria APRN.[employer] - 03/26/2022 5:13 PM EDT I reviewed [...] accordingly. Nabila Mata RN documented in this encounterOhio State Harding Hospital08-23-2022 Instructions* Patient Instructions* Javier Pop DO - 03/06/2022 10:11 AM EDT Continue Voltaren gel up to 3x/day for areas of pain Continue PT for knee arthritis Get prior auth for gel injections Follow up for viscosupplemenation injections for bilateral knees documented in this encounterOhio State Harding Hospital08-23-2022 History of Present illness Narrative* Javier Pop DO - 03/06/2022 9:58 AM EDTAssociated Order(s): Large Joint Arthro/Inj: bilateral knee joints Post-Procedure Diagnose(s): Primary osteoarthritis of both knees Images from the original note were not included. 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 Or Rn: ADRY Transcribe Date/Time: Jul 11 2021 12:05P [...] knee joints Informed Consent Consent Obtained: Verbal [place] Protocol A moment to CARE was completed. [...] which included preparing to see the patient, [id number] patient care, completing clinical documentation, obtaining and/or [...] 2022 Time: 9:58 AM documented in this encounterOhio State Harding Hospital06-07-2022 Miscellaneous Notes* Telephone Encounter - Erendira Osborne MA - 12/19/2021 1:09 PM EDT Last office visit 11/09/21 Future appt scheduled 05/10/22 documented in this encounterOhio State Harding Hospital05-17-2022 Miscellaneous Notes* Telephone Encounter - Carlos [...] to repeat echocardiogram prior documented in this encounterOhio State Harding Hospital05-17-2022 History of Present illness Narrative* RADHA [...] Intact, Site disposition Discontinued SIGNED BY: RADHA Lesetr November 28, 2021 9:38 AM documented in this encounterOhio State Harding Hospital05-17-2022 Nurse Note* Jaron Tomas RN - [...] 2021 TIME: 8:34 AM documented in this encounterOhio State Harding Hospital05-16-2022 Miscellaneous Notes* Telephone Encounter - Sravani [...] been in the 50's. 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 Pharmacy states they never received anything. Orders were sent on 11/09. Please have them resent to the pharmacy. Patient can be reached at [phone] documented in this encounterOhio State Harding Hospital04-28-2022 Miscellaneous Notes* Addendum Note - Carlos Garcia MD - 11/09/2021 11:19 AM EDT Addended by: CARLOS GARCIA on: 11/09/2021 11:19 AM Modules accepted: Orders documented in this encounterOhio State Harding Hospital04-28-2022 History of Present illness Narrative* Jesse Longo MD - 11/09/2021 9:48 AM EDT Images from the original note were not included. 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 documented in this encounterOhio State Harding Hospital04-28-2022 History of Present illness Narrative* Carlos Garcia MD - 11/09/2021 8:00 AM EDT Images from the original note were not included. [facility] Department of Cardiovascular Medicine SECTION OF REGIONAL CARDIOLOGY OUTPATIENT VISIT DATE November 09, 2021 OUTPATIENT VISIT TYPE ESTABLISHED PRIMARY CARE PHYSICIAN: Tae Martinez ([place]) [address] [place] [address] CHIEF COMPLAINT: Cardiovascular follow-up HISTORY OF PRESENT [...] Garcia M.D. Cardiovascular Medicine Staff [facility] Mail Code [id number] [place] [address]. [place] [address] documented in [facility] encounterSouth[facility] [place] [facility]* Diagnosis Under observation for suspected coronary artery disease- Primary Observation for suspected cardiovascular disease Other hyperlipidemia Essential hypertension Unspecified essential hypertension Persistent atrial fibrillation (HCC) Atrial fibrillation Pulmonary hypertension, unspecified (HCC) Abnormal nuclear stress test Other nonspecific abnormal cardiovascular system function study documented [facility] this encounter [facility] [place] [facility]* Diagnosis Persistent atrial fibrillation (HCC)- Primary Atrial fibrillation [facility] [place] [facility]* Diagnosis Coronary artery disease involving [place] coronary artery of [place] heart, unspecified whether angina present- Primary documented in this [facility] [place] [facility]* Diagnosis Under observation for suspected coronary artery disease Observation for suspected cardiovascular disease Abnormal nuclear stress test Other nonspecific abnormal cardiovascular system function study documented [facility] this encounter [facility] [place] [facility]* Diagnosis Under observation for suspected coronary artery disease Observation for suspected cardiovascular disease Essential hypertension Unspecified essential hypertension Persistent atrial fibrillation (HCC) Atrial fibrillation Pulmonary hypertension, unspecified (HCC) Abnormal cardiovascular stress test Other nonspecific abnormal cardiovascular system function study documented [facility] this encounter [facility] [place] [facility]* Diagnosis Primary osteoarthritis of both knees- Primary Primary localized osteoarthrosis, lower leg Positive KISHA (antinuclear antibody) Other and unspecified nonspecific immunological findings documented [facility] this encounter [facility] [place] [facility]* Diagnosis Medication refill [Z76.0 (ICD-10-CM)]- Primary Issue of repeat prescriptions documented [facility] this encounter [facility] [place] [facility]* Diagnosis Persistent atrial fibrillation (HCC)- Primary Atrial fibrillation [facility] [place] [facility]* Diagnosis Coronary artery disease involving [place] coronary artery of [place] heart, unspecified whether angina present- Primary [facility] [place] [facility] Diagnosis Persistent atrial fibrillation (HCC)- Primary Atrial fibrillation [facility] [place] [facility]* Diagnosis Persistent atrial fibrillation (HCC)- Primary Atrial fibrillation Atrial fibrillation, persistent (HCC) Atrial fibrillation [facility] [place] [facility]* Diagnosis Paroxysmal atrial fibrillation (HCC)- Primary Atrial fibrillation Atrial fibrillation, persistent (HCC) Atrial fibrillation [facility] [place] [facility]* Diagnosis Persistent atrial fibrillation (HCC)- Primary Atrial fibrillation Atrial fibrillation status post cardioversion (HCC) Atrial fibrillation documented in this encounter [facility] note* Diagnosis Persistent atrial fibrillation (HCC)- Primary Atrial fibrillation documented in this encounter [facility] note* Diagnosis Coronary artery disease involving [place] heart without angina pectoris, unspecified vessel or lesion type- Primary documented in this encounter [facility] noteNo [employer] Other Evaluation note* Diagnosis Persistent atrial fibrillation (HCC) [I48.19]- Primary Atrial fibrillation documented in this encounter [facility] note* Diagnosis Persistent atrial fibrillation (HCC)- Primary Atrial fibrillation S/P ablation of atrial fibrillation Other postprocedural status On continuous oral anticoagulation Long-term (current) use of anticoagulants documented in this encounter [facility] note* Diagnosis Persistent atrial fibrillation (HCC) Atrial fibrillation documented in this encounter [facility] note* Diagnosis Persistent atrial fibrillation (HCC)- Primary Atrial fibrillation documented in this encounter [facility] note* Diagnosis Persistent atrial fibrillation (HCC)- Primary Atrial fibrillation documented in this encounter [facility] note* Diagnosis Medication refill- Primary Issue of repeat prescriptions documented in this encounter [facility] note* Diagnosis Medication refill Issue of repeat prescriptions documented in this encounter [facility] note* Diagnosis Atrial fibrillation, persistent (HCC)- Primary Atrial fibrillation documented in this encounter [facility] note* Diagnosis Onset Date Resolution Status Admit Date Atrial fibrillation acute November 132024 8:18am Benign prostatic hyperplasia with lower urinary tract symptoms acute December 03, 2024 8:18am Hypercholesterolemia acute December 03, 2024 8:18am Hypertension acute December 03 8:18am DICK (obstructive sleep apnea) acute December 03, 2024 8:18am Screening PSA (prostate spec ific antigen) noneactive December 03, 2024 8:18am Wellness examination noneactive December 03, 2024 8:18am [facility] Work Phone: Evaluation note* Diagnosis Onset Date Resolution Status Admit Date Atrial fibrillation acute November 132024 8:27am Hypercholesterolemia acute December 03, 2024 8:27am Hypertension acute December 03 8:27am DICK (obstructive sleep apnea) acute December 03, 2024 8:27am Screening PSA (prostate spec ific antigen) noneactive December 03, 2024 8:27am Wellness examination noneactive December 03, 2024 8:27am [facility] Work Phone: Evaluation note* Diagnosis Medication refill Issue of repeat prescriptions documented in this encounter [facility] note* Diagnosis Atrial fibrillation, persistent (HCC) [I48.19]- Primary Atrial fibrillation documented in this encounter [facility] note* Diagnosis Atrial fibrillation, persistent (HCC)- Primary Atrial fibrillation Atrial fibrillation status post cardioversion (HCC) Atrial fibrillation History of cardiac radiofrequency ablation documented in this encounter [facility] note* Diagnosis Coronary artery disease involving [place] heart, unspecified vessel or lesion type, unspecified whether angina present- Primary Chronic atrial fibrillation (HCC) Atrial fibrillation High serum thyroid stimulating hormone (TSH) Osteoarthritis, unspecified osteoarthritis type, unspecified site documented in this encounter [facility] note* Diagnosis Abnormal TSH- Primary Other abnormal clinical finding documented in this encounter [facility] Narrative - Reported* Type Description Date Medical History Primary hypertension Medical History Persistent atrial fibrillation Medical History Benign prostatic hyp erplasia with lower urinary tract symptoms Medical History Obstructive sleep apnea Medical History Subclinical hypothyroidism Medical History Elevated cholesterol Surgical History COLONOSCOPY 2017 Hospitalization History SEE SURGICAL [facility]X [facility] Other Reason for referral (narrative)* Outpatient Procedure (Routine) - Authorized Specialty Diagnoses / Procedures Referred By Contac t [facility] Diagnoses Under observation for suspected coronary artery disease Essential hypertension Persistent atrial fibrillation (HCC) Pulmonary hypertension, unspecified (HCC) Procedures ECHO ECHO TTHRC R-T 2D W/WOM-MODE COMPL SPEC&[place] [address] [place] [address] [facility] [place] [place] [address] Referral ID Status Reason Start Date Expiration Date Visits Requested Visits Authorized [id number] Authorized Auto-Generat ed Referral 11/09/2021 11/09/2022 1 1 * MRI/CT (Routine) - Open Specialty Diagnoses / Procedures [facility] To [facility] CT [facility] Diagnoses Under observation for suspected coronary artery disease Abnormal nuclear stress test Procedures CTA CORONARY W IVCON CTA HRT CORNRY ART/BYPASS GRFT[place] [address] [place] [address] Ct Imaging Referral ID Status Reason Start Date Expiration Date V isits Requested Visits Authorized [id number] Open Auto-Generate d Referral 11/09/2021 12/09/2022 1 1 [facility] for referral (narrative)* Outpatient Procedure (Routine) - Authorized Specialty Diagnoses / Procedures [facility] To [facility] Diagnoses Persistent atrial fibrillation (HCC) Procedures ECG COMPLETE ECG ROUTINE ECG W/LEAST 12 LDS W/I&R Jesse Longo MD [address] [place] [address] [facility] [address] [address] Referral ID Status Reason Start Date Expiration Date Visits Requested Visits Authorized [id number] Authorized Auto-Generat ed Referral 11/09/2021 11/09/2022 1 1 [facility] for referral (narrative)* Outpatient Procedure (Routine) - Pending Review Specialty Diagnoses / Procedures Referred By [facility] Referred To Contact [facility] Diagnoses Persistent atrial fibrillation (HCC) Procedures ECG COMPLETE ECG ROUTINE ECG W/LEAST 12 LDS W/I&R Jesse Longo MD [address] [place] [address] [facility] [address] [address] Referral ID Status Reason Start Date Expiration Date Visits Requested Visits Authorized [id number] Pending Review Auto-Generat ed Referral 2 05/10/2023 1 1 [facility] for referral (narrative)* Outpatient Procedure (Routine) - Authorized Specialty Diagnoses / Procedures Referred By Contac t Referred To Contact [facility] Diagnoses Persistent atrial fibrillation (HCC) Procedures ECG COMPLETE ECG ROUTINE ECG W/LEAST 12 LDS W/I&R Jesse Longo MD [address] [place] [address] [address] Referral ID Status Reason Start Date Expiration Date Visits Requested Visits Authorized [id number] Authorized Auto-Generat ed Referral 11/01/2022 11/01/2023 1 1 [facility] for referral (narrative)* Outpatient Procedure (Routine) - Authorized Specialty Diagnoses / Procedures Referred By Contac t Referred To Contact [facility] Diagnoses Persistent atrial fibrillation (HCC) Procedures ECG COMPLETE ECG ROUTINE ECG W/LEAST 12 LDS W/I&R Jesse Longo MD [address] [place] [address] [address] Referral ID Status Reason Start Date Expiration Date Visits Requested Visits Authorized [id number] Authorized Auto-Generat ed Referral 01/17/2023 01/17/2024 1 1 [facility] for referral (narrative)* Outpatient Procedure (Routine) - Authorized Specialty Diagnoses / Procedures Referred By Contac t Referred To Contact [facility] Diagnoses Persistent atrial fibrillation (HCC) Procedures ECG COMPLETE ECG ROUTINE ECG W/LEAST 12 LDS W/I&R Layla Roger PA-C [address] [place] [address] [facility] [address] [address] Referral ID Status Reason Start Date Expiration Date Visits Requested Visits Authorized [id number] Authorized Auto-Generat ed Referral 11/08/2023 11/07/2024 1 1 * Outpatient Procedure (Routine) - Pending Review Specialty Diagnoses / Procedures Referred By Contac t Referred To Contact [facility] Diagnoses Persistent atrial fibrillation (HCC) Procedures ECG COMPLETE ECG ROUTINE ECG W/LEAST 12 LDS W/I&R Layla Roger PA-C [address] [place] [address] [address] Referral ID Status Reason Start Date Expiration Date Visits Requested Visits Authorized [id number] Pending Review Auto-Generat ed Referral 11/08/2023 11/07/2024 1 1 [facility] for referral (narrative)* Outpatient Procedure (Routine) - Pending Review Specialty Diagnoses / Procedures Referred By Contac t Referred To Contact [facility] Diagnoses Persistent atrial fibrillation (HCC) Procedures ECG COMPLETE ECG ROUTINE ECG W/LEAST 12 LDS W/I&[place] [address] [place] [address] [address] Referral ID Status Reason Start Date Expiration Date Visits Requested Visits Authorized [id number] Pending Review Auto-Generat ed Referral 01/09/2024 01/08/2025 1 1 [facility] for visit Narrative* Outpatient Procedure (Routine) - Closed Specialty Diagnoses / Procedures Referred By Contac t Referred To Contact [facility] Diagnoses Under observation for suspected coronary artery disease Essential hypertension Persistent atrial fibrillation (HCC) Pulmonary hypertension, unspecified (HCC) Procedures ECHO ECHO TTHRC R-T 2D W/WOM-MODE COMPL SPEC&[place] [address] [place] [address] [facility] [address] [place] [address] Referral ID Status Reason Start Date Expiration Date V isits Requested Visits Authorized [id number] Closed Auto-Generate d Referral 11/09/2021 11/09/2022 1 1 [facility] Summary Purpose Family History No Family History Records Found Relationship Condition Age at Onset Recorded Date/T sean father Hypertension Unknown mother Malignant neoplasm of breast Unknown Unknown Malignant neoplasm Unknown Advance Directives No Advanced Directives Records FoundDocuments on File Type Date Recorded 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 Advance Directive(s) 08/15/2021 12:02 PM Advance Directive(s) 03/17/2021 12:00 PM Advance Directive(s) 03/08/2021 2:26 PM Documents on File Type Date Recorded 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 Advance Directive(s) 08/15/2021 12:02 PM Advance Directive(s) 03/17/2021 12:00 PM Advance Directive(s) 03/08/2021 2:26 PM Documents on File Type Date Recorded 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 Advance Directive(s) 12/05/2021 10:50 AM Advance Directive(s) 08/15/2021 12:02 PM Advance Directive(s) 03/17/2021 12:00 PM Advance Directive(s) 03/08/2021 2:26 PM Documents on File Type Date Recorded 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 Advance Directive(s) 12/05/2021 10:50 AM Advance Directive(s) 08/15/2021 12:02 PM Advance Directive(s) 03/17/2021 12:00 PM Advance Directive(s) 03/08/2021 2:26 PM Advance Directive Response Recorded Date/ Time Advance Directives No August 07, 2023 11:36am Reason for Referral Specialty Diagnoses / Procedures Referred By Kit t Referred To Contact CT IMAGING Diagnoses Under observation for suspected coronary artery disease Abnormal nuclear stress test Procedures CTA CORONARY W IVCON CTA HRT CORNRY ART/BYPASS GRFTS CONTRST 3[place] [address] [place] [address] Ct Imaging Referral ID Status Reason Start Date Expiration Date V isits Requested Visits Authorized [id number] Closed Auto-Generate d Referral 11/28/2021 12/29/2021 1 [...] 10:37 AM EDT 40 mg Knee, Right Chief Complaint and Reason for Visit Chief Complaint Admit Date wellness December 03, 2024 8:18a m Reason for Visit Admit Date Atrial fibrillation December 03, 2024 8:18a m Benign prostatic hyperplasia with lower urinary tract symptoms December 03, 2024 8:18am Hypercholesterolemia December 03, 2024 8:18 am Hypertension December 03, 2024 8:18a m DICK (obstructive sleep apnea) December 03, 2024 8:18am Screening PSA (prostate specific antigen ) December 03, 2024 8:18am Wellness examination December 03, 2024 8:18 am Chief Complaint Admit Date wellness December 03, 2024 8:27a m Reason for Visit Admit Date Atrial fibrillation December 03, 2024 8:27a m Hypercholesterolemia December 03, 2024 8:27 am Hypertension December 03, 2024 8:27a m DICK (obstructive sleep apnea) December 03, 2024 8:27am Screening PSA (prostate specific antigen ) December 03, 2024 8:27am Wellness examination December 03, 2024 8:27 am Additional Source Comments (unrecognized sect ion and content) No Status Records FoundNo Status Records FoundNo Status Records FoundNo Status Records FoundNo Status Records FoundNo Status Records Found INFORMATION SOURCE (unrecogn ized section and content) DATE CREATED AUTHOR 02/02/2020 [facility] DATE CREATED AUTHOR AUTHOR'S ORGANIZ ATION 08/04/2021 [facility] DATE CREATED AUTHOR AUTHOR'S ORGANIZ ATION 03/23/2022 [facility] DATE CREATED AUTHOR AUTHOR'S ORGANIZ ATION 12/03/2023 [facility] DATE CREATED AUTHOR AUTHOR'S ORGANIZ ATION 01/30/2025 [facility] DATE CREATED AUTHOR AUTHOR'S ORGANIZ ATION 04/04/2025 [facility] Source Comments (unrecognize d section and content) In the event this informatio n is protected by the Federal Confidentiality of Alcohol and Drug Abuse Patient Records regulations: The Federal rules restrict any use of the information to criminally investigate or prosecute any alcohol or drug abuse patient.[facility] the event this information is protected by the Federal Confidentiality of Alcohol and Drug Abuse Patient Records regulations: The Federal rules restrict any use of the information to criminally investigate or prosecute any alcohol or drug abuse patient.[facility] the event this information is protected by the Federal Confidentiality of Alcohol and Drug Abuse Patient Records regulations: The Federal rules restrict any use of the information to criminally investigate or prosecute any alcohol or drug abuse patient.[facility] the event this information is protected by the Federal Confidentiality of Alcohol and Drug Abuse Patient Records regulations: The Federal rules restrict any use of the information to criminally investigate or prosecute any alcohol or drug abuse patient.[facility] the event this information is protected by the Federal Confidentiality of Alcohol and Drug Abuse Patient Records regulations: The Federal rules restrict any use of the information to criminally investigate or prosecute any alcohol or drug abuse patient.[facility] the event this information is protected by the Federal Confidentiality of Alcohol and Drug Abuse Patient Records regulations: The Federal rules restrict any use of the information to criminally investigate or prosecute any alcohol or drug abuse patient.[facility] the event this information is protected by the Federal Confidentiality of Alcohol and Drug Abuse Patient Records regulations: The Federal rules restrict any use of the information to criminally investigate or prosecute any alcohol or drug abuse patient.[facility] the event this information is protected by the Federal Confidentiality of Alcohol and Drug Abuse Patient Records regulations: The Federal rules restrict any use of the information to criminally investigate or prosecute any alcohol or drug abuse patient.[facility] the event this information is protected by the Federal Confidentiality of Alcohol and Drug Abuse Patient Records regulations: The Federal rules restrict any use of the information to criminally investigate or prosecute any alcohol or drug abuse patient.[facility] Hospital[facility] the event this information is protected by the Federal Confidentiality of Alcohol and Drug Abuse Patient Records regulations: The Federal rules restrict any use of the information to criminally investigate or prosecute any alcohol or drug abuse patient.[facility] Hospital[facility] the event this information is protected by the Federal Confidentiality of Alcohol and Drug Abuse Patient Records regulations: The Federal rules restrict any use of the information to criminally investigate or prosecute any alcohol or drug abuse patient.[facility] Hospital[facility] the event this information is protected by the Federal Confidentiality of Alcohol and Drug Abuse Patient Records regulations: The Federal rules restrict any use of the information to criminally investigate or prosecute any alcohol or drug abuse patient.[facility] Hospital[facility] the event this information is protected by the Federal Confidentiality of Alcohol and Drug Abuse Patient Records regulations: The Federal rules restrict any use of the information to criminally investigate or prosecute any alcohol or drug abuse patient.[facility] Hospital[facility] the event this information is protected by the Federal Confidentiality of Alcohol and Drug Abuse Patient Records regulations: The Federal rules restrict any use of the information to criminally investigate or prosecute any alcohol or drug abuse patient.[facility] Hospital[facility] the event this information is protected by the Federal Confidentiality of Alcohol and Drug Abuse Patient Records regulations: The Federal rules restrict any use of the information to criminally investigate or prosecute any alcohol or drug abuse patient.[facility] Hospital[facility] the event this information is protected by the Federal Confidentiality of Alcohol and Drug Abuse Patient Records regulations: The Federal rules restrict any use of the information to criminally investigate or prosecute any alcohol or drug abuse patient.[facility] the event this information is protected by the Federal Confidentiality of Alcohol and Drug Abuse Patient Records regulations: The Federal rules restrict any use of the information to criminally investigate or prosecute any alcohol or drug abuse patient.[facility] HospitalIn the event this information is protected by the Federal Confidentiality of Alcohol and Drug Abuse Patient Records regulations: The Federal rules restrict any use of the information to criminally investigate or prosecute any alcohol or drug abuse patient.[facility] Hospital[facility] the event this information is protected by the Federal Confidentiality of Alcohol and Drug Abuse Patient Records regulations: The Federal rules restrict any use of the information to criminally investigate or prosecute any alcohol or drug abuse patient.[facility] Hospital[facility] the event this information is protected by the Federal Confidentiality of Alcohol and Drug Abuse Patient Records regulations: The Federal rules restrict any use of the information to criminally investigate or prosecute any alcohol or drug abuse patient.[facility] Hospital[facility] the event this information is protected by the Federal Confidentiality of Alcohol and Drug Abuse Patient Records regulations: The Federal rules restrict any use of the information to criminally investigate or prosecute any alcohol or drug abuse patient.[facility] HospitalIn the event this information is protected by the Federal Confidentiality of Alcohol and Drug Abuse Patient Records regulations: The Federal rules restrict any use of the information to criminally investigate or prosecute any alcohol or drug abuse patient.[facility] HospitalIn the event this information is protected by the Federal Confidentiality of Alcohol and Drug Abuse Patient Records regulations: The Federal rules restrict any use of the information to criminally investigate or prosecute any alcohol or drug abuse patient.[facility] HospitalIn the event this information is protected by the Federal Confidentiality of Alcohol and Drug Abuse Patient Records regulations: The Federal rules restrict any use of the information to criminally investigate or prosecute any alcohol or drug abuse patient.[facility] HospitalIn the event this information is protected by the Federal Confidentiality of Alcohol and Drug Abuse Patient Records regulations: The Federal rules restrict any use of the information to criminally investigate or prosecute any alcohol or drug abuse patient.[facility] HospitalIn the event this information is protected by the Federal Confidentiality of Alcohol and Drug Abuse Patient Records regulations: The Federal rules restrict any use of the information to criminally investigate or prosecute any alcohol or drug abuse patient.[facility] HospitalIn the event this information is protected by the Federal Confidentiality of Alcohol and Drug Abuse Patient Records regulations: The Federal rules restrict any use of the information to criminally investigate or prosecute any alcohol or drug abuse patient.[facility] HospitalIn the event this information is protected by the Federal Confidentiality of Alcohol and Drug Abuse Patient Records regulations: The Federal rules restrict any use of the information to criminally investigate or prosecute any alcohol or drug abuse patient.[facility] the event this information is protected by the Federal Confidentiality of Alcohol and Drug Abuse Patient Records regulations: The Federal rules restrict any use of the information to criminally investigate or prosecute any alcohol or drug abuse patient.[facility] HospitalIn the event this information is protected by the Federal Confidentiality of Alcohol and Drug Abuse Patient Records regulations: The Federal rules restrict any use of the information to criminally investigate or prosecute any alcohol or drug abuse patient.[facility] HospitalIn the event this information is protected by the Federal Confidentiality of Alcohol and Drug Abuse Patient Records regulations: The Federal rules restrict any use of the information to criminally investigate or prosecute any alcohol or drug abuse patient.[facility] HospitalIn the event this information is protected by the Federal Confidentiality of Alcohol and Drug Abuse Patient Records regulations: The Federal rules restrict any use of the information to criminally investigate or prosecute any alcohol or drug abuse patient.[facility] HospitalIn the event this information is protected by the Federal Confidentiality of Alcohol and Drug Abuse Patient Records regulations: The Federal rules restrict any use of the information to criminally investigate or prosecute any alcohol or drug abuse patient.[facility] HospitalIn the event this information is protected by the Federal Confidentiality of Alcohol and Drug Abuse Patient Records regulations: The Federal rules restrict any use of the information to criminally investigate or prosecute any alcohol or drug abuse patient.[facility] HospitalIn the event this information is protected by the Federal Confidentiality of Alcohol and Drug Abuse Patient Records regulations: The Federal rules restrict any use of the information to criminally investigate or prosecute any alcohol or drug abuse patient.[facility] HospitalIn the event this information is protected by the Federal Confidentiality of Alcohol and Drug Abuse Patient Records regulations: The Federal rules restrict any use of the information to criminally investigate or prosecute any alcohol or drug abuse patient.[facility] HospitalIn the event this information is protected by the Federal Confidentiality of Alcohol and Drug Abuse Patient Records regulations: The Federal rules restrict any use of the information to criminally investigate or prosecute any alcohol or drug abuse patient.[facility] HospitalIn the event this information is protected by the Federal Confidentiality of Alcohol and Drug Abuse Patient Records regulations: The Federal rules restrict any use of the information to criminally investigate or prosecute any alcohol or drug abuse patient.[facility] HospitalIn the event this information is protected by the Federal Confidentiality of Alcohol and Drug Abuse Patient Records regulations: The Federal rules restrict any use of the information to criminally investigate or prosecute any alcohol or drug abuse patient.[facility] HospitalIn the event this information is protected by the Federal Confidentiality of Alcohol and Drug Abuse Patient Records regulations: The Federal rules restrict any use of the information to criminally investigate or prosecute any alcohol or drug abuse patient.[facility] HospitalIn the event this information is protected by the Federal Confidentiality of Alcohol and Drug Abuse Patient Records regulations: The Federal rules restrict any use of the information to criminally investigate or prosecute any alcohol or drug abuse patient.[facility] HospitalIn the event this information is protected by the Federal Confidentiality of Alcohol and Drug Abuse Patient Records regulations: The Federal rules restrict any use of the information to criminally investigate or prosecute any alcohol or drug abuse patient.[facility] HospitalIn the event this information is protected by the Federal Confidentiality of Alcohol and Drug Abuse Patient Records regulations: The Federal rules restrict any use of the information to criminally investigate or prosecute any alcohol or drug abuse patient.[facility] HospitalIn the event this information is protected by the Federal Confidentiality of Alcohol and Drug Abuse Patient Records regulations: The Federal rules restrict any use of the information to criminally investigate or prosecute any alcohol or drug abuse patient.[facility] HospitalIn the event this information is protected by the Federal Confidentiality of Alcohol and Drug Abuse Patient Records regulations: The Federal rules restrict any use of the information to criminally investigate or prosecute any alcohol or drug abuse patient.[facility] HospitalIn the event this information is protected by the Federal Confidentiality of Alcohol and Drug Abuse Patient Records regulations: The Federal rules restrict any use of the information to criminally investigate or prosecute any alcohol or drug abuse patient.[facility] HospitalIn the event this information is protected by the Federal Confidentiality of Alcohol and Drug Abuse Patient Records regulations: The Federal rules restrict any use of the information to criminally investigate or prosecute any alcohol or drug abuse patient.[facility] HospitalIn the event this information is protected by the Federal Confidentiality of Alcohol and Drug Abuse Patient Records regulations: The Federal rules restrict any use of the information to criminally investigate or prosecute any alcohol or drug abuse patient.[facility] HospitalIn the event this information is protected by the Federal Confidentiality of Alcohol and Drug Abuse Patient Records regulations: The Federal rules restrict any use of the information to criminally investigate or prosecute any alcohol or drug abuse patient.[facility] HospitalIn the event this information is protected by the Federal Confidentiality of Alcohol and Drug Abuse Patient Records regulations: The Federal rules restrict any use of the information to criminally investigate or prosecute any alcohol or drug abuse patient.[facility] HospitalIn the event this information is protected by the Federal Confidentiality of Alcohol and Drug Abuse Patient Records regulations: The Federal rules restrict any use of the information to criminally investigate or prosecute any alcohol or drug abuse patient.[facility] HospitalIn the event this information is protected by the Federal Confidentiality of Alcohol and Drug Abuse Patient Records regulations: The Federal rules restrict any use of the information to criminally investigate or prosecute any alcohol or drug abuse patient.[facility] Reason for Visit (unrecogniz ed section and content) Reason Comments Follow Up Reason Comments Follow Up Reason Comments Orders Reason Comments Results Orders Specialty Diagnoses / Procedures Referred By Contac Referred To Contact CT IMAGING Diagnoses Under observation for suspected coronary artery disease Abnormal nuclear stress test Procedures CTA CORONARY W IVCON CTA HRT CORNRY ART/BYPASS GRFTS CONTR[place] 3[place] [address] [place] [address] Ct Imaging Referral ID Status Reason Start Date Expiration Date V isits Requested Visits Authorized [id number] Closed Auto-Generate d Referral 11/28/2021 12/29/2021 1 [...] W/LEAST 12 LDS W/I&R Layla Roger PA-C [address] [place] [address] [facility] [address] [place] [address] Referral ID Status Reason Start Date Expiration Date V isits Requested Visits Authorized [id number] Closed Auto-Generate d Referral 11/08/2023 11/07/2024 1 1 Reason Comments Patient is Back in Afib Reason Onset Date Comments Refill Request 01/14/2025 Reason Comments Established Patient Reason Onset Date Comments Procedure 01/06/2025 Cardioversion re scheduling Care Teams (unrecognized sec tion and content) Team Status: Active Member Role Status Dates Tae Martinez DO Primary Care Provider Active Team Status: Inactive Member Role Status Dates Tae Martinez DO Primary Care Provide r, Attending Provider Active Start: December 03, 2024 End: December 03, 2024 Research Computing Specialist Relationship Specialty Start Date End Date Tae Martinez Haley, DO [address] [facility] [place] [address] PCP - General Internal Medicine 03/08/21 Research Computing Specialist Relationship Specialty Start Date End Date Tae Martinez Haley, DO [address] [facility] [place] [address] PCP - General Internal Medicine 03/08/21 Research Computing Specialist Relationship Specialty Start Date End Date Tae Martinez Haley, DO [address] [facility] [facility] [place] [address] PCP - General Internal Medicine 03/08/21 Research Computing Specialist Relationship Specialty Start Date End Date Juan Tae De Leon, DO [address] [facility] [place] [address] PCP - General Internal Medicine 03/08/21 Research Computing Specialist Relationship Specialty Start Date End Date Tae Martinez Haley, DO [address] [facility] [place] [address] PCP - General Internal Medicine 03/08/21 Research Computing Specialist Relationship Specialty Start Date End Date Tae Martinez, DO [address] [facility] [place] [address] PCP - General Internal Medicine 03/08/21 Research Computing Specialist Relationship Specialty Start Date End Date Tae Martinez, DO [address] [place] [address] PCP - General Internal Medicine 03/08/21 Research Computing Specialist Relationship Specialty Start Date End Date Tae Martinez, DO [address] [place] [address] PCP - General Internal Medicine 03/08/21 Research Computing Specialist Relationship Specialty Start Date End Date Tae Martinez, DO [address] [place] [address] PCP - General Internal Medicine 03/08/21 Research Computing Specialist Relationship Specialty Start Date End Date Tae Martinez, DO [address] [place] [address] PCP - General Internal Medicine 03/08/21 Research Computing Specialist Relationship Specialty Start Date End Date Tae Martinez, DO [address] [place] [address] PCP - General Internal Medicine 03/08/21 Research Computing Specialist Relationship Specialty Start Date End Date Tae Martinez, DO [address] [place] [address] PCP - General Internal Medicine 03/08/21 Research Computing Specialist Relationship Specialty Start Date End Date Tae Martinez, DO [address] [place] [address] PCP - General Internal Medicine 03/08/21 Research Computing Specialist Relationship Specialty Start Date End Date Tae Martinez, DO [address] [place] [address] PCP - General Internal Medicine 03/08/21 Research Computing Specialist Relationship Specialty Start Date End Date Tae Martinez, DO [address] [place] [address] PCP - General Internal Medicine 03/08/21 Research Computing Specialist Relationship Specialty Start Date End Date Tae Martinez DO [address] [place] [place] [address] PCP - General Internal Medicine 03/08/21 Research Computing Specialist Relationship Specialty Start Date End Date Tae Martinez DO [address] [place] [place] [place] [address] PCP - General Internal Medicine 03/08/21 Research Computing Specialist Relationship Specialty Start Date End Date Tae Martinez DO [address] [place] [place] [address] PCP - General Internal Medicine 03/08/21 Research Computing Specialist Relationship Specialty Start Date End Date Tae Martinez DO [address] [place] [place] [address] PCP - General Internal Medicine 03/08/21 Research Computing Specialist Relationship Specialty Start Date End Date Tae Martinez DO [address] [place] [place] [address] PCP - General Internal Medicine 03/08/21 Research Computing Specialist Relationship Specialty Start Date End Date Tae Martinez DO [address] [place] [place] [address] PCP - General Internal Medicine 03/08/21 Research Computing Specialist Relationship Specialty Start Date End Date Tae Martinez DO [address] [place] [place] [address] PCP - General Internal Medicine 03/08/21 Research Computing Specialist Relationship Specialty Start Date End Date Tae Martinez DO [address] [place] [place] [address] PCP - General Internal Medicine 03/08/21 Research Computing Specialist Relationship Specialty Start Date End Date Tae Martinez DO [address] [place] [place] [address] PCP - General Internal Medicine 03/08/21 Research Computing Specialist Relationship Specialty Start Date End Date Tae Martinez DO [address] [place] [place] [address] PCP - General Internal Medicine 03/08/21 Research Computing Specialist Relationship Specialty Start Date End Date Tae Martinez DO [address] [place] [place] [address] PCP - General Internal Medicine 03/08/21 Research Computing Specialist Relationship Specialty Start Date End Date Tae Martinez DO [address] [place] [address] PCP - General Internal Medicine 03/08/21 Team Status: Active Member Role Status Dates Tae Martinez DO Primary Care Provide r, Attending Provider Active Start: December 03, 2024 Research Computing Specialist Relationship Specialty Start Date End Date Tae Martinez DO [address] [place] [place] [address] PCP - General Internal Medicine 03/08/21 Research Computing Specialist Relationship Specialty Start Date End Date Tae Martinez DO [address] [place] [place] [address] PCP - General Internal Medicine 03/08/21 Research Computing Specialist Relationship Specialty Start Date End Date Tae Martinez DO [address] [place] [place] [address] PCP - General Internal Medicine 03/08/21 Research Computing Specialist Relationship Specialty Start Date End Date Tae Martinez DO [address] [place] [address] PCP - General Internal Medicine 03/08/21 Goals (unrecognized section and content) Goals may be documented in a n alternate section FOR RECORDS PERTAINING TO PATIENTS WHO ARE [...] BE BASED ON THE PRIMARY CLINICAL RECORDS. [facility] [employer] [facility]. provides no warranty or guarantee of the accuracy or completeness of information in this document.
--- OUTSIDE RECORDS SUMMARY | 2025-04-28 08:28 | XMS_ITS | Encounter Summary ---
Author Organization [facility] Address [address] [place] [address] Care Team Providers Care Enroute Controller Name Role Phone Tae Talamantes DO Primary Care Provider [phone] Source Comments In the event this information is protected by the Federal Confidentiality of Alcohol and Drug AbusePatient Records regulations: The Federal rules restrict any use of the information to criminally investigate or prosecute any alcohol or drug abuse patient.[facility] Encounter Details Date Type Department Care Team (Latest Contact Info) Description 12/01/2021 Patient Msg Cardiology [address] [place] [address] Provider, Eleazar 12/19/2021 Heart catheterization [...] N ot on file 06/21/2020 Data from: https://www.neighborhoodatlas.[email or web address]/. Last address used for calculation Not on [...] 06/04/2025 8:40 AM EST Office Visit Cardiology [address] [place] [address] [place] [address] [place] [address] 3m s/p dcc 09/08/2025 8:00 AM EST Office Visit Endocrinology [address] [place] [address] Antoinette Horn MD [address] [place] [address] Follow up 12/03/2025 8:00 AM EDT Office Visit Cardiology [address] [place] [address] [place] [address] [place] [address] 9 month follow up documented as of this encounter Visit Diagnoses Not on filedocumented in this encounter Care Teams Enroute Controller Relationship Specialty Start Date End Date Tae Talamantes DO [address] [place] [address] PCP - General Internal Medicine 03/08/21 documented as of this encounter
--- OUTSIDE RECORDS SUMMARY | 2025-04-28 08:28 | XMS_ITS | Encounter Summary ---
Author Organization [facility] Address [address] [place] [address] Care Team Providers Care Pullboat Engineer Name Role Phone Tae Talamantes Primary Care Provider [phone] Source Comments In the event this information is protected by the Federal Confidentiality of Alcohol and Drug AbusePatient Records regulations: The Federal rules restrict any use of the information to criminally investigate or prosecute any alcohol or drug abuse patient.[facility] Encounter Details Date Type Department Care Team (Late st Contact Info) Description 11/22/2023 Patient Msg Cardiology [address] [place] [address] Provider, [facility] Social History [...] is lower risk 4 11/14/2022 Data from: https://www.neighborhoodatlas.[facility]icine[facility]/. Last address used for calculation [address] 11/14/2022 Sex and Gender Information Value Date [...] 06/04/2025 8:40 AM EST Office Visit Cardiology [address] [place] [address] [place] [address] [place] [address] 3m s/p dcc 09/08/2025 8:00 AM EST Office Visit Endocrinology [address] [place] [address] Antoinette Horn MD [address] [place] [address] Follow up 12/03/2025 8:00 AM EDT Office Visit Cardiology [address] [place] [address] [place] [address] [place] [address] 9 month follow up documented as of this encounter Goals Goal Patient Goal Type Associated Problems Recent Progress Patient-Stated? Author Blood Pressure < 130/80 Blood Pressure 124/66( 025 11:22 AM EDT) No Layla Roger PA-C documented as of this encounter Visit Diagnoses Not on filedocumented in this encounter Care Teams Pullboat Engineer Relationship Specialty Start Date End Date Tae Talamantes DO [address] [place] [address] PCP - General Internal Medicine 03/08/21 documented as of this encounter
[2025-04-28 09:22] LABS: Thyroid Stimulating Hormone 5.987 uIU/mL (0.358-3.740)
== END 2025-04-28 08:24 | disposition home or self-care (01) ==
PROVIDERS: PCP Internal Medicine; Visit Provider Internal Medicine
DX: E03.9 Hypothyroidism, unspecified (principal)
CPT/HCPCS: 36415; 84439; 84443; 84480